=== PATIENT | female | born 1935 | race Caucasian/White ===

== ENCOUNTER 2016-06-29 09:10 | Emergency (ER) | payer OTHER, BC ==
--- NOTE | 2016-06-29 09:19 | PDOC ---
History of Present Illness - General Chief Complaint: Urinary Problem Stated Complaint: URINARY SX, DOESNT FEEL WELL, COUGH Time Seen by Provider: 06/29/16 09:14 History Source: Patient Exam Limitations: No Limitations - History of Present Illness Initial Comments: 06/29/16 09:24 This is an 80 yo F with a history of paroxysmal Afib on Elliquis and cardizem who presents to the ER with a complaint of dysuria and feeling ill. Briefly, pt symptoms began three weeks ago She called EMS due to palpitations, was brought to [facility] ER Kept overnight and rate controlled She was found to have a UTI Started on an anitbiotic but she can not remember the name She was brought to the ER again 5 days later due to palpitations, again rapid Afib Kept in the ER for 6 hours and discharged to home Pt was then seen by her Charter Boat Captain who is scheduling her for a pacemaker in 10 days. She reported UTI symptoms and was treated again with Cipro which she has taken. She was also seen at an urgent care x 2. 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 HEAD, EYES, EARS, NOSE AND THROAT: No: change in vision, ear pain, discharge, sore throat, throat swelling. CARDIOVASCULAR: No: chest pain, lightheadedness, palpitations, syncope RESPIRATORY: Yes: productive cough No: shortness of breath, wheezing, hemoptysis , stridor. GASTROINTESTINAL: No: nausea, vomiting, diarrhea, abdominal pain. GENITOURINARY: No: dysuria, hematuria, frequency, urgency, flank pain. MUSCULOSKELETAL: No: back pain, neck pain, joint pain, muscle swelling or pain SKIN AND BREASTS: No: lesions, pallor, rash or easy bruising. NEUROLOGIC: No: headache, vertigo, paresthesias, weakness ENDOCRINE: No: unexplained weight gain or loss HEMATOLOGIC/LYMPHATIC: No: anemia, easy bleeding, swelling nodes. GENERAL: The patient is in no acute distress. HEAD: Normal with no signs of trauma. EYES: PERRLA, EOMI, sclera anicteric, conjunctiva clear. ENT: Ears normal, nares patent, oropharynx clear without exudates. Moist mucous membranes. NECK: Normal range of motion, supple without lymphadenopathy, JVD, or masses. LUNGS: Breath sounds equal, clear to auscultation bilaterally. (+) rhonchi RUL HEART:Regular rate and rhythm, normal S1 and S2 without murmur, rub or gallop. ABDOMEN: Soft, nontender, normoactive bowel sounds. No guarding, no rebound. No masses palpable. EXTREMITIES: Normal range of motion, no edema. No clubbing or cyanosis. No erythema, or tenderness. NEUROLOGICAL: Cranial nerves II through XII grossly intact. Normal speech. No focal neurological deficits. MUSCULOSKELETAL: Back non-tender to palpation, no CVA tenderness SKIN: Warm, Dry, normal turgor, no rashes or lesions noted. 06/29/16 10:17 Past History - Past Medical History Allergies/Adverse Reactions: Allergies Allergy/AdvReac Type Severity Reaction Status Date / Time No Known Allergies Allergy Verified 06/29/16 09:14 Home Medications: Ambulatory Orders Apixaban [Eliquis -] 2.5 mg PO BID 06/29/16 Atorvastatin Ca [Lipitor] 10 mg PO HS 06/29/16 Cefpodoxime Proxetil [Vantin -] 100 mg PO BID #14 tablet 06/29/16 Diltiazem Cd [Cardizem Cd -] 240 mg PO DAILY 06/29/16 Fluoxetine HCl 10 mg PO AM 06/29/16 Prednisone [Deltasone -] 20 mg PO DAILY 06/29/16 Cardiac Disorders: Yes (AFIB) GI Disorders: Yes (INDIGESTION, HIATAL HERNIA) - Surgical History Cardiac Surgery: Yes (AV NODE ABLATION) - Immunization History Td Vaccination: Yes Immunization Up to Date: (UNKNOWN) - Psycho/Social/Smoking Cessation Hx Anxiety: No Suicidal Ideation: No Smoking Status: No Smoking History: Former smoker Have you smoked in the past 12 months: No Number of Cigarettes Smoked Daily: 0 If you are a former smoker, when did you quit?: 30 YEARS AGO Hx Alcohol Use: No Drug/Substance Use Hx: No Substance Use Type: None Hx Substance Use Treatment: No Heart Score/ECG Review #1 ECG reviewed & interpreted by me at: 10:18 06/29/16 10:18 Twelve-lead EKG was performed and reviewed by me. There is normal sinus rhythm with a slightly bradycardiac rate of 56 bpm. The axis is normal. The intervals are normal - pr:122ms, QRS:80ms, QTc:416ms. There are no ST or T wave abnormalities. ED Treatment Course - LABORATORY CBC & Chemistry Diagram: 06/29/16 09:51 06/29/16 09:51 Medical Decision Making - Medical Decision Making 06/29/16 10:17 Will do basic labs Will do X ray Will give IVF Will do EKG will re asess 06/29/16 10:22 Laboratory Tests 06/29/16 09:15 Urine Blood Negative Urine Nitrite Negative Ur Leukocyte Esterase Trace H 06/29/16 11:01 06/29/16 11:02 Laboratory Tests 06/29/16 06/29/16 06/29/16 09:51 09:51 09:51 WBC 15.6 H D Hgb 11.2 Hct 34.2 Plt Count 328 D Neutrophils % 76.6 D Lymphocytes % 11.4 D BUN 28 H D Creatinine 0.8 Random Glucose 88 D Creatine Kinase 36 Troponin I < 0.03 L 06/29/16 11:02 CXR: negative Pt states she spoke with her and he was upset that she left the home and he didn't know about it Pt states she does not want to stay in the hospital, which I recommended Pt elevated WBC is likely the result of prednisone use (she stopped taking 20mg BID yesterday, she took it for a total for 3 days) vs. URI No fevers Other labs nml Will discharge ot home (+) UTI Will give Cefpodoxime Follow up in 2 days with PMD (already scheduled) Clinical Impression: UTI, leukocytosis *DC/Admit/Observation/Transfer Diagnosis at time of Disposition: Urinary tract infection Qualifiers: Urinary tract infection type: acute cystitis Hematuria presence: without hematuria Qualified Code(s): N30.00 - Acute cystitis without hematuria - Discharge Dispostion Disposition: HOME Condition at time of disposition: Stable Admit: No - Patient Instructions Printed Discharge Instructions: DI for Urinary Tract Infection (UTI) Additional Instructions: Maci Thank you for coming in to the ER today Please take medications as prescribed You can stop the Prednisone Please monitor yourself for fevers and chills Keep your follow up appointment with your PMD Return to the ER for any other concerns or complaints
[2016-06-29 09:23] VITALS: TEMP 97.7; BMI 23.6
[2016-06-29 09:35] LABS: URINE APPEARANCE Clear; URINE BILIRUBIN Negative (NEGATIVE); URINE BLOOD Negative (NEGATIVE); URINE GLUCOSE (UA) Negative (NEGATIVE); URINE KETONE Negative (NEGATIVE); URINE NITRITE Negative (NEGATIVE); URINE PROTEIN Negative (NEGATIVE); URINE UROBILINOGEN 0.2 E.U/dl (0.2-1.0)
[2016-06-29] MEDS ORDERED: SODIUM CHLORIDE 500 ML IV STA (09:39)
[2016-06-29 09:45] LABS: URINE COLOR YELLOW; URINE LEUK ESTERASE TRACE (NEGATIVE)
[2016-06-29 10:18] LABS: MCH 30.3 pg (25.7-33.7); MCHC 32.6 g/dl (32.0-36.0); MEAN CELL VOLUME 92.9 fl (80-96); NEUTROPHILS 76.6 % (42.8-82.8); PLATELET COUNT 328 K/MM3 (134-434); RDW 12.7 % (11.6-15.6); WHITE BLOOD COUNT 15.6 K/mm3 (4.0-10.0)
[2016-06-29 10:22] LABS: URINE AMORPHOUS SEDIMENT 1+; URINE RBC 0-3 /hpf (0-3)
[2016-06-29 10:37] LABS: ALBUMIN 3.6 g/dl (3.5-5.0); ALK PHOS 75 U/L (32-92); ANION GAP 10 (8-16); CALCIUM 9.1 mg/dl (8.4-10.2); CO2 26 mmol/L (22-28); CREATININE 0.8 mg/dl (0.6-1.3); GLUCOSE,RANDOM 88 mg/dl (74-106); SGOT/AST 20 U/L (10-42); SGPT/ALT 12 U/L (10-40); TOT PROT 6.6 g/dl (6.4-8.3)
[2016-06-29 10:38] LABS: CPK(DFH) 36 IU/L (26-140)
[2016-06-29 10:48] LABS: TROPONIN I (DFP) < 0.03 ng/ml (0.03-0.50)
[2016-06-29 11:23] VITALS: BP 128/68; PULSE 75
[2016-06-29 11:24] LABS: BILIRUBIN,TOTAL < 0.3 mg/dl (0.2-1.0)
--- NOTE | 2016-06-30 21:34 | EKG ---
Test Reason : Blood Pressure : / mmHG Vent. Rate : 056 BPM Atrial Rate : 056 BPM P-R Int : 122 ms QRS Dur : 080 ms QT Int : 432 ms P-R-T Axes : 058 024 040 degrees QTc Int : 416 ms SINUS BRADYCARDIA OTHERWISE NORMAL ECG WHEN COMPARED WITH ECG OF 03-JUN-2015 15:17, NO SIGNIFICANT CHANGE WAS FOUND Confirmed by JESSICA LOPEZ MD ([id number]) on 06/30/2016 9:33:30 PM Referred By: TROY CARCAMO Confirmed By:JESSICA LOPEZ MD
== END 2016-06-29 11:25 | disposition home or self-care (01) ==
LOC: FER 09:10
DX: N30.00 Acute cystitis without hematuria (principal); I48.91 Unspecified atrial fibrillation; Z79.01 Long term (current) use of anticoagulants; Z87.891 Personal history of nicotine dependence
CPT/HCPCS: 36415; 71010-TC; 80053; 81003; 81015; 82550; 84484; 85025; 87086; 93005; 99285-25

== ENCOUNTER 2016-09-06 14:48 | Emergency (ER) | payer OTHER, BC ==
[2016-09-06 14:55] VITALS: TEMP 98.3; BMI 23.6
--- NOTE | 2016-09-06 14:55 | PDOC ---
History of Present Illness - General History Source: Patient Exam Limitations: No Limitations <Arya Gama - Last Filed: 09/06/16 15:06> - History of Present Illness Beta Steve taken at Home (Core Measure): Yes (atenelol) <Jose De La Garza - Last Filed: 09/06/16 17:21> - General Chief Complaint: Palpitations Stated Complaint: PALPITATIONS Time Seen by Provider: 09/06/16 14:55 - History of Present Illness Initial Comments: 09/06/16 15:06 The patient is a 80 year old female with a significant past medical history of paroxysmal Afib on Elliquis and cardizem who presents to the ER with a rapid heart beat since today. Patient states she was driving her to the ER when she started feeling her heart beat faster. She denies chest pain, back pain, SOB, fever, chills, nausea, vomiting. She had a Pacemaker placed jul 07 2016. Flat Machine C[facility] (Arya Gama) Past History <Arya Gama - Last Filed: 09/06/16 15:06> - Past Medical History Cardiac Disorders: Yes (AFIB) GI Disorders: Yes (INDIGESTION, HIATAL HERNIA) - Surgical History Cardiac Surgery: Yes (AV NODE ABLATION) - Immunization History Td Vaccination: Yes Immunization Up to Date: (UNKNOWN) - Psycho/Social/Smoking Cessation Hx Anxiety: No Suicidal Ideation: No Smoking Status: No Smoking History: Former smoker Have you smoked in the past 12 months: No Number of Cigarettes Smoked Daily: 0 If you are a former smoker, when did you quit?: 30 YEARS AGO Hx Alcohol Use: No Drug/Substance Use Hx: No Substance Use Type: None Hx Substance Use Treatment: No <Jose De La Garza - Last Filed: 09/06/16 17:21> - Past Medical History Allergies/Adverse Reactions: Allergies Allergy/AdvReac Type Severity Reaction Status Date / Time No Known Allergies Allergy Verified 09/06/16 14:49 Home Medications: Ambulatory Orders Apixaban [Eliquis -] 2.5 mg PO BID 06/29/16 Atorvastatin Ca [Lipitor] 10 mg PO HS 06/29/16 Review of Systems - Review of Systems Able to Perform ROS?: Yes <Arya Gama - Last Filed: 09/06/16 15:06> <Jose De La Garza - Last Filed: 09/06/16 17:21> - Review of Systems Comments:: 09/06/16 15:06 GENERAL/CONSTITUTIONAL: No fever or chills. No weakness. HEAD, EYES, EARS, NOSE AND THROAT: No change in vision. No ear pain or discharge. No sore throat. CARDIOVASCULAR: + rapid heart beat. No chest pain or shortness of breath. RESPIRATORY: No cough, wheezing, or hemoptysis. GASTROINTESTINAL: No nausea, vomiting, diarrhea or constipation. GENITOURINARY: No dysuria, frequency, or change in urination. MUSCULOSKELETAL: No joint or muscle swelling or pain. No neck or back pain. SKIN: No rash NEUROLOGIC: No headache, vertigo, loss of consciousness, or change in strength/ sensation. ENDOCRINE: No increased thirst. No abnormal weight change. HEMATOLOGIC/LYMPHATIC: No anemia, easy bleeding, or history of blood clots. ALLERGIC/IMMUNOLOGIC: No hives or skin allergy. (Arya Gama) *Physical Exam <Arya Gama - Last Filed: 09/06/16 15:06> <Jose De La Garza - Last Filed: 09/06/16 17:21> - Vital Signs Last Vital Signs Temp Pulse Resp BP Pulse Ox 98.3 F 93 H 18 111/68 97 09/06/16 14:49 09/06/16 15:00 09/06/16 15:00 09/06/16 14:49 09/06/16 15:00 - Physical Exam Comments: 09/06/16 15:07 GENERAL: Awake, alert, and fully oriented, in no acute distress HEAD: No signs of trauma EYES: PERRLA, EOMI, sclera anicteric, conjunctiva clear ENT: Auricles normal inspection, hearing grossly normal, nares patent, oropharynx clear without exudates. Moist mucosa NECK: Normal ROM, supple, no lymphadenopathy, JVD, or masses LUNGS: Breath sounds equal, clear to auscultation bilaterally. No wheezes, and no crackles HEART: Regular rate and rhythm, normal S1 and S2, no murmurs, rubs or gallops ABDOMEN: Soft, nontender, normoactive bowel sounds. No guarding, no rebound. No masses EXTREMITIES: Normal range of motion, no edema. No clubbing or cyanosis. No cords, erythema, or tenderness NEUROLOGICAL: Cranial nerves II through XII grossly intact. Normal speech, normal gait SKIN: Warm, Dry, normal turgor, no rashes or lesions noted. (Arya Gama) Heart Score/ECG Review <Arya Gama - Last Filed: 09/06/16 15:06> - ECG Intrepretation Rhythm: Regular Rhythm - [place]: Normal - ST and T Non Specific ST-T Wave changes: No <Jose De La Garza - Last Filed: 09/06/16 17:21> - ECG Intrepretation Comment:: 09/06/16 15:[address] changes. (Arya Gama) - ECG Impressions Comment:: 09/06/16 17:20 NSR at 88 (Jose De La Garza) ED Treatment Course <Arya Gama - Last Filed: 09/06/16 15:06> - LABORATORY CBC & Chemistry Diagram: 09/06/16 15:15 09/06/16 15:15 <Jose De La Garza - Last Filed: 09/06/16 17:21> - ADDITIONAL ORDERS Additional order review: Laboratory Results 09/06/16 09/06/16 15:15 15:15 Sodium 141 Potassium 4.1 Chloride 107 Carbon Dioxide 24 Anion Gap 10 BUN 22 H D Creatinine 0.9 Creat Clearance w eGFR > 60 Random Glucose 128 H D Calcium 8.9 Total Bilirubin 0.5 D AST 22 ALT 14 Alkaline Phosphatase 84 Creatine Kinase 101 Troponin I < 0.03 L Total Protein 6.2 L Albumin 3.5 09/06/16 15:15 RBC 3.26 L MCV 86.8 MCHC 31.8 L RDW 14.9 D MPV 8.7 Neutrophils % 68.1 Lymphocytes % 18.4 D Monocytes % 11.4 H Eosinophils % 1.6 D Basophils % 0.5 09/06/16 17:17 Pt is feeling much better. Denies any chest pain. Only felt heart racing after bringing to ER. Continue current medications If worsen return to ER Pt in agreement with plan (Jose De La Garza) - RADIOLOGY Radiology Studies Ordered: Category Date Time Status CHEST X-RAY PORTABLE* [RAD] Stat Radiology 09/06/16 14:58 Taken *DC/Admit/Observation/Transfer <Arya Gama - Last Filed: 09/06/16 15:06> - Discharge Dispostion Admit: No <Jose De La Garza - Last Filed: 09/06/16 17:21> Diagnosis at time of Disposition: Palpitation - Discharge Dispostion Disposition: HOME Condition at time of disposition: Good - Patient Instructions Printed Discharge Instructions: DI for Palpitations Additional Instructions: Continue current medications If worsen return to ER Follow up with Flat Machine Cutter - Attestations Scribe Attestion: 09/06/16 15:08 Documentation prepared by Arya Gama, acting as medical customer service representative for Jose De La Garza MD. (Arya Gama)
[2016-09-06 15:52] LABS: BASOPHIL 0.5 % (0-2.0); EOSINOPHIL 1.6 % (0-4.5); MCH 27.6 pg (25.7-33.7); MCHC 31.8 g/dl (32.0-36.0); MEAN CELL VOLUME 86.8 fl (80-96); MEAN PLT VOLUME 8.7 fl (7.5-11.1); NEUTROPHILS 68.1 % (42.8-82.8); PLATELET COUNT 283 K/MM3 (134-434); RDW 14.9 % (11.6-15.6); WHITE BLOOD COUNT 8.4 K/mm3 (4.0-10.8)
[2016-09-06 16:07] LABS: CPK(DFH) 101 IU/L (26-140)
[2016-09-06 16:08] LABS: ALBUMIN 3.5 g/dl (3.5-5.0); ALK PHOS 84 U/L (32-92); ANION GAP 10 (8-16); CALCIUM 8.9 mg/dl (8.4-10.2); CO2 24 mmol/L (22-28); CREATININE 0.9 mg/dl (0.6-1.3); GLUCOSE,RANDOM 128 mg/dl (74-106); SGOT/AST 22 U/L (10-42); SGPT/ALT 14 U/L (10-40); TOT PROT 6.2 g/dl (6.4-8.3)
[2016-09-06 16:34] LABS: BILIRUBIN,TOTAL 0.5 mg/dl (0.2-1.0)
[2016-09-06 16:36] LABS: COCKROFT - GAULT NT
[2016-09-06 17:14] LABS: TROPONIN I (DFP) < 0.03 ng/ml (0.03-0.50)
[2016-09-06 17:18] VITALS: PULSE 93
[2016-09-06 17:33] VITALS: BP 131/70
--- NOTE | 2016-09-07 10:21 | EKG ---
Test Reason : Blood Pressure : / mmHG Vent. Rate : 093 BPM Atrial Rate : 093 BPM P-R Int : 132 ms QRS Dur : 076 ms QT Int : 364 ms P-R-T Axes : 063 002 052 degrees QTc Int : 452 ms NORMAL SINUS RHYTHM NORMAL ECG WHEN COMPARED WITH ECG OF 29-JUN-2016 09:47, VENT. RATE HAS INCREASED BY 37 BPM Confirmed by CLYDE MARIA MD ([id number]) on 09/07/2016 10:21:37 AM Referred By: CLARKE KELLEY Confirmed By:CLYDE MARIA MD
== END 2016-09-06 17:34 | disposition home or self-care (01) ==
LOC: FER 14:48
DX: R00.2 Palpitations (principal); I48.91 Unspecified atrial fibrillation; Z87.891 Personal history of nicotine dependence; Z79.01 Long term (current) use of anticoagulants; Z95.0 Presence of cardiac pacemaker
CPT/HCPCS: 36415; 71010-TC; 80053; 82550; 84484; 85025; 93005; 99282-25

== ENCOUNTER 2016-09-30 14:27 | Observation (INO) | payer OTHER, BC ==
[2016-09-30 14:42] VITALS: BMI 23.6
--- NOTE | 2016-09-30 14:55 | PDOC ---
History of Present Illness - General History Source: Patient Exam Limitations: No Limitations <Arya Gama - Last Filed: 09/30/16 17:00> - History of Present Illness Initial Comments: 09/30/16 15:04 - General History Source: Patient Exam Limitations: No Limitations - History of Present Illness Initial Comments: 09/30/16 15:00 The patient is a 81 year old female with a significant past medical history of paroxysmal Afib (on Elliquis and cardizem), prior AV Node ablation, and HLD, who presents to the ER with a worsening rapid heartbeat, weakness, and lightheadedness today. Patient states she has been on and off having these symptoms for the past few days, but not as severe as today. She states she was getting out of the car this morning to go back inside her house, when she had to stop and catch her breath because of the symptoms. She states that she felt very lightheaded, and almost passed out. As soon as she got home she fell asleep for a few minutes on her chair, but symptoms still persisted. Patient had a pacemaker placed in June of this year She denies chest pain, back pain, fever, chills, nausea, vomiting. She had a Pacemaker placed jul 07 2016. She denies any recent intercurrent illnesses Database [facility]st[facility] (Dr. Yariel Morfin) Allergies to Medications: none Remainder of the review of systems is negative <Arya Gama - Last Filed: 09/30/16 14:59> <Shara Navarro - Last Filed: 10/01/16 08:18> - General Chief Complaint: Palpitations Stated Complaint: dizzy, rapid heart beat Time Seen by Provider: 09/30/16 14:32 Past History <Arya Gama - Last Filed: 09/30/16 17:00> - Past Medical History Cardiac Disorders: Yes (AFIB) GI Disorders: Yes (INDIGESTION, HIATAL HERNIA) - Surgical History Cardiac Surgery: Yes (AV NODE ABLATION) - Immunization History Td Vaccination: Yes Immunization Up to Date: (UNKNOWN) - Psycho/Social/Smoking Cessation Hx Anxiety: No Suicidal Ideation: No Smoking Status: No Smoking History: Former smoker Have you smoked in the past 12 months: No Number of Cigarettes Smoked Daily: 0 If you are a former smoker, when did you quit?: 30 YEARS AGO Information on smoking cessation initiated: No Hx Alcohol Use: No Drug/Substance Use Hx: No Substance Use Type: None Hx Substance Use Treatment: No <Shara Navarro - Last Filed: 10/01/16 08:18> - Past Medical History Allergies/Adverse Reactions: Allergies Allergy/AdvReac Type Severity Reaction Status Date / Time No Known Allergies Allergy Verified 09/30/16 14:29 Home Medications: Ambulatory Orders Apixaban [Eliquis -] 2.5 mg PO BID 06/29/16 Atorvastatin Ca [Lipitor] 10 mg PO HS 06/29/16 Diltiazem Cd [Cardizem Cd -] 240 mg PO DAILY 09/30/16 Review of Systems - Review of Systems Able to Perform ROS?: Yes Comments:: 09/30/16 15:05 12 point review of systems is as per history of present illness and otherwise negative <Shara Navarro - Last Filed: 10/01/16 08:18> *Physical Exam - Vital Signs Last Vital Signs Temp Pulse Resp BP Pulse Ox 98.6 F 118 H 20 143/66 97 09/30/16 14:28 09/30/16 14:28 09/30/16 14:28 09/30/16 14:28 09/30/16 14:28 <Arya Gama - Last Filed: 09/30/16 17:00> - Vital Signs Last Vital Signs Temp Pulse Resp BP Pulse Ox 98.6 F 118 H 20 143/66 97 09/30/16 14:28 09/30/16 14:28 09/30/16 14:28 09/30/16 14:28 09/30/16 14:28 - Physical Exam Comments: 09/30/16 15:04 PE Last Vital Signs Temp Pulse Resp BP Pulse Ox 98.6 F 152 H 18 124/81 97 09/30/16 14:28 09/30/16 14:59 09/30/16 14:59 09/30/16 14:59 09/30/16 14:59 GENERAL: The patient is awake, alert, and answering questions, in no respiratory distress HEAD: Normal with no signs of trauma. EYES: Normal MARISOL ENT: Normal ENT Inspection NECK: Normal range of motion, supple without lymphadenopathy LUNGS: Lungs Clear, Normal Breath Sounds HEART: Irregularly irregular w/ hr of about 120, normal S1 and S2 without murmur , rub or gallop. ABDOMEN: Soft, nontender, normoactive bowel sounds. No guarding, no rebound. No masses appreciated. EXTREMITIES: Normal range of motion. Trace of pedal edema bilaterally. No clubbing or cyanosis. No cords, erythema, or tenderness. NEUROLOGICAL: Cranial nerves II through XII grossly intact. Normal speech, Grossly nonfocal neurologic exam PSYCH: Normal mood, normal affect. SKIN: Warm, Dry, normal turgor, no rashes or lesions noted. <Arya Gama - Last Filed: 09/30/16 14:59> <Shara Navarro - Last Filed: 10/01/16 08:18> ED Treatment Course - LABORATORY CBC & Chemistry Diagram: 09/30/16 14:50 09/30/16 14:50 <Arya Gama - Last Filed: 09/30/16 17:00> - LABORATORY CBC & Chemistry Diagram: 09/30/16 14:50 09/30/16 14:50 - RADIOLOGY Radiology Studies Ordered: Category Date Time Status CHEST X-RAY PORTABLE* [RAD] Stat Radiology 09/30/16 14:38 Ordered <Shara Navarro - Last Filed: 10/01/16 08:18> Medical Decision Making - Medical Decision Making 09/30/16 17:[address] Reis <Arya Gama - Last Filed: 09/30/16 17:00> - Medical Decision Making 09/30/16 15:08 EKG Atrial flutter, with variable AV block, with a rate of 110 Normal axis Normal QRS duration QTC 469 When compared to the EKG of 09/06/16 Sinus rhythm was present on the prior EKG 81-year-old female with paroxysmal atrial fibrillation, has been in her usual state of health, but for the past few days has been having some palpitations Today she developed a more severe palpitations with presyncope dizziness and lightheadedness, but no chest pain or shortness of breath She arrives in atrial flutter with variable block, with a rapid heart rate, up to 150 Will start with Cardizem IV-patient states that she did take her usual Cardizem this morning Patient is anticoagulated on eliqus and has not missed any doses Patient has been given 5 mg of IV diltiazem, and put on a 2.5 mg drip for rate control She remains on the monitor between atrial flutter and atrial fibrillation, now with a heart rate in the 110s, after going up to the 150s prior to the institution of diltiazem 09/30/16 15:[address] 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 [employer] He's been considering amiodarone, and I will discuss this with our store keeper Agrees with management so far 09/30/16 15:32 Chest x-ray-NAD, and no change from prior 09/30/16 16:34 Patient converted to normal sinus rhythm on the Cardizem drip Given 30 mg of Cardizem po Dr Gonzalez - cardiology at bedside 09/30/16 16:44 Laboratory Results - last 24 hr 09/30/16 09/30/16 09/30/16 14:50 14:50 14:50 WBC 9.6 RBC 3.23 L Hgb 8.3 L Hct 26.2 L MCV 81.1 MCHC 31.8 L RDW 16.0 H Plt Count 324 MPV 9.0 Sodium 140 Potassium 4.5 Chloride 105 Carbon Dioxide 25 Anion Gap 10 BUN 20 H Creatinine 0.9 Creat Clearance w eGFR > 60 Random Glucose 103 Calcium 9.0 Magnesium 2.1 Total Bilirubin 0.3 D AST 22 ALT 11 D Alkaline Phosphatase 79 Creatine Kinase 94 Troponin I < 0.03 L B-Natriuretic Peptide 603.22 H Total Protein 6.5 Albumin 3.7 Urine Color Urine Appearance Urine pH Ur Specific [place] Urine Protein Urine Glucose (UA) Urine Ketones Urine Blood Urine Nitrite Urine Bilirubin Urine Urobilinogen Ur Leukocyte Esterase 09/30/16 14:57 WBC RBC Hgb Hct MCV MCHC RDW Plt Count MPV Sodium Potassium Chloride Carbon Dioxide Anion Gap BUN Creatinine Creat Clearance w eGFR Random Glucose Calcium Magnesium Total Bilirubin AST ALT Alkaline Phosphatase Creatine Kinase Troponin I B-Natriuretic Peptide Total Protein Albumin Urine Color Yellow Urine Appearance Clear Urine pH 7.0 Ur Specific [place] 1.015 Urine Protein Negative Urine Glucose (UA) Negative Urine Ketones Trace Urine Blood Negative Urine Nitrite Negative Urine Bilirubin Negative Urine Urobilinogen 0.2 e.u/dl Ur Leukocyte Esterase Trace 09/30/16 16:45 Prior hemoglobin was 9.0 1 month ago, Hb -8.3 today! Will institute anemia w/u and labs, and check stool for occult blood EKG #2-with patient in sinus rhythm Normal sinus rhythm 80, normal axis Normal AV and IV conduction time Normal QTC There is 1 isolated inverted T-wave in lead 3 that was not present on the EKG There are other nonspecific ST-T waves that were not present on the August EKG will taper off Cardizem drip, and admit patient here 09/30/16 17:28 Patient remains in normal sinus rhythm off the Cardizem drip Case and all results discussed with Dr. Jj Mcdermott-Will admit Will also need to workup the progressive anemia Patient denies any black or tarry stool <Shara Navarro - Last Filed: 10/01/16 08:18> *DC/Admit/Observation/Transfer - Attestations Scribe Attestion: 09/30/16 15:01 Documentation prepared by Arya Gama, acting as medical imaging director for Shara Navarro MD. <Arya Gama - Last Filed: 09/30/16 17:00> - Discharge Dispostion Admit: Yes <Shara Navarro - Last Filed: 10/01/16 08:18> Diagnosis at time of Disposition: Atrial fibrillation with rapid ventricular response, Anemia
[2016-09-30] MEDS ORDERED: DILTIAZEM INJECTION 125 MG in DEXTROSE 5%-WATER - 100 ML IVPB SCH (15:00)
[2016-09-30] MEDS ORDERED: dilTIAZem HCL 50 MG/10 ML - 10 ML VIAL IVPUSH ONE (15:03)
[2016-09-30] MEDS ORDERED: dilTIAZem HCL 50 MG/10 ML - 10 ML VIAL ONE (15:05)
[2016-09-30 15:25] LABS: ALBUMIN 3.7 g/dl (3.5-5.0); ALK PHOS 79 U/L (32-92); ANION GAP 10 (8-16); BILIRUBIN,TOTAL 0.3 mg/dl (0.2-1.0); CO2 25 mmol/L (22-28); CREATININE 0.9 mg/dl (0.6-1.3); GLUCOSE,RANDOM 103 mg/dl (74-106); MAGNESIUM 2.1 mg/dL (1.8-2.4); SGOT/AST 22 U/L (10-42); SGPT/ALT 11 U/L (10-40); TOT PROT 6.5 g/dl (6.4-8.3)
[2016-09-30] MEDS: SODIUM CHLORIDE 200 ML IV SCH (15:25)
[2016-09-30 15:26] LABS: CPK(DFH) 94 IU/L (26-140)
[2016-09-30 15:49] LABS: MCH 25.8 pg (25.7-33.7); MCHC 31.8 g/dl (32.0-36.0); MEAN CELL VOLUME 81.1 fl (80-96); PLATELET COUNT 324 K/MM3 (134-434); WHITE BLOOD COUNT 9.6 K/mm3 (4.0-10.8)
[2016-09-30 16:13] LABS: TROPONIN I (DFP) < 0.03 ng/ml (0.03-0.50)
[2016-09-30] MEDS ORDERED: dilTIAZem HCL 30 MG TABLET (FP) PO ONE (16:24)
--- NOTE | 2016-09-30 16:25 | CON.CARD ---
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 Patient states has recently been having intermittent palps for the past few weeks. Today sudden onset of severe palps associated with profound weakness and mild sob. Weakness/dizziness worsened and after sitting down she fell asleep/had syncope?. Patient had ablation for afib many years ago and remained in SR off AC until the beginning of this year --> was started on eliquis. Since then she has had progressive symptoms of fatigue, ? unknown indication. No h/o bleeding, No recent change in medications. No preceding illness, fever, chills, sweats, nausea, vomiting, diarrhea. No orthopnea, pnd, le edema, cp, transient neurologic symptoms. In ER started on diltiazem drip --> spontaneous conversion Of note, patient had ER visit last month for similar sx's. At that time hemoglobin slightly lower than baseline at 9.0. [facility] (Dr. Yariel Morfin) PMHx/PSHx: per hpi, additionally INDIGESTION, HIATAL HERNIA fam hx: no family hx of atrial fibrillation social hx: Former smoker ROS: per hpi, additionally, no h/a, visual disturbances, rashes, cough, congestion. Ambulatory Orders Apixaban [Eliquis -] 2.5 mg PO BID 06/29/16 Atorvastatin Ca [Lipitor] 10 mg PO HS 06/29/16 Diltiazem Cd [Cardizem Cd -] 240 mg PO DAILY 09/30/16 Current Medications Diltiazem HCl 125 mg/ Dextrose 125 mls @ 5 mls/hr IVPB TITR PETTY; 5 MG/HR PRN Reason: Protocol Last Admin: 09/30/16 15:14 Dose: 5 mls/hr Sodium Chloride (Normal Saline -) 200 mls @ 200 mls/hr IV ASDIR [facility]TY Last Admin: 09/30/16 15:25 Dose: 200 mls/hr Vital Signs - 24 hr 09/30/16 09/30/16 09/30/16 14:28 14:59 15:13 Temperature 98.6 F Pulse Rate 118 H Pulse Rate [ 152 H 133 H Apical] Respiratory 20 18 18 Rate Blood Pressure 143/66 Blood Pressure 124/81 112/94 [Left Arm] O2 Sat by Pulse 97 97 97 Oximetry (%) 09/30/16 09/30/16 09/30/16 15:14 15:35 15:55 Temperature Pulse Rate 133 H Pulse Rate [ 103 H 88 Apical] Respiratory 18 18 Rate Blood Pressure 112/94 Blood Pressure 93/61 108/70 [Left Arm] O2 Sat by Pulse 97 Oximetry (%) NAD, calm JVD flat, neck supple PPm site non tender, non-erythematous CTAB, nl effort RRR nl s1, s2 2/6 murmur at apex + bs soft nt nd ext without e/c/c + dp/pt aaox3 no carotid bruits no diaphoresis, jaundice. Intake & Output 09/28/16 09/29/16 09/30/16 10/01/16 07:59 07:59 07:59 07:59 Weight 142 lb CBC, BMP 09/30/16 14:50 09/30/16 14:50 Laboratory Tests 06/29/16 09/06/16 09/30/16 09:51 15:15 14:50 Hgb 11.2 9.0 L D Total Bilirubin 0.3 D AST 22 ALT 11 D Alkaline Phosphatase 79 Troponin I B-Natriuretic Peptide 603.22 H Albumin 3.7 09/30/16 14:50 Hgb Total Bilirubin AST ALT Alkaline Phosphatase Troponin I < 0.03 L B-Natriuretic Peptide Albumin EKG 09/30: aflutter with variable block, 108 bpm. EKG 09/30: SR tele: aflutter/fib initially with HR's 130's-140's, subsequent conversion to SR. CXR: clear lung tee Echo 05/2015: Nl lv/rv. 1+ ar. 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 afib with RVR - diagnosed many years ago and s/p ablation many years ago. Per prior notes appears to have been maintained in SR and off AC. Recently went back into afib around May of this year and was started on eliquis. - spontaneous conversion after initiation of diltiazem drip. - will transition from diltiazem drip to short acting po dilt, monitor for hypotension. If remains hypotensive in SR, would hold diltiazem. - patient with new onset anemia. Likely driving RVR. Further work up per pmd. - can hold AC temporarily until anemia stabilizes. If hemoglobin does not decrease further tomorrow, can consider heparin drip in am while work up is being done. PPM - recently placed at [place] in June. Not ppm dependent. Routine outpatient checks. MVP with Mod-sev MR - patient unaware of diagnosis. - patient euvolemic, no signs of valvular decompensation at this time. ? driving recurrence of atrial fibrillation HTN - currently running low. monitor with diltiazem. HL - con't outpatient statin regimen Note: patient states she spoke with her dermatology physician assistant and he is considering transfer to [place]
[2016-09-30] MEDS ORDERED: dilTIAZem HCL 30 MG TABLET (FP) ONE (16:28)
[2016-09-30 16:42] LABS: URINE APPEARANCE Clear; URINE BILIRUBIN Negative (NEGATIVE); URINE BLOOD Negative (NEGATIVE); URINE GLUCOSE (UA) Negative (NEGATIVE); URINE KETONE Trace (NEGATIVE); URINE LEUK ESTERASE Trace (NEGATIVE); URINE NITRITE Negative (NEGATIVE); URINE PROTEIN Negative (NEGATIVE); URINE UROBILINOGEN 0.2 E.U/dl (0.2-1.0)
[2016-09-30 16:43] LABS: URINE COLOR YELLOW
--- NOTE | 2016-09-30 22:10 | HP ---
Admitting History and Physical - Admission Chief Complaint: Pt w prior Hx PAFIB w acute onsetof lightheadedness and palpitation After Getting upfrom sitting position on the day of admission History of Present Illness: 81 F w Hx PAFIB on Eliquis & Cardizem, MVR w MOD-SEVERE MR, AV Alycia Ablation was in [facility] until stod up from sitting position in her car w a sudden onset of Lightheadednes w palpitations and SOB. Pt came to ED for Eval and Txm. Pts Rug Layer and PCP are in [facility]. History Source: Patient Limitations to Obtaining History: No Limitations - Past Medical History Cardiovascular: Yes: AFIB, HTN, Hyperlipdemia, Mitral Insufficiency (MVR w Mod- Severe MR), Other (AV Node Ablation) Heme/Onc: Yes: Anemia - Past Surgical History Additional Past Surgical History: AV Alycia Ablation - Smoking History Smoking history: Former smoker Have you smoked in the past 12 months: No Aproximately how many cigarettes per day: 0 If you are a former smoker, when did you quit?: 30 YEARS AGO - Alcohol/Substance Use Hx Alcohol Use: No Home Medications - Allergies Allergies/Adverse Reactions: Allergies Allergy/AdvReac Type Severity Reaction Status Date / Time No Known Allergies Allergy Verified 09/30/16 14:29 - Home Medications Home Medications: Ambulatory Orders Apixaban [Eliquis -] 2.5 mg PO BID 06/29/16 Atorvastatin Ca [Lipitor] 10 mg PO HS 06/29/16 Diltiazem Cd [Cardizem Cd -] 240 mg PO DAILY 09/30/16 Review of Systems - Review of Systems Constitutional: reports: No Symptoms Neck: reports: No Symptoms Cardiovascular: reports: Palpitations, Shortness of Breath (at ed upon arrival ; resolved now) Respiratory: reports: No Symptoms Physical Examination Vital Signs: Vital Signs Temperature 98.4 F 09/30/16 17:54 Pulse Rate 76 09/30/16 17:54 Respiratory Rate 18 09/30/16 20:25 Blood Pressure 128/57 09/30/16 17:54 O2 Sat by Pulse Oximetry (%) 97 09/30/16 16:57 Constitutional: Yes: No Distress, Calm Neck: Yes: WNL, Supple Cardiovascular: Yes: Regular Rate and Rhythm, Bruit (none), JVD (none), Gallop ( none) Respiratory: Yes: CTA Bilaterally Gastrointestinal: Yes: Normal Bowel Sounds ...Rectal Exam: Yes: Deferred Extremities: Yes: WNL Edema: No Peripheral Pulses WNL: Yes Integumentary: Yes: WNL Neurological: Yes: Alert, Oriented (x3), Other (NL Gait Ambulating w/o assistance) Psychiatric: Yes: WNL, Alert, Oriented Labs: Laboratory Last Values WBC 9.6 K/mm3 (4.0-10.8) 09/30/16 14:50 RBC 3.23 M/mm3 (3.60-5.2) L 09/30/16 14:50 Hgb 8.3 GM/dl (10.7-15.3) L 09/30/16 14:50 Hct 26.2 % (32.4-45.2) L 09/30/16 14:50 MCV 81.1 fl (80-96) 09/30/16 14:50 MCHC 31.8 g/dl (32.0-36.0) L 09/30/16 14:50 RDW 16.0 % (11.6-15.6) H 09/30/16 14:50 Plt Count 324 K/MM3 (134-434) 09/30/16 14:50 MPV 9.0 fl (7.5-11.1) 09/30/16 14:50 Retic Count 1.79 % (0.5-1.5) H 09/30/16 18:00 Sodium 140 mmol/L (136-145) 09/30/16 14:50 Potassium 4.5 mmol/L (3.5-5.1) 09/30/16 14:50 Chloride 105 mmol/L (98-107) 09/30/16 14:50 Carbon Dioxide 25 mmol/L (22-28) 09/30/16 14:50 Anion Gap 10 (8-16) 09/30/16 14:50 BUN 20 mg/dl (7-18) H 09/30/16 14:50 Creatinine 0.9 mg/dl (0.6-1.3) 09/30/16 14:50 Creat Clearance w eGFR > 60 (>60) 09/30/16 14:50 Random Glucose 103 mg/dl (74-106) 09/30/16 14:50 Calcium 9.0 mg/dl (8.4-10.2) 09/30/16 14:50 Magnesium 2.1 mg/dL (1.8-2.4) 09/30/16 14:50 Ferritin 4.811 ng/ml (6.9-282.5) L 09/30/16 18:00 Total Bilirubin 0.3 mg/dl (0.2-1.0) D 09/30/16 14:50 AST 22 U/L (10-42) 09/30/16 14:50 ALT 11 U/L (10-40) D 09/30/16 14:50 Alkaline Phosphatase 79 U/L (32-92) 09/30/16 14:50 Creatine Kinase 94 IU/L (26-140) 09/30/16 14:50 Troponin I < 0.03 ng/ml (0.03-0.50) L 09/30/16 14:50 B-Natriuretic Peptide 603.22 pg/ml (5-450) H 09/30/16 14:50 Total Protein 6.5 g/dl (6.4-8.3) 09/30/16 14:50 Albumin 3.7 g/dl (3.5-5.0) 09/30/16 14:50 Urine Color Yellow 09/30/16 14:57 Urine Appearance Clear 09/30/16 14:57 Urine pH 7.0 (4.5-8) 09/30/16 14:57 Ur Specific [place] 1.015 (1.005-1.025) 09/30/16 14:57 Urine Protein Negative (NEGATIVE) 09/30/16 14:57 Urine Glucose (UA) Negative (NEGATIVE) 09/30/16 14:57 Urine Ketones Trace (NEGATIVE) 09/30/16 14:57 Urine Blood Negative (NEGATIVE) 09/30/16 14:57 Urine Nitrite Negative (NEGATIVE) 09/30/16 14:57 Urine Bilirubin Negative (NEGATIVE) 09/30/16 14:57 Urine Urobilinogen 0.2 e.u/dl (0.2-1.0) 09/30/16 14:57 Ur Leukocyte Esterase Trace (NEGATIVE) 09/30/16 14:57 Stool Occult Blood Positive (NEGATIVE) 09/30/16 21:00 Imaging - Results Chest X-ray: Report Reviewed (NEG) Problem List - Problems (1) Atrial fibrillation with rapid ventricular response Assessment/Plan: Admission DX recorded while in ED ; Rx w Cardizem and Seroconverted; Pt HAS Spoken to her Primary Rug Layer; She Might be transfered to Hospital in [facility] If pt requires Terciary Care and is NOT stable to DC Home tomorrow as anticipated Code(s): I48.91 - UNSPECIFIED ATRIAL FIBRILLATION (2) Atrial flutter Assessment/Plan: Admission DxSEE Above +intermittent w AFB w RVR; Resolved medically IN ED; Cardio consulted while in ED Code(s): I48.92 - UNSPECIFIED ATRIAL FLUTTER Qualifiers: Atrial flutter type: unspecified Qualified Code(s): I48.92 - Unspecified atrial flutter (3) Palpitation Assessment/Plan: ASudden Onset Pw/o assoc chest pain or exertion ; Afib w RVR and Aflutter Reported in ED; Resolved Post Medical Cardioverson in ED Code(s): R00.2 - PALPITATIONS (4) Mitral valve regurgitation Assessment/Plan: Prio Hx Cardiology Consulted. No Evidence of CHF or Coronary Event. Code(s): I34.0 - NONRHEUMATIC MITRAL (VALVE) INSUFFICIENCY (5) HTN (hypertension) Assessment/Plan: stable w meds Code(s): I10 - ESSENTIAL (PRIMARY) HYPERTENSION (6) Anemia due to GI blood loss Assessment/Plan: Evident By ED CBC ; Retic ct ordered by ED was elevated as well as a POSITIVE Hemmocult x1. Will request GI consult. will rechek CBC in am. Code(s): D50.0 - IRON DEFICIENCY ANEMIA SECONDARY TO BLOOD LOSS (CHRONIC) (7) LGI bleed Assessment/Plan: From ED Eval foranemia ; Elev Retic Ct which supposes a possibility of Local Vs Distant LGI Bleed. GI Consult will be requested. will recheck order repeat CBC in Am as well as hemmocult Code(s): K92.2 - GASTROINTESTINAL HEMORRHAGE, UNSPECIFIED
[2016-10-01 08:42] LABS: MCH 25.7 pg (25.7-33.7); MEAN CELL VOLUME 80.3 fl (80-96); MEAN PLT VOLUME 8.8 fl (7.5-11.1); PLATELET COUNT 276 K/MM3 (134-434); RDW 15.8 % (11.6-15.6); WHITE BLOOD COUNT 6.8 K/mm3 (4.0-10.8)
--- NOTE | 2016-10-01 08:42 | EKG ---
Test Reason : Blood Pressure : / mmHG Vent. Rate : 108 BPM Atrial Rate : 344 BPM P-R Int : 000 ms QRS Dur : 076 ms QT Int : 350 ms P-R-T Axes : 000 013 052 degrees QTc Int : 469 ms ATRIAL FLUTTER WITH VARIABLE A-V BLOCK ABNORMAL ECG WHEN COMPARED WITH ECG OF 06-SEP-2016 15:00, ATRIAL FLUTTER HAS REPLACED SINUS RHYTHM Confirmed by BIANCA NDIAYE, MAKENNA ([id number]) on 10/01/2016 8:42:23 AM Referred By: FRANCINE LISA Confirmed By:MAKENNA VALENZUELA MD
[2016-10-01] MEDS: dilTIAZem HCL 30 MG TABLET (FP) PO SCH ×4 (10:22→21:13)
[2016-10-01] MEDS ORDERED: PANTOPRAZOLE 40 MG TABLET (FP) PO SCH (12:00)
--- NOTE | 2016-10-01 13:26 | PN ---
Progress Note (short form) - Note Progress Note: Patient seen and consult dictated. Patient with hx of chronic A fib on Eliquis admitted with weakness and signifcant anemia along with dark stool x 1 day. Likely with GI bleed ?upper vs lower source. No prior hx of bleeding and reports ?normal colonoscopy 5+ years ago in [facility]. No recent use of ASA or NSAIDS. Agree with PRBC transfusions and empiric Rx with PPI. Will arrange for both EGD and colonoscopy tomorrow (early afternoon); for Nulytely prep today.
--- NOTE | 2016-10-01 14:34 | CONS ---
DATE OF CONSULTATION: DATE OF DICTATION: 10/01/2016 Asked to evaluate this 81-year-old female with severe anemia and recent dark stool, heme positive. The patient has a history of chronic atrial fibrillation, on Eliquis and Cardizem, and prior AV node ablation, as well as hypercholesterolemia. The states that she had dark stool for 1 day and has had progressive weakness over the past 24 hour, for which she went to the emergency room at [facility]. She was admitted via the emergency room with an initial blood count showing a hemoglobin of 8.3 and hematocrit of 26.2. A repeat test this morning included hemoglobin of 6.6, hematocrit of 20.6. She had MCV of 80.3 with a normal platelet count and white count. Her BUN and creatinine were 20 and 0.9. The patient does not have a prior history of GI bleeding, ulcer disease, or colitis. She states she had a normal colonoscopy approximately 5 years ago near [facility]. She currently denies any abdominal pain, nausea, vomiting, diarrhea, or cramps. Her pre-hospital medications included Cardizem and atorvastatin. She is status post permanent pacemaker placement and is also on Eliquis, as noted. PHYSICAL EXAMINATION: General: She is a well-developed, slightly pale-appearing female, alert and oriented, in no apparent distress. Eyes: She has pale conjunctivae. Vital Signs: Notable for temperature of 97.9, heart rate of 72, blood pressure 104/38. Heart: She has an irregular heartbeat. Lungs: Clear. Gastrointestinal: Soft abdomen. Normoactive bowel sounds. No tenderness. The stool is guaiac positive. An 81-year-old female with what appears to be an acute drop in her hemoglobin and hematocrit, with dark stool, on Eliquis. Appears to have a GI bleed, ?upper versus lower source. Normal BUN and creatinine. Will treat patient empirically with proton pump inhibitor therapy for possibility of peptic disease, and also transfuse with packed red blood cells. Would hold Eliquis for the time being and will make arrangements for both upper and lower GI endoscopy tomorrow after prep. Will follow closely. ANIL ANGLIN M.D. BRITTANY/[id number]
--- NOTE | 2016-10-01 14:47 | EKG ---
Test Reason : Blood Pressure : / mmHG Vent. Rate : 080 BPM Atrial Rate : 080 BPM P-R Int : 130 ms QRS Dur : 076 ms QT Int : 392 ms P-R-T Axes : 065 010 020 degrees QTc Int : 452 ms SINUS RHYTHM NONSPECIFIC T WAVE ABNORMALITY WHEN COMPARED WITH ECG OF 30-SEP-2016 14:34, SINUS RHYTHM HAS REPLACED ATRIAL FLUTTER Confirmed by MAKENNA VALENZUELA MD ([id number]) on 10/01/2016 2:47:04 PM Referred By: MD CASAS Confirmed By:MAKENNA VALENZUELA MD
[2016-10-01] MEDS ORDERED: PEG 3350/NA SULF BICARB CL/KCL 4000 ML SOLN.RECON PO ONE (16:00)
--- NOTE | 2016-10-01 17:47 | PN ---
Progress Note (short form) - Note Progress Note: CC: afib S: s/p transfusion today. no cp, palps, sob, dizziness. still with weakness. 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 Yariel Morfin) Current Medications Atorvastatin Calcium (Lipitor -) 10 mg PO HS [facility] Diltiazem HCl (Cardizem -) 30 mg PO QID [facility] Last Admin: 10/01/16 14:34 Dose: 30 mg Sodium Chloride (Normal Saline -) 200 mls @ 200 mls/hr IV ASDIR [facility] Last Admin: 09/30/16 15:25 Dose: 200 mls/hr Pantoprazole Sodium (Protonix -) 40 mg PO DAILY [facility] Last Admin: 10/01/16 14:34 Dose: 40 mg Vital Signs - 24 hr 09/30/16 09/30/16 09/30/16 17:54 20:25 22:00 Temperature 98.4 F Pulse Rate 76 Respiratory 18 18 18 Rate Blood Pressure 128/57 O2 Sat by Pulse Oximetry (%) 09/30/16 10/01/16 10/01/16 22:49 02:00 05:44 Temperature 97.4 F L 98.1 F Pulse Rate 79 82 Respiratory 18 19 19 Rate Blood Pressure 114/47 127/49 O2 Sat by Pulse 94 L 96 96 Oximetry (%) 10/01/16 10/01/16 10/01/16 06:00 09:00 10:16 Temperature 97.9 F Pulse Rate 72 83 Respiratory 18 18 Rate Blood Pressure 104/38 155/59 O2 Sat by Pulse 94 L 94 L Oximetry (%) 10/01/16 10/01/16 10:20 14:33 Temperature 98.3 F Pulse Rate 76 Respiratory 18 Rate Blood Pressure 121/51 O2 Sat by Pulse 98 100 Oximetry (%) Intake & Output 09/29/16 09/30/16 10/01/16 10/02/16 07:59 07:59 07:59 07:59 Intake Total 500 Balance 500 Weight 142 lb NAD, calm JVD flat, neck supple PPm site non tender, non-erythematous CTAB, nl effort RRR nl s1, s2 2/6 murmur at apex + bs soft nt nd ext without e/c/c + dp/pt aaox3 no carotid bruits no diaphoresis, jaundice. CBC, BMP 10/01/16 07:27 09/30/16 14:50 EKG 09/30: aflutter with variable block, 108 bpm. EKG 09/30: SR tele: SR with intermittent afib. CXR: clear lung tee Echo 05/2015: Nl lv/rv. 1+ ar. 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 afib with RVR - diagnosed many years ago and s/p ablation many years ago. Per prior notes appears to have been maintained in SR and off AC. Recently went back into afib around May of this year and was started on eliquis. - spontaneous conversion after initiation of diltiazem drip. Transitioned to short acting po dilt --> still with breakthrough afib today 10/01, will uptitrate dose. - patient with new onset anemia. Likely driving RVR. Further work up per pmd. s/p transfusion today 10/01. Will hold AC. PPM - recently placed at [place] in June. Not ppm dependent. Routine outpatient checks. MVP with Mod-sev MR - patient unaware of diagnosis. - patient euvolemic, no signs of valvular decompensation at this time. ? driving recurrence of atrial fibrillation HTN - monitor with diltiazem. HL - con't outpatient statin regimen
[2016-10-01] MEDS: SODIUM CHLORIDE 200 ML IV SCH (18:22)
[2016-10-01 19:06] LABS: MCH 26.1 pg (25.7-33.7); MCHC 31.7 g/dl (32.0-36.0); MEAN CELL VOLUME 82.5 fl (80-96); MEAN PLT VOLUME 7.9 fl (7.5-11.1); PLATELET COUNT 294 K/MM3 (134-434); RDW 15.4 % (11.6-15.6); WHITE BLOOD COUNT 7.6 K/mm3 (4.0-10.8)
--- NOTE | 2016-10-01 21:08 | PN ---
Progress Note, Physician Chief Complaint: anxious for transfer to [facility] to have GI Procedure; concerened re anemia. Denies Chest Pain or sob or NICOLE or palpitations or NICOLE or palpitations or lightheadedness. Denies abdom pain. - Current Medication List Current Medications: Active Medications Atorvastatin Calcium (Lipitor -) 10 mg PO HS [facility] Diltiazem HCl (Cardizem -) 30 mg PO QID [facility] Last Admin: 10/01/16 18:22 Dose: 30 mg Sodium Chloride (Normal Saline -) 200 mls @ 200 mls/hr IV ASDIR [facility] Last Admin: 10/01/16 18:22 Dose: Not Given Pantoprazole Sodium (Protonix -) 40 mg PO DAILY [facility] Last Admin: 10/01/16 14:34 Dose: 40 mg - Objective Vital Signs: Vital Signs Temperature 98.3 F 10/01/16 14:33 Pulse Rate 76 10/01/16 14:33 Respiratory Rate 18 10/01/16 20:09 Blood Pressure 121/51 10/01/16 14:33 O2 Sat by Pulse Oximetry (%) 100 10/01/16 20:09 Constitutional: Yes: No Distress, Other (preoccupied) Neck: Yes: Supple Cardiovascular: Yes: Regular Rate and Rhythm, Bruit (no) Respiratory: Yes: CTA Bilaterally Gastrointestinal: Yes: Normal Bowel Sounds, Soft, Distention (none), Melena (= hemmocult IN ED), Tenderness (none) ...Rectal Exam: Yes: Deferred Extremities: Yes: Calf Tenderness (none) Edema: No Peripheral Pulses WNL: Yes Integumentary: Yes: WNL Neurological: Yes: Alert, Oriented, Other (non focal) Psychiatric: Yes: Alert, Oriented (x3) Labs: CBC, BMP 10/01/16 18:54 Hgb 09/30 8.2 -> 5 AM 6.2 => s/p PRBC x 1 ut -> 8.3 Problem List - Problems (1) Atrial fibrillation with rapid ventricular response Assessment/Plan: Admission DX recorded while in ED ; Rx w Cardizem and Cardioverted ; Pt, who had spoken to her Primary Document Analyst requested Transfer to [facility] for Further Eval of LGIB w Anemia ( see notes below). No Evidence of Cardiac or Hemodinamic instability at this time. Pt IS In NSR since medical Cardioversion in ED on 09/30/16. Code(s): I48.91 - UNSPECIFIED ATRIAL FIBRILLATION (2) Atrial flutter Assessment/Plan: Admission DxSEE Above +intermittent w AFB w RVR; Resolved medically IN ED and in NSR w SVR at this time; Cardio consulted while in ED and seen in Nurse Unit - > see Cardiac note. Code(s): I48.92 - UNSPECIFIED ATRIAL FLUTTER Qualifiers: Atrial flutter type: unspecified Qualified Code(s): I48.92 - Unspecified atrial flutter (3) Palpitation Assessment/Plan: Asymptomatic since in the ED. see above notes Code(s): R00.2 - PALPITATIONS (4) Mitral valve regurgitation Assessment/Plan: Prio Hx ; Cardiology Consulted - see notes. No Evidence of CHF or Coronary Event. Code(s): I34.0 - NONRHEUMATIC MITRAL (VALVE) INSUFFICIENCY (5) HTN (hypertension) Assessment/Plan: stable w meds Code(s): I10 - ESSENTIAL (PRIMARY) HYPERTENSION (6) Anemia due to GI blood loss Assessment/Plan: Evident By ED CBC ; Retic ct ordered by ED was elevated as well as a POSITIVE Hemmocult x1. She is s/p 1 Ut PRBC TODAY which was well tolerated. Hgb Incr from 6.2 to 8.3. Pt was accepted at [facility] in [facility] by her Primary Cardiology/ coverage for cotinued evaluation of LGIB and Anemia. THIS Transfer Was the pts wish and Her Primary Document Analyst accepted the transfer. It is scheduled for 10/02/16. Code(s): D50.0 - IRON DEFICIENCY ANEMIA SECONDARY TO BLOOD LOSS (CHRONIC) (7) LGI bleed Assessment/Plan: Evident from Positive hemmocult ED Eval for anemia ; Elev Retic Ct aall of which supposes a possibility of Local Vs Distant LGI OR UGI Bleed. GI Company Pilot saw pt who agreed pt should receive PRBC plus HOLD Eliquis and Prep for EGD/Colonoscopy. Pt requested that after the transfusion she were Transfered to her Primary Hospital (see above notes); The pt is to be transfered 10/02/16 for continued eval and treatment. I Suggest Cont GI eval and treatment=> Defer to the accepting Physician service. Code(s): K92.2 - GASTROINTESTINAL HEMORRHAGE, UNSPECIFIED
[2016-10-01] MEDS ORDERED: ATORVASTATIN CA 10 MG TABLET (FP) PO SCH (22:00)
[2016-10-01] MEDS ORDERED: dilTIAZem HCL 60 MG TABLET (FP) PO SCH (22:00)
[2016-10-02 03:49] VITALS: TEMP 98.2
[2016-10-02 05:52] VITALS: BP 120/48; PULSE 71
[2016-10-02 08:09] LABS: SERUM IRON 14 ug/dL (27-139); TOTAL IRON BINDING CAPACITY 343 ug/dL (250-450); UIBC 329 ug/dL (118-369)
[2016-10-02] MEDS ORDERED: PROPOFOL 20 ML ONE ×3 (13:11)
== END 2016-10-02 12:25 | disposition short-term general hospital (02) ==
LOC: FER 14:27 → FM/S 17:54
PROC: 30233N1 Transfusion of Nonautologous Red Blood Cells into Peripheral Vein, Percutaneous Approach (ICD-10-PCS; principal; 2016-09-30)
PROC: 3E033GC Introduction of Other Therapeutic Substance into Peripheral Vein, Percutaneous Approach (ICD-10-PCS; 2016-09-30)
DX: I48.0 Paroxysmal atrial fibrillation (principal); I48.92 Unspecified atrial flutter; I10 Essential (primary) hypertension; I34.1 Nonrheumatic mitral (valve) prolapse; I34.0 Nonrheumatic mitral (valve) insufficiency; Z95.0 Presence of cardiac pacemaker; E78.5 Hyperlipidemia, unspecified; Z79.01 Long term (current) use of anticoagulants; Z87.891 Personal history of nicotine dependence; R00.2 Palpitations; D50.0 Iron deficiency anemia secondary to blood loss (chronic); K92.2 Gastrointestinal hemorrhage, unspecified
CPT/HCPCS: 36415; 36430; 71010-TC; 80053; 81003; 82272; 82550; 82607; 82728; 82746; 83540; 83550; 83735; 83880; 84484; 85027; 85044; 86850; 86900; 86901; 86922; 93005; 93010; 99285-25; G0378; P9038; P9058

== ENCOUNTER 2018-06-12 21:20 | Emergency (ER) | payer OTHER, BC ==
[2018-06-12 21:31] VITALS: TEMP 97.9; BMI 22.6
--- NOTE | 2018-06-12 22:11 | PDOC ---
Attending Attestation - HPI HPI: 06/12/18 22:16 The patient is a 82 year old female with a significant past medical history of anemia, AFib (stopped Eliquis due to GI bleed), pacemaker (placed 06/2016), HTN , HLD, GERD, severe cognitive dysfunction, severe mitral valve prolapse, who presents to the ED with generalized weakness since earlier today. Patient reports a sudden onset of generalized weakness while watching TV. Patient states shes never felt like this before. Patient also reports urinary frequency and dysuria. Denies chest pain or shortness of breath. Denies cough or nasal congestion. Denies fever or chills. Denies abdominal pain, nausea, vomiting, or diarrhea. Denies any other symptoms. HPI is limited secondary to patient being a poor historia. - Physicial Exam PE: 06/12/18 22:16 GENERAL: Well developed, well nourished. Awake and alert. No acute distress. HEENT: Normocephalic, atraumatic. PERRLA, EOMI. No conjunctival pallor. Sclera are non- icteric. Moist mucous membranes. Oropharynx is clear. NECK: Supple. Full ROM. No JVD. Carotid pulses 2+ and symmetric, without bruits. No thyromegaly. No lymphadenopathy. CARDIOVASCULAR:+ holosystolic murmur. Regular rate and rhythm. No rubs, or gallops. Distal pulses are 2+ and symmetric. PULMONARY: No evidence of respiratory distress. Lungs clear to auscultation bilaterally. No wheezing, rales or rhonchi. ABDOMINAL: + Protuberant abdomen. Soft. Non-tender. Non-distended. No rebound or guarding. No organomegaly. Normoactive bowel sounds. MUSCULOSKELETAL Normal range of motion at all joints. No bony deformities or tenderness. No CVA tenderness. EXTREMITIES: No cyanosis. No clubbing. No edema. No calf tenderness. SKIN: Warm and dry. Normal capillary refill. No rashes. No jaundice. NEUROLOGICAL: Alert, awake, appropriate. Cranial nerves 2-12 intact. No deficits to light touch and temperature in face, upper extremities and lower extremities. No motor deficits in the in face, upper extremities and lower extremities. Normoreflexic in the upper and lower extremities. Normal speech. Toes are down- going bilaterally. Gait is normal without ataxia. PSYCHIATRIC: Cooperative. Good eye contact. Appropriate mood and affect. <Joseph Peters - Last Filed: 06/12/18 22:16> - Resident Resident Name: Austin Jiménez - ED Attending Attestation I have performed the following: I have examined & evaluated the patient, The case was reviewed & discussed with the resident, I agree w/resident's findings & plan, Exceptions are as noted - Medical Decision Making 06/13/18 01:21 pt's primary doctor is Dr Mykel Donnelly ekg is a paced rhythm @ 60 bpm negative troponin she has a history of anemia and has hbg=8. negative urinalysis 06/13/18 01:24 chemistries reviewed ,normal creatinine,glucose,electrolytes <Tayler Soria - Last Filed: 06/13/18 01:25> Attestations - Attestations 06/12/18 22:16 Documentation prepared by Joseph Peters, acting as veterinary medical officer for Tayler Soria MD <Joseph Peters - Last Filed: 06/12/18 22:16>
--- NOTE | 2018-06-12 22:19 | PDOC ---
History of Present Illness - General Chief Complaint: Urinary Problem Stated Complaint: WEAKNESS Time Seen by Provider: 06/12/18 21:45 History Source: Patient Exam Limitations: Dementia - History of Present Illness Initial Comments: Patient is an 82 y/o F w/ complex PMHx including HTN, HLD, anemia, GERD, unspecified neurocognitive disorder (affirms taking Aricept), MVP, MR, Afib s/p PPM off AC d/t GIB, remote SVT ablation complicated by cardiac tamponade, p/w the worst generalized weakness of her lifetime x 1-2 hours w/o focal or lateralizing signs/symptoms as well as increased urinary frequency but denies pain or burning on urination. Denies CP, SOB, palpitations, ÁLVAREZ, f/c, n/v/c/d, LOC, dizziness, near-syncope, fall, trauma. No other complaints. 06/12/18 22:12 Past History - Travel Traveled outside of the country in the last 30 days: No Close contact w/someone who was outside of country & ill: No - Past Medical History Allergies/Adverse Reactions: Allergies Allergy/AdvReac Type Severity Reaction Status Date / Time No Known Allergies Allergy Verified 12/08/17 14:08 Home Medications: Ambulatory Orders Diltiazem HCl [Cartia Xt] 120 mg PO DAILY 06/12/18 Esomeprazole Magnesium 40 mg PO DAILY 06/12/18 Fluoxetine HCl 10 mg PO DAILY 06/12/18 Fluoxetine HCl [Prozac] 20 mg PO DAILY 06/12/18 Sucralfate [Carafate -] 1 gm PO DAILY 06/12/18 Anemia: Yes Cardiac Disorders: Yes (A-fib) COPD: No Dementia: Yes GI Disorders: Yes (INDIGESTION, HIATAL HERNIA) HTN: Yes Hypercholesterolemia: Yes - Surgical History Cardiac Surgery: Yes (AV NODE ABLATION pacemaker) - Immunization History Td Vaccination: Yes Immunization Up to Date: (UNKNOWN) - Suicide/Smoking/Psychosocial Hx Smoking Status: No Smoking History: Former smoker Have you smoked in the past 12 months: No Number of Cigarettes Smoked Daily: 0 If you are a former smoker, when did you quit?: 30 yrs ago Information on smoking cessation initiated: No Hx Alcohol Use: No Drug/Substance Use Hx: No Substance Use Type: None Hx Substance Use Treatment: No Review of Systems - Review of Systems Comments:: As per HPI 06/12/18 22:16 *Physical Exam - Vital Signs Last Vital Signs Temp Pulse Resp BP Pulse Ox 97.9 F 60 18 122/43 L 96 06/12/18 21:28 06/12/18 21:28 06/12/18 21:28 06/12/18 21:28 06/12/18 21:28 - Physical Exam Comments: Gen: A&Ox3, NAD, somewhat confused HEENT: NC/AT, miotic but equally responsive pupils, EOMI, MMM, no exudates, palatal prosthesis s/p cleft repair appreciated Neck: supple, NT, no LAD, no JVD CV: RRR, holosystolic murmur Resp: CTA b/l Abd: +bs, soft, NT, ND Ext: 2+ pulses, wwp, no edema, no calf tenderness Neuro: bait man, motor, sensory systems w/o focal deficit Psych: somewhat confused and tangential Skin: warm, dry, normal turgor 06/12/18 22:16 Moderate Sedation - Procedure Monitoring Vital Signs: Procedure Monitoring Vital Signs Temperature 97.9 F 06/12/18 21:28 Pulse Rate 60 06/12/18 21:28 Respiratory Rate 18 06/12/18 21:28 Blood Pressure 122/43 L 06/12/18 21:28 O2 Sat by Pulse Oximetry (%) 96 06/12/18 21:28 ED Treatment Course - LABORATORY CBC & Chemistry Diagram: 06/12/18 22:50 06/12/18 22:50 Medical Decision Making - Medical Decision Making H&P provides little clarification of diagnosis. Ordered the following: CBC, CMP , Mg, Phos, UA, troponin, EKG, influenza swab. 06/12/18 22:19 Flu swab negative, no leukocytosis, Hb 8.8, was 10.9 in December but documented h/ o chronic anemia prior to that. Low MCV likely indicated iron deficiency and will require outpt f/u. Will perform MADELEINE. 06/12/18 23:11 Isolated BUN elevation otherwise chemistries wnl. Troponin negative. 06/12/18 23:28 Home med list obtained by family friend: Diltiazem 120 daily, fluoxetine 20 daily, esomeprazole 40 daily, donepezil 10 daily. Patient unable to provide urine sample. Will obtain urine by straight catheter. 06/12/18 23:[address] Smooth Camejo, forensic social worker is Dr. Cam, both are [facility] physicians. 06/12/18 23:45 Obtained urine. Will additionally send culture. 06/12/18 23:56 On MADELEINE no gross blood, no hemorrhoids, no masses, no stool in vault, no stool on finger. FOBT sent. 06/13/18 00:00 EKG showing paced rhythm, reassuring. 06/13/18 00:07 Patient states she is feeling significantly better. 06/13/18 00:13 UA negative. 06/13/18 01:08 *DC/Admit/Observation/Transfer Diagnosis at time of Disposition: Anemia Qualifiers: Anemia type: unspecified type Qualified Code(s): D64.9 - Anemia, unspecified - Discharge Dispostion Disposition: HOME Condition at time of disposition: Stable - Referrals Referrals: Smooth Camejo [Non Staff, Medical] - - Patient Instructions Printed Discharge Instructions: DI for Iron Deficiency Anemia-Adult Additional Instructions: You presented to the Emergency Department because of weakness. Lab tests showed that you are anemic, likely due to iron deficiency. This will require outpatient followup evaluation. Otherwise physical exam and all studies were normal. Please follow up with your primary medical doctor, Dr. Camejo, at your earliest opportunity. If you experience any new chest pain, shortness of breath, loss of consciousness, falling down, feeling as if you will faint or fall, fever, chills, nausea and vomiting, or any new or concerning symptom, please return to the Emergency Department. - Post Discharge Activity
[2018-06-12 23:04] LABS: BASO % 1.6 % (0-2.0); EOS % 1.1 % (0-4.5); HEMATOCRIT 27.2 % (32.4-45.2); HEMOGLOBIN 8.8 GM/dL (10.7-15.3); LYMPH % 11.6 % (8-40); MCH 24.7 pg (25.7-33.7); MCHC 32.3 g/dl (32.0-36.0); MEAN CELL VOLUME 76.5 fl (80-96); MEAN PLT VOLUME 8.7 fl (7.5-11.1); MONO % 12.1 % (3.8-10.2); NEUT % 73.6 % (42.8-82.8); PLATELET COUNT 264 K/MM3 (134-434); RBC 3.55 M/mm3 (3.60-5.2); RDW 18.5 % (11.6-15.6); WHITE BLOOD COUNT 9.9 K/mm3 (4.0-10.0)
[2018-06-12 23:28] LABS: ALK PHOS 108 U/L (45-117); ANION GAP 5 MMOL/L (8-16); BILIRUBIN,TOTAL 0.2 mg/dL (0.2-1); BLOOD UREA NITROGEN 27 mg/dL (7-18); CALCIUM 7.8 mg/dL (8.5-10.1); CHLORIDE 107 mmol/L (98-107); CO2 28 mmol/L (21-32); GLUCOSE,RANDOM 97 mg/dL (74-106); MAGNESIUM 2.2 mg/dL (1.8-2.4); PHOSPHOROUS 3.7 mg/dL (2.5-4.9); POTASSIUM 4.6 mmol/L (3.5-5.1); SGOT/AST 17 U/L (15-37); SGPT/ALT 21 U/L (13-61); SODIUM 140 mmol/L (136-145); TOT PROT 6.3 g/dl (6.4-8.2)
[2018-06-13 00:11] LABS: URINE APPEARANCE CLEAR; URINE BILIRUBIN NEGATIVE (<2.0 mg/dL); URINE COLOR YELLOW; URINE GLUCOSE (UA) NEGATIVE (NEGATIVE); URINE KETONE NEGATIVE (NEGATIVE); URINE LEUK ESTERASE TRACE (NEGATIVE); URINE NITRITE NEGATIVE (NEGATIVE); URINE PROTEIN 1+ (NEGATIVE)
[2018-06-13 01:00] LABS: EPI CELLS RARE /HPF (FEW); URINE HYALINE CAST 1 /lpf; URINE MUCUS MODERATE
[2018-06-13 02:10] VITALS: BP 115/66; PULSE 69
--- NOTE | 2018-06-13 09:50 | EKG ---
Test Reason : Blood Pressure : / mmHG Vent. Rate : 060 BPM Atrial Rate : 060 BPM P-R Int : 192 ms QRS Dur : 080 ms QT Int : 466 ms P-R-T Axes : 059 034 030 degrees QTc Int : 466 ms Atrial-paced rhythm ABNORMAL ECG WHEN COMPARED WITH ECG OF 08-DEC-2017 14:22, ELECTRONIC ATRIAL PACEMAKER HAS REPLACED ATRIAL FIBRILLATION VENT. RATE HAS DECREASED BY 47 BPM Confirmed by JESSICA NDIAYE, JESSICA ([id number]) on 06/13/2018 9:50:41 AM Referred By: Confirmed By:JESSICA LOPEZ MD
== END 2018-06-13 02:10 | disposition home or self-care (01) ==
LOC: JER 21:20
DX: D64.9 Anemia, unspecified (principal); I48.91 Unspecified atrial fibrillation; I10 Essential (primary) hypertension; I34.1 Nonrheumatic mitral (valve) prolapse; I34.0 Nonrheumatic mitral (valve) insufficiency; Z95.0 Presence of cardiac pacemaker; E78.5 Hyperlipidemia, unspecified; F03.90 Unspecified dementia, unspecified severity, without behavioral disturbance, psychotic disturbance, mood disturbance, and anxiety; K21.9 Gastro-esophageal reflux disease without esophagitis
CPT/HCPCS: 36415; 80053; 81003; 81015; 82272; 83735; 84100; 84484; 85025; 87086; 87804; 93005; 93010; 99283-25

== ENCOUNTER 2018-06-17 14:23 | Emergency (ER) | payer OTHER, BC ==
[2018-06-17] MEDS ORDERED: SODIUM CHLORIDE 0.9% 500 ML INFUS.BAG IV ONE (14:30)
[2018-06-17 14:31] VITALS: BMI 22.6
--- NOTE | 2018-06-17 14:33 | PDOC ---
Rapid Medical Evaluation Chief Complaint: Urinary Problem Time Seen by Provider: 06/17/18 14:27 Medical Evaluation: Allergies Allergy/AdvReac Type Severity Reaction Status Date / Time No Known Allergies Allergy Verified 12/08/17 14:08 06/17/18 14:28 I have performed a brief in-person evaluation of this patient. The patient presents with a chief complaint of: call back f/u + UTI Pertinent physical exam findings: NAD I have ordered the following:UA and CX CBC, CMP PIV, ABX Pt symptomatically hypotensive fluid ordered. Afebrile will hold on ABX The patient will proceed to the ED for further evaluation. 06/17/18 14:31
[2018-06-17 14:49] LABS: EOS % 1.8 % (0-4.5); HEMATOCRIT 30.9 % (32.4-45.2); HEMOGLOBIN 9.9 GM/dL (10.7-15.3); LYMPH % 14.5 % (8-40); MCH 24.8 pg (25.7-33.7); MCHC 32.1 g/dl (32.0-36.0); MEAN CELL VOLUME 77.3 fl (80-96); MEAN PLT VOLUME 8.4 fl (7.5-11.1); MONO % 10.7 % (3.8-10.2); PLATELET COUNT 287 K/MM3 (134-434); WHITE BLOOD COUNT 8.7 K/mm3 (4.0-10.0)
[2018-06-17 15:17] LABS: ALBUMIN 3.1 g/dl (3.4-5.0); ALK PHOS 110 U/L (45-117); ANION GAP 7 MMOL/L (8-16); BILIRUBIN,TOTAL 0.3 mg/dL (0.2-1); BLOOD UREA NITROGEN 15 mg/dL (7-18); CALCIUM 8.4 mg/dL (8.5-10.1); CHLORIDE 106 mmol/L (98-107); CO2 27 mmol/L (21-32); GLUCOSE,RANDOM 113 mg/dL (74-106); POTASSIUM 4.3 mmol/L (3.5-5.1); SGOT/AST 19 U/L (15-37); SGPT/ALT 14 U/L (13-61); SODIUM 140 mmol/L (136-145); TOT PROT 6.6 g/dl (6.4-8.2)
--- NOTE | 2018-06-17 15:58 | PDOC ---
History of Present Illness - General Chief Complaint: Urinary Problem Stated Complaint: UTI Time Seen by Provider: 06/17/18 14:27 History Source: Patient, Old Records Exam Limitations: Dementia - History of Present Illness Initial Comments: 06/17/18 15:34 82-year-old female presents to the emergency room for evaluation of contaminated urine and complaint of dizziness and weakness on the phone when the ED provider called during callbacks today. Patient on previous admission with positive guaiac in stool, borderline low H&H and trace leukocytes and 4 white cells in urine. Patient denies urinary complaints presently fever, chills , headache, nausea chest pain or shortness of breath. Timing/Duration: unsure Severity: moderate Associated Symptoms: reports: weakness Past History - Travel Traveled outside of the country in the last 30 days: No Close contact w/someone who was outside of country & ill: No - Past Medical History Allergies/Adverse Reactions: Allergies Allergy/AdvReac Type Severity Reaction Status Date / Time No Known Allergies Allergy Verified 12/08/17 14:08 Home Medications: Ambulatory Orders Diltiazem HCl [Cartia Xt] 120 mg PO DAILY 06/12/18 Esomeprazole Magnesium 40 mg PO DAILY 06/12/18 Fluoxetine HCl 10 mg PO DAILY 06/12/18 Fluoxetine HCl [Prozac] 20 mg PO DAILY 06/12/18 Sucralfate [Carafate -] 1 gm PO DAILY 06/12/18 Anemia: Yes Cardiac Disorders: Yes (A-fib) COPD: No Dementia: Yes GI Disorders: Yes (INDIGESTION, HIATAL HERNIA) HTN: Yes Hypercholesterolemia: Yes - Surgical History Cardiac Surgery: Yes (AV NODE ABLATION pacemaker) - Immunization History Td Vaccination: Yes Immunization Up to Date: (UNKNOWN) - Suicide/Smoking/Psychosocial Hx Smoking Status: No Smoking History: Never smoked Have you smoked in the past 12 months: No Number of Cigarettes Smoked Daily: 0 If you are a former smoker, when did you quit?: 30 yrs ago Information on smoking cessation initiated: No Hx Alcohol Use: No Drug/Substance Use Hx: No Substance Use Type: None Hx Substance Use Treatment: No Patient Lives Alone: No Lives with/in: spouse/SO Review of Systems - Review of Systems Able to Perform ROS?: Yes Constitutional: Yes: Loss of Appetite, Weakness HEENTM: No: Symptoms Reported Respiratory: No: Symptoms reported Cardiac (ROS): No: Symptoms Reported ABD/GI: Yes: Poor Appetite. No: Blood Streaked Bowels, Rectal Bleeding : No: Symptoms Reported Integumentary: No: Symptoms Reported Neurological: Yes: Weakness, Dizziness Endocrine: No: Symptoms Reported *Physical Exam - Vital Signs Last Vital Signs Temp Pulse Resp BP Pulse Ox 98.2 F 60 16 112/42 L 100 06/17/18 14:27 06/17/18 14:27 06/17/18 14:27 06/17/18 14:27 06/17/18 14:27 - Physical Exam General Appearance: Yes: Nourished, Appropriately Dressed. No: Apparent Distress HEENT: positive: EOMI, MARISOL, TMs Normal, Pharynx Normal (dry). negative: Pale Conjunctivae Neck: positive: Supple Respiratory/Chest: positive: Lungs Clear, Normal Breath Sounds. negative: Respiratory Distress, Accessory Muscle Use Cardiovascular: positive: Regular Rhythm, Regular Rate. negative: Murmur Gastrointestinal/Abdominal: positive: Normal Bowel Sounds, Soft. negative: Distended, Guarding, Tenderness Rectal Exam: positive: heme negative stool (Black stool noted). negative: hemorrhoids Extremity: negative: Pedal Edema Integumentary: positive: Normal Color, Dry, Warm Neurologic: positive: Normal Mood/Affect, Motor Strength 5/5 Moderate Sedation - Procedure Monitoring Vital Signs: Procedure Monitoring Vital Signs Temperature 98.2 F 06/17/18 14:27 Pulse Rate 60 06/17/18 14:27 Respiratory Rate 16 06/17/18 14:27 Blood Pressure 112/42 L 06/17/18 14:27 O2 Sat by Pulse Oximetry (%) 100 06/17/18 14:27 ED Treatment Course - LABORATORY CBC & Chemistry Diagram: 06/17/18 14:40 06/17/18 14:40 - ADDITIONAL ORDERS Additional order review: Laboratory Results 06/17/18 06/17/18 14:55 14:40 Sodium 140 Potassium 4.3 Chloride 106 Carbon Dioxide 27 Anion Gap 7 L BUN 15 Creatinine 1.0 Creat Clearance w eGFR 53.08 Random Glucose 113 H Calcium 8.4 L Total Bilirubin 0.3 AST 19 ALT 14 Alkaline Phosphatase 110 Total Protein 6.6 Albumin 3.1 L Stool Occult Blood Negative 06/17/18 14:40 RBC 4.00 MCV 77.3 L MCHC 32.1 RDW 19.0 H MPV 8.4 Neutrophils % 72.0 Lymphocytes % 14.5 D Monocytes % 10.7 H Eosinophils % 1.8 Basophils % 1.0 - Medications Given in the ED: ED Medications Discontinued Medications Generic Name Dose Route Start Last Admin Trade Name Jose PRN Reason Stop Dose Admin Sodium Chloride 500 ml 06/17/18 14:30 06/17/18 14:58 Normal Saline - IV 06/17/18 14:31 500 ml ONCE ONE Administration Medical Decision Making - Medical Decision Making 06/17/18 15:36 Chief complaint weakness and dizziness. Patient also with questionable UTI from previous visit 4 days prior Patient generally weak, Black stool noted in sanitary pull-up. Stool negative for occult blood. Patient denies taking iron or Pepto-Bismol. Patient does have history of dementia. Home health aid present and states patient has been more weak than usual and more forgetful Plan: Labs, urine, cardiac exercise physiologist, EKG, 06/17/18 16:38 Laboratory Tests 06/17/18 06/17/18 06/17/18 14:40 14:40 14:55 WBC 8.7 Hgb 9.9 L Hct 30.9 L MCV 77.3 L MCH 24.8 L RDW 19.0 H Neutrophils % 72.0 Monocytes % 10.7 H Sodium 140 Potassium 4.3 Chloride 106 Carbon Dioxide 27 Anion Gap 7 L BUN 15 Creatinine 1.0 Creat Clearance w eGFR 53.08 Random Glucose 113 H Calcium 8.4 L AST 19 ALT 14 Albumin 3.1 L Stool Occult Blood Negative
[2018-06-17] MEDS ORDERED: CEFTRIAXONE 1 GM in DEXTROSE 5%-WATER - 50 ML IVPB ONE (17:59)
[2018-06-17] MEDS ORDERED: CEFTRIAXONE 1 GM/50 ML BAG ONE (18:34)
--- NOTE | 2018-06-17 19:21 | PDOC ---
*Physical Exam - Vital Signs Last Vital Signs Temp Pulse Resp BP Pulse Ox 98.2 F 60 16 112/42 L 100 06/17/18 14:27 06/17/18 14:27 06/17/18 14:27 06/17/18 14:27 06/17/18 14:27 ED Treatment Course - LABORATORY CBC & Chemistry Diagram: 06/17/18 14:40 06/17/18 14:40 - ADDITIONAL ORDERS Additional order review: Laboratory Results 06/17/18 06/17/18 14:55 14:40 Sodium 140 Potassium 4.3 Chloride 106 Carbon Dioxide 27 Anion Gap 7 L BUN 15 Creatinine 1.0 Creat Clearance w eGFR 53.08 Random Glucose 113 H Calcium 8.4 L Total Bilirubin 0.3 AST 19 ALT 14 Alkaline Phosphatase 110 Total Protein 6.6 Albumin 3.1 L Stool Occult Blood Negative 06/17/18 14:40 RBC 4.00 MCV 77.3 L MCHC 32.1 RDW 19.0 H MPV 8.4 Neutrophils % 72.0 Lymphocytes % 14.5 D Monocytes % 10.7 H Eosinophils % 1.8 Basophils % 1.0 - Medications Given in the ED: ED Medications Discontinued Medications Generic Name Dose Route Start Last Admin Trade Name Freq PRN Reason Stop Dose Admin Ceftriaxone Sodium 1 gm/ 50 mls @ 100 mls/hr 06/17/18 17:59 06/17/18 18:55 Dextrose IVPB 06/17/18 18:28 100 mls/hr ONCE ONE Administration Sodium Chloride 500 ml 06/17/18 14:30 06/17/18 14:58 Normal Saline - IV 06/17/18 14:31 500 ml ONCE ONE Administration Medical Decision Making - Medical Decision Making Patient signed out to me by JENNY Moya Patient currently resting in NAD, denies any complaints Pending results of UA 06/17/18 19:20 UA negative Repeat BP was 126/86 Patient appears well and denies any complaints She is A&Ox3 Results discussed with patient's healthcare consulting manager and Patient stable for dc 06/17/18 21:15
[2018-06-17 19:33] LABS: URINE APPEARANCE CLEAR; URINE BILIRUBIN NEGATIVE (<2.0 mg/dL); URINE COLOR YELLOW; URINE GLUCOSE (UA) NEGATIVE (NEGATIVE); URINE KETONE NEGATIVE (NEGATIVE); URINE LEUK ESTERASE NEGATIVE (NEGATIVE); URINE NITRITE NEGATIVE (NEGATIVE); URINE PROTEIN NEGATIVE (NEGATIVE); URINE UROBILINOGEN NEGATIVE mg/dL (0.2-1.0)
[2018-06-17 21:31] VITALS: BP 126/72; PULSE 82; TEMP 97.8
== END 2018-06-17 21:59 | disposition home or self-care (01) ==
LOC: JER 14:23
DX: R53.81 Other malaise (principal); Z87.440 Personal history of urinary (tract) infections; I10 Essential (primary) hypertension; I48.91 Unspecified atrial fibrillation; Z79.01 Long term (current) use of anticoagulants; E78.00 Pure hypercholesterolemia, unspecified; D64.9 Anemia, unspecified; F03.90 Unspecified dementia, unspecified severity, without behavioral disturbance, psychotic disturbance, mood disturbance, and anxiety
CPT/HCPCS: 36415; 80053; 81003; 82272; 85025; 87086; 96365; 99282-25

== ENCOUNTER 2018-06-26 02:04 | Emergency (ER) | payer OTHER, BC ==
--- NOTE | 2018-06-26 02:08 | PDOC ---
History of Present Illness - General Stated Complaint: NOT FEELING WELL Time Seen by Provider: 06/26/18 02:07 History Source: Patient, Family, Old Records Exam Limitations: No Limitations - History of Present Illness Initial Comments: 06/26/18 02:22 82 yr old woman with Afib s/p PPM placement, HTN, HLD, GERD, anemia, hx of GI bleed, hx of AV raya ablation, sever MVR BIBEMS from home due to generalized weakness. She woke up 30mins prior to being brought to the ED feeling weak and "not feeling well." generalized weakness began last yr around halloween a/w decreased ability to walk and lethargy. has had poor appetite, sleeping more, and physically feels slower than her usual. It has become more pronounced 4wks ago. notes she used to be able to climb the staircase upto their bedroom but now she can no longer do that and has to take the stairlift, he feels that her gait appears unsteady. notes 4lb unintentional weight loss in last 4wks was evaluated by Dr. 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 Ramsey Zarco at [facility], pt is looking for a new PCP locally. She saw him 2wks ago and recommendation was to incr WORD PROCESSOR OPERATOR hours. denies fevers, chest pain, palpitations, abdominal pain, cough, diarrhea/ constipation. Pmhx: HTN, HLD, GERD, anemia, hxof GI bleed, Afib(off eliquis due to GI bleed in 2017 as per previous notes) Surghx: hx of AV raya ablation for SVT many years ago complicated by cardiac tamponade, PPM 06/2016([employer]- model # L331 Atrial lead # 7441 ventricular lead # 7442) Forensic Computer Examiner: Dr. Yariel Bagley-Sikeston [phone] PMD: Dr. Lyons EP: [facility] Sochx: former smoker quit 30yr ago, denies ETOH, illicit drug use. lives with her , they one healthy adult child together. 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 Past History - Travel Traveled outside of the country in the last 30 days: No Close contact w/someone who was outside of country & ill: No - Past Medical History Allergies/Adverse Reactions: Allergies Allergy/AdvReac Type Severity Reaction Status Date / Time No Known Allergies Allergy Verified 06/26/18 02:19 Home Medications: Ambulatory Orders Diltiazem HCl [Cartia Xt] 120 mg PO DAILY 06/12/18 Esomeprazole Magnesium 40 mg PO DAILY 06/12/18 Fluoxetine HCl 10 mg PO DAILY 06/12/18 Fluoxetine HCl [Prozac] 20 mg PO DAILY 06/12/18 Sucralfate [Carafate -] 1 gm PO DAILY 06/12/18 Cephalexin [Keflex] 500 mg PO BID #14 capsule 06/26/18 Anemia: Yes Cardiac Disorders: Yes (A-fib) COPD: No Dementia: Yes GI Disorders: Yes (INDIGESTION, HIATAL HERNIA) HTN: Yes Hypercholesterolemia: Yes - Surgical History Cardiac Surgery: Yes (AV NODE ABLATION,pacemaker: [employer]- model # L331 Atrial lead # 7) - Immunization History Td Vaccination: Yes Immunization Up to Date: (UNKNOWN) - Suicide/Smoking/Psychosocial Hx Smoking Status: No Smoking History: Former smoker (quit 30 yrs ago) Have you smoked in the past 12 months: No Number of Cigarettes Smoked Daily: 0 If you are a former smoker, when did you quit?: 30 yrs ago Hx Alcohol Use: No Drug/Substance Use Hx: No Substance Use Type: None Hx Substance Use Treatment: No Patient Lives Alone: No Lives with/in: spouse/SO Review of Systems - Review of Systems Constitutional: Yes: Loss of Appetite, Weakness, Unintentional Wgt. Loss. No: Chills, Diaphoresis, Fever, Malaise HEENTM: No: Blurred Vision, Recent change in vision, Double Vision, Ear Pain, Tinnitus, Hearing Loss, Difficulty Swallowing, Mouth Swelling Respiratory: No: Cough, Shortness of Breath, SOB with Exertion, SOB at Rest, Wheezing Cardiac (ROS): No: Chest Pain, Edema, Irregular Heart Rate, Lightheadedness, Palpitations, Syncope ABD/GI: Yes: Poor Appetite, Poor Fluid Intake. No: Abdominal Distended, Blood Streaked Bowels, Constipated, Diarrhea, Difficulty Swallowing, Nausea, Rectal Bleeding, Vomiting, Abdominal cramping, Tarry Stools : No: Burning, Dysuria, Flank Pain, Hematuria, Incontinence, Urgency Musculoskeletal: No: Back Pain, Joint Pain, Joint Swelling, Muscle Pain, Muscle Weakness, Neck Pain, Joint Stiffness Integumentary: No: Rash, Sweating Neurological: Yes: Unsteady Gait. No: Headache, Numbness, Tingling, Tremors, Ataxia, Dizziness Psychiatric: Yes: Sleep Pattern Change. No: Anxiety, Mood Swings, Change in Appetite Endocrine: No: Intolerance to Cold, Intolerance to Heat, Increased Hunger, Increased Thirst Hematologic/Lymphatic: No: Anemia, Easy Bleeding, Easy Bruising *Physical Exam - Physical Exam General Appearance: Yes: Appropriately Dressed, Thin HEENT: positive: EOMI, MARISOL, Normal Voice, Pharynx Normal, Hearing Grossly Normal, Other (prosthetic teeth). negative: Pale Conjunctivae, Photophobia, Pharyngeal Erythema, Tonsillar Exudate, Sinus Tenderness Neck: positive: Trachea midline, Normal Thyroid, Supple. negative: Lymphadenopathy (R), Lymphadenopathy (L), Thyromegaly Respiratory/Chest: positive: Lungs Clear, Normal Breath Sounds. negative: Crackles, Rales, Wheezing Cardiovascular: positive: Regular Rate, S1, S2, Systolic Murmur, Other (paced rhythm) Vascular Pulses: Dorsalis-Pedis (R): 2+, Doralis-Pedis (L): 2+ Gastrointestinal/Abdominal: positive: Normal Bowel Sounds. negative: Tender, Hernia, Mass Musculoskeletal: negative: CVA Tenderness Extremity: positive: Normal Capillary Refill. negative: Tender, Pedal Edema, Swelling, Calf Tenderness, Erythema Integumentary: positive: Normal Color, Dry. negative: Petechiae, Rash, Ecchymosis Neurologic: positive: mirror inspector II-XII NML intact, Fully Oriented (to person, place, date, president. immediate recall 3/3, 5min recall 0/3), Normal Mood/Affect, Motor Strength 5/5 (shoulder/bicep/tricep/wrist extension/flexion. hand mill tender washing. hip/knee/ankle extension and flexion. ) Deep Tendon Reflexes: Bicep (L): 2+, Bicep (R): 2+ ED Treatment Course - LABORATORY CBC & Chemistry Diagram: 06/26/18 03:24 06/26/18 03:24 Medical Decision Making - Medical Decision Making 06/26/18 02:31 This patient's 3rd visit to the ED since the beginning of the month without any acute findings. will repeat CBC, chem, chest xray and u/a to check for any leucocytosis, anemia , electrolyte abnormalities, infiltrate or UTI that may explain her symptoms. EKG showed normal paced rhythm, without acute ischemic changes on my read, pt has normal BP, hr, breathing ra comfortable with normal pulse ox, and is afebrile. unlikely to be cardiac in nature. TSH was normal on recent ED visit, no indication to repeat 06/26/18 04:35 labs without leucocytosis or anemia. U/A with trace leuk esterase +, 1 dose rocephin IV in ED. 06/26/18 04:56 chem with corrected Ca 8.9, normal. cxray with no acute infiltrate on my read. pt can complete antibiotic course at home and f/u with PCP. will provide referral to resident clinic at [facility]. *DC/Admit/Observation/Transfer Diagnosis at time of Disposition: Weakness - Discharge Dispostion Disposition: HOME Decision to Admit order: No - Prescriptions Prescriptions: Cephalexin [Keflex] 500 mg PO BID #14 capsule - Referrals Referrals: [facility] [place] [facility] [place] [Provider Group] - Patient Instructions Printed Discharge Instructions: DI for Urinary Tract Infection (UTI), DI for Poor Appetite Additional Instructions: You were evaluated in the ED for weakness. Your chest xray and blood work were normal. Your urine did show a possible urinary tract infection. You received one dose of IV antibiotics in the ED and can take Keflex 500mg twice day for 7 days to complete treatment for the infection. Please follow-up with your primary care doctor for post-hospital evaluation within one week, if you do not have one, a referral to the [facility] Medical clinic has been provided for you. Please call to make an appointment. If you develop chest pain, trouble breathing, fevers or any new symptoms please return to the hospital. - Post Discharge Activity
[2018-06-26 02:19] VITALS: BP 128/75; PULSE 60; TEMP 97.5; BMI 22.6
--- NOTE | 2018-06-26 02:28 | PDOC ---
Attending Attestation - Resident Resident Name: Fran Mckeon - ED Attending Attestation I have performed the following: I have examined & evaluated the patient, The case was reviewed & discussed with the resident, I agree w/resident's findings & plan - HPI HPI: 06/26/18 04:11 Pt comes with generalized weakness. - Physicial Exam PE: 06/26/18 04:11 Agree with resident exam. - Medical Decision Making 06/26/18 04:11 WBC is normal. 06/26/18 04:36 UA has trace leukocytes and CHEM is still pending 06/26/18 06:30 Chem normal; home with keflex. [facility] will take pt and her home. Heart Score/ECG Review - ECG Intrepretation Rhythm: Regular Rhythm - [place]: Normal - P and IA Delta Wave(s) Present: No WPW: No - QRS Poor R Wave Progression: No Q Wave Present: No - ST and T Early Repolarization: No Non Specific ST-T Wave changes: No Flattened T Waves: No Prolonged Q-T Interval: Yes - ECG Impressions Comment:: 06/26/18 02:45 ATRIAL PACEMAKER
[2018-06-26 04:02] LABS: BASO % 0.7 % (0-2.0); EOS % 1.9 % (0-4.5); HEMATOCRIT 32.8 % (32.4-45.2); HEMOGLOBIN 10.7 GM/dL (10.7-15.3); LYMPH % 21.6 % (8-40); MCH 26.4 pg (25.7-33.7); MCHC 32.5 g/dl (32.0-36.0); MEAN CELL VOLUME 81.1 fl (80-96); MEAN PLT VOLUME 9.3 fl (7.5-11.1); NEUT % 64.8 % (42.8-82.8); PLATELET COUNT 224 K/MM3 (134-434); RBC 4.04 M/mm3 (3.60-5.2); RDW 24.8 % (11.6-15.6); WHITE BLOOD COUNT 8.8 K/mm3 (4.0-10.0)
[2018-06-26 04:07] LABS: URINE APPEARANCE CLEAR; URINE BILIRUBIN NEGATIVE (<2.0 mg/dL); URINE COLOR LTYELLOW; URINE GLUCOSE (UA) NEGATIVE (NEGATIVE); URINE KETONE NEGATIVE (NEGATIVE); URINE LEUK ESTERASE TRACE (NEGATIVE); URINE NITRITE NEGATIVE (NEGATIVE); URINE PROTEIN NEGATIVE (NEGATIVE); URINE UROBILINOGEN NEGATIVE mg/dL (0.2-1.0)
[2018-06-26 04:15] LABS: EPI CELLS RARE /HPF (FEW); URINE MUCUS RARE
[2018-06-26] MEDS ORDERED: CEFTRIAXONE 1 MG in DEXTROSE 5%-WATER - 50 ML IVPB ONE (04:24)
[2018-06-26 04:40] LABS: ALBUMIN 3.2 g/dl (3.4-5.0); ALK PHOS 95 U/L (45-117); ANION GAP 6 MMOL/L (8-16); BILIRUBIN,TOTAL 0.2 mg/dL (0.2-1); BLOOD UREA NITROGEN 11 mg/dL (7-18); CALCIUM 8.3 mg/dL (8.5-10.1); CHLORIDE 106 mmol/L (98-107); CO2 29 mmol/L (21-32); GLUCOSE,RANDOM 93 mg/dL (74-106); POTASSIUM 4.4 mmol/L (3.5-5.1); SGOT/AST 15 U/L (15-37); SGPT/ALT 18 U/L (13-61); SODIUM 141 mmol/L (136-145); TOT PROT 6.5 g/dl (6.4-8.2)
[2018-06-26] MEDS ORDERED: CEFTRIAXONE 1 GM/50 ML BAG ONE (05:04)
[2018-06-26] MEDS ORDERED: CEPHALEXIN MONOHYDRATE 500 MG CAPSULE (UD) PO ONE (05:21)
[2018-06-26] MEDS ORDERED: CEPHALEXIN MONOHYDRATE 500 MG CAPSULE (UD) ONE ×2 (05:33→05:44)
--- NOTE | 2018-06-30 11:58 | EKG ---
Test Reason : Blood Pressure : / mmHG Vent. Rate : 060 BPM Atrial Rate : 060 BPM P-R Int : 210 ms QRS Dur : 082 ms QT Int : 498 ms P-R-T Axes : 048 011 025 degrees QTc Int : 498 ms Atrial-paced rhythm with prolonged AV conduction PROLONGED QT ABNORMAL ECG WHEN COMPARED WITH ECG OF 13-JUN-2018 00:04, NO SIGNIFICANT CHANGE WAS FOUND Confirmed by MARIANO NDIAYE, LACIE ([id number]) on 06/30/2018 11:57:42 AM Referred By: Confirmed By:LACIE QUINTANA MD
== END 2018-06-26 05:49 | disposition home or self-care (01) ==
LOC: JER 02:04
DX: N39.0 Urinary tract infection, site not specified (principal); R53.1 Weakness; I10 Essential (primary) hypertension; E78.5 Hyperlipidemia, unspecified; K21.9 Gastro-esophageal reflux disease without esophagitis; D64.9 Anemia, unspecified; I48.91 Unspecified atrial fibrillation; Z95.0 Presence of cardiac pacemaker; Z87.19 Personal history of other diseases of the digestive system; Z86.79 Personal history of other diseases of the circulatory system
CPT/HCPCS: 36415; 71045-TC-FY; 80053; 81003; 81015; 85025; 87086; 93005; 93010; 99283-25

== ENCOUNTER 2018-10-30 10:06 | Emergency (ER) | payer OTHER, BC ==
[2018-10-30] MEDS ORDERED: SODIUM CHLORIDE 0.9% 500 ML INFUS.BAG IV ONE (10:33)
[2018-10-30 10:38] VITALS: BP 124/58; PULSE 60; TEMP 97.9; BMI 22.4
--- NOTE | 2018-10-30 10:59 | PDOC ---
Documentation entered by Austin Cortez SCRIBE, acting as scribe for Delano Headley MD. Delano Headley MD: This documentation has been prepared by the Diego chowdhury Daniel, SCRIBE, under my direction and personally reviewed by me in its entirety. I confirm that the documentation accurately reflects all work, treatment, procedures, and medical decision making performed by me. Attending Attestation - Resident Resident Name: James - ED Attending Attestation I have performed the following: I have examined & evaluated the patient, The case was reviewed & discussed with the resident, I agree w/resident's findings & plan, Exceptions are as noted - HPI HPI: 10/30/18 10:34 The patient is an 83 year old female with a past medical history of afib s/p pacemaker placement, HTN, HLD, GERD, anemia, GI bleed, AV raya ablation, mitral valve regurgitation brought in by EMS today for evaluation of dizziness and weakness. The patient is unable to say definitively what she is feeling describing it as a generalized weakness and lightheadedness. Pt denies room- spinning dizziness. Denies focal weakness in any extremity. She reports feeling restless last night and was unable to get a good night's sleep. The patients aide states that the patient was weaker this morning and needed more assistance than normal getting dressed, prompting her to call EMS. Patient denies fever, chills. Denies chest pain, shortness of breath. Denies nausea, vomiting, diarrhea, abdominal pain. Allergies: NKA - Physicial Exam PE: 10/30/18 10:34 GENERAL: Awake, alert, and fully oriented, in no acute distress. HEAD: No signs of trauma EYES: PERRLA, EOMI, sclera anicteric, conjunctiva clear ENT: Auricles normal inspection, hearing grossly normal, nares patent, oropharynx clear without exudates. Moist mucosa NECK: Nontender, no stepoffs, Normal ROM, supple, no lymphadenopathy, JVD, or masses LUNGS: Breath sounds equal, clear to auscultation bilaterally. No wheezes, and no crackles HEART: Regular rate and rhythm, normal S1 and S2, no murmurs, rubs or gallops ABDOMEN: Soft, nontender, normoactive bowel sounds. No guarding, no rebound. No masses EXTREMITIES: Normal range of motion, no edema. No clubbing or cyanosis. No cords, erythema, or tenderness NEUROLOGICAL: Cranial nerves II through XII intact. 5/5 strength and sensation in all extremities, Normal speech, normal gait, normal cerebellar function SKIN: Warm, Dry, normal turgor, no rashes or lesions noted. - Medical Decision Making 10/30/18 10:58 83 F with lightheadedness and generalized weakness. Vitals stable, with normal neuro exam. - Labs, trop, UA - Gentle IVF bolus 10/30/18 13:24 Labs and UA wnl Pt received 500cc NS Now reports that she feels much better Pt ambulated around ED without any lightheadedness/dizziness. States weakness has resolved Pt is well appearing, with normal vitals. Clinically stable for DC at this time. I discussed the physical exam findings, ancillary test results and final diagnoses with the patient. I answered all of the patient's questions. The patient was satisfied with the care received and felt comfortable with the discharge plan and treatment plan. The patient agrees to follow up with the primary care physician within 24-72 hours.
--- NOTE | 2018-10-30 11:02 | PDOC ---
History of Present Illness - General Chief Complaint: Lightheaded Stated Complaint: WEAKNESS/DIZZINESS Time Seen by Provider: 10/30/18 10:15 History Source: Patient, Care Provider (Home Health Aid at bedside.), Spouse ( present at bedside.), Old Records Exam Limitations: No Limitations - History of Present Illness Initial Comments: HPI: 83 y/o female BIBEMS to [facility] ED complaining of dizziness in head. When asked to clarify, pt stated the room was not spinning but she had a pressure in her head. Again when asked to clarify, the pt stated she did not have pain but felt generally weak this morning after waking. at bedside reports his was restless during the night. Home health aid at bedside reports the pt was unsteady on her feet this morning. In her usual state of health until this morning. Reassuring outpatient PCP f/u last week. Denies any recent change in medications or increased life stressors. Was evaluated three times for similar symptoms in June 2018. Eventually diagnosed with a UTI (culture reportedly contaminated). Sensation resolved after short antibiotic course. Social Hx: - Lives at home with . - Walks independently without a walker or wheelchair Medical Hx: - HTN - HLD - Anemia - GERD - Unspecified neurocognitive disorder (on Donepezil) - MVP - MR - Afib s/p PPM on Eliquis - h/o GIB - Remote SVT ablation complicated by cardiac tamponade Review of Systems: In addition to that documented in the HPI above, the additional ROS was obtained : Constitutional: Denies fevers, chills, syncope, or falls Head: Denies vision or hearing changes ENMT: Denies sore throat CV: Denies chest pain Resp: Denies SOB GI: Denies vomiting or diarrhea, decreased appetite : Denies painful urination, increased urinary frequency, hematuria MSK: Denies recent trauma Skin: Denies new rashes Neuro: Denies new numbness or tingling or weakness Endocrine: Denies polyuria Heme: Denies bleeding or bruising Physical Examination: Constitutional: Nontoxic elderly female in no acute distress or obvious discomfort. Found semi-fowlers on hospital bed. Alert and oriented x4. Answered all questions appropriately and completely. Speech was non-labored, non- pressured. Head: Normocephalic. No obvious external signs of trauma. Ears: Hearing grossly intact. Nose: No nasal discharge. Neck: Supple, trachea is midline. Cardiovascular / Chest: Irregularly irregular rate and rhythm. ? crescendo systolic murmur. No rubs, clicks, or gallops. Peripheral pulses: radial pulses full. No anterior chest wall tenderness. Respiratory: Breathing unlabored. Equal chest rise and fall. Clear to auscultation bilaterally. No stridor, no wheezing, no rhonchi. Gastrointestinal: abdomen is soft, non-tender, non-distended. Neuro: Alert and oriented. Moving all four extremities spontaneously. No focal deficits. Upper and lower extremities: proximal and distal strength 5/5. Community Services Coordinator strength 5/5 - equal and symmetric. Plantar flexion and dorsiflexion 5/5. No nuchal rigidity. Skin: Warm, dry, and intact. : No R or L CVA tenderness. Psych: Affect: appropriate. Mood: normal. MDM: *Reviewed vital signs, nursing notes, and prior visit documentation (if available). 83 y/o female presenting for extremely vague dizziness in head versus head pressure (but not pain) or general weakness in setting of poor sleep overnight ( as reported by ). ROS ford negative. Afebrile. Vitals unremarkable for hypotension or tachycardia. Physical exam as described above. Pt very well appearing. Suspect symptoms are secondary to poor sleep overnight. CBC unremarkable for anemia or leukocytosis. CMP unremarkable for significant electrolyte derangement. Troponin not elevated. EKG unremarkable for ischemic changes. CXR unremarkable for cardiopulmonary findings. UA unremarkable for pyuria, nitrites, and leukocyte esterase. Pt reassessed and reports feeling much improved. Ate lunch. Requested to go home. Observed walking without difficulty. Denies dizziness. Suspect stable to discharge home. James Garsia M.D., PGY1 Emergency Medicine Resident Past History - Past Medical History Allergies/Adverse Reactions: Allergies Allergy/AdvReac Type Severity Reaction Status Date / Time No Known Allergies Allergy Verified 10/30/18 10:12 Home Medications: Ambulatory Orders Diltiazem HCl [Cartia Xt] 120 mg PO DAILY 06/12/18 Esomeprazole Magnesium 40 mg PO DAILY 06/12/18 Fluoxetine HCl [Prozac] 20 mg PO DAILY 06/12/18 Sucralfate [Carafate -] 1 gm PO TID 06/12/18 Apixaban [Eliquis] 2.5 mg PO BID 10/30/18 Atorvastatin Ca [Lipitor] 10 mg PO HS 10/30/18 Donepezil HCl 10 mg PO DAILY 10/30/18 Memantine HCl 10 mg PO BID 10/30/18 Anemia: Yes Cardiac Disorders: Yes (A-fib, PACEMAKER) COPD: No Dementia: Yes GI Disorders: Yes (INDIGESTION, HIATAL HERNIA) HTN: Yes Hypercholesterolemia: Yes - Surgical History Cardiac Surgery: Yes (AV NODE ABLATION,pacemaker: [employer]- model # L331 Atrial lead # 7) - Immunization History Td Vaccination: Yes Immunization Up to Date: (UNKNOWN) - Suicide/Smoking/Psychosocial Hx Smoking Status: No Smoking History: Former smoker Have you smoked in the past 12 months: No Number of Cigarettes Smoked Daily: 0 If you are a former smoker, when did you quit?: 30 YEARS AGO Information on smoking cessation initiated: No Hx Alcohol Use: No Drug/Substance Use Hx: No Substance Use Type: None Hx Substance Use Treatment: No *Physical Exam - Vital Signs Vital Signs Period Temp Pulse Resp BP Sys/Rice Pulse Ox Last 24 Hr 97.9 F-97.9 F 60 18-20 124/58 95-100 ED Treatment Course - LABORATORY CBC & Chemistry Diagram: 10/30/18 10:40 10/30/18 10:35 *DC/Admit/Observation/Transfer Diagnosis at time of Disposition: Pacemaker ECG pattern, Weakness generalized - Discharge Dispostion Disposition: HOME Condition at time of disposition: Improved Decision to Admit order: No - Referrals Referrals: [facility] [Primary Care Provider] - - Patient Instructions Printed Discharge Instructions: DI for Muscle Weakness Additional Instructions: You were seen today for dizziness in your head or head pressure or general weakness. Your EKG, chest xray, blood work, and urine tests were all normal. Your symptoms are likely because you did not sleep well last night. Follow up with your primary care doctor within the next 3-4 days. You will need to call to make an appointment. The number is included in this packet. A copy of todays results are attached to this packet. Take it to the appointment so your doctor can review them. Go to the nearest emergency department if your condition worsens or you feel like you need additional emergency evaluation. Print Language: UKRAINIAN - Post Discharge Activity
[2018-10-30 11:07] LABS: BASO % 0.7 % (0-2.0); EOS % 2.3 % (0-4.5); HEMATOCRIT 37.1 % (32.4-45.2); HEMOGLOBIN 12.1 GM/dL (10.7-15.3); LYMPH % 15.8 % (8-40); MCH 30.5 pg (25.7-33.7); MCHC 32.5 g/dl (32.0-36.0); MEAN CELL VOLUME 93.6 fl (80-96); MEAN PLT VOLUME 8.9 fl (7.5-11.1); MONO % 12.9 % (3.8-10.2); NEUT % 68.3 % (42.8-82.8); PLATELET COUNT 189 K/MM3 (134-434); RBC 3.97 M/mm3 (3.60-5.2); RDW 14.7 % (11.6-15.6); WHITE BLOOD COUNT 7.2 K/mm3 (4.0-10.0)
[2018-10-30 11:13] LABS: PH,URINE 6.5 (5.0-8.0); URINE APPEARANCE CLEAR; URINE BILIRUBIN NEGATIVE (NEGATIVE); URINE COLOR YELLOW; URINE GLUCOSE (UA) NEGATIVE (NEGATIVE); URINE KETONE NEGATIVE (NEGATIVE); URINE LEUK ESTERASE NEGATIVE (NEGATIVE); URINE NITRITE NEGATIVE (NEGATIVE); URINE PROTEIN NEGATIVE (NEGATIVE)
[2018-10-30 11:22] LABS: ALBUMIN 3.1 g/dl (3.4-5.0); ALK PHOS 98 U/L (45-117); ANION GAP 6 MMOL/L (8-16); BILIRUBIN,TOTAL 0.3 mg/dL (0.2-1); BLOOD UREA NITROGEN 13.4 mg/dL (7-18); CALCIUM 8.3 mg/dL (8.5-10.1); CHLORIDE 106 mmol/L (98-107); CO2 31 mmol/L (21-32); CREATININE 0.9 mg/dL (0.55-1.3); GLUCOSE,RANDOM 82 mg/dL (74-106); SGOT/AST 13 U/L (15-37); SGPT/ALT 15 U/L (13-61); SODIUM 143 mmol/L (136-145); TOT PROT 6.1 g/dl (6.4-8.2)
--- NOTE | 2018-10-31 10:39 | EKG ---
Test Reason : Blood Pressure : / mmHG Vent. Rate : 063 BPM Atrial Rate : 125 BPM P-R Int : 180 ms QRS Dur : 086 ms QT Int : 478 ms P-R-T Axes : 000 -17 -11 degrees QTc Int : 489 ms Atrial-paced rhythm LATERAL INFARCT , AGE UNDETERMINED ABNORMAL ECG WHEN COMPARED WITH ECG OF 26-JUN-2018 02:26, LATERAL INFARCT IS NOW PRESENT T WAVE VARIATION Confirmed by JESSICA NDIAYE, JESSICA ([id number]) on 10/31/2018 10:38:50 AM Referred By: Confirmed By:JESSICA LOPEZ MD
== END 2018-10-30 13:36 | disposition home or self-care (01) ==
LOC: JER 10:06
PROC: 3E0337Z Introduction of Electrolytic and Water Balance Substance into Peripheral Vein, Percutaneous Approach (ICD-10-PCS; principal; 2018-10-30)
DX: R53.1 Weakness (principal); R42 Dizziness and giddiness; I10 Essential (primary) hypertension; E78.5 Hyperlipidemia, unspecified; I48.91 Unspecified atrial fibrillation; Z79.01 Long term (current) use of anticoagulants; I34.1 Nonrheumatic mitral (valve) prolapse; I34.0 Nonrheumatic mitral (valve) insufficiency; D64.9 Anemia, unspecified; K21.9 Gastro-esophageal reflux disease without esophagitis; R41.9 Unspecified symptoms and signs involving cognitive functions and awareness; Z95.0 Presence of cardiac pacemaker
CPT/HCPCS: 36415; 71046-TC-FY; 80053; 81003; 84484; 85025; 87086; 93005; 93010; 99284-25

== ENCOUNTER 2019-01-26 16:33 | Inpatient (IN) | payer OTHER, BC ==
--- NOTE | 2019-01-26 17:06 | PDOC ---
History of Present Illness - General Stated Complaint: WEAKNESS Time Seen by Provider: 01/26/19 16:53 - History of Present Illness Initial Comments: 01/26/19 17:43 83y/o F hx of Afib with pacemaker and on eloquis, mitral valve regurgitation, anemia, HTN, HLD, memory disorder, AV node ablation and HIatal hernia, presenting today with 2 days of fatigue and weakness. She had a bleeding episode 2 weeks ago when she went to the bathroom. she is unable to remember if it was vaginal or anal bleeding She has been evaluated by GI and gynecology. GI did not find any hemorrhoids and results are pending from CT scans that were carried out. Her supervisor meter shop did not find any vaginal bleeding either. She denies any nausea, vomiting, fever, chills, headache, more bleeding episodes, dysuria, hematuria, shortness of breath or cough. Prompted to come to the ED today because she complained to her caregiver of chest pain. She denies any other symptoms of pain and can't remember what the pain felt like. 01/26/19 18:07 01/26/19 18:51 Past History - Past Medical History Allergies/Adverse Reactions: Allergies Allergy/AdvReac Type Severity Reaction Status Date / Time No Known Allergies Allergy Verified 10/30/18 10:12 Home Medications: Ambulatory Orders Diltiazem HCl [Cartia Xt] 240 mg PO DAILY 06/12/18 Esomeprazole Magnesium 40 mg PO DAILY 06/12/18 Fluoxetine HCl [Prozac] 20 mg PO DAILY 06/12/18 Sucralfate [Carafate -] 1 gm PO TID 06/12/18 Apixaban [Eliquis] 2.5 mg PO BID 10/30/18 Atorvastatin Ca [Lipitor] 10 mg PO HS 10/30/18 Donepezil HCl 10 mg PO DAILY 10/30/18 Memantine HCl 10 mg PO BID 10/30/18 Cyanocobalamin (Vitamin B-12) [Vitamin B12] 5,000 mcg PO DAILY 01/27/19 Iron 325 mg PO BID 01/27/19 Metoprolol Succinate 25 mg PO BID 01/27/19 Lisinopril [Prinivil] 2.5 mg PO DAILY #30 tablet 01/31/19 Furosemide [Lasix] 20 mg PO DAILY #15 tablet 02/01/19 Anemia: Yes Cardiac Disorders: Yes (A-fib, PACEMAKER) COPD: No Dementia: Yes GI Disorders: Yes (INDIGESTION, HIATAL HERNIA) HTN: Yes Hypercholesterolemia: Yes - Surgical History Cardiac Surgery: Yes (AV NODE ABLATION,pacemaker: [employer]- model # L331 Atrial lead # 7) - Immunization History Td Vaccination: Yes Immunization Up to Date: (UNKNOWN) - Psycho Social/Smoking Cessation Hx Smoking Status: No Smoking History: Former smoker Have you smoked in the past 12 months: No Number of Cigarettes Smoked Daily: 0 If you are a former smoker, when did you quit?: 30 YEARS AGO Hx Alcohol Use: No Drug/Substance Use Hx: No Substance Use Type: None Hx Substance Use Treatment: No Review of Systems - Review of Systems Constitutional: No: Chills, Fever HEENTM: No: Eye Pain, Blurred Vision Respiratory: No: Cough, Shortness of Breath Cardiac (ROS): Yes: Chest Pain ABD/GI: No: Diarrhea : No: Burning, Dysuria Integumentary: No: Bruising, Change in Color Neurological: No: Headache *Physical Exam - Physical Exam General Appearance: Yes: Nourished, Appropriately Dressed HEENT: positive: EOMI, Normal Voice Neck: positive: Supple. negative: Tender Respiratory/Chest: positive: Lungs Clear, Normal Breath Sounds. negative: Chest Tender, Respiratory Distress, Accessory Muscle Use Cardiovascular: positive: Regular Rhythm, Regular Rate, Murmur (systolic ). negative: Gallop/S4 Vascular Pulses: Dorsalis-Pedis (R): 2+, Doralis-Pedis (L): 2+ Gastrointestinal/Abdominal: positive: Normal Bowel Sounds, Tender, Soft, Tenderness Rectal Exam: positive: normal exam, normal rectal tone. negative: melena, hemorrhoids Musculoskeletal: positive: Normal Inspection. negative: CVA Tenderness Extremity: positive: Normal Capillary Refill, Normal Inspection, Normal Range of Motion. negative: Coldness, Delayed Capillary Refill Integumentary: positive: Normal Color, Dry, Warm Neurologic: positive: reptile keeper II-XII NML intact, Fully Oriented, Alert, Normal Mood/ Affect, Motor Strength 5/5, Responsive ED Treatment Course - LABORATORY CBC & Chemistry Diagram: 01/31/19 06:45 02/01/19 06:25 Medical Decision Making - Medical Decision Making 01/26/19 18:07 83y/o F hx of Afib with pacemaker and on eloquis, anemia, HTN, HLD, memory disorder, AV node ablation and Hiatal hernia, presenting today with 2 days of fatigue and weakness. ACS vs GI bleed ekg,cbc,cmp,type and screen pt/inr, troponin, stool for occult blood, CXR EKG:normal sinus rhythm, prolonged qt, T wave inversions. No ST elevations 01/26/19 18:30 Spoke with daughter Ms. Isa House, who confirms that pt is not the most reliable historian and at this point her official diagnosis is cognitive impairment. Contact information [phone] Stool occult blood negative Hgb/Hct- unremarkable signed out to night team Discharge - Discharge Information Clinical Impression/Diagnosis: Weakness, Elevated troponin - Admission Yes
[2019-01-26 18:35] LABS: BASO % 0.5 % (0-2.0); EOS % 0.2 % (0-4.5); HEMATOCRIT 37.1 % (32.4-45.2); HEMOGLOBIN 11.8 GM/dL (10.7-15.3); LYMPH % 13.9 % (8-40); MCH 30.1 pg (25.7-33.7); MCHC 31.8 g/dl (32.0-36.0); MEAN CELL VOLUME 94.7 fl (80-96); MEAN PLT VOLUME 10.3 fl (7.5-11.1); MONO % 11.3 % (3.8-10.2); NEUT % 74.1 % (42.8-82.8); PLATELET COUNT 228 K/MM3 (134-434); RBC 3.91 M/mm3 (3.60-5.2); RDW 14.3 % (11.6-15.6); WHITE BLOOD COUNT 11.4 K/mm3 (4.0-10.0)
[2019-01-26 18:56] LABS: INR 1.72 (0.83-1.09); PROTHROMBIN TIME (PATIENT) 20.4 SEC (9.7-13.0)
[2019-01-26 19:09] LABS: ALBUMIN 3.4 g/dl (3.4-5.0); BILIRUBIN,TOTAL 0.6 mg/dL (0.2-1); BLOOD UREA NITROGEN 24.9 mg/dL (7-18); CALCIUM 8.8 mg/dL (8.5-10.1); CREATININE 1.2 mg/dL (0.55-1.3); POTASSIUM 3.6 mmol/L (3.5-5.1); TOT PROT 6.7 g/dl (6.4-8.2)
--- NOTE | 2019-01-26 19:17 | PDOC ---
*Physical Exam - Vital Signs Last Vital Signs Temp Pulse Resp BP Pulse Ox 97.4 F L 74 16 134/76 98 01/26/19 16:59 01/26/19 16:59 01/26/19 16:59 01/26/19 16:59 01/26/19 17:02 ED Treatment Course - LABORATORY CBC & Chemistry Diagram: 01/27/19 07:10 01/27/19 07:10 - ADDITIONAL ORDERS Additional order review: Laboratory Results 01/26/19 01/26/19 01/26/19 18:06 18:06 18:00 PT with INR 20.40 H INR 1.72 H Sodium 138 Potassium 3.6 Chloride 102 Carbon Dioxide 27 Anion Gap 9 BUN 24.9 H Creatinine 1.2 Est GFR (CKD-EPI)AfAm 48.40 Est GFR (CKD-EPI)NonAf 41.76 Random Glucose 93 Calcium 8.8 Total Bilirubin 0.6 AST 104 H ALT 146 H Alkaline Phosphatase 141 H Troponin I 0.15 H Total Protein 6.7 Albumin 3.4 Stool Occult Blood Negative 01/26/19 18:06 RBC 3.91 MCV 94.7 MCHC 31.8 L RDW 14.3 MPV 10.3 D Neutrophils % 74.1 Lymphocytes % 13.9 Monocytes % 11.3 H Eosinophils % 0.2 D Basophils % 0.5 Medical Decision Making - Medical Decision Making Patient signed out by Dr. Heath 83y/o F hx of Afib with pacemaker and on eloquis, mitral valve regurgitation, anemia, HTN, HLD, memory disorder, AV node ablation and Hiatal hernia, presenting today with 2 days of fatigue and weakness. Pending CMP, CXR, and Tpn Plan for admission Dr. Nayely Albert is the PCP Dr. Yariel Bagley is the malt roaster 01/26/19 19:16 CMP Sodium 138 mmol/L (136-145) 01/26/19 18:06 Potassium 3.6 mmol/L (3.5-5.1) 01/26/19 18:06 Chloride 102 mmol/L (98-107) 01/26/19 18:06 Carbon Dioxide 27 mmol/L (21-32) 01/26/19 18:06 Anion Gap 9 MMOL/L (8-16) 01/26/19 18:06 BUN 24.9 mg/dL (7-18) H 01/26/19 18:06 Creatinine 1.2 mg/dL (0.55-1.3) 01/26/19 18:06 Est GFR (CKD-EPI)AfAm 48.40 01/26/19 18:06 Est GFR (CKD-EPI)NonAf 41.76 01/26/19 18:06 Random Glucose 93 mg/dL (74-106) 01/26/19 18:06 Calcium 8.8 mg/dL (8.5-10.1) 01/26/19 18:06 Total Bilirubin 0.6 mg/dL (0.2-1) 01/26/19 18:06 AST 104 U/L (15-37) H 01/26/19 18:06 ALT 146 U/L (13-61) H 01/26/19 18:06 Alkaline Phosphatase 141 U/L (45-117) H 01/26/19 18:06 Troponin I 0.15 ng/ml (0.00-0.05) H 01/26/19 18:06 Total Protein 6.7 g/dl (6.4-8.2) 01/26/19 18:06 Albumin 3.4 g/dl (3.4-5.0) 01/26/19 18:06 Electrolytes unremarkable Elevated Tpn, 0.15 Elevated liver enzymes CXR without acute pathology, my impression EKG: rate 69, QTc 501, NSR, flattened/twi in II, III, avF, V3 01/26/19 19:21 Updated patient's daughter, Isa Phan, over the phone. She can be reached at [phone] 01/26/19 19:[address] Vegas who accepted patient for admission under Dr. Pérez 01/26/19 19:55 Miss Phan's daughter called saying the GI workup that patient had recently showed elevated liver enzymes. The patient also had a negative ultrasound four days ago. 01/26/19 21:08 *DC/Admit/Observation/Transfer Diagnosis at time of Disposition: Weakness, Elevated troponin - Discharge Dispostion Condition at time of disposition: Guarded Decision to Admit order: Yes - Referrals - Patient Instructions - Post Discharge Activity
--- NOTE | 2019-01-26 19:19 | PDOC ---
Attending Attestation - Resident Resident Name: Hood Heath - HPI HPI: 01/26/19 19:14 pt presents to the ED after brought in by aides for generalized weakness and chest pain. Patient has cognitive impairment and is unable to give complete history. - Physicial Exam PE: 01/26/19 19:14 Agree with resident exam. Patient is alert and well appearing and in no acute distress. + systolic murmur. Abdomen soft, non tender, non distended. Lungs are clear. - Medical Decision Making 01/26/19 19:17 Pt presents to the ED complaining of chest pain. Will check labs and EKG and admit to medicine for r/o ACS.
--- NOTE | 2019-01-26 21:47 | HP ---
CHIEF COMPLAINT: Chest pain for the past 1 day and generalized weakness for the past 2 days PCP: Nayely Vernon HISTORY OF PRESENT ILLNESS: This is an 83 year old female with PMH significant for AFib, MVR, dementia, HTN , Anemia, and HLD. She presented to the ER with complaints of chest pain for the past 1 day and generalized weakness for the past 2 days. The chest pain was substernal, sudden in onset, began in the afternoon, rated 3/10 in intensity, and non-radiating. She does not remember the quality of the pain, or whether it was exertional vs non-exertional, or episodic vs continuous (patient has dementia). At the time of examination she was pain free, and she does not remember much about the chest pain or when it subsided. She is not sure whether she has had this kind of pain before, but claims that she hasn't had any cardiac procedures in the past. She endorses some bleeding that was both anal and vaginal in origin a few days ago, but does not remember the quality or quantity of the blood. She also does not remember if it was after a bowel movement, during wiping, or whether ot not she had any workup done afterwards. She has no associated complaints of SOB, palpitations, dizziness, vomiting, diarrhea, constipation, dysuria, hematuria, or increased urinary frequency. She does not remember when she last had a bowel movement. She states that she saw her Geriatric Nursing Assistant yesterday because for generalized weakness, and had a blood test done. She lives with her and a digital technician aide, and she ambulates without assistance. She states that she has not had any recent illnesses, and does not know if she has had any changes in her medication. ER course was notable for: (1) Trop 0.15 (2) EKG TWI III, aVF, V3 (3) FOBT neg Recent Travel: None PAST MEDICAL HISTORY: AFib, MVR, dementia, ... 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 Social History: Smoking: Quit 30 years ago, smoked 2 ppd for 30 years before that Alcohol: few drinks/year Drugs: denies Allergies No Known Allergies Allergy (Verified 10/30/18 10:12) HOME MEDICATIONS: Home Medications Medication Instructions Recorded Diltiazem HCl [Cartia Xt] 120 mg PO DAILY 06/12/18 Esomeprazole Magnesium 40 mg PO DAILY 06/12/18 Fluoxetine HCl [Prozac] 20 mg PO DAILY 06/12/18 Sucralfate [Carafate -] 1 gm PO TID 06/12/18 Apixaban [Eliquis] 2.5 mg PO BID 10/30/18 Atorvastatin Ca [Lipitor] 10 mg PO HS 10/30/18 Donepezil HCl 10 mg PO DAILY 10/30/18 Memantine HCl 10 mg PO BID 10/30/18 REVIEW OF SYSTEMS CONSTITUTIONAL: generalized weakness Absent: fever, chills, diaphoresis, generalized weakness, malaise, loss of appetite, weight change HEENT: Absent: rhinorrhea, nasal congestion, throat pain, throat swelling, difficulty swallowing, mouth swelling, ear pain, eye pain, visual changes CARDIOVASCULAR: chest pain Absent: chest pain, syncope, palpitations, irregular heart rate, lightheadedness , peripheral edema RESPIRATORY: Absent: cough, shortness of breath, dyspnea with exertion, orthopnea, wheezing, stridor, hemoptysis GASTROINTESTINAL: Absent: abdominal pain, abdominal distension, nausea, vomiting, diarrhea, constipation, melena, hematochezia GENITOURINARY: Absent: dysuria, frequency, urgency, hesitancy, hematuria, flank pain, genital pain MUSCULOSKELETAL: Absent: myalgia, arthralgia, joint swelling, back pain, neck pain SKIN: Absent: rash, itching, pallor HEMATOLOGIC/IMMUNOLOGIC: Absent: easy bleeding, easy bruising, lymphadenopathy, frequent infections ENDOCRINE: Absent: unexplained weight gain, unexplained weight loss, heat intolerance, cold intolerance NEUROLOGIC: Absent: headache, focal weakness or paresthesias, dizziness, unsteady gait, seizure, mental status changes, bladder or bowel incontinence PSYCHIATRIC: Absent: anxiety, depression, suicidal or homicidal ideation, hallucinations. PHYSICAL EXAMINATION Vital Signs - 24 hr 01/26/19 01/26/19 16:59 17:02 Temperature 97.4 F L Pulse Rate 74 Respiratory 16 Rate Blood Pressure 134/76 O2 Sat by Pulse 98 98 Oximetry (%) GENERAL: AOx2, pleasant and cooperative HEAD: Normal with no signs of trauma. EYES: Pupils equal, round and reactive to light, extraocular movements intact, sclera anicteric, conjunctiva clear. No lid lag. EARS, NOSE, THROAT: Ears normal, nares patent, oropharynx clear without exudates. Moist mucous membranes. NECK: Normal range of motion, supple without lymphadenopathy, JVD, or masses. LUNGS: Breath sounds equal, clear to auscultation bilaterally. No wheezes, and no crackles. No accessory muscle use. HEART: systolic murmur 3/6, RRR ABDOMEN: Soft, nontender, not distended, normoactive bowel sounds, no guarding, no rebound, no masses. No hepatomegaly or splenomegaly. MUSCULOSKELETAL: Normal range of motion at all joints. No bony deformities or tenderness. No CVA tenderness. UPPER EXTREMITIES: 2+ pulses, warm, well-perfused. No cyanosis. No clubbing. No peripheral edema. LOWER EXTREMITIES: 2+ pulses, warm, well-perfused. No calf tenderness. No peripheral edema. NEUROLOGICAL: Cranial nerves II-XII intact. Normal speech PSYCHIATRIC: Cooperative. Good eye contact. Appropriate mood and affect. SKIN: Warm, dry, normal turgor, no rashes or lesions noted, normal capillary refill. Laboratory Results - last 24 hr 01/26/19 01/26/19 01/26/19 18:00 18:06 18:06 WBC 11.4 H RBC 3.91 Hgb 11.8 Hct 37.1 MCV 94.7 MCH 30.1 MCHC 31.8 L RDW 14.3 Plt Count 228 D MPV 10.3 D Absolute Neuts (auto) 8.5 H Neutrophils % 74.1 Lymphocytes % 13.9 Monocytes % 11.3 H Eosinophils % 0.2 D Basophils % 0.5 Nucleated RBC % 0 PT with INR INR Sodium 138 Potassium 3.6 Chloride 102 Carbon Dioxide 27 Anion Gap 9 BUN 24.9 H Creatinine 1.2 Est GFR (CKD-EPI)AfAm 48.40 Est GFR (CKD-EPI)NonAf 41.76 Random Glucose 93 Calcium 8.8 Total Bilirubin 0.6 AST 104 H ALT 146 H Alkaline Phosphatase 141 H Troponin I 0.15 H Total Protein 6.7 Albumin 3.4 Stool Occult Blood Negative Blood Type Antibody Screen 01/26/19 01/26/19 18:06 18:12 WBC RBC Hgb Hct MCV MCH MCHC RDW Plt Count MPV Absolute Neuts (auto) Neutrophils % Lymphocytes % Monocytes % Eosinophils % Basophils % Nucleated RBC % PT with INR 20.40 H INR 1.72 H Sodium Potassium Chloride Carbon Dioxide Anion Gap BUN Creatinine Est GFR (CKD-EPI)AfAm Est GFR (CKD-EPI)NonAf Random Glucose Calcium Total Bilirubin AST ALT Alkaline Phosphatase Troponin I Total Protein Albumin Stool Occult Blood Blood Type O POSITIVE Antibody Screen Negative ASSESSMENT/PLAN: This is an 83 year old female with PMH significant for AFib, MVR, dementia, HTN , Anemia, and HLD. She presented to the ER with complaints of chest pain for the past 1 day and generalized weakness for the past 2 days. #Chest pain - r/o ACS - Trop 0.15 x3, consider dual antiplatelet therapy and heparin drip if Trops rise - EKG TWI III, aVF, V3 - ASA 162mg administered - Lipitor 40mg administered - NTG PRN for pain administered - Echo ordered - Cardiac consult palced (Dr. Mcadams) #Hx of bleeding - Has had outpatient GI and OB F/U as per chart review (patient does not remember) - Protonix 40mg ordered - FOBT negative - H&H 11.8/37.1 #Hx of AFib - Continue Eliquis 2.5mg #Transaminitis - AST 104, ALT 146, ALP 141 - RUQ US ordered - Tylenol, alcohol levels ordered - Avoid hepatotoxins #FEN - N/S @ 75 - Mg. Phos ordered - Na restricted diet #DVT PE - On Eliquis (home med) #Code Status - Full Code Visit type - Emergency Visit Emergency Visit: Yes ED Registration Date: 01/26/19 Care time: The patient presented to the Emergency Department on the above date and was hospitalized for further evaluation of their emergent condition. - New Patient This patient is new to me today: Yes Date on this admission: 01/27/19 - Critical Care Critical Care patient: No ATTENDING PHYSICIAN STATEMENT I saw and evaluated the patient. I reviewed the resident's note and discussed the case with the resident. I agree with the resident's findings and plan as documented. SUBJECTIVE: OBJECTIVE: ASSESSMENT AND PLAN:
[2019-01-26 22:10] LABS: EPI CELLS 2.6 /HPF (0-5/HPF); HYALINE CASTS 46 /lpf (0-8); URINE APPEARANCE CLOUDY; URINE BACTERIA 69.8 /hpf (NEGATIVE); URINE BILIRUBIN NEGATIVE (NEGATIVE); URINE COLOR DK YELLOW; URINE GLUCOSE (UA) NEGATIVE (NEGATIVE); URINE KETONE TRACE (NEGATIVE); URINE LEUK ESTERASE 2+ (NEGATIVE); URINE NITRITE NEGATIVE (NEGATIVE); URINE PROTEIN 1+ (NEGATIVE); URINE RBC 7 /hpf (0-4); URINE WBC 49 /hpf (0-5)
[2019-01-26] MEDS ORDERED: ASPIRIN 81 MG CHEWABLE TABLETS PO ONE (22:19)
[2019-01-26] MEDS ORDERED: ASPIRIN 81 MG CHEWABLE TABLETS ONE (22:42)
--- NOTE | 2019-01-27 01:03 | PN ---
Teaching Attending Note Name of Resident: Will Finley ATTENDING PHYSICIAN STATEMENT I saw and evaluated the patient. I reviewed the resident's note and discussed the case with the resident. I agree with the resident's findings and plan as documented. SUBJECTIVE: 83yo woman with anemia, GERD, dementia, MVP, afib w/ PPM on eliquis, h/o GI bleed, remote SVT ablation, presents complaining of prior chest pain. She is unable to provide any details regarding her chest pain. Does not remember when it started or how long it lasted. Denied shortness of breath. Denied any pain when I saw her. OBJECTIVE: Last Vital Signs Temp Pulse Resp BP Pulse Ox 97.4 F L 74 16 134/76 98 01/26/19 16:59 01/26/19 16:59 01/26/19 16:59 01/26/19 16:59 01/26/19 17:02 gen- elderly frail lady heent- no trauma, moist mucous membranes neck supple cv-s1+[id number]+rrr, systolic murmur chest clear abd-soft, bs+ nt Abnormal Lab Results 01/26/19 01/26/19 01/26/19 18:06 18:06 18:06 WBC 11.4 H MCHC 31.8 L Absolute Neuts (auto) 8.5 H Monocytes % 11.3 H PT with INR 20.40 H INR 1.72 H BUN 24.9 H AST 104 H ALT 146 H Alkaline Phosphatase 141 H Troponin I 0.15 H Ur Specific [place] Urine Protein Urine Ketones Ur Leukocyte Esterase 01/26/19 21:45 WBC MCHC Absolute Neuts (auto) Monocytes % PT with INR INR BUN AST ALT Alkaline Phosphatase Troponin I Ur Specific [place] 1.040 H Urine Protein 1+ H Urine Ketones Trace H Ur Leukocyte Esterase 2+ H ekg - no significant change from prior cxr reviewed ASSESSMENT AND PLAN: #Chest pain - elevated trop, now asymptomatic. Possible NSTEMI. If subsequent trop is rising will upgrade to telemetry and treat for NSTEMI. Differential diagnosis includes GERD as well. -tele obs -trend trops -NGL sublingual PRN -if rising trop, treat for NSTEMI- dual antiplatelet therapy, heparin drip -echo -cardiac consult -monitor vital signs closely -statin -protonix #Leukocytosis -monitor for now, no infections identified #Transaminitis - cholestatic pattern, r/o cholestatisis, cholelithiasis -liver u/s -tylenol, etoh levels -trend hepatic panel -avoid hepatotoxins #Paroxysmal afib - c/w eliquis #advanced directives -pt is full code
[2019-01-27] MEDS ORDERED: NITROGLYCERIN SUBLINGUAL 1/150 0.4 MG TAB SL PRN (05:59)
[2019-01-27] MEDS ORDERED: MAGNESIUM OXIDE 400 MG TABLET (FP) ONE (06:41)
[2019-01-27] MEDS ORDERED: ACETAMINOPHEN 325 MG TABLET (FP) ONE (06:41)
[2019-01-27] MEDS ORDERED: SODIUM CHLORIDE 1,000 ML IV SCH (07:45)
[2019-01-27 07:50] LABS: HEMATOCRIT 35.8 % (32.4-45.2); HEMOGLOBIN 11.4 GM/dL (10.7-15.3); MCH 30.9 pg (25.7-33.7); MCHC 31.9 g/dl (32.0-36.0); MEAN CELL VOLUME 96.8 fl (80-96); MEAN PLT VOLUME 11.5 fl (7.5-11.1); PLATELET COUNT 194 K/MM3 (134-434); RDW 14.5 % (11.6-15.6); WHITE BLOOD COUNT 9.5 K/mm3 (4.0-10.0)
[2019-01-27 08:06] LABS: ALBUMIN 3.1 g/dl (3.4-5.0); BILIRUBIN,TOTAL 0.7 mg/dL (0.2-1); BLOOD UREA NITROGEN 28.8 mg/dL (7-18); CALCIUM 8.5 mg/dL (8.5-10.1); CREATININE 1.2 mg/dL (0.55-1.3); MAGNESIUM 2.1 mg/dL (1.8-2.4); PHOSPHOROUS 4.1 mg/dL (2.5-4.9); POTASSIUM 3.7 mmol/L (3.5-5.1); TOT PROT 6.3 g/dl (6.4-8.2)
--- NOTE | 2019-01-27 09:02 | CON.CARD ---
Consult Consult Specialty:: Cardiology Referred by:: Dr. Velez Reason for Consultation:: Equivoval TnI - History of Present Illness Chief Complaint: Weakness History of Present Illness: 83F admitted for weakness. Hx obtained from daughter Isa Phan. Pt has cognitive dysfx and cannot provide cohesive history. PMH: 1. 3 year hx cognitive dysfx, sees Neuro; per daughter worsening cognitive decline over last few months 2. Recurrent UTIs; recent spotting of blood in urine/underpants 3. Mitral regurg, worsening 4. AF s/p PPM Pt. states she has felt tired and SOB and has had "intestinal pain" for a week. Denies CP. Denies palps. No syncope. Saw Urologist who was not sure she has true hematuria and wanted her to see a GI MD because he found that she was soiled in dry diarrhea. GI found her to be fine, LFTs were elevated. Had CT Abdomen WED, results pending. Yesterday, she pressed her LIFE ALERT button and told ER she had chest pain. This has happened several times previously per daughter. Per daughter, these previous episodes were no AF or cardiac in origin. 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), Other (AV Node Ablation) Pulmonary: No: Asthma, Bronchitis, Cancer, COPD, O2 Dependent, Pneumonia, Previously Intubated, Pulmonary Embolus, Pulmonary Fibrosis, Sleep Apnea, Other Renal/: Yes: UTI Reproductive: No: Ectopic , Endometriosis, Fibroids, PID, Polycystic Ovary Syndrome, Postmenopausal, Other Heme/Onc: No: Anemia, B12 Deficiency, Bleeding Disorder, Cancer, Current Chemotherapy, Current Radiation Therapy, Hemochromatosis, Hypercoaguable State, Myeloproliferative Synd, Sickle Cell Disease, Sickle Cell Trait, Thrombocytopenia, Other Infectious Disease: Yes: Other (UTIS) Psych: No: Addictions, Anxiety, Bipolar, Depression, Panic, Psychosis, Schizophrenia, Other Musculoskeletal: No: Bursitis, Chronic low back pain, Hemiparesis, Hemiplegia, Osteoarthritis, Paraplegia, Other Rheumatology: No: Fibromyalgia, Gout, Lupus, Rheumatoid Arthritis, Sarcoidosis, Vasculitis, Other ENT: No: Allergic Rhinitis, Sinusitis, Other Endocrine: No: Serafin's Disease, Stanley's Disease, Diabetes Insipidus, Diabetes Mellitus, Hyperparathyroidism, Hyperthyroidism, Hypothyroidism, Osteopenia, SIADH, Other - Past Surgical History Past Surgical History: Yes: Permanent Pacemaker - Alcohol/Substance Use Hx Alcohol Use: No - Smoking History Smoking history: Former smoker Have you smoked in the past 12 months: No Aproximately how many cigarettes per day: 0 If you are a former smoker, when did you quit?: 30 YEARS AGO - Social History Usual Living Arrangement: Alone ADL: Independent History of Recent Travel: No Home Medications - Allergies Allergies/Adverse Reactions: Allergies Allergy/AdvReac Type Severity Reaction Status Date / Time No Known Allergies Allergy Verified 10/30/18 10:12 - Home Medications Home Medications: Ambulatory Orders Diltiazem HCl [Cartia Xt] 120 mg PO DAILY 06/12/18 Esomeprazole Magnesium 40 mg PO DAILY 06/12/18 Fluoxetine HCl [Prozac] 20 mg PO DAILY 06/12/18 Sucralfate [Carafate -] 1 gm PO TID 06/12/18 Apixaban [Eliquis] 2.5 mg PO BID 10/30/18 Atorvastatin Ca [Lipitor] 10 mg PO HS 10/30/18 Donepezil HCl 10 mg PO DAILY 10/30/18 Memantine HCl 10 mg PO BID 10/30/18 Family Medical History Family History: Unremarkable Review of Systems - Review of Systems Constitutional: reports: No Symptoms Eyes: reports: No Symptoms HENT: reports: No Symptoms Cardiovascular: reports: Shortness of Breath Respiratory: reports: Exercise Intolerance Gastrointestinal: reports: Abdominal Pain Genitourinary: reports: Dysuria, Urgency Musculoskeletal: reports: No Symptoms Integumentary: reports: No Symptoms Neurological: reports: Confusion, Unsteady Gait, Weakness Endocrine: denies: No Symptoms, Excessive Sweating, Flushing, Increased Hunger, Increased Thirst, Intolerance to Cold, Intolerance to Heat, Unexplained Weight Gain, Unexplained Weight Loss, Other Hematology/Lymphatic: denies: No Symptoms, Easily Bruised, Excessive Bleeding, Swollen Glands, Other Psychiatric: denies: No Symptoms, Altered Sleep Pattern, Anxiety, Depression, Hallucinations, Panic, Paranoia, Suicidal, Other - Risk Factors Known Risk Factors: Yes: Hypercholesterolemia, Physical Inactivity, Smoking Vital Signs: Vital Signs Temperature 97.8 F 01/27/19 06:57 Pulse Rate 66 01/27/19 06:57 Respiratory Rate 18 01/27/19 06:57 Blood Pressure 118/75 01/27/19 06:57 O2 Sat by Pulse Oximetry (%) 95 01/27/19 06:57 Constitutional: Yes: Anxious Eyes: Yes: Conjunctiva Clear HENT: Yes: Atraumatic, Normocephalic Neck: Yes: Trachea Midline Respiratory: Yes: Other (slight decreased breath sounds at bases) Gastrointestinal: Yes: Other (NO rebound or guarding but + tenderness RLQ on deept palpation) Renal/: Yes: WNL Cardiovascular: Yes: Regular Rate and Rhythm JVD: No Carotid Bruit: No Murmur: Yes: Systolic Murmur, Grade 3 (apex) Edema: No Peripheral Pulses WNL: Yes Neurological: Yes: Alert, Oriented - Other Data Labs, Other Data: CBC, BMP 01/27/19 07:10 01/27/19 07:10 INR, PTT INR 1.72 (0.83-1.09) H 01/26/19 18:06 Troponin, BNP 01/26/19 01/27/19 01/27/19 18:06 01:00 01:00 Troponin I 0.15 H 0.15 H 0.15 H 01/27/19 07:10 Troponin I 0.12 H Troponin, BNP 01/26/19 01/27/19 01/27/19 18:06 01:00 01:00 Troponin I 0.15 H 0.15 H 0.15 H 01/27/19 07:10 Troponin I 0.12 H Laboratory Tests 01/26/19 01/26/19 01/26/19 18:00 18:06 18:06 WBC 11.4 H Hgb 11.8 Plt Count 228 D INR Sodium Potassium BUN Creatinine Random Glucose Calcium Phosphorus Magnesium Total Bilirubin AST 104 H ALT 146 H Alkaline Phosphatase 141 H Creatine Kinase Troponin I 0.15 H Albumin Ur Specific [place] Urine Protein Urine Ketones Ur Leukocyte Esterase Urine WBC (Auto) Stool Occult Blood Negative Acetaminophen Alcohol, Quantitative Hep A IgM Ab Confirm Hep Bs Antigen Hepatitis C Ab (EIA) 01/26/19 01/26/19 01/27/19 18:06 21:45 01:00 WBC Hgb Plt Count INR 1.72 H Sodium Potassium BUN Creatinine Random Glucose Calcium Phosphorus Magnesium Total Bilirubin AST ALT Alkaline Phosphatase Creatine Kinase Troponin I 0.15 H Albumin Ur Specific [place] 1.040 H Urine Protein 1+ H Urine Ketones Trace H Ur Leukocyte Esterase 2+ H Urine WBC (Auto) 49 Stool Occult Blood Acetaminophen Alcohol, Quantitative Hep A IgM Ab Confirm Hep Bs Antigen Hepatitis C Ab (EIA) 01/27/19 01/27/19 01/27/19 01:00 01:00 01:00 WBC Hgb Plt Count INR Sodium Potassium BUN Creatinine Random Glucose Calcium Phosphorus Magnesium Total Bilirubin AST ALT Alkaline Phosphatase Creatine Kinase 77 Troponin I 0.15 H Albumin Ur Specific [place] Urine Protein Urine Ketones Ur Leukocyte Esterase Urine WBC (Auto) Stool Occult Blood Acetaminophen <10. Alcohol, Quantitative < 3.0 Hep A IgM Ab Confirm Hep Bs Antigen Hepatitis C Ab (EIA) 01/27/19 01/27/19 01/27/19 07:10 07:10 07:10 WBC 9.5 Hgb 11.4 Plt Count 194 INR Sodium 140 Potassium 3.7 BUN 28.8 H Creatinine 1.2 Random Glucose 108 H Calcium 8.5 Phosphorus 4.1 Magnesium 2.1 Total Bilirubin 0.7 AST 83 H ALT 132 H Alkaline Phosphatase Creatine Kinase 75 Troponin I 0.12 H Albumin 3.1 L Ur Specific [place] Urine Protein Urine Ketones Ur Leukocyte Esterase Urine WBC (Auto) Stool Occult Blood Acetaminophen Alcohol, Quantitative Hep A IgM Ab Confirm Pending Hep Bs Antigen Pending Hepatitis C Ab (EIA) Pending NSR TWI III, mildly prolonged QT Echo: Pending Imaging - Results Cat Scan: Pending EKG: Image Reviewed Assessment/Plan IMP: 1. Chronic cognitive dysfx/progressive dementia followed by Neuro 2. Recent frequent UTIs 3. PAF s/p PPM 4. Chronic mitral regurgitation, worsening as per daughter 5. Transaminitis 6. Generalized weakness, possible recurrent UTI triggering worsening of chronic cognitive dysfx 7. Equivocal TnIs REC: 1. Obtaining old records including recent Abd CT/US and labs from daughter and call out to her [facility] Manager Dr. Cam 2. Echo 3. Would obtain cultures blood/urine and consider empiric Rx UTI 4. Resume Eliquis adjusted for weight/age 5. Check CK MB 6. Long d/w daughter. Even if this evolves clinically into more clearly NSTEMI, would treat conservatively. She has chronic dementia, poor fxal status and family does not want invasive measures at this time.
[2019-01-27] MEDS ORDERED: PANTOPRAZOLE 40 MG TABLET (FP) ONE (10:06)
[2019-01-27] MEDS: ASPIRIN 81 MG CHEWABLE TABLETS PO SCH (10:48)
[2019-01-27] MEDS: PANTOPRAZOLE 20 MG TABLET (FP) PO SCH (10:48)
[2019-01-27] MEDS ORDERED: CEFTRIAXONE 2 GM in DEXTROSE 5%-WATER - 50 ML IVPB ONE (11:15)
[2019-01-27] MEDS ORDERED: APIXABAN 5 MG TABLET PO ONE (12:30)
[2019-01-27] MEDS ORDERED: CEFTRIAXONE 2 GM/100 ML BAG IVPB ONE (12:31)
--- NOTE | 2019-01-27 12:37 | PN ---
Teaching Attending Note Name of Resident: Jose Alex ATTENDING PHYSICIAN STATEMENT I saw and evaluated the patient. I reviewed the resident's note and discussed the case with the resident. I agree with the resident's findings and plan as documented. Seen and examined; no new complaints. Resident team spoke with her private Gi physician. She has worsening cognative function over the past several months with recurring UTIs (saw outside urology) and chronic transaminitis. She has known MR. Troponemia flat. Has AF s/p PPM. Pending outside diagnostics. 10 sys ROS done and negative aside from HPI PMH, PSH, FH, SH reviewed VS, labs, imaging reviewed NAD, AAO, resting in bed NC AT EOMI PERRLA RRR s1/2 no mgr Lungs CTAB, w/ sym exp Mild tenderness with mild distention; no localizations. EKG reviwed Prior diagnostics reviewed ASSESSMENT AND PLAN: Patient presents with multiple issues; she has troponemia and CV following to r/ o true NSTEMI. Per their note, they would elect to treat electively due to the surrounding comorbid conditions and her overall clinical picture. Continue to trend. We will emprically treat UTI and followup culture results and tailor abx accordingly. She hasn't seen ID for recurring UTIs so will consult their service for further recs. Obtaining old diagnostics. Spoke with her GI as an outpatient and apparently this is chronic with the transaminitis. Will continue to trend, US results reviewed and acutely unremarkable. Problems include: -Troponemia r/o NSTEMI (on ASA and statin, continue tele. Followup echo, CKMB ordered by CV. Appreciate CV guidance in the management of this complex patient ) -Hx MR (Followup on echo, obtain OP records from cardiology) -AF s/p PPM (Continue to monitor on telemetry) -Dementia (Goals of care discussion) -Transaminitis (known; obtain OP records and compare. She will need close followup with her OP GI) -Acute cystitis with hx chronic UTIs (IV ceftriaxone, obtain OP cultures and consult ID given the recurring nature of her issues). Full Code
[2019-01-27] MEDS: APIXABAN 2.5 MG TABLET PO SCH ×2 (12:46→21:38)
--- NOTE | 2019-01-27 14:20 | EKG ---
Test Reason : Blood Pressure : / mmHG Vent. Rate : 065 BPM Atrial Rate : 065 BPM P-R Int : 134 ms QRS Dur : 084 ms QT Int : 478 ms P-R-T Axes : 045 050 -22 degrees QTc Int : 497 ms Atrial-paced rhythm VOLTAGE CRITERIA FOR LEFT VENTRICULAR HYPERTROPHY NONSPECIFIC ST AND T WAVE ABNORMALITY PROLONGED QT ABNORMAL ECG WHEN COMPARED WITH ECG OF 26-JAN-2019 18:27, NO SIGNIFICANT CHANGE WAS FOUND Confirmed by YOLY RAMSEY MD ([id number]) on 01/27/2019 2:20:29 PM Referred By: Confirmed By:YOLY RAMSEY MD
--- NOTE | 2019-01-27 14:33 | EKG ---
Test Reason : Blood Pressure : / mmHG Vent. Rate : 069 BPM Atrial Rate : 069 BPM P-R Int : 130 ms QRS Dur : 088 ms QT Int : 468 ms P-R-T Axes : 044 036 -09 degrees QTc Int : 501 ms NORMAL SINUS RHYTHM PROLONGED QT ABNORMAL ECG WHEN COMPARED WITH ECG OF 10/30/18, T wave variation slightly more prominent in V3 Confirmed by YOLY RAMSEY MD ([id number]) on 01/27/2019 2:33:30 PM Referred By: Confirmed By:YOLY RAMSEY MD
--- NOTE | 2019-01-27 15:00 | PN ---
Physical Exam: SUBJECTIVE: Patient seen and examined at bedside. Complains of diffuse abdominal pain OBJECTIVE: Vital Signs Period Temp Pulse Resp BP Sys/Rice Pulse Ox Last 24 Hr 97.4 F-97.8 F 65-74 16-20 101-134/59-79 95-100 GEN: aaoX2, NAD HEENT: NCAT, EOMI Neck: supple, no jvd Cardio: rrr, normal s1s2, no mrg Pulm: cta b/l Abd: LUQ ttp, normal bs, nondistended Laboratory Results - last 24 hr 01/26/19 01/26/19 01/26/19 18:00 18:06 18:06 WBC 11.4 H RBC 3.91 Hgb 11.8 Hct 37.1 MCV 94.7 MCH 30.1 MCHC 31.8 L RDW 14.3 Plt Count 228 D MPV 10.3 D Absolute Neuts (auto) 8.5 H Neutrophils % 74.1 Lymphocytes % 13.9 Monocytes % 11.3 H Eosinophils % 0.2 D Basophils % 0.5 Nucleated RBC % 0 PT with INR INR Sodium 138 Potassium 3.6 Chloride 102 Carbon Dioxide 27 Anion Gap 9 BUN 24.9 H Creatinine 1.2 Est GFR (CKD-EPI)AfAm 48.40 Est GFR (CKD-EPI)NonAf 41.76 Random Glucose 93 Calcium 8.8 Phosphorus Magnesium Total Bilirubin 0.6 AST 104 H ALT 146 H Alkaline Phosphatase 141 H Creatine Kinase Troponin I 0.15 H Total Protein 6.7 Albumin 3.4 Urine Color Urine Appearance Urine pH Ur Specific [place] Urine Protein Urine Glucose (UA) Urine Ketones Urine Blood Urine Nitrite Urine Bilirubin Urine Urobilinogen Ur Leukocyte Esterase Urine WBC (Auto) Urine RBC (Auto) Urine Casts (Auto) U Pathogenic Cast Auto U Epithel Cells (Auto) Urine Bacteria (Auto) Stool Occult Blood Negative Acetaminophen Alcohol, Quantitative Blood Type Antibody Screen 01/26/19 01/26/19 01/26/19 18:06 18:12 21:45 WBC RBC Hgb Hct MCV MCH MCHC RDW Plt Count MPV Absolute Neuts (auto) Neutrophils % Lymphocytes % Monocytes % Eosinophils % Basophils % Nucleated RBC % PT with INR 20.40 H INR 1.72 H Sodium Potassium Chloride Carbon Dioxide Anion Gap BUN Creatinine Est GFR (CKD-EPI)AfAm Est GFR (CKD-EPI)NonAf Random Glucose Calcium Phosphorus Magnesium Total Bilirubin AST ALT Alkaline Phosphatase Creatine Kinase Troponin I Total Protein Albumin Urine Color Dk yellow Urine Appearance Cloudy Urine pH 6.0 Ur Specific [place] 1.040 H Urine Protein 1+ H Urine Glucose (UA) Negative Urine Ketones Trace H Urine Blood Negative Urine Nitrite Negative Urine Bilirubin Negative Urine Urobilinogen 1.0 Ur Leukocyte Esterase 2+ H Urine WBC (Auto) 49 Urine RBC (Auto) 7 Urine Casts (Auto) 46 U Pathogenic Cast Auto None seen U Epithel Cells (Auto) 2.6 Urine Bacteria (Auto) 69.8 Stool Occult Blood Acetaminophen Alcohol, Quantitative Blood Type O POSITIVE Antibody Screen Negative 01/27/19 01/27/19 01/27/19 01:00 01:00 01:00 WBC RBC Hgb Hct MCV MCH MCHC RDW Plt Count MPV Absolute Neuts (auto) Neutrophils % Lymphocytes % Monocytes % Eosinophils % Basophils % Nucleated RBC % PT with INR INR Sodium Potassium Chloride Carbon Dioxide Anion Gap BUN Creatinine Est GFR (CKD-EPI)AfAm Est GFR (CKD-EPI)NonAf Random Glucose Calcium Phosphorus Magnesium Total Bilirubin AST ALT Alkaline Phosphatase Creatine Kinase Troponin I 0.15 H Total Protein Albumin Urine Color Urine Appearance Urine pH Ur Specific [place] Urine Protein Urine Glucose (UA) Urine Ketones Urine Blood Urine Nitrite Urine Bilirubin Urine Urobilinogen Ur Leukocyte Esterase Urine WBC (Auto) Urine RBC (Auto) Urine Casts (Auto) U Pathogenic Cast Auto U Epithel Cells (Auto) Urine Bacteria (Auto) Stool Occult Blood Acetaminophen <10. Alcohol, Quantitative < 3.0 Blood Type Antibody Screen 01/27/19 01/27/19 01/27/19 01:00 07:10 07:10 WBC 9.5 RBC 3.70 Hgb 11.4 Hct 35.8 MCV 96.8 H MCH 30.9 MCHC 31.9 L RDW 14.5 Plt Count 194 MPV 11.5 H D Absolute Neuts (auto) Neutrophils % Lymphocytes % Monocytes % Eosinophils % Basophils % Nucleated RBC % PT with INR INR Sodium 140 Potassium 3.7 Chloride 104 Carbon Dioxide 25 Anion Gap 11 BUN 28.8 H Creatinine 1.2 Est GFR (CKD-EPI)AfAm 48.40 Est GFR (CKD-EPI)NonAf 41.76 Random Glucose 108 H Calcium 8.5 Phosphorus 4.1 Magnesium 2.1 Total Bilirubin 0.7 AST 83 H ALT 132 H Alkaline Phosphatase 132 H Creatine Kinase 77 75 Troponin I 0.15 H 0.12 H Total Protein 6.3 L Albumin 3.1 L Urine Color Urine Appearance Urine pH Ur Specific [place] Urine Protein Urine Glucose (UA) Urine Ketones Urine Blood Urine Nitrite Urine Bilirubin Urine Urobilinogen Ur Leukocyte Esterase Urine WBC (Auto) Urine RBC (Auto) Urine Casts (Auto) U Pathogenic Cast Auto U Epithel Cells (Auto) Urine Bacteria (Auto) Stool Occult Blood Acetaminophen Alcohol, Quantitative Blood Type Antibody Screen Active Medications Generic Name Dose Route Start Last Admin Trade Name Freq PRN Reason Stop Dose Admin Apixaban 2.5 mg 01/27/19 12:30 01/27/19 12:46 Eliquis - PO 2.5 mg BID PETTY Administration Aspirin 81 mg 01/27/19 10:00 01/27/19 10:48 Asa - PO 81 mg DAILY PETTY Administration Atorvastatin Calcium 10 mg 01/27/19 22:00 Lipitor - PO HS PETTY Sodium Chloride 1,000 mls @ 75 mls/hr 01/27/19 07:45 01/27/19 10:47 Normal Saline - IV 75 mls/hr ASDIR PETTY Administration Ceftriaxone Sodium 1 gm/ 50 mls @ 100 mls/hr 01/28/19 10:00 Dextrose IVPB DAILY PETTY Protocol Nitroglycerin 0.4 mg 01/27/19 05:59 Nitrostat - SL Q5M PRN FOR CHEST PAIN Pantoprazole Sodium 20 mg 01/27/19 10:00 01/27/19 10:48 Protonix - PO 20 mg DAILY PETTY Administration ASSESSMENT/PLAN: This is an 83 year old female with PMH significant for AFib, MVR, dementia, HTN , Anemia, and HLD. She presented to the ER with complaints of chest pain for the past 1 day and generalized weakness for the past 2 days. #Chest pain - ACS unlikely - ASA - Lipitor - NTG PRN for pain administered - Echo pending - Cardiac consult palced (Dr. Mcadams) #Hx of bleeding - Has had outpatient GI and OB F/U as per chart review (patient does not remember) - Protoni - FOBT negative #Hx of AFib - Continue Eliquis 2.5mg #Transaminitis - RUQ US pending - Tylenol, alcohol levels ordered - Avoid hepatotoxins Of note, I had a long conversation with the patient's out pt GI doctor, Dr. Phillips who stated that he saw the patient a few days ago for a complaint of weakness. He said she had a mild transaminitis at that time, but her exam was otherwise unconcerning. He mentioned that the patient had recent ultrasound and CT scan of the abdomen. He stated he had not yet discerned the etiology of her weakness, but had not felt she had any acute catastrophic problems. I also had a lengthy conversation with the patient's daughter who said the patient had recently been seen by the GI and also by a urologist. Evidently the patient felt she had vaginal bleeding, but after examining her, the urologist felt it was most likely old diarrhea considering the fact that the patient reportedly does not alw ay sallow the aide to promptly clean her. She stated that the patient's primary doctor will be faxing over a full report of all the recent testing she has had. Visit type - Emergency Visit Emergency Visit: Yes ED Registration Date: 01/26/19 Care time: The patient presented to the Emergency Department on the above date and was hospitalized for further evaluation of their emergent condition. - New Patient This patient is new to me today: Yes Date on this admission: 01/27/19 - Critical Care Critical Care patient: No ATTENDING PHYSICIAN STATEMENT I saw and evaluated the patient. I reviewed the resident's note and discussed the case with the resident. I agree with the resident's findings and plan as documented. SUBJECTIVE: OBJECTIVE: ASSESSMENT AND PLAN:
--- NOTE | 2019-01-27 15:59 | ECHO ---
Name: BOBBI ALBERT Exam:Adult Echocardiogram Study Date: 01/27/2019 02:43 PM Age: 83 yrs Reason For Study: POSSIBLE ACS Height: 65 in Weight: 160 lb BSA: 1.8 m2 MMode/2D Measurements & Calculations IVSd: 1.3 cm Ao root diam: 2.5 cm LVIDd: 4.4 cm LA dimension: 4.3 cm LVIDs: 2.9 cm LVPWd: 1.3 cm LVPWs: 1.5 cm EDV(Teich): 88.4 ml ESV(Teich): 31.1 ml LVOT diam: 1.9 cm RV S Ahmet: 13.3 cm/sec Doppler Measurements & Calculations MV E max ahmet: 202.0 cm/sec Ao V2 max: 114.5 cm/sec MV A max ahmet: 77.9 cm/sec Ao max P.2 mmHg MV E/A: 2.6 Ao V2 mean: 75.0 cm/sec MV dec time: 0.17 sec Ao mean P.8 mmHg Ao V2 VTI: 18.6 cm HARINDER(I,D): 1.7 cm2 HARINDER(V,D): 2.0 cm2 LV V1 max P.8 mmHg MR max ahmet: 406.7 cm/sec LV V1 mean P.4 mmHg MR max P.4 mmHg LV V1 max: 83.2 cm/sec LV V1 mean: 51.0 cm/sec LV V1 VTI: 11.9 cm SV(LVOT): 32.2 ml TR max ahmet: 347.7 cm/sec TR max P.7 mmHg RVSP(TR): 59.7 mmHg PA V2 max: 183.2 cm/sec Med Peak E' Ahmet: 7.6 cm/sec PA max P.4 mmHg Med E/e': 26.5 Lat Peak E' Ahmet: 7.7 cm/sec Lat E/e': 26.2 RAP systole: 10.0 mmHg Left Ventricle There is mild concentric left ventricular hypertrophy. Ejection Fraction = 55-60%. Left ventricular s ystolic function is normal. The transmitral spectral Doppler flow pattern is suggestive of pseudonormalizatio n. No discrete wall motion abnormalities. Right Ventricle There is a pacemaker lead in the right ventricle. The right ventricle is mildly dilated. The right ve ntricular systolic function is mildly reduced. Atria The left atrium is moderately dilated. The right atrium is mildly dilated. Mitral Valve There is moderate mitral annular calcification. Prolapse of the posterior mitral leaflet(s). There is no mitral valve stenosis. There is severe mitral regurgitation. Tricuspid Valve The tricuspid valve is normal in structure and function. There is moderate to severe tricuspid regurg itation. Right ventricular systolic pressure is elevated at >60mmHg. Aortic Valve There is mild aortic sclerosis.;. No hemodynamically significant valvular aortic stenosis. Pulmonic Valve The pulmonic valve is not well seen, but is grossly normal. Great Vessels The aortic root is normal size. Pericardium/Pleura There is no pericardial effusion. Interpretation Summary Compared to outside echocardiogram report from 12/07/18 ([facility]), current findings seem stable. There is mild concentric left ventricular hypertrophy. Ejection Fraction = 55-60%. Left ventricular systolic function is normal. There is a pacemaker lead in the right ventricle. The left atrium is moderately dilated. The right atrium is mildly dilated. Prolapse of the posterior mitral leaflet(s). There is severe mitral regurgitation. There is moderate to severe tricuspid regurgitation. Right ventricular systolic pressure is elevated at >60mmHg. No hemodynamically significant valvular aortic stenosis. There is no pericardial effusion. MD Norman Mcintyre 01/27/2019 03:59 PM
[2019-01-27 16:23] VITALS: BMI 23.3
[2019-01-27] MEDS: metoPROLOL SUCCINATE 25 MG TAB.SR.24H (FP) PO SCH (21:38)
[2019-01-27] MEDS: ATORVASTATIN CA 10 MG TABLET (FP) PO SCH (21:38)
[2019-01-27] MEDS ORDERED: ATORVASTATIN CA 40 MG TABLET (FP) PO SCH (22:00)
[2019-01-28 06:41] LABS: HEMATOCRIT 35.6 % (32.4-45.2); HEMOGLOBIN 11.7 GM/dL (10.7-15.3); MCH 31.3 pg (25.7-33.7); MCHC 32.7 g/dl (32.0-36.0); MEAN CELL VOLUME 95.4 fl (80-96); MEAN PLT VOLUME 10.2 fl (7.5-11.1); PLATELET COUNT 243 K/MM3 (134-434); RBC 3.73 M/mm3 (3.60-5.2); RDW 14.1 % (11.6-15.6); WHITE BLOOD COUNT 10.4 K/mm3 (4.0-10.0)
[2019-01-28 07:00] LABS: BLOOD UREA NITROGEN 24.6 mg/dL (7-18); CALCIUM 8.5 mg/dL (8.5-10.1); CREATININE 1.2 mg/dL (0.55-1.3); POTASSIUM 3.5 mmol/L (3.5-5.1)
[2019-01-28] MEDS ORDERED: cefTRIAXone SODIUM 1 GM VIAL ONE (09:33)
[2019-01-28] MEDS ORDERED: DEXTROSE 5%-WATER - 50 ML IVPB ONE (09:33)
[2019-01-28 09:39] LABS: ALBUMIN 3.2 g/dl (3.4-5.0); BILIRUBIN,DIRECT 0.2 mg/dL (0.0-0.2); BILIRUBIN,TOTAL 0.5 mg/dL (0.2-1); TOT PROT 6.5 g/dl (6.4-8.2)
[2019-01-28] MEDS: CEFTRIAXONE 1 GM in DEXTROSE 5%-WATER - 50 ML IVPB SCH (10:24)
[2019-01-28] MEDS: ASPIRIN 81 MG CHEWABLE TABLETS PO SCH (10:24)
[2019-01-28] MEDS: APIXABAN 2.5 MG TABLET PO SCH ×2 (10:24→21:37)
[2019-01-28] MEDS: PANTOPRAZOLE 20 MG TABLET (FP) PO SCH (10:24)
[2019-01-28] MEDS: metoPROLOL SUCCINATE 25 MG TAB.SR.24H (FP) PO SCH ×2 (10:24→21:37)
--- NOTE | 2019-01-28 11:52 | CON.ID ---
Consult Consult Specialty:: infectious diseases Referred by:: Jose Reason for Consultation:: uti - History of Present Illness Chief Complaint: weakness History of Present Illness: 83 year old female with PMH significant for AFib, MVR, dementia, HTN, Anemia, and HLD. She presented to the ER with complaints of chest pain for the past 1 day and generalized weakness for the past 2 days. The chest pain was substernal , sudden in onset, began in the afternoon, She endorses some bleeding that was both anal and vaginal in origin a few days ago, but does not remember the quality or quantity of the blood. She also does not remember if it was after a bowel movement, during wiping, or whether ot not she had any workup done afterwards. says after that one episode she was ok She lives with her and a time study technician aide, and she ambulates without assistance. She states that she has not had any recent illnesses, and does not know if she has had any changes in her medication. 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), Other (AV Node Ablation) Pulmonary: No: Asthma, Bronchitis, Cancer, COPD, O2 Dependent, Pneumonia, Previously Intubated, Pulmonary Embolus, Pulmonary Fibrosis, Sleep Apnea, Other Renal/: Yes: UTI ...: No Infectious Disease: Yes: Other (UTIS) Psych: No: Addictions, Anxiety, Bipolar, Depression, Panic, Psychosis, Schizophrenia, Other Musculoskeletal: No: Bursitis, Chronic low back pain, Hemiparesis, Hemiplegia, Osteoarthritis, Paraplegia, Other Rheumatology: No: Fibromyalgia, Gout, Lupus, Rheumatoid Arthritis, Sarcoidosis, Vasculitis, Other ENT: No: Allergic Rhinitis, Sinusitis, Other Endocrine: No: [place]'s Disease, [place]'s Disease, Diabetes Insipidus, Diabetes Mellitus, Hyperparathyroidism, Hyperthyroidism, Hypothyroidism, Osteopenia, SIADH, Other - Past Surgical History Past Surgical History: Yes: Permanent Pacemaker - Alcohol/Substance Use Hx Alcohol Use: No - Smoking History Smoking history: Former smoker Have you smoked in the past 12 months: No Aproximately how many cigarettes per day: 0 If you are a former smoker, when did you quit?: 30 YEARS AGO - Social History Usual Living Arrangement: Alone ADL: Independent History of Recent Travel: No Home Medications - Allergies Allergies/Adverse Reactions: Allergies Allergy/AdvReac Type Severity Reaction Status Date / Time No Known Allergies Allergy Verified 10/30/18 10:12 - Home Medications Home Medications: Ambulatory Orders Diltiazem HCl [Cartia Xt] 240 mg PO DAILY 06/12/18 Esomeprazole Magnesium 40 mg PO DAILY 06/12/18 Fluoxetine HCl [Prozac] 20 mg PO DAILY 06/12/18 Sucralfate [Carafate -] 1 gm PO TID 06/12/18 Apixaban [Eliquis] 2.5 mg PO BID 10/30/18 Atorvastatin Ca [Lipitor] 10 mg PO HS 10/30/18 Donepezil HCl 10 mg PO DAILY 10/30/18 Memantine HCl 10 mg PO BID 10/30/18 Cyanocobalamin (Vitamin B-12) [Vitamin B12] 5,000 mcg PO DAILY 01/27/19 Iron 325 mg PO BID 01/27/19 Metoprolol Succinate 25 mg PO BID 01/27/19 Review of Systems - Review of Systems Constitutional: reports: Weakness Eyes: reports: No Symptoms HENT: reports: No Symptoms Neck: reports: No Symptoms Cardiovascular: reports: No Symptoms Respiratory: reports: No Symptoms Gastrointestinal: reports: No Symptoms Genitourinary: reports: No Symptoms Musculoskeletal: reports: No Symptoms Integumentary: reports: No Symptoms Neurological: reports: No Symptoms Endocrine: reports: No Symptoms Hematology/Lymphatic: reports: No Symptoms Psychiatric: reports: No Symptoms Physical Exam Vital Signs: Vital Signs Temperature 97.8 F 01/28/19 06:00 Pulse Rate 72 01/28/19 09:16 Respiratory Rate 18 01/28/19 09:16 Blood Pressure 129/81 01/28/19 09:16 O2 Sat by Pulse Oximetry (%) 93 L 01/28/19 08:00 Constitutional: Yes: Well Nourished, No Distress, Calm Neck: Yes: Supple, Trachea Midline Cardiovascular: Yes: Regular Rate and Rhythm Respiratory: Yes: Regular, CTA Bilaterally Gastrointestinal: Yes: Normal Bowel Sounds, Soft Musculoskeletal: Yes: WNL Extremities: Yes: WNL Neurological: Yes: Alert, Oriented Psychiatric: Yes: Alert, Oriented Labs: CBC, BMP 01/28/19 06:00 01/28/19 06:00 Imaging - Results Chest X-ray: Report Reviewed, Image Reviewed Assessment/Plan 83 year old female with PMH significant for AFib, MVR, dementia, HTN, Anemia, and HLD. She presented to the ER with complaints of chest pain for the past 1 day and generalized weakness for the past 2 days. Chest pain Hx of bleeding Hx of AFib Transaminitis weakness patient has been started on ceftriaxone plan will continue current mgmt wait for all results nutrition physio rest as per the team
--- NOTE | 2019-01-28 11:58 | PN ---
Progress Note, Physician - Current Medication List Current Medications: Active Medications Apixaban (Eliquis -) 2.5 mg PO BID [facility] Last Admin: 01/28/19 10:24 Dose: 2.5 mg Aspirin (Asa -) 81 mg PO DAILY [facility] Last Admin: 01/28/19 10:24 Dose: 81 mg Atorvastatin Calcium (Lipitor -) 10 mg PO HS [facility] Last Admin: 01/27/19 21:38 Dose: 10 mg Diltiazem HCl (Cardizem Cd -) 240 mg PO DAILY [facility] Last Admin: 01/28/19 10:24 Dose: 240 mg Ceftriaxone Sodium 1 gm/ (Dextrose) 50 mls @ 100 mls/hr IVPB DAILY [facility]; Protocol Last Admin: 01/28/19 10:24 Dose: 100 mls/hr Metoprolol Succinate (Toprol Xl -) 25 mg PO BID [facility] Last Admin: 01/28/19 10:24 Dose: 25 mg Nitroglycerin (Nitrostat -) 0.4 mg SL Q5M PRN PRN Reason: FOR CHEST PAIN Pantoprazole Sodium (Protonix -) 20 mg PO DAILY [facility] Last Admin: 01/28/19 10:24 Dose: 20 mg - Objective Vital Signs: Vital Signs Temperature 97.8 F 01/28/19 06:00 Pulse Rate 72 01/28/19 09:16 Respiratory Rate 18 01/28/19 09:16 Blood Pressure 129/81 01/28/19 09:16 O2 Sat by Pulse Oximetry (%) 93 L 01/28/19 08:00 Labs: CBC, BMP 01/28/19 06:00 01/28/19 06:00 INR, PTT INR 1.72 (0.83-1.09) H 01/26/19 18:06
--- NOTE | 2019-01-28 12:25 | PN ---
Progress Note (short form) - Note Progress Note: s: no chest pain, palps, dizziness, dyspnea Current Medications Apixaban (Eliquis -) 2.5 mg PO BID [facility] Last Admin: 01/28/19 10:24 Dose: 2.5 mg Aspirin (Asa -) 81 mg PO DAILY [facility] Last Admin: 01/28/19 10:24 Dose: 81 mg Atorvastatin Calcium (Lipitor -) 10 mg PO HS [facility] Last Admin: 01/27/19 21:38 Dose: 10 mg Diltiazem HCl (Cardizem Cd -) 240 mg PO DAILY [facility] Last Admin: 01/28/19 10:24 Dose: 240 mg Ceftriaxone Sodium 1 gm/ (Dextrose) 50 mls @ 100 mls/hr IVPB DAILY [facility]; Protocol Last Admin: 01/28/19 10:24 Dose: 100 mls/hr Metoprolol Succinate (Toprol Xl -) 25 mg PO BID [facility] Last Admin: 01/28/19 10:24 Dose: 25 mg Nitroglycerin (Nitrostat -) 0.4 mg SL Q5M PRN PRN Reason: FOR CHEST PAIN Pantoprazole Sodium (Protonix -) 20 mg PO DAILY [facility] Last Admin: 01/28/19 10:24 Dose: 20 mg Vital Signs Period Temp Pulse Resp BP Sys/Rice Pulse Ox Last 24 Hr 97.4 F-97.8 F 70-78 18-20 101-131/59-81 93-100 Constitutional: Yes: Anxious Eyes: Yes: Conjunctiva Clear HENT: Yes: Atraumatic, Normocephalic Neck: Yes: Trachea Midline Respiratory: Yes: Other (slight decreased breath sounds at bases) Gastrointestinal: Yes: soft, nt, nd Renal/: Yes: WNL Cardiovascular: Yes: Regular Rate and Rhythm JVD: No Carotid Bruit: No Murmur: Yes: Systolic Murmur, Grade 3 (apex) Edema: No Peripheral Pulses WNL: Yes Neurological: Yes: Alert, Oriented NSR TWI III, mildly prolonged QT Echo report from 12/07/18 reviewed: Normal LVEF, LAE, Severe MR w/ posterior leaflet prolapse. Severe PHTN Imaging - Results Cat Scan: Pending EKG: Image Reviewed Assessment/Plan IMP: 1. Chronic cognitive dysfx/progressive dementia followed by Neuro 2. Recent frequent UTIs 3. PAF s/p PPM 4. Chronic mitral regurgitation, worsening as per daughter 5. Transaminitis 6. Generalized weakness, possible recurrent UTI triggering worsening of chronic cognitive dysfx 7. Equivocal TnIs REC: - per Dr. Lamas d/w her improvement director Dr. Cam - unclear if fatigue 2/ 2 MR/PHTN vs recurrent UTI - trop here indeterminate range, flat trend - less likely ACS - monitoring on tele - Echo findings here similar to prior 11/2018 - nl LV function, severe MR, severe PHTN - manage UTI per primary - cont eliquis - BP stable - will add low dose NILA for afterload reduction which may help with MR, monitor BP
--- NOTE | 2019-01-28 13:44 | PN ---
Physical Exam: SUBJECTIVE: Patient seen and examined; no new complaints. Still some fatigue. Denies CP, SOB. No owning reported. Continuing on ceftriaxone for UTI. Did have some brief runs of PAT on tele overnight but patient tells me that she is not currently symptomatic and that she didn't notice when this happened. Per cardiology, unsure if fatigue 2/2 severe underlying MR or the current UTI. NILA inhibitor added Echo reviewed with no significant changes since the 2017 study. Troponin is flat making this much less likely ACS. Continue to monitor on floor on medicine service with ID and cardiology consultation; appreciate expert recommendations from subspecialty services. 10 sys ROS done and negative aside from HPI. OBJECTIVE: Vital Signs Period Temp Pulse Resp BP Sys/Rice Pulse Ox Last 24 Hr 97.4 F-97.8 F 70-78 18-20 101-131/59-81 93-100 VS, labs, imaging reviewed NAD, AAO, resting in bed NC AT EOMI PERRLA Trachea midline without marked JVD, no LN noted RRR s1/2 no mgr Lungs CTAB, w/ sym exp Unchanged from yesterday; she persists with mild tenderness with mild distention ; no localizations. Skin without new rashes or breakdown Normal muscle tone and moves all 4 ext with no apparent myalgia or impacted ROM. Normal mood, appropriate behavior. Laboratory Results - last 24 hr 01/27/19 01/27/19 01/28/19 07:10 17:00 05:33 WBC RBC Hgb Hct MCV MCH MCHC RDW Plt Count MPV Sodium Potassium Chloride Carbon Dioxide Anion Gap BUN Creatinine Est GFR (CKD-EPI)AfAm Est GFR (CKD-EPI)NonAf POC Glucometer 132 Random Glucose Calcium Total Bilirubin Direct Bilirubin AST ALT Alkaline Phosphatase CK-MB (CK-2) 2.6 Total Protein Albumin Hep A IgM Ab Confirm Negative Hep Bs Antigen Negative Hep B Core IgM Ab Negative Hepatitis C Ab (EIA) <0.1 01/28/19 01/28/19 06:00 06:00 WBC 10.4 H RBC 3.73 Hgb 11.7 Hct 35.6 MCV 95.4 MCH 31.3 MCHC 32.7 RDW 14.1 Plt Count 243 D MPV 10.2 D Sodium 139 Potassium 3.5 Chloride 104 Carbon Dioxide 27 Anion Gap 8 BUN 24.6 H Creatinine 1.2 Est GFR (CKD-EPI)AfAm 48.40 Est GFR (CKD-EPI)NonAf 41.76 POC Glucometer Random Glucose 127 H Calcium 8.5 Total Bilirubin 0.5 Direct Bilirubin 0.2 AST 49 H ALT 114 H Alkaline Phosphatase 139 H CK-MB (CK-2) Total Protein 6.5 Albumin 3.2 L Hep A IgM Ab Confirm Hep Bs Antigen Hep B Core IgM Ab Hepatitis C Ab (EIA) Active Medications Generic Name Dose Route Start Last Admin Trade Name Freq PRN Reason Stop Dose Admin Apixaban 2.5 mg 01/27/19 12:30 01/28/19 10:24 Eliquis - PO 2.5 mg BID [facility] Administration Aspirin 81 mg 01/27/19 10:00 01/28/19 10:24 Asa - PO 81 mg DAILY [facility] Administration Atorvastatin Calcium 10 mg 01/27/19 22:00 01/27/19 21:38 Lipitor - PO 10 mg HS [facility] Administration Diltiazem HCl 240 mg 01/28/19 10:00 01/28/19 10:24 Cardizem Cd - PO 240 mg DAILY [facility] Administration Ceftriaxone Sodium 1 gm/ 50 mls @ 100 mls/hr 01/28/19 10:00 01/28/19 10:24 Dextrose IVPB 100 mls/hr DAILY [facility] Administration Protocol Lisinopril 2.5 mg 01/29/19 10:00 Prinivil PO DAILY [facility] Metoprolol Succinate 25 mg 01/27/19 22:00 01/28/19 10:24 Toprol Xl - PO 25 mg BID [facility] Administration Nitroglycerin 0.4 mg 01/27/19 05:59 Nitrostat - SL Q5M PRN FOR CHEST PAIN Pantoprazole Sodium 20 mg 01/27/19 10:00 01/28/19 10:24 Protonix - PO 20 mg DAILY [facility] Administration ASSESSMENT/PLAN: Patient has a complex medical history and sees outpatient specialists for her ongoing GI issues and ongoing cardiovascular issues. We spoke with her outpatietn GI yesterday regarding her fatigue symptoms and issue with ongoing transaminitis; cardiology per documentation spoke with her OP medical service technician. As stated above it is difficult to postulate whether the fatigue is resulting from the patient's underlying severe MR or resulting from the acute cystitis. ID continues to follow and she is maintained on ceftriaxone. There are no indicated additional hepatobiliary imaging studies recommended by her OP GI and she may followup with them as scheduled. Cardiology started NILA inhibitor today and we will continue to monitor BP closely when inpatinet. Echo was reviewed by cardiology team and stated to not have any major differences from her previous study. She remains afebrile, hemodynamically stable. Will add pulmonary consult to see if there is anything they can offer from their perspective for the known underlying pulmonary HTN. Problems include: -Ongoing Fatigue -Troponemia likely 2/2 subendocardial ischemia as opposed to plaque related issue -Severe underlying MR -Severe Pulmonary HTN -Continuing eliquis -Acute cystitis on ceftriaxone with ID following. Code status unchanged Visit type - Emergency Visit Emergency Visit: No - New Patient This patient is new to me today: No - Critical Care Critical Care patient: No
[2019-01-28] MEDS: ATORVASTATIN CA 10 MG TABLET (FP) PO SCH (21:37)
--- NOTE | 2019-01-28 23:49 | EKG ---
Test Reason : Blood Pressure : / mmHG Vent. Rate : 075 BPM Atrial Rate : 075 BPM P-R Int : 126 ms QRS Dur : 100 ms QT Int : 440 ms P-R-T Axes : 069 033 -11 degrees QTc Int : 491 ms NORMAL SINUS RHYTHM POSSIBLE LEFT ATRIAL ENLARGEMENT PROLONGED QT ABNORMAL ECG WHEN COMPARED WITH ECG OF 27-JAN-2019 02:48, NO SIGNIFICANT CHANGE WAS FOUND Confirmed by MICH RUBALCAVA MD ([id number]) on 01/28/2019 11:49:28 PM Referred By: Confirmed By:MICH RUBALCAVA MD
[2019-01-29 06:45] LABS: BASO % 0.7 % (0-2.0); EOS % 1.2 % (0-4.5); HEMATOCRIT 35.2 % (32.4-45.2); HEMOGLOBIN 11.3 GM/dL (10.7-15.3); LYMPH % 8.6 % (8-40); MCH 30.8 pg (25.7-33.7); MCHC 32.2 g/dl (32.0-36.0); MEAN CELL VOLUME 95.6 fl (80-96); MEAN PLT VOLUME 10.4 fl (7.5-11.1); NEUT % 77.5 % (42.8-82.8); PLATELET COUNT 213 K/MM3 (134-434); RBC 3.69 M/mm3 (3.60-5.2); RDW 14.2 % (11.6-15.6)
[2019-01-29 07:17] LABS: BILIRUBIN,TOTAL 0.5 mg/dL (0.2-1); BLOOD UREA NITROGEN 20.6 mg/dL (7-18); CALCIUM 8.4 mg/dL (8.5-10.1); CREATININE 1.1 mg/dL (0.55-1.3); MAGNESIUM 2.2 mg/dL (1.8-2.4); POTASSIUM 3.6 mmol/L (3.5-5.1); TOT PROT 6.2 g/dl (6.4-8.2)
--- NOTE | 2019-01-29 08:51 | PN ---
Physical Exam: SUBJECTIVE: Patient seen and examined; Ucx ordered earlier by our ream not collectede; reordered yesterday and collected and negative. Pt. had already been on abx and gets chronic UTIs with OP abx making this result less acurate. Awaiting ID input. Still complains of weakness Fluid status and cardiovascular exam unchanged. Spoke with her and her family regarding overall treatment. BP acceptable on NILA; checking BMP in AM. OBJECTIVE: Vital Signs Period Temp Pulse Resp BP Sys/Rice Pulse Ox Last 24 Hr 97.4 F-98.2 F 65-91 18-20 107-129/60-81 97-97 VS, labs, imaging reviewed NAD, AAO, resting in bed NC AT EOMI PERRLA Trachea midline without marked JVD, no LN noted RRR s1/2 no mgr Lungs CTAB, w/ sym exp Unchanged from yesterday; she persists with mild tenderness with mild distention ; no localizations. Skin without new rashes or breakdown Normal muscle tone and moves all 4 ext with no apparent myalgia or impacted ROM. Normal mood, appropriate behavior. Laboratory Results - last 24 hr 01/28/19 01/29/19 01/29/19 06:00 06:15 06:15 WBC 10.0 RBC 3.69 Hgb 11.3 Hct 35.2 MCV 95.6 MCH 30.8 MCHC 32.2 RDW 14.2 Plt Count 213 MPV 10.4 Absolute Neuts (auto) 7.8 Neutrophils % 77.5 Lymphocytes % 8.6 D Monocytes % 12.0 H Eosinophils % 1.2 D Basophils % 0.7 Nucleated RBC % 0 Sodium 139 139 Potassium 3.5 3.6 Chloride 104 104 Carbon Dioxide 27 26 Anion Gap 8 9 BUN 24.6 H 20.6 H Creatinine 1.2 1.1 Est GFR (CKD-EPI)AfAm 48.40 53.77 Est GFR (CKD-EPI)NonAf 41.76 46.39 Random Glucose 127 H 117 H Calcium 8.5 8.4 L Magnesium 2.2 Total Bilirubin 0.5 0.5 Direct Bilirubin 0.2 AST 49 H 31 ALT 114 H 83 H Alkaline Phosphatase 139 H 125 H Total Protein 6.5 6.2 L Albumin 3.2 L 3.0 L Active Medications Generic Name Dose Route Start Last Admin Trade Name Freq PRN Reason Stop Dose Admin Apixaban 2.5 mg 01/27/19 12:30 01/28/19 21:37 Eliquis - PO 2.5 mg BID [facility] Administration Aspirin 81 mg 01/27/19 10:00 01/28/19 10:24 Asa - PO 81 mg DAILY [facility] Administration Atorvastatin Calcium 10 mg 01/27/19 22:00 01/28/19 21:37 Lipitor - PO 10 mg HS [facility] Administration Diltiazem HCl 240 mg 01/28/19 10:00 01/28/19 10:24 Cardizem Cd - PO 240 mg DAILY [facility] Administration Ceftriaxone Sodium 1 gm/ 50 mls @ 100 mls/hr 01/28/19 10:00 01/28/19 10:24 Dextrose IVPB 100 mls/hr DAILY [facility] Administration Protocol Lisinopril 2.5 mg 01/29/19 10:00 Prinivil PO DAILY [facility] Metoprolol Succinate 25 mg 01/27/19 22:00 01/28/19 21:37 Toprol Xl - PO 25 mg BID [facility] Administration Nitroglycerin 0.4 mg 01/27/19 05:59 Nitrostat - SL Q5M PRN FOR CHEST PAIN Pantoprazole Sodium 20 mg 01/27/19 10:00 01/28/19 10:24 Protonix - PO 20 mg DAILY [facility] Administration ASSESSMENT/PLAN: Patient has a complex medical history and sees outpatient specialists for her ongoing GI issues and ongoing cardiovascular issues. GI issues are chronic; cardiology per documentation spoke with her OP wood heel attacher. As stated above it is difficult to postulate whether the fatigue is resulting from the patient' s underlying severe MR or resulting from the acute cystitis. ID continues to follow and she is maintained on ceftriaxone. Culture results discussed. There are no indicated additional hepatobiliary imaging studies recommended by her OP GI and she may followup with them as scheduled. Family is investigating cholecystectomy records and can discuss the additional findings with OP GI on wednesday. She has no progressive symptoms and we will continue to trend her CMP. Cardiology Continuing NILA; BP acceptable. Echo was reviewed by cardiology team and stated to not have any major differences from her previous study. She remains afebrile, hemodynamically stable. Awaiting pulmonary HTN consult; appreciated. Problems include: -Ongoing Fatigue -Troponemia likely 2/2 subendocardial ischemia as opposed to plaque related issue -Severe underlying MR -Severe Pulmonary HTN -Continuing eliquis -Acute cystitis on ceftriaxone with ID following. Code status unchanged Visit type - Emergency Visit Emergency Visit: No - New Patient This patient is new to me today: No - Critical Care Critical Care patient: No
[2019-01-29] MEDS ORDERED: cefTRIAXone SODIUM 1 GM VIAL ONE (09:24)
[2019-01-29] MEDS ORDERED: DEXTROSE 5%-WATER - 50 ML IVPB ONE (09:24)
[2019-01-29] MEDS: PANTOPRAZOLE 20 MG TABLET (FP) PO SCH (09:27)
[2019-01-29] MEDS: metoPROLOL SUCCINATE 25 MG TAB.SR.24H (FP) PO SCH ×2 (09:27→22:17)
[2019-01-29] MEDS: ASPIRIN 81 MG CHEWABLE TABLETS PO SCH (09:27)
[2019-01-29] MEDS: APIXABAN 2.5 MG TABLET PO SCH ×2 (09:27→22:17)
[2019-01-29] MEDS: LISINOPRIL 5 MG TABLET (FP) PO SCH (09:28)
[2019-01-29] MEDS: CEFTRIAXONE 1 GM in DEXTROSE 5%-WATER - 50 ML IVPB SCH (09:28)
--- NOTE | 2019-01-29 09:31 | PN ---
Progress Note (short form) - Note Progress Note: PULMONARY CONSULTATION DICTATED 01/29/19 IMP DYSPNEA/WEAKNESS SEVERE PULMONARY HTN ? VALVULAR HD CP ASHD AFIB S/P AV TEJA ABLATION ,S/P PPM HTN DEMENTIA + TROPONIN PLAN CONTINUE AC AMBULATORY O2 SAT TO DETERMINE IF PT IS A CANDIDATE FOR HOME O2 SUPPLEMENTAL O2 ABX PER ID CHEST CT TREND TROPONINS RATE CONTROL PER CARDIOLOGY DR CHRISTENSEN Problem List - Problems (1) Pulmonary HTN Code(s): I27.20 - PULMONARY HYPERTENSION, UNSPECIFIED (2) Elevated troponin Code(s): R74.8 - ABNORMAL LEVELS OF OTHER SERUM ENZYMES (3) Weakness Code(s): R53.1 - WEAKNESS (4) Malaise Code(s): R53.81 - OTHER MALAISE (5) Atrial fibrillation Code(s): I48.91 - UNSPECIFIED ATRIAL FIBRILLATION Qualifiers: Atrial fibrillation type: paroxysmal Qualified Code(s): I48.0 - Paroxysmal atrial fibrillation (6) HTN (hypertension) Code(s): I10 - ESSENTIAL (PRIMARY) HYPERTENSION (7) Mitral valve regurgitation Code(s): I34.0 - NONRHEUMATIC MITRAL (VALVE) INSUFFICIENCY
--- NOTE | 2019-01-29 12:27 | PN ---
Progress Note, Physician History of Present Illness: stable no new issues - Current Medication List Current Medications: Active Medications Apixaban (Eliquis -) 2.5 mg PO BID [facility] Last Admin: 01/29/19 09:27 Dose: 2.5 mg Aspirin (Asa -) 81 mg PO DAILY [facility] Last Admin: 01/29/19 09:27 Dose: 81 mg Atorvastatin Calcium (Lipitor -) 10 mg PO HS [facility] Last Admin: 01/28/19 21:37 Dose: 10 mg Diltiazem HCl (Cardizem Cd -) 240 mg PO DAILY [facility] Last Admin: 01/29/19 09:28 Dose: 240 mg Ceftriaxone Sodium 1 gm/ (Dextrose) 50 mls @ 100 mls/hr IVPB DAILY [facility]; Protocol Last Admin: 01/29/19 09:28 Dose: 100 mls/hr Lisinopril (Prinivil) 2.5 mg PO DAILY [facility] Last Admin: 01/29/19 09:28 Dose: 2.5 mg Metoprolol Succinate (Toprol Xl -) 25 mg PO BID [facility] Last Admin: 01/29/19 09:27 Dose: 25 mg Nitroglycerin (Nitrostat -) 0.4 mg SL Q5M PRN PRN Reason: FOR CHEST PAIN Pantoprazole Sodium (Protonix -) 20 mg PO DAILY [facility] Last Admin: 01/29/19 09:27 Dose: 20 mg - Objective Vital Signs: Vital Signs Temperature 97.4 F L 01/29/19 05:00 Pulse Rate 68 01/29/19 05:00 Respiratory Rate 20 01/29/19 08:00 Blood Pressure 118/64 01/29/19 05:00 O2 Sat by Pulse Oximetry (%) 97 01/29/19 08:00 Constitutional: Yes: No Distress, Calm Cardiovascular: Yes: S1, S2 Respiratory: Yes: Regular, CTA Bilaterally Gastrointestinal: Yes: Normal Bowel Sounds, Soft Musculoskeletal: Yes: WNL Extremities: Yes: WNL Neurological: Yes: Alert, Oriented Psychiatric: Yes: Alert, Oriented Labs: CBC, BMP 01/29/19 06:15 01/29/19 06:15 INR, PTT INR 1.72 (0.83-1.09) H 01/26/19 18:06 Assessment/Plan 83 year old female with PMH significant for AFib, MVR, dementia, HTN, Anemia, and HLD. She presented to the ER with complaints of chest pain for the past 1 day and generalized weakness for the past 2 days. Chest pain Hx of bleeding Hx of AFib Transaminitis weakness patient has been started on ceftriaxone plan will stop abx and monitor wait for all results nutrition physio rest as per the team
--- NOTE | 2019-01-29 12:57 | PN ---
Progress Note (short form) - Note Progress Note: s: no chest pain, palps, dizziness, dyspnea. still feels tired Current Medications Apixaban (Eliquis -) 2.5 mg PO BID [facility] Last Admin: 01/29/19 09:27 Dose: 2.5 mg Aspirin (Asa -) 81 mg PO DAILY [facility] Last Admin: 01/29/19 09:27 Dose: 81 mg Atorvastatin Calcium (Lipitor -) 10 mg PO HS [facility] Last Admin: 01/28/19 21:37 Dose: 10 mg Diltiazem HCl (Cardizem Cd -) 240 mg PO DAILY [facility] Last Admin: 01/29/19 09:28 Dose: 240 mg Lisinopril (Prinivil) 2.5 mg PO DAILY [facility] Last Admin: 01/29/19 09:28 Dose: 2.5 mg Metoprolol Succinate (Toprol Xl -) 25 mg PO BID [facility] Last Admin: 01/29/19 09:27 Dose: 25 mg Nitroglycerin (Nitrostat -) 0.4 mg SL Q5M PRN PRN Reason: FOR CHEST PAIN Pantoprazole Sodium (Protonix -) 20 mg PO DAILY [facility] Last Admin: 01/29/19 09:27 Dose: 20 mg Vital Signs Period Temp Pulse Resp BP Sys/Rice Pulse Ox Last 24 Hr 97.4 F-98.2 F 65-91 18-20 107-125/60-79 97-97 Constitutional: Yes: Anxious Eyes: Yes: Conjunctiva Clear HENT: Yes: Atraumatic, Normocephalic Neck: Yes: Trachea Midline Respiratory: Yes: Other (slight decreased breath sounds at bases) Gastrointestinal: Yes: soft, nt, nd Renal/: Yes: WNL Cardiovascular: Yes: Regular Rate and Rhythm JVD: No Carotid Bruit: No Murmur: Yes: Systolic Murmur, Grade 3 (apex) Edema: No Peripheral Pulses WNL: Yes Neurological: Yes: Alert, Oriented NSR TWI III, mildly prolonged QT Echo report from 12/07/18 reviewed: Normal LVEF, LAE, Severe MR w/ posterior leaflet prolapse. Severe PHTN Imaging - Results Cat Scan: Pending EKG: Image Reviewed Assessment/Plan IMP: 1. Chronic cognitive dysfx/progressive dementia followed by Neuro 2. Recent frequent UTIs 3. PAF s/p PPM 4. Chronic mitral regurgitation, worsening as per daughter 5. Transaminitis 6. Generalized weakness, possible recurrent UTI triggering worsening of chronic cognitive dysfx 7. Equivocal TnIs REC: - per Dr. Lamas d/w her director [place] sales Dr. Cam - unclear if fatigue 2/ 2 MR/PHTN vs recurrent UTI - trop here indeterminate range, flat trend - less likely ACS - monitoring on tele - Echo findings here similar to prior 11/2018 - nl LV function, severe MR, severe PHTN - manage UTI per primary - cont eliquis - low dose NILA added for afterload reduction which may help with MR, BP stable
--- NOTE | 2019-01-29 15:49 | CONS ---
DATE OF CONSULTATION: 01/29/2019 REFERRING PHYSICIAN: Dr. Velez The patient is an 83-year-old white female with a past medical history of pulmonary hypertension, severe mitral regurgitation, tricuspid regurgitation, atrial fibrillation, status post ablation, status post permanent pacemaker, dementia, hypertension, anemia, hyperlipidemia, history of tobacco use, approximately 2 packs per day for 30 years, quit 30 years ago, admitted to [facility] on January 26 with complaint of chest pain and generalized weakness for the past 2 days prior to admission. Patient's chest pain was substernal, sudden in onset, began in the afternoon, rated 3/10 in intensity, nonradiating. The pain, patient was unsure whether or not it exertional versus non-exertional. She also complained of increasing shortness of breath. Also the patient has a history of recurrent UTIs requiring antibiotic therapy. On admission, she was felt to have a possible UTI. She was placed on antibiotic therapy as per Infectious Disease. Patient denies any fevers or chills. Denies any hemoptysis. Of note, she underwent an echocardiogram, which revealed severe pulmonary hypertension with a right ventricular systolic pressure greater than 60 mmHg. She was also noted to have severe mitral regurgitation as well as moderate to severe tricuspid regurgitation. Left ventricular systolic function was normal limits. Patient has been noted to have shortness of breath with minimal exertion and appears dyspneic at rest. She denies any history of DVT or PE in the past. There is no history of occupational exposure to chemicals or fumes. She is unsure when her symptoms of shortness of breath began. Past medical history, again, includes atrial fibrillation, status post AV raya ablation, status post permanent pacemaker, pulmonary hypertension, hyperlipidemia, dementia, recurrent UTIs, anemia, hyperlipidemia. REVIEW OF SYSTEMS: Positive dyspnea, positive chest pain. No cough. No hemoptysis. No abdominal pain. No lower extremity edema. SOCIAL HISTORY: History of tobacco use, 2 packs per day for 30 years, quit 30 years ago. 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 PHYSICAL EXAMINATION: General: The patient is a, well-developed, well-nourished female, awake, alert, mildly confused and dyspneic at rest. Vital Signs: She is currently afebrile. Blood pressure is 118/64. Respiratory rate 20. O2 saturation is 97% on room air. HEENT: Normocephalic, atraumatic. Neck: Supple. Heart: Irregularly irregular. S1, S2. Chest: Clear. Abdomen: Soft. Bowel sounds are positive. Extremities: No cyanosis, edema. LABORATORY DATA: WBC is 10, hemoglobin 11.3, hematocrit 35.2, with a platelet count of 213,000, INR is 1.72, BUN 20, creatinine 1.1. LFTs are mildly elevated. Alkaline phosphatase 125 but it has improved since admission from 132, ALT is 83, was previously 132 on admission. Troponin 0.12. Chest x-ray again reveals poor inspiratory effort, cardiomegaly, prominent hilum, pacemaker. Echo was noted. Urine C&S: No growth. IMPRESSION: 1. Dyspnea, weakness, most likely secondary to severe pulmonary hypertension, most likely secondary to severe mitral regurgitation. Other possibility etiologies such as underlying obstructive airway disease,Interstitial lung disease, sleep apnea , chronic emboli, although patient is on anticoagulation. 2. Chest pain. 3. Arteriosclerotic heart disease. 4. Atrial fibrillation, status post AV raya ablation, status post permanent pacemaker. 5. Hypertension. 6. Dementia. 7. Troponins. PLAN: Continue anticoagulation. Ambulatory O2 saturation to determine if patient is a candidate for home O2. Supplemental O2 as needed. Antibiotics as per Infectious Disease. Chest CT. Trend troponins. Rate control as per Cardiology. LISA CHRISTENSEN M.D. [id number] MTDD
[2019-01-29] MEDS: ATORVASTATIN CA 10 MG TABLET (FP) PO SCH (22:17)
[2019-01-30 06:35] LABS: BASO % 0.5 % (0-2.0); EOS % 1.9 % (0-4.5); HEMATOCRIT 32.2 % (32.4-45.2); HEMOGLOBIN 10.7 GM/dL (10.7-15.3); LYMPH % 12.3 % (8-40); MCH 31.2 pg (25.7-33.7); MCHC 33.1 g/dl (32.0-36.0); MEAN CELL VOLUME 94.4 fl (80-96); MEAN PLT VOLUME 10.2 fl (7.5-11.1); MONO % 13.6 % (3.8-10.2); NEUT % 71.7 % (42.8-82.8); PLATELET COUNT 195 K/MM3 (134-434); RBC 3.42 M/mm3 (3.60-5.2); RDW 14.2 % (11.6-15.6); WHITE BLOOD COUNT 8.6 K/mm3 (4.0-10.0)
[2019-01-30 06:53] LABS: BLOOD UREA NITROGEN 22.9 mg/dL (7-18); CALCIUM 8.3 mg/dL (8.5-10.1); CREATININE 1.1 mg/dL (0.55-1.3); MAGNESIUM 2.2 mg/dL (1.8-2.4); POTASSIUM 4.2 mmol/L (3.5-5.1)
--- NOTE | 2019-01-30 10:04 | PN ---
Progress Note, Physician Chief Complaint: cp, sob, tired History of Present Illness: "very tired". denies any sob or cp. feels she has enough energy to go home. no palpit, leg swelling - Current Medication List Current Medications: Active Medications Apixaban (Eliquis -) 2.5 mg PO BID [facility] Last Admin: 01/29/19 22:17 Dose: 2.5 mg Aspirin (Asa -) 81 mg PO DAILY [facility] Last Admin: 01/29/19 09:27 Dose: 81 mg Atorvastatin Calcium (Lipitor -) 10 mg PO HS [facility] Last Admin: 01/29/19 22:17 Dose: 10 mg Diltiazem HCl (Cardizem Cd -) 240 mg PO DAILY [facility] Last Admin: 01/29/19 09:28 Dose: 240 mg Lisinopril (Prinivil) 2.5 mg PO DAILY [facility] Last Admin: 01/29/19 09:28 Dose: 2.5 mg Metoprolol Succinate (Toprol Xl -) 25 mg PO BID [facility] Last Admin: 01/29/19 22:17 Dose: 25 mg Nitroglycerin (Nitrostat -) 0.4 mg SL Q5M PRN PRN Reason: FOR CHEST PAIN Pantoprazole Sodium (Protonix -) 20 mg PO DAILY [facility] Last Admin: 01/29/19 09:27 Dose: 20 mg - Objective Vital Signs: Vital Signs Temperature 97.6 F 01/30/19 05:00 Pulse Rate 60 01/30/19 05:00 Respiratory Rate 20 01/30/19 05:00 Blood Pressure 119/63 01/30/19 05:00 O2 Sat by Pulse Oximetry (%) 98 01/30/19 00:00 Constitutional: Yes: Well Nourished, No Distress, Calm Cardiovascular: Yes: Regular Rate and Rhythm, Murmur (loud HSM apex to L axilla) , S1, S2. No: JVD, Gallop Respiratory: Yes: Regular, CTA Bilaterally. No: Accessory Muscle Use, Rales, Wheezes Extremities: No: Cold Edema: No Neurological: Yes: Alert. No: Seizure Psychiatric: No: Agitated Labs: CBC, BMP 01/30/19 05:45 01/30/19 05:45 INR, PTT INR 1.72 (0.83-1.09) H 01/26/19 18:06 Assessment/Plan Echo report from 7/31/19 reviewed: Normal LVEF, LAE, Severe MR w/ posterior leaflet prolapse. Severe PHTN Echo here 01/26: similar findings tele: NSR, PVCs Assessment/Plan IMP: -Generalized weakness, possible recurrent UTI triggering worsening of chronic cognitive dysfx --Chronic cognitive dysfx/progressive dementia followed by Neuro --Recent frequent UTIs --PAF s/p PPM --Chronic mitral regurgitation, worsening as per daughter --Transaminitis--? sec to statin --known h/o non-cardiac CP, again with atypical CP here. ECG with new nonspecific ST-T changes. indeterminate TnIs, flat trend = not c/w ACS. REC: - per Dr. Lamas d/w her string studies director Dr. Cam - unclear if fatigue 2/ 2 MR/PHTN vs recurrent UTI - no ischemia q/u planned in d/w dtr (see prior notes). no more cp. observe - severe MR with no signs of HF here, including lungs clear. MV intervention being deferred by Dr. Cam given pt's progressive decline--outpt f/u with him rec'd - d/c tele - Echo findings here similar to prior 11/2018 - nl LV function, severe MR, severe PHTN - manage UTI per primary - cont eliquis - low dose NILA added for afterload reduction which may help with MR, BP stable - transaminitis resolved with holding statin here (note: was not diuresed)-- cont holding
[2019-01-30] MEDS: LISINOPRIL 5 MG TABLET (FP) PO SCH (10:16)
[2019-01-30] MEDS: APIXABAN 2.5 MG TABLET PO SCH ×2 (10:16→21:01)
[2019-01-30] MEDS: ASPIRIN 81 MG CHEWABLE TABLETS PO SCH (10:16)
[2019-01-30] MEDS: PANTOPRAZOLE 20 MG TABLET (FP) PO SCH (10:16)
[2019-01-30] MEDS: metoPROLOL SUCCINATE 25 MG TAB.SR.24H (FP) PO SCH ×2 (10:17→21:01)
--- NOTE | 2019-01-30 10:41 | PN ---
Progress Note, Physician History of Present Illness: pulmonary alert,comfortable,less dyspneic - Current Medication List Current Medications: Active Medications Apixaban (Eliquis -) 2.5 mg PO BID [facility] Last Admin: 01/30/19 10:16 Dose: 2.5 mg Aspirin (Asa -) 81 mg PO DAILY [facility] Last Admin: 01/30/19 10:16 Dose: 81 mg Atorvastatin Calcium (Lipitor -) 10 mg PO HS [facility] Last Admin: 01/29/19 22:17 Dose: 10 mg Diltiazem HCl (Cardizem Cd -) 240 mg PO DAILY [facility] Last Admin: 01/30/19 10:16 Dose: 240 mg Lisinopril (Prinivil) 2.5 mg PO DAILY [facility] Last Admin: 01/30/19 10:16 Dose: 2.5 mg Metoprolol Succinate (Toprol Xl -) 25 mg PO BID [facility] Last Admin: 01/30/19 10:17 Dose: 25 mg Nitroglycerin (Nitrostat -) 0.4 mg SL Q5M PRN PRN Reason: FOR CHEST PAIN Pantoprazole Sodium (Protonix -) 20 mg PO DAILY [facility] Last Admin: 01/30/19 10:16 Dose: 20 mg - Objective Vital Signs: Vital Signs Temperature 97.6 F 01/30/19 05:00 Pulse Rate 60 01/30/19 05:00 Respiratory Rate 20 01/30/19 05:00 Blood Pressure 119/63 01/30/19 05:00 O2 Sat by Pulse Oximetry (%) 98 01/30/19 00:00 Constitutional: Yes: Well Nourished, Calm Eyes: Yes: WNL HENT: Yes: WNL Neck: Yes: WNL Cardiovascular: Yes: Pulse Irregular, S1, S2 Respiratory: Yes: Diminished, Rales (few bibasilar crackles) Gastrointestinal: Yes: Normal Bowel Sounds, Soft Extremities: Yes: WNL Edema: No Labs: CBC, BMP 01/30/19 05:45 01/30/19 05:45 INR, PTT INR 1.72 (0.83-1.09) H 01/26/19 18:06 - ....Imaging Cat Scan: Report Reviewed, Image Reviewed (bilateral pleural) Problem List - Problems (1) Pulmonary HTN Code(s): I27.20 - PULMONARY HYPERTENSION, UNSPECIFIED (2) Elevated troponin Code(s): R74.8 - ABNORMAL LEVELS OF OTHER SERUM ENZYMES (3) Weakness Code(s): R53.1 - WEAKNESS (4) Malaise Code(s): R53.81 - OTHER MALAISE (5) Atrial fibrillation Code(s): I48.91 - UNSPECIFIED ATRIAL FIBRILLATION Qualifiers: Atrial fibrillation type: paroxysmal Qualified Code(s): I48.0 - Paroxysmal atrial fibrillation (6) HTN (hypertension) Code(s): I10 - ESSENTIAL (PRIMARY) HYPERTENSION (7) Mitral valve regurgitation Code(s): I34.0 - NONRHEUMATIC MITRAL (VALVE) INSUFFICIENCY Assessment/Plan IMP DYSPNEA/WEAKNESS SEVERE PULMONARY HTN ? VALVULAR HD CP ASHD AFIB S/P AV TEJA ABLATION ,S/P PPM HTN DEMENTIA + TROPONIN PLAN CONTINUE AC AMBULATORY O2 SAT TO DETERMINE IF PT IS A CANDIDATE FOR HOME O2 SUPPLEMENTAL O2 ABX PER ID RATE CONTROL PER CARDIOLOGY ? PONCE CHRISTENSEN Problem List - Problems (1) Pulmonary HTN Code(s): I27.20 - PULMONARY HYPERTENSION, UNSPECIFIED (2) Elevated troponin Code(s): R74.8 - ABNORMAL LEVELS OF OTHER SERUM ENZYMES (3) Weakness Code(s): R53.1 - WEAKNESS (4) Malaise Code(s): R53.81 - OTHER MALAISE (5) Atrial fibrillation Code(s): I48.91 - UNSPECIFIED ATRIAL FIBRILLATION Qualifiers: Atrial fibrillation type: paroxysmal Qualified Code(s): I48.0 - Paroxysmal atrial fibrillation (6) HTN (hypertension) Code(s): I10 - ESSENTIAL (PRIMARY) HYPERTENSION (7) Mitral valve regurgitation Code(s): I34.0 - NONRHEUMATIC MITRAL (VALVE) INSUFFICIENCY
--- NOTE | 2019-01-30 11:00 | PN ---
Physical Exam: SUBJECTIVE: Patient seen and examined. Sob stable, no dizziness, no chest pain. Still requiring NC oxygen. OBJECTIVE: Vital Signs Period Temp Pulse Resp BP Sys/Rice Pulse Ox Last 24 Hr 97.6 F-98.2 F 60-75 20-22 100-119/54-72 97-98 Vital Signs Temp 97.6 F 01/30/19 05:00 Pulse 60 01/30/19 05:00 Resp 20 01/30/19 05:00 BP 119/63 01/30/19 05:00 Pulse Ox 98 01/30/19 00:00 Intake & Output 01/29/19 01/29/19 01/30/19 11:59 23:59 11:59 Intake Total 120 400 Balance 120 400 Intake: Oral 120 400 Other: Voiding Method Bedside Commode Toilet Toilet # Unmeasured Voids Void 2 4 4 Bowel Movement Yes # Bowel Movements 1 GENERAL: The patient is awake, alert, and fully oriented, in no acute distress. ENT:moist mucous membranes, NC-3L. LUNGS: reduced breath sounds bilaterally, no wheezes, no crackles HEART: Regular rate and rhythm, S1, S2, systolic murmur 2/6, LSB, RSB non radiating to carotids or axilla ABDOMEN: Soft, nontender, nondistended, normoactive bowel sounds, no guarding, no rebound EXTREMITIES: 2+ pulses, warm, well-perfused, no edema. NEUROLOGICAL: Cranial nerves II through XII grossly intact. Normal speech, gait not observed. PSYCH: Normal mood, normal affect. SKIN: Warm, dry, normal turgor, no rashes or lesions noted Laboratory Results - last 24 hr 01/30/19 01/30/19 05:45 05:45 WBC 8.6 RBC 3.42 L Hgb 10.7 Hct 32.2 L MCV 94.4 MCH 31.2 MCHC 33.1 RDW 14.2 Plt Count 195 MPV 10.2 Absolute Neuts (auto) 6.2 Neutrophils % 71.7 Lymphocytes % 12.3 D Monocytes % 13.6 H Eosinophils % 1.9 Basophils % 0.5 Nucleated RBC % 0 Sodium 140 Potassium 4.2 Chloride 105 Carbon Dioxide 29 Anion Gap 7 L BUN 22.9 H Creatinine 1.1 Est GFR (CKD-EPI)AfAm 53.77 Est GFR (CKD-EPI)NonAf 46.39 Random Glucose 117 H Calcium 8.3 L Magnesium 2.2 Active Medications Generic Name Dose Route Start Last Admin Trade Name Freq PRN Reason Stop Dose Admin Apixaban 2.5 mg 01/27/19 12:30 01/30/19 10:16 Eliquis - PO 2.5 mg BID [facility] Administration Aspirin 81 mg 01/27/19 10:00 01/30/19 10:16 Asa - PO 81 mg DAILY [facility] Administration Atorvastatin Calcium 10 mg 01/27/19 22:00 01/29/19 22:17 Lipitor - PO 10 mg HS [facility] Administration Diltiazem HCl 240 mg 01/28/19 10:00 01/30/19 10:16 Cardizem Cd - PO 240 mg DAILY [facility] Administration Furosemide 40 mg 01/30/19 10:45 Lasix Injection - IVPUSH DAILY [facility] Lisinopril 2.5 mg 01/29/19 10:00 01/30/19 10:16 Prinivil PO 2.5 mg DAILY [facility] Administration Metoprolol Succinate 25 mg 01/27/19 22:00 01/30/19 10:17 Toprol Xl - PO 25 mg BID [facility] Administration Nitroglycerin 0.4 mg 01/27/19 05:59 Nitrostat - SL Q5M PRN FOR CHEST PAIN Pantoprazole Sodium 20 mg 01/27/19 10:00 01/30/19 10:16 Protonix - PO 20 mg DAILY [facility] Administration ASSESSMENT/PLAN: Pt is an 83 yo F with PMHx of HTN, HLD, paroxysmal afib s/p complicated ablation , Afib on eliquis,hx of GI bleed, GERD, s/p PM, former smoker presented from home for SOB for 3 days found to have PH. SOB Possibly in setting of a combination of factors Pt with PH- RVSP 60 CT chest-Pt with mod b/l effusions- will benefit from lasix- cardio on board ( pending official read) Pt will benefit from Sleep study- unable to assess risks as pt says she cannot remember B/l effusions possibly due to HFpEF, give Lasix 40mg iv daily HFpEF EF- 50-60% B/l mod pleural effusions Lasix 40mg iv daily PH Possibly WHO class II- Underlying cardiac pathologies-Prolapse of posterior mitral leaflet/severe MR/LVH Pt denies prior thrombo-embolic dx Hx of Chronic smoking, now quit, no lung dx diagnosis in past Hx of chest pain Cont Nitrostat Paroxysmal Afib hx ASA 81mg daily Eliquis 2.5 bid Toprol xl 25 bid Cont diltiazem HLD Lipitor 10HS HTN Toprol xl 25 bid GERD Cont protonix Visit type - Emergency Visit Emergency Visit: Yes ED Registration Date: 01/30/19 Care time: The patient presented to the Emergency Department on the above date and was hospitalized for further evaluation of their emergent condition. - New Patient This patient is new to me today: Yes Date on this admission: 01/30/19 - Critical Care Critical Care patient: No - Discharge Referral Referred to [facility] Med [facility].C[facility] No ATTENDING PHYSICIAN STATEMENT I saw and evaluated the patient. I reviewed the resident's note and discussed the case with the resident. I agree with the resident's findings and plan as documented. SUBJECTIVE: OBJECTIVE: ASSESSMENT AND PLAN:
[2019-01-30] MEDS: FUROSEMIDE 40 MG/4 ML INJECTABLE VIAL IVPUSH SCH (11:58)
--- NOTE | 2019-01-30 14:51 | PN ---
Physical Exam: SUBJECTIVE: Patient seen and examined; no new complaints. They are stable and afebrile. No SOB, she states that she has severe persisting fatigue. Discussed with ID and cardiology. Will update daughter. The patient has no inidcation for inpatient transfer as she has requested. Now she is saying she does NOT want transfer. Would not be indicated. She will be started on IV diuretics and is doing well; montioring on floor with CV consult. 10 sys ROS done and negative aside from HPI OBJECTIVE: Vital Signs Period Temp Pulse Resp BP Sys/Rice Pulse Ox Last 24 Hr 97.6 F-98.2 F 60-75 20-22 105-119/57-72 97-98 VS, labs, imaging reviewed NAD, AAO, resting in bed NC AT EOMI PERRLA Trachea midline without marked JVD, no LN noted RRR s1/2 no mgr Lungs CTAB, w/ sym exp Unchanged from yesterday; she persists with mild tenderness with mild distention ; no localizations. Skin without new rashes or breakdown Normal muscle tone and moves all 4 ext with no apparent myalgia or impacted ROM. Normal mood, appropriate behavior. Laboratory Results - last 24 hr 01/30/19 01/30/19 05:45 05:45 WBC 8.6 RBC 3.42 L Hgb 10.7 Hct 32.2 L MCV 94.4 MCH 31.2 MCHC 33.1 RDW 14.2 Plt Count 195 MPV 10.2 Absolute Neuts (auto) 6.2 Neutrophils % 71.7 Lymphocytes % 12.3 D Monocytes % 13.6 H Eosinophils % 1.9 Basophils % 0.5 Nucleated RBC % 0 Sodium 140 Potassium 4.2 Chloride 105 Carbon Dioxide 29 Anion Gap 7 L BUN 22.9 H Creatinine 1.1 Est GFR (CKD-EPI)AfAm 53.77 Est GFR (CKD-EPI)NonAf 46.39 Random Glucose 117 H Calcium 8.3 L Magnesium 2.2 Active Medications Generic Name Dose Route Start Last Admin Trade Name Freq PRN Reason Stop Dose Admin Apixaban 2.5 mg 01/27/19 12:30 01/30/19 10:16 Eliquis - PO 2.5 mg BID [facility] Administration Aspirin 81 mg 01/27/19 10:00 01/30/19 10:16 Asa - PO 81 mg DAILY [facility] Administration Atorvastatin Calcium 10 mg 01/27/19 22:00 01/29/19 22:17 Lipitor - PO 10 mg HS [facility] Administration Diltiazem HCl 240 mg 01/28/19 10:00 01/30/19 10:16 Cardizem Cd - PO 240 mg DAILY [facility] Administration Furosemide 40 mg 01/30/19 10:45 01/30/19 11:58 Lasix Injection - IVPUSH 40 mg DAILY [facility] Administration Lisinopril 2.5 mg 01/29/19 10:00 01/30/19 10:16 Prinivil PO 2.5 mg DAILY [facility] Administration Metoprolol Succinate 25 mg 01/27/19 22:00 01/30/19 10:17 Toprol Xl - PO 25 mg BID [facility] Administration Nitroglycerin 0.4 mg 01/27/19 05:59 Nitrostat - SL Q5M PRN FOR CHEST PAIN Pantoprazole Sodium 20 mg 01/27/19 10:00 01/30/19 10:16 Protonix - PO 20 mg DAILY [facility] Administration ASSESSMENT/PLAN: Patient has a complex medical history and sees outpatient specialists for her ongoing GI issues and ongoing cardiovascular issues. 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 As stated above it is difficult to postulate whether the fatigue is resulting from the patient' s underlying severe MR or resulting from the acute cystitis. ID continues to follow and she is maintained on ceftriaxone. Culture results discussed. She has no progressive symptoms and we will continue to trend her CMP. Cardiology Continuing NILA; BP acceptable. Echo was reviewed by cardiology team and stated to not have any major differences from her previous study. She remains afebrile , hemodynamically stable. Awaiting pulmonary HTN consult; appreciated. Problems include: -Ongoing Fatigue -Troponemia likely 2/2 subendocardial ischemia as opposed to plaque related issue -Severe underlying MR -Severe Pulmonary HTN -Continuing eliquis -Acute cystitis on ceftriaxone with ID following. -10mm CBD; MRCP pending. If abnormality noted will copnsult GI. Code status unchanged Visit type - Emergency Visit Emergency Visit: No - New Patient This patient is new to me today: No - Critical Care Critical Care patient: No
[2019-01-30] MEDS: ATORVASTATIN CA 10 MG TABLET (FP) PO SCH (21:01)
[2019-01-31 07:46] LABS: BASO % 0.7 % (0-2.0); EOS % 2.1 % (0-4.5); HEMATOCRIT 33.5 % (32.4-45.2); HEMOGLOBIN 10.9 GM/dL (10.7-15.3); LYMPH % 13.4 % (8-40); MCH 30.7 pg (25.7-33.7); MCHC 32.6 g/dl (32.0-36.0); MEAN CELL VOLUME 94.2 fl (80-96); MEAN PLT VOLUME 10.3 fl (7.5-11.1); MONO % 13.3 % (3.8-10.2); NEUT % 70.5 % (42.8-82.8); PLATELET COUNT 224 K/MM3 (134-434); RBC 3.55 M/mm3 (3.60-5.2); WHITE BLOOD COUNT 8.8 K/mm3 (4.0-10.0)
[2019-01-31 07:52] LABS: ALBUMIN 2.9 g/dl (3.4-5.0); BILIRUBIN,TOTAL 0.4 mg/dL (0.2-1); BLOOD UREA NITROGEN 22.3 mg/dL (7-18); CALCIUM 8.6 mg/dL (8.5-10.1); CREATININE 1.2 mg/dL (0.55-1.3); POTASSIUM 3.8 mmol/L (3.5-5.1); TOT PROT 5.9 g/dl (6.4-8.2)
[2019-01-31] MEDS: APIXABAN 2.5 MG TABLET PO SCH ×2 (09:34→21:59)
[2019-01-31] MEDS: LISINOPRIL 5 MG TABLET (FP) PO SCH (09:40)
[2019-01-31] MEDS: PANTOPRAZOLE 20 MG TABLET (FP) PO SCH (09:41)
[2019-01-31] MEDS: metoPROLOL SUCCINATE 25 MG TAB.SR.24H (FP) PO SCH ×2 (09:41→21:59)
--- NOTE | 2019-01-31 10:35 | PN ---
Teaching Attending Note Name of Resident: Mercedes Abdullahi ATTENDING PHYSICIAN STATEMENT I saw and evaluated the patient. I reviewed the resident's note and discussed the case with the resident. I agree with the resident's findings and plan as documented. SUBJECTIVE: OBJECTIVE: ASSESSMENT AND PLAN: Problem List - Problems (1) Pulmonary HTN Code(s): I27.20 - PULMONARY HYPERTENSION, UNSPECIFIED (2) Elevated troponin Code(s): R74.8 - ABNORMAL LEVELS OF OTHER SERUM ENZYMES (3) Weakness Code(s): R53.1 - WEAKNESS (4) Malaise Code(s): R53.81 - OTHER MALAISE (5) Atrial fibrillation Code(s): I48.91 - UNSPECIFIED ATRIAL FIBRILLATION Qualifiers: Atrial fibrillation type: paroxysmal Qualified Code(s): I48.0 - Paroxysmal atrial fibrillation (6) HTN (hypertension) Code(s): I10 - ESSENTIAL (PRIMARY) HYPERTENSION (7) Mitral valve regurgitation Code(s): I34.0 - NONRHEUMATIC MITRAL (VALVE) INSUFFICIENCY
--- NOTE | 2019-01-31 10:41 | PN ---
Progress Note, Physician History of Present Illness: pulmonary alert,less dyspneic,-cp - Current Medication List Current Medications: Active Medications Apixaban (Eliquis -) 2.5 mg PO BID [facility] Last Admin: 01/31/19 09:34 Dose: Not Given Aspirin (Asa -) 81 mg PO DAILY [facility] Last Admin: 01/30/19 10:16 Dose: 81 mg Atorvastatin Calcium (Lipitor -) 10 mg PO HS [facility] Last Admin: 01/30/19 21:01 Dose: 10 mg Diltiazem HCl (Cardizem Cd -) 240 mg PO DAILY [facility] Last Admin: 01/31/19 09:40 Dose: 240 mg Furosemide (Lasix Injection -) 40 mg IVPUSH DAILY [facility] Last Admin: 01/30/19 11:58 Dose: 40 mg Lisinopril (Prinivil) 2.5 mg PO DAILY [facility] Last Admin: 01/31/19 09:40 Dose: 2.5 mg Metoprolol Succinate (Toprol Xl -) 25 mg PO BID [facility] Last Admin: 01/31/19 09:41 Dose: 25 mg Nitroglycerin (Nitrostat -) 0.4 mg SL Q5M PRN PRN Reason: FOR CHEST PAIN Pantoprazole Sodium (Protonix -) 20 mg PO DAILY [facility] Last Admin: 01/31/19 09:41 Dose: 20 mg - Objective Vital Signs: Vital Signs Temperature 97.6 F 01/31/19 06:00 Pulse Rate 68 01/31/19 10:00 Respiratory Rate 18 01/31/19 10:00 Blood Pressure 113/68 01/31/19 10:00 O2 Sat by Pulse Oximetry (%) 96 01/30/19 22:00 Constitutional: Yes: Well Nourished, Calm Eyes: Yes: WNL HENT: Yes: WNL Neck: Yes: WNL Cardiovascular: Yes: Regular Rate and Rhythm, S1, S2 Respiratory: Yes: Diminished Gastrointestinal: Yes: Normal Bowel Sounds, Soft Extremities: Yes: WNL Edema: No Labs: CBC, BMP 01/31/19 06:45 01/31/19 06:45 INR, PTT INR 1.72 (0.83-1.09) H 01/26/19 18:06 Problem List - Problems (1) Pulmonary HTN Code(s): I27.20 - PULMONARY HYPERTENSION, UNSPECIFIED (2) Elevated troponin Code(s): R74.8 - ABNORMAL LEVELS OF OTHER SERUM ENZYMES (3) Weakness Code(s): R53.1 - WEAKNESS (4) Malaise Code(s): R53.81 - OTHER MALAISE (5) Atrial fibrillation Code(s): I48.91 - UNSPECIFIED ATRIAL FIBRILLATION Qualifiers: Atrial fibrillation type: paroxysmal Qualified Code(s): I48.0 - Paroxysmal atrial fibrillation (6) HTN (hypertension) Code(s): I10 - ESSENTIAL (PRIMARY) HYPERTENSION (7) Mitral valve regurgitation Code(s): I34.0 - NONRHEUMATIC MITRAL (VALVE) INSUFFICIENCY Assessment/Plan IMP DYSPNEA/WEAKNESS IMPROVING SEVERE PULMONARY HTN ? VALVULAR HD CP ASHD AFIB S/P AV TEJA ABLATION ,S/P PPM HTN DEMENTIA + TROPONIN PLAN CONTINUE AC AMBULATORY O2 SAT TO DETERMINE IF PT IS A CANDIDATE FOR HOME O2 SUPPLEMENTAL O2 RATE CONTROL PER CARDIOLOGY PONCE CHRISTENSEN Problem List - Problems (1) Pulmonary HTN Code(s): I27.20 - PULMONARY HYPERTENSION, UNSPECIFIED (2) Elevated troponin Code(s): R74.8 - ABNORMAL LEVELS OF OTHER SERUM ENZYMES (3) Weakness Code(s): R53.1 - WEAKNESS (4) Malaise Code(s): R53.81 - OTHER MALAISE (5) Atrial fibrillation Code(s): I48.91 - UNSPECIFIED ATRIAL FIBRILLATION Qualifiers: Atrial fibrillation type: paroxysmal Qualified Code(s): I48.0 - Paroxysmal atrial fibrillation (6) HTN (hypertension) Code(s): I10 - ESSENTIAL (PRIMARY) HYPERTENSION (7) Mitral valve regurgitation Code(s): I34.0 - NONRHEUMATIC MITRAL (VALVE) INSUFFICIENCY
--- NOTE | 2019-01-31 10:47 | PN ---
Progress Note (short form) - Note Progress Note: s: stable fatigue. no chest pain, palps, dizziness Current Medications Apixaban (Eliquis -) 2.5 mg PO BID [facility] Last Admin: 01/31/19 09:34 Dose: Not Given Aspirin (Asa -) 81 mg PO DAILY [facility] Last Admin: 01/30/19 10:16 Dose: 81 mg Atorvastatin Calcium (Lipitor -) 10 mg PO HS [facility] Last Admin: 01/30/19 21:01 Dose: 10 mg Diltiazem HCl (Cardizem Cd -) 240 mg PO DAILY [facility] Last Admin: 01/31/19 09:40 Dose: 240 mg Furosemide (Lasix Injection -) 40 mg IVPUSH DAILY [facility] Last Admin: 01/30/19 11:58 Dose: 40 mg Lisinopril (Prinivil) 2.5 mg PO DAILY [facility] Last Admin: 01/31/19 09:40 Dose: 2.5 mg Metoprolol Succinate (Toprol Xl -) 25 mg PO BID [facility] Last Admin: 01/31/19 09:41 Dose: 25 mg Nitroglycerin (Nitrostat -) 0.4 mg SL Q5M PRN PRN Reason: FOR CHEST PAIN Pantoprazole Sodium (Protonix -) 20 mg PO DAILY [facility] Last Admin: 01/31/19 09:41 Dose: 20 mg Vital Signs Period Temp Pulse Resp BP Sys/Rice Pulse Ox Last 24 Hr 97.6 F-98.1 F 68-75 18-20 103-124/60-70 96 Constitutional: Yes: Well Nourished, No Distress, Calm Cardiovascular: Yes: Regular Rate and Rhythm, Murmur (loud HSM apex to L axilla) , S1, S2. No: JVD, Gallop Respiratory: Yes: Regular, CTA Bilaterally. No: Accessory Muscle Use, Rales, Wheezes Extremities: No: Cold Edema: No Neurological: Yes: Alert. No: Seizure Psychiatric: No: Agitated Assessment/Plan Echo report from 12/07/18 reviewed: Normal LVEF, LAE, Severe MR w/ posterior leaflet prolapse. Severe PHTN Echo here 01/26: similar findings tele: NSR, PVCs Assessment/Plan IMP: -Generalized weakness, possible recurrent UTI triggering worsening of chronic cognitive dysfx --Chronic cognitive dysfx/progressive dementia followed by Neuro --Recent frequent UTIs --PAF s/p PPM --Chronic mitral regurgitation, worsening as per daughter --Transaminitis--? sec to statin --known h/o non-cardiac CP, again with atypical CP here. ECG with new nonspecific ST-T changes. indeterminate TnIs, flat trend = not c/w ACS. REC: - per Dr. Lamas d/w her mechanical sound technician Dr. Cam - unclear if fatigue 2/ 2 MR/PHTN vs recurrent UTI - no ischemia q/u planned in d/w dtr (see prior notes). no more cp. observe - severe MR with no signs of HF here, including lungs clear. MV intervention being deferred by Dr. Cam given pt's progressive decline--outpt f/u with him rec'd - Echo findings here similar to prior 11/2018 - nl LV function, severe MR, severe PHTN - manage UTI per primary - cont eliquis - low dose NILA added for afterload reduction which may help with MR, BP stable - transaminitis resolved with holding statin here (note: was not diuresed)-- cont holding - CT chest bilat small-moderate effusions - on lasix 40 mg IV daily, monitor Cr , lytes, daily weights, BP - MRCP today, dilated CBD d/c tele
[2019-01-31] MEDS: FUROSEMIDE 40 MG/4 ML INJECTABLE VIAL IVPUSH SCH (12:08)
--- NOTE | 2019-01-31 13:03 | PN ---
Progress Note, Physician History of Present Illness: stable no new issues - Current Medication List Current Medications: Active Medications Apixaban (Eliquis -) 2.5 mg PO BID [facility] Last Admin: 01/31/19 09:34 Dose: Not Given Aspirin (Asa -) 81 mg PO DAILY [facility] Last Admin: 01/30/19 10:16 Dose: 81 mg Atorvastatin Calcium (Lipitor -) 10 mg PO HS [facility] Last Admin: 01/30/19 21:01 Dose: 10 mg Diltiazem HCl (Cardizem Cd -) 240 mg PO DAILY [facility] Last Admin: 01/31/19 09:40 Dose: 240 mg Furosemide (Lasix Injection -) 40 mg IVPUSH DAILY [facility] Last Admin: 01/31/19 12:08 Dose: 40 mg Lisinopril (Prinivil) 2.5 mg PO DAILY [facility] Last Admin: 01/31/19 09:40 Dose: 2.5 mg Metoprolol Succinate (Toprol Xl -) 25 mg PO BID [facility] Last Admin: 01/31/19 09:41 Dose: 25 mg Nitroglycerin (Nitrostat -) 0.4 mg SL Q5M PRN PRN Reason: FOR CHEST PAIN Pantoprazole Sodium (Protonix -) 20 mg PO DAILY [facility] Last Admin: 01/31/19 09:41 Dose: 20 mg - Objective Vital Signs: Vital Signs Temperature 97.6 F 01/31/19 06:00 Pulse Rate 68 01/31/19 10:00 Respiratory Rate 18 01/31/19 10:00 Blood Pressure 113/68 01/31/19 10:00 O2 Sat by Pulse Oximetry (%) 96 01/30/19 22:00 Constitutional: Yes: No Distress, Calm Cardiovascular: Yes: S1, S2 Respiratory: Yes: Regular, CTA Bilaterally Gastrointestinal: Yes: Normal Bowel Sounds, Soft Musculoskeletal: Yes: WNL Extremities: Yes: WNL Neurological: Yes: Alert, Oriented Psychiatric: Yes: Alert, Oriented Labs: CBC, BMP 01/31/19 06:45 01/31/19 06:45 INR, PTT INR 1.72 (0.83-1.09) H 01/26/19 18:06 Assessment/Plan 83 year old female with PMH significant for AFib, MVR, dementia, HTN, Anemia, and HLD. She presented to the ER with complaints of chest pain for the past 1 day and generalized weakness for the past 2 days. Chest pain Hx of bleeding Hx of AFib Transaminitis weakness patient has been started on ceftriaxone plan monitor wait for all results nutrition physio rest as per the team
--- NOTE | 2019-01-31 13:08 | PN ---
Progress Note, Physician History of Present Illness: stable no new issues - Current Medication List Current Medications: Active Medications Apixaban (Eliquis -) 2.5 mg PO BID [facility] Last Admin: 01/31/19 09:34 Dose: Not Given Aspirin (Asa -) 81 mg PO DAILY [facility] Last Admin: 01/30/19 10:16 Dose: 81 mg Atorvastatin Calcium (Lipitor -) 10 mg PO HS [facility] Last Admin: 01/30/19 21:01 Dose: 10 mg Diltiazem HCl (Cardizem Cd -) 240 mg PO DAILY [facility] Last Admin: 01/31/19 09:40 Dose: 240 mg Furosemide (Lasix Injection -) 40 mg IVPUSH DAILY [facility] Last Admin: 01/31/19 12:08 Dose: 40 mg Lisinopril (Prinivil) 2.5 mg PO DAILY [facility] Last Admin: 01/31/19 09:40 Dose: 2.5 mg Metoprolol Succinate (Toprol Xl -) 25 mg PO BID [facility] Last Admin: 01/31/19 09:41 Dose: 25 mg Nitroglycerin (Nitrostat -) 0.4 mg SL Q5M PRN PRN Reason: FOR CHEST PAIN Pantoprazole Sodium (Protonix -) 20 mg PO DAILY [facility] Last Admin: 01/31/19 09:41 Dose: 20 mg - Objective Vital Signs: Vital Signs Temperature 97.6 F 01/31/19 06:00 Pulse Rate 68 01/31/19 10:00 Respiratory Rate 18 01/31/19 10:00 Blood Pressure 113/68 01/31/19 10:00 O2 Sat by Pulse Oximetry (%) 96 01/30/19 22:00 Constitutional: Yes: No Distress, Calm Cardiovascular: Yes: S1, S2 Respiratory: Yes: Regular, CTA Bilaterally Gastrointestinal: Yes: Normal Bowel Sounds, Soft Musculoskeletal: Yes: WNL Extremities: Yes: WNL Neurological: Yes: Alert, Oriented Psychiatric: Yes: Alert, Oriented Labs: CBC, BMP 01/31/19 06:45 01/31/19 06:45 INR, PTT INR 1.72 (0.83-1.09) H 01/26/19 18:06 Assessment/Plan 83 year old female with PMH significant for AFib, MVR, dementia, HTN, Anemia, and HLD. She presented to the ER with complaints of chest pain for the past 1 day and generalized weakness for the past 2 days. Chest pain Hx of bleeding Hx of AFib Transaminitis weakness patient has been started on ceftriaxone plan monitor nutrition physio rest as per the team
[2019-01-31] MEDS: ASPIRIN 81 MG CHEWABLE TABLETS PO SCH (14:41)
[2019-01-31] MEDS: ATORVASTATIN CA 10 MG TABLET (FP) PO SCH (21:59)
--- NOTE | 2019-01-31 22:34 | PN ---
Progress Note (short form) - Note Progress Note: HPI: Pt today complains that she is thirsty, however otherwise does not complain of anything else. Patient remains alert, awake, and oriented x2 and has moments of lucidity with orientation x3. PE: GEN: NAD, awake, alert, oriented x2 HEENT: NC/AT, sclera anicteric, dry mucosa LUNGS: Diminished breath sounds at bases b/l. CARD: Irregularly irregular rhythm with controlled rate. 4/6 systolic murmur appreciated. ABD: Soft, NT/ND, normoactive BS EXT: No edema appreciated A/P Fatigue Severe pulmonary HTN Type 2 Severe Mitral regurgitation Transaminitis 2/2 to statin use (resolved) Demand ischemia Enlarged CBD HTN HLD Paroxysmal Atrial fibrillation --Likely fatigue is 2/2 to severe pulmonary HTN --All data consultant recommendations --Dr. Cam (pt's outpatient control chemist) has deferred valvular intervention 2/2 to progressive decline --Continue Toprol XL 25mg BID and Cardizem 240mg qdaily given adequate rate control --Continue Eliquis 2.5mg BID --Will continue Lasix today and assess respiratory status tomorrow with possible change to PO vs. discontinue --MRCP cancelled due to patient having metal pacemaker of unknown type --Spoke to Dr. Chand who was unconcerned with CBD amount in setting of normal LFTs; continue to monitor and he will f/u in outpatient setting --Can hold off on ABX as patient received treatment and remains afebrile without white count Spoke to daughter today about long-term plans for patient. Recommended SNF placement for rehab which daughter seemed amenable to, however was more preferable to extending home PT throughout the week with continued home health aide. Pt's daughter concerned that the longer the pt and her (also with dementia) are apart and disoriented that they are under distress and will worsen mentally. Pt's daughter also concerned about adequate nutrition in her mother for which I recommended manager managed backup services can recommend adequate nutrition plan Code status: Unchanged Dispo: Awaiting placement/dispo pending Case discussed with Dr. Agustin Abrams, DO - IM PGY-3
[2019-02-01 07:23] LABS: BLOOD UREA NITROGEN 23.6 mg/dL (7-18); CALCIUM 8.2 mg/dL (8.5-10.1); CREATININE 1.2 mg/dL (0.55-1.3); POTASSIUM 3.8 mmol/L (3.5-5.1)
[2019-02-01 07:29] VITALS: TEMP 97.5
--- NOTE | 2019-02-01 08:51 | PN ---
Progress Note (short form) - Note Progress Note: HPI: Pt eating breakfast with only complaint of fatigue. Pt would like to go home and would be agreeable to physical therapy at home. Otherwise denies shortness of breath, chest pain, palpitations, lightheadedness/dizziness, headaches, abdominal pain, dysuria, and diarrhea. Vital Signs Period Temp Pulse Resp BP Sys/Rice Pulse Ox Last 24 Hr 97.5 F-98.1 F 58-71 17-20 93-130/57-70 93-95 Active Medications Apixaban (Eliquis -) 2.5 mg PO BID [facility] Last Admin: 01/31/19 21:59 Dose: 2.5 mg Aspirin (Asa -) 81 mg PO DAILY [facility] Last Admin: 01/31/19 14:41 Dose: 81 mg Atorvastatin Calcium (Lipitor -) 10 mg PO HS [facility] Last Admin: 01/31/19 21:59 Dose: 10 mg Diltiazem HCl (Cardizem Cd -) 240 mg PO DAILY [facility] Last Admin: 01/31/19 09:40 Dose: 240 mg Furosemide (Lasix -) 40 mg PO DAILY [facility] Lisinopril (Prinivil) 2.5 mg PO DAILY [facility] Last Admin: 01/31/19 09:40 Dose: 2.5 mg Metoprolol Succinate (Toprol Xl -) 25 mg PO BID [facility] Last Admin: 01/31/19 21:59 Dose: 25 mg Nitroglycerin (Nitrostat -) 0.4 mg SL Q5M PRN PRN Reason: FOR CHEST PAIN Pantoprazole Sodium (Protonix -) 20 mg PO DAILY [facility] Last Admin: 01/31/19 09:41 Dose: 20 mg PE: GEN: NAD, awake, alert, oriented x3, sitting up eating breakfast HEENT: NC/AT, DIMAS, sclera anicteric, MMM LUNGS: Increased aeration down to bases compared to previous exam. No wheezing noted. No accessory muscle use, On RA CARD: Irregularly irregular rhythm with rate 62bpm. 4/6 crescendo-decrescendo murmur noted most notably at apex ABD: Soft, NT/Nd, normoactive BS, no hepatomegaly Neuro: Lower extremity strength 5/5 b/l in knee flexion/extension and dorsal/ plantar flexion. Sensation intact in b/l lower extremities EXT: No edema appreciated, 2+ DP pulses b/l Skin: No rashes or lesions A/P Fatigue Severe pulmonary HTN Type 2 Severe Mitral regurgitation Transaminitis 2/2 to statin use (resolved) Demand ischemia Enlarged CBD HTN HLD Paroxysmal Atrial fibrillation --Likely fatigue is 2/2 to severe pulmonary HTN --All organizational effectiveness consultant recommendations --Dr. Cam (pt's outpatient grinding machine operator) has deferred valvular intervention 2/2 to progressive decline --Continue Toprol XL 25mg BID and Cardizem 240mg qdaily given adequate rate control; currently controlled --Continue Eliquis 2.5mg BID --Changed to Lasix 40mg PO qdaily from IV today as pt's bicarb increasing and with more aeration down to bases today on PE --Unable to obtain MRCP 2/2 to PPM unknown type; will f/u with Dr. Chand on OP basis --Spoke to Dr. Chand who was unconcerned with CBD amount in setting of normal LFTs; continue to monitor and he will f/u in outpatient setting Will discuss with CM/Social work about outpatient physical therapy services at home considering pt would like to go home. FEN: Fluids: PO only Electrolyte abnormalities: None Nutrition: Sodium-controlled PPX: DVT - Already on Eliquis 2.5mg BID PO GI - On PPI already Dispo: Awaiting placement/dispo pending Jose Abrams DO - IM PGY-3
--- NOTE | 2019-02-01 08:54 | PN ---
Teaching Attending Note Name of Resident: Jose Abrams ATTENDING PHYSICIAN STATEMENT I saw and evaluated the patient. I reviewed the resident's note and discussed the case with the resident. I agree with the resident's findings and plan as documented with exceptions below. SUBJECTIVE: Patient seen and examined. no complaints, eager to go home. OBJECTIVE: Vital Signs Period Temp Pulse Resp BP Sys/Rice Pulse Ox Last 24 Hr 97.5 F-98.1 F 58-71 17-20 93-130/57-70 93-95 Intake & Output 01/29/19 01/30/19 01/31/19 02/01/19 23:59 23:59 23:59 23:59 Intake Total 520 700 580 130 Balance 520 700 580 130 Home Medications Medication Instructions Recorded Diltiazem HCl [Cartia Xt] 240 mg PO DAILY 06/12/18 Esomeprazole Magnesium 40 mg PO DAILY 06/12/18 Fluoxetine HCl [Prozac] 20 mg PO DAILY 06/12/18 Sucralfate [Carafate -] 1 gm PO TID 06/12/18 Apixaban [Eliquis] 2.5 mg PO BID 10/30/18 Atorvastatin Ca [Lipitor] 10 mg PO HS 10/30/18 Donepezil HCl 10 mg PO DAILY 10/30/18 Memantine HCl 10 mg PO BID 10/30/18 Cyanocobalamin (Vitamin B-12) 5,000 mcg PO DAILY 01/27/19 [Vitamin B12] Iron 325 mg PO BID 01/27/19 Metoprolol Succinate 25 mg PO BID 01/27/19 Lisinopril [Prinivil] 2.5 mg PO DAILY #30 tablet 01/31/19 Active Medications Apixaban (Eliquis -) 2.5 mg PO BID [facility] Last Admin: 01/31/19 21:59 Dose: 2.5 mg Aspirin (Asa -) 81 mg PO DAILY [facility] Last Admin: 01/31/19 14:41 Dose: 81 mg Atorvastatin Calcium (Lipitor -) 10 mg PO HS [facility] Last Admin: 01/31/19 21:59 Dose: 10 mg Diltiazem HCl (Cardizem Cd -) 240 mg PO DAILY [facility] Last Admin: 01/31/19 09:40 Dose: 240 mg Furosemide (Lasix -) 40 mg PO DAILY [facility] Lisinopril (Prinivil) 2.5 mg PO DAILY [facility] Last Admin: 01/31/19 09:40 Dose: 2.5 mg Metoprolol Succinate (Toprol Xl -) 25 mg PO BID [facility] Last Admin: 01/31/19 21:59 Dose: 25 mg Nitroglycerin (Nitrostat -) 0.4 mg SL Q5M PRN PRN Reason: FOR CHEST PAIN Pantoprazole Sodium (Protonix -) 20 mg PO DAILY [facility] Last Admin: 01/31/19 09:41 Dose: 20 mg Laboratory Results - last 24 hr 02/01/19 06:25 Sodium 140 Potassium 3.8 Chloride 103 Carbon Dioxide 30 Anion Gap 7 L BUN 23.6 H Creatinine 1.2 Est GFR (CKD-EPI)AfAm 48.40 Est GFR (CKD-EPI)NonAf 41.76 Random Glucose 96 Calcium 8.2 L Microbiology 01/27/19 17:45 Blood - Peripheral Venous Blood Culture - Preliminary NO GROWTH OBTAINED AFTER 96 HOURS, INCUBATION TO CONTINUE FOR 1 DAYS. 01/27/19 17:30 Blood - Peripheral Venous Blood Culture - Preliminary NO GROWTH OBTAINED AFTER 96 HOURS, INCUBATION TO CONTINUE FOR 1 DAYS. 01/28/19 10:09 Urine - Urine Clean Catch Urine Culture - Final NO GROWTH OBTAINED 2D echo resutls reviewed CT chest results reviewed ASSESSMENT AND PLAN: 83 yof with PMHx of progressive dementia, recent frequent UTIs, PAF s/p PPM, Chronic mitral regurgitation, Transaminitis admitted with chest pain and elevated troponin. -Chest pain, resolved -Elevated troponin, flat trend, less likely ACS -Bilateral pleural effusions -Severe Mitral regurgitation -Moderate to severe tricuspid regurgitation -Severe pulmonary HTN -Lower uncomplicated UTI/cystitis -Transaminitis -Progressive dementia Plan: Cardiology/pulmonary/ID input noted. Lasix changed to PO. trop flat trend, unlikely ACS 2D echo/CT chest results reviewed LFts improved. Abdominal US resulted noted. Continue Apixaban, ASA/statin/Diltiazem/metoprolol. Started on low dose ACEi, will need to hold if ongoing soft BP, monitor for now. Off ceftriaxone, urine cx neg. PT eval noted patient has a 24 hour aide, and aide at bedside. Patient wants to go home. in agreement. discussed with Dr. monroe, plan for dc on lasix 20 mg po and lisinopril 2.5 mg po daily. D/c home with services today. discussed with patient and and aide at bedside, nursing and case management.
[2019-02-01] MEDS: metoPROLOL SUCCINATE 25 MG TAB.SR.24H (FP) PO SCH (09:55)
[2019-02-01] MEDS: APIXABAN 2.5 MG TABLET PO SCH (09:55)
[2019-02-01] MEDS: PANTOPRAZOLE 20 MG TABLET (FP) PO SCH (09:55)
[2019-02-01] MEDS: LISINOPRIL 5 MG TABLET (FP) PO SCH (09:55)
[2019-02-01] MEDS: ASPIRIN 81 MG CHEWABLE TABLETS PO SCH (09:55)
[2019-02-01] MEDS ORDERED: FUROSEMIDE 40 MG TABLET (FP) PO SCH (10:00)
[2019-02-01 10:16] VITALS: BP 126/72; PULSE 62
--- NOTE | 2019-02-01 10:48 | PN ---
Progress Note, Physician History of Present Illness: PULMONARY ALERT,COMFORTABLE AT REST ,+ NICOLE - Current Medication List Current Medications: Active Medications Apixaban (Eliquis -) 2.5 mg PO BID [facility] Last Admin: 02/01/19 09:55 Dose: 2.5 mg Aspirin (Asa -) 81 mg PO DAILY [facility] Last Admin: 02/01/19 09:55 Dose: 81 mg Atorvastatin Calcium (Lipitor -) 10 mg PO HS [facility] Last Admin: 01/31/19 21:59 Dose: 10 mg Diltiazem HCl (Cardizem Cd -) 240 mg PO DAILY [facility] Last Admin: 02/01/19 09:55 Dose: 240 mg Furosemide (Lasix -) 40 mg PO DAILY [facility] Last Admin: 02/01/19 09:55 Dose: 40 mg Lisinopril (Prinivil) 2.5 mg PO DAILY [facility] Last Admin: 02/01/19 09:55 Dose: 2.5 mg Metoprolol Succinate (Toprol Xl -) 25 mg PO BID [facility] Last Admin: 02/01/19 09:55 Dose: 25 mg Nitroglycerin (Nitrostat -) 0.4 mg SL Q5M PRN PRN Reason: FOR CHEST PAIN Pantoprazole Sodium (Protonix -) 20 mg PO DAILY [facility] Last Admin: 02/01/19 09:55 Dose: 20 mg - Objective Vital Signs: Vital Signs Temperature 97.5 F L 02/01/19 06:00 Pulse Rate 62 02/01/19 10:00 Respiratory Rate 18 02/01/19 10:00 Blood Pressure 126/72 02/01/19 10:00 O2 Sat by Pulse Oximetry (%) 95 02/01/19 09:00 Constitutional: Yes: Well Nourished, Calm Eyes: Yes: WNL HENT: Yes: WNL Neck: Yes: WNL Cardiovascular: Yes: Pulse Irregular, S1, S2 Respiratory: Yes: Diminished Gastrointestinal: Yes: Normal Bowel Sounds, Soft Extremities: Yes: WNL Edema: No Labs: CBC, BMP 01/31/19 06:45 02/01/19 06:25 INR, PTT INR 1.72 (0.83-1.09) H 01/26/19 18:06 - ....Imaging Cat Scan: Report Reviewed, Image Reviewed Problem List - Problems (1) Pulmonary HTN Code(s): I27.20 - PULMONARY HYPERTENSION, UNSPECIFIED (2) Elevated troponin Code(s): R74.8 - ABNORMAL LEVELS OF OTHER SERUM ENZYMES (3) Weakness Code(s): R53.1 - WEAKNESS (4) Malaise Code(s): R53.81 - OTHER MALAISE (5) Atrial fibrillation Code(s): I48.91 - UNSPECIFIED ATRIAL FIBRILLATION Qualifiers: Atrial fibrillation type: paroxysmal Qualified Code(s): I48.0 - Paroxysmal atrial fibrillation (6) HTN (hypertension) Code(s): I10 - ESSENTIAL (PRIMARY) HYPERTENSION (7) Mitral valve regurgitation Code(s): I34.0 - NONRHEUMATIC MITRAL (VALVE) INSUFFICIENCY Assessment/Plan IMP DYSPNEA/WEAKNESS IMPROVING SEVERE PULMONARY HTN ? VALVULAR HD CP ASHD AFIB S/P AV TEJA ABLATION ,S/P PPM HTN DEMENTIA + TROPONIN GGO R HILUM ? INFLAMMATORY,INFECTIOUS,?NEOPLASTIC PLAN CONTINUE AC AMBULATORY O2 SAT TO DETERMINE IF PT IS A CANDIDATE FOR HOME O2 SUPPLEMENTAL O2 RATE CONTROL PER CARDIOLOGY LASIX F/U CHEST CT 6-[address] CHRISTENSEN Problem List - Problems (1) Pulmonary HTN Code(s): I27.20 - PULMONARY HYPERTENSION, UNSPECIFIED (2) Elevated troponin Code(s): R74.8 - ABNORMAL LEVELS OF OTHER SERUM ENZYMES (3) Weakness Code(s): R53.1 - WEAKNESS (4) Malaise Code(s): R53.81 - OTHER MALAISE (5) Atrial fibrillation Code(s): I48.91 - UNSPECIFIED ATRIAL FIBRILLATION Qualifiers: Atrial fibrillation type: paroxysmal Qualified Code(s): I48.0 - Paroxysmal atrial fibrillation (6) HTN (hypertension) Code(s): I10 - ESSENTIAL (PRIMARY) HYPERTENSION (7) Mitral valve regurgitation Code(s): I34.0 - NONRHEUMATIC MITRAL (VALVE) INSUFFICIENCY
--- NOTE | 2019-02-01 10:59 | PN ---
Progress Note (short form) - Note Progress Note: s: no chest pain, palps, dizziness, dyspnea. Current Medications Apixaban (Eliquis -) 2.5 mg PO BID [facility] Last Admin: 02/01/19 09:55 Dose: 2.5 mg Aspirin (Asa -) 81 mg PO DAILY [facility] Last Admin: 02/01/19 09:55 Dose: 81 mg Atorvastatin Calcium (Lipitor -) 10 mg PO HS [facility] Last Admin: 01/31/19 21:59 Dose: 10 mg Diltiazem HCl (Cardizem Cd -) 240 mg PO DAILY [facility] Last Admin: 02/01/19 09:55 Dose: 240 mg Furosemide (Lasix -) 40 mg PO DAILY [facility] Last Admin: 02/01/19 09:55 Dose: 40 mg Lisinopril (Prinivil) 2.5 mg PO DAILY [facility] Last Admin: 02/01/19 09:55 Dose: 2.5 mg Metoprolol Succinate (Toprol Xl -) 25 mg PO BID [facility] Last Admin: 02/01/19 09:55 Dose: 25 mg Nitroglycerin (Nitrostat -) 0.4 mg SL Q5M PRN PRN Reason: FOR CHEST PAIN Pantoprazole Sodium (Protonix -) 20 mg PO DAILY [facility] Last Admin: 02/01/19 09:55 Dose: 20 mg Vital Signs Period Temp Pulse Resp BP Sys/Rice Pulse Ox Last 24 Hr 97.5 F-98.1 F 58-71 17-18 93-130/57-72 93-95 Constitutional: Yes: Well Nourished, No Distress, Calm Cardiovascular: Yes: Regular Rate and Rhythm, Murmur (loud HSM apex to L axilla) , S1, S2. No: JVD, Gallop Respiratory: Yes: Regular, CTA Bilaterally. No: Accessory Muscle Use, Rales, Wheezes Extremities: No: Cold Edema: No Neurological: Yes: Alert. No: Seizure Psychiatric: No: Agitated Assessment/Plan Echo report from 12/07/18 reviewed: Normal LVEF, LAE, Severe MR w/ posterior leaflet prolapse. Severe PHTN Echo here 01/26: similar findings tele: NSR, PVCs Assessment/Plan IMP: -Generalized weakness, possible recurrent UTI triggering worsening of chronic cognitive dysfx --Chronic cognitive dysfx/progressive dementia followed by Neuro --Recent frequent UTIs --PAF s/p PPM --Chronic mitral regurgitation, worsening as per daughter --Transaminitis--? sec to statin --known h/o non-cardiac CP, again with atypical CP here. ECG with new nonspecific ST-T changes. indeterminate TnIs, flat trend = not c/w ACS. REC: - per Dr. Lamas d/w her jewelry jobber Dr. Cam - unclear if fatigue 2/ 2 MR/PHTN vs recurrent UTI - no ischemia w/u planned in d/w dtr (see prior notes). no more cp. observe - severe MR with no signs of HF here, including lungs clear. MV intervention being deferred by Dr. Cam given pt's progressive decline--outpt f/u with him rec'd - Echo findings here similar to prior 11/2018 - nl LV function, severe MR, severe PHTN - manage UTI per primary - cont eliquis - low dose NILA added for afterload reduction which may help with MR, BP stable - transaminitis resolved with holding statin here - cont holding - CT chest bilat small-moderate effusions - was on lasix 40 mg IV daily, now transitioned to PO lasix 40 mg daily, continue - stable for dc from cardiac perspective
--- NOTE | 2019-02-01 12:44 | PN ---
Progress Note, Physician History of Present Illness: stable no new issues - Current Medication List Current Medications: Active Medications Apixaban (Eliquis -) 2.5 mg PO BID [facility] Last Admin: 02/01/19 09:55 Dose: 2.5 mg Aspirin (Asa -) 81 mg PO DAILY [facility] Last Admin: 02/01/19 09:55 Dose: 81 mg Atorvastatin Calcium (Lipitor -) 10 mg PO HS [facility] Last Admin: 01/31/19 21:59 Dose: 10 mg Diltiazem HCl (Cardizem Cd -) 240 mg PO DAILY [facility] Last Admin: 02/01/19 09:55 Dose: 240 mg Furosemide (Lasix -) 40 mg PO DAILY [facility] Last Admin: 02/01/19 09:55 Dose: 40 mg Lisinopril (Prinivil) 2.5 mg PO DAILY [facility] Last Admin: 02/01/19 09:55 Dose: 2.5 mg Metoprolol Succinate (Toprol Xl -) 25 mg PO BID [facility] Last Admin: 02/01/19 09:55 Dose: 25 mg Nitroglycerin (Nitrostat -) 0.4 mg SL Q5M PRN PRN Reason: FOR CHEST PAIN Pantoprazole Sodium (Protonix -) 20 mg PO DAILY [facility] Last Admin: 02/01/19 09:55 Dose: 20 mg - Objective Vital Signs: Vital Signs Temperature 97.5 F L 02/01/19 06:00 Pulse Rate 62 02/01/19 10:00 Respiratory Rate 18 02/01/19 10:00 Blood Pressure 126/72 02/01/19 10:00 O2 Sat by Pulse Oximetry (%) 95 02/01/19 09:00 Constitutional: Yes: No Distress, Calm Cardiovascular: Yes: S1, S2 Respiratory: Yes: Regular, CTA Bilaterally Gastrointestinal: Yes: Normal Bowel Sounds, Soft Musculoskeletal: Yes: WNL Extremities: Yes: WNL Neurological: Yes: Alert, Oriented Psychiatric: Yes: Alert, Oriented Labs: CBC, BMP 01/31/19 06:45 02/01/19 06:25 INR, PTT INR 1.72 (0.83-1.09) H 01/26/19 18:06 Assessment/Plan 83 year old female with PMH significant for AFib, MVR, dementia, HTN, Anemia, and HLD. She presented to the ER with complaints of chest pain for the past 1 day and generalized weakness for the past 2 days. Chest pain Hx of bleeding Hx of AFib Transaminitis weakness patient has been started on ceftriaxone plan monitor nutrition physio rest as per the team
== END 2019-02-01 14:28 | disposition home health service (06) | DRG 315 ==
LOC: JER 16:33 → INTOOBSV 19:34 → JERBED 19:34 → J4W 01-27 15:54 → OBSVTOIN 01-30 09:18
PROVIDERS: ADMIT Internal Medicine; ATTEND Hospitalist
DX: I27.20 Pulmonary hypertension, unspecified (principal); N39.0 Urinary tract infection, site not specified; J90 Pleural effusion, not elsewhere classified; I24.8 Other forms of acute ischemic heart disease; I34.0 Nonrheumatic mitral (valve) insufficiency; I10 Essential (primary) hypertension; E78.5 Hyperlipidemia, unspecified; K44.9 Diaphragmatic hernia without obstruction or gangrene; Z95.0 Presence of cardiac pacemaker; F03.90 Unspecified dementia, unspecified severity, without behavioral disturbance, psychotic disturbance, mood disturbance, and anxiety; R41.3 Other amnesia; D72.829 Elevated white blood cell count, unspecified; K21.9 Gastro-esophageal reflux disease without esophagitis; I25.10 Atherosclerotic heart disease of native coronary artery without angina pectoris; I45.81 Long QT syndrome; R53.81 Other malaise; I48.0 Paroxysmal atrial fibrillation; R74.0 Nonspecific elevation of levels of transaminase and lactic acid dehydrogenase [LDH]
CPT/HCPCS: 36415; 71045-TC-FY; 71250-TC; 76705-TC; 80048; 80053; 80074; 80076; 80307; 81003; 82272; 82550; 82553; 82962; 83735; 84100; 84484; 85025; 85027; 85610; 86850; 86900; 86901; 87040; 87086; 93005; 93010; 93306-TC; 94761; 97116-GP; 97161-GP; 99284-25; G0378; J7030

== ENCOUNTER 2019-02-05 08:39 | Inpatient (IN) | payer OTHER, BC ==
--- NOTE | 2019-02-05 08:55 | PDOC ---
History of Present Illness - General Chief Complaint: Respiratory Stated Complaint: DIFFICULTY BREATHING Time Seen by Provider: 02/05/19 08:48 - History of Present Illness Initial Comments: 02/05/19 09:17 83 y/o F hx of dementia,anemia, HTN, HLD, hiatal hernia, Afib with pacemaker, AV node ablation,mitral regurgitation presents to the ER brought in by EMS from home for difficulty breathing. Pt. not able to give a history and is not quite sure why she is here. She presented to this ED 10 days ago with a complaitn of fatigue and weakness and was admitted for ACS rule out and treated for UTI. 02/05/19 09:29 02/05/19 09:42 Past History - Past Medical History Allergies/Adverse Reactions: Allergies Allergy/AdvReac Type Severity Reaction Status Date / Time No Known Allergies Allergy Verified 02/05/19 09:46 Home Medications: Ambulatory Orders Diltiazem HCl [Cartia Xt] 240 mg PO DAILY 06/12/18 Esomeprazole Magnesium 40 mg PO DAILY 06/12/18 Fluoxetine HCl [Prozac] 20 mg PO DAILY 06/12/18 Sucralfate [Carafate -] 1 gm PO TID 06/12/18 Apixaban [Eliquis] 2.5 mg PO BID 10/30/18 Atorvastatin Ca [Lipitor] 10 mg PO HS 10/30/18 Donepezil HCl 10 mg PO DAILY 10/30/18 Memantine HCl 10 mg PO BID 10/30/18 Cyanocobalamin (Vitamin B-12) [Vitamin B12] 5,000 mcg PO DAILY 01/27/19 Iron 325 mg PO BID 01/27/19 Metoprolol Succinate 25 mg PO BID 01/27/19 Lisinopril [Prinivil] 2.5 mg PO DAILY #30 tablet 01/31/19 Furosemide [Lasix] 20 mg PO DAILY #15 tablet 02/01/19 Anemia: Yes Cardiac Disorders: Yes (A-fib, PACEMAKER) COPD: No Dementia: Yes GI Disorders: Yes (INDIGESTION, HIATAL HERNIA) HTN: Yes Hypercholesterolemia: Yes - Surgical History Cardiac Surgery: Yes (AV NODE ABLATION,pacemaker: [employer]- model # L331 Atrial lead # 7) - Immunization History Td Vaccination: Yes Immunization Up to Date: (UNKNOWN) - Psycho Social/Smoking Cessation Hx Smoking Status: No Smoking History: Former smoker Have you smoked in the past 12 months: No Number of Cigarettes Smoked Daily: 0 If you are a former smoker, when did you quit?: 30 YEARS AGO Hx Alcohol Use: No Drug/Substance Use Hx: No Substance Use Type: None Hx Substance Use Treatment: No Review of Systems - Review of Systems Able to Perform ROS?: No Comments:: 02/05/19 09:34 poor historian due to dementia *Physical Exam - Physical Exam Comments: 02/05/19 09:31 GENERAL: Awake, alert, and fully oriented, in no acute distress HEAD: No signs of trauma, normocephalic, atraumatic EYES: PERRLA, EOMI, sclera anicteric, conjunctiva clear ENT: Auricles normal inspection, hearing grossly normal, nares patent, oropharynx clear without exudates. Moist mucosa NECK: Normal ROM, supple, no lymphadenopathy, JVD, or masses LUNGS: Breathing is labored. however not gasping for air. currently on 5L nasal cannula O2 saturation 100% HEART: Regular rate and rhythm, normal S1 and S2, systolic murmur present. peripheral pulses normal and equal bilaterally. ABDOMEN: Soft, nontender, normoactive bowel sounds. No guarding, no rebound. No masses EXTREMITIES : Normal inspection, Normal range of motion, no edema. No clubbing or cyanosis NEUROLOGICAL: Alert. 5/5 strength upper and lower extremities. able to follow commands. SKIN: Warm, Dry, normal turgor, no rashes or lesions noted ED Treatment Course - LABORATORY CBC & Chemistry Diagram: 02/11/19 06:30 02/11/19 06:30 Medical Decision Making - Medical Decision Making 02/05/19 09:35 83 y/o F hx of dementia,anemia, HTN, HLD, hiatal hernia, Afib with pacemaker, AV node ablation, presents to the ER brought in by EMS from home for difficulty breathing. EKG, cbc, cmp, troponin, bnp, ua urine culture 02/05/19 13:20 BNP results: 08924.3 EKG:Normal sinus rhythm , nonspecific T wave abnormality, prolonged Qt, unchanged from prior EKG Pt. admitted to Dr. Calderón's service. 02/05/19 13:21 Discharge - Discharge Information Problems reviewed: Yes Clinical Impression/Diagnosis: Shortness of breath Condition: Stable - Follow up/Referral - Patient Discharge Instructions - Post Discharge Activity
--- NOTE | 2019-02-05 09:42 | PDOC ---
Attending Attestation - Resident Resident Name: Chloé Franklin - HPI HPI: 02/05/19 09:49 Pt presents to the ED complaining of a two day history of shortness of breath, generalized malaise and weakness. Extensive history of cardiac disease as described in resident note. - Physicial Exam PE: 02/05/19 09:59 Agree with resident note. Patient is alert and in NAD but with some conversational dyspnea, speaking in 2-3 word sentences. Lungs: + crackles in bases. CV: loud systolic murmur. Abdomen: soft, non tender, non distended. Ext : + trace edema. - Medical Decision Making 02/05/19 10:12 PT presents to the ED complaining of shortness of breath and generalized weakness. differential includes CHF, ACS, less likely PNA. will check labs and cxr, reassess.
[2019-02-05 11:06] LABS: BASO % 0.6 % (0-2.0); EOS % 1.3 % (0-4.5); HEMATOCRIT 36.6 % (32.4-45.2); HEMOGLOBIN 11.8 GM/dL (10.7-15.3); LYMPH % 14.4 % (8-40); MCH 30.4 pg (25.7-33.7); MCHC 32.3 g/dl (32.0-36.0); MEAN CELL VOLUME 94.1 fl (80-96); MEAN PLT VOLUME 10.1 fl (7.5-11.1); MONO % 10.2 % (3.8-10.2); NEUT % 73.5 % (42.8-82.8); PLATELET COUNT 249 K/MM3 (134-434); RBC 3.89 M/mm3 (3.60-5.2); RDW 14.7 % (11.6-15.6); WHITE BLOOD COUNT 10.5 K/mm3 (4.0-10.0)
[2019-02-05 11:09] LABS: EPI CELLS 15.3 /HPF (0-5/HPF); HYALINE CASTS 25 /lpf (0-8); URINE APPEARANCE CLOUDY; URINE BACTERIA 7.6 /hpf (NEGATIVE); URINE BILIRUBIN 1+ (NEGATIVE); URINE COLOR DK YELLOW; URINE GLUCOSE (UA) NEGATIVE (NEGATIVE); URINE KETONE TRACE (NEGATIVE); URINE LEUK ESTERASE 1+ (NEGATIVE); URINE NITRITE NEGATIVE (NEGATIVE); URINE PROTEIN 1+ (NEGATIVE); URINE RBC 2 /hpf (0-4); URINE WBC 12 /hpf (0-5)
[2019-02-05 11:32] LABS: ALBUMIN 3.1 g/dl (3.4-5.0); BILIRUBIN,TOTAL 0.5 mg/dL (0.2-1); BLOOD UREA NITROGEN 26.6 mg/dL (7-18); CALCIUM 8.3 mg/dL (8.5-10.1); CREATININE 1.1 mg/dL (0.55-1.3); POTASSIUM 4.3 mmol/L (3.5-5.1); TOT PROT 6.3 g/dl (6.4-8.2)
[2019-02-05 11:34] LABS: N-TERMINAL BNP 13054.3 pg/ml (5-450)
[2019-02-05] MEDS ORDERED: FUROSEMIDE 40 MG/4 ML INJECTABLE VIAL IVPUSH ONE ×2 (13:05→13:09)
--- NOTE | 2019-02-05 13:30 | HP ---
CHIEF COMPLAINT: shortness of breath PCP: Dr. Bety Adler Accounting Representative: Dr. Cam HISTORY OF PRESENT ILLNESS: 83 yof with PMHx of Progressive Dementia, severe Mitral regurgitation, Moderate to Sev TR, Severe Pul HTN, Paroxysmal Afib s/p PPM, transaminitis, frequent UTI' s, recently admitted t[facility] from 01/26-02/01 with UTI/AMS/CHF/Elevated troponin, was doing well till last night when had sudden onset of worsening shortness of breath, inability to lie flat, prompting to come to ED. reports having albanian food for dinner. Denies any chest pain, palpitations, dizziness, arm or jaw pain, abdominal or urinary symptoms Has been feeling weak and fatigued since her recent dc but no concerns otherwise. 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 Family History: reviewed and found to be non contributory Allergies No Known Allergies Allergy (Verified 02/05/19 09:46) HOME MEDICATIONS: Home Medications Medication Instructions Recorded Diltiazem HCl [Cartia Xt] 240 mg PO DAILY 06/12/18 Esomeprazole Magnesium 40 mg PO DAILY 06/12/18 Fluoxetine HCl [Prozac] 20 mg PO DAILY 06/12/18 Sucralfate [Carafate -] 1 gm PO TID 06/12/18 Apixaban [Eliquis] 2.5 mg PO BID 10/30/18 Atorvastatin Ca [Lipitor] 10 mg PO HS 10/30/18 Donepezil HCl 10 mg PO DAILY 10/30/18 Memantine HCl 10 mg PO BID 10/30/18 Cyanocobalamin (Vitamin B-12) 5,000 mcg PO DAILY 01/27/19 [Vitamin B12] Iron 325 mg PO BID 01/27/19 Metoprolol Succinate 25 mg PO BID 01/27/19 Lisinopril [Prinivil] 2.5 mg PO DAILY #30 tablet 01/31/19 Furosemide [Lasix] 20 mg PO DAILY #15 tablet 02/01/19 REVIEW OF SYSTEMS 12 point ROS done, per HPI PHYSICAL EXAMINATION Vital Signs - 24 hr 02/05/19 02/05/19 02/05/19 09:00 11:53 11:57 Temperature 97.3 F L 97.2 F L Pulse Rate 64 Pulse Rate [ 64 67 Apical] Respiratory 20 21 H Rate Blood Pressure 119/71 Blood Pressure 122/62 [Left Arm] Blood Pressure 119/71 [Right Arm] O2 Sat by Pulse 100 99 99 Oximetry (%) GENERAL: Awake, alert, weak looking, short sentences, but no use of accessory muscles of respiration HEAD: Normal with no signs of trauma. EYES: Pupils equal, round and reactive to light, extraocular movements intact, sclera anicteric, conjunctiva clear. No lid lag. EARS, NOSE, THROAT: Ears normal, nares patent, oropharynx clear without exudates. Moist mucous membranes. NECK: Normal range of motion, supple, neck vein distension LUNGS: decreased breath sounds at bases, Right mid lung fine rales, positive air entry, no wheezing HEART: Regular rate and rhythm, normal S1 and S2 , systolic decrescendo murmur in mitral/tricuspid regions, systolic crescendo/decrescendo murmur in aortic/ pulmonary region ABDOMEN: Soft, nontender, some distension, normoactive bowel sounds, no guarding , no rebound, no masses. No hepatomegaly or splenomegaly appreciated. MUSCULOSKELETAL: Normal range of motion at all joints. No bony deformities or tenderness. No CVA tenderness. UPPER EXTREMITIES: 2+ pulses, warm, well-perfused. No cyanosis. No clubbing. No peripheral edema, ecchymotic areas. LOWER EXTREMITIES:1+ pedal pitting edema, varicosities, ecchymotic areas NEUROLOGICAL: AAox3, Cranial nerves II-XII intact. Normal speech. facial symmetry, tongue midline, gait not observed PSYCHIATRIC: Cooperative. Good eye contact. Appropriate mood and affect. SKIN: Warm, dry, normal turgor, no rashes or lesions noted, normal capillary refill. Laboratory Results - last 24 hr 02/05/19 02/05/19 02/05/19 10:10 10:10 10:10 WBC 10.5 H RBC 3.89 Hgb 11.8 Hct 36.6 MCV 94.1 MCH 30.4 MCHC 32.3 RDW 14.7 Plt Count 249 MPV 10.1 Absolute Neuts (auto) 7.8 Neutrophils % 73.5 Lymphocytes % 14.4 Monocytes % 10.2 Eosinophils % 1.3 Basophils % 0.6 Nucleated RBC % 0 Sodium 141 Potassium 4.3 Chloride 104 Carbon Dioxide 28 Anion Gap 9 BUN 26.6 H Creatinine 1.1 Est GFR (CKD-EPI)AfAm 53.77 Est GFR (CKD-EPI)NonAf 46.39 Random Glucose 101 Calcium 8.3 L Total Bilirubin 0.5 AST 17 ALT 30 Alkaline Phosphatase 113 Troponin I < 0.02 B-Natriuretic Peptide 79077.3 H Total Protein 6.3 L Albumin 3.1 L Urine Color Urine Appearance Urine pH Ur Specific [place] Urine Protein Urine Glucose (UA) Urine Ketones Urine Blood Urine Nitrite Urine Bilirubin Urine Urobilinogen Ur Leukocyte Esterase Urine WBC (Auto) Urine RBC (Auto) Urine Casts (Auto) U Pathogenic Cast Auto U Epithel Cells (Auto) Urine Bacteria (Auto) 02/05/19 10:10 WBC RBC Hgb Hct MCV MCH MCHC RDW Plt Count MPV Absolute Neuts (auto) Neutrophils % Lymphocytes % Monocytes % Eosinophils % Basophils % Nucleated RBC % Sodium Potassium Chloride Carbon Dioxide Anion Gap BUN Creatinine Est GFR (CKD-EPI)AfAm Est GFR (CKD-EPI)NonAf Random Glucose Calcium Total Bilirubin AST ALT Alkaline Phosphatase Troponin I B-Natriuretic Peptide Total Protein Albumin Urine Color Dk yellow Urine Appearance Cloudy Urine pH 5.0 Ur Specific [place] 1.033 Urine Protein 1+ H Urine Glucose (UA) Negative Urine Ketones Trace H Urine Blood Negative Urine Nitrite Negative Urine Bilirubin 1+ H Urine Urobilinogen 1.0 Ur Leukocyte Esterase 1+ H Urine WBC (Auto) 12 Urine RBC (Auto) 2 Urine Casts (Auto) 25 U Pathogenic Cast Auto None seen U Epithel Cells (Auto) 15.3 Urine Bacteria (Auto) 7.6 CXr images and results reviewed EKG: NSR, T inversion V1-V3, III (Old), QTC 481 ASSESSMENT/PLAN: 83 yof with PMHx of Progressive Dementia, severe Mitral regurgitation, Moderate to Sev TR, Severe Pul HTN, Paroxysmal Afib s/p PPM, transaminitis, frequent UTI' s, recently admitted tO [facility] from 01/26-02/01 with UTI/AMS/CHF/Elevated troponin, d/lorelei on lasix 20 mg/Lisinopril 2.5 mg, admitted with acute CHF exacerbation. -Acute diastolic heart failure exacerbation, suspect from dietary non compliance (Romansh food) in the setting of severe MR/TR/pul HTN -Bilateral pleural effusions -Severe Mitral regurgitation -Moderate to severe tricuspid regurgitation -Severe pulmonary HTN -Paroxysmal Afib s/p PPM -Recurrent UTIs -Transaminitis -Progressive dementia Plan: Lasix 40 mg IV daily, strict I/os, daily weights. Recent 2D echo. Dietary counseling, nutrition consult Cardiology input. Continue metoprolol/cardizem/lisinopril as tolerated. Apixaban DVTPPX as above Code status: Wants to be full code. Daughter Isa Phan HCP. Dispo patient has 24 hour home health occupational therapist. Family wants to take patient home when improved PT eval and OOB when improved. Admit to inpatient telemetry Discussed with patient, at bedside and aide, all questions answered Care co-ordinated with ED. Total admit time 65 min. Visit type - Emergency Visit Emergency Visit: Yes Care time: The patient presented to the Emergency Department on the above date and was hospitalized for further evaluation of their emergent condition. - New Patient This patient is new to me today: Yes Date on this admission: 02/05/19 - Critical Care Critical Care patient: No
[2019-02-05] MEDS ORDERED: FUROSEMIDE 40 MG/4 ML INJECTABLE VIAL ONE (14:00)
[2019-02-05 14:47] LABS: MAGNESIUM 2.4 mg/dL (1.8-2.4); PHOSPHOROUS 3.9 mg/dL (2.5-4.9)
--- NOTE | 2019-02-05 16:46 | EKG ---
Test Reason : Blood Pressure : / mmHG Vent. Rate : 061 BPM Atrial Rate : 061 BPM P-R Int : 134 ms QRS Dur : 088 ms QT Int : 478 ms P-R-T Axes : 061 051 -08 degrees QTc Int : 481 ms NORMAL SINUS RHYTHM WITH DEMAND ATRIAL PACING NONSPECIFIC T WAVE ABNORMALITY PROLONGED QT ABNORMAL ECG WHEN COMPARED WITH ECG OF 27-JAN-2019 20:13, DEMAND PACING IS SEEN Confirmed by JESSICA NDIAYE, JESSICA ([id number]) on 02/05/2019 4:46:39 PM Referred By: Confirmed By:JESSICA LOPEZ MD
[2019-02-05] MEDS: APIXABAN 2.5 MG TABLET PO SCH (21:21)
[2019-02-05] MEDS: ATORVASTATIN CA 10 MG TABLET (FP) PO SCH (21:21)
[2019-02-05] MEDS: FERROUS SO4 325 MG TABLET (FP) PO SCH (21:21)
[2019-02-05] MEDS: metoPROLOL SUCCINATE 25 MG TAB.SR.24H (FP) PO SCH (21:21)
[2019-02-05] MEDS: MEMANTINE HCL 10 MG TABLET (FP) PO SCH (21:21)
[2019-02-06 08:16] LABS: BASO % 0.6 % (0-2.0); EOS % 1.7 % (0-4.5); HEMATOCRIT 35.1 % (32.4-45.2); HEMOGLOBIN 11.5 GM/dL (10.7-15.3); LYMPH % 13.1 % (8-40); MCH 30.9 pg (25.7-33.7); MCHC 32.9 g/dl (32.0-36.0); MEAN CELL VOLUME 93.9 fl (80-96); MEAN PLT VOLUME 9.9 fl (7.5-11.1); MONO % 11.1 % (3.8-10.2); NEUT % 73.5 % (42.8-82.8); PLATELET COUNT 248 K/MM3 (134-434); RBC 3.74 M/mm3 (3.60-5.2); RDW 14.6 % (11.6-15.6); WHITE BLOOD COUNT 8.6 K/mm3 (4.0-10.0)
[2019-02-06 08:40] LABS: ALBUMIN 3.2 g/dl (3.4-5.0); BILIRUBIN,TOTAL 0.7 mg/dL (0.2-1); BLOOD UREA NITROGEN 24.1 mg/dL (7-18); CALCIUM 8.6 mg/dL (8.5-10.1); CREATININE 1.1 mg/dL (0.55-1.3); MAGNESIUM 2.2 mg/dL (1.8-2.4); PHOSPHOROUS 3.9 mg/dL (2.5-4.9); POTASSIUM 3.8 mmol/L (3.5-5.1); TOT PROT 6.3 g/dl (6.4-8.2)
--- NOTE | 2019-02-06 08:58 | PN ---
Progress Note (short form) - Note Progress Note: HPI: Pt reports her breathing is better today. Pt had questions regarding types of foods to eat. Otherwise pt has no lightheadedness, dizziness, chest pain, palpitations, abdominal pain. Vital Signs Temperature 97.8 F 02/06/19 05:53 Pulse Rate 65 02/06/19 05:53 Respiratory Rate 18 02/06/19 05:53 Blood Pressure 124/72 02/06/19 05:53 O2 Sat by Pulse Oximetry (%) 97 02/05/19 20:31 Gen: NAD, awake, alert, sitting OOB to chair HEENT: NC/AT, EOMI, DIMAS, sclera anicteric, MMM Neck: No JVD LUNGS: Minimal rales appreciated at bases L>R. 2LNC, no accessory muscle use CARD: Irregularly irregular with normal rate S1 and S2 normal. 3/6 systolic murmur at apex and TR area of auscultation ABD: Soft, NT/ND normoactive BS, no hepatojugular reflux appreciated, no guarding EXT: No edema noted CBC, BMP 02/06/19 07:27 02/06/19 07:27 Active Medications Apixaban (Eliquis -) 2.5 mg PO BID [facility] Last Admin: 02/05/19 21:21 Dose: 2.5 mg Atorvastatin Calcium (Lipitor -) 10 mg PO HS [facility] Last Admin: 02/05/19 21:21 Dose: 10 mg Cyanocobalamin (Vitamin B12 -) 5,000 mcg PO DAILY [facility] Diltiazem HCl (Cardizem Cd -) 240 mg PO DAILY [facility] Last Admin: 02/05/19 14:56 Dose: 240 mg Donepezil HCl (Aricept -) 10 mg PO DAILY [facility] Ferrous Sulfate (Feosol -) 325 mg PO BID [facility] Last Admin: 02/05/19 21:21 Dose: 325 mg Furosemide (Lasix Injection -) 40 mg IVPUSH DAILY@0800 [facility] Lisinopril (Prinivil) 2.5 mg PO DAILY [facility] Memantine (Namenda -) 10 mg PO BID [facility] Last Admin: 02/05/19 21:21 Dose: 10 mg Metoprolol Succinate (Toprol Xl -) 25 mg PO BID [facility] Last Admin: 02/05/19 21:21 Dose: 25 mg Pantoprazole Sodium (Protonix -) 40 mg PO DAILY [facility] A/P Volume overload 2/2 to HFpEF Pulmonary HTN PAF s/p PPM Mild memory deficits Prolonged QTc HTN HLD --Pt improved from previous day --Continue Lasix 40mg IVP qdaily and can transition to PO possible tomorrow pending interval improvement --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 Stephane Abrams, DO - IM PGY-3
[2019-02-06] MEDS: FUROSEMIDE 40 MG/4 ML INJECTABLE VIAL IVPUSH SCH (09:10)
[2019-02-06] MEDS: DONEPEZIL HCL 10 MG TABLET (FP) PO SCH (09:30)
[2019-02-06] MEDS: metoPROLOL SUCCINATE 25 MG TAB.SR.24H (FP) PO SCH ×2 (09:30→21:16)
[2019-02-06] MEDS: APIXABAN 2.5 MG TABLET PO SCH ×2 (09:30→21:16)
[2019-02-06] MEDS: CYANOCOBALAMIN 1,000 MCG TABLET (FP) PO SCH (09:31)
[2019-02-06] MEDS: MEMANTINE HCL 10 MG TABLET (FP) PO SCH ×2 (09:31→21:16)
[2019-02-06] MEDS: LISINOPRIL 5 MG TABLET (FP) PO SCH (09:31)
[2019-02-06] MEDS: FERROUS SO4 325 MG TABLET (FP) PO SCH ×2 (09:31→21:16)
[2019-02-06] MEDS: PANTOPRAZOLE 40 MG TABLET (FP) PO SCH (09:31)
--- NOTE | 2019-02-06 10:30 | CON.CARD ---
Cardiology Consult (text) - Consultation Consultation Note: Chief Complaint: sob History of Present Illness: 83 year old woman pmh Pafib, prior AV node ablation and PPM 06/2016, HTN, HLD, MR followed by outpatient [facility] here with sob, orthopnea. No cp palps dizzy loc pnd le edema. She admits to eating some salty food at home. - History Source History Provided By: Patient, Medical Record Limitations to Obtaining History: No Limitations - Past Medical History Cardio/Vascular: Yes: AFIB, HTN, Hyperlipdemia, Mitral Insufficiency (MVR w Mod- Severe MR), Other (AV Node Ablation) - Past Surgical History Past Surgical History: Yes: Permanent Pacemaker - Alcohol/Substance Use Hx Alcohol Use: No - Smoking History Smoking history: Former smoker Have you smoked in the past 12 months: No Aproximately how many cigarettes per day: 0 If you are a former smoker, when did you quit?: 30 YEARS AGO - Social History Usual Living Arrangement: Alone ADL: Independent History of Recent Travel: No Home Medications - Allergies Allergies/Adverse Reactions: Allergies Allergy/AdvReac Type Severity Reaction Status Date / Time No Known Allergies Allergy Verified 02/05/19 09:46 Home Medications Medication Instructions Recorded Diltiazem HCl [Cartia Xt] 240 mg PO DAILY 06/12/18 Esomeprazole Magnesium 40 mg PO DAILY 06/12/18 Fluoxetine HCl [Prozac] 20 mg PO DAILY 06/12/18 Sucralfate [Carafate -] 1 gm PO TID 06/12/18 Apixaban [Eliquis] 2.5 mg PO BID 10/30/18 Atorvastatin Ca [Lipitor] 10 mg PO HS 10/30/18 Donepezil HCl 10 mg PO DAILY 10/30/18 Memantine HCl 10 mg PO BID 10/30/18 Cyanocobalamin (Vitamin B-12) 5,000 mcg PO DAILY 01/27/19 [Vitamin B12] Iron 325 mg PO BID 01/27/19 Metoprolol Succinate 25 mg PO BID 01/27/19 Lisinopril [Prinivil] 2.5 mg PO DAILY #30 tablet 01/31/19 Furosemide [Lasix] 20 mg PO DAILY #15 tablet 02/01/19 Family Disease History - Family Disease History Family History: Denies Review of Systems - Review of Systems Constitutional: denies: No Symptoms, Chills, Diaphoresis, Fever, Lethargy, Loss of Appetite, Malaise, Night Sweats, Unintentional Wgt. Loss, Weakness, Other Eyes: denies: No Symptoms, Blind Spots, Blurred Vision, Double Vision, Eye Pain , Floaters, Photophobia, Recent Change in Vision, Other HENT: denies: No Symptoms, Difficult Swallowing, Ear Discharge, Ear Pain, Epistaxis, Gingival Bleeding, Hearing Loss, Mouth Swelling, Nasal Congestion, Ocular Prosthesis, Throat Pain, Toothache, Ringing in Ears, Other Neck: denies: No Symptoms, Decreased ROM, Lumps, Pain on Movement, Stiffness, Swollen Glands, Tenderness, Other Cardiovascular: reports: Palpitations. denies: No Symptoms, Chest Pain, Edema, Other Gastrointestinal: denies: No Symptoms, Abdominal Pain, Bloating, Constipation, Diarrhea, Dysphagia, Indigestion, Melena, Nausea, Rectal Bleeding, Vomiting, Vomiting Blood, Other Genitourinary: denies: No Symptoms, Burning, Discharge, Dysuria, Flank Pain, Frequency, Hematuria, Incontinence, Lesions, Menses, Pain, Testicular Mass, Testicular Pain, Testicular Swelling, Urgency, Vaginal Bleeding, Other Breasts: denies: No Symptoms Reported, See HPI, Breast Implants, Discharge from Nipple, Lumps, Pain, Skin Changes, Other Musculoskeletal: denies: No Symptoms, Back Pain, Crepitus, Decreased ROM, Extremity Pain, Joint Pain, Joint Swelling, Muscle Pain, Muscle Cramps, Muscle Weakness, Other Integumentary: denies: No Symptoms, Blister, Bruising, Change in Color, Eczema, Erythema, Incision, Lesions, Lump, Pallor, Pruritis, Rash, Wound, Other Neurological: reports: Dizziness. denies: No Symptoms, Change in LOC, Change in Speech, Confusion, Headache, Incoordination, Numbness, Parasthesia, Pre- Existing Deficit, Seizure, Syncope, Tremors, Unsteady Gait, Weakness, Other Endocrine: denies: No Symptoms, Excessive Sweating, Flushing, Increased Hunger, Increased Thirst, Intolerance to Cold, Intolerance to Heat, Unexplained Weight Gain, Unexplained Weight Loss, Other Hematology/Lymphatic: denies: No Symptoms, Easily Bruised, Excessive Bleeding, Swollen Glands, Other Psychiatric: denies: No Symptoms, Altered Sleep Pattern, Anxiety, Depression, Hallucinations, Panic, Paranoia, Suicidal, Other - Risk Factors Known Risk Factors: Yes: Age Vital Signs: Vital Signs Period Temp Pulse Resp BP Sys/Rice Pulse Ox Last 24 Hr 97.2 F-97.8 F 60-72 18-22 102-124/42-72 96-99 Constitutional: Yes: Well Nourished, No Distress, Calm Eyes: Yes: WNL, Conjunctiva Clear HENT: Yes: WNL, Atraumatic, Normocephalic Neck: Yes: WNL, Supple, Trachea Midline Respiratory: Yes: WNL, Regular, CTA Bilaterally. No: Rales, Rhonchi, Wheezes Gastrointestinal: Yes: WNL, Normal Bowel Sounds, Soft. No: Distention, Tenderness Cardiovascular: Yes: Pulse Irregular. No: Regular Rate and Rhythm, Bradycardia , Tachycardia, Gallop, Rub, Varicosities JVD: No Carotid Bruit: No PMI: Non-Displaced Heart Sounds: Yes: S1, S2. No: Split S2, S3, S4, Clicks, Gallop, Rub, Bruit Murmur: Yes: Systolic Murmur. No: Diastolic Murmur Musculoskeletal: Yes: WNL Extremities: Yes: WNL Edema: No Peripheral Pulses WNL: Yes Peripheral Pulses: 2+ Left Doralis Pedis, 2+ Right Dorsalis Pedis Integumentary: Yes: WNL Neurological: Yes: WNL, Alert, Oriented ...Motor Strength: WNL Psychiatric: Yes: WNL, Alert, Oriented - Other Data Labs, Other Data: Laboratory Last Values WBC 8.6 K/mm3 (4.0-10.0) 02/06/19 07:27 RBC 3.74 M/mm3 (3.60-5.2) 02/06/19 07:27 Hgb 11.5 GM/dL (10.7-15.3) 02/06/19 07:27 Hct 35.1 % (32.4-45.2) 02/06/19 07:27 MCV 93.9 fl (80-96) 02/06/19 07:27 MCH 30.9 pg (25.7-33.7) 02/06/19 07:27 MCHC 32.9 g/dl (32.0-36.0) 02/06/19 07:27 RDW 14.6 % (11.6-15.6) 02/06/19 07:27 Plt Count 248 K/MM3 (134-434) 02/06/19 07:27 MPV 9.9 fl (7.5-11.1) 02/06/19 07:27 Absolute Neuts (auto) 6.3 K/mm3 (1.5-8.0) 02/06/19 07:27 Neutrophils % 73.5 % (42.8-82.8) 02/06/19 07:27 Lymphocytes % 13.1 % (8-40) 02/06/19 07:27 Monocytes % 11.1 % (3.8-10.2) H 02/06/19 07:27 Eosinophils % 1.7 % (0-4.5) 02/06/19 07:27 Basophils % 0.6 % (0-2.0) 02/06/19 07:27 Nucleated RBC % 0 % (0-0) 02/06/19 07:27 Sodium 137 mmol/L (136-145) 02/06/19 07:27 Potassium 3.8 mmol/L (3.5-5.1) 02/06/19 07:27 Chloride 99 mmol/L (98-107) 02/06/19 07:27 Carbon Dioxide 32 mmol/L (21-32) 02/06/19 07:27 Anion Gap 6 MMOL/L (8-16) L 02/06/19 07:27 BUN 24.1 mg/dL (7-18) H 02/06/19 07:27 Creatinine 1.1 mg/dL (0.55-1.3) 02/06/19 07:27 Est GFR (CKD-EPI)AfAm 53.77 02/06/19 07:27 Est GFR (CKD-EPI)NonAf 46.39 02/06/19 07:27 Random Glucose 116 mg/dL (74-106) H 02/06/19 07:27 Calcium 8.6 mg/dL (8.5-10.1) 02/06/19 07:27 Phosphorus 3.9 mg/dL (2.5-4.9) 02/06/19 07:27 Magnesium 2.2 mg/dL (1.8-2.4) 02/06/19 07:27 Total Bilirubin 0.7 mg/dL (0.2-1) 02/06/19 07:27 AST 15 U/L (15-37) 02/06/19 07:27 ALT 28 U/L (13-61) 02/06/19 07:27 Alkaline Phosphatase 113 U/L (45-117) 02/06/19 07:27 Troponin I 0.02 ng/ml (0.00-0.05) 02/05/19 18:00 B-Natriuretic Peptide 59789.3 pg/ml (5-450) H 02/05/19 10:10 Total Protein 6.3 g/dl (6.4-8.2) L 02/06/19 07:27 Albumin 3.2 g/dl (3.4-5.0) L 02/06/19 07:27 Urine Color Dk yellow 02/05/19 10:10 Urine Appearance Cloudy 02/05/19 10:10 Urine pH 5.0 (5.0-8.0) 02/05/19 10:10 Ur Specific [place] 1.033 (1.010-1.035) 02/05/19 10:10 Urine Protein 1+ (NEGATIVE) H 02/05/19 10:10 Urine Glucose (UA) Negative (NEGATIVE) 02/05/19 10:10 Urine Ketones Trace (NEGATIVE) H 02/05/19 10:10 Urine Blood Negative (NEGATIVE) 02/05/19 10:10 Urine Nitrite Negative (NEGATIVE) 02/05/19 10:10 Urine Bilirubin 1+ (NEGATIVE) H 02/05/19 10:10 Urine Urobilinogen 1.0 mg/dL (0.2-1.0) 02/05/19 10:10 Ur Leukocyte Esterase 1+ (NEGATIVE) H 02/05/19 10:10 Urine WBC (Auto) 12 /hpf (0-5) 02/05/19 10:10 Urine RBC (Auto) 2 /hpf (0-4) 02/05/19 10:10 Urine Casts (Auto) 25 /lpf (0-8) 02/05/19 10:10 U Pathogenic Cast Auto None seen /lpf (NEGATIVE) 02/05/19 10:10 U Epithel Cells (Auto) 15.3 /HPF (0-5/HPF) 02/05/19 10:10 Urine Bacteria (Auto) 7.6 /hpf (NEGATIVE) 02/05/19 10:10 tele: sr, occ a pacing ecg: sr, nl intervals no ischemic changes cxr: no chf Echo report from 12/07/18 reviewed: Normal LVEF, LAE, Severe MR w/ posterior leaflet prolapse. Severe PHTN Echo here 01/26: similar findings a/p: 83 year old woman pmh Pafib, prior AV node ablation and PPM 06/2016, HTN, HLD, MR followed by outpatient [facility] Locator: [facility] (Dr. Yariel Morfin ), here with sob, orthopnea. acute diastolic chf, MR: -pt with known hx sev MR. MV intervention being deferred by Dr. Cam given pt's progressive decline--outpt f/u with him rec'd. -mild vol overload, agree with iv lasix. daily chem7, wt. -no signs acs PAF, prior AV node ablation and PPM 06/2016: -in sr now, cont bb/dilt -cont eliquis htn: -cont home meds hld: -cont statin
[2019-02-06] MEDS ORDERED: ALBUTEROL SO4 0.083% IH SOL 2.5 MG/3 ML VIAL.NEB. NEB ONE (10:54)
--- NOTE | 2019-02-06 11:26 | PN ---
Teaching Attending Note Name of Resident: Joes Abrams ATTENDING PHYSICIAN STATEMENT I saw and evaluated the patient. I reviewed the resident's note and discussed the case with the resident. I agree with the resident's findings and plan as documented with exceptions below. SUBJECTIVE: Patient seen and examined. Breathing improved, still weak, no new complaints OBJECTIVE: Vital Signs Period Temp Pulse Resp BP Sys/Rice Pulse Ox Last 24 Hr 97.2 F-97.8 F 60-72 18-22 102-124/42-72 96-99 Intake & Output 02/03/19 02/04/19 02/05/19 02/06/19 23:59 23:59 23:59 23:59 Intake Total 550 Output Total 200 Balance 550 -200 Weight 142 lb 141 lb General: sitting in chair in no acute distress neck: soft, supple, improved Neck vein distension JVD upto 7 cm CVS:S1S2 regular, systolic decrescendo murmur in mitral/tricuspid regions, systolic crescendo/decrescendo murmur in aortic/pulmonary region Chest: decreased breath sounds as bases, markedly improved fine rales and air entry, no wheezing Extremities: 1+ pedal pitting edema with varicosities and ecchymotic areas Home Medications Medication Instructions Recorded Diltiazem HCl [Cartia Xt] 240 mg PO DAILY 06/12/18 Esomeprazole Magnesium 40 mg PO DAILY 06/12/18 Fluoxetine HCl [Prozac] 20 mg PO DAILY 06/12/18 Sucralfate [Carafate -] 1 gm PO TID 06/12/18 Apixaban [Eliquis] 2.5 mg PO BID 10/30/18 Atorvastatin Ca [Lipitor] 10 mg PO HS 10/30/18 Donepezil HCl 10 mg PO DAILY 10/30/18 Memantine HCl 10 mg PO BID 10/30/18 Cyanocobalamin (Vitamin B-12) 5,000 mcg PO DAILY 01/27/19 [Vitamin B12] Iron 325 mg PO BID 01/27/19 Metoprolol Succinate 25 mg PO BID 01/27/19 Lisinopril [Prinivil] 2.5 mg PO DAILY #30 tablet 01/31/19 Furosemide [Lasix] 20 mg PO DAILY #15 tablet 02/01/19 Active Medications Apixaban (Eliquis -) 2.5 mg PO BID [facility] Last Admin: 09/30/19 09:30 Dose: 2.5 mg Atorvastatin Calcium (Lipitor -) 10 mg PO HS [facility] Last Admin: 02/05/19 21:21 Dose: 10 mg Cyanocobalamin (Vitamin B12 -) 5,000 mcg PO DAILY [facility] Last Admin: 02/06/19 09:31 Dose: 5,000 mcg Diltiazem HCl (Cardizem Cd -) 240 mg PO DAILY [facility] Last Admin: 02/06/19 09:31 Dose: 240 mg Donepezil HCl (Aricept -) 10 mg PO DAILY [facility] Last Admin: 02/06/19 09:30 Dose: 10 mg Ferrous Sulfate (Feosol -) 325 mg PO BID [facility] Last Admin: 02/06/19 09:31 Dose: 325 mg Furosemide (Lasix Injection -) 40 mg IVPUSH DAILY@0800 [facility] Last Admin: 02/06/19 09:10 Dose: 40 mg Lisinopril (Prinivil) 2.5 mg PO DAILY [facility] Last Admin: 02/06/19 09:31 Dose: 2.5 mg Memantine (Namenda -) 10 mg PO BID [facility] Last Admin: 02/06/19 09:31 Dose: 10 mg Metoprolol Succinate (Toprol Xl -) 25 mg PO BID [facility] Last Admin: 02/06/19 09:30 Dose: 25 mg Pantoprazole Sodium (Protonix -) 40 mg PO DAILY [facility] Last Admin: 02/06/19 09:31 Dose: 40 mg Laboratory Results - last 24 hr 02/05/19 02/05/19 02/05/19 10:10 10:10 10:10 WBC RBC Hgb Hct MCV MCH MCHC RDW Plt Count MPV Absolute Neuts (auto) Neutrophils % Lymphocytes % Monocytes % Eosinophils % Basophils % Nucleated RBC % Sodium 141 Potassium 4.3 Chloride 104 Carbon Dioxide 28 Anion Gap 9 BUN 26.6 H Creatinine 1.1 Est GFR (CKD-EPI)AfAm 53.77 Est GFR (CKD-EPI)NonAf 46.39 Random Glucose 101 Calcium 8.3 L Phosphorus 3.9 Magnesium 2.4 Total Bilirubin 0.5 AST 17 ALT 30 Alkaline Phosphatase 113 Troponin I < 0.02 B-Natriuretic Peptide 43216.3 H Total Protein 6.3 L Albumin 3.1 L U Pathogenic Cast Auto None seen 02/05/19 02/06/19 02/06/19 18:00 07:27 07:27 WBC 8.6 RBC 3.74 Hgb 11.5 Hct 35.1 MCV 93.9 MCH 30.9 MCHC 32.9 RDW 14.6 Plt Count 248 MPV 9.9 Absolute Neuts (auto) 6.3 Neutrophils % 73.5 Lymphocytes % 13.1 Monocytes % 11.1 H Eosinophils % 1.7 Basophils % 0.6 Nucleated RBC % 0 Sodium 137 Potassium 3.8 Chloride 99 Carbon Dioxide 32 Anion Gap 6 L BUN 24.1 H Creatinine 1.1 Est GFR (CKD-EPI)AfAm 53.77 Est GFR (CKD-EPI)NonAf 46.39 Random Glucose 116 H Calcium 8.6 Phosphorus 3.9 Magnesium 2.2 Total Bilirubin 0.7 AST 15 ALT 28 Alkaline Phosphatase 113 Troponin I 0.02 B-Natriuretic Peptide Total Protein 6.3 L Albumin 3.2 L U Pathogenic Cast Auto CXR images reviewed ASSESSMENT AND PLAN: 83 yof with PMHx of Progressive Dementia, severe Mitral regurgitation, Moderate to Sev TR, Severe Pul HTN, Paroxysmal Afib s/p PPM, transaminitis, frequent UTI' s, recently admitted tO [facility] from 01/26-02/01 with UTI/AMS/CHF/Elevated troponin, d/lorelei on lasix 20 mg/Lisinopril 2.5 mg, admitted with acute CHF exacerbation. -Acute diastolic heart failure exacerbation, suspect from dietary non compliance ([place] food) in the setting of severe MR/TR/pul HTN -Bilateral pleural effusions -Severe Mitral regurgitation -Moderate to severe tricuspid regurgitation -Severe pulmonary HTN -Paroxysmal Afib s/p PPM -Recurrent UTIs -Transaminitis -Progressive dementia Plan: Volume status/breathing improved. Lasix 40 mg IV daily, strict I/os, daily weights. Recent 2D echo. Dietary counseling, nutrition consult Cardiology input noted. Continue metoprolol/cardizem/lisinopril as tolerated. Apixaban DVTPPX as above Code status: Wants to be full code. Daughter Isa Phan HCP. OOB, PT eval, will need home oxygen eval prior to dc. Dispo patient has 24 hour home health physical therapist. Family wants to take patient home when improved dc planning in 24-48 hours if continues to improve. Discussed with patient and nursing, all questions answered.
--- NOTE | 2019-02-06 13:12 | EKG ---
Test Reason : Blood Pressure : / mmHG Vent. Rate : 060 BPM Atrial Rate : 060 BPM P-R Int : 178 ms QRS Dur : 098 ms QT Int : 482 ms P-R-T Axes : 064 052 004 degrees QTc Int : 482 ms Atrial-paced rhythm T WAVE ABNORMALITY, CONSIDER ANTERIOR ISCHEMIA PROLONGED QT ABNORMAL ECG WHEN COMPARED WITH ECG OF 05-FEB-2019 08:50, COMPARED TO EKG NO SIGNIFICANT CHANGE IS FOUND Confirmed by CLYDE MARIA MD ([id number]) on 02/06/2019 1:12:05 PM Referred By: CHAYA SAM Confirmed By:CLYDE MARIA MD
[2019-02-06] MEDS: ATORVASTATIN CA 10 MG TABLET (FP) PO SCH (21:16)
--- NOTE | 2019-02-07 01:56 | PN ---
Progress Note (short form) - Note Progress Note: Received a call form nurse patient stating that patient was complaining of having trouble breathing. Patient seen at bedside. Patient was nervous, stating that she was scared and felt that she was not breathing well. Reassured patient that her lung sounds were good, her oxygen saturation was 99% , and that she has staff looking after her. Patient calmed down after reassurance and was then asking for medication to help her sleep. Vitals: 104/59, 60HR, 99%o2 Physical exam: General: nervous, mild distress HEENT: NC/AT, PERRL, no cervical lymphadenopathy, supple neck Cardio: 3/6 systolic murmur, regular rate Resp: CTA B/L, no wheezes, rales, or rhonchi Abd: soft, nondistended
[2019-02-07] MEDS ORDERED: MELATONIN 1 MG TABLET PO ONE (01:58)
[2019-02-07 07:37] LABS: CALCIUM 8.1 mg/dL (8.5-10.1); CREATININE 1.1 mg/dL (0.55-1.3); MAGNESIUM 1.9 mg/dL (1.8-2.4); PHOSPHOROUS 3.9 mg/dL (2.5-4.9); POTASSIUM 3.4 mmol/L (3.5-5.1)
[2019-02-07] MEDS ORDERED: POTASSIUM CHLORIDE TABS 20 MEQ TABLET.ER (FP) PO ONE ×2 (08:30→09:45)
--- NOTE | 2019-02-07 08:40 | PN ---
Teaching Attending Note Name of Resident: Jose Abrams ATTENDING PHYSICIAN STATEMENT I saw and evaluated the patient. I reviewed the resident's note and discussed the case with the resident. I agree with the resident's findings and plan as documented. SUBJECTIVE: patient seen and examined, still with intermittent episodes of dyspnea. OBJECTIVE: Vital Signs Period Temp Pulse Resp BP Sys/Rice Pulse Ox Last 24 Hr 97.4 F-98.3 F 60-62 18-22 94-117/5-68 96-98 Intake & Output 02/04/19 02/05/19 02/06/19 02/07/19 23:59 23:59 23:59 23:59 Intake Total 550 605 140 Output Total 1900 300 Balance 550 -1295 -160 Weight 142 lb 141 lb 140 lb 4 oz General: sitting in chair in no acute distress neck: soft, supple, improved Neck vein distension JVD upto 7 cm CVS:S1S2 regular, systolic decrescendo murmur in mitral/tricuspid regions, systolic crescendo/decrescendo murmur in aortic/pulmonary region Chest: decreased breath sounds as bases, markedly improved fine rales and air entry, no wheezing Extremities: 1+ pedal pitting edema with varicosities and ecchymotic areas Active Medications Apixaban (Eliquis -) 2.5 mg PO BID [facility] Last Admin: 02/06/19 21:16 Dose: 2.5 mg Atorvastatin Calcium (Lipitor -) 10 mg PO HS [facility] Last Admin: 02/06/19 21:16 Dose: 10 mg Cyanocobalamin (Vitamin B12 -) 5,000 mcg PO DAILY [facility] Last Admin: 02/06/19 09:31 Dose: 5,000 mcg Diltiazem HCl (Cardizem Cd -) 240 mg PO DAILY [facility] Last Admin: 02/06/19 09:31 Dose: 240 mg Donepezil HCl (Aricept -) 10 mg PO DAILY [facility] Last Admin: 02/06/19 09:30 Dose: 10 mg Ferrous Sulfate (Feosol -) 325 mg PO BID [facility] Last Admin: 02/06/19 21:16 Dose: 325 mg Furosemide (Lasix Injection -) 20 mg IVPUSH Q24H [facility] Furosemide (Lasix Injection -) 40 mg IVPUSH Q24H [facility] Ipratropium [place] (Atrovent 0.02% Nebulizer -) 1 amp NEB Q6H PRN PRN Reason: DYSPEPSIA Stop: 02/14/19 08:31 Lisinopril (Prinivil) 2.5 mg PO DAILY [facility] Last Admin: 02/06/19 09:31 Dose: 2.5 mg Memantine (Namenda -) 10 mg PO BID [facility] Last Admin: 02/06/19 21:16 Dose: 10 mg Metoprolol Succinate (Toprol Xl -) 25 mg PO BID [facility] Last Admin: 02/06/19 21:16 Dose: 25 mg Pantoprazole Sodium (Protonix -) 40 mg PO DAILY [facility] Last Admin: 02/06/19 09:31 Dose: 40 mg Laboratory Results - last 24 hr 02/06/19 02/07/19 07:27 06:40 Sodium 137 141 Potassium 3.8 3.4 L Chloride 99 102 Carbon Dioxide 32 31 Anion Gap 6 L 8 BUN 24.1 H 20.0 H Creatinine 1.1 1.1 Est GFR (CKD-EPI)AfAm 53.77 53.77 Est GFR (CKD-EPI)NonAf 46.39 46.39 Random Glucose 116 H 101 Calcium 8.6 8.1 L Phosphorus 3.9 3.9 Magnesium 2.2 1.9 Total Bilirubin 0.7 AST 15 ALT 28 Alkaline Phosphatase 113 Total Protein 6.3 L Albumin 3.2 L Telemetry: no events CXR from today, results and images reviewed. ASSESSMENT AND PLAN: 83 yof with PMHx of Progressive Dementia, severe Mitral regurgitation, Moderate to Sev TR, Severe Pul HTN, Paroxysmal Afib s/p PPM, transaminitis, frequent UTI' s, recently admitted t[facility] from 01/26-02/01 with UTI/AMS/CHF/Elevated troponin, d/lorelei on lasix 20 mg/Lisinopril 2.5 mg, admitted with acute CHF exacerbation. -Acute exacerbation of HFpEF, suspect from dietary non compliance ([place] food ) in the setting of severe MR/TR/pul HTN -Bilateral pleural effusions -Severe Mitral regurgitation -Moderate to severe tricuspid regurgitation -Severe pulmonary HTN -Paroxysmal Afib s/p PPM -Recurrent UTIs -Transaminitis -Progressive dementia Plan: Volume status/breathing with some improvement. ongoing episodes of dyspnea, CXR with congestive changes/Effusion Increase lasix to 40 mg IV qam and 20 mg QPM as hemodynamics tolerate. Strict I/os, daily weights. Recent 2D echo. Dietary counseling, nutrition consult Cardiology input noted. Continue metoprolol/cardizem/lisinopril as tolerated. Apixaban DVTPPX as above Code status: Wants to be full code. Daughter Isa Phan HCP. OOB, PT eval, will need home oxygen eval prior to dc. Dispo patient has 24 hour home care companion. Family wants to take patient home when improved dc planning when volume status improved. Discussed with patient and nursing, all questions answered.
[2019-02-07] MEDS ORDERED: PT OWN MED DRAWER 7, Y5N ONE ×2 (09:17→09:26)
[2019-02-07] MEDS: MEMANTINE HCL 10 MG TABLET (FP) PO SCH ×2 (09:20→21:10)
[2019-02-07] MEDS: APIXABAN 2.5 MG TABLET PO SCH ×2 (09:21→21:10)
[2019-02-07] MEDS: CYANOCOBALAMIN 1,000 MCG TABLET (FP) PO SCH (09:21)
[2019-02-07] MEDS: DONEPEZIL HCL 10 MG TABLET (FP) PO SCH (09:21)
[2019-02-07] MEDS: PANTOPRAZOLE 40 MG TABLET (FP) PO SCH (09:21)
[2019-02-07] MEDS: FERROUS SO4 325 MG TABLET (FP) PO SCH ×2 (09:21→21:10)
[2019-02-07] MEDS: FUROSEMIDE 40 MG/4 ML INJECTABLE VIAL IVPUSH SCH (09:22)
[2019-02-07] MEDS: LISINOPRIL 5 MG TABLET (FP) PO SCH (09:23)
[2019-02-07] MEDS: metoPROLOL SUCCINATE 25 MG TAB.SR.24H (FP) PO SCH ×2 (09:23→22:24)
--- NOTE | 2019-02-07 11:37 | PN ---
Progress Note (short form) - Note Progress Note: s: still sob, improving. no chest pain, palps, dizziness Current Medications Apixaban (Eliquis -) 2.5 mg PO BID [facility] Last Admin: 02/07/19 09:21 Dose: 2.5 mg Atorvastatin Calcium (Lipitor -) 10 mg PO HS [facility] Last Admin: 02/06/19 21:16 Dose: 10 mg Cyanocobalamin (Vitamin B12 -) 5,000 mcg PO DAILY [facility] Last Admin: 02/07/19 09:21 Dose: 5,000 mcg Diltiazem HCl (Cardizem Cd -) 240 mg PO DAILY [facility] Last Admin: 02/07/19 09:23 Dose: 240 mg Donepezil HCl (Aricept -) 10 mg PO DAILY [facility] Last Admin: 02/07/19 09:21 Dose: 10 mg Ferrous Sulfate (Feosol -) 325 mg PO BID [facility] Last Admin: 02/07/19 09:21 Dose: 325 mg Furosemide (Lasix Injection -) 20 mg IVPUSH DAILY@1400 [facility] Furosemide (Lasix Injection -) 40 mg IVPUSH DAILY@0600 [facility] Ipratropium [place] (Atrovent 0.02% Nebulizer -) 1 amp NEB Q6H PRN PRN Reason: DYSPEPSIA Stop: 02/14/19 08:31 Lisinopril (Prinivil) 2.5 mg PO DAILY [facility] Last Admin: 02/07/19 09:23 Dose: 2.5 mg Memantine (Namenda -) 10 mg PO BID [facility] Last Admin: 02/07/19 09:20 Dose: 10 mg Metoprolol Succinate (Toprol Xl -) 25 mg PO BID [facility] Last Admin: 02/07/19 09:23 Dose: 25 mg Pantoprazole Sodium (Protonix -) 40 mg PO DAILY [facility] Last Admin: 02/07/19 09:21 Dose: 40 mg Vital Signs Period Temp Pulse Resp BP Sys/Rice Pulse Ox Last 24 Hr 97.4 F-98.3 F 60-62 18-22 94-115/5-66 98-98 Constitutional: Yes: Well Nourished, No Distress, Calm Eyes: Yes: WNL, Conjunctiva Clear HENT: Yes: WNL, Atraumatic, Normocephalic Neck: Yes: WNL, Supple, Trachea Midline Respiratory: Yes: CTA with dec breath sounds at bases bilaterally, poor effort Gastrointestinal: Yes: WNL, Normal Bowel Sounds, Soft. No: Distention, Tenderness Cardiovascular: Yes: Pulse Irregular. No: Regular Rate and Rhythm, Bradycardia , Tachycardia, Gallop, Rub, Varicosities JVD: No Carotid Bruit: No PMI: Non-Displaced Heart Sounds: Yes: S1, S2. No: Split S2, S3, S4, Clicks, Gallop, Rub, Bruit Murmur: Yes: Systolic Murmur. No: Diastolic Murmur Musculoskeletal: Yes: WNL Extremities: Yes: WNL Edema: No Peripheral Pulses WNL: Yes Peripheral Pulses: 2+ Left Doralis Pedis, 2+ Right Dorsalis Pedis Integumentary: Yes: WNL Neurological: Yes: WNL, Alert, Oriented ...Motor Strength: WNL Psychiatric: Yes: WNL, Alert, Oriented tele: sr, occ a pacing ecg: sr, nl intervals no ischemic changes cxr: no chf Echo report from 12/07/18 reviewed: Normal LVEF, LAE, Severe MR w/ posterior leaflet prolapse. 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 Yariel Morfin ), here with sob, orthopnea. acute diastolic chf, MR: -pt with known hx sev MR. MV intervention being deferred by Dr. Cam given pt's progressive decline--outpt f/u with him rec'd. -mild vol overload, cont with iv lasix - inc to 40 mg IV AM and 20 mg IV PM. daily chem7, wt, lytes -no signs acs PAF, prior AV node ablation and PPM 06/2016: -in sr now, cont bb/dilt -cont eliquis htn: -cont home meds hld: -cont statin
--- NOTE | 2019-02-07 12:39 | PN ---
Progress Note (short form) - Note Progress Note: HPI: No acute events overnight, however pt reports not sleeping well in general. Otherwise pt has no lightheadedness, dizziness, shortness of breath, chest pain, palpitations, abdominal pain. Vital Signs Temperature 97.8 F 02/07/19 08:03 Pulse Rate 60 02/07/19 08:03 Respiratory Rate 20 02/07/19 08:03 Blood Pressure 105/56 L 02/07/19 09:35 O2 Sat by Pulse Oximetry (%) 98 02/07/19 09:00 Gen: NAD, awake, alert, sitting OOB to chair HEENT: NC/AT, EOMI, DIMAS, sclera anicteric, MMM Neck: No JVD LUNGS: rales appreciated at bases b/l. 2LNC, no accessory muscle use CARD: RRR (now in sinus) S1 and S2 normal. 3/6 systolic murmur at apex and tricuspid area of auscultation ABD: Soft, NT/ND normoactive BS, no hepatojugular reflux appreciated, no guarding EXT: No edema noted CBC, BMP 02/06/19 07:27 02/07/19 06:40 Active Mediction Apixaban (Eliquis -) 2.5 mg PO BID [facility] Last Admin: 02/07/19 09:21 Dose: 2.5 mg Atorvastatin Calcium (Lipitor -) 10 mg PO HS [facility] Last Admin: 02/06/19 21:16 Dose: 10 mg Cyanocobalamin (Vitamin B12 -) 5,000 mcg PO DAILY [facility] Last Admin: 02/07/19 09:21 Dose: 5,000 mcg Diltiazem HCl (Cardizem Cd -) 240 mg PO DAILY [facility] Last Admin: 02/07/19 09:23 Dose: 240 mg Donepezil HCl (Aricept -) 10 mg PO DAILY [facility] Last Admin: 02/07/19 09:21 Dose: 10 mg Ferrous Sulfate (Feosol -) 325 mg PO BID [facility] Last Admin: 02/07/19 09:21 Dose: 325 mg Furosemide (Lasix Injection -) 20 mg IVPUSH DAILY@1400 [facility] Furosemide (Lasix Injection -) 40 mg IVPUSH DAILY@0600 [facility] Ipratropium [place] (Atrovent 0.02% Nebulizer -) 1 amp NEB Q6H PRN PRN Reason: DYSPEPSIA Stop: 10/08/19 08:31 Lisinopril (Prinivil) 2.5 mg PO DAILY [facility] Last Admin: 02/07/19 09:23 Dose: 2.5 mg Memantine (Namenda -) 10 mg PO BID [facility] Last Admin: 02/07/19 09:20 Dose: 10 mg Metoprolol Succinate (Toprol Xl -) 25 mg PO BID [facility] Last Admin: 02/07/19 09:23 Dose: 25 mg Pantoprazole Sodium (Protonix -) 40 mg PO DAILY [facility] Last Admin: 02/07/19 09:21 Dose: 40 mg A/P Volume overload 2/2 to HFpEF Pulmonary HTN PAF s/p PPM Mild memory deficits Prolonged QTc HTN HLD --To have another dose of Lasix IVP 20mg at 2pm today. --Change to Lasix 40mg IVP qdaily --Titrate O2 per SpO2 >90% --Putty Glazer consult for counselling on CHF diet --Monitor daily weights and accurate I&O's --Continue Cardizem 240mg BID PO for control --Continue Toprol 25mg BID --Continue Eliquis 2.5mg BID --Continue home antihypertensives --Lisinopril 2.5mg qdaily --Continue Lipitor 10mg HS --Continue home Aricept and Namenda --Iron sulfate BID supplementatoin FEN: Fluids: Avoid; active diuresis Electrolyte abnormalities: None today Nutrition: Cardiac diet PPX: DVT - Eliquis on board GI - Already on Protonix qdaily Dispo: Continue to diuresis and titrate O2 to SpO2 >90% Case discussed with Dr. Stephane Abrams, DO - IM PGY-3
[2019-02-07] MEDS ORDERED: FUROSEMIDE 40 MG/4 ML INJECTABLE VIAL IVPUSH SCH (14:00)
[2019-02-07] MEDS ORDERED: MELATONIN 5 MG TABLETS PO ONE (21:01)
[2019-02-07] MEDS: ATORVASTATIN CA 10 MG TABLET (FP) PO SCH (21:10)
[2019-02-08] MEDS ORDERED: FUROSEMIDE 40 MG/4 ML INJECTABLE VIAL IVPUSH SCH (06:00)
[2019-02-08] MEDS ORDERED: DULoxetine HCL 30 MG CAPSULE.DR PO ONE (06:45)
[2019-02-08] MEDS: IPRATROPIUM BR 0.02% 0.5 MG/2.5 ML VIAL.NEB. NEB PRN ×2 (07:05→11:20)
[2019-02-08 07:33] LABS: HEMATOCRIT 35.8 % (32.4-45.2); HEMOGLOBIN 11.4 GM/dL (10.7-15.3); MCH 30.4 pg (25.7-33.7); MCHC 31.9 g/dl (32.0-36.0); MEAN CELL VOLUME 95.2 fl (80-96); MEAN PLT VOLUME 10.2 fl (7.5-11.1); PLATELET COUNT 234 K/MM3 (134-434); RBC 3.76 M/mm3 (3.60-5.2); RDW 14.2 % (11.6-15.6); WHITE BLOOD COUNT 8.5 K/mm3 (4.0-10.0)
[2019-02-08 08:10] LABS: BLOOD UREA NITROGEN 18.6 mg/dL (7-18); CALCIUM 8.4 mg/dL (8.5-10.1); CREATININE 1.1 mg/dL (0.55-1.3)
[2019-02-08] MEDS: PANTOPRAZOLE 40 MG TABLET (FP) PO SCH (09:56)
[2019-02-08] MEDS: LISINOPRIL 5 MG TABLET (FP) PO SCH (09:56)
[2019-02-08] MEDS: APIXABAN 2.5 MG TABLET PO SCH ×2 (09:57→22:14)
[2019-02-08] MEDS: MEMANTINE HCL 10 MG TABLET (FP) PO SCH ×2 (09:57→22:14)
[2019-02-08] MEDS: DONEPEZIL HCL 10 MG TABLET (FP) PO SCH (09:57)
[2019-02-08] MEDS: FERROUS SO4 325 MG TABLET (FP) PO SCH ×2 (09:57→22:14)
[2019-02-08] MEDS: metoPROLOL SUCCINATE 25 MG TAB.SR.24H (FP) PO SCH ×2 (09:58→22:14)
--- NOTE | 2019-02-08 10:36 | PN ---
Progress Note (short form) - Note Progress Note: s: stable sob. no chest pain, palps, dizziness Current Medications Apixaban (Eliquis -) 2.5 mg PO BID [facility] Last Admin: 02/08/19 09:57 Dose: 2.5 mg Atorvastatin Calcium (Lipitor -) 10 mg PO HS [facility] Last Admin: 02/07/19 21:10 Dose: 10 mg Cyanocobalamin (Vitamin B12 -) 2,000 mcg PO DAILY [facility] Diltiazem HCl (Cardizem Cd -) 240 mg PO DAILY [facility] Last Admin: 02/08/19 09:57 Dose: Not Given Donepezil HCl (Aricept -) 10 mg PO DAILY [facility] Last Admin: 02/08/19 09:57 Dose: 10 mg Ferrous Sulfate (Feosol -) 325 mg PO BID [facility] Last Admin: 02/08/19 09:57 Dose: 325 mg Furosemide (Lasix Injection -) 40 mg IVPUSH BID@0600,1400 [facility] Ipratropium [place] (Atrovent 0.02% Nebulizer -) 1 amp NEB Q6H PRN PRN Reason: DYSPEPSIA Stop: 02/14/19 08:31 Last Admin: 02/08/19 07:05 Dose: 1 amp Lisinopril (Prinivil) 2.5 mg PO DAILY [facility] Last Admin: 02/08/19 09:56 Dose: 2.5 mg Memantine (Namenda -) 10 mg PO BID [facility] Last Admin: 02/08/19 09:57 Dose: 10 mg Metoprolol Succinate (Toprol Xl -) 25 mg PO BID [facility] Last Admin: 02/08/19 09:58 Dose: 25 mg Pantoprazole Sodium (Protonix -) 40 mg PO DAILY [facility] Last Admin: 02/08/19 09:56 Dose: 40 mg Vital Signs Period Temp Pulse Resp BP Sys/Rice Pulse Ox Last 24 Hr 97.9 F-99.0 F 60-65 18-18 76-124/46-64 97 Constitutional: Yes: Well Nourished, No Distress, Calm Eyes: Yes: WNL, Conjunctiva Clear HENT: Yes: WNL, Atraumatic, Normocephalic Neck: Yes: WNL, Supple, Trachea Midline Respiratory: Yes: CTA bibasilar rales Gastrointestinal: Yes: WNL, Normal Bowel Sounds, Soft. No: Distention, Tenderness Cardiovascular: Yes: Pulse Irregular. No: Regular Rate and Rhythm, Bradycardia , Tachycardia, Gallop, Rub, Varicosities JVD: No Carotid Bruit: No PMI: Non-Displaced Heart Sounds: Yes: S1, S2. No: Split S2, S3, S4, Clicks, Gallop, Rub, Bruit Murmur: Yes: Systolic Murmur. No: Diastolic Murmur Edema: No Peripheral Pulses WNL: Yes Peripheral Pulses: 2+ Left Doralis Pedis, 2+ Right Dorsalis Pedis Integumentary: Yes: no jaundice Neurological: Yes: Alert, Oriented Psychiatric: not agitated tele: sr, occ a pacing ecg: sr, nl intervals no ischemic changes cxr: no chf Echo report from 12/07/18 reviewed: Normal LVEF, LAE, Severe MR w/ posterior leaflet prolapse. Severe PHTN Echo here 01/26: similar findings a/p: 83 year old woman pmh Pafib, prior AV node ablation and PPM 06/2016, HTN, HLD, MR followed by outpatient [employer] As[employer]er: [facility] (Dr. Yariel Morfin ), here with sob, orthopnea. acute diastolic chf, MR: -pt with known hx sev MR. MV intervention being deferred by Dr. Cam given pt's progressive decline--outpt f/u with him rec'd. -weight stable, Cr stable, still SOB - inc lasix to 40 mg IV BID daily chem7, wt , lytes PAF, prior AV node ablation and PPM 06/2016: -in sr now, cont bb/dilt -cont eliquis htn: -cont home meds hld: -cont statin
[2019-02-08] MEDS: CYANOCOBALAMIN 1,000 MCG TABLET (FP) PO SCH (10:52)
--- NOTE | 2019-02-08 13:41 | PN ---
Progress Note (short form) - Note Progress Note: HPI: No acute events overnight. In morning patient very anxious and reports slight shortness of breath. Pt VSS during episode and patient able to speak in clear sentences. Pt denied any dizziness, hest pain, palpitations, abdominal pain, back pain, diaphoresis. Upon f/u pt was calm and had no shortness of breath. Vital Signs Temperature 97.5 F L 02/08/19 10:00 Pulse Rate 60 02/08/19 10:00 Respiratory Rate 18 02/08/19 10:00 Blood Pressure 103/65 02/08/19 10:00 O2 Sat by Pulse Oximetry (%) 95 02/08/19 09:00 Gen: NAD, awake, alert, sitting up in bed HEENT: NC/AT,DIMAS, sclera anicteric, MMM Neck: No JVD LUNGS: rales appreciated at bases b/l. 2LNC, no accessory muscle use CARD: RRR (now in sinus) S1 and S2 normal. 3/6 systolic murmur at apex and tricuspid area of auscultation ABD: Soft, NT/ND normoactive BS, no hepatojugular reflux appreciated, no guarding EXT: No edema noted CBC, BMP 02/08/19 06:50 02/08/19 06:50 Active Mediction Apixaban (Eliquis -) 2.5 mg PO BID [facility] Last Admin: 02/07/19 09:21 Dose: 2.5 mg Atorvastatin Calcium (Lipitor -) 10 mg PO HS [facility] Last Admin: 02/06/19 21:16 Dose: 10 mg Cyanocobalamin (Vitamin B12 -) 5,000 mcg PO DAILY [facility] Last Admin: 02/07/19 09:21 Dose: 5,000 mcg Diltiazem HCl (Cardizem Cd -) 240 mg PO DAILY [facility] Last Admin: 02/07/19 09:23 Dose: 240 mg Donepezil HCl (Aricept -) 10 mg PO DAILY [facility] Last Admin: 02/07/19 09:21 Dose: 10 mg Ferrous Sulfate (Feosol -) 325 mg PO BID [facility] Last Admin: 02/07/19 09:21 Dose: 325 mg Furosemide (Lasix Injection -) 20 mg IVPUSH DAILY@1400 [facility] Furosemide (Lasix Injection -) 40 mg IVPUSH DAILY@0600 [facility] Ipratropium [place] (Atrovent 0.02% Nebulizer -) 1 amp NEB Q6H PRN PRN Reason: DYSPEPSIA Stop: 02/14/19 08:31 Lisinopril (Prinivil) 2.5 mg PO DAILY [facility] Last Admin: 02/07/19 09:23 Dose: 2.5 mg Memantine (Namenda -) 10 mg PO BID [facility] Last Admin: 02/07/19 09:20 Dose: 10 mg Metoprolol Succinate (Toprol Xl -) 25 mg PO BID [facility] Last Admin: 02/07/19 09:23 Dose: 25 mg Pantoprazole Sodium (Protonix -) 40 mg PO DAILY [facility] Last Admin: 02/07/19 09:21 Dose: 40 mg A/P Volume overload 2/2 to HFpEF Pulmonary HTN PAF s/p PPM Mild memory deficits Prolonged QTc HTN HLD Anxiety --Lasix 40mg IVP BID --Titrate O2 per SpO2 >90% --Patient Financial Coordinator consult for counselling on CHF diet --Monitor daily weights and accurate I&O's --Continue Cardizem 240mg BID PO for control --Continue Toprol 25mg BID --Continue Eliquis 2.5mg BID --Continue home antihypertensives --Lisinopril 2.5mg qdaily --Monitor hemodynamic response to Lasix 40mg BID and hold Lisinopril if <90 SBP --Continue Lipitor 10mg HS --Continue home Aricept and Namenda --Iron sulfate BID supplementation --Added Duloxetin 30mg qdaily for anxiety FEN: Fluids: Avoid; active diuresis Electrolyte abnormalities: None today Nutrition: Cardiac diet PPX: DVT - Eliquis on board GI - Already on Protonix qdaily Dispo: Continue to diuresis and titrate O2 to SpO2 >90% Case discussed with Dr. Agustin Abrams, DO - IM PGY-3 <Jose Abrams - Last Filed: 02/08/19 14:05> - Note Progress Note: Remains on O2 with some crackles on exam, but no large desats. Pending palliative care consultation. Poor insight to overall fucntion. Known to me from prior admission-fatigue she noted continues and is likely secondary to her heart. Underlying dementia noted. No issues with HR. May require placement. Continue lasix per cardiology for volume overload; likely multifactoral with underlying cardiac structural abnormalities Continue duloxetine, toprol, lpril, eliquis,. VS labs and imaging reviewed NAD, AAO x2, on NC, pleasant mood Minor crackles, w/ sym exp S1/2, slight sys mrm NT ND +BS Trace LE edema vs. dependent No new neurologic deficits noted. Please refer to problem list and note from resident for further discussion. I personally verified all friend historical details as well as all friend exam findings I personally reviewed all diagnostic studies. <Ariel Velez - Last Filed: 02/08/19 19:30>
[2019-02-08] MEDS: FUROSEMIDE 40 MG/4 ML INJECTABLE VIAL IVPUSH SCH (15:16)
[2019-02-08] MEDS: ATORVASTATIN CA 10 MG TABLET (FP) PO SCH (22:14)
[2019-02-08] MEDS ORDERED: MELATONIN 1 MG TABLET PO ONE (22:45)
[2019-02-09] MEDS: FUROSEMIDE 40 MG/4 ML INJECTABLE VIAL IVPUSH SCH (05:32)
[2019-02-09 06:09] LABS: HEMATOCRIT 34.8 % (32.4-45.2); HEMOGLOBIN 11.6 GM/dL (10.7-15.3); MCH 31.2 pg (25.7-33.7); MCHC 33.3 g/dl (32.0-36.0); MEAN CELL VOLUME 93.7 fl (80-96); MEAN PLT VOLUME 10.1 fl (7.5-11.1); PLATELET COUNT 231 K/MM3 (134-434); RBC 3.71 M/mm3 (3.60-5.2); RDW 14.9 % (11.6-15.6); WHITE BLOOD COUNT 9.2 K/mm3 (4.0-10.0)
[2019-02-09] MEDS: IPRATROPIUM BR 0.02% 0.5 MG/2.5 ML VIAL.NEB. NEB PRN (06:18)
[2019-02-09 06:41] LABS: BLOOD UREA NITROGEN 17.7 mg/dL (7-18); CALCIUM 8.6 mg/dL (8.5-10.1); CREATININE 1.1 mg/dL (0.55-1.3); MAGNESIUM 1.8 mg/dL (1.8-2.4); PHOSPHOROUS 3.8 mg/dL (2.5-4.9); POTASSIUM 4.3 mmol/L (3.5-5.1)
--- NOTE | 2019-02-09 07:55 | PN ---
Progress Note (short form) - Note Progress Note: HPI: Pt reported trouble sleeping last night, however not anxious this morning. Pt has improvement of breathing. Denies chest pain. No other complaints Vital Signs Temperature 98.2 F 02/09/19 09:16 Pulse Rate 76 02/09/19 09:16 Respiratory Rate 18 02/09/19 09:16 Blood Pressure 116/59 L 02/09/19 09:16 O2 Sat by Pulse Oximetry (%) 97 02/09/19 09:18 Gen: NAD, awake, alert, sitting up in bed HEENT: NC/AT,DIMAS, sclera anicteric, MMM Neck: No JVD LUNGS: Improved aeration of bases b/l. 2LNC, no accessory muscle use CARD: RRR S1 and S2 normal. 3/6 systolic murmur at apex and tricuspid area of auscultation ABD: Soft, NT/ND normoactive BS, no hepatojugular reflux appreciated, no guarding EXT: No edema noted CBC, BMP 02/09/19 05:40 02/09/19 05:40 Active Medications Apixaban (Eliquis -) 2.5 mg PO BID [facility] Last Admin: 02/09/19 09:12 Dose: 2.5 mg Atorvastatin Calcium (Lipitor -) 10 mg PO HS [facility] Last Admin: 02/08/19 22:14 Dose: 10 mg Cyanocobalamin (Vitamin B12 -) 2,000 mcg PO DAILY [facility] Last Admin: 02/09/19 09:11 Dose: 2,000 mcg Diltiazem HCl (Cardizem Cd -) 240 mg PO DAILY [facility] Last Admin: 02/09/19 09:12 Dose: 240 mg Donepezil HCl (Aricept -) 10 mg PO DAILY [facility] Last Admin: 02/09/19 09:13 Dose: 10 mg Duloxetine HCl (Cymbalta -) 30 mg PO DAILY [facility] Last Admin: 02/09/19 09:13 Dose: 30 mg Ferrous Sulfate (Feosol -) 325 mg PO BID [facility] Last Admin: 02/09/19 09:13 Dose: 325 mg Furosemide (Lasix Injection -) 40 mg IVPUSH DAILY [facility] Last Admin: 02/09/19 09:07 Dose: Not Given Ipratropium [place] (Atrovent 0.02% Nebulizer -) 1 amp NEB Q6H PRN PRN Reason: DYSPEPSIA Stop: 02/14/19 08:31 Last Admin: 02/09/19 06:18 Dose: 1 amp Memantine (Namenda -) 10 mg PO BID [facility] Last Admin: 02/09/19 09:13 Dose: 10 mg Metoprolol Succinate (Toprol Xl -) 25 mg PO BID [facility] Last Admin: 02/09/19 09:12 Dose: 25 mg Pantoprazole Sodium (Protonix -) 40 mg PO DAILY [facility] Last Admin: 02/09/19 09:12 Dose: 40 mg A/P Volume overload 2/2 to HFpEF Pulmonary HTN PAF s/p PPM Mild memory deficits Prolonged QTc HTN HLD Anxiety --Decreased to Lasix daily due to alkalotic contraction noted on labs --Today's CXR reviewed with improvement of effusion most notably RLL --Titrate O2 per SpO2 >90% --Monitor daily weights --Weight noted to be decreased past previous discharge: 63kg --Continue Cardizem 240mg BID PO for control --Continue Toprol 25mg BID --Continue Eliquis 2.5mg BID --Held Lisinopril 2.5mg qdaily daily due to low BP; can restart when hemodynamics improve --Continue Lipitor 10mg HS --Continue home Aricept and Namenda --Iron sulfate BID supplementation --Improved anxiety with Duloxetine 30mg qdaily so far and reorientation FEN: Fluids: Avoid; active diuresis Electrolyte abnormalities: None today Nutrition: Cardiac diet PPX: DVT - Eliquis on board GI - Already on Protonix qdaily Dispo: Diuresis and oxygen requirement titrations Case discussed with Dr. Agustin Abrams, DO - IM PGY-3 <Jose Abrams - Last Filed: 02/09/19 09:28> - Note Progress Note: Overall her mentation is the same when I saw her, but she tends to be worse in the morning and I did not have the opportunity to stop by in the PM hours. Mrs. Phan overall is pleasant and remains in good spirits. On O2 and attempting to wean off. Given the repeated holding of PM diuresis and increase in bicarb despite (low normal BPs expected), she is overall stable. VS, labs, imaging reviewed Overall agree with the resident exam NAD, AAOx2-3, on O2 at 2L RRR s1/2 no mgr NC AT EOMI PERRLA NT ND +BS CN2-12 wnl, no fnd Normal mood, appropriate behavior, no acute worsening of mentation A/P: Agree with thorough problem list. Would comment that if BID diuresis is resumed we need to pursue PM dose unless CV is consulted and specifically directs NOT to administer. Contractility and it's relation to volume should be noted by treating resident team. -Consulting pulmonary medicine for further recommendations regarding optimization -Monitor on medicine service; continues to meet requirements for inpatient care and monitoring. DVT px: eliquis GI px: Not technically indicated* but is on protonix FENA accurate; Is and Os and QD weights noted. <Ariel Velez - Last Filed: 02/09/19 23:02>
--- NOTE | 2019-02-09 09:08 | PN ---
Progress Note, Physician Chief Complaint: sob History of Present Illness: remains sob with minimal activity--not improved vs DOA no cp, palpit, syncope remote ex cigs - Current Medication List Current Medications: Active Medications Apixaban (Eliquis -) 2.5 mg PO BID [facility] Last Admin: 02/08/19 22:14 Dose: 2.5 mg Atorvastatin Calcium (Lipitor -) 10 mg PO HS [facility] Last Admin: 02/08/19 22:14 Dose: 10 mg Cyanocobalamin (Vitamin B12 -) 2,000 mcg PO DAILY [facility] Diltiazem HCl (Cardizem Cd -) 240 mg PO DAILY [facility] Last Admin: 02/08/19 09:57 Dose: Not Given Donepezil HCl (Aricept -) 10 mg PO DAILY [facility] Last Admin: 02/08/19 09:57 Dose: 10 mg Duloxetine HCl (Cymbalta -) 30 mg PO DAILY [facility] Ferrous Sulfate (Feosol -) 325 mg PO BID [facility] Last Admin: 02/08/19 22:14 Dose: 325 mg Furosemide (Lasix Injection -) 40 mg IVPUSH DAILY [facility] Last Admin: 02/09/19 09:07 Dose: Not Given Ipratropium [place] (Atrovent 0.02% Nebulizer -) 1 amp NEB Q6H PRN PRN Reason: DYSPEPSIA Stop: 02/14/19 08:31 Last Admin: 02/09/19 06:18 Dose: 1 amp Memantine (Namenda -) 10 mg PO BID [facility] Last Admin: 02/08/19 22:14 Dose: 10 mg Metoprolol Succinate (Toprol Xl -) 25 mg PO BID [facility] Last Admin: 02/08/19 22:14 Dose: 25 mg Pantoprazole Sodium (Protonix -) 40 mg PO DAILY [facility] Last Admin: 02/08/19 09:56 Dose: 40 mg - Objective Vital Signs: Vital Signs Temperature 98.0 F 02/09/19 05:26 Pulse Rate 74 02/09/19 05:26 Respiratory Rate 18 02/09/19 05:26 Blood Pressure 107/66 02/09/19 05:26 O2 Sat by Pulse Oximetry (%) 98 02/08/19 21:00 Constitutional: Yes: No Distress, Calm Eyes: No: Sclera Icterus HENT: No: Nasal Congestion Cardiovascular: Yes: Regular Rate and Rhythm, JVD, Murmur (loud MR murmur at apex), S1, S2, Other (PMI non diplaced). No: Gallop Respiratory: Yes: CTA Bilaterally. No: Accessory Muscle Use, Rales, Wheezes Gastrointestinal: Yes: Normal Bowel Sounds, Soft. No: Tenderness Musculoskeletal: Yes: Other (No kyphosis) Extremities: No: Cool, Cyanosis Edema: No Integumentary: No: Jaundice Neurological: Yes: Alert, Oriented (x3) Psychiatric: No: Agitated Labs: CBC, BMP 02/09/19 05:40 02/09/19 05:40 Assessment/Plan cxr: no chf Echo report from 12/07/18 reviewed: Normal LVEF, LAE, Severe MR w/ posterior leaflet prolapse. Severe PHTN Echo here 01/26: similar findings tele: NSR. NSVT x 8b a/p: 83 year old woman pmh Pafib, prior AV node ablation and PPM 06/2016, HTN, HLD, MR followed by outpatient [facility] Cl[facility]: [facility] (Dr. Yariel Morfin ), here with sob, orthopnea. acute diastolic chf, severe MR: -recently here with fatigue > sob. no chf noted on CXR but moderate effusions on CT then--diuresed. -now back with sob/orthopnea, decompensated HFpEF sec to severe MR. -pt has been disc'd with the primary cardio (dr bland)--MV intervention being deferred due to recent progressive clinical decline--outpt f/u with him rec'd. -BNP 13K--rpt ordered -no wts recorded last admit. currently 141-->139 with diuresis. -remains overloaded with sob, JVD. -reports signif subjective diuresis to lasix 40 IV qd with bp's mostly 80s-110. note: was not increased to bid dosing yest due to soft BPs. -hold diltiazem CD 240, decr metoprolol 25 bid to 12.5 bid to allow bp room for diuresis--increase lasix to 40 iv BID -cont daily weights -if cannot adequately diurese and/or hypotension supervenes, there will need to be a discussion with pt and family regarding goals of care (hospice vs reconsider invasive MV treatment) PAF, prior AV node ablation and PPM 06/2016: -in sr here -d/c diltiazem (hypotension), decr metopr to 12.5 bid -cont eliquis VTach: -NSVT on tele -K/Mag per usual aggressive targets (08/09) -low dose BB as soft bp's allow htn: -cont home meds hld: -cont statin
[2019-02-09] MEDS: CYANOCOBALAMIN 1,000 MCG TABLET (FP) PO SCH (09:11)
[2019-02-09] MEDS: PANTOPRAZOLE 40 MG TABLET (FP) PO SCH (09:12)
[2019-02-09] MEDS: APIXABAN 2.5 MG TABLET PO SCH ×2 (09:12→21:30)
[2019-02-09] MEDS: metoPROLOL SUCCINATE 25 MG TAB.SR.24H (FP) PO SCH ×2 (09:12→21:32)
[2019-02-09] MEDS: FERROUS SO4 325 MG TABLET (FP) PO SCH ×2 (09:13→21:31)
[2019-02-09] MEDS: DULoxetine HCL 30 MG CAPSULE.DR PO SCH (09:13)
[2019-02-09] MEDS: DONEPEZIL HCL 10 MG TABLET (FP) PO SCH (09:13)
[2019-02-09] MEDS: MEMANTINE HCL 10 MG TABLET (FP) PO SCH ×2 (09:13→21:32)
[2019-02-09] MEDS ORDERED: FUROSEMIDE 40 MG/4 ML INJECTABLE VIAL IVPUSH SCH (10:00)
[2019-02-09] MEDS ORDERED: MAGNESIUM SULF 50% (8.12 MEQ/2 ML-1 GM VIAL) IVPB ONE (11:00)
[2019-02-09] MEDS ORDERED: FUROSEMIDE 40 MG/4 ML INJECTABLE VIAL IVPUSH ONE (16:00)
[2019-02-09] MEDS: ATORVASTATIN CA 10 MG TABLET (FP) PO SCH (21:32)
[2019-02-10] MEDS: IPRATROPIUM BR 0.02% 0.5 MG/2.5 ML VIAL.NEB. NEB PRN (04:28)
[2019-02-10 07:35] LABS: BLOOD UREA NITROGEN 20.7 mg/dL (7-18); CALCIUM 9.2 mg/dL (8.5-10.1); CREATININE 1.1 mg/dL (0.55-1.3); MAGNESIUM 2.1 mg/dL (1.8-2.4); POTASSIUM 4.6 mmol/L (3.5-5.1)
[2019-02-10] MEDS ORDERED: FUROSEMIDE 40 MG/4 ML INJECTABLE VIAL ONE (07:43)
[2019-02-10] MEDS: FUROSEMIDE 40 MG/4 ML INJECTABLE VIAL IVPUSH SCH ×3 (07:47→14:40)
[2019-02-10] MEDS: APIXABAN 2.5 MG TABLET PO SCH ×2 (09:25→21:02)
[2019-02-10] MEDS: DULoxetine HCL 30 MG CAPSULE.DR PO SCH (09:25)
[2019-02-10] MEDS: metoPROLOL SUCCINATE 25 MG TAB.SR.24H (FP) PO SCH ×2 (09:25→21:02)
[2019-02-10] MEDS: MEMANTINE HCL 10 MG TABLET (FP) PO SCH ×2 (09:25→21:02)
[2019-02-10] MEDS: FERROUS SO4 325 MG TABLET (FP) PO SCH ×2 (09:25→21:02)
[2019-02-10] MEDS: DONEPEZIL HCL 10 MG TABLET (FP) PO SCH (09:26)
[2019-02-10] MEDS: CYANOCOBALAMIN 1,000 MCG TABLET (FP) PO SCH (09:26)
[2019-02-10] MEDS: PANTOPRAZOLE 40 MG TABLET (FP) PO SCH (09:26)
--- NOTE | 2019-02-10 10:00 | PN ---
Progress Note, Physician Chief Complaint: weight down a pound She is feeling more SOB TELE: NSR, VPS, occ couplets - Current Medication List Current Medications: Active Medications Apixaban (Eliquis -) 2.5 mg PO BID [facility] Last Admin: 02/10/19 09:25 Dose: 2.5 mg Atorvastatin Calcium (Lipitor -) 10 mg PO HS [facility] Last Admin: 02/09/19 21:32 Dose: 10 mg Cyanocobalamin (Vitamin B12 -) 2,000 mcg PO DAILY [facility] Last Admin: 02/10/19 09:26 Dose: 2,000 mcg Donepezil HCl (Aricept -) 10 mg PO DAILY [facility] Last Admin: 02/10/19 09:26 Dose: 10 mg Duloxetine HCl (Cymbalta -) 30 mg PO DAILY [facility] Last Admin: 02/10/19 09:25 Dose: 30 mg Ferrous Sulfate (Feosol -) 325 mg PO BID [facility] Last Admin: 02/10/19 09:25 Dose: 325 mg Furosemide (Lasix Injection -) 40 mg IVPUSH BIDLASIX [facility] Last Admin: 02/10/19 09:05 Dose: Not Given Ipratropium [place] (Atrovent 0.02% Nebulizer -) 1 amp NEB Q6H PRN PRN Reason: DYSPEPSIA Stop: 02/14/19 08:31 Last Admin: 02/10/19 04:28 Dose: 1 amp Memantine (Namenda -) 10 mg PO BID [facility] Last Admin: 02/10/19 09:25 Dose: 10 mg Metoprolol Succinate (Toprol Xl -) 12.5 mg PO BID [facility] Last Admin: 02/10/19 09:25 Dose: 12.5 mg Pantoprazole Sodium (Protonix -) 40 mg PO DAILY [facility] Last Admin: 02/10/19 09:26 Dose: 40 mg - Objective Vital Signs: Vital Signs Temperature 97.7 F 02/10/19 07:59 Pulse Rate 73 02/10/19 07:59 Respiratory Rate 24 H 02/10/19 07:59 Blood Pressure 129/77 02/10/19 07:59 O2 Sat by Pulse Oximetry (%) 94 L 02/10/19 07:59 Constitutional: Yes: Calm Eyes: Yes: Conjunctiva Clear Cardiovascular: Yes: Regular Rate and Rhythm Respiratory: Yes: Other (decreased at bases) Gastrointestinal: Yes: Soft Edema: No Neurological: Yes: Alert, Oriented Labs: CBC, BMP 02/09/19 05:40 02/10/19 05:53 Laboratory Tests 01/26/19 02/09/19 02/10/19 18:06 05:40 05:53 WBC 9.2 Hct 34.8 Plt Count 231 Lymphocytes % 13.9 Sodium 137 Potassium 4.6 BUN 20.7 H Creatinine 1.1 Magnesium 2.1 - ....Imaging EKG: Image Reviewed Assessment/Plan a/p: 83 year old woman pmh Pafib, prior AV node ablation and PPM 06/2016, HTN, HLD, MR followed by outpatient Records Management [facility] ), here with sob, orthopnea. acute diastolic chf, severe MR: -recently here with fatigue > sob. no chf noted on CXR but moderate effusions on CT then--diuresed. -now back with sob/orthopnea, decompensated HFpEF sec to severe MR. -pt has been disc'd with the primary cardio (dr bland)--MV intervention being deferred due to recent progressive clinical decline--outpt f/u with him rec'd. -BNP 13K--rpt ordered -Weight down some but still SOB -remains overloaded with sob, JVD. -Cont Lasix 40mg IV BID -cont daily weights -if cannot adequately diurese and/or hypotension supervenes, there will need to be a discussion with pt and family regarding goals of care (hospice vs reconsider invasive MV treatment) PAF, prior AV node ablation and PPM 06/2016: -in sr here -d/c diltiazem (hypotension), decr metopr to 12.5 bid -cont eliquis VTach: -NSVT on tele -K/Mag per usual aggressive targets (08/09) -low dose BB as soft bp's allow htn: -cont home meds hld: -cont statin
--- NOTE | 2019-02-10 10:15 | PN ---
Teaching Attending Note Name of Resident: Jose Abrams ATTENDING PHYSICIAN STATEMENT I saw and evaluated the patient. I reviewed the resident's note and discussed the case with the resident. I agree with the resident's findings and plan as documented. SUBJECTIVE: Patient reports she doesn't feel well this morning. She is coughing. She says she feels short of breath. She denies chest pain, palpitations. OBJECTIVE: Vital Signs Period Temp Pulse Resp BP Sys/Rice Pulse Ox Last 24 Hr 97.6 F-98.2 F 65-76 16-24 103-129/52-77 94-96 HEART: S1S2, RRR LUNGS: Bibasilar rales ABDOMEN: Soft, non-tender, non-distended, normal BS EXTREMITIES: Trace edema Laboratory Results - last 24 hr 02/10/19 05:53 Sodium 137 Potassium 4.6 Chloride 96 L Carbon Dioxide 30 Anion Gap 11 BUN 20.7 H Creatinine 1.1 Est GFR (CKD-EPI)AfAm 53.77 Est GFR (CKD-EPI)NonAf 46.39 Random Glucose 168 H Calcium 9.2 Magnesium 2.1 Current Medications Generic Name Dose Route Start Last Admin Trade Name Freq PRN Reason Stop Dose Admin Apixaban 2.5 mg 02/05/19 22:00 02/10/19 09:25 Eliquis - PO 2.5 mg BID PETTY Administration Atorvastatin Calcium 10 mg 02/05/19 22:00 02/09/19 21:32 Lipitor - PO 10 mg HS PETTY Administration Cyanocobalamin 2,000 mcg 02/08/19 10:04 02/10/19 09:26 Vitamin B12 - PO 2,000 mcg DAILY PETTY Administration Donepezil HCl 10 mg 02/06/19 10:00 02/10/19 09:26 Aricept - PO 10 mg DAILY PETTY Administration Duloxetine HCl 30 mg 02/09/19 10:00 02/10/19 09:25 Cymbalta - PO 30 mg DAILY PETTY Administration Ferrous Sulfate 325 mg 02/05/19 22:00 02/10/19 09:25 Feosol - PO 325 mg BID PETTY Administration Furosemide 40 mg 02/10/19 10:00 02/10/19 09:05 Lasix Injection - IVPUSH Not Given BIDLASIX PETTY Ipratropium [place] 1 amp 02/07/19 08:31 02/10/19 04:28 Atrovent 0.02% Nebulizer - NEB 02/14/19 08:31 1 amp Q6H PRN Administration DYSPEPSIA Memantine 10 mg 02/05/19 22:00 02/10/19 09:25 Namenda - PO 10 mg BID PETTY Administration Metoprolol Succinate 12.5 mg 02/09/19 10:33 02/10/19 09:25 Toprol Xl - PO 12.5 mg BID PETTY Administration Pantoprazole Sodium 40 mg 02/06/19 10:00 02/10/19 09:26 Protonix - PO 40 mg DAILY PETTY Administration ASSESSMENT AND PLAN: This is an 83 year old woman with a history of PAF, AV node ablation, pacemaker , HTN, hyperlipidemia, mitral regurgitation, anxiety, dementia who presented to the ED with SOB. 1. Acute on chronic diastolic heart failure - Continue Lasix 40 mg IV bid - Check CXR - Continue to monitor weight, I&O 2. Non-sustained ventricular tachycardia - Continue Toprol XL - Keep Mg>2, K>4 3. Severe mitral regurgitation 4. Severe pulmonary HTN 5. Paroxysmal atrial fibrillation - History of AV node ablation, pacemaker placement - Continue Toprol XL, Eliquis - Cardizem discontinued secondary to hypotension 6. HTN - Continue Toprol XL - Cardizem discontinue secondary to hypotension 7. Hyperlipidemia - Continue Lipitor 8. Anxiety - Continue Cymbalta 9. Dementia - Continue Aricept, Namenda 10. DVT prophylaxis - On Eliquis
--- NOTE | 2019-02-10 10:49 | PN ---
Progress Note (short form) - Note Progress Note: HPI: Increased shortness of breath today, however down by 1lb in weight. Pt is oriented x3, however has memory defects which limits HPI. Vital Signs Temperature 97.7 F 02/10/19 07:59 Pulse Rate 73 02/10/19 07:59 Respiratory Rate 24 H 02/10/19 07:59 Blood Pressure 129/77 02/10/19 07:59 O2 Sat by Pulse Oximetry (%) 94 L 02/10/19 07:59 Gen: NAD, awake, alert, sitting up in bed HEENT: NC/AT,DIMAS, sclera anicteric, MMM Neck: No JVD LUNGS: Rales b/l at the bases. 3LNC, no accessory muscle use CARD: RRR S1 and S2 normal. 3/6 systolic murmur at apex and tricuspid area of auscultation ABD: Soft, NT/ND normoactive BS, no hepatojugular reflux appreciated, no guarding EXT: No edema noted CBC, BMP 02/09/19 05:40 02/10/19 05:53 Active Medications Apixaban (Eliquis -) 2.5 mg PO BID [facility] Last Admin: 02/10/19 09:25 Dose: 2.5 mg Atorvastatin Calcium (Lipitor -) 10 mg PO HS [facility] Last Admin: 02/09/19 21:32 Dose: 10 mg Cyanocobalamin (Vitamin B12 -) 2,000 mcg PO DAILY [facility] Last Admin: 02/10/19 09:26 Dose: 2,000 mcg Donepezil HCl (Aricept -) 10 mg PO DAILY [facility] Last Admin: 02/10/19 09:26 Dose: 10 mg Duloxetine HCl (Cymbalta -) 30 mg PO DAILY [facility] Last Admin: 02/10/19 09:25 Dose: 30 mg Ferrous Sulfate (Feosol -) 325 mg PO BID [facility] Last Admin: 02/10/19 09:25 Dose: 325 mg Furosemide (Lasix Injection -) 40 mg IVPUSH BIDLASIX [facility] Last Admin: 02/10/19 09:05 Dose: Not Given Ipratropium [place] (Atrovent 0.02% Nebulizer -) 1 amp NEB Q6H PRN PRN Reason: DYSPEPSIA Stop: 02/14/19 08:31 Last Admin: 02/10/19 04:28 Dose: 1 amp Memantine (Namenda -) 10 mg PO BID [facility] Last Admin: 02/10/19 09:25 Dose: 10 mg Metoprolol Succinate (Toprol Xl -) 12.5 mg PO BID [facility] Last Admin: 02/10/19 09:25 Dose: 12.5 mg Pantoprazole Sodium (Protonix -) 40 mg PO DAILY [facility] Last Admin: 02/10/19 09:26 Dose: 40 mg A/P Volume overload 2/2 to HFpEF Pulmonary HTN PAF s/p PPM Mild memory deficits Prolonged QTc HTN HLD Anxiety --Heart failure 2/2 to severe MR, however it was discussed prior about deferring valve intervention due to clinical decline --Lasix 40mg IVP BID --Awaiting CXR to be performed; will f/u --Titrate O2 per SpO2 >90% --Monitor daily weights --Continue holding Cardizem for hemodynamics --Decreased Toprol 12.5mg BID to continue --Continue Eliquis 2.5mg BID --Continue Lipitor 10mg HS --Continue home Aricept and Namenda --Iron sulfate BID supplementation --Continue Duloxetine 30mg qdaily FEN: Fluids: Avoid; active diuresis Electrolyte abnormalities: None today Nutrition: Cardiac diet PPX: DVT - Eliquis on board GI - Already on Protonix qdaily Dispo: Diuresis if unable to diure Case discussed with Dr. Linda Abrams, DO - IM PGY-3
--- NOTE | 2019-02-10 11:13 | CON.PULM ---
Consult Consult Specialty:: PULMONARY Referred by:: CARDIO Reason for Consultation:: R/O LUNG DISEASE/PUL HTN/?PE - History of Present Illness Chief Complaint: SOB/CP History of Present Illness: 83 year old woman pmh Pafib, prior AV node ablation and PPM 06/2016, HTN, HLD, severe MR [facility] here with sob, orthopnea. Difficult to obtain detailed hpi due to mild dementia. 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) Cardio/Vascular: Yes: AFIB, HTN, Hyperlipdemia, Mitral Insufficiency (MVR w Mod- Severe MR), Other (AV Node Ablation) Renal/: Yes: UTI Infectious Disease: Yes: Other (UTIS) - Past Surgical History Past Surgical History: Yes: Permanent Pacemaker - Alcohol/Substance Use Hx Alcohol Use: No - Smoking History Smoking history: Former smoker Have you smoked in the past 12 months: No Aproximately how many cigarettes per day: 0 If you are a former smoker, when did you quit?: 30 YEARS AGO - Social History Usual Living Arrangement: Alone ADL: Independent History of Recent Travel: No Home Medications - Allergies Allergies/Adverse Reactions: Allergies Allergy/AdvReac Type Severity Reaction Status Date / Time No Known Allergies Allergy Verified 02/05/19 09:46 - Home Medications Home Medications: Ambulatory Orders Diltiazem HCl [Cartia Xt] 240 mg PO DAILY 06/12/18 Esomeprazole Magnesium 40 mg PO DAILY 06/12/18 Fluoxetine HCl [Prozac] 20 mg PO DAILY 06/12/18 Sucralfate [Carafate -] 1 gm PO TID 06/12/18 Apixaban [Eliquis] 2.5 mg PO BID 10/30/18 Atorvastatin Ca [Lipitor] 10 mg PO HS 10/30/18 Donepezil HCl 10 mg PO DAILY 10/30/18 Memantine HCl 10 mg PO BID 10/30/18 Cyanocobalamin (Vitamin B-12) [Vitamin B12] 5,000 mcg PO DAILY 01/27/19 Iron 325 mg PO BID 01/27/19 Metoprolol Succinate 25 mg PO BID 01/27/19 Lisinopril [Prinivil] 2.5 mg PO DAILY #30 tablet 01/31/19 Furosemide [Lasix] 20 mg PO DAILY #15 tablet 02/01/19 Physical Exam Vital Sings: Vital Signs Temperature 97.7 F 02/10/19 07:59 Pulse Rate 73 02/10/19 07:59 Respiratory Rate 24 H 02/10/19 07:59 Blood Pressure 129/77 02/10/19 07:59 O2 Sat by Pulse Oximetry (%) 94 L 02/10/19 07:59 Constitutional: Yes: Anxious Eyes: Yes: EOM Intact HENT: Yes: Normocephalic Neck: Yes: Trachea Midline Cardiovascular: Yes: S1, S2, Other (paced) Respiratory: Yes: Diminished Gastrointestinal: Yes: Normal Bowel Sounds Edema: LLE: 1+, RLE: 1+ Neurological: Yes: Alert Psychiatric: Yes: Alert Labs: CBC, BMP 02/09/19 05:40 02/10/19 05:53 rest reviewed Imaging - Results Chest X-ray: Report Reviewed, Image Reviewed Cat Scan: Pending Problem List - Problems (1) Pulmonary HTN Code(s): I27.20 - PULMONARY HYPERTENSION, UNSPECIFIED (2) Weakness Code(s): R53.1 - WEAKNESS (3) Atrial fibrillation Code(s): I48.91 - UNSPECIFIED ATRIAL FIBRILLATION Qualifiers: Atrial fibrillation type: paroxysmal Qualified Code(s): I48.0 - Paroxysmal atrial fibrillation (4) HTN (hypertension) Code(s): I10 - ESSENTIAL (PRIMARY) HYPERTENSION (5) Mitral valve regurgitation Code(s): I34.0 - NONRHEUMATIC MITRAL (VALVE) INSUFFICIENCY (6) Pacemaker ECG pattern Code(s): Z95.0 - PRESENCE OF CARDIAC PACEMAKER
--- NOTE | 2019-02-10 11:19 | CON.PULM ---
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) Cardio/Vascular: Yes: AFIB, HTN, Hyperlipdemia, Mitral Insufficiency (MVR w Mod- Severe MR), Other (AV Node Ablation) Renal/: Yes: UTI Infectious Disease: Yes: Other (UTIS) - Past Surgical History Past Surgical History: Yes: Permanent Pacemaker - Alcohol/Substance Use Hx Alcohol Use: No - Smoking History Smoking history: Former smoker Have you smoked in the past 12 months: No Aproximately how many cigarettes per day: 0 If you are a former smoker, when did you quit?: 30 YEARS AGO - Social History Usual Living Arrangement: Alone ADL: Independent History of Recent Travel: No Home Medications - Allergies Allergies/Adverse Reactions: Allergies Allergy/AdvReac Type Severity Reaction Status Date / Time No Known Allergies Allergy Verified 02/05/19 09:46 - Home Medications Home Medications: Ambulatory Orders Diltiazem HCl [Cartia Xt] 240 mg PO DAILY 06/12/18 Esomeprazole Magnesium 40 mg PO DAILY 06/12/18 Fluoxetine HCl [Prozac] 20 mg PO DAILY 06/12/18 Sucralfate [Carafate -] 1 gm PO TID 06/12/18 Apixaban [Eliquis] 2.5 mg PO BID 10/30/18 Atorvastatin Ca [Lipitor] 10 mg PO HS 10/30/18 Donepezil HCl 10 mg PO DAILY 10/30/18 Memantine HCl 10 mg PO BID 10/30/18 Cyanocobalamin (Vitamin B-12) [Vitamin B12] 5,000 mcg PO DAILY 01/27/19 Iron 325 mg PO BID 01/27/19 Metoprolol Succinate 25 mg PO BID 01/27/19 Lisinopril [Prinivil] 2.5 mg PO DAILY #30 tablet 01/31/19 Furosemide [Lasix] 20 mg PO DAILY #15 tablet 02/01/19 Physical Exam Vital Sings: Vital Signs Temperature 97.7 F 02/10/19 07:59 Pulse Rate 73 02/10/19 07:59 Respiratory Rate 24 H 02/10/19 07:59 Blood Pressure 129/77 02/10/19 07:59 O2 Sat by Pulse Oximetry (%) 94 L 02/10/19 07:59 Labs: CBC, BMP 02/09/19 05:40 10/04/19 05:53 Problem List - Problems (1) Pulmonary HTN Code(s): I27.20 - PULMONARY HYPERTENSION, UNSPECIFIED (2) Weakness Code(s): R53.1 - WEAKNESS (3) Atrial fibrillation Code(s): I48.91 - UNSPECIFIED ATRIAL FIBRILLATION Qualifiers: Atrial fibrillation type: paroxysmal Qualified Code(s): I48.0 - Paroxysmal atrial fibrillation (4) HTN (hypertension) Code(s): I10 - ESSENTIAL (PRIMARY) HYPERTENSION (5) Mitral valve regurgitation Code(s): I34.0 - NONRHEUMATIC MITRAL (VALVE) INSUFFICIENCY (6) Pacemaker ECG pattern Code(s): Z95.0 - PRESENCE OF CARDIAC PACEMAKER Assessment/Plan IMP SEVERE PULMONARY HTN LIKELY DUE TO VALVULAR HD(SEVERE MR) CPS/BILATRERAL PL EFFUSIONS ON PREVIOUS CT NO CONTRAST ASHD AFIB S/P AV TEJA ABLATION ,S/P PPM HTN DEMENTIA PREVIOUS + TROPONINS PLAN CONTINUE AC SUPPLEMENTAL O2 RATE CONTROL PER CARDIOLOGY LASIX CHEST CTA MR REPAIR WOULD BE OF BENEFIT IF SHE IS A CANDIDATE Unruly ALVAREZ MD
--- NOTE | 2019-02-10 11:58 | EKG ---
Test Reason : Blood Pressure : / mmHG Vent. Rate : 070 BPM Atrial Rate : 070 BPM P-R Int : 134 ms QRS Dur : 092 ms QT Int : 440 ms P-R-T Axes : 048 063 004 degrees QTc Int : 475 ms NORMAL SINUS RHYTHM POSSIBLE LEFT ATRIAL ENLARGEMENT NONSPECIFIC T WAVE ABNORMALITY ABNORMAL ECG WHEN COMPARED WITH ECG OF 06-FEB-2019 09:16, SINUS RHYTHM HAS REPLACED ELECTRONIC ATRIAL PACEMAKER Confirmed by BRAULIO NDIAYE, YOLY ([id number]) on 02/10/2019 11:58:29 AM Referred By: JESUS HENDERSON DR Confirmed By:YOLY RAMSEY MD
[2019-02-10 13:31] VITALS: BMI 22.9
[2019-02-10] MEDS: ATORVASTATIN CA 10 MG TABLET (FP) PO SCH (21:02)
[2019-02-11] MEDS ORDERED: METOPROLOL TARTRATE 5 MG/5 ML VIAL IVPUSH ONE (00:52)
[2019-02-11] MEDS: FUROSEMIDE 40 MG/4 ML INJECTABLE VIAL IVPUSH SCH ×2 (06:36→14:22)
--- NOTE | 2019-02-11 06:50 | PN ---
Progress Note, Physician Chief Complaint: weight down to 138lbs More comfortable this morning. Yesterday, her initial agitation subsided when arrived. She appeared comfortable and denied any SOB while present. Suspect component of anxiety when she is alone and she also admitted that she is concerned "about my heart" TELE: NSR, rare single PVCs. Occasional V couplets. - Current Medication List Current Medications: Active Medications Apixaban (Eliquis -) 2.5 mg PO BID [facility] Last Admin: 02/10/19 21:02 Dose: 2.5 mg Atorvastatin Calcium (Lipitor -) 10 mg PO HS [facility] Last Admin: 02/10/19 21:02 Dose: 10 mg Cyanocobalamin (Vitamin B12 -) 2,000 mcg PO DAILY [facility] Last Admin: 02/10/19 09:26 Dose: 2,000 mcg Donepezil HCl (Aricept -) 10 mg PO DAILY [facility] Last Admin: 02/10/19 09:26 Dose: 10 mg Duloxetine HCl (Cymbalta -) 30 mg PO DAILY [facility] Last Admin: 02/10/19 09:25 Dose: 30 mg Ferrous Sulfate (Feosol -) 325 mg PO BID [facility] Last Admin: 02/10/19 21:02 Dose: 325 mg Furosemide (Lasix Injection -) 40 mg IVPUSH BIDLASIX [facility] Last Admin: 02/11/19 06:36 Dose: 40 mg Ipratropium [place] (Atrovent 0.02% Nebulizer -) 1 amp NEB Q6H PRN PRN Reason: DYSPEPSIA Stop: 02/14/19 08:31 Last Admin: 02/10/19 04:28 Dose: 1 amp Memantine (Namenda -) 10 mg PO BID [facility] Last Admin: 02/10/19 21:02 Dose: 10 mg Metoprolol Succinate (Toprol Xl -) 12.5 mg PO BID [facility] Last Admin: 02/10/19 21:02 Dose: 12.5 mg Pantoprazole Sodium (Protonix -) 40 mg PO DAILY [facility] Last Admin: 02/10/19 09:26 Dose: 40 mg - Objective Vital Signs: Vital Signs Temperature 98.4 F 02/11/19 06:00 Pulse Rate 92 H 02/11/19 06:00 Respiratory Rate 18 02/11/19 06:00 Blood Pressure 134/73 02/11/19 06:00 O2 Sat by Pulse Oximetry (%) 98 02/10/19 21:00 Constitutional: Yes: No Distress Cardiovascular: Yes: Regular Rate and Rhythm, JVD Respiratory: Yes: Other (lungs actually sound clear, no wheezing. No rales. Perhaps mildly decreased basilar breath sounds.) Gastrointestinal: Yes: Soft Edema: No Neurological: Yes: Alert ...Motor Strength: WNL Labs: CBC, BMP 02/09/19 05:40 02/10/19 05:53 Selected Entries 02/10/19 06:00 Weight 138 lb 12.8 oz Laboratory Tests 02/11/19 02/11/19 06:30 06:30 WBC 12.0 H Hgb 11.8 Plt Count 234 Sodium Pending Potassium Pending BUN Pending Creatinine Pending Magnesium Pending - ....Imaging EKG: Image Reviewed Assessment/Plan a/p: 83 year old woman pmh PAF, prior AV node ablation and PPM 06/2016, HTN, HLD, MR followed by outpatient Lemon Picker: [facility] (Dr. Yariel Morfin), here with sob, orthopnea. acute diastolic chf, severe MR: -Weight down and mild clinical improvement -Creat stable with IV Lasix -Continue current dose; will touch base with Dr. Cam tomorrow and discuss Mitral Clip eval -Try to introduce low dose NILA/ARB over next 24 hours for afterload reduction if BP allows. -if cannot adequately diurese and/or hypotension supervenes, there will need to be a discussion with pt and family regarding goals of care (hospice vs reconsider invasive MV treatment). PAF, prior AV node ablation and PPM 06/2016: -in sr here -d/c diltiazem (hypotension), decr metopr to 12.5 bid, remains in NSR -cont eliquis adjusted for age, weight and renal fx VTach: -NSVT on tele -K/Mag per usual aggressive targets (08/09) -low dose BB as soft bp's allow htn: -cont home meds hld: -cont statin Progressive Cognitive decline: -Followed by Neuro as outpt -This plays into decision re mitral valve intervention: to be addressed again early this week w/ family and her outpt cardio
[2019-02-11 07:50] LABS: HEMATOCRIT 36.3 % (32.4-45.2); HEMOGLOBIN 11.8 GM/dL (10.7-15.3); MCH 30.6 pg (25.7-33.7); MCHC 32.6 g/dl (32.0-36.0); MEAN CELL VOLUME 93.8 fl (80-96); MEAN PLT VOLUME 10.6 fl (7.5-11.1); PLATELET COUNT 234 K/MM3 (134-434); RBC 3.87 M/mm3 (3.60-5.2); RDW 14.5 % (11.6-15.6)
[2019-02-11 08:02] LABS: BLOOD UREA NITROGEN 20.1 mg/dL (7-18); CALCIUM 8.8 mg/dL (8.5-10.1); CREATININE 1.1 mg/dL (0.55-1.3); MAGNESIUM 1.8 mg/dL (1.8-2.4); POTASSIUM 3.5 mmol/L (3.5-5.1)
[2019-02-11] MEDS ORDERED: PT OWN MED DRAWER 7, Y5N ONE (09:05)
[2019-02-11] MEDS: metoPROLOL SUCCINATE 25 MG TAB.SR.24H (FP) PO SCH ×2 (09:10→21:26)
[2019-02-11] MEDS: MEMANTINE HCL 10 MG TABLET (FP) PO SCH ×2 (09:12→21:27)
[2019-02-11] MEDS: DONEPEZIL HCL 10 MG TABLET (FP) PO SCH (09:12)
[2019-02-11] MEDS: APIXABAN 2.5 MG TABLET PO SCH ×2 (09:12→21:27)
[2019-02-11] MEDS: FERROUS SO4 325 MG TABLET (FP) PO SCH ×2 (09:13→21:27)
[2019-02-11] MEDS: PANTOPRAZOLE 40 MG TABLET (FP) PO SCH (09:13)
[2019-02-11] MEDS: CYANOCOBALAMIN 1,000 MCG TABLET (FP) PO SCH (09:14)
[2019-02-11] MEDS: DULoxetine HCL 30 MG CAPSULE.DR PO SCH (09:14)
--- NOTE | 2019-02-11 09:49 | PN ---
Physical Exam: SUBJECTIVE: Patient seen and examined. She says she still feels SOB at rest. OBJECTIVE: Vital Signs Period Temp Pulse Resp BP Sys/Rice Pulse Ox Last 24 Hr 98.1 F-98.4 F 73-131 18-20 104-142/53-79 98 GENERAL: The patient is awake, alert, and fully oriented, in mild respiratory distress. LUNGS: Breath sounds decreased at both bases, clear to auscultation bilaterally , no wheezes, no crackles, no accessory muscle use. HEART: Regular rate and rhythm, S1, S2 without murmur, rub or gallop. ABDOMEN: Soft, nontender, nondistended, normoactive bowel sounds, no guarding, no rebound, no hepatosplenomegaly, no masses. EXTREMITIES: 2+ pulses, warm, well-perfused, no edema. Laboratory Results - last 24 hr 02/11/19 02/11/19 06:30 06:30 WBC 12.0 H RBC 3.87 Hgb 11.8 Hct 36.3 MCV 93.8 MCH 30.6 MCHC 32.6 RDW 14.5 Plt Count 234 MPV 10.6 Sodium 135 L Potassium 3.5 Chloride 92 L Carbon Dioxide 33 H Anion Gap 10 BUN 20.1 H Creatinine 1.1 Est GFR (CKD-EPI)AfAm 53.77 Est GFR (CKD-EPI)NonAf 46.39 Random Glucose 180 H Calcium 8.8 Magnesium 1.8 Active Medications Generic Name Dose Route Start Last Admin Trade Name Freq PRN Reason Stop Dose Admin Apixaban 2.5 mg 02/05/19 22:00 02/11/19 09:12 Eliquis - PO 2.5 mg BID PETTY Administration Atorvastatin Calcium 10 mg 02/05/19 22:00 02/10/19 21:02 Lipitor - PO 10 mg HS PETTY Administration Cyanocobalamin 2,000 mcg 02/08/19 10:04 02/11/19 09:14 Vitamin B12 - PO 2,000 mcg DAILY PETTY Administration Donepezil HCl 10 mg 02/06/19 10:00 02/11/19 09:12 Aricept - PO 10 mg DAILY PETTY Administration Duloxetine HCl 30 mg 02/09/19 10:00 02/11/19 09:14 Cymbalta - PO 30 mg DAILY PETTY Administration Ferrous Sulfate 325 mg 02/05/19 22:00 02/11/19 09:13 Feosol - PO 325 mg BID EPTTY Administration Furosemide 40 mg 02/10/19 10:00 02/11/19 06:36 Lasix Injection - IVPUSH 40 mg BIDLASIX PETTY Administration Ipratropium [place] 1 amp 02/07/19 08:31 02/10/19 04:28 Atrovent 0.02% Nebulizer - NEB 02/14/19 08:31 1 amp Q6H PRN Administration DYSPEPSIA Memantine 10 mg 02/05/19 22:00 02/11/19 09:12 Namenda - PO 10 mg BID PETTY Administration Metoprolol Succinate 12.5 mg 02/09/19 10:33 02/11/19 09:10 Toprol Xl - PO 12.5 mg BID PETTY Administration Pantoprazole Sodium 40 mg 02/06/19 10:00 02/11/19 09:13 Protonix - PO 40 mg DAILY PETTY Administration ASSESSMENT/PLAN: This is an 83 year old woman with a history of PAF, AV node ablation, pacemaker , HTN, hyperlipidemia, mitral regurgitation, anxiety, dementia who presented to the ED with SOB. 1. Acute on chronic diastolic heart failure - Continue Lasix 40 IV - Weight down 1.6 kg since 02/08 - CXR 02/10 showed left basilar atelectasis vs pneumonia with left effusion - Chest CTA showed no PE, small to moderate bilateral pleural effusions increased from 01/29, bibasilar atelectasis, no infiltrate, cardiomegaly, moderate hiatal hernia 2. Non-sustained ventricular tachycardia - Continue Toprol XL - Keep Mg>2, K>4 3. Severe mitral regurgitation 4. Severe pulmonary HTN 5. Paroxysmal atrial fibrillation - History of AV node ablation, pacemaker placement - Continue Toprol XL, Eliquis - Cardizem discontinued secondary to hypotension 6. HTN - Continue Toprol XL - Cardizem discontinue secondary to hypotension 7. Hyperlipidemia - Continue Lipitor 8. Anxiety - Continue Cymbalta 9. Dementia - Continue Aricept, Namenda 10. DVT prophylaxis - On Eliquis Visit type - Emergency Visit Emergency Visit: Yes ED Registration Date: 02/05/19 Care time: The patient presented to the Emergency Department on the above date and was hospitalized for further evaluation of their emergent condition. - New Patient This patient is new to me today: No - Critical Care Critical Care patient: No - Discharge Referral [facility]erred to [facility] No
--- NOTE | 2019-02-11 10:51 | PN ---
Progress Note (short form) - Note Progress Note: PULMONARY RETURNED FROM [facility] FEELS LIGHTHEADED CTA NEGATIVE FOR PE VSS/AFEBRILE PALE/ANICTERIC DISTANT BS B/L S1S2 REGULAR BS+ NO EDEMA LABS/MEDS/NOTES/IMAGES REVIEWED SEVERE PULMONARY HTN LIKELY DUE TO VALVULAR HD(SEVERE MR) CPS/BILATRERAL PL EFFUSIONS ON PREVIOUS CT NO CONTRAST ASHD AFIB S/P AV TEJA ABLATION ,S/P PPM HTN DEMENTIA PREVIOUS + TROPONINS PLAN CONTINUE AC SUPPLEMENTAL O2 RATE CONTROL PER CARDIOLOGY PONCE MR REPAIR WOULD BE OF BENEFIT IF SHE IS A CANDIDATE PLAN PER CARDIO Unruly ALVAREZ MD Problem List - Problems (1) Pulmonary HTN Code(s): I27.20 - PULMONARY HYPERTENSION, UNSPECIFIED (2) Weakness Code(s): R53.1 - WEAKNESS (3) Atrial fibrillation Code(s): I48.91 - UNSPECIFIED ATRIAL FIBRILLATION Qualifiers: Atrial fibrillation type: paroxysmal Qualified Code(s): I48.0 - Paroxysmal atrial fibrillation (4) HTN (hypertension) Code(s): I10 - ESSENTIAL (PRIMARY) HYPERTENSION (5) Mitral valve regurgitation Code(s): I34.0 - NONRHEUMATIC MITRAL (VALVE) INSUFFICIENCY (6) Pacemaker ECG pattern Code(s): Z95.0 - PRESENCE OF CARDIAC PACEMAKER
[2019-02-11] MEDS ORDERED: MAGNESIUM OXIDE 400 MG TABLET (FP) PO ONE (12:30)
[2019-02-11] MEDS ORDERED: POTASSIUM CHLORIDE TABS 20 MEQ TABLET.ER (FP) PO ONE (12:30)
[2019-02-11] MEDS: ATORVASTATIN CA 10 MG TABLET (FP) PO SCH (21:27)
[2019-02-12] MEDS: FUROSEMIDE 40 MG/4 ML INJECTABLE VIAL IVPUSH SCH (06:35)
[2019-02-12 06:40] LABS: BASO % 0.5 % (0-2.0); EOS % 0.7 % (0-4.5); HEMATOCRIT 33.9 % (32.4-45.2); HEMOGLOBIN 11.3 GM/dL (10.7-15.3); LYMPH % 10.6 % (8-40); MCH 31.3 pg (25.7-33.7); MCHC 33.3 g/dl (32.0-36.0); MEAN CELL VOLUME 94.2 fl (80-96); MEAN PLT VOLUME 10.4 fl (7.5-11.1); MONO % 9.8 % (3.8-10.2); NEUT % 78.4 % (42.8-82.8); PLATELET COUNT 201 K/MM3 (134-434); RDW 14.5 % (11.6-15.6); WHITE BLOOD COUNT 10.5 K/mm3 (4.0-10.0)
[2019-02-12 06:50] LABS: BLOOD UREA NITROGEN 22.8 mg/dL (7-18); CALCIUM 8.6 mg/dL (8.5-10.1); CREATININE 0.9 mg/dL (0.55-1.3); MAGNESIUM 1.9 mg/dL (1.8-2.4); POTASSIUM 4.2 mmol/L (3.5-5.1)
[2019-02-12] MEDS ORDERED: METOPROLOL TARTRATE 5 MG/5 ML VIAL IVPUSH ONE (08:01)
--- NOTE | 2019-02-12 08:35 | PN ---
Progress Note, Physician Chief Complaint: This AM at around 7am, around time she got out of bed to bathroom, rapid AF to 130s She denied CP, SOB beyond baseline, denied palps. "I am ready for some fun today." BP stable, ordered Lopressor 5mg IV x 1 which brought rate down to 110-120bpm We had tried stopping her Cardizem several days ago to allow more room for diuresis. WEIGHT DOWN to 134lbs History of Present Illness: Heart rate has now settled around 120bpm - Current Medication List Current Medications: Active Medications Apixaban (Eliquis -) 2.5 mg PO BID [facility] Last Admin: 02/11/19 21:27 Dose: 2.5 mg Atorvastatin Calcium (Lipitor -) 10 mg PO HS [facility] Last Admin: 02/11/19 21:27 Dose: 10 mg Cyanocobalamin (Vitamin B12 -) 2,000 mcg PO DAILY [facility] Last Admin: 02/11/19 09:14 Dose: 2,000 mcg Diltiazem HCl (Cardizem Cd -) 120 mg PO DAILY [facility] Donepezil HCl (Aricept -) 10 mg PO DAILY [facility] Last Admin: 02/11/19 09:12 Dose: 10 mg Duloxetine HCl (Cymbalta -) 30 mg PO DAILY [facility] Last Admin: 02/11/19 09:14 Dose: 30 mg Ferrous Sulfate (Feosol -) 325 mg PO BID [facility] Last Admin: 02/11/19 21:27 Dose: 325 mg Furosemide (Lasix Injection -) 40 mg IVPUSH BIDLASIX [facility] Last Admin: 02/12/19 06:35 Dose: 40 mg Ipratropium [place] (Atrovent 0.02% Nebulizer -) 1 amp NEB Q6H PRN PRN Reason: DYSPEPSIA Stop: 02/14/19 08:31 Last Admin: 02/10/19 04:28 Dose: 1 amp Memantine (Namenda -) 10 mg PO BID [facility] Last Admin: 02/11/19 21:27 Dose: 10 mg Metoprolol Succinate (Toprol Xl -) 12.5 mg PO BID [facility] Last Admin: 02/11/19 21:26 Dose: 12.5 mg Pantoprazole Sodium (Protonix -) 40 mg PO DAILY [facility] Last Admin: 02/11/19 09:13 Dose: 40 mg - Objective Vital Signs: Vital Signs Temperature 98 F 10/06/19 06:00 Pulse Rate 135 H 02/12/19 08:11 Respiratory Rate 18 02/12/19 06:00 Blood Pressure 119/70 02/12/19 08:11 O2 Sat by Pulse Oximetry (%) 100 02/11/19 21:00 Constitutional: Yes: No Distress Cardiovascular: Yes: Tachycardia, Pulse Irregular, JVD Respiratory: Yes: Other (slight decreased breath sounds bases, no wheezing. No rales) Gastrointestinal: Yes: Soft Edema: No Peripheral Pulses WNL: Yes Neurological: Yes: Alert, Oriented Labs: CBC, BMP 02/12/19 05:24 02/12/19 05:24 Laboratory Tests 02/12/19 02/12/19 05:24 05:24 WBC 10.5 H Hgb 11.3 Plt Count 201 Sodium 139 Potassium 4.2 BUN 22.8 H Creatinine 0.9 Magnesium 1.9 - ....Imaging EKG: Image Reviewed Assessment/Plan a/p: 83 year old woman pmh PAF, prior AV node ablation and PPM 06/2016, HTN, HLD, MR followed by outpatient [place]: [place] (Dr. Yariel Morfin), here with sob, orthopnea. Acute diastolic chf, severe MR: -Weight down and mild clinical improvement but now we have MIGUEL. -Creat stable with IV Lasix -Continue current dose; will touch base with Dr. Cam tomorrow and discuss Mitral Clip eval -Wanted to try introducing low dose NILA today, but will need to resume Cardizem CD to help control her MIGUEL/ may need to increase Metoprolol as well. -if cannot adequately diurese and/or hypotension supervenes, there will need to be a discussion with pt and family regarding goals of care (hospice vs reconsider invasive MV treatment). PAF, prior AV node ablation and PPM 06/2016: -Back in MIGUEL as above required IV Metoprolol -Resume Cardizem CD and may need to increase Metop as well; cont tele. -cont eliquis adjusted for age, weight and renal fx VTach: -NSVT on tele -K/Mag per usual aggressive targets (08/09) -low dose BB as soft bp's allow htn: -cont home meds hld: -cont statin Progressive Cognitive decline: -Followed by Neuro as outpt -This plays into decision re mitral valve intervention: to be addressed again early this week w/ family and her outpt cardio
[2019-02-12] MEDS ORDERED: METOPROLOL TARTRATE 5 MG/5 ML VIAL IVPUSH PRN (09:33)
--- NOTE | 2019-02-12 10:49 | PN ---
Progress Note (short form) - Note Progress Note: PULMONARY RAPID AF THIS AM/CARDIO ATTENDED CTA NEGATIVE FOR PE B/L EFFUSIONS/CARDIOMEGALY VSS/AFEBRILE PALE/ANICTERIC DISTANT BS B/L S1S2 REGULAR BS+ NO EDEMA LABS/MEDS/NOTES/IMAGES REVIEWED SEVERE PULMONARY HTN LIKELY DUE TO VALVULAR HD(SEVERE MR) CPS/BILATRERAL PL EFFUSIONS ON PREVIOUS CT NO CONTRAST ASHD AFIB S/P AV TEJA ABLATION ,S/P PPM HTN DEMENTIA PREVIOUS + TROPONINS PLAN CONTINUE AC SUPPLEMENTAL O2 RATE CONTROL PER CARDIOLOGY LASIX MR REPAIR WOULD BE OF BENEFIT IF SHE IS A CANDIDATE PLAN PER CARDIO Unruly ALVAREZ MD Problem List - Problems (1) Pulmonary HTN Code(s): I27.20 - PULMONARY HYPERTENSION, UNSPECIFIED (2) Weakness Code(s): R53.1 - WEAKNESS (3) Atrial fibrillation Code(s): I48.91 - UNSPECIFIED ATRIAL FIBRILLATION Qualifiers: Atrial fibrillation type: paroxysmal Qualified Code(s): I48.0 - Paroxysmal atrial fibrillation (4) HTN (hypertension) Code(s): I10 - ESSENTIAL (PRIMARY) HYPERTENSION (5) Mitral valve regurgitation Code(s): I34.0 - NONRHEUMATIC MITRAL (VALVE) INSUFFICIENCY (6) Pacemaker ECG pattern Code(s): Z95.0 - PRESENCE OF CARDIAC PACEMAKER
[2019-02-12] MEDS: metoPROLOL SUCCINATE 25 MG TAB.SR.24H (FP) PO SCH ×2 (10:52→21:31)
[2019-02-12] MEDS: CYANOCOBALAMIN 1,000 MCG TABLET (FP) PO SCH (10:53)
[2019-02-12] MEDS: PANTOPRAZOLE 40 MG TABLET (FP) PO SCH (10:54)
[2019-02-12] MEDS: APIXABAN 2.5 MG TABLET PO SCH ×2 (10:54→21:31)
[2019-02-12] MEDS: FERROUS SO4 325 MG TABLET (FP) PO SCH ×2 (10:54→21:31)
[2019-02-12] MEDS: DONEPEZIL HCL 10 MG TABLET (FP) PO SCH (10:54)
[2019-02-12] MEDS: DULoxetine HCL 30 MG CAPSULE.DR PO SCH (10:54)
[2019-02-12] MEDS: MEMANTINE HCL 10 MG TABLET (FP) PO SCH ×2 (10:54→21:31)
[2019-02-12] MEDS ORDERED: FUROSEMIDE 40 MG/4 ML INJECTABLE VIAL IVPUSH ONE (11:11)
--- NOTE | 2019-02-12 13:32 | PN ---
Physical Exam: SUBJECTIVE: Patient seen and examined. Patient had an episode of rapid a fib this morning when getting out of bed to use the bathroom. She was treated with Lopressor 5 mg IV x 2. She says she isn't having a good day and feels SOB. OBJECTIVE: Vital Signs Period Temp Pulse Resp BP Sys/Rice Pulse Ox Last 24 Hr 97.5 F-98.1 F 83-135 18-18 112-126/66-84 100-100 GENERAL: The patient is awake, alert, and fully oriented, in mild respiratory distress. LUNGS: Breath sounds decreased at both bases, clear to auscultation bilaterally , no wheezes, no crackles, no accessory muscle use. HEART: Regular rate and rhythm, S1, S2 without murmur, rub or gallop. ABDOMEN: Soft, nontender, nondistended, normoactive bowel sounds, no guarding, no rebound, no hepatosplenomegaly, no masses. EXTREMITIES: 2+ pulses, warm, well-perfused, no edema. Laboratory Results - last 24 hr 02/12/19 02/12/19 05:24 05:24 WBC 10.5 H RBC 3.60 Hgb 11.3 Hct 33.9 MCV 94.2 MCH 31.3 MCHC 33.3 RDW 14.5 Plt Count 201 MPV 10.4 Absolute Neuts (auto) 8.2 H Neutrophils % 78.4 Lymphocytes % 10.6 Monocytes % 9.8 Eosinophils % 0.7 Basophils % 0.5 Nucleated RBC % 0 Sodium 139 Potassium 4.2 Chloride 95 L Carbon Dioxide 36 H Anion Gap 8 BUN 22.8 H Creatinine 0.9 Est GFR (CKD-EPI)AfAm 68.53 Est GFR (CKD-EPI)NonAf 59.13 Random Glucose 111 H Calcium 8.6 Magnesium 1.9 Active Medications Generic Name Dose Route Start Last Admin Trade Name Freq PRN Reason Stop Dose Admin Apixaban 2.5 mg 02/05/19 22:00 02/12/19 10:54 Eliquis - PO 2.5 mg BID [facility] Administration Atorvastatin Calcium 10 mg 02/05/19 22:00 02/11/19 21:27 Lipitor - PO 10 mg HS [facility] Administration Cyanocobalamin 2,000 mcg 02/08/19 10:04 02/12/19 10:53 Vitamin B12 - PO 2,000 mcg DAILY [facility] Administration Diltiazem HCl 120 mg 02/12/19 10:00 02/12/19 09:57 Cardizem Cd - PO Not Given DAILY [facility] Donepezil HCl 10 mg 02/06/19 10:00 02/12/19 10:54 Aricept - PO 10 mg DAILY [facility] Administration Duloxetine HCl 30 mg 02/09/19 10:00 02/12/19 10:54 Cymbalta - PO 30 mg DAILY [facility] Administration Ferrous Sulfate 325 mg 02/05/19 22:00 02/12/19 10:54 Feosol - PO 325 mg BID [facility] Administration Furosemide 60 mg 02/12/19 16:00 Lasix Injection - IVPB BID@0600,1400 [facility] Ipratropium [place] 1 amp 02/07/19 08:31 02/10/19 04:28 Atrovent 0.02% Nebulizer - NEB 02/14/19 08:31 1 amp Q6H PRN Administration DYSPEPSIA Memantine 10 mg 02/05/19 22:00 02/12/19 10:54 Namenda - PO 10 mg BID [facility] Administration Metoprolol Succinate 25 mg 02/12/19 10:00 02/12/19 10:52 Toprol Xl - PO 25 mg BID [facility] Administration Metoprolol Tartrate 5 mg 02/12/19 09:33 02/12/19 09:47 Lopressor Injection - IVPUSH 5 mg Q4H PRN Administration HYPERTENSION Pantoprazole Sodium 40 mg 02/06/19 10:00 02/12/19 10:54 Protonix - PO 40 mg DAILY [facility] Administration ASSESSMENT/PLAN: This is an 83 year old woman with a history of PAF, AV node ablation, pacemaker , HTN, hyperlipidemia, mitral regurgitation, anxiety, dementia who presented to the ED with SOB. 1. Acute on chronic diastolic heart failure - Continue Lasix 40 IV - Weight down 2.8 kg since 02/08 - CXR 02/10 showed left basilar atelectasis vs pneumonia with left effusion - Chest CTA showed no PE, small to moderate bilateral pleural effusions increased from 01/29, bibasilar atelectasis, no infiltrate, cardiomegaly, moderate hiatal hernia 2. Non-sustained ventricular tachycardia - Continue Toprol XL - Keep Mg>2.0, K>4.0 3. Severe mitral regurgitation 4. Severe pulmonary HTN 5. Paroxysmal atrial fibrillation - History of AV node ablation, pacemaker placement - Had rapid AF this morning - Cardizem restarted and Toprol XL increased - Continue Eliquis 6. HTN - Continue Cardizem CD, Toprol XL - Cardizem discontinue secondary to hypotension 7. Hyperlipidemia - Continue Lipitor 8. Anxiety - Continue Cymbalta 9. Dementia - Continue Aricept, Namenda 10. DVT prophylaxis - On Eliquis Visit type - Emergency Visit Emergency Visit: Yes ED Registration Date: 02/05/19 Care time: The patient presented to the Emergency Department on the above date and was hospitalized for further evaluation of their emergent condition. - New Patient This patient is new to me today: No - Critical Care Critical Care patient: No - Discharge Referral Referred to [facility] Med P.C.: No
[2019-02-12 16:15] LABS: BLOOD UREA NITROGEN 24.2 mg/dL (7-18); CALCIUM 8.6 mg/dL (8.5-10.1); CREATININE 1.1 mg/dL (0.55-1.3); MAGNESIUM 1.9 mg/dL (1.8-2.4); POTASSIUM 4.5 mmol/L (3.5-5.1)
[2019-02-12] MEDS ORDERED: MAGNESIUM OXIDE 400 MG TABLET (FP) PO ONE (16:31)
[2019-02-12] MEDS: FUROSEMIDE 100 MG/10 ML INJECTABLE VIAL IVPB SCH (17:00)
[2019-02-12] MEDS: ATORVASTATIN CA 10 MG TABLET (FP) PO SCH (21:31)
[2019-02-13] MEDS: FUROSEMIDE 100 MG/10 ML INJECTABLE VIAL IVPB SCH ×3 (05:44→13:24)
[2019-02-13 07:25] LABS: CALCIUM 8.8 mg/dL (8.5-10.1); CREATININE 1.3 mg/dL (0.55-1.3); MAGNESIUM 2.2 mg/dL (1.8-2.4); POTASSIUM 4.1 mmol/L (3.5-5.1)
--- NOTE | 2019-02-13 09:06 | PN ---
Progress Note, Physician Chief Complaint: sob History of Present Illness: remains sob. very weak no cp, palpit no cigs - Current Medication List Current Medications: Active Medications Apixaban (Eliquis -) 2.5 mg PO BID [facility] Last Admin: 02/12/19 21:31 Dose: 2.5 mg Atorvastatin Calcium (Lipitor -) 10 mg PO HS [facility] Last Admin: 02/12/19 21:31 Dose: 10 mg Cyanocobalamin (Vitamin B12 -) 2,000 mcg PO DAILY [facility] Last Admin: 02/12/19 10:53 Dose: 2,000 mcg Diltiazem HCl (Cardizem Cd -) 120 mg PO DAILY [facility] Last Admin: 02/12/19 09:57 Dose: Not Given Donepezil HCl (Aricept -) 10 mg PO DAILY [facility] Last Admin: 02/12/19 10:54 Dose: 10 mg Duloxetine HCl (Cymbalta -) 30 mg PO DAILY [facility] Last Admin: 02/12/19 10:54 Dose: 30 mg Ferrous Sulfate (Feosol -) 325 mg PO BID [facility] Last Admin: 02/12/19 21:31 Dose: 325 mg Furosemide (Lasix Injection -) 60 mg IVPB BID@0600,1400 [facility] Last Admin: 02/13/19 05:44 Dose: 60 mg Ipratropium [place] (Atrovent 0.02% Nebulizer -) 1 amp NEB Q6H PRN PRN Reason: DYSPEPSIA Stop: 02/14/19 08:31 Last Admin: 02/10/19 04:28 Dose: 1 amp Memantine (Namenda -) 10 mg PO BID [facility] Last Admin: 02/12/19 21:31 Dose: 10 mg Metoprolol Succinate (Toprol Xl -) 25 mg PO BID [facility] Last Admin: 02/12/19 21:31 Dose: 25 mg Metoprolol Tartrate (Lopressor Injection -) 5 mg IVPUSH Q4H PRN PRN Reason: HYPERTENSION Last Admin: 02/12/19 09:47 Dose: 5 mg Pantoprazole Sodium (Protonix -) 40 mg PO DAILY [facility] Last Admin: 02/12/19 10:54 Dose: 40 mg - Objective Vital Signs: Vital Signs Temperature 98.3 F 02/13/19 08:20 Pulse Rate 90 02/13/19 08:20 Respiratory Rate 18 02/13/19 08:20 Blood Pressure 120/73 02/13/19 08:20 O2 Sat by Pulse Oximetry (%) 96 02/12/19 21:00 Constitutional: Yes: No Distress, Calm Eyes: No: Sclera Icterus HENT: No: Nasal Congestion Cardiovascular: Yes: Regular Rate and Rhythm, JVD, Murmur (loud MR murmur), S1, S2, Other (PMI non diplaced). No: Gallop Respiratory: Yes: CTA Bilaterally. No: Accessory Muscle Use, Rales, Wheezes Gastrointestinal: Yes: Normal Bowel Sounds, Soft. No: Tenderness Musculoskeletal: Yes: Other (No kyphosis) Extremities: No: Cold, Cyanosis Edema: No Integumentary: No: Jaundice Neurological: Yes: Alert, Oriented (x3) Psychiatric: No: Agitated Labs: CBC, BMP 02/12/19 05:24 02/13/19 06:00 Assessment/Plan tele: AF in 110s bpm-->NSR 70s-80s 83 year old woman pmh PAF, prior AV node ablation and PPM 06/2016, HTN, HLD, MR followed by outpatient Manager Care: [facility] (Dr. Yariel Morfin), here with sob, orthopnea. Acute diastolic chf, severe MR: -Weight down and mild clinical improvement initially with lasix 40 iv bid. -CT here 02/10 with [id number] effusions increased in size vs 01/26 -incr pulm congestion s/p CTA contrast load--lasix increased to 60 iv bid on 02/12 -02/13: wt unchanged today vs yest (134 lbs), remains with JVD, tachypnea/ dyspnea. sodium down, bun/creat starting to climb--will incr lasix to 80 iv bid. -doubt bp will tolerate increase in diuresis with Cardizem CD on board ( hypotensive to 70s-80s previously this admit--cardizem held at that time) -dr arteaga d/w'd dr bland again today: plan is to try incr diuresis with use of amio for HR control without hypotensive effect; if she is not diuresing or signs of renal hypoperfusion evident on labs (i.e. sodium declining , bun/creat rising), will give trial of milrinone to augment forward flow -if she fails that approach, dr bland will d/w family transfer to [facility] for HF eval and alvarado-clip eval at fairly hi risk, vs hospice PAF, prior AV node ablation and PPM 06/2016: -developed rapid AF 02/12, required IV Metoprolol -Resume Cardizem CD, continued reduced-dose metopr. very hypotensive previously requiring cardizem discontinuation-- -cont eliquis adjusted for age, weight and renal fx VTach: -NSVT on tele -K/Mag per usual aggressive targets (08/09) -low dose BB as soft bp's allow htn: -cont home meds hld: -cont statin Progressive Cognitive decline: -Followed by Neuro as outpt -This plays into decision re mitral valve intervention: to be addressed again early this week w/ family and her outpt cardio
[2019-02-13] MEDS: MEMANTINE HCL 10 MG TABLET (FP) PO SCH ×2 (09:07→21:35)
[2019-02-13] MEDS: DONEPEZIL HCL 10 MG TABLET (FP) PO SCH (09:07)
[2019-02-13] MEDS: PANTOPRAZOLE 40 MG TABLET (FP) PO SCH (09:07)
[2019-02-13] MEDS: CYANOCOBALAMIN 1,000 MCG TABLET (FP) PO SCH (09:07)
[2019-02-13] MEDS: FERROUS SO4 325 MG TABLET (FP) PO SCH ×2 (09:07→21:35)
[2019-02-13] MEDS: APIXABAN 2.5 MG TABLET PO SCH ×2 (09:07→21:35)
[2019-02-13] MEDS: DULoxetine HCL 30 MG CAPSULE.DR PO SCH (09:08)
[2019-02-13] MEDS: metoPROLOL SUCCINATE 25 MG TAB.SR.24H (FP) PO SCH ×2 (09:08→21:35)
--- NOTE | 2019-02-13 12:45 | PN ---
Teaching Attending Note Name of Resident: Jose Abrams ATTENDING PHYSICIAN STATEMENT I saw and evaluated the patient. I reviewed the resident's note and discussed the case with the resident. I agree with the resident's findings and plan as documented. SUBJECTIVE: Patient continues to feel SOB. OBJECTIVE: Vital Signs Period Temp Pulse Resp BP Sys/Rice Pulse Ox Last 24 Hr 97.7 F-98.3 F 83-115 18-20 101-149/60-98 96-96 GENERAL: The patient is awake, alert, and fully oriented, in mild respiratory distress. LUNGS: Breath sounds decreased at both bases, clear to auscultation bilaterally , no wheezes, no crackles, no accessory muscle use. HEART: Regular rate and rhythm, S1, S2, (+) 3/6 systolic murmur. ABDOMEN: Soft, nontender, nondistended, normoactive bowel sounds, no guarding, no rebound, no hepatosplenomegaly, no masses. EXTREMITIES: 2+ pulses, warm, well-perfused, no edema. Laboratory Results - last 24 hr 02/12/19 02/13/19 15:12 06:00 Sodium 138 135 L Potassium 4.5 4.1 Chloride 94 L 92 L Carbon Dioxide 32 36 H Anion Gap 11 8 BUN 24.2 H 31.0 H Creatinine 1.1 1.3 Est GFR (CKD-EPI)AfAm 53.77 43.93 Est GFR (CKD-EPI)NonAf 46.39 37.91 Random Glucose 148 H 130 H Calcium 8.6 8.8 Magnesium 1.9 2.2 Current Medications Generic Name Dose Route Start Last Admin Trade Name Freq PRN Reason Stop Dose Admin Amiodarone HCl 200 mg 02/13/19 11:00 Cordarone - PO BID [facility] Apixaban 2.5 mg 02/05/19 22:00 02/13/19 09:07 Eliquis - PO 2.5 mg BID [facility] Administration Atorvastatin Calcium 10 mg 02/05/19 22:00 02/12/19 21:31 Lipitor - PO 10 mg HS [facility] Administration Cyanocobalamin 2,000 mcg 02/08/19 10:04 02/13/19 09:07 Vitamin B12 - PO 2,000 mcg DAILY [facility] Administration Donepezil HCl 10 mg 02/06/19 10:00 02/13/19 09:07 Aricept - PO 10 mg DAILY [facility] Administration Duloxetine HCl 30 mg 02/09/19 10:00 02/13/19 09:08 Cymbalta - PO 30 mg DAILY [facility] Administration Ferrous Sulfate 325 mg 02/05/19 22:00 02/13/19 09:07 Feosol - PO 325 mg BID [facility] Administration Furosemide 80 mg 02/13/19 11:00 02/13/19 11:41 Lasix Injection - IVPB Not Given BID@0600,1400 [facility] Ipratropium [place] 1 amp 02/07/19 08:31 02/10/19 04:28 Atrovent 0.02% Nebulizer - NEB 02/14/19 08:31 1 amp Q6H PRN Administration DYSPEPSIA Memantine 10 mg 02/05/19 22:00 02/13/19 09:07 Namenda - PO 10 mg BID [facility] Administration Metoprolol Succinate 25 mg 02/12/19 10:00 02/13/19 09:08 Toprol Xl - PO 25 mg BID [facility] Administration Metoprolol Tartrate 5 mg 02/12/19 09:33 02/12/19 09:47 Lopressor Injection - IVPUSH 5 mg Q4H PRN Administration HYPERTENSION Pantoprazole Sodium 40 mg 02/06/19 10:00 02/13/19 09:07 Protonix - PO 40 mg DAILY [facility] Administration ASSESSMENT AND PLAN: This is an 83 year old woman with a history of PAF, AV node ablation, pacemaker , HTN, hyperlipidemia, mitral regurgitation, anxiety, dementia who presented to the ED with SOB. 1. Acute on chronic diastolic heart failure - Weight unchanged from yesterday - Lasix increased to 80 mg IV bid - Weight down 2.8 kg since 02/08 - CXR 02/10 showed left basilar atelectasis vs pneumonia with left effusion - Chest CTA showed no PE, small to moderate bilateral pleural effusions increased from 01/29, bibasilar atelectasis, no infiltrate, cardiomegaly, moderate hiatal hernia 2. Non-sustained ventricular tachycardia - Continue Toprol XL - Keep Mg>2.0, K>4.0 3. Severe mitral regurgitation 4. Severe pulmonary HTN 5. Paroxysmal atrial fibrillation - History of AV node ablation, pacemaker placement - Had rapid AF yesterday - Cardizem discontinued and Amiodarone started - Continue Toprol XL, Eliquis 6. HTN - Continue Toprol XL 7. Hyperlipidemia - Continue Lipitor 8. Anxiety - Continue Cymbalta 9. Dementia - Continue Aricept, Namenda 10. DVT prophylaxis - On Eliquis
[2019-02-13] MEDS: AMIODARONE HCL 200 MG TABLET (FP) PO SCH ×2 (13:24→21:35)
--- NOTE | 2019-02-13 14:10 | PN ---
Progress Note (short form) - Note Progress Note: HPI: Sleeping comfortably at bedside this AM. Pt noted to have Afib with RVR yesterday and had Toprol XL uptitrated with good effect. No telemetry events from last night noted. Pt still remains slightly anxious and short of breath currently. Vital Signs Temperature 98.3 F 02/13/19 08:20 Pulse Rate 90 02/13/19 08:20 Respiratory Rate 18 02/13/19 08:20 Blood Pressure 120/73 02/13/19 08:20 O2 Sat by Pulse Oximetry (%) 96 02/13/19 09:40 Gen: NAD, awake, alert, sitting up in bed HEENT: NC/AT,DIMAS, sclera anicteric, MMM Neck: No JVD LUNGS: Rales b/l at the bases still remain. 3LNC, no accessory muscle use CARD: RRR S1 and S2 normal. 3/6 systolic murmur at apex and tricuspid area of auscultation ABD: Soft, NT/ND normoactive BS, no hepatojugular reflux appreciated, no guarding EXT: No edema noted CBC, BMP 02/12/19 05:24 02/13/19 06:00 Active Medications Amiodarone HCl (Cordarone -) 200 mg PO BID [facility] Last Admin: 02/13/19 13:24 Dose: 200 mg Apixaban (Eliquis -) 2.5 mg PO BID [facility] Last Admin: 02/13/19 09:07 Dose: 2.5 mg Atorvastatin Calcium (Lipitor -) 10 mg PO HS [facility] Last Admin: 02/12/19 21:31 Dose: 10 mg Cyanocobalamin (Vitamin B12 -) 2,000 mcg PO DAILY [facility] Last Admin: 02/13/19 09:07 Dose: 2,000 mcg Donepezil HCl (Aricept -) 10 mg PO DAILY [facility] Last Admin: 02/13/19 09:07 Dose: 10 mg Duloxetine HCl (Cymbalta -) 30 mg PO DAILY [facility] Last Admin: 02/13/19 09:08 Dose: 30 mg Ferrous Sulfate (Feosol -) 325 mg PO BID [facility] Last Admin: 02/13/19 09:07 Dose: 325 mg Furosemide (Lasix Injection -) 80 mg IVPB BID@0600,1400 [facility] Last Admin: 02/13/19 13:24 Dose: 80 mg Ipratropium [place] (Atrovent 0.02% Nebulizer -) 1 amp NEB Q6H PRN PRN Reason: DYSPEPSIA Stop: 02/14/19 08:31 Last Admin: 02/10/19 04:28 Dose: 1 amp Memantine (Namenda -) 10 mg PO BID [facility] Last Admin: 02/13/19 09:07 Dose: 10 mg Metoprolol Succinate (Toprol Xl -) 25 mg PO BID [facility] Last Admin: 02/13/19 09:08 Dose: 25 mg Metoprolol Tartrate (Lopressor Injection -) 5 mg IVPUSH Q4H PRN PRN Reason: HYPERTENSION Last Admin: 02/12/19 09:47 Dose: 5 mg Pantoprazole Sodium (Protonix -) 40 mg PO DAILY [facility] Last Admin: 02/13/19 09:07 Dose: 40 mg A/P Volume overload 2/2 to HFpEF Pulmonary HTN PAF s/p PPM Mild memory deficits Prolonged QTc HTN HLD Anxiety --Heart failure 2/2 to severe MR, however it was discussed prior about deferring valve intervention due to clinical decline --Lasix increased to 80mg IVP BID --Changed to Amiodarone for HR control --Holding Cardizem 2/2 to hypotensive effects --Continue Toprol 25mg BID PO --Titrate O2 per SpO2 >90% --Monitor daily weights --Continue Eliquis 2.5mg BID --Continue Lipitor 10mg HS --Continue home Aricept and Namenda --Iron sulfate BID supplementation --Continue Duloxetine 30mg qdaily FEN: Fluids: Avoid; active diuresis Electrolyte abnormalities: Nutrition: Cardiac diet PPX: DVT - Eliquis on board GI - Already on Protonix qdaily Dispo: Diuresis continues; family discussions on transfer for mitral clipping vs. hospice care Case discussed with Dr. Linda Abrams, DO - IM PGY-3
--- NOTE | 2019-02-13 14:23 | PN ---
Progress Note (short form) - Note Progress Note: Still with SOB & NICOLE. No CP. Lightheaded with ambulation as well. Intake & Output 02/10/19 02/11/19 02/12/19 02/13/19 23:59 23:59 23:59 23:59 Intake Total 950 600 690 Output Total 200 200 Balance 750 600 690 -200 Weight 138 lb 12.8 oz 137 lb 6 oz 134 lb 12.8 oz 134 lb 12.8 oz Last Vital Signs Temp Pulse Resp BP Pulse Ox 98.3 F 90 18 120/73 96 02/13/19 08:20 02/13/19 08:20 02/13/19 08:20 02/13/19 08:20 02/13/19 09:40 Active Medications Amiodarone HCl (Cordarone -) 200 mg PO BID [facility] Last Admin: 02/13/19 13:24 Dose: 200 mg Apixaban (Eliquis -) 2.5 mg PO BID [facility] Last Admin: 02/13/19 09:07 Dose: 2.5 mg Atorvastatin Calcium (Lipitor -) 10 mg PO HS [facility] Last Admin: 02/12/19 21:31 Dose: 10 mg Cyanocobalamin (Vitamin B12 -) 2,000 mcg PO DAILY [facility] Last Admin: 02/13/19 09:07 Dose: 2,000 mcg Donepezil HCl (Aricept -) 10 mg PO DAILY [facility] Last Admin: 02/13/19 09:07 Dose: 10 mg Duloxetine HCl (Cymbalta -) 30 mg PO DAILY [facility] Last Admin: 02/13/19 09:08 Dose: 30 mg Ferrous Sulfate (Feosol -) 325 mg PO BID [facility] Last Admin: 02/13/19 09:07 Dose: 325 mg Furosemide (Lasix Injection -) 80 mg IVPB BID@0600,1400 [facility] Last Admin: 02/13/19 13:24 Dose: 80 mg Ipratropium Waucoma (Atrovent 0.02% Nebulizer -) 1 amp NEB Q6H PRN PRN Reason: DYSPEPSIA Stop: 02/14/19 08:31 Last Admin: 02/10/19 04:28 Dose: 1 amp Memantine (Namenda -) 10 mg PO BID [facility] Last Admin: 02/13/19 09:07 Dose: 10 mg Metoprolol Succinate (Toprol Xl -) 25 mg PO BID [facility] Last Admin: 02/13/19 09:08 Dose: 25 mg Metoprolol Tartrate (Lopressor Injection -) 5 mg IVPUSH Q4H PRN PRN Reason: HYPERTENSION Last Admin: 02/12/19 09:47 Dose: 5 mg Pantoprazole Sodium (Protonix -) 40 mg PO DAILY [facility] Last Admin: 02/13/19 09:07 Dose: 40 mg Gen: awake, alert, NAD at rest HEENT: NC/AT,DIMAS, sclera anicteric, MMM Neck: No JVD LUNGS: Bibasilar rales, no wheeze CARD: RRR S1 and S2 normal. 3/6 systolic murmur ABD: Soft, NT/ND normoactive BS, no guarding EXT: No edema noted Laboratory Results - last 24 hr 02/12/19 02/13/19 15:12 06:00 Sodium 138 135 L Potassium 4.5 4.1 Chloride 94 L 92 L Carbon Dioxide 32 36 H Anion Gap 11 8 BUN 24.2 H 31.0 H Creatinine 1.1 1.3 Est GFR (CKD-EPI)AfAm 53.77 43.93 Est GFR (CKD-EPI)NonAf 46.39 37.91 Random Glucose 148 H 130 H Calcium 8.6 8.8 Magnesium 1.9 2.2 Problem List - Problems (1) Pulmonary HTN Code(s): I27.20 - PULMONARY HYPERTENSION, UNSPECIFIED (2) Weakness Code(s): R53.1 - WEAKNESS (3) Atrial fibrillation Code(s): I48.91 - UNSPECIFIED ATRIAL FIBRILLATION Qualifiers: Atrial fibrillation type: paroxysmal Qualified Code(s): I48.0 - Paroxysmal atrial fibrillation (4) HTN (hypertension) Code(s): I10 - ESSENTIAL (PRIMARY) HYPERTENSION (5) Mitral valve regurgitation Code(s): I34.0 - NONRHEUMATIC MITRAL (VALVE) INSUFFICIENCY (6) Pacemaker ECG pattern Code(s): Z95.0 - PRESENCE OF CARDIAC PACEMAKER IMP: SEVERE PULMONARY HTN LIKELY DUE TO VALVULAR HD(SEVERE MR) CPS/BILATRERAL PL EFFUSIONS ON PREVIOUS CT NO CONTRAST ASHD AFIB S/P AV TEJA ABLATION ,S/P PPM HTN DEMENTIA PREVIOUS + TROPONINS PLAN CONTINUE AC SUPPLEMENTAL O2 RATE CONTROL PER CARDIOLOGY LASIX MR REPAIR WOULD BE OF BENEFIT IF SHE IS A CANDIDATE PLAN PER CARDIO Dr Sutbbs
[2019-02-13] MEDS: IPRATROPIUM BR 0.02% 0.5 MG/2.5 ML VIAL.NEB. NEB PRN (20:45)
[2019-02-13] MEDS: ATORVASTATIN CA 10 MG TABLET (FP) PO SCH (21:35)
[2019-02-14] MEDS: IPRATROPIUM BR 0.02% 0.5 MG/2.5 ML VIAL.NEB. NEB PRN (06:18)
[2019-02-14] MEDS: FUROSEMIDE 100 MG/10 ML INJECTABLE VIAL IVPB SCH ×2 (06:54→15:49)
[2019-02-14 07:04] LABS: BLOOD UREA NITROGEN 31.9 mg/dL (7-18); CALCIUM 8.6 mg/dL (8.5-10.1); CREATININE 1.2 mg/dL (0.55-1.3); POTASSIUM 3.4 mmol/L (3.5-5.1)
[2019-02-14] MEDS: DULoxetine HCL 30 MG CAPSULE.DR PO SCH (09:56)
[2019-02-14] MEDS: FERROUS SO4 325 MG TABLET (FP) PO SCH ×2 (09:56→21:49)
[2019-02-14] MEDS: metoPROLOL SUCCINATE 25 MG TAB.SR.24H (FP) PO SCH ×2 (09:56→21:49)
[2019-02-14] MEDS: MEMANTINE HCL 10 MG TABLET (FP) PO SCH ×2 (09:56→21:49)
[2019-02-14] MEDS: AMIODARONE HCL 200 MG TABLET (FP) PO SCH ×2 (09:56→21:49)
[2019-02-14] MEDS: DONEPEZIL HCL 10 MG TABLET (FP) PO SCH (09:57)
[2019-02-14] MEDS: APIXABAN 2.5 MG TABLET PO SCH ×2 (09:57→21:49)
[2019-02-14] MEDS: CYANOCOBALAMIN 1,000 MCG TABLET (FP) PO SCH (09:57)
[2019-02-14] MEDS: PANTOPRAZOLE 40 MG TABLET (FP) PO SCH (09:57)
[2019-02-14] MEDS ORDERED: POTASSIUM CHLORIDE TABS 20 MEQ TABLET.ER (FP) PO SCH (10:00)
--- NOTE | 2019-02-14 10:39 | PN ---
Progress Note (short form) - Note Progress Note: HPI: Awake sitting up in bed today. Reports shortness of breath. No anxiety at this time. Vital Signs Temperature 96.4 F L 02/14/19 08:58 Pulse Rate 76 02/14/19 08:58 Respiratory Rate 22 H 02/14/19 08:58 Blood Pressure 125/74 02/14/19 08:58 O2 Sat by Pulse Oximetry (%) 96 02/13/19 21:00 Gen: NAD, awake, alert, sitting up in bed HEENT: NC/AT,DIMAS, sclera anicteric, MMM Neck: No JVD LUNGS: Rales b/l at the bases. 3LNC, no accessory muscle use CARD: RRR S1 and S2 normal. 3/6 systolic murmur at apex and tricuspid area of auscultation ABD: Soft, NT/ND normoactive BS, no hepatojugular reflux appreciated, no guarding EXT: No edema noted CBC, BMP 02/12/19 05:24 02/14/19 05:54 Active Medications Amiodarone HCl (Cordarone -) 200 mg PO BID [facility] Last Admin: 02/14/19 09:56 Dose: 200 mg Apixaban (Eliquis -) 2.5 mg PO BID [facility] Last Admin: 02/14/19 09:57 Dose: 2.5 mg Atorvastatin Calcium (Lipitor -) 10 mg PO HS [facility] Last Admin: 02/13/19 21:35 Dose: 10 mg Cyanocobalamin (Vitamin B12 -) 2,000 mcg PO DAILY [facility] Last Admin: 02/14/19 09:57 Dose: 2,000 mcg Donepezil HCl (Aricept -) 10 mg PO DAILY [facility] Last Admin: 02/14/19 09:57 Dose: 10 mg Duloxetine HCl (Cymbalta -) 30 mg PO DAILY [facility] Last Admin: 02/14/19 09:56 Dose: 30 mg Ferrous Sulfate (Feosol -) 325 mg PO BID [facility] Last Admin: 02/14/19 09:56 Dose: 325 mg Furosemide (Lasix Injection -) 80 mg IVPB BID@0600,1400 [facility] Last Admin: 02/14/19 06:54 Dose: 80 mg Memantine (Namenda -) 10 mg PO BID [facility] Last Admin: 02/14/19 09:56 Dose: 10 mg Metoprolol Succinate (Toprol Xl -) 25 mg PO BID [facility] Last Admin: 02/14/19 09:56 Dose: 25 mg Metoprolol Tartrate (Lopressor Injection -) 5 mg IVPUSH Q4H PRN PRN Reason: HYPERTENSION Last Admin: 02/12/19 09:47 Dose: 5 mg Pantoprazole Sodium (Protonix -) 40 mg PO DAILY [facility] Last Admin: 02/14/19 09:57 Dose: 40 mg Potassium Chloride (K-Dur -) 40 meq PO BID [facility] Stop: 02/14/19 22:01 Last Admin: 02/14/19 09:56 Dose: 40 meq A/P Volume overload 2/2 to HFpEF Pulmonary HTN PAF s/p PPM Mild memory deficits Prolonged QTc HTN HLD Anxiety --Heart failure 2/2 to severe MR, however it was discussed prior about deferring valve intervention due to clinical decline --Continue Lasix increased 80mg IVP BID --Continue Amiodarone 200mg BID PO for HR control --Holding Cardizem 2/2 to hypotensive effects --Continue Toprol 25mg BID PO --Titrate O2 per SpO2 >90% --Monitor daily weights --Continue Eliquis 2.5mg BID --Continue Lipitor 10mg HS --Continue home Aricept and Namenda --Iron sulfate BID supplementation --Continue Duloxetine 30mg qdaily FEN: Fluids: Avoid; active diuresis Electrolyte abnormalities: Hypokalemia; replete with oral potassium 40mEq BID x2 doses Nutrition: Cardiac diet PPX: DVT - Eliquis on board GI - Already on Protonix qdaily Dispo: Diuresis continues; family discussions on transfer for mitral clipping vs. hospice care Case discussed with Dr. Linda Abrams, DO - IM PGY-3
--- NOTE | 2019-02-14 12:40 | PN ---
Progress Note, Physician History of Present Illness: PULMONARY AWAKE,C/O SOB AT REST,WEAK,-CP - Current Medication List Current Medications: Active Medications Amiodarone HCl (Cordarone -) 200 mg PO BID [facility] Last Admin: 02/14/19 09:56 Dose: 200 mg Apixaban (Eliquis -) 2.5 mg PO BID [facility] Last Admin: 02/14/19 09:57 Dose: 2.5 mg Atorvastatin Calcium (Lipitor -) 10 mg PO HS [facility] Last Admin: 02/13/19 21:35 Dose: 10 mg Cyanocobalamin (Vitamin B12 -) 2,000 mcg PO DAILY [facility] Last Admin: 02/14/19 09:57 Dose: 2,000 mcg Donepezil HCl (Aricept -) 10 mg PO DAILY [facility] Last Admin: 02/14/19 09:57 Dose: 10 mg Duloxetine HCl (Cymbalta -) 30 mg PO DAILY [facility] Last Admin: 02/14/19 09:56 Dose: 30 mg Ferrous Sulfate (Feosol -) 325 mg PO BID [facility] Last Admin: 02/14/19 09:56 Dose: 325 mg Furosemide (Lasix Injection -) 80 mg IVPB BID@0600,1400 [facility] Last Admin: 02/14/19 06:54 Dose: 80 mg Memantine (Namenda -) 10 mg PO BID [facility] Last Admin: 02/14/19 09:56 Dose: 10 mg Metoprolol Succinate (Toprol Xl -) 25 mg PO BID [facility] Last Admin: 02/14/19 09:56 Dose: 25 mg Metoprolol Tartrate (Lopressor Injection -) 5 mg IVPUSH Q4H PRN PRN Reason: HYPERTENSION Last Admin: 02/12/19 09:47 Dose: 5 mg Pantoprazole Sodium (Protonix -) 40 mg PO DAILY [facility] Last Admin: 02/14/19 09:57 Dose: 40 mg Potassium Chloride (Potassium Chloride Oral Liquid) 40 meq PO BID [facility] Stop: 02/14/19 22:01 - Objective Vital Signs: Vital Signs Temperature 96.4 F L 02/14/19 08:58 Pulse Rate 76 02/14/19 08:58 Respiratory Rate 22 H 02/14/19 08:58 Blood Pressure 125/74 02/14/19 08:58 O2 Sat by Pulse Oximetry (%) 96 02/13/19 21:00 Constitutional: Yes: Well Nourished, Anxious Eyes: Yes: WNL HENT: Yes: WNL Neck: Yes: WNL Cardiovascular: Yes: Pulse Irregular, S1, S2 Respiratory: Yes: Rales (BIBASLAR CRACKLES) Gastrointestinal: Yes: Normal Bowel Sounds, Soft Extremities: Yes: WNL Edema: No Labs: CBC, BMP 02/12/19 05:24 02/14/19 05:54 Assessment/Plan Problem List - Problems (1) Pulmonary HTN Code(s): I27.20 - PULMONARY HYPERTENSION, UNSPECIFIED (2) Weakness Code(s): R53.1 - WEAKNESS (3) Atrial fibrillation Code(s): I48.91 - UNSPECIFIED ATRIAL FIBRILLATION Qualifiers: Atrial fibrillation type: paroxysmal Qualified Code(s): I48.0 - Paroxysmal atrial fibrillation (4) HTN (hypertension) Code(s): I10 - ESSENTIAL (PRIMARY) HYPERTENSION (5) Mitral valve regurgitation Code(s): I34.0 - NONRHEUMATIC MITRAL (VALVE) INSUFFICIENCY (6) Pacemaker ECG pattern Code(s): Z95.0 - PRESENCE OF CARDIAC PACEMAKER IMP: SEVERE PULMONARY HTN LIKELY DUE TO VALVULAR HD(SEVERE MR) CPS/BILATRERAL PL EFFUSIONS ON PREVIOUS CT NO CONTRAST ASHD AFIB S/P AV TEJA ABLATION ,S/P PPM HTN DEMENTIA PREVIOUS + TROPONINS PLAN CONTINUE AC SUPPLEMENTAL O2 RATE CONTROL PER CARDIOLOGY LASIX ? MITRAL CLIP PLAN PER CARDIO DR CHRISTENSEN
--- NOTE | 2019-02-14 12:50 | PN ---
Progress Note (short form) - Note Progress Note: s: feels the same, weak, tired, shortness of breath. no chest pain, palps, dizziness. Vital Signs Period Temp Pulse Resp BP Sys/Rice Pulse Ox Last 24 Hr 96.4 F-98.8 F 69-78 18-22 102-126/57-74 96 Constitutional: Yes: No Distress, Calm Eyes: No: Sclera Icterus HENT: No: Nasal Congestion Cardiovascular: Yes: Regular Rate and Rhythm, JVD, Murmur (loud MR murmur), S1, S2, Other (PMI non diplaced). No: Gallop Respiratory: Yes: CTA Bilaterally. No: Accessory Muscle Use, Rales, Wheezes Gastrointestinal: Yes: Normal Bowel Sounds, Soft. 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 Yariel Morfin), here with sob, orthopnea. Acute diastolic chf, severe MR: -Weight down and mild clinical improvement initially with lasix 40 iv bid. -CT here 02/10 with [id number] effusions increased in size vs 01/26 -incr pulm congestion s/p CTA contrast load--lasix increased to 60 iv bid on 02/12 and then 80 mg IV BID on 02/13, also cardizem changed to amiodarone with improved BPs (had episodes of hypotension with diuresis) - today weight down, Cr decreasing - will continue lasix 80 mg IV BID - if she is not diuresing or signs of renal hypoperfusion evident on labs (i.e. sodium declining, bun/creat rising), will give trial of milrinone to augment forward flow - for now continue IV lasix as above -if she fails that approach, dr bland will d/w family transfer to [facility] [place] for HF eval and alvarado-clip eval at fairly hi risk, vs hospice PAF, prior AV node ablation and PPM 06/2016: -developed rapid AF 02/12, required IV Metoprolol -now in sinus, on amiodarone, cardizem dc'ed - cont metoprolol -cont eliquis adjusted for age, weight and renal fx VTach: -NSVT on tele -K/Mag per usual aggressive targets (08/09) -low dose BB as soft bp's allow htn: -cont home meds hld: -cont statin Progressive Cognitive decline: -Followed by Neuro as outpt -This plays into decision re mitral valve intervention: to be addressed again early this week w/ family and her outpt cardio
[2019-02-14] MEDS: POTASSIUM CHLORIDE ORAL LIQUID 20 MEQ/15 ML PO SCH ×2 (15:49→21:51)
--- NOTE | 2019-02-14 17:11 | PN ---
Teaching Attending Note Name of Resident: Jose Abrams ATTENDING PHYSICIAN STATEMENT I saw and evaluated the patient. I reviewed the resident's note and discussed the case with the resident. I agree with the resident's findings and plan as documented. SUBJECTIVE: Patient complains she feels short of breath. OBJECTIVE: Vital Signs Period Temp Pulse Resp BP Sys/Rice Pulse Ox Last 24 Hr 96.4 F-98.8 F 69-76 18-22 102-125/57-74 96 GENERAL: The patient is awake, alert, and fully oriented, in mild respiratory distress. LUNGS: Breath sounds decreased at both bases, clear to auscultation bilaterally , no wheezes, no crackles, no accessory muscle use. HEART: Regular rate and rhythm, S1, S2, (+) 3/6 systolic murmur. ABDOMEN: Soft, nontender, nondistended, normoactive bowel sounds, no guarding, no rebound, no hepatosplenomegaly, no masses. EXTREMITIES: 2+ pulses, warm, well-perfused, no edema. Laboratory Results - last 24 hr 02/14/19 05:54 Sodium 136 Potassium 3.4 L Chloride 93 L Carbon Dioxide 33 H Anion Gap 10 BUN 31.9 H Creatinine 1.2 Est GFR (CKD-EPI)AfAm 48.40 Est GFR (CKD-EPI)NonAf 41.76 Random Glucose 113 H Calcium 8.6 Current Medications Generic Name Dose Route Start Last Admin Trade Name Freq PRN Reason Stop Dose Admin Albuterol Sulfate 1 amp 02/14/19 16:41 Ventolin 0.083% Nebulizer Soln - NEB Q6H PRN SHORT OF BREATH/WHEEZING Amiodarone HCl 200 mg 02/13/19 11:00 02/14/19 09:56 Cordarone - PO 200 mg BID [facility] Administration Apixaban 2.5 mg 02/05/19 22:00 02/14/19 09:57 Eliquis - PO 2.5 mg BID [facility] Administration Atorvastatin Calcium 10 mg 02/05/19 22:00 02/13/19 21:35 Lipitor - PO 10 mg HS [facility] Administration Cyanocobalamin 2,000 mcg 02/08/19 10:04 02/14/19 09:57 Vitamin B12 - PO 2,000 mcg DAILY [facility] Administration Donepezil HCl 10 mg 02/06/19 10:00 02/14/19 09:57 Aricept - PO 10 mg DAILY [facility] Administration Duloxetine HCl 30 mg 02/09/19 10:00 02/14/19 09:56 Cymbalta - PO 30 mg DAILY [facility] Administration Ferrous Sulfate 325 mg 02/05/19 22:00 02/14/19 09:56 Feosol - PO 325 mg BID [facility] Administration Furosemide 80 mg 02/13/19 11:00 02/14/19 15:49 Lasix Injection - IVPB 80 mg BID@0600,1400 [facility] Administration Memantine 10 mg 02/05/19 22:00 02/14/19 09:56 Namenda - PO 10 mg BID [facility] Administration Metoprolol Succinate 25 mg 02/12/19 10:00 02/14/19 09:56 Toprol Xl - PO 25 mg BID [facility] Administration Metoprolol Tartrate 5 mg 02/12/19 09:33 02/12/19 09:47 Lopressor Injection - IVPUSH 5 mg Q4H PRN Administration HYPERTENSION Pantoprazole Sodium 40 mg 02/06/19 10:00 02/14/19 09:57 Protonix - PO 40 mg DAILY [facility] Administration Potassium Chloride 40 meq 02/14/19 11:00 02/14/19 15:49 Potassium Chloride Oral Liquid PO 02/14/19 22:01 40 meq BID [facility] Administration ASSESSMENT AND PLAN: This is an 83 year old woman with a history of PAF, AV node ablation, pacemaker , HTN, hyperlipidemia, mitral regurgitation, anxiety, dementia who presented to the ED with SOB. 1. Acute on chronic diastolic heart failure - Continue Lasix 80 mg IV bid - Weight down 3.6 kg since 02/08 - CXR 02/10 showed left basilar atelectasis vs pneumonia with left effusion - Chest CTA showed no PE, small to moderate bilateral pleural effusions increased from 01/29, bibasilar atelectasis, no infiltrate, cardiomegaly, moderate hiatal hernia 2. Hypokalemia - Replete potassium 3. Non-sustained ventricular tachycardia - Continue Toprol XL - Keep Mg>2.0, K>4.0 4. Severe mitral regurgitation 5. Severe pulmonary HTN 6. Paroxysmal atrial fibrillation - History of AV node ablation, pacemaker placement - Continue Amiodarone, Toprol XL, Eliquis 7. HTN - Continue Toprol XL 8. Hyperlipidemia - Continue Lipitor 9. Anxiety - Continue Cymbalta 10. Dementia - Continue Aricept, Namenda 11. DVT prophylaxis - On Eliquis
[2019-02-14] MEDS: ALBUTEROL SO4 0.083% IH SOL 2.5 MG/3 ML VIAL.NEB. NEB PRN ×2 (17:16→19:55)
[2019-02-14] MEDS: ATORVASTATIN CA 10 MG TABLET (FP) PO SCH (21:49)
[2019-02-15] MEDS: FUROSEMIDE 100 MG/10 ML INJECTABLE VIAL IVPB SCH ×2 (06:59→14:27)
[2019-02-15 07:28] LABS: BLOOD UREA NITROGEN 33.5 mg/dL (7-18); CALCIUM 8.3 mg/dL (8.5-10.1); CREATININE 1.4 mg/dL (0.55-1.3); MAGNESIUM 1.9 mg/dL (1.8-2.4); POTASSIUM 4.1 mmol/L (3.5-5.1)
--- NOTE | 2019-02-15 07:48 | PN ---
Progress Note (short form) - Note Progress Note: OOB to commode. Reports breathing feels better. Still with some NICOLE. No CP. Intake & Output 02/12/19 02/13/19 02/14/19 02/15/19 23:59 23:59 23:59 23:59 Intake Total 690 1000 320 310 Output Total 200 Balance 690 800 320 310 Weight 134 lb 12.8 oz 134 lb 12.8 oz 133 lb 2 oz 132 lb 8 oz Last Vital Signs Temp Pulse Resp BP Pulse Ox 97.9 F 85 18 108/73 97 02/15/19 06:00 02/15/19 06:00 02/15/19 06:00 02/15/19 06:00 02/14/19 21:00 Active Medications Albuterol Sulfate (Ventolin 0.083% Nebulizer Soln -) 1 amp NEB Q6H PRN PRN Reason: SHORT OF BREATH/WHEEZING Last Admin: 02/14/19 19:55 Dose: 1 amp Amiodarone HCl (Cordarone -) 200 mg PO BID [facility] Last Admin: 02/14/19 21:49 Dose: 200 mg Apixaban (Eliquis -) 2.5 mg PO BID [facility] Last Admin: 02/14/19 21:49 Dose: 2.5 mg Atorvastatin Calcium (Lipitor -) 10 mg PO HS [facility] Last Admin: 02/14/19 21:49 Dose: 10 mg Cyanocobalamin (Vitamin B12 -) 2,000 mcg PO DAILY [facility] Last Admin: 02/14/19 09:57 Dose: 2,000 mcg Donepezil HCl (Aricept -) 10 mg PO DAILY [facility] Last Admin: 02/14/19 09:57 Dose: 10 mg Duloxetine HCl (Cymbalta -) 30 mg PO DAILY [facility] Last Admin: 02/14/19 09:56 Dose: 30 mg Ferrous Sulfate (Feosol -) 325 mg PO BID [facility] Last Admin: 02/14/19 21:49 Dose: 325 mg Furosemide (Lasix Injection -) 80 mg IVPB BID@0600,1400 [facility] Last Admin: 02/15/19 06:59 Dose: 80 mg Memantine (Namenda -) 10 mg PO BID [facility] Last Admin: 02/14/19 21:49 Dose: 10 mg Metoprolol Succinate (Toprol Xl -) 25 mg PO BID [facility] Last Admin: 02/14/19 21:49 Dose: 25 mg Metoprolol Tartrate (Lopressor Injection -) 5 mg IVPUSH Q4H PRN PRN Reason: HYPERTENSION Last Admin: 02/12/19 09:47 Dose: 5 mg Pantoprazole Sodium (Protonix -) 40 mg PO DAILY [facility] Last Admin: 02/14/19 09:57 Dose: 40 mg Gen: awake, alert, NAD at rest HEENT: NC/AT,DIMAS, sclera anicteric, MMM Neck: No JVD LUNGS: Improving bibasilar rales, no wheeze CARD: RRR S1 and S2 normal. 3/6 systolic murmur ABD: Soft, NT/ND normoactive BS, no guarding EXT: No edema noted Laboratory Results - last 24 hr 02/15/19 05:48 Sodium 135 L Potassium 4.1 Chloride 94 L Carbon Dioxide 33 H Anion Gap 8 BUN 33.5 H Creatinine 1.4 H Est GFR (CKD-EPI)AfAm 40.17 Est GFR (CKD-EPI)NonAf 34.66 Random Glucose 128 H Calcium 8.3 L Magnesium 1.9 Problem List - Problems (1) Pulmonary HTN Code(s): I27.20 - PULMONARY HYPERTENSION, UNSPECIFIED (2) Weakness Code(s): R53.1 - WEAKNESS (3) Atrial fibrillation Code(s): I48.91 - UNSPECIFIED ATRIAL FIBRILLATION Qualifiers: Atrial fibrillation type: paroxysmal Qualified Code(s): I48.0 - Paroxysmal atrial fibrillation (4) HTN (hypertension) Code(s): I10 - ESSENTIAL (PRIMARY) HYPERTENSION (5) Mitral valve regurgitation Code(s): I34.0 - NONRHEUMATIC MITRAL (VALVE) INSUFFICIENCY (6) Pacemaker ECG pattern Code(s): Z95.0 - PRESENCE OF CARDIAC PACEMAKER IMP: SEVERE PULMONARY HTN LIKELY DUE TO VALVULAR HD(SEVERE MR) CPS/BILATRERAL PL EFFUSIONS ON PREVIOUS CT NO CONTRAST ASHD AFIB S/P AV TEJA ABLATION ,S/P PPM HTN DEMENTIA PREVIOUS + TROPONINS PLAN CONTINUE AC SUPPLEMENTAL O2 RATE CONTROL PER CARDIOLOGY LASIX NO PULMONARY CONTRAINDICATION FOR DC PLANNING Dr Stubbs
[2019-02-15] MEDS: metoPROLOL SUCCINATE 25 MG TAB.SR.24H (FP) PO SCH ×2 (09:31→21:15)
[2019-02-15] MEDS: DULoxetine HCL 30 MG CAPSULE.DR PO SCH (09:31)
[2019-02-15] MEDS: AMIODARONE HCL 200 MG TABLET (FP) PO SCH ×2 (09:31→21:15)
[2019-02-15] MEDS: MEMANTINE HCL 10 MG TABLET (FP) PO SCH ×2 (09:31→21:15)
[2019-02-15] MEDS: DONEPEZIL HCL 10 MG TABLET (FP) PO SCH (09:32)
[2019-02-15] MEDS: FERROUS SO4 325 MG TABLET (FP) PO SCH ×2 (09:32→21:15)
[2019-02-15] MEDS: PANTOPRAZOLE 40 MG TABLET (FP) PO SCH (09:32)
[2019-02-15] MEDS: APIXABAN 2.5 MG TABLET PO SCH ×2 (09:32→21:15)
[2019-02-15] MEDS: CYANOCOBALAMIN 1,000 MCG TABLET (FP) PO SCH (09:32)
--- NOTE | 2019-02-15 10:11 | PN ---
Progress Note (short form) - Note Progress Note: Attending Addendum I have seen and examined the indicated patient independently/along with the resident team. I have personally verified all friend exam findings and historical components. I have personally interpreted all diagnostics indicated per todays orders and reviewed interpretation of indicated subspecialty services. This patient meets a high level of medical complexity and warrants inpatient admission to avoid decompensation and worsening of the indicated illness. 60 minutes have been spent in the completion of this admission. S: Agree with historical findings as outlined in resident documentation regarding history of present illness. 10 system ROS completed and is negative aside from indicated issues in the resident/attending history of present illness and full documentation. Past Medical History and Past Surgical Histories reviewed in depth; per resident note Social history is reviewed; per resident note; Complete family history is reviewed with patient and is non-pertinent aside from the indicated issues outlined above. No sudden history of cardiac . O: All vital signs reviewed per ER records and are as per EMR NAD, AAOx2, Resting in bed; mentating at baseline per prior encounters NC AT EOMI PERRLA Neck supple, trachea midline, no marita LN RRR s1/2 Lungs CTAB, w/ sym expansion NT ND +BS No skin breakdown or rashes noted CN2-12 wnl, no new focal deficits noted Muscle tone normal, no deficits in motor function or strength noted Normal mood, appropriate behavior, average insight EKG: Reviewed prior diagnostics CXR: Reviewed study; new ordered. Pending. A/P: Patient seen, examined, and discussed in depth with resident team. Problem list reviewed per resident note and agree with their discussion aside from as supplemented by myself below. Problems include: -Acute diastolic CHF (Continues to diurese with now PO lasix; followup per CV recs. No worsening SOB. Will go ahead and monitor on the floor and continue to optimize lytes.) -Chronic severe Mitral Valve Disease (Patietn of Dr. Tyler; discussing with CV and primary regarding if indication to XF for carmen eval [very high risk] vs. hospice. Palliative has seen before. Continue to monitor. -PAF s/p ablation, PPM (continue with amio, metoprolol. Of dilt. Age/renal- adjusted eliquis) -Hx VT (Continue to monitor K/Mg and continue amio; s/p PPM) -Hx HTN -Hx HLD -Hx Dementia Continue to monitor on the floor; agree with plan as documented per resident note.
--- NOTE | 2019-02-15 11:07 | PN ---
Progress Note (short form) - Note Progress Note: s: feels tired, short of breath. no chest pain, palps, dizziness. Vital Signs Period Temp Pulse Resp BP Sys/Rice Pulse Ox Last 24 Hr 97.6 F-98.0 F 73-87 18-20 96-132/64-81 96-97 Constitutional: Yes: No Distress, Calm Eyes: No: Sclera Icterus HENT: No: Nasal Congestion Cardiovascular: Yes: Regular Rate and Rhythm, JVD, Murmur (loud MR murmur), S1, S2, Other (PMI non diplaced). No: Gallop Respiratory: Yes: CTA Bilaterally. No: Accessory Muscle Use, Rales, Wheezes Gastrointestinal: Yes: Normal Bowel Sounds, Soft. 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 [place] (Dr. Yariel Morfin), here with sob, orthopnea. Acute diastolic chf, severe MR: -Weight down and mild clinical improvement initially with lasix 40 iv bid. -CT here 02/10 with [id number] effusions increased in size vs 01/26 -incr pulm congestion s/p CTA contrast load--lasix increased to 60 iv bid on 02/12 and then 80 mg IV BID on 02/13, also cardizem changed to amiodarone with improved BPs (had episodes of hypotension with diuresis) - today weight down, BUN/Cr stable, CXR appears improved - will continue lasix 80 mg IV BID -if she fails above approach, dr bland will d/w family transfer [place] [facility] [place] and alvarado-clip eval at fairly hi risk, vs hospice PAF, prior AV node ablation and PPM 06/2016: -developed rapid AF 02/12, required IV Metoprolol -now in sinus, on amiodarone, cardizem dc'ed - cont metoprolol -cont eliquis adjusted for age, weight and renal fx VTach: -NSVT on tele -K/Mag per usual aggressive targets (08/09) -low dose BB as soft bp's allow htn: -cont home meds hld: -cont statin Progressive Cognitive decline: -Followed by Neuro as outpt -This plays into decision re mitral valve intervention: to be addressed again early this week w/ family and her outpt cardio
--- NOTE | 2019-02-15 13:37 | CONSULT ---
Consult Consult Specialty:: Nephrology Reason for Consultation:: elevated creatinine - History of Present Illness Chief Complaint: shortness of breath History of Present Illness: Pt is an 83 year old female with pmhx of chf, dementia, htn, hld, ckd, a-fib, and mitral regurg who presents to the ER for shortness of breath. SHe was admitted and has been treated for CHF. She has been diuresed with lasix. 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 She feels that breathing is a little better however she feels weak and has decreased appetite. Her daughter is at bedside who helped with history. 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 (Cognitive decline) Cardio/Vascular: Yes: AFIB, HTN, Hyperlipdemia, Mitral Insufficiency (MVR w Mod- Severe MR), Other (AV Node Ablation) Renal/: Yes: Renal Inusuff, UTI Infectious Disease: Yes: Other (UTIS) - Past Surgical History Past Surgical History: Yes: Permanent Pacemaker - Alcohol/Substance Use Hx Alcohol Use: No - Smoking History Smoking history: Former smoker Have you smoked in the past 12 months: No Aproximately how many cigarettes per day: 0 If you are a former smoker, when did you quit?: 30 YEARS AGO - Social History Usual Living Arrangement: Alone ADL: Independent History of Recent Travel: No Home Medications - Allergies Allergies/Adverse Reactions: Allergies Allergy/AdvReac Type Severity Reaction Status Date / Time No Known Allergies Allergy Verified 02/05/19 09:46 - Home Medications Home Medications: Ambulatory Orders Diltiazem HCl [Cartia Xt] 240 mg PO DAILY 06/12/18 Esomeprazole Magnesium 40 mg PO DAILY 06/12/18 Fluoxetine HCl [Prozac] 20 mg PO DAILY 06/12/18 Sucralfate [Carafate -] 1 gm PO TID 06/12/18 Apixaban [Eliquis] 2.5 mg PO BID 10/30/18 Atorvastatin Ca [Lipitor] 10 mg PO HS 10/30/18 Donepezil HCl 10 mg PO DAILY 10/30/18 Memantine HCl 10 mg PO BID 10/30/18 Cyanocobalamin (Vitamin B-12) [Vitamin B12] 5,000 mcg PO DAILY 01/27/19 Iron 325 mg PO BID 01/27/19 Metoprolol Succinate 25 mg PO BID 01/27/19 Lisinopril [Prinivil] 2.5 mg PO DAILY #30 tablet 01/31/19 Furosemide [Lasix] 20 mg PO DAILY #15 tablet 02/01/19 Family Medical History Family History: Denies Review of Systems - Review of Systems Constitutional: reports: Malaise Eyes: reports: No Symptoms HENT: reports: No Symptoms Neck: reports: No Symptoms Cardiovascular: reports: Edema, Shortness of Breath Respiratory: reports: SOB on Exertion Gastrointestinal: reports: No Symptoms Genitourinary: reports: No Symptoms Musculoskeletal: reports: Muscle Weakness Integumentary: reports: No Symptoms Neurological: reports: Pre-Existing Deficit Endocrine: reports: No Symptoms Hematology/Lymphatic: reports: No Symptoms Psychiatric: reports: No Symptoms Physical Exam Vital Signs: Vital Signs Temperature 97.9 F 02/15/19 06:00 Pulse Rate 87 02/15/19 08:20 Respiratory Rate 18 02/15/19 08:20 Blood Pressure 129/64 02/15/19 08:20 O2 Sat by Pulse Oximetry (%) 96 02/15/19 09:00 Constitutional: Yes: Calm Eyes: Yes: Conjunctiva Clear HENT: Yes: Atraumatic Cardiovascular: Yes: S1, S2 Respiratory: Yes: Rhonchi Gastrointestinal: Yes: Soft Musculoskeletal: Yes: WNL Edema: Yes Edema: LLE: 1+, RLE: 1+ Neurological: Yes: Oriented Psychiatric: Yes: Oriented Labs: CBC, BMP 02/12/19 05:24 02/15/19 05:48 Laboratory Tests 02/05/19 02/06/19 02/08/19 10:10 07:27 06:50 Creatinine 1.1 1.1 1.1 02/13/19 02/14/19 02/15/19 06:00 05:54 05:48 Creatinine 1.3 1.2 1.4 H Imaging - Results Chest X-ray: Report Reviewed Cat Scan: Report Reviewed Problem List - Problems (1) Azotemia Code(s): R79.89 - OTHER SPECIFIED ABNORMAL FINDINGS OF BLOOD CHEMISTRY (2) Shortness of breath Code(s): R06.02 - SHORTNESS OF BREATH (3) Malaise Code(s): R53.81 - OTHER MALAISE (4) Weakness Code(s): R53.1 - WEAKNESS Assessment/Plan Current Medications Generic Name Dose Route Start Last Admin Trade Name Freq PRN Reason Stop Dose Admin Albuterol Sulfate 1 amp 02/14/19 16:41 02/14/19 19:55 Ventolin 0.083% Nebulizer Soln - NEB 1 amp Q6H PRN Administration SHORT OF BREATH/WHEEZING Amiodarone HCl 200 mg 02/13/19 11:00 02/15/19 09:31 Cordarone - PO 200 mg BID PETTY Administration Apixaban 2.5 mg 02/05/19 22:00 02/15/19 09:32 Eliquis - PO 2.5 mg BID PETTY Administration Atorvastatin Calcium 10 mg 02/05/19 22:00 02/14/19 21:49 Lipitor - PO 10 mg HS PETTY Administration Cyanocobalamin 2,000 mcg 02/08/19 10:04 02/15/19 09:32 Vitamin B12 - PO 2,000 mcg DAILY PETTY Administration Donepezil HCl 10 mg 02/06/19 10:00 02/15/19 09:32 Aricept - PO 10 mg DAILY PETTY Administration Duloxetine HCl 30 mg 02/09/19 10:00 02/15/19 09:31 Cymbalta - PO 30 mg DAILY PETTY Administration Ferrous Sulfate 325 mg 02/05/19 22:00 02/15/19 09:32 Feosol - PO 325 mg BID PETTY Administration Furosemide 80 mg 02/13/19 11:00 02/15/19 06:59 Lasix Injection - IVPB 80 mg BID@0600,1400 PETTY Administration Memantine 10 mg 02/05/19 22:00 02/15/19 09:31 Namenda - PO 10 mg BID PETTY Administration Metoprolol Succinate 25 mg 02/12/19 10:00 02/15/19 09:31 Toprol Xl - PO 25 mg BID PETTY Administration Metoprolol Tartrate 5 mg 02/12/19 09:33 02/12/19 09:47 Lopressor Injection - IVPUSH 5 mg Q4H PRN Administration HYPERTENSION Pantoprazole Sodium 40 mg 02/06/19 10:00 02/15/19 09:32 Protonix - PO 40 mg DAILY PETTY Administration Laboratory Tests 02/11/19 02/12/19 02/12/19 06:30 05:24 15:12 Creatinine 1.1 0.9 1.1 02/13/19 02/14/19 02/15/19 06:00 05:54 05:48 Creatinine 1.3 1.2 1.4 H Impression 1. CKD with acute component 2. chf 3. mitral regurg 4. dementia 5. a-fib 6. hld Plan - consider decreasing dose of diuretics - monitor renal function - will order renal ultrasound - check ua - avoid nephrotoxins and nsaids - case discussed at length with family
[2019-02-15] MEDS: MIRTAZAPINE 15 MG TABLET (FP) PO SCH (21:15)
[2019-02-15] MEDS: ATORVASTATIN CA 10 MG TABLET (FP) PO SCH (21:15)
[2019-02-16 00:13] LABS: EPI CELLS 1.7 /HPF (0-5/HPF); HYALINE CASTS 7 /lpf (0-8); URINE APPEARANCE CLEAR; URINE BACTERIA 0.3 /hpf (NEGATIVE); URINE BILIRUBIN NEGATIVE (NEGATIVE); URINE COLOR YELLOW; URINE GLUCOSE (UA) NEGATIVE (NEGATIVE); URINE KETONE NEGATIVE (NEGATIVE); URINE LEUK ESTERASE TRACE (NEGATIVE); URINE NITRITE NEGATIVE (NEGATIVE); URINE PROTEIN NEGATIVE (NEGATIVE); URINE RBC 2 /hpf (0-4); URINE UROBILINOGEN 0.2 mg/dL (0.2-1.0); URINE WBC 2 /hpf (0-5)
[2019-02-16] MEDS: FUROSEMIDE 100 MG/10 ML INJECTABLE VIAL IVPB SCH ×2 (06:14→14:59)
[2019-02-16 06:19] LABS: HEMATOCRIT 33.4 % (32.4-45.2); MCH 30.9 pg (25.7-33.7); MCHC 33.1 g/dl (32.0-36.0); MEAN CELL VOLUME 93.3 fl (80-96); MEAN PLT VOLUME 10.5 fl (7.5-11.1); PLATELET COUNT 222 K/MM3 (134-434); RBC 3.57 M/mm3 (3.60-5.2); RDW 14.3 % (11.6-15.6); WHITE BLOOD COUNT 11.5 K/mm3 (4.0-10.0)
[2019-02-16 07:04] LABS: ALBUMIN 2.9 g/dl (3.4-5.0); BILIRUBIN,TOTAL 1.3 mg/dL (0.2-1); BLOOD UREA NITROGEN 34.7 mg/dL (7-18); CALCIUM 8.3 mg/dL (8.5-10.1); CREATININE 1.3 mg/dL (0.55-1.3); MAGNESIUM 1.7 mg/dL (1.8-2.4); TOT PROT 6.3 g/dl (6.4-8.2)
[2019-02-16 07:11] LABS: POTASSIUM 2.9 mmol/L (3.5-5.1)
[2019-02-16] MEDS ORDERED: MAGNESIUM SULF 50% (8.12 MEQ/2 ML-1 GM VIAL) IVPB ONE (07:17)
[2019-02-16] MEDS: POTASSIUM CHLORIDE ORAL LIQUID 20 MEQ/15 ML PO SCH ×2 (10:53→21:25)
[2019-02-16] MEDS: PANTOPRAZOLE 40 MG TABLET (FP) PO SCH (10:54)
[2019-02-16] MEDS: MEMANTINE HCL 10 MG TABLET (FP) PO SCH ×2 (10:54→21:26)
[2019-02-16] MEDS: AMIODARONE HCL 200 MG TABLET (FP) PO SCH ×2 (10:54→21:25)
[2019-02-16] MEDS: APIXABAN 2.5 MG TABLET PO SCH ×2 (10:54→21:25)
[2019-02-16] MEDS: CYANOCOBALAMIN 1,000 MCG TABLET (FP) PO SCH (10:54)
[2019-02-16] MEDS: metoPROLOL SUCCINATE 25 MG TAB.SR.24H (FP) PO SCH ×2 (10:54→21:25)
[2019-02-16] MEDS: DONEPEZIL HCL 10 MG TABLET (FP) PO SCH (10:54)
[2019-02-16] MEDS: FERROUS SO4 325 MG TABLET (FP) PO SCH ×2 (10:55→21:25)
--- NOTE | 2019-02-16 11:09 | PN ---
Progress Note (short form) - Note Progress Note: s: feels tired. no sob, chest pain, palps, dizziness. Vital Signs Period Temp Pulse Resp BP Sys/Rice Pulse Ox Last 24 Hr 97.7 F-98.7 F 76-82 16-20 103-129/57-75 93-96 Constitutional: Yes: No Distress, Calm Eyes: No: Sclera Icterus HENT: No: Nasal Congestion Cardiovascular: Yes: Regular Rate and Rhythm, JVD, Murmur (loud MR murmur), S1, S2, Other (PMI non diplaced). No: Gallop Respiratory: Yes: CTA Bilaterally. No: Accessory Muscle Use, Rales, Wheezes Gastrointestinal: Yes: Normal Bowel Sounds, Soft. No: Tenderness Extremities: No: Cold, Cyanosis Edema: No Integumentary: No: Jaundice Neurological: Yes: Alert, Oriented (x3) Psychiatric: No: Agitated Current Medications Generic Name Dose Route Start Last Admin Trade Name Freq PRN Reason Stop Dose Admin Albuterol Sulfate 1 amp 02/14/19 16:41 02/14/19 19:55 Ventolin 0.083% Nebulizer Soln - NEB 1 amp Q6H PRN Administration SHORT OF BREATH/WHEEZING Amiodarone HCl 200 mg 02/13/19 11:00 02/16/19 10:54 Cordarone - PO 200 mg BID PETTY Administration Apixaban 2.5 mg 02/05/19 22:00 02/16/19 10:54 Eliquis - PO 2.5 mg BID PETTY Administration Atorvastatin Calcium 10 mg 02/05/19 22:00 02/15/19 21:15 Lipitor - PO 10 mg HS PETTY Administration Cyanocobalamin 2,000 mcg 02/08/19 10:04 02/16/19 10:54 Vitamin B12 - PO 2,000 mcg DAILY PETTY Administration Donepezil HCl 10 mg 02/06/19 10:00 02/16/19 10:54 Aricept - PO 10 mg DAILY PETTY Administration Ferrous Sulfate 325 mg 02/05/19 22:00 02/16/19 10:55 Feosol - PO 325 mg BID PETTY Administration Furosemide 80 mg 02/13/19 11:00 02/16/19 06:14 Lasix Injection - IVPB 80 mg BID@0600,1400 PETTY Administration Memantine 10 mg 02/05/19 22:00 02/16/19 10:54 Namenda - PO 10 mg BID PETTY Administration Metoprolol Succinate 25 mg 02/12/19 10:00 02/16/19 10:54 Toprol Xl - PO 25 mg BID PETTY Administration Metoprolol Tartrate 5 mg 02/12/19 09:33 02/12/19 09:47 Lopressor Injection - IVPUSH 5 mg Q4H PRN Administration HYPERTENSION Mirtazapine 15 mg 02/15/19 22:00 02/15/19 21:15 Remeron - PO 15 mg HS PETTY Administration Pantoprazole Sodium 40 mg 02/06/19 10:00 02/16/19 10:54 Protonix - PO 40 mg DAILY PETTY Administration Potassium Chloride 40 meq 02/16/19 10:00 02/16/19 10:53 Potassium Chloride Oral Liquid PO 02/16/19 22:01 40 meq BID PETTY Administration CBC, BMP 02/16/19 05:30 02/16/19 05:30 Assessment/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 here with sob, orthopnea. Acute diastolic chf, severe MR: -Weight down and mild clinical improvement initially with lasix 40 iv bid. -CT here 02/10 with [id number] effusions increased in size vs 01/26 -incr pulm congestion s/p CTA contrast load--lasix increased to 60 iv bid on 02/12 and then 80 mg IV BID on 02/13, also cardizem changed to amiodarone with improved BPs (had episodes of hypotension with diuresis) 02/16: weight down, BUN/Cr stable, CXR appears improved - will continue lasix 80 mg IV BID -if she fails above approach, dr bland will d/w [place] [facility] [place] and alvarado-clip eval at fairly hi risk, vs hospice PAF, prior AV node ablation and PPM 06/2016: -developed rapid AF 02/12, required IV Metoprolol -now in sinus, on amiodarone, cardizem dc'ed - cont metoprolol -cont eliquis adjusted for age, weight and renal fx VTach: -NSVT on tele -K/Mag per usual aggressive targets (08/09) -low dose BB as soft bp's allow htn: -cont home meds hld: -cont statin Progressive Cognitive decline: -Followed by Neuro as outpt -This plays into decision re mitral valve intervention: to be addressed again early this week w/ family and her outpt cardio
--- NOTE | 2019-02-16 11:26 | PN ---
Progress Note (short form) - Note Progress Note: HPI: Awake sitting up in bed. Reports NICOLE without any chest pain or palpitations. Vital Signs Temperature 97.7 F 02/16/19 05:00 Pulse Rate 77 02/16/19 08:41 Respiratory Rate 16 02/16/19 08:41 Blood Pressure 124/67 02/16/19 08:41 O2 Sat by Pulse Oximetry (%) 93 L 02/16/19 10:00 Gen: NAD, awake, alert, sitting up in bed HEENT: NC/AT,DIMAS, sclera anicteric, MMM Neck: No JVD LUNGS: Rales b/l at the bases. 2LNC, no accessory muscle use CARD: RRR S1 and S2 normal. 3/6 systolic murmur at apex and tricuspid area of auscultation ABD: Soft, NT/ND normoactive BS, no hepatojugular reflux appreciated, no guarding EXT: No edema noted CBC, BMP 02/16/19 05:30 02/16/19 05:30 Active Medications Albuterol Sulfate (Ventolin 0.083% Nebulizer Soln -) 1 amp NEB Q6H PRN PRN Reason: SHORT OF BREATH/WHEEZING Last Admin: 02/14/19 19:55 Dose: 1 amp Amiodarone HCl (Cordarone -) 200 mg PO BID [facility] Last Admin: 02/16/19 10:54 Dose: 200 mg Apixaban (Eliquis -) 2.5 mg PO BID [facility] Last Admin: 02/16/19 10:54 Dose: 2.5 mg Atorvastatin Calcium (Lipitor -) 10 mg PO HS [facility] Last Admin: 02/15/19 21:15 Dose: 10 mg Cyanocobalamin (Vitamin B12 -) 2,000 mcg PO DAILY [facility] Last Admin: 02/16/19 10:54 Dose: 2,000 mcg Donepezil HCl (Aricept -) 10 mg PO DAILY [facility] Last Admin: 02/16/19 10:54 Dose: 10 mg Ferrous Sulfate (Feosol -) 325 mg PO BID [facility] Last Admin: 02/16/19 10:55 Dose: 325 mg Furosemide (Lasix Injection -) 80 mg IVPB BID@0600,1400 [facility] Last Admin: 02/16/19 06:14 Dose: 80 mg Memantine (Namenda -) 10 mg PO BID [facility] Last Admin: 02/16/19 10:54 Dose: 10 mg Metoprolol Succinate (Toprol Xl -) 25 mg PO BID [facility] Last Admin: 02/16/19 10:54 Dose: 25 mg Metoprolol Tartrate (Lopressor Injection -) 5 mg IVPUSH Q4H PRN PRN Reason: HYPERTENSION Last Admin: 02/12/19 09:47 Dose: 5 mg Mirtazapine (Remeron -) 15 mg PO HS [facility] Last Admin: 02/15/19 21:15 Dose: 15 mg Nystatin (Nystop Powder -) 1 applic TP BID [facility] Pantoprazole Sodium (Protonix -) 40 mg PO DAILY [facility] Last Admin: 02/16/19 10:54 Dose: 40 mg Potassium Chloride (Potassium Chloride Oral Liquid) 40 meq PO BID [facility] Stop: 02/16/19 22:01 Last Admin: 02/16/19 10:53 Dose: 40 meq A/P Volume overload 2/2 to HFpEF Pulmonary HTN PAF s/p PPM Mild memory deficits Prolonged QTc HTN HLD Anxiety --Family meeting at 2:30pm to discuss long-term goals/expectations --Heart failure 2/2 to severe MR, however it was discussed prior about deferring valve intervention due to clinical decline --Continue Lasix increased 80mg IVP BID --Cr 1.3 today; continue to monitor --Continue Amiodarone 200mg BID PO for HR control --Holding Cardizem 2/2 to hypotensive effects --Continue Toprol 25mg BID PO --Titrate O2 per SpO2 >90% --Monitor daily weights --Weight decreased by 5kg since admission --Continue Eliquis 2.5mg BID --Continue Lipitor 10mg HS --Continue home Aricept and Namenda --Iron sulfate BID supplementation --Remeron 15mg PO HS switched due to concern of anorexia caused by Duloxetine --Anxiety seemingly well managed compared to earlier in admission --Added nystatin powder due to soft tissue skin rash FEN: Fluids: Avoid; active diuresis Electrolyte abnormalities: Hypokalemia; replete with oral potassium 40mEq BID x2 doses Nutrition: Cardiac diet PPX: DVT - Eliquis on board GI - Already on Protonix qdaily Dispo: Diuresis continues; family discussions on transfer for mitral clipping vs. hospice care Case discussed with Dr. Agustin Abrams, DO - IM PGY-3 <Jose Abrams - Last Filed: 02/16/19 11:26> - Note Progress Note: I have seen and examined the indicated patient independently/along with the resident team. I have personally verified all friend exam findings and historical components. I have personally interpreted all diagnostics indicated per todays orders and reviewed interpretation of indicated subspecialty services. This patient meets a high level of medical complexity and warrants inpatient stay to avoid decompensation and worsening of the indicated illness. S: Agree with historical findings as outlined in resident documentation regarding history of present illness. No worsening dyspnea noted but no marked improvement either. Continues on diuresis per cardiology. Nephrology also following-appreciate subspecialist input. 10 system ROS completed and is negative aside from indicated issues in the resident/attending history of present illness and full documentation. Limited as she is a somewhat poor historian. O: All vital signs reviewed per ER records and are as per EMR NAD, AAO, Resting in bed NC AT EOMI PERRLA Neck supple, trachea midline, no marita LN RRR s1/2 Lungs with crackles b/l, w/ sym expansion NT ND +BS No skin breakdown or rashes noted CN2-12 wnl, no new focal deficits noted Muscle tone normal, no deficits in motor function or strength noted Normal mood, appropriate behavior, average insight No new diagnostics noted today. A/P: Patient seen, examined, and discussed in depth with resident team. Problem list reviewed per resident note and agree with their discussion aside from as supplemented by myself below Acute respiratory failure secondary to CHF exacerbation HFpEF secondary to severe valvulopathy and pulmonary HTN Pulmonary HTN (likely secondary, pulmonary medicine recs appreciated) PAF s/p PPM, on eliquis 2/2 elevated CHADSVASC2. Continue amio, BB. Hold dilt and would avoid negative contractility inducing agents in emergency situations. Mild memory deficits (Likely would need neuropsych eval to consent on her own with procedures, daughter is HCP, with memory issues that are worse than hers per daughter) Prolonged QTc (Continue to avoid agents, monitor Mg, K) HTN HLD, continue on lipitor Anxiety (Changed to remeron due to issues with sleep; will monitor) Had long family meeting with daughter regarding her parents; her father is ill and she needs to discuss with her primary branch general manager if she wishes to pursue valvuloplasty eval given risks vs. a palliation approach. Phone call likely tomorrow and expect to have more concerete plans going forward. Patient has chronic fatigue and activity intolerance secondary to underlying severe valvular disease causing NYHA III-IV symptoms requiring persisting IV diuresis and inpatient monitoring. <Ariel Velez - Last Filed: 02/17/19 09:18>
--- NOTE | 2019-02-16 12:00 | PN ---
Progress Note (short form) - Note Progress Note: PULMONARY Denies shortness of breath, cough or wheezing currently. Vital Signs Period Temp Pulse Resp BP Sys/Rice Pulse Ox Last 24 Hr 97.7 F-98.7 F 76-82 16-20 103-129/57-75 93-96 Gen: NAD at rest Heart: RRR, +systolic murmur Lung: decreased breath sounds at the bases Abd: soft, nontender Ext: no edema CBC, BMP 02/16/19 05:30 02/16/19 05:30 Active Medications Albuterol Sulfate (Ventolin 0.083% Nebulizer Soln -) 1 amp NEB Q6H PRN PRN Reason: SHORT OF BREATH/WHEEZING Last Admin: 02/14/19 19:55 Dose: 1 amp Amiodarone HCl (Cordarone -) 200 mg PO BID [facility] Last Admin: 02/16/19 10:54 Dose: 200 mg Apixaban (Eliquis -) 2.5 mg PO BID [facility] Last Admin: 02/16/19 10:54 Dose: 2.5 mg Atorvastatin Calcium (Lipitor -) 10 mg PO HS [facility] Last Admin: 02/15/19 21:15 Dose: 10 mg Cyanocobalamin (Vitamin B12 -) 2,000 mcg PO DAILY [facility] Last Admin: 02/16/19 10:54 Dose: 2,000 mcg Donepezil HCl (Aricept -) 10 mg PO DAILY [facility] Last Admin: 02/16/19 10:54 Dose: 10 mg Ferrous Sulfate (Feosol -) 325 mg PO BID [facility] Last Admin: 02/16/19 10:55 Dose: 325 mg Furosemide (Lasix Injection -) 80 mg IVPB BID@0600,1400 [facility] Last Admin: 02/16/19 06:14 Dose: 80 mg Memantine (Namenda -) 10 mg PO BID [facility] Last Admin: 02/16/19 10:54 Dose: 10 mg Metoprolol Succinate (Toprol Xl -) 25 mg PO BID [facility] Last Admin: 02/16/19 10:54 Dose: 25 mg Metoprolol Tartrate (Lopressor Injection -) 5 mg IVPUSH Q4H PRN PRN Reason: HYPERTENSION Last Admin: 02/12/19 09:47 Dose: 5 mg Mirtazapine (Remeron -) 15 mg PO HS [facility] Last Admin: 02/15/19 21:15 Dose: 15 mg Nystatin (Nystop Powder -) 1 applic TP BID [facility] Pantoprazole Sodium (Protonix -) 40 mg PO DAILY [facility] Last Admin: 02/16/19 10:54 Dose: 40 mg Potassium Chloride (Potassium Chloride Oral Liquid) 40 meq PO BID [facility] Stop: 02/16/19 22:01 Last Admin: 02/16/19 10:53 Dose: 40 meq A/P Acute on Chronic Diastolic Heart Failure Severe Mitral Regurgitation Paroxysmal Atrial Fibrillation s/p PPM HTN Hyperlipidemia - continue lasix - monitor urine output, creatinine - daily weights - O2 to keep SpO2 >90% - rate control - continue anticoagulation - for family meeting today to discuss goals of care
[2019-02-16] MEDS ORDERED: PT OWN MED DRAWER 7, Y5N ONE (14:56)
[2019-02-16] MEDS: NYSTATIN POWDER 100,000 UNITS/GM - 15 GM TOPICAL POWDER TP SCH ×2 (15:00→21:24)
--- NOTE | 2019-02-16 15:13 | PN ---
Progress Note, Physician History of Present Illness: Pt seen and examined at bedside. She is awake and appears comfortable. She feels a little stronger today. - Current Medication List Current Medications: Active Medications Albuterol Sulfate (Ventolin 0.083% Nebulizer Soln -) 1 amp NEB Q6H PRN PRN Reason: SHORT OF BREATH/WHEEZING Last Admin: 02/14/19 19:55 Dose: 1 amp Amiodarone HCl (Cordarone -) 200 mg PO BID [facility] Last Admin: 02/16/19 10:54 Dose: 200 mg Apixaban (Eliquis -) 2.5 mg PO BID [facility] Last Admin: 02/16/19 10:54 Dose: 2.5 mg Atorvastatin Calcium (Lipitor -) 10 mg PO HS [facility] Last Admin: 02/15/19 21:15 Dose: 10 mg Cyanocobalamin (Vitamin B12 -) 2,000 mcg PO DAILY [facility] Last Admin: 02/16/19 10:54 Dose: 2,000 mcg Donepezil HCl (Aricept -) 10 mg PO DAILY [facility] Last Admin: 02/16/19 10:54 Dose: 10 mg Ferrous Sulfate (Feosol -) 325 mg PO BID [facility] Last Admin: 02/16/19 10:55 Dose: 325 mg Furosemide (Lasix Injection -) 80 mg IVPB BID@0600,1400 [facility] Last Admin: 02/16/19 14:59 Dose: 80 mg Memantine (Namenda -) 10 mg PO BID [facility] Last Admin: 02/16/19 10:54 Dose: 10 mg Metoprolol Succinate (Toprol Xl -) 25 mg PO BID [facility] Last Admin: 02/16/19 10:54 Dose: 25 mg Metoprolol Tartrate (Lopressor Injection -) 5 mg IVPUSH Q4H PRN PRN Reason: HYPERTENSION Last Admin: 02/12/19 09:47 Dose: 5 mg Mirtazapine (Remeron -) 15 mg PO HS [facility] Last Admin: 02/15/19 21:15 Dose: 15 mg Nystatin (Nystop Powder -) 1 applic TP BID [facility] Last Admin: 02/16/19 15:00 Dose: 1 applic Pantoprazole Sodium (Protonix -) 40 mg PO DAILY [facility] Last Admin: 02/16/19 10:54 Dose: 40 mg Potassium Chloride (Potassium Chloride Oral Liquid) 40 meq PO BID [facility] Stop: 02/16/19 22:01 Last Admin: 02/16/19 10:53 Dose: 40 meq - Objective Vital Signs: Vital Signs Temperature 97.8 F 02/16/19 14:30 Pulse Rate 70 02/16/19 14:30 Respiratory Rate 16 02/16/19 14:30 Blood Pressure 95/58 L 02/16/19 14:30 O2 Sat by Pulse Oximetry (%) 93 L 02/16/19 10:00 Constitutional: Yes: Calm Eyes: Yes: Conjunctiva Clear HENT: Yes: Atraumatic Neck: Yes: Supple Cardiovascular: Yes: S1, S2 Respiratory: Yes: CTA Bilaterally Gastrointestinal: Yes: Normal Bowel Sounds, Soft Genitourinary: Yes: WNL Musculoskeletal: Yes: Muscle Weakness Edema: Yes Edema: LLE: Trace, RLE: Trace Integumentary: Yes: WNL Neurological: Yes: Confusion Labs: CBC, BMP 02/16/19 05:30 02/16/19 05:30 Problem List - Problems (1) Azotemia Code(s): R79.89 - OTHER SPECIFIED ABNORMAL FINDINGS OF BLOOD CHEMISTRY (2) Shortness of breath Code(s): R06.02 - SHORTNESS OF BREATH (3) Malaise Code(s): R53.81 - OTHER MALAISE (4) Weakness Code(s): R53.1 - WEAKNESS Assessment/Plan Current Medications Generic Name Dose Route Start Last Admin Trade Name Freq PRN Reason Stop Dose Admin Albuterol Sulfate 1 amp 02/14/19 16:41 02/14/19 19:55 Ventolin 0.083% Nebulizer Soln - NEB 1 amp Q6H PRN Administration SHORT OF BREATH/WHEEZING Amiodarone HCl 200 mg 02/13/19 11:00 02/16/19 10:54 Cordarone - PO 200 mg BID [facility] Administration Apixaban 2.5 mg 02/05/19 22:00 02/16/19 10:54 Eliquis - PO 2.5 mg BID [facility] Administration Atorvastatin Calcium 10 mg 02/05/19 22:00 02/15/19 21:15 Lipitor - PO 10 mg HS [facility] Administration Cyanocobalamin 2,000 mcg 02/08/19 10:04 02/16/19 10:54 Vitamin B12 - PO 2,000 mcg DAILY [facility] Administration Donepezil HCl 10 mg 02/06/19 10:00 02/16/19 10:54 Aricept - PO 10 mg DAILY [facility] Administration Ferrous Sulfate 325 mg 02/05/19 22:00 02/16/19 10:55 Feosol - PO 325 mg BID [facility] Administration Furosemide 80 mg 02/13/19 11:00 02/16/19 14:59 Lasix Injection - IVPB 80 mg BID@0600,1400 [facility] Administration Memantine 10 mg 02/05/19 22:00 02/16/19 10:54 Namenda - PO 10 mg BID [facility] Administration Metoprolol Succinate 25 mg 02/12/19 10:00 02/16/19 10:54 Toprol Xl - PO 25 mg BID [facility] Administration Metoprolol Tartrate 5 mg 02/12/19 09:33 02/12/19 09:47 Lopressor Injection - IVPUSH 5 mg Q4H PRN Administration HYPERTENSION Mirtazapine 15 mg 02/15/19 22:00 02/15/19 21:15 Remeron - PO 15 mg HS [facility] Administration Nystatin 1 applic 02/16/19 11:30 02/16/19 15:00 Nystop Powder - TP 1 applic BID [facility] Administration Pantoprazole Sodium 40 mg 02/06/19 10:00 02/16/19 10:54 Protonix - PO 40 mg DAILY [facility] Administration Potassium Chloride 40 meq 02/16/19 10:00 02/16/19 10:53 Potassium Chloride Oral Liquid PO 02/16/19 22:01 40 meq BID [facility] Administration Laboratory Tests 02/15/19 23:00 Urine Protein Negative Urine Ketones Negative Urine Blood Negative Impression 1. CKD with acute component 2. chf 3. mitral regurg 4. dementia 5. a-fib 6. hld 7. hypokalemia 8. solitary right kidney Plan - replace potassium and magnesium - pt has one kidney - monitor lytes and volume status closely on lasix - ua negative for blood or protein - avoid nephrotoxins and nsaids - case discussed at length with family
[2019-02-16] MEDS: ALBUTEROL SO4 0.083% IH SOL 2.5 MG/3 ML VIAL.NEB. NEB PRN (19:55)
[2019-02-16] MEDS: MIRTAZAPINE 15 MG TABLET (FP) PO SCH (21:25)
[2019-02-16] MEDS: ATORVASTATIN CA 10 MG TABLET (FP) PO SCH (21:25)
[2019-02-17] MEDS: FUROSEMIDE 100 MG/10 ML INJECTABLE VIAL IVPB SCH ×2 (06:17→14:45)
--- NOTE | 2019-02-17 07:10 | PN ---
Progress Note, Physician Chief Complaint: severe MR, PPM, chronic CHF Seems slightly more comfortable Weight down History of Present Illness: TELE: NSR, PVCs - Current Medication List Current Medications: Active Medications Albuterol Sulfate (Ventolin 0.083% Nebulizer Soln -) 1 amp NEB Q6H PRN PRN Reason: SHORT OF BREATH/WHEEZING Last Admin: 02/16/19 19:55 Dose: 1 amp Amiodarone HCl (Cordarone -) 200 mg PO BID [facility] Last Admin: 02/16/19 21:25 Dose: 200 mg Apixaban (Eliquis -) 2.5 mg PO BID [facility] Last Admin: 02/16/19 21:25 Dose: 2.5 mg Atorvastatin Calcium (Lipitor -) 10 mg PO HS [facility] Last Admin: 02/16/19 21:25 Dose: 10 mg Cyanocobalamin (Vitamin B12 -) 2,000 mcg PO DAILY [facility] Last Admin: 02/16/19 10:54 Dose: 2,000 mcg Donepezil HCl (Aricept -) 10 mg PO DAILY [facility] Last Admin: 02/16/19 10:54 Dose: 10 mg Ferrous Sulfate (Feosol -) 325 mg PO BID [facility] Last Admin: 02/16/19 21:25 Dose: 325 mg Furosemide (Lasix Injection -) 80 mg IVPB BID@0600,1400 [facility] Last Admin: 02/17/19 06:17 Dose: 80 mg Memantine (Namenda -) 10 mg PO BID [facility] Last Admin: 02/16/19 21:26 Dose: 10 mg Metoprolol Succinate (Toprol Xl -) 25 mg PO BID [facility] Last Admin: 02/16/19 21:25 Dose: 25 mg Metoprolol Tartrate (Lopressor Injection -) 5 mg IVPUSH Q4H PRN PRN Reason: HYPERTENSION Last Admin: 02/12/19 09:47 Dose: 5 mg Mirtazapine (Remeron -) 15 mg PO HS [facility] Last Admin: 02/16/19 21:25 Dose: 15 mg Nystatin (Nystop Powder -) 1 applic TP BID [facility] Last Admin: 02/16/19 21:24 Dose: 1 applic Pantoprazole Sodium (Protonix -) 40 mg PO DAILY [facility] Last Admin: 02/16/19 10:54 Dose: 40 mg - Objective Vital Signs: Vital Signs Temperature 98.1 F 02/17/19 06:00 Pulse Rate 77 02/17/19 06:00 Respiratory Rate 18 02/17/19 06:00 Blood Pressure 106/61 02/17/19 06:00 O2 Sat by Pulse Oximetry (%) 95 02/16/19 21:00 Constitutional: Yes: No Distress, Calm Eyes: Yes: Conjunctiva Clear Cardiovascular: Yes: Regular Rate and Rhythm Respiratory: Yes: Other (decreased at bases b/l) Gastrointestinal: Yes: Soft (NT) Edema: No Neurological: Yes: Alert, Oriented Labs: Laboratory Tests 02/17/19 02/17/19 06:15 06:15 WBC 11.0 H Hgb 12.2 Plt Count 263 Sodium 141 Potassium 3.5 Creatinine 1.3 Magnesium 2.3 Laboratory Tests 02/17/19 02/17/19 06:15 06:15 WBC 11.0 H Hgb 12.2 Plt Count 263 Sodium 141 Potassium 3.5 BUN 29.6 H Creatinine 1.3 Magnesium 2.3 - ....Imaging EKG: Image Reviewed Assessment/Plan Assessment/Plan 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 Y[facility]fin[facility] here with sob, orthopnea. Acute diastolic chf, severe MR: -Weight down and mild clinical improvement with IV Lasix 80mg IV BID and switch to Amio -CT here 02/10 with [id number] effusions increased in size vs 01/26 -incr pulm congestion s/p CTA contrast load--lasix increased to 60 iv bid on 02/12 and then 80 mg IV BID on 02/13, also cardizem changed to amiodarone with improved BPs (had episodes of hypotension with diuresis) 02/17: weight down, BUN/Cr stable, CXR appears improved - will continue lasix 80 mg IV BID -if she fails above approach, dr bland will d/w family transfer to [facility] [place] [facility] [place] and alvarado-clip eval at fairly hi risk, vs hospice PAF, prior AV node ablation and PPM 06/2016: -developed rapid AF 02/12, required IV Metoprolol -now in sinus, on amiodarone, cardizem dc'ed - cont metoprolol -cont eliquis adjusted for age, weight and renal fx VTach: -NSVT on tele -K/Mag per usual aggressive targets (08/09) -low dose BB as soft bp's allow htn: -cont home meds hld: -cont statin Progressive Cognitive decline: -Followed by Neuro as outpt -This plays into decision re mitral valve intervention: to be addressed again early this week w/ family and her outpt cardio; emailed Dr. Bland updated her condition on 02/16, plan to speak with him again today.
[2019-02-17 07:16] LABS: HEMATOCRIT 37.8 % (32.4-45.2); HEMOGLOBIN 12.2 GM/dL (10.7-15.3); MCH 30.6 pg (25.7-33.7); MCHC 32.3 g/dl (32.0-36.0); MEAN CELL VOLUME 94.5 fl (80-96); MEAN PLT VOLUME 10.2 fl (7.5-11.1); PLATELET COUNT 263 K/MM3 (134-434); RDW 14.4 % (11.6-15.6)
[2019-02-17 07:38] LABS: BLOOD UREA NITROGEN 29.6 mg/dL (7-18); CALCIUM 8.7 mg/dL (8.5-10.1); CREATININE 1.3 mg/dL (0.55-1.3); MAGNESIUM 2.3 mg/dL (1.8-2.4); POTASSIUM 3.5 mmol/L (3.5-5.1)
[2019-02-17] MEDS: metoPROLOL SUCCINATE 25 MG TAB.SR.24H (FP) PO SCH ×2 (09:49→22:19)
[2019-02-17] MEDS: DONEPEZIL HCL 10 MG TABLET (FP) PO SCH (09:49)
[2019-02-17] MEDS: FERROUS SO4 325 MG TABLET (FP) PO SCH ×2 (09:49→22:19)
[2019-02-17] MEDS: APIXABAN 2.5 MG TABLET PO SCH ×2 (09:49→22:20)
[2019-02-17] MEDS: CYANOCOBALAMIN 1,000 MCG TABLET (FP) PO SCH (09:49)
[2019-02-17] MEDS: PANTOPRAZOLE 40 MG TABLET (FP) PO SCH (09:49)
[2019-02-17] MEDS: AMIODARONE HCL 200 MG TABLET (FP) PO SCH ×2 (09:49→22:19)
[2019-02-17] MEDS: MEMANTINE HCL 10 MG TABLET (FP) PO SCH ×2 (09:49→22:19)
[2019-02-17] MEDS: NYSTATIN POWDER 100,000 UNITS/GM - 15 GM TOPICAL POWDER TP SCH ×2 (09:51→22:20)
--- NOTE | 2019-02-17 11:56 | PN ---
Progress Note, Physician History of Present Illness: pulmonary alert,comfortable,less dyspneic - Current Medication List Current Medications: Active Medications Albuterol Sulfate (Ventolin 0.083% Nebulizer Soln -) 1 amp NEB Q6H PRN PRN Reason: SHORT OF BREATH/WHEEZING Last Admin: 02/16/19 19:55 Dose: 1 amp Amiodarone HCl (Cordarone -) 200 mg PO BID [facility] Last Admin: 02/17/19 09:49 Dose: 200 mg Apixaban (Eliquis -) 2.5 mg PO BID [facility] Last Admin: 02/17/19 09:49 Dose: 2.5 mg Atorvastatin Calcium (Lipitor -) 10 mg PO HS [facility] Last Admin: 02/16/19 21:25 Dose: 10 mg Cyanocobalamin (Vitamin B12 -) 2,000 mcg PO DAILY [facility] Last Admin: 02/17/19 09:49 Dose: 2,000 mcg Donepezil HCl (Aricept -) 10 mg PO DAILY [facility] Last Admin: 02/17/19 09:49 Dose: 10 mg Ferrous Sulfate (Feosol -) 325 mg PO BID [facility] Last Admin: 02/17/19 09:49 Dose: 325 mg Furosemide (Lasix Injection -) 80 mg IVPB BID@0600,1400 [facility] Last Admin: 02/17/19 06:17 Dose: 80 mg Memantine (Namenda -) 10 mg PO BID [facility] Last Admin: 02/17/19 09:49 Dose: 10 mg Metoprolol Succinate (Toprol Xl -) 25 mg PO BID [facility] Last Admin: 02/17/19 09:49 Dose: 25 mg Metoprolol Tartrate (Lopressor Injection -) 5 mg IVPUSH Q4H PRN PRN Reason: HYPERTENSION Last Admin: 02/12/19 09:47 Dose: 5 mg Mirtazapine (Remeron -) 15 mg PO HS [facility] Last Admin: 02/16/19 21:25 Dose: 15 mg Nystatin (Nystop Powder -) 1 applic TP BID [facility] Last Admin: 02/17/19 09:51 Dose: 1 applic Pantoprazole Sodium (Protonix -) 40 mg PO DAILY [facility] Last Admin: 02/17/19 09:49 Dose: 40 mg - Objective Vital Signs: Vital Signs Temperature 97.7 F 02/17/19 09:55 Pulse Rate 76 02/17/19 09:55 Respiratory Rate 18 02/17/19 09:55 Blood Pressure 112/60 02/17/19 09:55 O2 Sat by Pulse Oximetry (%) 95 02/16/19 21:00 Constitutional: Yes: Well Nourished, Calm Eyes: Yes: WNL HENT: Yes: WNL Neck: Yes: WNL Cardiovascular: Yes: Regular Rate and Rhythm, S1, S2 Respiratory: Yes: CTA Bilaterally Gastrointestinal: Yes: Normal Bowel Sounds, Soft Extremities: Yes: WNL Edema: No Labs: CBC, BMP 02/17/19 06:15 02/17/19 06:15 Assessment/Plan Problem List - Problems (1) Pulmonary HTN Code(s): I27.20 - PULMONARY HYPERTENSION, UNSPECIFIED (2) Weakness Code(s): R53.1 - WEAKNESS (3) Atrial fibrillation Code(s): I48.91 - UNSPECIFIED ATRIAL FIBRILLATION Qualifiers: Atrial fibrillation type: paroxysmal Qualified Code(s): I48.0 - Paroxysmal atrial fibrillation (4) HTN (hypertension) Code(s): I10 - ESSENTIAL (PRIMARY) HYPERTENSION (5) Mitral valve regurgitation Code(s): I34.0 - NONRHEUMATIC MITRAL (VALVE) INSUFFICIENCY (6) Pacemaker ECG pattern Code(s): Z95.0 - PRESENCE OF CARDIAC PACEMAKER IMP: SEVERE PULMONARY HTN LIKELY DUE TO VALVULAR HD(SEVERE MR) CPS/BILATERAL PL EFFUSIONS ASHD AFIB S/P AV TEJA ABLATION ,S/P PPM HTN DEMENTIA PREVIOUS + TROPONINS PLAN CONTINUE AC SUPPLEMENTAL O2 RATE CONTROL PER CARDIOLOGY LASIX ? MITRAL CLIP PLAN PER CARDIO DR CHRISTENSEN
--- NOTE | 2019-02-17 14:29 | PN ---
Progress Note, Physician History of Present Illness: Pt seen and examined at bedside. She is awake and appears comfortable. She denies shortness of breath at rest. - Current Medication List Current Medications: Active Medications Albuterol Sulfate (Ventolin 0.083% Nebulizer Soln -) 1 amp NEB Q6H PRN PRN Reason: SHORT OF BREATH/WHEEZING Last Admin: 02/16/19 19:55 Dose: 1 amp Amiodarone HCl (Cordarone -) 200 mg PO BID [facility] Last Admin: 02/17/19 09:49 Dose: 200 mg Apixaban (Eliquis -) 2.5 mg PO BID [facility] Last Admin: 02/17/19 09:49 Dose: 2.5 mg Atorvastatin Calcium (Lipitor -) 10 mg PO HS [facility] Last Admin: 02/16/19 21:25 Dose: 10 mg Cyanocobalamin (Vitamin B12 -) 2,000 mcg PO DAILY [facility] Last Admin: 02/17/19 09:49 Dose: 2,000 mcg Donepezil HCl (Aricept -) 10 mg PO DAILY [facility] Last Admin: 02/17/19 09:49 Dose: 10 mg Ferrous Sulfate (Feosol -) 325 mg PO BID [facility] Last Admin: 02/17/19 09:49 Dose: 325 mg Furosemide (Lasix Injection -) 80 mg IVPB BID@0600,1400 [facility] Last Admin: 02/17/19 06:17 Dose: 80 mg Memantine (Namenda -) 10 mg PO BID [facility] Last Admin: 02/17/19 09:49 Dose: 10 mg Metoprolol Succinate (Toprol Xl -) 25 mg PO BID [facility] Last Admin: 02/17/19 09:49 Dose: 25 mg Metoprolol Tartrate (Lopressor Injection -) 5 mg IVPUSH Q4H PRN PRN Reason: HYPERTENSION Last Admin: 02/12/19 09:47 Dose: 5 mg Mirtazapine (Remeron -) 15 mg PO HS [facility] Last Admin: 02/16/19 21:25 Dose: 15 mg Nystatin (Nystop Powder -) 1 applic TP BID [facility] Last Admin: 02/17/19 09:51 Dose: 1 applic Pantoprazole Sodium (Protonix -) 40 mg PO DAILY [facility] Last Admin: 02/17/19 09:49 Dose: 40 mg - Objective Vital Signs: Vital Signs Temperature 97.7 F 02/17/19 09:55 Pulse Rate 76 02/17/19 09:55 Respiratory Rate 18 02/17/19 09:55 Blood Pressure 112/60 02/17/19 09:55 O2 Sat by Pulse Oximetry (%) 95 02/17/19 09:00 Constitutional: Yes: Calm Eyes: Yes: Conjunctiva Clear HENT: Yes: Atraumatic Neck: Yes: Supple Cardiovascular: Yes: S1, S2 Respiratory: Yes: On Nasal O2 Gastrointestinal: Yes: Normal Bowel Sounds, Soft Genitourinary: Yes: WNL Musculoskeletal: Yes: WNL Edema: No Neurological: Yes: Oriented Labs: CBC, BMP 02/17/19 06:15 02/17/19 06:15 Problem List - Problems (1) Azotemia Code(s): R79.89 - OTHER SPECIFIED ABNORMAL FINDINGS OF BLOOD CHEMISTRY (2) Shortness of breath Code(s): R06.02 - SHORTNESS OF BREATH (3) Malaise Code(s): R53.81 - OTHER MALAISE (4) Weakness Code(s): R53.1 - WEAKNESS Assessment/Plan Current Medications Generic Name Dose Route Start Last Admin Trade Name Freq PRN Reason Stop Dose Admin Albuterol Sulfate 1 amp 02/14/19 16:41 02/16/19 19:55 Ventolin 0.083% Nebulizer Soln - NEB 1 amp Q6H PRN Administration SHORT OF BREATH/WHEEZING Amiodarone HCl 200 mg 02/13/19 11:00 02/17/19 09:49 Cordarone - PO 200 mg BID [facility] Administration Apixaban 2.5 mg 02/05/19 22:00 02/17/19 09:49 Eliquis - PO 2.5 mg BID [facility] Administration Atorvastatin Calcium 10 mg 02/05/19 22:00 02/16/19 21:25 Lipitor - PO 10 mg HS [facility] Administration Cyanocobalamin 2,000 mcg 02/08/19 10:04 02/17/19 09:49 Vitamin B12 - PO 2,000 mcg DAILY [facility] Administration Donepezil HCl 10 mg 02/06/19 10:00 02/17/19 09:49 Aricept - PO 10 mg DAILY [facility] Administration Ferrous Sulfate 325 mg 02/05/19 22:00 02/17/19 09:49 Feosol - PO 325 mg BID [facility] Administration Furosemide 80 mg 02/13/19 11:00 02/17/19 06:17 Lasix Injection - IVPB 80 mg BID@0600,1400 [facility] Administration Memantine 10 mg 02/05/19 22:00 02/17/19 09:49 Namenda - PO 10 mg BID [facility] Administration Metoprolol Succinate 25 mg 02/12/19 10:00 02/17/19 09:49 Toprol Xl - PO 25 mg BID [facility] Administration Metoprolol Tartrate 5 mg 02/12/19 09:33 02/12/19 09:47 Lopressor Injection - IVPUSH 5 mg Q4H PRN Administration HYPERTENSION Mirtazapine 15 mg 02/15/19 22:00 02/16/19 21:25 Remeron - PO 15 mg HS [facility] Administration Nystatin 1 applic 02/16/19 11:30 02/17/19 09:51 Nystop Powder - TP 1 applic BID [facility] Administration Pantoprazole Sodium 40 mg 02/06/19 10:00 02/17/19 09:49 Protonix - PO 40 mg DAILY [facility] Administration Impression 1. CKD with acute component 2. chf 3. mitral regurg 4. dementia 5. a-fib 6. hld 7. hypokalemia 8. solitary right kidney Plan - potassium improved - monitor renal function - cont with lasix per cardio - pt with solitary kidney - ua negative for blood or protein - avoid nephrotoxins and nsaids - case discussed with family
--- NOTE | 2019-02-17 16:00 | PN ---
Progress Note (short form) - Note Progress Note: HPI: No shortness of breath today. No events noted. No telemetry events Vital Signs Temperature 98.0 F 02/17/19 14:10 Pulse Rate 71 02/17/19 14:10 Respiratory Rate 16 02/17/19 14:10 Blood Pressure 111/58 L 02/17/19 14:10 O2 Sat by Pulse Oximetry (%) 95 02/17/19 09:00 Gen: NAD, awake, alert, sitting up in bed HEENT: NC/AT,DIMAS, sclera anicteric, MMM Neck: No JVD LUNGS: Increased aeration b/l at the bases. 2LNC CARD: RRR S1 and S2 normal. 3/6 systolic murmur at apex and tricuspid area of auscultation ABD: Soft, NT/ND normoactive BS, no hepatojugular reflux appreciated, no guarding EXT: No edema noted CBC, BMP 02/17/19 06:15 02/17/19 06:15 Active Medications Albuterol Sulfate (Ventolin 0.083% Nebulizer Soln -) 1 amp NEB Q6H PRN PRN Reason: SHORT OF BREATH/WHEEZING Last Admin: 02/16/19 19:55 Dose: 1 amp Amiodarone HCl (Cordarone -) 200 mg PO BID [facility] Last Admin: 02/17/19 09:49 Dose: 200 mg Apixaban (Eliquis -) 2.5 mg PO BID [facility] Last Admin: 02/17/19 09:49 Dose: 2.5 mg Atorvastatin Calcium (Lipitor -) 10 mg PO HS [facility] Last Admin: 02/16/19 21:25 Dose: 10 mg Cyanocobalamin (Vitamin B12 -) 2,000 mcg PO DAILY [facility] Last Admin: 02/17/19 09:49 Dose: 2,000 mcg Donepezil HCl (Aricept -) 10 mg PO DAILY [facility] Last Admin: 02/17/19 09:49 Dose: 10 mg Ferrous Sulfate (Feosol -) 325 mg PO BID [facility] Last Admin: 02/17/19 09:49 Dose: 325 mg Furosemide (Lasix Injection -) 80 mg IVPB BID@0600,1400 [facility] Last Admin: 02/17/19 14:45 Dose: 80 mg Memantine (Namenda -) 10 mg PO BID [facility] Last Admin: 02/17/19 09:49 Dose: 10 mg Metoprolol Succinate (Toprol Xl -) 25 mg PO BID [facility] Last Admin: 02/17/19 09:49 Dose: 25 mg Metoprolol Tartrate (Lopressor Injection -) 5 mg IVPUSH Q4H PRN PRN Reason: HYPERTENSION Last Admin: 02/12/19 09:47 Dose: 5 mg Mirtazapine (Remeron -) 15 mg PO HS [facility] Last Admin: 02/16/19 21:25 Dose: 15 mg Nystatin (Nystop Powder -) 1 applic TP BID [facility] Last Admin: 02/17/19 09:51 Dose: 1 applic Pantoprazole Sodium (Protonix -) 40 mg PO DAILY [facility] Last Admin: 02/17/19 09:49 Dose: 40 mg A/P Volume overload 2/2 to HFpEF Pulmonary HTN PAF s/p PPM Mild memory deficits Prolonged QTc HTN HLD Anxiety --Discussed with family regarding long-term care. Pt's daughter would like to discuss with her father and mother about long-term decisions and will get back to us tomorrow. --Heart failure 2/2 to severe MR, however it was discussed prior about deferring valve intervention due to clinical decline --Continue Lasix increased 80mg IVP BID --Continue Amiodarone 200mg BID PO for HR control --Holding Cardizem 2/2 to hypotensive effects --Continue Toprol 25mg BID PO --Titrate O2 per SpO2 >90% --Monitor daily weights --Weight decreased by 5kg since admission --Continue Eliquis 2.5mg BID --Continue Lipitor 10mg HS --Continue home Aricept and Namenda --Iron sulfate BID supplementation --Remeron 15mg PO HS continued --Added nystatin powder due to soft tissue skin rash FEN: Fluids: Avoid; active diuresis Electrolyte abnormalities: Target to K+ 4.0 Nutrition: Cardiac diet PPX: DVT - Eliquis on board GI - Already on Protonix qdaily Dispo: Diuresis continues; family discussions Case discussed with Dr. Agustin Abrams, DO - IM PGY-3 <Jose Abrams - Last Filed: 02/17/19 16:02> - Note Progress Note: I have seen and examined the indicated patient independently/along with the resident team. I have personally verified all friend exam findings and historical components. I have personally interpreted all diagnostics indicated per todays orders and reviewed interpretation of indicated subspecialty services. This patient meets a high level of medical complexity and warrants inpatient stay to avoid decompensation and worsening of the indicated illness. S: Met with daughter yesterday over the phone; she spoke with CV (Dr. Mar) who states that she should benefit from OP Acute Rehab. Daughter is concerned her mom doesn't wish for this and would be resistent to further rehab. Willconsult CM, SW. Did not indicate need or desire for stat transfer. We will diurese and convert to PO as needed and have her continue to work with PT. If transfer is not indicated she will likely require placement in Acute vs. Subacute Rehabilitation vs. Home Physical Therapy. Will discuss regarding palliative care but she wishes to have this conversation not over weekend. 10 system ROS completed and is negative aside from indicated issues in the resident/attending history of present illness and full documentation. Limited as she is a somewhat poor historian. O: All vital signs reviewed per ER records and are as per EMR NAD, AAO, Resting in bed NC AT EOMI PERRLA Neck supple, trachea midline, no marita LN RRR s1/2 Lungs with crackles b/l, w/ sym expansion NT ND +BS No skin breakdown or rashes noted CN2-12 wnl, no new focal deficits noted Muscle tone normal, no deficits in motor function or strength noted Normal mood, appropriate behavior, average insight No new diagnostics noted today. A/P: Patient seen, examined, and discussed in depth with resident team. Problem list reviewed per resident note and agree with their discussion aside from as supplemented by myself below Acute respiratory failure secondary to CHF exacerbation HFpEF secondary to severe valvulopathy and pulmonary HTN Pulmonary HTN (likely secondary, pulmonary medicine recs appreciated) PAF s/p PPM, on eliquis 2/2 elevated CHADSVASC2. Continue amio, BB. Hold dilt and would avoid negative contractility inducing agents in emergency situations. Mild memory deficits (Likely would need neuropsych eval to consent on her own with procedures, daughter is HCP, with memory issues that are worse than hers per daughter) Prolonged QTc (Continue to avoid agents, monitor Mg, K) HTN HLD, continue on lipitor Anxiety (Changed to remeron due to issues with sleep; will monitor) Continue diuresis; CM and SW consults to help elucidate placement. Family meeting regarding palliative approach before end of weekend. Dispo will be rehab vs. home with services as acute transfer doesn't seem indicated at this juncture. Will continue IV diuretics per our CV team and monitor on the floor, following electrolytes and monitoring for O2 requirements. Continue monitoring strict Is and Os. Repeat CXR wednesday. <Ariel Velez - Last Filed: 02/18/19 12:56>
[2019-02-17] MEDS: MIRTAZAPINE 15 MG TABLET (FP) PO SCH (22:19)
[2019-02-17] MEDS: ATORVASTATIN CA 10 MG TABLET (FP) PO SCH (22:19)
[2019-02-17] MEDS: POTASSIUM CHLORIDE ORAL LIQUID 20 MEQ/15 ML PO SCH (22:20)
[2019-02-18] MEDS: FUROSEMIDE 100 MG/10 ML INJECTABLE VIAL IVPB SCH ×2 (06:38→15:13)
[2019-02-18 06:59] LABS: BLOOD UREA NITROGEN 26.5 mg/dL (7-18); CALCIUM 8.3 mg/dL (8.5-10.1); CREATININE 1.2 mg/dL (0.55-1.3); MAGNESIUM 1.8 mg/dL (1.8-2.4); POTASSIUM 3.3 mmol/L (3.5-5.1)
[2019-02-18] MEDS ORDERED: LIDOCAINE 5% TOPICAL PATCH TP ONE (07:07)
--- NOTE | 2019-02-18 09:57 | PN ---
Progress Note (short form) - Note Progress Note: HPI: No shortness of breath today. No events noted. No telemetry events Vital Signs Temperature 97.6 F 02/18/19 09:07 Pulse Rate 69 02/18/19 09:07 Respiratory Rate 16 02/18/19 09:07 Blood Pressure 120/66 02/18/19 09:07 O2 Sat by Pulse Oximetry (%) 98 02/17/19 21:00 Gen: NAD, awake, alert, sitting up in bed HEENT: NC/AT,DIMAS, sclera anicteric, MMM Neck: No JVD LUNGS: Increased aeration b/l at the bases. 2LNC CARD: RRR S1 and S2 normal. 3/6 systolic murmur at apex and tricuspid area of auscultation ABD: Soft, NT/ND normoactive BS, no hepatojugular reflux appreciated, no guarding EXT: No edema noted CBC, BMP 02/17/19 06:15 02/18/19 05:45 Active Medications Albuterol Sulfate (Ventolin 0.083% Nebulizer Soln -) 1 amp NEB Q6H PRN PRN Reason: SHORT OF BREATH/WHEEZING Last Admin: 02/16/19 19:55 Dose: 1 amp Amiodarone HCl (Cordarone -) 200 mg PO BID [facility] Last Admin: 02/17/19 22:19 Dose: 200 mg Apixaban (Eliquis -) 2.5 mg PO BID [facility] Last Admin: 02/17/19 22:20 Dose: 2.5 mg Atorvastatin Calcium (Lipitor -) 10 mg PO HS [facility] Last Admin: 02/17/19 22:19 Dose: 10 mg Cyanocobalamin (Vitamin B12 -) 2,000 mcg PO DAILY [facility] Last Admin: 02/17/19 09:49 Dose: 2,000 mcg Donepezil HCl (Aricept -) 10 mg PO DAILY [facility] Last Admin: 02/17/19 09:49 Dose: 10 mg Ferrous Sulfate (Feosol -) 325 mg PO BID [facility] Last Admin: 02/17/19 22:19 Dose: 325 mg Furosemide (Lasix Injection -) 80 mg IVPB BID@0600,1400 [facility] Last Admin: 02/18/19 06:38 Dose: 80 mg Potassium Chloride (Potassium Chloride 10 Meq Premix Ivpb -) 10 meq in 100 mls @ 100 mls/hr IVPB Q60M [facility] Stop: 02/18/19 10:14 Memantine (Namenda -) 10 mg PO BID [facility] Last Admin: 02/17/19 22:19 Dose: 10 mg Metoprolol Succinate (Toprol Xl -) 25 mg PO BID [facility] Last Admin: 02/17/19 22:19 Dose: 25 mg Metoprolol Tartrate (Lopressor Injection -) 5 mg IVPUSH Q4H PRN PRN Reason: HYPERTENSION Last Admin: 02/12/19 09:47 Dose: 5 mg Mirtazapine (Remeron -) 15 mg PO HS [facility] Last Admin: 02/17/19 22:19 Dose: 15 mg Miscellaneous (Lidoderm Patch Removal) 1 each MC ONCE ONE Stop: 02/18/19 20:01 Nystatin (Nystop Powder -) 1 applic TP BID [facility] Last Admin: 02/17/19 22:20 Dose: 1 applic Pantoprazole Sodium (Protonix -) 40 mg PO DAILY [facility] Last Admin: 02/17/19 09:49 Dose: 40 mg Potassium Chloride (Potassium Chloride Oral Liquid) 40 meq PO BID [facility] Stop: 02/18/19 10:01 Last Admin: 02/17/19 22:20 Dose: 40 meq A/P Volume overload 2/2 to HFpEF Pulmonary HTN PAF s/p PPM Mild memory deficits Prolonged QTc HTN HLD Anxiety --Heart failure 2/2 to severe MR, however it was discussed prior about deferring valve intervention due to clinical decline --Continue Lasix 80mg IVP BID --Discuss with cardiology if Torsemide PO of equivalent strength would be of benefit --Trial of oxygen titration to SpO2 >90% --Continue Amiodarone 200mg BID PO for HR control --Holding Cardizem 2/2 to hypotensive effects --Continue Toprol 25mg BID PO --Monitor daily weights --Weight decreased by 5kg since admission --Continue Eliquis 2.5mg BID --Continue Lipitor 10mg HS --Continue home Aricept and Namenda --Iron sulfate BID supplementation --Remeron 15mg PO HS continued --Added nystatin powder due to soft tissue skin rash FEN: Fluids: Avoid; active diuresis Electrolyte abnormalities: Target to K+ 4.0 Nutrition: Cardiac diet PPX: DVT - Eliquis on board GI - Already on Protonix qdaily Dispo: Possibility of [facility] Case discussed with Dr. Agustin Abrams, DO - IM PGY-3 <Jose Abrams - Last Filed: 02/18/19 09:57> - Note Progress Note: I have seen and examined the indicated patient independently/along with the resident team. I have personally verified all friend exam findings and historical components. I have personally interpreted all diagnostics indicated per todays orders and reviewed interpretation of indicated subspecialty services. This patient meets a high level of medical complexity and warrants inpatient stay to avoid decompensation and worsening of the indicated illness. S: No new issues; SOB endorsed by patient as improved and daughter states that she is eating better. No new complaints. Hemodynamics stable and afebrile. Continue monitoring on the floor on medicine service. Pending rehab evaluation. Discussing case in depth with weekend SW but limitations with staffing noted on weekend hours. 10 system ROS completed and is negative aside from indicated issues in the resident/attending history of present illness and full documentation. Limited as she is a somewhat poor historian. O: All vital signs reviewed per ER records and are as per EMR NAD, AAO, Resting in bed NC AT EOMI PERRLA Neck supple, trachea midline, no marita LN RRR s1/2 Lungs with crackles b/l, w/ sym expansion NT ND +BS No skin breakdown or rashes noted CN2-12 wnl, no new focal deficits noted Muscle tone normal, no deficits in motor function or strength noted Normal mood, appropriate behavior No new diagnostics noted today. A/P: Patient seen, examined, and discussed in depth with resident team. Problem list reviewed per resident note and agree with their discussion aside from as supplemented by myself below Acute respiratory failure secondary to CHF exacerbation, improved subjectively today. HFpEF secondary to severe valvulopathy and pulmonary HTN Pulmonary HTN (likely secondary, pulmonary medicine recs appreciated) PAF s/p PPM, on eliquis 2/2 elevated CHADSVASC2. Continue amio, BB. Hold dilt and would avoid negative contractility inducing agents in emergency situations. Mild memory deficits (Likely would need neuropsych eval to consent on her own with procedures, daughter is HCP, with memory issues that are worse than hers per daughter) Prolonged QTc (Continue to avoid agents, monitor Mg, K) HTN HLD, continue on lipitor Anxiety (Changed to remeron due to issues with sleep; will monitor) Continue diuresis; CM and SW consults to help elucidate placement pending and discussing with their services today. Family meeting regarding palliative approach before end of weekend. Dispo will be rehab vs. home with services as acute transfer doesn't seem indicated at this juncture. Will continue IV diuretics per our CV team and monitor on the floor, following electrolytes and monitoring for O2 requirements. Continue monitoring strict Is and Os. Repeat CXR wednesday. <Ariel Velez - Last Filed: 02/18/19 12:59>
[2019-02-18] MEDS: KCL 10 MEQ IVPB 10 MEQ/100 ML INFUS.BAG IVPB SCH ×3 (11:01→13:54)
[2019-02-18] MEDS: POTASSIUM CHLORIDE ORAL LIQUID 20 MEQ/15 ML PO SCH (11:02)
[2019-02-18] MEDS: CYANOCOBALAMIN 1,000 MCG TABLET (FP) PO SCH (11:03)
[2019-02-18] MEDS: PANTOPRAZOLE 40 MG TABLET (FP) PO SCH (11:04)
[2019-02-18] MEDS: DONEPEZIL HCL 10 MG TABLET (FP) PO SCH (11:04)
[2019-02-18] MEDS: AMIODARONE HCL 200 MG TABLET (FP) PO SCH ×2 (11:04→22:36)
[2019-02-18] MEDS: metoPROLOL SUCCINATE 25 MG TAB.SR.24H (FP) PO SCH ×2 (11:04→22:36)
[2019-02-18] MEDS: APIXABAN 2.5 MG TABLET PO SCH ×2 (11:05→22:35)
[2019-02-18] MEDS: FERROUS SO4 325 MG TABLET (FP) PO SCH ×2 (11:05→22:36)
[2019-02-18] MEDS: MEMANTINE HCL 10 MG TABLET (FP) PO SCH ×2 (11:05→22:36)
[2019-02-18] MEDS: NYSTATIN POWDER 100,000 UNITS/GM - 15 GM TOPICAL POWDER TP SCH ×2 (11:06→22:37)
--- NOTE | 2019-02-18 13:12 | PN ---
Progress Note (short form) - Note Progress Note: s: no chest pain, palps, dyspnea, dizziness. per daughter is more awake and eating more Current Medications Amiodarone HCl (Cordarone -) 200 mg PO BID [facility] Last Admin: 02/18/19 11:04 Dose: 200 mg Apixaban (Eliquis -) 2.5 mg PO BID [facility] Last Admin: 02/18/19 11:05 Dose: 2.5 mg Atorvastatin Calcium (Lipitor -) 10 mg PO HS [facility] Last Admin: 02/17/19 22:19 Dose: 10 mg Cyanocobalamin (Vitamin B12 -) 2,000 mcg PO DAILY [facility] Last Admin: 02/18/19 11:03 Dose: 2,000 mcg Donepezil HCl (Aricept -) 10 mg PO DAILY [facility] Last Admin: 02/18/19 11:04 Dose: 10 mg Ferrous Sulfate (Feosol -) 325 mg PO BID [facility] Last Admin: 02/18/19 11:05 Dose: 325 mg Furosemide (Lasix Injection -) 80 mg IVPB BID@0600,1400 [facility] Last Admin: 02/18/19 06:38 Dose: 80 mg Memantine (Namenda -) 10 mg PO BID [facility] Last Admin: 02/18/19 11:05 Dose: 10 mg Metoprolol Succinate (Toprol Xl -) 25 mg PO BID [facility] Last Admin: 02/18/19 11:04 Dose: 25 mg Metoprolol Tartrate (Lopressor Injection -) 5 mg IVPUSH Q4H PRN PRN Reason: HYPERTENSION Last Admin: 02/12/19 09:47 Dose: 5 mg Mirtazapine (Remeron -) 15 mg PO HS [facility] Last Admin: 02/17/19 22:19 Dose: 15 mg Miscellaneous (Lidoderm Patch Removal) 1 each MC ONCE ONE Stop: 02/18/19 20:01 Nystatin (Nystop Powder -) 1 applic TP BID [facility] Last Admin: 02/18/19 11:06 Dose: 1 applic Pantoprazole Sodium (Protonix -) 40 mg PO DAILY [facility] Last Admin: 02/18/19 11:04 Dose: 40 mg Vital Signs Period Temp Pulse Resp BP Sys/Rice Pulse Ox Last 24 Hr 97.6 F-98.2 F 66-78 16-18 107-127/57-70 98 Constitutional: Yes: No Distress, Calm Eyes: Yes: Conjunctiva Clear Cardiovascular: Yes: Regular Rate and Rhythm Respiratory: Yes: Other (decreased at bases b/l) Gastrointestinal: Yes: Soft (NT) Edema: No Neurological: Yes: Alert, Oriented no jaundice, diaphoresis not agitated Assessment/Plan tele: 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 Yariel Morfin), here with sob, orthopnea. 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
[2019-02-18] MEDS ORDERED: ALBUTEROL SO4 0.083% IH SOL 2.5 MG/3 ML VIAL.NEB. NEB PRN (13:23)
--- NOTE | 2019-02-18 13:40 | PN ---
Progress Note (short form) - Note Progress Note: Reports breathing feels overall better. Still with some NICOLE. No CP. Intake & Output 02/15/19 02/16/19 02/17/19 02/18/19 23:59 23:59 23:59 23:59 Intake Total 1630 300 800 Balance 1630 300 800 Weight 132 lb 8 oz 131 lb 9.6 oz 126 lb 15.992 oz 127 lb 3.2 oz Last Vital Signs Temp Pulse Resp BP Pulse Ox 97.6 F 69 16 120/66 98 02/18/19 09:07 02/18/19 09:07 02/18/19 09:07 02/18/19 09:07 02/17/19 21:00 Active Medications Albuterol Sulfate (Ventolin 0.083% Nebulizer Soln -) 1 amp NEB Q4H PRN PRN Reason: SHORT OF BREATH/WHEEZING Amiodarone HCl (Cordarone -) 200 mg PO BID [facility] Last Admin: 02/18/19 11:04 Dose: 200 mg Apixaban (Eliquis -) 2.5 mg PO BID [facility] Last Admin: 02/18/19 11:05 Dose: 2.5 mg Atorvastatin Calcium (Lipitor -) 10 mg PO HS [facility] Last Admin: 02/17/19 22:19 Dose: 10 mg Cyanocobalamin (Vitamin B12 -) 2,000 mcg PO DAILY [facility] Last Admin: 02/18/19 11:03 Dose: 2,000 mcg Donepezil HCl (Aricept -) 10 mg PO DAILY [facility] Last Admin: 02/18/19 11:04 Dose: 10 mg Ferrous Sulfate (Feosol -) 325 mg PO BID [facility] Last Admin: 02/18/19 11:05 Dose: 325 mg Furosemide (Lasix Injection -) 80 mg IVPB BID@0600,1400 [facility] Last Admin: 02/18/19 06:38 Dose: 80 mg Memantine (Namenda -) 10 mg PO BID [facility] Last Admin: 02/18/19 11:05 Dose: 10 mg Metoprolol Succinate (Toprol Xl -) 25 mg PO BID [facility] Last Admin: 02/18/19 11:04 Dose: 25 mg Metoprolol Tartrate (Lopressor Injection -) 5 mg IVPUSH Q4H PRN PRN Reason: HYPERTENSION Last Admin: 02/12/19 09:47 Dose: 5 mg Mirtazapine (Remeron -) 15 mg PO HS [facility] Last Admin: 02/17/19 22:19 Dose: 15 mg Miscellaneous (Lidoderm Patch Removal) 1 each MC ONCE ONE Stop: 02/18/19 20:01 Nystatin (Nystop Powder -) 1 applic TP BID [facility] Last Admin: 02/18/19 11:06 Dose: 1 applic Pantoprazole Sodium (Protonix -) 40 mg PO DAILY [facility] Last Admin: 02/18/19 11:04 Dose: 40 mg Gen: awake, alert, NAD at rest HEENT: NC/AT,DIMAS, sclera anicteric, MMM Neck: No JVD LUNGS: Improving bibasilar rales, no wheeze CARD: RRR S1 and S2 normal. 3/6 systolic murmur ABD: Soft, NT/ND normoactive BS, no guarding EXT: No edema noted Laboratory Results - last 24 hr 02/05/19 02/05/19 02/05/19 10:10 10:10 10:10 WBC 10.5 H RBC 3.89 Hgb 11.8 Hct 36.6 MCV 94.1 MCH 30.4 MCHC 32.3 RDW 14.7 Plt Count 249 MPV 10.1 Absolute Neuts (auto) 7.8 Neutrophils % 73.5 Lymphocytes % 14.4 Monocytes % 10.2 Eosinophils % 1.3 Basophils % 0.6 Nucleated RBC % 0 Sodium 141 Potassium 4.3 Chloride 104 Carbon Dioxide 28 Anion Gap 9 BUN 26.6 H Creatinine 1.1 Est GFR (CKD-EPI)AfAm 53.77 Est GFR (CKD-EPI)NonAf 46.39 Random Glucose 101 Calcium 8.3 L Phosphorus 3.9 Magnesium 2.4 Total Bilirubin 0.5 AST 17 ALT 30 Alkaline Phosphatase 113 Troponin I < 0.02 B-Natriuretic Peptide 36157.3 H Total Protein 6.3 L Albumin 3.1 L Urine Color Urine Appearance Urine pH Ur Specific [place] Urine Protein Urine Glucose (UA) Urine Ketones Urine Blood Urine Nitrite Urine Bilirubin Urine Urobilinogen Ur Leukocyte Esterase Urine WBC (Auto) Urine RBC (Auto) Urine Casts (Auto) U Pathogenic Cast Auto U Epithel Cells (Auto) Urine Bacteria (Auto) 02/05/19 02/05/19 02/06/19 10:10 18:00 07:27 WBC 8.6 RBC 3.74 Hgb 11.5 Hct 35.1 MCV 93.9 MCH 30.9 MCHC 32.9 RDW 14.6 Plt Count 248 MPV 9.9 Absolute Neuts (auto) 6.3 Neutrophils % 73.5 Lymphocytes % 13.1 Monocytes % 11.1 H Eosinophils % 1.7 Basophils % 0.6 Nucleated RBC % 0 Sodium Potassium Chloride Carbon Dioxide Anion Gap BUN Creatinine Est GFR (CKD-EPI)AfAm Est GFR (CKD-EPI)NonAf Random Glucose Calcium Phosphorus Magnesium Total Bilirubin AST ALT Alkaline Phosphatase Troponin I 0.02 B-Natriuretic Peptide Total Protein Albumin Urine Color Dk yellow Urine Appearance Cloudy Urine pH 5.0 Ur Specific [place] 1.033 Urine Protein 1+ H Urine Glucose (UA) Negative Urine Ketones Trace H Urine Blood Negative Urine Nitrite Negative Urine Bilirubin 1+ H Urine Urobilinogen 1.0 Ur Leukocyte Esterase 1+ H Urine WBC (Auto) 12 Urine RBC (Auto) 2 Urine Casts (Auto) 25 U Pathogenic Cast Auto None seen U Epithel Cells (Auto) 15.3 Urine Bacteria (Auto) 7.6 02/06/19 02/07/19 02/08/19 07:27 06:40 06:50 WBC 8.5 RBC 3.76 Hgb 11.4 Hct 35.8 MCV 95.2 MCH 30.4 MCHC 31.9 L RDW 14.2 Plt Count 234 MPV 10.2 Absolute Neuts (auto) Neutrophils % Lymphocytes % Monocytes % Eosinophils % Basophils % Nucleated RBC % Sodium 137 141 Potassium 3.8 3.4 L Chloride 99 102 Carbon Dioxide 32 31 Anion Gap 6 L 8 BUN 24.1 H 20.0 H Creatinine 1.1 1.1 Est GFR (CKD-EPI)AfAm 53.77 53.77 Est GFR (CKD-EPI)NonAf 46.39 46.39 Random Glucose 116 H 101 Calcium 8.6 8.1 L Phosphorus 3.9 3.9 Magnesium 2.2 1.9 Total Bilirubin 0.7 AST 15 ALT 28 Alkaline Phosphatase 113 Troponin I B-Natriuretic Peptide Total Protein 6.3 L Albumin 3.2 L Urine Color Urine Appearance Urine pH Ur Specific [place] Urine Protein Urine Glucose (UA) Urine Ketones Urine Blood Urine Nitrite Urine Bilirubin Urine Urobilinogen Ur Leukocyte Esterase Urine WBC (Auto) Urine RBC (Auto) Urine Casts (Auto) U Pathogenic Cast Auto U Epithel Cells (Auto) Urine Bacteria (Auto) 02/08/19 02/09/19 02/09/19 06:50 05:40 05:40 WBC 9.2 RBC 3.71 Hgb 11.6 Hct 34.8 MCV 93.7 MCH 31.2 MCHC 33.3 RDW 14.9 Plt Count 231 MPV 10.1 Absolute Neuts (auto) Neutrophils % Lymphocytes % Monocytes % Eosinophils % Basophils % Nucleated RBC % Sodium 141 139 Potassium 4.0 4.3 Chloride 102 100 Carbon Dioxide 31 34 H Anion Gap 7 L 6 L BUN 18.6 H 17.7 Creatinine 1.1 1.1 Est GFR (CKD-EPI)AfAm 53.77 53.77 Est GFR (CKD-EPI)NonAf 46.39 46.39 Random Glucose 92 108 H Calcium 8.4 L 8.6 Phosphorus 3.8 Magnesium 2.0 1.8 Total Bilirubin AST ALT Alkaline Phosphatase Troponin I B-Natriuretic Peptide 87295.0 H Total Protein Albumin Urine Color Urine Appearance Urine pH Ur Specific [place] Urine Protein Urine Glucose (UA) Urine Ketones Urine Blood Urine Nitrite Urine Bilirubin Urine Urobilinogen Ur Leukocyte Esterase Urine WBC (Auto) Urine RBC (Auto) Urine Casts (Auto) U Pathogenic Cast Auto U Epithel Cells (Auto) Urine Bacteria (Auto) 02/10/19 02/11/19 02/11/19 05:53 06:30 06:30 WBC 12.0 H RBC 3.87 Hgb 11.8 Hct 36.3 MCV 93.8 MCH 30.6 MCHC 32.6 RDW 14.5 Plt Count 234 MPV 10.6 Absolute Neuts (auto) Neutrophils % Lymphocytes % Monocytes % Eosinophils % Basophils % Nucleated RBC % Sodium 137 135 L Potassium 4.6 3.5 Chloride 96 L 92 L Carbon Dioxide 30 33 H Anion Gap 11 10 BUN 20.7 H 20.1 H Creatinine 1.1 1.1 Est GFR (CKD-EPI)AfAm 53.77 53.77 Est GFR (CKD-EPI)NonAf 46.39 46.39 Random Glucose 168 H 180 H Calcium 9.2 8.8 Phosphorus Magnesium 2.1 1.8 Total Bilirubin AST ALT Alkaline Phosphatase Troponin I B-Natriuretic Peptide Total Protein Albumin Urine Color Urine Appearance Urine pH Ur Specific [place] Urine Protein Urine Glucose (UA) Urine Ketones Urine Blood Urine Nitrite Urine Bilirubin Urine Urobilinogen Ur Leukocyte Esterase Urine WBC (Auto) Urine RBC (Auto) Urine Casts (Auto) U Pathogenic Cast Auto U Epithel Cells (Auto) Urine Bacteria (Auto) 02/12/19 02/12/19 02/12/19 05:24 05:24 15:12 WBC 10.5 H RBC 3.60 Hgb 11.3 Hct 33.9 MCV 94.2 MCH 31.3 MCHC 33.3 RDW 14.5 Plt Count 201 MPV 10.4 Absolute Neuts (auto) 8.2 H Neutrophils % 78.4 Lymphocytes % 10.6 Monocytes % 9.8 Eosinophils % 0.7 Basophils % 0.5 Nucleated RBC % 0 Sodium 139 138 Potassium 4.2 4.5 Chloride 95 L 94 L Carbon Dioxide 36 H 32 Anion Gap 8 11 BUN 22.8 H 24.2 H Creatinine 0.9 1.1 Est GFR (CKD-EPI)AfAm 68.53 53.77 Est GFR (CKD-EPI)NonAf 59.13 46.39 Random Glucose 111 H 148 H Calcium 8.6 8.6 Phosphorus Magnesium 1.9 1.9 Total Bilirubin AST ALT Alkaline Phosphatase Troponin I B-Natriuretic Peptide Total Protein Albumin Urine Color Urine Appearance Urine pH Ur Specific [place] Urine Protein Urine Glucose (UA) Urine Ketones Urine Blood Urine Nitrite Urine Bilirubin Urine Urobilinogen Ur Leukocyte Esterase Urine WBC (Auto) Urine RBC (Auto) Urine Casts (Auto) U Pathogenic Cast Auto U Epithel Cells (Auto) Urine Bacteria (Auto) 02/18/19 05:45 WBC RBC Hgb Hct MCV MCH MCHC RDW Plt Count MPV Absolute Neuts (auto) Neutrophils % Lymphocytes % Monocytes % Eosinophils % Basophils % Nucleated RBC % Sodium 140 Potassium 3.3 L Chloride 99 Carbon Dioxide 35 H Anion Gap 7 L BUN 26.5 H Creatinine 1.2 Est GFR (CKD-EPI)AfAm 48.40 Est GFR (CKD-EPI)NonAf 41.76 Random Glucose 102 Calcium 8.3 L Phosphorus Magnesium 1.8 Total Bilirubin AST ALT Alkaline Phosphatase Troponin I B-Natriuretic Peptide Total Protein Albumin Urine Color Urine Appearance Urine pH Ur Specific [place] Urine Protein Urine Glucose (UA) Urine Ketones Urine Blood Urine Nitrite Urine Bilirubin Urine Urobilinogen Ur Leukocyte Esterase Urine WBC (Auto) Urine RBC (Auto) Urine Casts (Auto) U Pathogenic Cast Auto U Epithel Cells (Auto) Urine Bacteria (Auto) Problem List - Problems (1) Pulmonary HTN Code(s): I27.20 - PULMONARY HYPERTENSION, UNSPECIFIED (2) Weakness Code(s): R53.1 - WEAKNESS (3) Atrial fibrillation Code(s): I48.91 - UNSPECIFIED ATRIAL FIBRILLATION Qualifiers: Atrial fibrillation type: paroxysmal Qualified Code(s): I48.0 - Paroxysmal atrial fibrillation (4) HTN (hypertension) Code(s): I10 - ESSENTIAL (PRIMARY) HYPERTENSION (5) Mitral valve regurgitation Code(s): I34.0 - NONRHEUMATIC MITRAL (VALVE) INSUFFICIENCY (6) Pacemaker ECG pattern Code(s): Z95.0 - PRESENCE OF CARDIAC PACEMAKER IMP: SEVERE PULMONARY HTN LIKELY DUE TO VALVULAR HD(SEVERE MR) CPS/BILATRERAL PL EFFUSIONS ON PREVIOUS CT NO CONTRAST ASHD AFIB S/P AV TEJA ABLATION ,S/P PPM HTN DEMENTIA PREVIOUS + TROPONINS PLAN CONTINUE AC SUPPLEMENTAL O2 RATE CONTROL PER CARDIOLOGY LASIX NO PULMONARY CONTRAINDICATION FOR DC PLANNING Dr Stubbs
--- NOTE | 2019-02-18 14:54 | EKG ---
Test Reason : Blood Pressure : / mmHG Vent. Rate : 071 BPM Atrial Rate : 071 BPM P-R Int : 140 ms QRS Dur : 100 ms QT Int : 442 ms P-R-T Axes : 064 027 020 degrees QTc Int : 480 ms SINUS RHYTHM WITH FREQUENT PREMATURE VENTRICULAR COMPLEXES POSSIBLE LEFT ATRIAL ENLARGEMENT NONSPECIFIC ST AND T WAVE ABNORMALITY PROLONGED QT ABNORMAL ECG WHEN COMPARED WITH ECG OF 10-FEB-2019 10:56, PREMATURE VENTRICULAR COMPLEXES ARE NOW PRESENT Confirmed by Kristin Ledezma ([id number]) on 02/18/2019 2:54:20 PM Referred By: Keegan DARLING Confirmed By:Kristin Ledezma
--- NOTE | 2019-02-18 18:11 | PN ---
Progress Note (short form) - Note Progress Note: 1. CKD with acute component 2. chf 3. mitral regurg 4. dementia 5. a-fib 6. hld 7. hypokalemia 8. solitary right kidney clinically improving Current Medications Albuterol Sulfate (Ventolin 0.083% Nebulizer Soln -) 1 amp NEB Q4H PRN PRN Reason: SHORT OF BREATH/WHEEZING Amiodarone HCl (Cordarone -) 200 mg PO BID [facility] Last Admin: 02/18/19 11:04 Dose: 200 mg Apixaban (Eliquis -) 2.5 mg PO BID [facility] Last Admin: 02/18/19 11:05 Dose: 2.5 mg Atorvastatin Calcium (Lipitor -) 10 mg PO HS [facility] Last Admin: 02/17/19 22:19 Dose: 10 mg Cyanocobalamin (Vitamin B12 -) 2,000 mcg PO DAILY [facility] Last Admin: 02/18/19 11:03 Dose: 2,000 mcg Donepezil HCl (Aricept -) 10 mg PO DAILY [facility] Last Admin: 02/18/19 11:04 Dose: 10 mg Ferrous Sulfate (Feosol -) 325 mg PO BID [facility] Last Admin: 02/18/19 11:05 Dose: 325 mg Furosemide (Lasix Injection -) 80 mg IVPB BID@0600,1400 [facility] Last Admin: 02/18/19 15:13 Dose: 80 mg Memantine (Namenda -) 10 mg PO BID [facility] Last Admin: 02/18/19 11:05 Dose: 10 mg Metoprolol Succinate (Toprol Xl -) 25 mg PO BID [facility] Last Admin: 02/18/19 11:04 Dose: 25 mg Metoprolol Tartrate (Lopressor Injection -) 5 mg IVPUSH Q4H PRN PRN Reason: HYPERTENSION Last Admin: 02/12/19 09:47 Dose: 5 mg Mirtazapine (Remeron -) 15 mg PO HS [facility] Last Admin: 02/17/19 22:19 Dose: 15 mg Miscellaneous (Lidoderm Patch Removal) 1 each MC ONCE ONE Stop: 02/18/19 20:01 Nystatin (Nystop Powder -) 1 applic TP BID [facility] Last Admin: 02/18/19 11:06 Dose: 1 applic Pantoprazole Sodium (Protonix -) 40 mg PO DAILY [facility] Last Admin: 02/18/19 11:04 Dose: 40 mg Last Vital Signs Temp Pulse Resp BP Pulse Ox 98.0 F 66 18 115/68 100 02/18/19 17:26 02/18/19 17:26 02/18/19 17:26 02/18/19 17:26 02/18/19 09:00 alert in nad Lungs clear Heart reg Abd soft nontender Ext no edema CBC, BMP 02/17/19 06:15 02/18/19 05:45 Plan continue k replacements
[2019-02-18] MEDS ORDERED: LIDOCAINE PATCH REMOVAL MC ONE (20:00)
[2019-02-18] MEDS: ATORVASTATIN CA 10 MG TABLET (FP) PO SCH (22:36)
[2019-02-18] MEDS: MIRTAZAPINE 15 MG TABLET (FP) PO SCH (22:36)
[2019-02-19] MEDS: FUROSEMIDE 100 MG/10 ML INJECTABLE VIAL IVPB SCH ×2 (06:27→14:04)
[2019-02-19 07:25] LABS: BLOOD UREA NITROGEN 13.5 mg/dL (7-18); CREATININE 0.6 mg/dL (0.55-1.3)
[2019-02-19 08:09] LABS: POTASSIUM 2.9 mmol/L (3.5-5.1)
[2019-02-19] MEDS ORDERED: POTASSIUM CHLORIDE TABS 20 MEQ TABLET.ER (FP) PO ONE (08:57)
--- NOTE | 2019-02-19 08:58 | PN ---
Physical Exam: SUBJECTIVE: Patient seen and examined; no new complaints. Did ambulate with PT yesterday (appreciate ancillary services help in ongoing management) and daughter appreciates CM and SW input. She notes that her mom has increased PO intake without any new issues and slightly improved respiratory status. She did have worsening of her SOB yesterday but did not have any decompensation with ambulation. Noted subspecialty input-appreciated. CV replaced K today and I gave additional 20mEq-aggressive goals for 4/2 continued. 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 OBJECTIVE: Vital Signs Period Temp Pulse Resp BP Sys/Rice Pulse Ox Last 24 Hr 97.6 F-98.2 F 64-74 16-20 97-121/51-69 100-100 All vital signs reviewed per records and are as per EMR NAD, AAOx2, Resting in bed on NC NC AT EOMI PERRLA Neck supple, trachea midline, no marita LN RRR s1/2 Lungs with crackles b/l, w/ sym expansion NT ND +BS No skin breakdown or rashes noted CN2-12 wnl, no new focal deficits noted Muscle tone normal, no deficits in motor function or strength noted Normal mood, appropriate behavior No new diagnostics noted today. Laboratory Results - last 24 hr 02/19/19 05:30 Sodium 143 Potassium 2.9 L* Chloride 104 Carbon Dioxide 30 Anion Gap 9 BUN 13.5 Creatinine 0.6 Est GFR (CKD-EPI)AfAm 97.69 Est GFR (CKD-EPI)NonAf 84.29 Random Glucose 104 Calcium 9.0 Magnesium 2.0 Active Medications Generic Name Dose Route Start Last Admin Trade Name Freq PRN Reason Stop Dose Admin Albuterol Sulfate 1 amp 02/18/19 13:23 Ventolin 0.083% Nebulizer Soln - NEB Q4H PRN SHORT OF BREATH/WHEEZING Amiodarone HCl 200 mg 02/13/19 11:00 02/18/19 22:36 Cordarone - PO 200 mg BID PETTY Administration Apixaban 2.5 mg 02/05/19 22:00 02/18/19 22:35 Eliquis - PO 2.5 mg BID PETTY Administration Atorvastatin Calcium 10 mg 02/05/19 22:00 02/18/19 22:36 Lipitor - PO 10 mg HS PETTY Administration Cyanocobalamin 2,000 mcg 02/08/19 10:04 02/18/19 11:03 Vitamin B12 - PO 2,000 mcg DAILY [facility] Administration Donepezil HCl 10 mg 02/06/19 10:00 02/18/19 11:04 Aricept - PO 10 mg DAILY [facility] Administration Ferrous Sulfate 325 mg 02/05/19 22:00 02/18/19 22:36 Feosol - PO 325 mg BID PETTY Administration Furosemide 80 mg 02/13/19 11:00 02/19/19 06:27 Lasix Injection - IVPB 80 mg BID@0600,1400 [facility] Administration Potassium Chloride 10 meq in 100 mls @ 100 mls/hr 02/19/19 09:00 Potassium Chloride 10 Meq Premix Ivpb - IVPB 02/19/19 10:59 Q60M PETTY Memantine 10 mg 02/05/19 22:00 02/18/19 22:36 Namenda - PO 10 mg BID [facility] Administration Metoprolol Succinate 25 mg 02/12/19 10:00 02/18/19 22:36 Toprol Xl - PO 25 mg BID [facility] Administration Metoprolol Tartrate 5 mg 02/12/19 09:33 02/12/19 09:47 Lopressor Injection - IVPUSH 5 mg Q4H PRN Administration HYPERTENSION Mirtazapine 15 mg 02/15/19 22:00 02/18/19 22:36 Remeron - PO 15 mg HS [facility] Administration Nystatin 1 applic 02/16/19 11:30 02/18/19 22:37 Nystop Powder - TP 1 applic BID [facility]TY Administration Pantoprazole Sodium 40 mg 02/06/19 10:00 02/18/19 11:04 Protonix - PO 40 mg DAILY [facility] Administration Potassium Chloride 40 meq 02/20/19 10:00 K-Dur - PO DAILY [facility] A/P: Patient seen, examined, and discussed with family. Her problems include: Acute respiratory failure secondary to CHF exacerbation (Continues to improve; was able to ambulate. 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 Isabela huang's Acute rehab then can FU for valvuloplasty eval) Pulmonary HTN (likely secondary, pulmonary medicine recs appreciated) PAF s/p PPM, on eliquis 2/2 elevated CHADSVASC2. Continue amio, BB. Hold dilt and would avoid negative contractility inducing agents in emergency situations. Mild memory deficits (Likely would need neuropsych eval to consent on her own with procedures, daughter is HCP, with memory issues that are worse than hers per daughter) Prolonged QTc (Continue to avoid agents, monitor Mg, K) HTN (stable; continue to monitor) HLD, continue on lipitor CKD (nephrology input noted; no new changes. Avoid nephrotoxins if possible, monitor for hypotension) Anxiety (Changed to remeron due to issues with sleep; will monitor but endorses continued improvement with sleep and appetite with no new mood disorders. Daughter indicates she is taking duloxetine at home and they will DC this drug to continue the mirtazapine.) GERD (Continue protonix) Hypokalemia (Repleted and rechecking; started on QD K-will reeval dose when diuretic changes occur) Full Code Continue to monitor on medicine service Continues to need tele due to marked electrolyte disturbance. Can consider DC in 24 hours with interval K improvement. DC planning with SW and CM. Daughter wishes to discuss acute rehab and is interested in [facility] Visit type - Emergency Visit Emergency Visit: Yes ED Registration Date: 02/05/19 Care time: The patient presented to the Emergency Department on the above date and was hospitalized for further evaluation of their emergent condition. - New Patient This patient is new to me today: No - Critical Care Critical Care patient: No
[2019-02-19] MEDS ORDERED: PT OWN MED DRAWER 7, Y5N ONE ×2 (09:28→14:04)
[2019-02-19] MEDS: AMIODARONE HCL 200 MG TABLET (FP) PO SCH ×2 (09:31→21:02)
[2019-02-19] MEDS: MEMANTINE HCL 10 MG TABLET (FP) PO SCH ×2 (09:31→21:02)
[2019-02-19] MEDS: PANTOPRAZOLE 40 MG TABLET (FP) PO SCH (09:31)
[2019-02-19] MEDS: metoPROLOL SUCCINATE 25 MG TAB.SR.24H (FP) PO SCH ×2 (09:31→21:02)
[2019-02-19] MEDS: FERROUS SO4 325 MG TABLET (FP) PO SCH ×2 (09:31→21:02)
[2019-02-19] MEDS: APIXABAN 2.5 MG TABLET PO SCH ×2 (09:31→21:02)
[2019-02-19] MEDS: DONEPEZIL HCL 10 MG TABLET (FP) PO SCH (09:32)
[2019-02-19] MEDS: CYANOCOBALAMIN 1,000 MCG TABLET (FP) PO SCH (09:32)
[2019-02-19] MEDS: NYSTATIN POWDER 100,000 UNITS/GM - 15 GM TOPICAL POWDER TP SCH ×2 (09:32→21:02)
[2019-02-19] MEDS: KCL 10 MEQ IVPB 10 MEQ/100 ML INFUS.BAG IVPB SCH ×2 (09:32→12:32)
[2019-02-19] MEDS ORDERED: LIDOCAINE 5% TOPICAL PATCH TP ONE (12:00)
--- NOTE | 2019-02-19 12:45 | PN ---
Progress Note (short form) - Note Progress Note: Reports breathing feels overall better. Still with some NICOLE. No CP. Intake & Output 02/16/19 02/17/19 02/18/19 02/19/19 23:59 23:59 23:59 23:59 Intake Total 222 688 0971 600 Balance 785 001 1237 600 Weight 131 lb 9.6 oz 126 lb 15.992 oz 127 lb 3.2 oz 126 lb 1.28 oz Last Vital Signs Temp Pulse Resp BP Pulse Ox 98 F 72 18 118/69 100 02/19/19 06:00 02/19/19 06:00 02/19/19 06:00 02/19/19 06:00 02/18/19 21:00 Active Medications Albuterol Sulfate (Ventolin 0.083% Nebulizer Soln -) 1 amp NEB Q4H PRN PRN Reason: SHORT OF BREATH/WHEEZING Amiodarone HCl (Cordarone -) 200 mg PO BID [facility] Last Admin: 02/19/19 09:31 Dose: 200 mg Apixaban (Eliquis -) 2.5 mg PO BID [facility] Last Admin: 02/19/19 09:31 Dose: 2.5 mg Atorvastatin Calcium (Lipitor -) 10 mg PO HS [facility] Last Admin: 02/18/19 22:36 Dose: 10 mg Cyanocobalamin (Vitamin B12 -) 2,000 mcg PO DAILY [facility] Last Admin: 02/19/19 09:32 Dose: 2,000 mcg Donepezil HCl (Aricept -) 10 mg PO DAILY [facility] Last Admin: 02/19/19 09:32 Dose: 10 mg Ferrous Sulfate (Feosol -) 325 mg PO BID [facility] Last Admin: 02/19/19 09:31 Dose: 325 mg Furosemide (Lasix Injection -) 80 mg IVPB BID@0600,1400 [facility] Last Admin: 02/19/19 06:27 Dose: 80 mg Memantine (Namenda -) 10 mg PO BID [facility] Last Admin: 02/19/19 09:31 Dose: 10 mg Metoprolol Succinate (Toprol Xl -) 25 mg PO BID [facility] Last Admin: 02/19/19 09:31 Dose: 25 mg Metoprolol Tartrate (Lopressor Injection -) 5 mg IVPUSH Q4H PRN PRN Reason: HYPERTENSION Last Admin: 02/12/19 09:47 Dose: 5 mg Mirtazapine (Remeron -) 15 mg PO HS [facility] Last Admin: 02/18/19 22:36 Dose: 15 mg Miscellaneous (Lidoderm Patch Removal) 1 each MC DAILY@2200 [facility] Stop: 02/19/19 22:01 Nystatin (Nystop Powder -) 1 applic TP BID [facility] Last Admin: 02/19/19 09:32 Dose: 1 applic Pantoprazole Sodium (Protonix -) 40 mg PO DAILY [facility] Last Admin: 02/19/19 09:31 Dose: 40 mg Potassium Chloride (K-Dur -) 40 meq PO DAILY [facility] Gen: awake, alert, NAD at rest HEENT: NC/AT,DIMAS, sclera anicteric, MMM Neck: No JVD LUNGS: Improving bibasilar rales, no wheeze CARD: RRR S1 and S2 normal. 3/6 systolic murmur ABD: Soft, NT/ND normoactive BS, no guarding EXT: No edema noted Laboratory Results - last 24 hr 02/19/19 05:30 Sodium 143 Potassium 2.9 L* Chloride 104 Carbon Dioxide 30 Anion Gap 9 BUN 13.5 Creatinine 0.6 Est GFR (CKD-EPI)AfAm 97.69 Est GFR (CKD-EPI)NonAf 84.29 Random Glucose 104 Calcium 9.0 Magnesium 2.0 Problem List - Problems (1) Pulmonary HTN Code(s): I27.20 - PULMONARY HYPERTENSION, UNSPECIFIED (2) Weakness Code(s): R53.1 - WEAKNESS (3) Atrial fibrillation Code(s): I48.91 - UNSPECIFIED ATRIAL FIBRILLATION Qualifiers: Atrial fibrillation type: paroxysmal Qualified Code(s): I48.0 - Paroxysmal atrial fibrillation (4) HTN (hypertension) Code(s): I10 - ESSENTIAL (PRIMARY) HYPERTENSION (5) Mitral valve regurgitation Code(s): I34.0 - NONRHEUMATIC MITRAL (VALVE) INSUFFICIENCY (6) Pacemaker ECG pattern Code(s): Z95.0 - PRESENCE OF CARDIAC PACEMAKER IMP: SEVERE PULMONARY HTN LIKELY DUE TO VALVULAR HD(SEVERE MR) CPS/BILATRERAL PL EFFUSIONS ON PREVIOUS CT NO CONTRAST ASHD AFIB S/P AV TEJA ABLATION ,S/P PPM HTN DEMENTIA PREVIOUS + TROPONINS PLAN CONTINUE AC SUPPLEMENTAL O2 RATE CONTROL PER CARDIOLOGY LASIX NO PULMONARY CONTRAINDICATION FOR DC PLANNING Dr Stubbs
--- NOTE | 2019-02-19 13:16 | PN ---
Progress Note (short form) - Note Progress Note: s: no chest pain, palps, dyspnea, dizziness. Current Medications Albuterol Sulfate (Ventolin 0.083% Nebulizer Soln -) 1 amp NEB Q4H PRN PRN Reason: SHORT OF BREATH/WHEEZING Amiodarone HCl (Cordarone -) 200 mg PO BID [facility] Last Admin: 02/19/19 09:31 Dose: 200 mg Apixaban (Eliquis -) 2.5 mg PO BID [facility] Last Admin: 02/19/19 09:31 Dose: 2.5 mg Atorvastatin Calcium (Lipitor -) 10 mg PO HS [facility] Last Admin: 02/18/19 22:36 Dose: 10 mg Cyanocobalamin (Vitamin B12 -) 2,000 mcg PO DAILY [facility] Last Admin: 02/19/19 09:32 Dose: 2,000 mcg Donepezil HCl (Aricept -) 10 mg PO DAILY [facility] Last Admin: 02/19/19 09:32 Dose: 10 mg Ferrous Sulfate (Feosol -) 325 mg PO BID [facility] Last Admin: 02/19/19 09:31 Dose: 325 mg Furosemide (Lasix Injection -) 80 mg IVPB BID@0600,1400 [facility] Last Admin: 02/19/19 06:27 Dose: 80 mg Memantine (Namenda -) 10 mg PO BID [facility] Last Admin: 02/19/19 09:31 Dose: 10 mg Metoprolol Succinate (Toprol Xl -) 25 mg PO BID [facility] Last Admin: 02/19/19 09:31 Dose: 25 mg Metoprolol Tartrate (Lopressor Injection -) 5 mg IVPUSH Q4H PRN PRN Reason: HYPERTENSION Last Admin: 02/12/19 09:47 Dose: 5 mg Mirtazapine (Remeron -) 15 mg PO HS [facility] Last Admin: 02/18/19 22:36 Dose: 15 mg Miscellaneous (Lidoderm Patch Removal) 1 each MC DAILY@2200 [facility] Stop: 02/19/19 22:01 Nystatin (Nystop Powder -) 1 applic TP BID [facility] Last Admin: 02/19/19 09:32 Dose: 1 applic Pantoprazole Sodium (Protonix -) 40 mg PO DAILY [facility] Last Admin: 02/19/19 09:31 Dose: 40 mg Potassium Chloride (K-Dur -) 40 meq PO DAILY [facility] Vital Signs Period Temp Pulse Resp BP Sys/Rice Pulse Ox Last 24 Hr 97.6 F-98.2 F 62-74 18-20 97-121/51-69 100-100 Constitutional: Yes: No Distress, Calm Eyes: Yes: Conjunctiva Clear Cardiovascular: Yes: Regular Rate and Rhythm Respiratory: Yes: Other (decreased at bases b/l) Gastrointestinal: Yes: Soft (NT) Edema: No Neurological: Yes: Alert, Oriented no jaundice, diaphoresis not agitated Assessment/Plan tele: sinus, occ vp delivery 83 year old woman pmh PAF, prior AV node ablation and 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 Yariel Morfin), here with sob, orthopnea. Acute diastolic chf, severe MR: -Weight down and mild clinical improvement with IV Lasix 80mg IV BID and switch to Amio -CT here 02/10 with [id number] effusions increased in size vs 01/26 -incr pulm congestion s/p CTA contrast load--lasix increased to 60 iv bid on 02/12 and then 80 mg IV BID on 02/13, also cardizem changed to amiodarone with improved BPs (had episodes of hypotension with diuresis) - stable CXR 02/19 - wt down, BUN/Cr improving, dyspnea improving. 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
--- NOTE | 2019-02-19 14:58 | PN ---
Progress Note (short form) - Note Progress Note: 1. CKD with acute component 2. chf 3. mitral regurg 4. dementia 5. a-fib 6. hld 7. hypokalemia 8. solitary right kidney clinically improving Current Medications Albuterol Sulfate (Ventolin 0.083% Nebulizer Soln -) 1 amp NEB Q4H PRN PRN Reason: SHORT OF BREATH/WHEEZING Amiodarone HCl (Cordarone -) 200 mg PO BID [facility] Last Admin: 02/19/19 09:31 Dose: 200 mg Apixaban (Eliquis -) 2.5 mg PO BID [facility] Last Admin: 02/19/19 09:31 Dose: 2.5 mg Atorvastatin Calcium (Lipitor -) 10 mg PO HS [facility] Last Admin: 02/18/19 22:36 Dose: 10 mg Cyanocobalamin (Vitamin B12 -) 2,000 mcg PO DAILY [facility] Last Admin: 02/19/19 09:32 Dose: 2,000 mcg Donepezil HCl (Aricept -) 10 mg PO DAILY [facility] Last Admin: 02/19/19 09:32 Dose: 10 mg Ferrous Sulfate (Feosol -) 325 mg PO BID [facility] Last Admin: 02/19/19 09:31 Dose: 325 mg Furosemide (Lasix Injection -) 80 mg IVPB BID@0600,1400 [facility] Last Admin: 02/19/19 14:04 Dose: 80 mg Memantine (Namenda -) 10 mg PO BID [facility] Last Admin: 02/19/19 09:31 Dose: 10 mg Metoprolol Succinate (Toprol Xl -) 25 mg PO BID [facility] Last Admin: 02/19/19 09:31 Dose: 25 mg Metoprolol Tartrate (Lopressor Injection -) 5 mg IVPUSH Q4H PRN PRN Reason: HYPERTENSION Last Admin: 02/12/19 09:47 Dose: 5 mg Mirtazapine (Remeron -) 15 mg PO HS [facility] Last Admin: 02/18/19 22:36 Dose: 15 mg Miscellaneous (Lidoderm Patch Removal) 1 each MC DAILY@2200 [facility] Stop: 02/19/19 22:01 Nystatin (Nystop Powder -) 1 applic TP BID [facility] Last Admin: 02/19/19 09:32 Dose: 1 applic Pantoprazole Sodium (Protonix -) 40 mg PO DAILY [facility] Last Admin: 02/19/19 09:31 Dose: 40 mg Potassium Chloride (K-Dur -) 40 meq PO DAILY [facility] Last Vital Signs Temp Pulse Resp BP Pulse Ox 97.6 F 62 18 114/68 100 02/19/19 10:00 02/19/19 10:00 02/19/19 10:00 02/19/19 10:00 02/19/19 09:00 CBC, BMP 02/17/19 06:15 02/19/19 05:30 CBC, BMP 02/17/19 06:15 02/18/19 05:45 IMP- Hypokalemia getting replacments Plan- continue k replacement consider changing lasix to prn for resp symptoms
[2019-02-19 17:37] LABS: CALCIUM 8.3 mg/dL (8.5-10.1); CREATININE 1.2 mg/dL (0.55-1.3); POTASSIUM 4.2 mmol/L (3.5-5.1)
[2019-02-19] MEDS: ATORVASTATIN CA 10 MG TABLET (FP) PO SCH (21:02)
[2019-02-19] MEDS: MIRTAZAPINE 15 MG TABLET (FP) PO SCH (21:02)
[2019-02-19] MEDS ORDERED: LIDOCAINE PATCH REMOVAL MC SCH (22:00)
[2019-02-20] MEDS: FUROSEMIDE 100 MG/10 ML INJECTABLE VIAL IVPB SCH (06:05)
[2019-02-20 06:31] LABS: BASO % 0.5 % (0-2.0); EOS % 2.7 % (0-4.5); HEMATOCRIT 34.3 % (32.4-45.2); HEMOGLOBIN 11.1 GM/dL (10.7-15.3); LYMPH % 15.4 % (8-40); MCH 30.4 pg (25.7-33.7); MCHC 32.2 g/dl (32.0-36.0); MEAN CELL VOLUME 94.2 fl (80-96); MEAN PLT VOLUME 9.6 fl (7.5-11.1); MONO % 11.6 % (3.8-10.2); NEUT % 69.8 % (42.8-82.8); PLATELET COUNT 220 K/MM3 (134-434); RBC 3.64 M/mm3 (3.60-5.2); WHITE BLOOD COUNT 9.5 K/mm3 (4.0-10.0)
[2019-02-20 06:53] LABS: BLOOD UREA NITROGEN 27.8 mg/dL (7-18); CALCIUM 8.2 mg/dL (8.5-10.1); CREATININE 1.1 mg/dL (0.55-1.3); MAGNESIUM 1.6 mg/dL (1.8-2.4); POTASSIUM 3.3 mmol/L (3.5-5.1)
[2019-02-20] MEDS ORDERED: PT OWN MED DRAWER 7, Y5N ONE ×3 (09:06→10:24)
[2019-02-20] MEDS ORDERED: POTASSIUM CHLORIDE TABS 20 MEQ TABLET.ER (FP) PO ONE (09:08)
[2019-02-20] MEDS ORDERED: MAGNESIUM 4GM/H20 - 4 GM/100 ML IVPB IVPB ONE (09:08)
[2019-02-20] MEDS: AMIODARONE HCL 200 MG TABLET (FP) PO SCH (09:18)
[2019-02-20] MEDS: CYANOCOBALAMIN 1,000 MCG TABLET (FP) PO SCH (09:18)
[2019-02-20] MEDS: PANTOPRAZOLE 40 MG TABLET (FP) PO SCH (09:19)
[2019-02-20] MEDS: MEMANTINE HCL 10 MG TABLET (FP) PO SCH (09:19)
[2019-02-20] MEDS: APIXABAN 2.5 MG TABLET PO SCH (09:19)
[2019-02-20] MEDS: DONEPEZIL HCL 10 MG TABLET (FP) PO SCH (09:20)
[2019-02-20] MEDS: FERROUS SO4 325 MG TABLET (FP) PO SCH (09:20)
[2019-02-20] MEDS: metoPROLOL SUCCINATE 25 MG TAB.SR.24H (FP) PO SCH (09:20)
[2019-02-20] MEDS ORDERED: POTASSIUM CHLORIDE TABS 20 MEQ TABLET.ER (FP) PO SCH (10:00)
[2019-02-20] MEDS ORDERED: MAGNESIUM OXIDE 400 MG TABLET (FP) PO SCH (10:00)
[2019-02-20] MEDS: NYSTATIN POWDER 100,000 UNITS/GM - 15 GM TOPICAL POWDER TP SCH (11:19)
--- NOTE | 2019-02-20 11:20 | PN ---
Progress Note (short form) - Note Progress Note: s: no sob, chest pain, palps, dizziness. Vital Signs Period Temp Pulse Resp BP Sys/Rice Pulse Ox Last 24 Hr 97.8 F-98.9 F 64-76 18-18 97-118/49-67 98 Constitutional: Yes: No Distress, Calm Eyes: No: Sclera Icterus HENT: No: Nasal Congestion Cardiovascular: Yes: Regular Rate and Rhythm, JVD, Murmur (loud MR murmur), S1, S2, Other (PMI non diplaced). No: Gallop Respiratory: Yes: CTA Bilaterally. No: Accessory Muscle Use, Rales, Wheezes Gastrointestinal: Yes: Normal Bowel Sounds, Soft. No: Tenderness Extremities: No: Cold, Cyanosis Edema: No Integumentary: No: Jaundice Neurological: Yes: Alert, Oriented (x3) Psychiatric: No: Agitated Current Medications Generic Name Dose Route Start Last Admin Trade Name Freq PRN Reason Stop Dose Admin Albuterol Sulfate 1 amp 02/18/19 13:23 Ventolin 0.083% Nebulizer Soln - NEB Q4H PRN SHORT OF BREATH/WHEEZING Amiodarone HCl 200 mg 02/13/19 11:00 02/20/19 09:18 Cordarone - PO 200 mg BID [facility] Administration Apixaban 2.5 mg 02/05/19 22:00 02/20/19 09:19 Eliquis - PO 2.5 mg BID [facility] Administration Atorvastatin Calcium 10 mg 02/05/19 22:00 02/19/19 21:02 Lipitor - PO 10 mg HS [facility] Administration Cyanocobalamin 2,000 mcg 02/08/19 10:04 02/20/19 09:18 Vitamin B12 - PO 2,000 mcg DAILY [facility] Administration Donepezil HCl 10 mg 02/06/19 10:00 02/20/19 09:20 Aricept - PO 10 mg DAILY [facility] Administration Ferrous Sulfate 325 mg 02/05/19 22:00 02/20/19 09:20 Feosol - PO 325 mg BID [facility] Administration Furosemide 80 mg 02/20/19 14:00 Lasix - PO BID@0600,1400 [facility] Magnesium Oxide 400 mg 02/20/19 10:00 02/20/19 10:46 Mag-Ox - PO 400 mg BID [facility] Administration Memantine 10 mg 02/05/19 22:00 10/14/19 09:19 Namenda - PO 10 mg BID [facility] Administration Metoprolol Succinate 25 mg 02/12/19 10:00 02/20/19 09:20 Toprol Xl - PO 25 mg BID [facility] Administration Metoprolol Tartrate 5 mg 02/12/19 09:33 02/12/19 09:47 Lopressor Injection - IVPUSH 5 mg Q4H PRN Administration HYPERTENSION Mirtazapine 15 mg 02/15/19 22:00 02/19/19 21:02 Remeron - PO 15 mg HS [facility] Administration Nystatin 1 applic 02/16/19 11:30 02/19/19 21:02 Nystop Powder - TP 1 applic BID [facility] Administration Pantoprazole Sodium 40 mg 02/06/19 10:00 02/20/19 09:19 Protonix - PO 40 mg DAILY [facility] Administration Potassium Chloride 40 meq 02/20/19 10:00 02/20/19 09:19 K-Dur - PO 40 meq DAILY [facility] Administration CBC, BMP 02/20/19 05:31 02/20/19 05:31 tele: sinus, 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 Yariel Morfin), here with sob, orthopnea. Acute diastolic chf, severe MR: -Weight down and mild clinical improvement with IV Lasix 80mg IV BID and switch to Amio -CT here 02/10 with [id number] effusions increased in size vs 01/26 -incr pulm congestion s/p CTA contrast load--lasix increased to 60 iv bid on 02/12 and then 80 mg IV BID on 02/13, also cardizem changed to amiodarone with improved BPs (had episodes of hypotension with diuresis) - 02/20: cxr clear now and vol status seems at baseline. will change to po lasix and monitor. 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
--- NOTE | 2019-02-20 11:22 | PN ---
Progress Note, Physician History of Present Illness: pulmonary alert,slowly improving,less dyspneic - Current Medication List Current Medications: Active Medications Albuterol Sulfate (Ventolin 0.083% Nebulizer Soln -) 1 amp NEB Q4H PRN PRN Reason: SHORT OF BREATH/WHEEZING Amiodarone HCl (Cordarone -) 200 mg PO BID [facility] Last Admin: 02/20/19 09:18 Dose: 200 mg Apixaban (Eliquis -) 2.5 mg PO BID [facility] Last Admin: 02/20/19 09:19 Dose: 2.5 mg Atorvastatin Calcium (Lipitor -) 10 mg PO HS [facility] Last Admin: 02/19/19 21:02 Dose: 10 mg Cyanocobalamin (Vitamin B12 -) 2,000 mcg PO DAILY [facility] Last Admin: 02/20/19 09:18 Dose: 2,000 mcg Donepezil HCl (Aricept -) 10 mg PO DAILY [facility] Last Admin: 02/20/19 09:20 Dose: 10 mg Ferrous Sulfate (Feosol -) 325 mg PO BID [facility] Last Admin: 02/20/19 09:20 Dose: 325 mg Furosemide (Lasix -) 80 mg PO BID@0600,1400 [facility] Magnesium Oxide (Mag-Ox -) 400 mg PO BID [facility] Last Admin: 02/20/19 10:46 Dose: 400 mg Memantine (Namenda -) 10 mg PO BID [facility] Last Admin: 02/20/19 09:19 Dose: 10 mg Metoprolol Succinate (Toprol Xl -) 25 mg PO BID [facility] Last Admin: 02/20/19 09:20 Dose: 25 mg Metoprolol Tartrate (Lopressor Injection -) 5 mg IVPUSH Q4H PRN PRN Reason: HYPERTENSION Last Admin: 02/12/19 09:47 Dose: 5 mg Mirtazapine (Remeron -) 15 mg PO HS [facility] Last Admin: 02/19/19 21:02 Dose: 15 mg Nystatin (Nystop Powder -) 1 applic TP BID [facility] Last Admin: 02/20/19 11:19 Dose: 1 applic Pantoprazole Sodium (Protonix -) 40 mg PO DAILY [facility] Last Admin: 02/20/19 09:19 Dose: 40 mg Potassium Chloride (K-Dur -) 40 meq PO DAILY [facility] Last Admin: 02/20/19 09:19 Dose: 40 meq - Objective Vital Signs: Vital Signs Temperature 98.1 F 02/20/19 06:00 Pulse Rate 73 02/20/19 06:00 Respiratory Rate 18 02/20/19 06:00 Blood Pressure 106/67 02/20/19 06:00 O2 Sat by Pulse Oximetry (%) 98 02/19/19 21:00 Constitutional: Yes: Well Nourished, Calm Eyes: Yes: WNL HENT: Yes: WNL Neck: Yes: WNL Cardiovascular: Yes: Regular Rate and Rhythm, S1, S2 Respiratory: Yes: Diminished Gastrointestinal: Yes: Normal Bowel Sounds, Soft Extremities: Yes: WNL Edema: No Labs: CBC, BMP 02/20/19 05:31 02/20/19 05:31 - ....Imaging Chest X-ray: Report Reviewed, Image Reviewed Assessment/Plan Problem List - Problems (1) Pulmonary HTN Code(s): I27.20 - PULMONARY HYPERTENSION, UNSPECIFIED (2) Weakness Code(s): R53.1 - WEAKNESS (3) Atrial fibrillation Code(s): I48.91 - UNSPECIFIED ATRIAL FIBRILLATION Qualifiers: Atrial fibrillation type: paroxysmal Qualified Code(s): I48.0 - Paroxysmal atrial fibrillation (4) HTN (hypertension) Code(s): I10 - ESSENTIAL (PRIMARY) HYPERTENSION (5) Mitral valve regurgitation Code(s): I34.0 - NONRHEUMATIC MITRAL (VALVE) INSUFFICIENCY (6) Pacemaker ECG pattern Code(s): Z95.0 - PRESENCE OF CARDIAC PACEMAKER IMP: SEVERE PULMONARY HTN LIKELY DUE TO VALVULAR HD(SEVERE MR) CPS/BILATERAL PL EFFUSIONS ASHD AFIB S/P AV TEJA ABLATION ,S/P PPM CURRENTLY IN NSR HTN DEMENTIA PREVIOUS + TROPONINS PLAN CONTINUE AC SUPPLEMENTAL O2 RATE CONTROL PER CARDIOLOGY LASIX PLAN PER CARDIO DR CHRISTENSEN
--- NOTE | 2019-02-20 12:03 | PN ---
Progress Note, Physician History of Present Illness: Pt seen and examined at bedside. She is able to ambulate up and down the hallway with a walker and assistance while using oxygen. She denies shortness of breath. - Current Medication List Current Medications: Active Medications Albuterol Sulfate (Ventolin 0.083% Nebulizer Soln -) 1 amp NEB Q4H PRN PRN Reason: SHORT OF BREATH/WHEEZING Amiodarone HCl (Cordarone -) 200 mg PO BID [facility] Last Admin: 02/20/19 09:18 Dose: 200 mg Apixaban (Eliquis -) 2.5 mg PO BID [facility] Last Admin: 02/20/19 09:19 Dose: 2.5 mg Atorvastatin Calcium (Lipitor -) 10 mg PO HS [facility] Last Admin: 02/19/19 21:02 Dose: 10 mg Cyanocobalamin (Vitamin B12 -) 2,000 mcg PO DAILY [facility] Last Admin: 02/20/19 09:18 Dose: 2,000 mcg Donepezil HCl (Aricept -) 10 mg PO DAILY [facility] Last Admin: 02/20/19 09:20 Dose: 10 mg Ferrous Sulfate (Feosol -) 325 mg PO BID [facility] Last Admin: 02/20/19 09:20 Dose: 325 mg Furosemide (Lasix -) 80 mg PO BID@0600,1400 [facility] Magnesium Oxide (Mag-Ox -) 400 mg PO BID [facility] Last Admin: 02/20/19 10:46 Dose: 400 mg Memantine (Namenda -) 10 mg PO BID [facility] Last Admin: 02/20/19 09:19 Dose: 10 mg Metoprolol Succinate (Toprol Xl -) 25 mg PO BID [facility] Last Admin: 02/20/19 09:20 Dose: 25 mg Metoprolol Tartrate (Lopressor Injection -) 5 mg IVPUSH Q4H PRN PRN Reason: HYPERTENSION Last Admin: 02/12/19 09:47 Dose: 5 mg Mirtazapine (Remeron -) 15 mg PO [facility] Last Admin: 02/19/19 21:02 Dose: 15 mg Nystatin (Nystop Powder -) 1 applic TP BID [facility] Last Admin: 02/20/19 11:19 Dose: 1 applic Pantoprazole Sodium (Protonix -) 40 mg PO DAILY [facility] Last Admin: 02/20/19 09:19 Dose: 40 mg Potassium Chloride (K-Dur -) 40 meq PO DAILY [facility] Last Admin: 02/20/19 09:19 Dose: 40 meq - Objective Vital Signs: Vital Signs Temperature 98.1 F 02/20/19 06:00 Pulse Rate 73 02/20/19 06:00 Respiratory Rate 18 02/20/19 06:00 Blood Pressure 106/67 02/20/19 06:00 O2 Sat by Pulse Oximetry (%) 98 02/19/19 21:00 Constitutional: Yes: Calm Eyes: Yes: Conjunctiva Clear HENT: Yes: Atraumatic Neck: Yes: Supple Cardiovascular: Yes: S1, S2 Respiratory: Yes: CTA Bilaterally, On Nasal O2 Gastrointestinal: Yes: Normal Bowel Sounds, Soft Genitourinary: Yes: WNL Musculoskeletal: Yes: WNL Edema: No Neurological: Yes: Oriented Labs: CBC, BMP 02/20/19 05:31 02/20/19 05:31 Problem List - Problems (1) Azotemia Code(s): R79.89 - OTHER SPECIFIED ABNORMAL FINDINGS OF BLOOD CHEMISTRY (2) Shortness of breath Code(s): R06.02 - SHORTNESS OF BREATH (3) Malaise Code(s): R53.81 - OTHER MALAISE (4) Weakness Code(s): R53.1 - WEAKNESS Assessment/Plan Current Medications Generic Name Dose Route Start Last Admin Trade Name Freq PRN Reason Stop Dose Admin Albuterol Sulfate 1 amp 02/18/19 13:23 Ventolin 0.083% Nebulizer Soln - NEB Q4H PRN SHORT OF BREATH/WHEEZING Amiodarone HCl 200 mg 02/13/19 11:00 02/20/19 09:18 Cordarone - PO 200 mg BID [facility] Administration Apixaban 2.5 mg 02/05/19 22:00 02/20/19 09:19 Eliquis - PO 2.5 mg BID [facility] Administration Atorvastatin Calcium 10 mg 02/05/19 22:00 02/19/19 21:02 Lipitor - PO 10 mg HS [facility] Administration Cyanocobalamin 2,000 mcg 02/08/19 10:04 02/20/19 09:18 Vitamin B12 - PO 2,000 mcg DAILY [facility] Administration Donepezil HCl 10 mg 02/06/19 10:00 02/20/19 09:20 Aricept - PO 10 mg DAILY [facility] Administration Ferrous Sulfate 325 mg 02/05/19 22:00 02/20/19 09:20 Feosol - PO 325 mg BID [facility] Administration Furosemide 80 mg 02/20/19 14:00 Lasix - PO BID@0600,1400 [facility] Magnesium Oxide 400 mg 02/20/19 10:00 02/20/19 10:46 Mag-Ox - PO 400 mg BID [facility] Administration Memantine 10 mg 02/05/19 22:00 02/20/19 09:19 Namenda - PO 10 mg BID [facility] Administration Metoprolol Succinate 25 mg 02/12/19 10:00 02/20/19 09:20 Toprol Xl - PO 25 mg BID [facility] Administration Metoprolol Tartrate 5 mg 02/12/19 09:33 02/12/19 09:47 Lopressor Injection - IVPUSH 5 mg Q4H PRN Administration HYPERTENSION Mirtazapine 15 mg 02/15/19 22:00 02/19/19 21:02 Remeron - PO 15 mg HS [facility] Administration Nystatin 1 applic 02/16/19 11:30 02/20/19 11:19 Nystop Powder - TP 1 applic BID [facility] Administration Pantoprazole Sodium 40 mg 02/06/19 10:00 02/20/19 09:19 Protonix - PO 40 mg DAILY [facility] Administration Potassium Chloride 40 meq 02/20/19 10:00 02/20/19 09:19 K-Dur - PO 40 meq DAILY [facility] Administration Impression 1. CKD with acute component 2. chf 3. mitral regurg 4. dementia 5. a-fib 6. hld 7. hypokalemia 8. solitary right kidney Plan - replace potassium - replace mag - renal function is stable - cont diuretics - cardio follow up - ua negative for blood or protein - avoid nephrotoxins and nsaids - case discussed with family
[2019-02-20] MEDS ORDERED: FUROSEMIDE 40 MG TABLET (FP) PO SCH (14:00)
--- NOTE | 2019-02-20 16:50 | DS ---
Physical Exam: SUBJECTIVE: Patient seen and examined OBJECTIVE: Vital Signs Period Temp Pulse Resp BP Sys/Rice Pulse Ox Last 24 Hr 97.5 F-98.9 F 64-76 16-18 97-118/49-69 98-98 PHYSICAL EXAM GENERAL: The patient is awake, alert, and fully oriented, in no acute distress. HEAD: Normal with no signs of trauma. EYES: PERRL, extraocular movements intact, sclera anicteric, conjunctiva clear. ENT: Ears normal, nares patent, oropharynx clear without exudates, moist mucous membranes. NECK: Trachea midline, full range of motion, supple. LUNGS: Breath sounds equal, clear to auscultation bilaterally, no wheezes, no crackles, no accessory muscle use. HEART: Regular rate and rhythm, S1, S2 without murmur, rub or gallop. ABDOMEN: Soft, nontender, nondistended, normoactive bowel sounds, no guarding, no rebound, no hepatosplenomegaly, no masses. EXTREMITIES: 2+ pulses, warm, well-perfused, no edema. NEUROLOGICAL: Cranial nerves II through XII grossly intact. Normal speech, gait not observed. PSYCH: Normal mood, normal affect. SKIN: Warm, dry, normal turgor, no rashes or lesions noted. LABS Laboratory Results - last 24 hr 02/19/19 02/20/19 02/20/19 16:07 05:31 05:31 WBC 9.5 RBC 3.64 Hgb 11.1 Hct 34.3 MCV 94.2 MCH 30.4 MCHC 32.2 RDW 15.0 Plt Count 220 MPV 9.6 Absolute Neuts (auto) 6.7 Neutrophils % 69.8 Lymphocytes % 15.4 D Monocytes % 11.6 H Eosinophils % 2.7 D Basophils % 0.5 Nucleated RBC % 0 Sodium 138 139 Potassium 4.2 3.3 L Chloride 98 99 Carbon Dioxide 33 H 34 H Anion Gap 7 L 6 L BUN 30.0 H 27.8 H Creatinine 1.2 1.1 Est GFR (CKD-EPI)AfAm 48.40 53.77 Est GFR (CKD-EPI)NonAf 41.76 46.39 Random Glucose 85 82 Calcium 8.3 L 8.2 L Magnesium 1.6 L HOSPITAL COURSE: Date of Admission:02/05/19 Date of Discharge: 10/14/19 Discharge Summary Problems reviewed: Yes Reason For Visit: ACUTE ON CHRONIC CONGESTIVE HEART FAILURE Current Active Problems Azotemia (Acute) Shortness of breath (Acute) Condition: Stable - Instructions Diet, Activity, Other Instructions: You were hospitalized for acute CHF secondary to a valve problem and you are being discharged to [facility]. Instructions for Rehab Monitoring: -BMP + Mg Q3D -Ensure adequate PO intake -Daily weights -Input and output monitoring -Any attempts to wean from O2 and subsequent results Followup instructions: -Primary Crusher And Blender Operator (Dr. Cam): Within 2-3 days of rehab DC -PCP: Within 2-3 days of rehab DC Medication list: Albuterol Sulfate (Ventolin 0.083% Nebulizer Soln -) 1 amp NEB Q4H PRN PRN Reason: SHORT OF BREATH/WHEEZING Amiodarone HCl (Cordarone -) 200 mg PO BID [facility] Last Admin: 02/20/19 09:18 Dose: 200 mg Apixaban (Eliquis -) 2.5 mg PO BID [facility] Last Admin: 02/20/19 09:19 Dose: 2.5 mg Atorvastatin Calcium (Lipitor -) 10 mg PO HS [facility] Last Admin: 02/19/19 21:02 Dose: 10 mg Cyanocobalamin (Vitamin B12 -) 2,000 mcg PO DAILY [facility] Last Admin: 02/20/19 09:18 Dose: 2,000 mcg Donepezil HCl (Aricept -) 10 mg PO DAILY [facility] Last Admin: 02/20/19 09:20 Dose: 10 mg Ferrous Sulfate (Feosol -) 325 mg PO BID [facility] Last Admin: 02/20/19 09:20 Dose: 325 mg Furosemide (Lasix -) 80 mg PO BID@0600,1400 [facility] Magnesium Oxide (Mag-Ox -) 400 mg PO BID [facility] Last Admin: 02/20/19 10:46 Dose: 400 mg Memantine (Namenda -) 10 mg PO BID [facility] Last Admin: 02/20/19 09:19 Dose: 10 mg Metoprolol Succinate (Toprol Xl -) 25 mg PO BID [facility] Last Admin: 02/20/19 09:20 Dose: 25 mg Metoprolol Tartrate (Lopressor Injection -) 5 mg IVPUSH Q4H PRN PRN Reason: HYPERTENSION Last Admin: 02/12/19 09:47 Dose: 5 mg Mirtazapine (Remeron -) 15 mg PO HS [facility] Last Admin: 02/19/19 21:02 Dose: 15 mg Nystatin (Nystop Powder -) 1 applic TP BID [facility] Last Admin: 02/20/19 11:19 Dose: 1 applic Pantoprazole Sodium (Protonix -) 40 mg PO DAILY [facility] Last Admin: 02/20/19 09:19 Dose: 40 mg Potassium Chloride (K-Dur -) 40 meq PO DAILY [facility] Last Admin: 02/20/19 09:19 Dose: 40 meq STOP TAKING: -Any home antidepressants (celexa, etc.) -Diltiazem Diet: Low salt, fluid restricted 2L daily Activity: As prescribed by experts at inpatient rehabilitation facility Referrals: Private Cardiology Provider, Dr. Mar [Other] (2-3 days of rehab DC) Shmuel Blunt MD [Staff Physician] - Edward Jurado MD [Staff Physician] - (2-3 days rehab DC) Disposition: [facility] - Home Medications Comprehensive Discharge Medication List: Ambulatory Orders Sucralfate [Carafate -] 1 gm PO TID 06/12/18 Apixaban [Eliquis] 2.5 mg PO BID 10/30/18 Atorvastatin Ca [Lipitor] 10 mg PO HS 10/30/18 Donepezil HCl 10 mg PO DAILY 10/30/18 Memantine HCl 10 mg PO BID 10/30/18 Cyanocobalamin (Vitamin B-12) [Vitamin B12] 5,000 mcg PO DAILY 01/27/19 Albuterol 0.083% Nebulizer Nevin [Ventolin 0.083% Nebulizer Soln -] 1 amp NEB Q4H PRN amp 02/20/19 Amiodarone HCl [Cordarone -] 200 mg PO BID tablet 02/20/19 Ferrous Sulfate [Feosol] 325 mg PO BID ud 02/20/19 Furosemide [Lasix -] 80 mg PO BID@0600,1400 tablet 02/20/19 Magnesium Oxide [Mag-Ox -] 400 mg PO BID tablet 02/20/19 Metoprolol Succinate [Toprol XL -] 25 mg PO BID tab.sr.24h 02/20/19 Mirtazapine [Remeron -] 15 mg PO HS tablet 02/20/19 Pantoprazole Sodium [Protonix -] 40 mg PO DAILY tablet.ec 02/20/19 Potassium Chloride [K-Dur -] 40 meq PO DAILY tablet.er 02/20/19 - Discharge Referral Referred to [facility] No ATTENDING PHYSICIAN STATEMENT I saw and evaluated the patient. I reviewed the resident's note and discussed the case with the resident. I agree with the resident's findings and plan as documented. SUBJECTIVE: OBJECTIVE: ASSESSMENT AND PLAN:
[2019-02-20 18:10] VITALS: BP 105/50; PULSE 53; TEMP 97.6
== END 2019-02-20 18:50 | DRG 306 ==
LOC: JER 08:39 → JERBED 13:09 → J4S 14:37
PROVIDERS: ADMIT Hospitalist; ATTEND Internal Medicine
DX: I34.0 Nonrheumatic mitral (valve) insufficiency (principal); I50.33 Acute on chronic diastolic (congestive) heart failure; J96.00 Acute respiratory failure, unspecified whether with hypoxia or hypercapnia; N39.0 Urinary tract infection, site not specified; I47.1 Supraventricular tachycardia; I13.0 Hypertensive heart and chronic kidney disease with heart failure and stage 1 through stage 4 chronic kidney disease, or unspecified chronic kidney disease; I27.20 Pulmonary hypertension, unspecified; I48.0 Paroxysmal atrial fibrillation; F03.90 Unspecified dementia, unspecified severity, without behavioral disturbance, psychotic disturbance, mood disturbance, and anxiety; I25.10 Atherosclerotic heart disease of native coronary artery without angina pectoris; E78.5 Hyperlipidemia, unspecified; N18.9 Chronic kidney disease, unspecified; E87.6 Hypokalemia; Z95.0 Presence of cardiac pacemaker; E87.70 Fluid overload, unspecified; F41.9 Anxiety disorder, unspecified; R74.0 Nonspecific elevation of levels of transaminase and lactic acid dehydrogenase [LDH]; I36.1 Nonrheumatic tricuspid (valve) insufficiency
CPT/HCPCS: 36415; 71045-TC-FY; 71275-TC; 76775-TC; 80048; 80053; 81003; 83735; 83880; 84100; 84132; 84443; 84484; 85025; 85027; 87086; 93005; 93010; 94640; 97116-GP; 97162-GP; 99284-25; Q9967

== ENCOUNTER 2019-03-07 13:36 | Emergency (ER) | payer OTHER, BC ==
[2019-03-07 13:47] VITALS: TEMP 97.7; BMI 20.9
--- NOTE | 2019-03-07 14:38 | PDOC ---
History of Present Illness - General Chief Complaint: Shortness of Breath Stated Complaint: COUGH,WEAKNESS Time Seen by Provider: 03/07/19 14:15 History Source: Patient Exam Limitations: No Limitations - History of Present Illness Initial Comments: 03/07/19 14:38 83 year old female with pmhx of chf, dementia, htn, hld, ckd, a-fib, and mitral regurg who presents to the ER for shortness of breath. Past History - Past Medical History Allergies/Adverse Reactions: Allergies Allergy/AdvReac Type Severity Reaction Status Date / Time No Known Allergies Allergy Verified 02/05/19 09:46 Home Medications: Ambulatory Orders Amiodarone HCl [Cordarone -] 200 mg PO BID 03/07/19 Apixaban [Eliquis] 2.5 mg PO BID 03/07/19 Atorvastatin Ca [Lipitor] 10 mg PO HS 03/07/19 Cephalexin Monohydrate [Keflex -] 500 mg PO BID #14 capsule 03/07/19 Cyanocobalamin (Vitamin B-12) [Vitamin B-12] 2,000 mcg PO DAILY 03/07/19 Docusate Sodium [Colace] 100 mg PO TID 03/07/19 Donepezil HCl [Aricept] 10 mg PO DAILY 03/07/19 Furosemide [Lasix] 80 mg PO BID 03/07/19 Lorazepam [Ativan] 0.5 mg PO PRN PRN 03/07/19 Mag Hydrox/Al Hydrox/Simeth [Mylanta Oral Suspension -] 30 ml PO PRN PRN Magnesium Oxide 400 400 mg PO BID 03/07/19 Memantine HCl [Namenda -] 10 mg PO BID 03/07/19 Metoprolol Succinate [Toprol Xl] 25 mg PO DAILY 03/07/19 Mirtazapine [Remeron -] 15 mg PO HS 03/07/19 Pantoprazole Sodium [Protonix] 40 mg PO DAILY 03/07/19 Potassium Chloride [Klor-Con] 40 meq PO DAILY 03/07/19 RX: Ferrous Sulfate 325 mg PO DAILY 03/07/19 Sucralfate [Carafate -] 1 gm PO TID 03/07/19 Anemia: Yes Asthma: No Cardiac Disorders: Yes (A-fib, PACEMAKER) COPD: No CHF: Yes Dementia: Yes GI Disorders: Yes (INDIGESTION, HIATAL HERNIA) HTN: Yes Hypercholesterolemia: Yes - Surgical History Cardiac Surgery: Yes (AV NODE ABLATION,pacemaker: [employer]- model # L331 Atrial lead # 7) - Immunization History Td Vaccination: Yes Immunization Up to Date: (UNKNOWN) - Psycho Social/Smoking Cessation Hx Smoking Status: No Smoking History: Smoker current status UNK Have you smoked in the past 12 months: No Number of Cigarettes Smoked Daily: 0 If you are a former smoker, when did you quit?: 30 YEARS AGO Information on smoking cessation initiated: No Hx Alcohol Use: No Drug/Substance Use Hx: No Substance Use Type: None Hx Substance Use Treatment: No *Physical Exam - Vital Signs Last Vital Signs Temp Pulse Resp BP Pulse Ox 97.7 F 75 18 104/56 L 94 L 03/07/19 13:43 03/07/19 13:43 03/07/19 13:43 03/07/19 13:43 03/07/19 13:43 ED Treatment Course - LABORATORY CBC & Chemistry Diagram: 03/07/19 14:59 03/07/19 14:59 - RADIOLOGY Radiology Studies Ordered: Category Date Time Status CHEST PA & LAT [RAD] Stat Radiology 03/07/19 14:35 Ordered Discharge - Discharge Information Problems reviewed: Yes Clinical Impression/Diagnosis: Mitral valve regurgitation, Shortness of breath Disposition: HOME - Admission No - Additional Discharge Information Prescriptions: Cephalexin Monohydrate [Keflex -] 500 mg PO BID #14 capsule - Follow up/Referral Referrals: Guerrero Albert [Primary Care Provider] - - Patient Discharge Instructions Patient Printed Discharge Instructions: DI for Heart Failure Additional Instructions: You were seen in the emergency department for your shortness of breath. It is imperative for you to follow up with cardiology and your primary medical doctor within 1 week after discharge. Please return to the emergency department if you have worsening symptoms or new concerning symptoms. - Post Discharge Activity
[2019-03-07 15:02] LABS: EPI CELLS 1.8 /HPF (0-5/HPF); HYALINE CASTS 4 /lpf (0-8); PH,URINE 5.5 (5.0-8.0); URINE APPEARANCE CLEAR; URINE BACTERIA 180.1 /hpf (NEGATIVE); URINE BILIRUBIN NEGATIVE (NEGATIVE); URINE COLOR YELLOW; URINE GLUCOSE (UA) NEGATIVE (NEGATIVE); URINE KETONE NEGATIVE (NEGATIVE); URINE LEUK ESTERASE 3+ (NEGATIVE); URINE NITRITE NEGATIVE (NEGATIVE); URINE PROTEIN NEGATIVE (NEGATIVE); URINE RBC 9 /hpf (0-4); URINE UROBILINOGEN 0.2 mg/dL (0.2-1.0); URINE WBC 23 /hpf (0-5)
--- NOTE | 2019-03-07 15:11 | EKG ---
Test Reason : Blood Pressure : / mmHG Vent. Rate : 068 BPM Atrial Rate : 068 BPM P-R Int : 160 ms QRS Dur : 100 ms QT Int : 484 ms P-R-T Axes : 061 023 005 degrees QTc Int : 514 ms NORMAL SINUS RHYTHM POSSIBLE LEFT ATRIAL ENLARGEMENT PROLONGED QT ABNORMAL ECG WHEN COMPARED WITH ECG OF 18-FEB-2019 10:18, PREMATURE VENTRICULAR COMPLEXES ARE NO LONGER PRESENT T WAVE INVERSION LESS EVIDENT IN ANTERIOR LEADS Confirmed by MD Alfredo, Austin ([id number]) on 03/07/2019 3:11:43 PM Referred By: Confirmed By:Austin Fuentes MD
[2019-03-07 15:16] LABS: BASO % 0.6 % (0-2.0); EOS % 0.1 % (0-4.5); HEMATOCRIT 34.8 % (32.4-45.2); HEMOGLOBIN 10.9 GM/dL (10.7-15.3); LYMPH % 7.3 % (8-40); MCH 29.7 pg (25.7-33.7); MCHC 31.2 g/dl (32.0-36.0); MEAN PLT VOLUME 9.2 fl (7.5-11.1); MONO % 7.6 % (3.8-10.2); NEUT % 84.4 % (42.8-82.8); PLATELET COUNT 240 K/MM3 (134-434); RBC 3.66 M/mm3 (3.60-5.2); RDW 15.9 % (11.6-15.6); WHITE BLOOD COUNT 9.4 K/mm3 (4.0-10.0)
[2019-03-07 15:29] LABS: INR 1.45 (0.83-1.09); PROTHROMBIN TIME (PATIENT) 17.2 SEC (9.7-13.0)
[2019-03-07 15:31] LABS: ACTIVATED PTT 33.2 SECONDS (25.2-36.5)
[2019-03-07 15:47] LABS: BILIRUBIN,TOTAL 0.4 mg/dL (0.2-1); BLOOD UREA NITROGEN 29.8 mg/dL (7-18); CALCIUM 8.9 mg/dL (8.5-10.1); CREATININE 1.3 mg/dL (0.55-1.3); N-TERMINAL BNP 6184.5 pg/ml (5-450); POTASSIUM 3.5 mmol/L (3.5-5.1); TOT PROT 6.6 g/dl (6.4-8.2)
--- NOTE | 2019-03-07 16:17 | PDOC ---
Attending Attestation - Resident Resident Name: DeondreAriel - ED Attending Attestation I have performed the following: I have examined & evaluated the patient, The case was reviewed & discussed with the resident, I agree w/resident's findings & plan - HPI HPI: 03/07/19 16:12 83-year-old female with history of CHF, discharged about 2 weeks ago for CHF exacerbation, got home from [facility] 3 days ago presents now with episode of shortness of breath around 12 PM. Patient was in her usual state of health, was in the bathroom when she suddenly felt afraid followed by dyspnea, resolved after EMS arrived and found normal vital signs. Patient has had panic attacks in the past with similar presentation, though the shortness of breath reminds her of her CHF. No chest pain or palpitations, no lightheadedness or syncope, no fevers or chills or cough. No longer symptomatic, feels well now. - Physicial Exam PE: 03/07/19 16:14 Vitals as noted and within normal limits, O2 sat 99% on room air during my examination and while speaking Pleasant elderly woman in no acute distress, smiling and conversant Trachea midline, no stridor Heart is regular, slight right basilar crackles, otherwise clear without wheezing Abdomen benign - Medical Decision Making 03/07/19 16:14 83-year-old female with history of CHF maintained on increased doses of Lasix at home, 80 mg twice daily, closely monitored by her PCP and cpr ambulance driver from near [facility], here with a transient episode of shortness of breath, question cardiac versus panic attack. Cardiac etiology could be explained by some arrhythmia, patient without palpitations. Here with normal O2 sat and well -appearing. Labs including troponin EKG, chest x-ray Reassess, if above is within normal limits and patient remains asymptomatic with normal vital signs, discuss potential discharge and outpatient follow-up with PCP and cpr ambulance driver 03/07/19 16:17 UA with evidence of UTI, will treat empirically. labs otherwise wnl. no leukocytosis, trop negative, BNP below baseline. Heart Score/ECG Review #1 ECG reviewed & interpreted by me at: 13:48 General ECG Interpretation: Sinus Rhythm, Normal Rate (68), Normal Intervals ( qtc 514), No acute ischemic changes Compared to previous ECG there are: No significant change (prolonged QT unchanged from prior)
[2019-03-07] MEDS ORDERED: CEPHALEXIN MONOHYDRATE 500 MG CAPSULE (UD) PO ONE (16:32)
[2019-03-07] MEDS ORDERED: CEPHALEXIN MONOHYDRATE 500 MG CAPSULE (UD) ONE (16:38)
[2019-03-07 16:58] VITALS: BP 110/60; PULSE 67
== END 2019-03-07 17:02 | disposition home or self-care (01) ==
LOC: JER 13:36
DX: I34.0 Nonrheumatic mitral (valve) insufficiency (principal); N39.0 Urinary tract infection, site not specified; R06.02 Shortness of breath; I25.10 Atherosclerotic heart disease of native coronary artery without angina pectoris; I13.0 Hypertensive heart and chronic kidney disease with heart failure and stage 1 through stage 4 chronic kidney disease, or unspecified chronic kidney disease; N18.9 Chronic kidney disease, unspecified; I50.89 Other heart failure; I48.91 Unspecified atrial fibrillation; Z79.01 Long term (current) use of anticoagulants; Z95.0 Presence of cardiac pacemaker; E78.00 Pure hypercholesterolemia, unspecified; D64.9 Anemia, unspecified; K44.9 Diaphragmatic hernia without obstruction or gangrene; F03.90 Unspecified dementia, unspecified severity, without behavioral disturbance, psychotic disturbance, mood disturbance, and anxiety
CPT/HCPCS: 36415; 71045-TC-FY; 80053; 81003; 82550; 83880; 84484; 85025; 85610; 85730; 87086; 87186; 93005; 93010; 99284-25

== ENCOUNTER 2019-03-12 13:42 | Inpatient (IN) | payer OTHER, BC ==
--- NOTE | 2019-03-12 14:12 | PDOC ---
History of Present Illness - General Chief Complaint: Shortness of Breath Stated Complaint: ANXIETY Time Seen by Provider: 03/12/19 13:51 - History of Present Illness Initial Comments: 03/12/19 14:18 Pt is an 83 y/o F with a significant past medical history of a-fib (on Eliquis ), PPM, Progressive Dementia, severe Mitral regurgitation, Moderate to Sev TR, Severe Pul HTN, transaminitis, frequent UTI's presents to our Emergency Department due to shortness of breath and intermittent chest pain. Pt endorses that she has been rather weak however cannot elaborate when prompted for detail. Pt was recently seen in our ER 4 days ago in which she underwent routine labs and a chest xray which was clear. Past History - Past Medical History Allergies/Adverse Reactions: Allergies Allergy/AdvReac Type Severity Reaction Status Date / Time No Known Allergies Allergy Verified 03/12/19 13:59 Home Medications: Ambulatory Orders Amiodarone HCl [Cordarone -] 200 mg PO BID 03/07/19 Apixaban [Eliquis] 2.5 mg PO BID 03/07/19 Atorvastatin Ca [Lipitor] 10 mg PO HS 03/07/19 Cyanocobalamin (Vitamin B-12) [Vitamin B-12] 2,000 mcg PO DAILY 03/07/19 Docusate Sodium [Colace] 100 mg PO TID 03/07/19 Donepezil HCl [Aricept] 10 mg PO DAILY 03/07/19 Ferrous Sulfate 325 mg PO DAILY 03/07/19 Furosemide [Lasix] 40 mg PO BID 03/07/19 Lorazepam [Ativan] 0.5 mg PO PRN PRN 03/07/19 Mag Hydrox/Al Hydrox/Simeth [Mylanta Oral Suspension -] 30 ml PO PRN PRN Magnesium Oxide 400 40 mg PO BID 03/07/19 Memantine HCl [Namenda -] 5 mg PO BID 03/07/19 Metoprolol Succinate [Toprol Xl] 25 mg PO DAILY 03/07/19 Mirtazapine [Remeron -] 15 mg PO HS 03/07/19 Pantoprazole Sodium [Protonix] 40 mg PO DAILY 03/07/19 Potassium Chloride [Klor-Con] 40 meq PO DAILY 03/07/19 Sucralfate [Carafate -] 1 gm PO TID 03/07/19 Anemia: Yes Asthma: No Cardiac Disorders: Yes (A-fib, PACEMAKER) COPD: No CHF: Yes Dementia: Yes GI Disorders: Yes (INDIGESTION, HIATAL HERNIA) HTN: Yes Hypercholesterolemia: Yes Psychiatric Problems: Yes (Anxiety) - Surgical History Cardiac Surgery: Yes (AV NODE ABLATION,pacemaker: [employer]- model # L331 Atrial lead # 7) - Immunization History Td Vaccination: Yes Immunization Up to Date: (UNKNOWN) - Psycho Social/Smoking Cessation Hx Smoking Status: No Smoking History: Never smoked Have you smoked in the past 12 months: No Number of Cigarettes Smoked Daily: 0 If you are a former smoker, when did you quit?: 30 YEARS AGO Hx Alcohol Use: No Drug/Substance Use Hx: No Substance Use Type: None Hx Substance Use Treatment: No Review of Systems - Review of Systems Constitutional: Yes: Malaise, Weakness. No: Chills, Fever Respiratory: Yes: Shortness of Breath Cardiac (ROS): Yes: Chest Pain ABD/GI: No: Constipated, Diarrhea : No: Burning, Dysuria Neurological: No: Headache *Physical Exam - Vital Signs Last Vital Signs Temp Pulse Resp BP Pulse Ox 98.0 F 74 18 110/74 96 03/12/19 14:01 03/12/19 14:01 03/12/19 14:01 03/12/19 14:01 03/12/19 14:01 - Physical Exam Comments: 03/12/19 17:12 AAOx3 Mild distress EOMI Sclera Clear, Dry mucous membranes Systolic Ejection Murmur, S1S2 Crackles left lower lung base NDNT No CCE Heart Score/ECG Review - ECG Impressions Comment:: 03/12/19 16:03 Sinus rhythm w/ occasional premature ventricular complexes nonspecific t wave abnorm. Prolonged Qt 499. HR 69 bpm. 03/12/19 17:21 ED Treatment Course - LABORATORY CBC & Chemistry Diagram: 03/12/19 14:35 03/12/19 14:35 Medical Decision Making - Medical Decision Making 03/12/19 15:45 Late entry Labs drawn CBC w/ diff, CMP, cardiac profile, BNP, CXR Trop neg BNP nearly double compared to 03/07/19--> 11,999 Will give 40 Iv Lasix one time, I.V hydration stopped. Spoke to Lorin Vigil, will admit patient to Hospitalist Service. Will admit for CHF exacerbation. Discharge - Discharge Information Problems reviewed: Yes Clinical Impression/Diagnosis: Weakness, Mitral valve regurgitation, CHF (congestive heart failure) Condition: Guarded - Admission Yes - Follow up/Referral - Patient Discharge Instructions - Post Discharge Activity
[2019-03-12] MEDS ORDERED: SODIUM CHLORIDE 1,000 ML IV ONE (14:17)
--- NOTE | 2019-03-12 14:33 | PDOC ---
Attending Attestation - Resident Resident Name: Jose Mustafa - ED Attending Attestation I have performed the following: I have examined & evaluated the patient, The case was reviewed & discussed with the resident, I agree w/resident's findings & plan, Exceptions are as noted - HPI HPI: 03/12/19 14:43 83yo female with cp and sob at home. Pt denies cp and states sob at this time. Unsure what she was doing at home when she developed the cp and sob. Pt was seen 4 days ago in the ER and sent home with clear cxr and only mildly elevated. Pt also with a hx of panic attacks, but denies feeling anxious or panicky today. Pt currently appears dehydrated, asking to drink apple juice with a dry cracked tongue in no resp distress. - Physicial Exam PE: 03/12/19 14:44 gen: awake, alert, oriented to person and place, not time, nad heent: dry cracked tongue and tacky mm heart: +s1s2 reg, + 3/6 systolic ejection murmur lungs: crackles at the L base abd: soft, nt/nd +bs ext: trace edema at the ankles - Medical Decision Making 03/12/19 14:45 a/p: 83yo female with hx of chf with cp and sob at home earlier today -no cp at this time -no sob at this time -will send labs, ekg, cxr, trop -will give po intake at this time -chris monitor and reassess 03/12/19 15:28 bnp [id number], up from 6000 pt with sob will stop ivf hydration, will give lasix trop neg will admit for chf exacerbation microblog sent to [facility] for admission 03/12/19 16:13 resident discussed the case with [facility] who accepts pt to service Heart Score/ECG Review - ECG Intrepretation Comment:: 03/12/19 15:06 sinus at 69, nl axis, pvc, no acute st/t wave findings 03/12/19 15:07 qtc 499 03/12/19 16:13 repeat: sinus at 67, prolonged qtc at 513, t wave inversions inferior leads and septally, will continue to monitor
[2019-03-12 14:45] LABS: BASO % 0.7 % (0-2.0); EOS % 1.9 % (0-4.5); HEMATOCRIT 32.9 % (32.4-45.2); HEMOGLOBIN 11.2 GM/dL (10.7-15.3); LYMPH % 9.7 % (8-40); MCH 32.1 pg (25.7-33.7); MCHC 34.2 g/dl (32.0-36.0); MEAN CELL VOLUME 93.9 fl (80-96); MONO % 12.4 % (3.8-10.2); NEUT % 75.3 % (42.8-82.8); PLATELET COUNT 263 K/MM3 (134-434); RDW 16.4 % (11.6-15.6); WHITE BLOOD COUNT 9.8 K/mm3 (4.0-10.0)
[2019-03-12 15:20] LABS: ALBUMIN 2.9 g/dl (3.4-5.0); BILIRUBIN,TOTAL 0.4 mg/dL (0.2-1); BLOOD UREA NITROGEN 27.8 mg/dL (7-18); CREATININE 1.2 mg/dL (0.55-1.3); N-TERMINAL BNP 11990.8 pg/ml (5-450); POTASSIUM 3.4 mmol/L (3.5-5.1); TOT PROT 6.4 g/dl (6.4-8.2)
[2019-03-12] MEDS ORDERED: FUROSEMIDE 40 MG/4 ML INJECTABLE VIAL IVPUSH ONE (15:29)
[2019-03-12] MEDS ORDERED: POTASSIUM CHLORIDE ORAL LIQUID 20 MEQ/15 ML PO ONE (16:00)
[2019-03-12] MEDS ORDERED: POTASSIUM CHLORIDE ORAL LIQUID 20 MEQ/15 ML ONE (16:08)
[2019-03-12] MEDS ORDERED: FUROSEMIDE 40 MG/4 ML INJECTABLE VIAL ONE (16:09)
[2019-03-12 16:25] LABS: URINE APPEARANCE CLEAR; URINE BILIRUBIN NEGATIVE (NEGATIVE); URINE COLOR YELLOW; URINE GLUCOSE (UA) NEGATIVE (NEGATIVE); URINE KETONE NEGATIVE (NEGATIVE); URINE LEUK ESTERASE NEGATIVE (NEGATIVE); URINE NITRITE NEGATIVE (NEGATIVE); URINE PROTEIN NEGATIVE (NEGATIVE); URINE UROBILINOGEN 0.2 mg/dL (0.2-1.0)
[2019-03-12] MEDS ORDERED: MAG HYDROX/AL HYDROX/SIMETH 30 ML UNIT-DOSE CUP PO PRN (17:31)
[2019-03-12] MEDS ORDERED: ACETAMINOPHEN 325 MG TABLET (FP) PO PRN (17:33)
--- NOTE | 2019-03-12 17:47 | HP ---
Admitting History and Physical - Primary Care Physician PCP: Guerrero Albert - Admission Chief Complaint: Shortness of breath History of Present Illness: 83 year old F with PMHx of Progressive Dementia, severe Mitral regurgitation, Moderate to Sev TR, Severe Pul HTN, Paroxysmal Afib s/p PPM, transaminitis, frequent UTI's, recently admitted tO [facility] from 01/26-02/01 with UTI/AMS/CHF/ Elevated troponin, followed by another admission on 02/05--02/20 for CHF exacerbation and was subsequently discharged to [facility] with instructions to follow up with Dr. Yariel Cam at [facility] within 3days of d/c from rehab. Pt was released from [facility] on 03/03 and her appointment with [facility] is mid -March. On the afternoon pt reported acute onset of shortness of breath not relieved by her PRN home O2. Her sat prior to applying O2 as per [facility] [facility] was 98% and her BP was "low normal". Her home comfort advisor relates some component of anxiety prior to shortness of breath. 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: Dementia, Other (Cognitive decline) Cardiovascular: Yes: AFIB, HTN, Hyperlipdemia, Mitral Insufficiency (MVR w Mod- Severe MR), Other ( Moderate to sevre Tricuspid regurg) Gastrointestinal: Yes: GERD Renal/: Yes: Renal Inusuff, UTI Reproductive: Yes: Postmenopausal Heme/Onc: No: Anemia, B12 Deficiency, Bleeding Disorder, Cancer, Current Chemotherapy, Current Radiation Therapy, Hemochromatosis, Hypercoaguable State, Myeloproliferative Synd, Sickle Cell Disease, Sickle Cell Trait, Thrombocytopenia, Other Infectious Disease: Yes: Other (UTIS) Psych: Yes: Anxiety - Past Surgical History Past Surgical History: Yes: Permanent Pacemaker ([employer]- model # L331 Atrial lead # 7) Additional Past Surgical History: AV Node Ablation - Advance Directives Advance Directives: Yes: Health Care Proxy ( Daughter: Isa Pope [phone]) - Smoking History Smoking history: Never smoked Have you smoked in the past 12 months: No Aproximately how many cigarettes per day: 0 (h/o 2PPD age [age]) If you are a former smoker, when did you quit?: stopped at age 50 - Alcohol/Substance Use Hx Alcohol Use: No History of Substance Use: reports: None - Social History Usual Living Arrangement: Yes: With Spouse, Other ([facility]) Do you think of yourself as: Straight/Heterosexual ADL: Independent History of Recent Travel: No Home Medications - Allergies Allergies/Adverse Reactions: Allergies Allergy/AdvReac Type Severity Reaction Status Date / Time No Known Allergies Allergy Verified 03/12/19 13:59 - Home Medications Home Medications: Ambulatory Orders Amiodarone HCl [Cordarone -] 200 mg PO BID 03/07/19 Apixaban [Eliquis] 2.5 mg PO BID 03/07/19 Atorvastatin Ca [Lipitor] 10 mg PO HS 03/07/19 Cyanocobalamin (Vitamin B-12) [Vitamin B-12] 2,000 mcg PO DAILY 03/07/19 Docusate Sodium [Colace] 100 mg PO TID 03/07/19 Donepezil HCl [Aricept] 10 mg PO DAILY 03/07/19 Ferrous Sulfate 325 mg PO DAILY 03/07/19 Furosemide [Lasix] 40 mg PO BID 03/07/19 Lorazepam [Ativan] 0.5 mg PO PRN PRN 03/07/19 Mag Hydrox/Al Hydrox/Simeth [Mylanta Oral Suspension -] 30 ml PO PRN PRN Magnesium Oxide 400 40 mg PO BID 03/07/19 Memantine HCl [Namenda -] 5 mg PO BID 03/07/19 Metoprolol Succinate [Toprol Xl] 25 mg PO DAILY 03/07/19 Mirtazapine [Remeron -] 15 mg PO HS 03/07/19 Pantoprazole Sodium [Protonix] 40 mg PO DAILY 03/07/19 Potassium Chloride [Klor-Con] 40 meq PO DAILY 03/07/19 Sucralfate [Carafate -] 1 gm PO TID 03/07/19 Family Medical History Other Family History: Mother age 101 natural causes. Father age 61 ETOH abuse. sister alive age 78 HTN. Sister alive age 88 well Review of Systems - Review of Systems Constitutional: reports: No Symptoms Eyes: reports: No Symptoms HENT: reports: No Symptoms Neck: reports: No Symptoms Cardiovascular: reports: Shortness of Breath Respiratory: reports: SOB Genitourinary: reports: No Symptoms Breasts: reports: No Symptoms Reported Musculoskeletal: reports: No Symptoms Integumentary: reports: No Symptoms Neurological: reports: No Symptoms Endocrine: reports: No Symptoms Hematology/Lymphatic: reports: No Symptoms Psychiatric: reports: Anxiety Physical Examination Vital Signs: Vital Signs Temperature 98.0 F 03/12/19 14:01 Pulse Rate 65 03/12/19 15:35 Respiratory Rate 20 03/12/19 15:35 Blood Pressure 105/62 03/12/19 15:35 O2 Sat by Pulse Oximetry (%) 99 03/12/19 15:35 Constitutional: Yes: No Distress, Calm Eyes: Yes: Conjunctiva Clear, PERRL, Other (full dentures) HENT: Yes: Atraumatic, Normocephalic Neck: Yes: Supple Cardiovascular: Yes: Regular Rate and Rhythm, JVD, Murmur (HSM across precordium ), S1, S2 Respiratory: Yes: CTA Bilaterally Gastrointestinal: Yes: Normal Bowel Sounds, Soft ...Rectal Exam: Yes: Deferred Renal/: Yes: Cervantes Present, Incontinence Musculoskeletal: Yes: WNL Extremities: Yes: WNL Edema: No Peripheral Pulses WNL: Yes Peripheral Pulses: Left Radial: 2+, Right Radial: 2+, Left Doralis Pedis: 2+, Right Dorsalis Pedis: 2+ Integumentary: Yes: WNL Neurological: Yes: Alert, Oriented ...Motor Strength: WNL Psychiatric: Yes: Alert, Oriented Labs: CBC, BMP 03/12/19 14:35 03/12/19 14:35 Imaging - Results Chest X-ray: Report Reviewed (CXR 03/12/2019 A single apical lordotic view of the chest has been submitted. Since the prior study of 03/07/2019 at 1526 hours , there is a more apical lordotic projection with clear lungs, prominent mediastinum, plaque in the aortic knob and double lead pacemaker. An acute chest process is not seen. The angles are sharp and the soft tissues are intact. Impression: No acute chest pathology. Reported By: Jose Ambriz MD 03/12/19 0894) Problem List - Problems (1) Dementia Assessment/Plan: continue namenda and aricept frequent assurance and reorientation vitamin B12 daily Code(s): F03.90 - UNSPECIFIED DEMENTIA WITHOUT BEHAVIORAL DISTURBANCE (2) GERD (gastroesophageal reflux disease) Assessment/Plan: continue protonix, carafate Code(s): K21.9 - GASTRO-ESOPHAGEAL REFLUX DISEASE WITHOUT ESOPHAGITIS (3) Anxiety and depression Assessment/Plan: remeron 15mg qhs Ativan 0.5mg PRN daily Code(s): F41.9 - ANXIETY DISORDER, UNSPECIFIED; F32.9 - MAJOR DEPRESSIVE DISORDER, SINGLE EPISODE, UNSPECIFIED (4) Prophylactic measure Assessment/Plan: pt on eliquis 2.5mg BID CARLOS stockings OOB to chair as tolerated ambulate with 1 person assist fall precautions bowel regimen with senna/colace irone tabs once daily Code(s): Z29.9 - ENCOUNTER FOR PROPHYLACTIC MEASURES, UNSPECIFIED (5) CHF (congestive heart failure) Assessment/Plan: strict intake and output lasix 40mg twice daily KCL 40meq Qam last echo done 01/27, will repeat in the morning to assess progression of valvular disease cards consult placed Code(s): I50.9 - HEART FAILURE, UNSPECIFIED (6) Atrial fibrillation Assessment/Plan: toprol xl 25mh daily amio 200mg daily Eliquis 2.5mg BID monitor on tele Code(s): I48.91 - UNSPECIFIED ATRIAL FIBRILLATION Qualifiers: Atrial fibrillation type: paroxysmal Qualified Code(s): I48.0 - Paroxysmal atrial fibrillation (7) HTN (hypertension) Assessment/Plan: cont toprol XL Code(s): I10 - ESSENTIAL (PRIMARY) HYPERTENSION Assessment/Plan Full code Visit type - Emergency Visit Emergency Visit: Yes ED Registration Date: 03/12/19 Care time: The patient presented to the Emergency Department on the above date and was hospitalized for further evaluation of their emergent condition. - New Patient This patient is new to me today: Yes Date on this admission: 03/12/19 - Critical Care Critical Care patient: No
[2019-03-12 17:56] VITALS: BMI 21.2
[2019-03-12] MEDS: AMIODARONE HCL 200 MG TABLET (FP) PO SCH (21:42)
[2019-03-12] MEDS: DOCUSATE SODIUM 100 MG CAPSULE (FP) PO SCH (21:42)
[2019-03-12] MEDS: MIRTAZAPINE 15 MG TABLET (FP) PO SCH (21:43)
[2019-03-12] MEDS: APIXABAN 2.5 MG TABLET PO SCH (21:43)
[2019-03-12] MEDS: ATORVASTATIN CA 10 MG TABLET (FP) PO SCH (21:43)
[2019-03-12] MEDS: MEMANTINE HCL 10 MG TABLET (FP) PO SCH (21:44)
[2019-03-12] MEDS: LORazepam 0.5 MG TABLET PO PRN (21:44)
[2019-03-12] MEDS ORDERED: MAGNESIUM OXIDE PO SCH (22:00)
[2019-03-12] MEDS: SUCRALFATE 1 GM TABLET (FP) PO SCH (22:46)
[2019-03-13] MEDS: SUCRALFATE 1 GM TABLET (FP) PO SCH ×3 (05:54→21:54)
[2019-03-13] MEDS: DOCUSATE SODIUM 100 MG CAPSULE (FP) PO SCH ×3 (05:54→21:51)
[2019-03-13] MEDS: FUROSEMIDE 40 MG/4 ML INJECTABLE VIAL IVPUSH SCH ×2 (05:57→14:03)
[2019-03-13 06:43] LABS: BASO % 0.7 % (0-2.0); EOS % 3.5 % (0-4.5); HEMATOCRIT 30.9 % (32.4-45.2); HEMOGLOBIN 10.3 GM/dL (10.7-15.3); LYMPH % 15.1 % (8-40); MCH 31.2 pg (25.7-33.7); MCHC 33.3 g/dl (32.0-36.0); MEAN CELL VOLUME 93.8 fl (80-96); MEAN PLT VOLUME 9.4 fl (7.5-11.1); MONO % 10.5 % (3.8-10.2); NEUT % 70.2 % (42.8-82.8); PLATELET COUNT 224 K/MM3 (134-434); RBC 3.29 M/mm3 (3.60-5.2); RDW 16.4 % (11.6-15.6); WHITE BLOOD COUNT 9.2 K/mm3 (4.0-10.0)
[2019-03-13 07:09] LABS: ALBUMIN 2.5 g/dl (3.4-5.0); BILIRUBIN,TOTAL 0.6 mg/dL (0.2-1); BLOOD UREA NITROGEN 22.5 mg/dL (7-18); CREATININE 1.1 mg/dL (0.55-1.3); MAGNESIUM 2.3 mg/dL (1.8-2.4); PHOSPHOROUS 3.5 mg/dL (2.5-4.9); POTASSIUM 4.1 mmol/L (3.5-5.1); TOT PROT 5.6 g/dl (6.4-8.2)
--- NOTE | 2019-03-13 08:59 | PN ---
Teaching Attending Note Name of Resident: Jose Abrams ATTENDING PHYSICIAN STATEMENT I saw and evaluated the patient. I reviewed the resident's note and discussed the case with the resident. I agree with the resident's findings and plan as documented. SUBJECTIVE: Patient denies SOB. OBJECTIVE: Vital Signs Period Temp Pulse Resp BP Sys/Rice Pulse Ox Last 24 Hr 97.6 F-98.8 F 65-78 18-20 93-122/45-74 96-100 HEART: S1S2, RRR, (+) 2/6 SM LUNGS: Clear ABDOMEN: Soft, non-tender, non-distended, normal BS EXTREMITIES: No edema Laboratory Results - last 24 hr 03/12/19 03/12/19 03/12/19 14:35 14:35 15:45 WBC 9.8 RBC 3.50 L Hgb 11.2 Hct 32.9 MCV 93.9 MCH 32.1 MCHC 34.2 RDW 16.4 H Plt Count 263 MPV 9.0 Absolute Neuts (auto) 7.4 Neutrophils % 75.3 Lymphocytes % 9.7 D Monocytes % 12.4 H Eosinophils % 1.9 D Basophils % 0.7 Nucleated RBC % 0 Sodium 138 Potassium 3.4 L Chloride 99 Carbon Dioxide 29 Anion Gap 10 BUN 27.8 H Creatinine 1.2 Est GFR (CKD-EPI)AfAm 48.40 Est GFR (CKD-EPI)NonAf 41.76 Random Glucose 73 L Calcium 8.0 L Phosphorus Magnesium Total Bilirubin 0.4 AST 21 ALT 21 Alkaline Phosphatase 113 Creatine Kinase 34 Troponin I 0.02 B-Natriuretic Peptide 61434.8 H Total Protein 6.4 Albumin 2.9 L Urine Color Yellow Urine Appearance Clear Urine pH 6.0 Ur Specific [place] 1.012 Urine Protein Negative Urine Glucose (UA) Negative Urine Ketones Negative Urine Blood Negative Urine Nitrite Negative Urine Bilirubin Negative Urine Urobilinogen 0.2 Ur Leukocyte Esterase Negative 03/13/19 03/13/19 05:25 05:25 WBC 9.2 RBC 3.29 L Hgb 10.3 L Hct 30.9 L MCV 93.8 MCH 31.2 MCHC 33.3 RDW 16.4 H Plt Count 224 MPV 9.4 Absolute Neuts (auto) 6.5 Neutrophils % 70.2 Lymphocytes % 15.1 D Monocytes % 10.5 H Eosinophils % 3.5 D Basophils % 0.7 Nucleated RBC % 0 Sodium 136 Potassium 4.1 Chloride 99 Carbon Dioxide 31 Anion Gap 6 L BUN 22.5 H Creatinine 1.1 Est GFR (CKD-EPI)AfAm 53.77 Est GFR (CKD-EPI)NonAf 46.39 Random Glucose 82 Calcium 8.0 L Phosphorus 3.5 Magnesium 2.3 Total Bilirubin 0.6 AST 15 ALT 18 Alkaline Phosphatase 97 Creatine Kinase Troponin I B-Natriuretic Peptide Total Protein 5.6 L Albumin 2.5 L Urine Color Urine Appearance Urine pH Ur Specific [place] Urine Protein Urine Glucose (UA) Urine Ketones Urine Blood Urine Nitrite Urine Bilirubin Urine Urobilinogen Ur Leukocyte Esterase Current Medications Generic Name Dose Route Start Last Admin Trade Name Freq PRN Reason Stop Dose Admin Acetaminophen 650 mg 03/12/19 17:33 Tylenol - PO Q6H PRN PAIN LEVEL 4 - 6 Al Hydroxide/Mg Hydroxide 30 ml 03/12/19 17:31 Mylanta Oral Suspension - PO PRN PRN DYSPEPSIA Amiodarone HCl 200 mg 03/12/19 22:00 03/12/19 21:42 Cordarone - PO 200 mg BID PETTY Administration Apixaban 2.5 mg 03/12/19 22:00 03/12/19 21:43 Eliquis - PO 2.5 mg BID PETTY Administration Atorvastatin Calcium 10 mg 03/12/19 22:00 03/12/19 21:43 Lipitor - PO 10 mg HS PETTY Administration Cyanocobalamin 2,000 mcg 03/13/19 10:00 Vitamin B12 - PO DAILY PETTY Docusate Sodium 100 mg 03/12/19 22:00 03/13/19 05:54 Colace - PO 100 mg TID PETTY Administration Donepezil HCl 10 mg 03/13/19 10:00 Aricept - PO DAILY PETTY Ferrous Sulfate 325 mg 03/13/19 10:00 Feosol - PO DAILY PETTY Furosemide 40 mg 03/13/19 06:00 03/13/19 05:57 Lasix Injection - IVPUSH 40 mg BID@0600,1400 PETTY Administration Influenza Virus Vaccine Quadrival 60 mcg 03/13/19 10:00 Flulaval Quad [id number] IM 03/13/19 10:01 .ONCE ONE Lorazepam 0.5 mg 03/12/19 17:31 03/12/19 21:44 Ativan - PO 0.5 mg DAILY PRN Administration ANXIETY Memantine 5 mg 03/12/19 22:00 03/12/19 21:44 Namenda - PO 5 mg BID PETTY Administration Metoprolol Succinate 25 mg 03/13/19 10:00 Toprol Xl - PO DAILY PETTY Mirtazapine 15 mg 03/12/19 22:00 03/12/19 21:43 Remeron - PO 15 mg HS PETTY Administration Non-Formulary Medication 40 mg 03/12/19 22:00 Magnesium Oxide 400 PO BID [facility] Pantoprazole Sodium 40 mg 03/13/19 10:00 Protonix - PO DAILY [facility] Potassium Chloride 40 meq 03/13/19 10:00 K-Dur - PO DAILY [facility] Sucralfate 1 gm 03/12/19 22:00 03/13/19 05:54 Carafate - PO 1 gm TID PETTY Administration ASSESSMENT AND PLAN: This is an 83 year old woman with a history of chronic diastolic heart failure, PAF, AV node ablation, pacemaker, HTN, hyperlipidemia, severe mitral regurgitation, moderate to severe tricuspid regurgitation, severe pulmonary HTN , depression, anxiety, dementia, GERD, frequent UTIs who presented to the ED with shortness of breath. 1. Acute on chronic diastolic heart failure - Continue Lasix IV - Monitor I&O, weight 2. Dementia - Continue Namenda, Aricept, Remeron 3. GERD - Continue Protonix, Carafate 4. Depression and anxiety - Continue Remeron, Ativan as needed 5. Paroxysmal atrial fibrillation - History of AV node ablation, pacemaker placement - Continue Toprol XL, Amiodarone, Eliquis 6. Severe mitral regurgitation 7. Moderate to severe tricuspid regurgitation 8. Severe pulmonary HTN 9. HTN - Continue Toprol XL, Lasix 10. Hyperlipidemia - Continue Lipitor 11. Hypokalemia - Improved
[2019-03-13] MEDS: FERROUS SO4 325 MG TABLET (FP) PO SCH (09:50)
[2019-03-13] MEDS: POTASSIUM CHLORIDE TABS 20 MEQ TABLET.ER (FP) PO SCH (09:51)
[2019-03-13] MEDS: MEMANTINE HCL 10 MG TABLET (FP) PO SCH ×2 (09:51→21:53)
[2019-03-13] MEDS: DONEPEZIL HCL 10 MG TABLET (FP) PO SCH (09:51)
[2019-03-13] MEDS: APIXABAN 2.5 MG TABLET PO SCH ×2 (09:51→21:54)
[2019-03-13] MEDS: CYANOCOBALAMIN 1,000 MCG TABLET (FP) PO SCH (09:51)
[2019-03-13] MEDS: AMIODARONE HCL 200 MG TABLET (FP) PO SCH ×2 (09:51→11:36)
[2019-03-13] MEDS: PANTOPRAZOLE 40 MG TABLET (FP) PO SCH (09:51)
--- NOTE | 2019-03-13 09:55 | EKG ---
Test Reason : Blood Pressure : / mmHG Vent. Rate : 074 BPM Atrial Rate : 074 BPM P-R Int : 156 ms QRS Dur : 102 ms QT Int : 460 ms P-R-T Axes : 045 020 -01 degrees QTc Int : 510 ms SINUS RHYTHM WITH PREMATURE VENTRICULAR COMPLEXES WITH ABERRANT CONDUCTION NONSPECIFIC ST AND T WAVE ABNORMALITY PROLONGED QT ABNORMAL ECG WHEN COMPARED WITH ECG OF 12-MAR-2019 14:48, ABERRANT CONDUCTION IS NOW PRESENT Confirmed by JESSICA NDIAYE, JESSICA ([id number]) on 03/13/2019 9:55:42 AM Referred By: JOSSELIN BEAUCHAMP Confirmed By:JESSICA LOPEZ MD
--- NOTE | 2019-03-13 09:55 | CON.CARD ---
Consult Consult Specialty:: cardio - History of Present Illness History of Present Illness: 83 F here with known severe mitral regurgitation followed by Dr. Cam ([facility] [place]) who has, in d /w family, deferred alvarado-clip due to progressive frailty and cognitive decline. has had mult recent admits here for HF, last sent to rehab 02/20. at that time diuresed with lasix IV bid, at times limited by hypotension requiring changing diltiazem to amio for AF rate control. sent out on lasix 80 po bid, with bun/creat 27/1.1. and wt 127 lbs (from 140 peak) went home from rehab and quickly developed sob accompanied by anxiety at home. appt with dr cam pending for later this month. 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, Other (Cognitive decline) Cardio/Vascular: Yes: AFIB, HTN, Hyperlipdemia, Mitral Insufficiency (MVR w Mod- Severe MR), Other ( Moderate to sevre Tricuspid regurg) Gastrointestinal: Yes: GERD Renal/: Yes: Renal Inusuff, UTI Infectious Disease: Yes: Other (UTIS) Psych: Yes: Anxiety - Past Surgical History Past Surgical History: Yes: Permanent Pacemaker ([employer]- model # L331 Atrial lead # 7) - Alcohol/Substance Use Hx Alcohol Use: No History of Substance Use: reports: None - Smoking History Smoking history: Never smoked Have you smoked in the past 12 months: No Aproximately how many cigarettes per day: 0 (h/o 2PPD age [age]) If you are a former smoker, when did you quit?: stopped at age 50 - Social History Usual Living Arrangement: Alone ADL: Independent History of Recent Travel: No Home Medications - Allergies Allergies/Adverse Reactions: Allergies Allergy/AdvReac Type Severity Reaction Status Date / Time No Known Allergies Allergy Verified 03/12/19 13:59 - Home Medications Home Medications: Ambulatory Orders Amiodarone HCl [Cordarone -] 200 mg PO BID 03/07/19 Apixaban [Eliquis] 2.5 mg PO BID 03/07/19 Atorvastatin Ca [Lipitor] 10 mg PO HS 03/07/19 Cyanocobalamin (Vitamin B-12) [Vitamin B-12] 2,000 mcg PO DAILY 03/07/19 Docusate Sodium [Colace] 100 mg PO TID 03/07/19 Donepezil HCl [Aricept] 10 mg PO DAILY 03/07/19 Ferrous Sulfate 325 mg PO DAILY 03/07/19 Furosemide [Lasix] 40 mg PO BID 03/07/19 Lorazepam [Ativan] 0.5 mg PO PRN PRN 03/07/19 Mag Hydrox/Al Hydrox/Simeth [Mylanta Oral Suspension -] 30 ml PO PRN PRN Magnesium Oxide 400 40 mg PO BID 03/07/19 Memantine HCl [Namenda -] 5 mg PO BID 03/07/19 Metoprolol Succinate [Toprol Xl] 25 mg PO DAILY 03/07/19 Mirtazapine [Remeron -] 15 mg PO HS 03/07/19 Pantoprazole Sodium [Protonix] 40 mg PO DAILY 03/07/19 Potassium Chloride [Klor-Con] 40 meq PO DAILY 03/07/19 Sucralfate [Carafate -] 1 gm PO TID 03/07/19 Vital Signs: Vital Signs Temperature 98 F 03/13/19 09:00 Pulse Rate 80 03/13/19 09:00 Respiratory Rate 18 03/13/19 09:00 Blood Pressure 114/70 03/13/19 09:00 O2 Sat by Pulse Oximetry (%) 100 03/12/19 20:23 - Other Data Labs, Other Data: CBC, BMP 03/13/19 05:25 03/13/19 05:25 Troponin, BNP 03/12/19 14:35 Troponin I 0.02 B-Natriuretic Peptide 61119.8 H Troponin, BNP 03/12/19 14:35 Troponin I 0.02 B-Natriuretic Peptide 69088.8 H Assessment/Plan CXR: clear lungs/pleura ECG 03/12 (#1): NSR, diffuse ST-Ts with prolonged QTc (computer measurement 499)- -no signif change vs prior 03/07 (QTc 514 then) #2: no change #3 (03/13): no signif change, QTc 510 tele: Acute diastolic chf, severe MR: -sx's likely predominantly/exclusively secondary to severe MR, given wt is unchanged vs prior discharge--i.e. no signif total body volume excess suspected -BNP 11K, from 13K during prior decompensated HF admits -responded well to lasix 80 iv bid last admit -family's care plan is being guided exclusively by pt's longtime certified social workers in health care ( dr cam) however they have not yet made it back to his office to discuss goals of care, and make a definitive decision on alvarado-clip vs palliative care/ hospice--these appear to be the only two viable options at this point, given inability to keep her out of the hospital with lasix 80 po bid at home -will diurese with iv lasix here, and will encourage pt's dtr to have a definitive conversation with dr cam over the phone about her options PAF: -had AVN ablation and PPM in past, however has had rapid AF at times in hosp -developed rapid AF 02/12, required IV Metoprolol -cont amio (decr to 100 qd, as she has been fully loaded--hope QTc will shorten to <500 msec on this dose, to allow to continue safely using this med. interaction with donepezil noted, however pt requires both of these meds for important qual of life issues) -cont metoprolol 25 bid--tolerate SBP >80 -cont eliquis 2.5 bid--adjusted for age, weight) VTach: -NSVT on tele -K/Mag per usual aggressive targets (08/09) -low dose BB as soft bp's allow hld: -cont prior home statin Progressive Cognitive decline: -Followed by Neuro as outpt
[2019-03-13] MEDS ORDERED: [UNRECOGNIZED DRUG - OTHER] PO SCH (10:00)
[2019-03-13] MEDS ORDERED: PATIENT'S OWN MEDICATION (NON-FORMULARY) (Ferrous Sulfate [Ferrous Sulfate] 325 MG) PO SCH (10:00)
[2019-03-13] MEDS ORDERED: CYANOCOBALAMIN PO SCH (10:00)
[2019-03-13] MEDS ORDERED: metoPROLOL SUCCINATE 25 MG TAB.SR.24H (FP) PO SCH (10:00)
[2019-03-13] MEDS ORDERED: FLU VACCINE QUAD 60 MCG/0.5 ML (MDV 19-20) IM ONE (10:00)
[2019-03-13] MEDS ORDERED: POTASSIUM CHLORIDE 40 MEQ PO SCH (10:00)
--- NOTE | 2019-03-13 10:04 | EKG ---
Test Reason : Blood Pressure : / mmHG Vent. Rate : 067 BPM Atrial Rate : 067 BPM P-R Int : 154 ms QRS Dur : 102 ms QT Int : 486 ms P-R-T Axes : 064 024 024 degrees QTc Int : 513 ms NORMAL SINUS RHYTHM POSSIBLE LEFT ATRIAL ENLARGEMENT NONSPECIFIC ST AND T WAVE ABNORMALITY PROLONGED QT ABNORMAL ECG WHEN COMPARED WITH ECG OF 12-MAR-2019 13:53, PREMATURE VENTRICULAR COMPLEXES ARE NO LONGER PRESENT Confirmed by JESSICA NDIAYE, JESSICA ([id number]) on 03/13/2019 10:03:31 AM Referred By: Confirmed By:JESSICA LOPEZ MD
--- NOTE | 2019-03-13 10:07 | EKG ---
Test Reason : Blood Pressure : / mmHG Vent. Rate : 069 BPM Atrial Rate : 069 BPM P-R Int : 160 ms QRS Dur : 102 ms QT Int : 466 ms P-R-T Axes : 065 028 006 degrees QTc Int : 499 ms SINUS RHYTHM WITH OCCASIONAL PREMATURE VENTRICULAR COMPLEXES POSSIBLE LEFT ATRIAL ENLARGEMENT NONSPECIFIC T WAVE ABNORMALITY PROLONGED QT ABNORMAL ECG WHEN COMPARED WITH ECG OF 07-MAR-2019 13:48, PREMATURE VENTRICULAR COMPLEXES ARE NOW PRESENT Confirmed by JESSICA NDIAYE, JESSICA ([id number]) on 03/13/2019 10:06:50 AM Referred By: Confirmed By:JESSICA LOPEZ MD
[2019-03-13] MEDS ORDERED: AMIODARONE HCL 200 MG TABLET (FP) PO SCH (10:15)
[2019-03-13] MEDS: metoPROLOL SUCCINATE 25 MG TAB.SR.24H (FP) PO SCH ×2 (11:36→21:54)
--- NOTE | 2019-03-13 14:13 | ECHO ---
Name: BOBBI ALBERT Exam:Adult Echocardiogram Study Date: 03/13/2019 11:54 AM Age: 83 yrs Reason For Study: Severe MR, Severe TR Height: 65 in Weight: 128 lb BSA: 1.6 m2 MMode/2D Measurements & Calculations IVSd: 1.2 cm LA dimension: 3.8 cm LVIDd: 4.7 cm ACS: 1.6 cm LVIDs: 3.1 cm LVPWd: 1.3 cm EDV(Teich): 100.8 ml LVOT diam: 1.7 cm ESV(Teich): 39.1 ml RV S Ahmet: 12.9 cm/sec Doppler Measurements & Calculations MV E max ahmet: 141.9 cm/sec Ao V2 max: 416.0 cm/sec MV A max ahmet: 63.5 cm/sec Ao max P.2 mmHg MV E/A: 2.2 Ao V2 mean: 305.5 cm/sec Ao mean P.4 mmHg Ao V2 VTI: 118.3 cm HARINDER(I,D): 0.27 cm2 HARINDER(V,D): 0.51 cm2 LV V1 max P.2 mmHg MR max ahmet: 366.5 cm/sec LV V1 mean P.2 mmHg MR max P.9 mmHg LV V1 max: 89.0 cm/sec LV V1 mean: 48.4 cm/sec LV V1 VTI: 13.3 cm SV(LVOT): 31.9 ml TR max ahmet: 407.6 cm/sec TR max P.5 mmHg RVSP(TR): 76.5 mmHg Med Peak E' Ahmet: 3.6 cm/sec RAP systole: 10.0 mmHg Med E/e': 39.3 Lat Peak E' Ahmet: 5.4 cm/sec Lat E/e': 26.5 Procedure A complete two-dimensional transthoracic echocardiogram was performed (2D, M-mode, Doppler and color flow Doppler). Left Ventricle The left ventricle is normal in size. There is mild concentric left ventricular hypertrophy. Left silke tricular systolic function is normal. Ejection Fraction = 60-65%. No regional wall motion abnormalities noted. Right Ventricle The right ventricle is normal size. There is a pacemaker lead in the right ventricle. The right ventr icular systolic function is normal. RV systolic TDI is 13 cm/s. Atria The left atrial size is normal. Right atrial size is normal. Mitral Valve There is mild mitral annular calcification. There is mild mitral valve thickening. Anterior mitral va lve leaflet is tethered. There is severe mitral regurgitation. Tricuspid Valve The tricuspid valve is normal in structure and function. There is moderate tricuspid regurgitation. P ulmonary artery systolic pressure is at least 85 mmHg if RA pressure is assumed 3 mmHg. Aortic Valve There is mild aortic sclerosis.;. Mild aortic regurgitation. Pulmonic Valve The pulmonic valve is not well visualized. Mild pulmonic valvular regurgitation. Great Vessels The aortic root is normal size. Pericardium/Pleura There is no pericardial effusion. Interpretation Summary The left ventricle is normal in size. There is mild concentric left ventricular hypertrophy. Left ventricular systolic function is normal. No regional wall motion abnormalities noted. Ejection Fraction = 60-65%. The right ventricular systolic function is normal. The left atrial size is normal. Right atrial size is normal. There is mild mitral annular calcification. There is mild mitral valve thickening. Anterior mitral valve leaflet is tethered There is severe mitral regurgitation. There is moderate tricuspid regurgitation. Mild aortic regurgitation. Mild pulmonic valvular regurgitation. There is no pericardial effusion. There is a pacemaker lead in the right ventricle. There is mild aortic sclerosis. Pulmonary artery systolic pressure is at least 85 mmHg if RA pressure is assumed 3 mmHg Jim Hines MD 03/13/2019 02:13 PM
--- NOTE | 2019-03-13 15:51 | CON.CARD ---
Cardiology Consult (text) - Consultation Consultation Note: Consult Specialty:: cardio - History of Present Illness History of Present Illness: 83 F h/o severe MR, multiple recent admissions for CHF exac p/w dyspnea, anxiety. She was recently discharged from [facility], admitted for CHF, diuresed with IV lasix BID. Diltiazem was changed to amiodarone for AF given low BP, sent to rehab with lasix 80 mg PO BID. Went home from rehab and developed dyspnea, anxiety. Weight stable compared to prior dc (127 lbs at dc, 126 lbs today), has not yet followed up with Dr. Cam, her belting cutter, since discharge, planned for later this month. 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, Other (Cognitive decline) Cardio/Vascular: Yes: AFIB, HTN, Hyperlipdemia, Mitral Insufficiency (MVR w Mod- Severe MR), Other ( Moderate to sevre Tricuspid regurg) Gastrointestinal: Yes: GERD Renal/: Yes: Renal Inusuff, UTI Infectious Disease: Yes: Other (UTIS) Psych: Yes: Anxiety - Past Surgical History Past Surgical History: Yes: Permanent Pacemaker ([employer]- model # L331 Atrial lead # 7) - Alcohol/Substance Use Hx Alcohol Use: No History of Substance Use: reports: None - Smoking History Smoking history: Never smoked Have you smoked in the past 12 months: No Aproximately how many cigarettes per day: 0 (h/o 2PPD age 20-50) If you are a former smoker, when did you quit?: stopped at age 50 - Social History Usual Living Arrangement: Alone ADL: Independent History of Recent Travel: No Home Medications - Allergies Allergies/Adverse Reactions: Allergies Allergy/AdvReac Type Severity Reaction Status Date / Time No Known Allergies Allergy Verified 03/12/19 13:59 Home Medications Medication Instructions Recorded Amiodarone HCl [Cordarone -] 200 mg PO BID 03/07/19 Apixaban [Eliquis] 2.5 mg PO BID 03/07/19 Atorvastatin Ca [Lipitor] 10 mg PO HS 03/07/19 Cyanocobalamin (Vitamin B-12) 2,000 mcg PO DAILY 03/07/19 [Vitamin B-12] Docusate Sodium [Colace] 100 mg PO TID 03/07/19 Donepezil HCl [Aricept] 10 mg PO DAILY 03/07/19 Ferrous Sulfate 325 mg PO DAILY 03/07/19 Furosemide [Lasix] 40 mg PO BID 03/07/19 Lorazepam [Ativan] 0.5 mg PO PRN PRN 03/07/19 Mag Hydrox/Al Hydrox/Simeth 30 ml PO PRN PRN 03/07/19 [Mylanta Oral Suspension -] Magnesium Oxide 400 40 mg PO BID 03/07/19 Memantine HCl [Namenda -] 5 mg PO BID 03/07/19 Metoprolol Succinate [Toprol Xl] 25 mg PO DAILY 03/07/19 Mirtazapine [Remeron -] 15 mg PO HS 03/07/19 Pantoprazole Sodium [Protonix] 40 mg PO DAILY 03/07/19 Potassium Chloride [Klor-Con] 40 meq PO DAILY 03/07/19 Sucralfate [Carafate -] 1 gm PO TID 03/07/19 Vital Signs: Vital Signs Period Temp Pulse Resp BP Sys/Rice Pulse Ox Last 24 Hr 97.6 F-98.8 F 70-80 18-20 93-122/45-70 100-100 Laboratory Last Values WBC 9.2 K/mm3 (4.0-10.0) 03/13/19 05:25 RBC 3.29 M/mm3 (3.60-5.2) L 03/13/19 05:25 Hgb 10.3 GM/dL (10.7-15.3) L 03/13/19 05:25 Hct 30.9 % (32.4-45.2) L 03/13/19 05:25 MCV 93.8 fl (80-96) 03/13/19 05:25 MCH 31.2 pg (25.7-33.7) 03/13/19 05:25 MCHC 33.3 g/dl (32.0-36.0) 03/13/19 05:25 RDW 16.4 % (11.6-15.6) H 03/13/19 05:25 Plt Count 224 K/MM3 (134-434) 03/13/19 05:25 MPV 9.4 fl (7.5-11.1) 03/13/19 05:25 Absolute Neuts (auto) 6.5 K/mm3 (1.5-8.0) 03/13/19 05:25 Neutrophils % 70.2 % (42.8-82.8) 03/13/19 05:25 Lymphocytes % 15.1 % (8-40) D 03/13/19 05:25 Monocytes % 10.5 % (3.8-10.2) H 03/13/19 05:25 Eosinophils % 3.5 % (0-4.5) D 03/13/19 05:25 Basophils % 0.7 % (0-2.0) 03/13/19 05:25 Nucleated RBC % 0 % (0-0) 03/13/19 05:25 Sodium 136 mmol/L (136-145) 03/13/19 05:25 Potassium 4.1 mmol/L (3.5-5.1) 03/13/19 05:25 Chloride 99 mmol/L (98-107) 03/13/19 05:25 Carbon Dioxide 31 mmol/L (21-32) 03/13/19 05:25 Anion Gap 6 MMOL/L (8-16) L 03/13/19 05:25 BUN 22.5 mg/dL (7-18) H 03/13/19 05:25 Creatinine 1.1 mg/dL (0.55-1.3) 03/13/19 05:25 Est GFR (CKD-EPI)AfAm 53.77 03/13/19 05:25 Est GFR (CKD-EPI)NonAf 46.39 03/13/19 05:25 Random Glucose 82 mg/dL (74-106) 03/13/19 05:25 Calcium 8.0 mg/dL (8.5-10.1) L 03/13/19 05:25 Phosphorus 3.5 mg/dL (2.5-4.9) 03/13/19 05:25 Magnesium 2.3 mg/dL (1.8-2.4) 03/13/19 05:25 Total Bilirubin 0.6 mg/dL (0.2-1) 03/13/19 05:25 AST 15 U/L (15-37) 03/13/19 05:25 ALT 18 U/L (13-61) 03/13/19 05:25 Alkaline Phosphatase 97 U/L (45-117) 03/13/19 05:25 Creatine Kinase 34 U/L (26-192) 03/12/19 14:35 Troponin I 0.02 ng/ml (0.00-0.05) 03/12/19 14:35 B-Natriuretic Peptide 10823.8 pg/ml (5-450) H 03/12/19 14:35 Total Protein 5.6 g/dl (6.4-8.2) L 03/13/19 05:25 Albumin 2.5 g/dl (3.4-5.0) L 03/13/19 05:25 Urine Color Yellow 03/12/19 15:45 Urine Appearance Clear 03/12/19 15:45 Urine pH 6.0 (5.0-8.0) 03/12/19 15:45 Ur Specific [place] 1.012 (1.010-1.035) 03/12/19 15:45 Urine Protein Negative (NEGATIVE) 03/12/19 15:45 Urine Glucose (UA) Negative (NEGATIVE) 03/12/19 15:45 Urine Ketones Negative (NEGATIVE) 03/12/19 15:45 Urine Blood Negative (NEGATIVE) 03/12/19 15:45 Urine Nitrite Negative (NEGATIVE) 03/12/19 15:45 Urine Bilirubin Negative (NEGATIVE) 03/12/19 15:45 Urine Urobilinogen 0.2 mg/dL (0.2-1.0) 03/12/19 15:45 Ur Leukocyte Esterase Negative (NEGATIVE) 03/12/19 15:45 Assessment/Plan CXR: clear lungs/pleura ECG 03/12 (#1): NSR, diffuse ST-Ts with prolonged QTc (computer measurement 499)- -no signif change vs prior 03/07 (QTc 514 then) #2: no change #3 (03/13): no signif change, QTc 510 tele: sinus, PVCs Acute diastolic chf, severe MR: -sx's likely predominantly/exclusively secondary to severe MR, given wt is unchanged vs prior discharge--i.e. no signif total body volume excess suspected -BNP 11K, from 13K during prior decompensated HF admits -responded well to lasix 80 iv bid last admit -family's care plan is being guided exclusively by pt's longtime belting cutter ( dr cam) however they have not yet made it back to his office to discuss goals of care, and make a definitive decision on alvarado-clip vs palliative care/ hospice--these appear to be the only two viable options at this point, given inability to keep her out of the hospital with lasix 80 po bid at home -will diurese with iv lasix here, and will encourage pt's dtr to have a definitive conversation with dr cam over the phone about her options PAF: -had AVN ablation and PPM in past, however has had rapid AF at times in hosp -developed rapid AF 02/12, required IV Metoprolol -cont amio (decrease to 100 qd, as she has been fully loaded--hope QTc will shorten to <500 msec on this dose, to allow to continue safely using this med. interaction with donepezil noted, however pt requires both of these meds for quality of life) -cont metoprolol 25 bid--tolerate SBP >80 -cont eliquis 2.5 bid--adjusted for age, weight VTach: -NSVT on tele -K/Mag per usual aggressive targets (08/09) -low dose BB as soft bp's allow hld: -cont home statin Progressive Cognitive decline: -Followed by Neuro as outpt
--- NOTE | 2019-03-13 16:39 | PN ---
Progress Note (short form) - Note Progress Note: HPI: Pt previously known to my service with ongoing admissions for volume overload, dyspnea, and orthopnea due to severe mitral regurgitation. Pt was to follow with her outpatient cordwood cutter helper who has been closely following her care alongside the cordwood cutter helper team here. Pt was unable to return to his office ( Dr. Hodge) and appointment was planned for later this month. Pt today feels slight dyspnea. Her discharge weight from previous admission was 127lbs with noted 126lbs today. No chest pain, palpitaitons, abdominal pain, cough, fever/ chills noted. Telemetry showing sinus rhythm without any notable alarms. Vital Signs Temperature 98.0 F 03/13/19 18:00 Pulse Rate 73 03/13/19 18:00 Respiratory Rate 18 03/13/19 18:00 Blood Pressure 101/48 L 03/13/19 18:00 O2 Sat by Pulse Oximetry (%) 100 03/13/19 09:00 PE: GEN: NAD, awake, alert, oriented x3 HEENT: NC/AT, DIMAS, sclera anicteric Neck: No JVD LUNG: CTA b/l, no wheezes appreciated CARD: RRR no murmurs ABD: Soft, NT/ND, normoactive BS, no guarding, EXT: No peripheral edema, strong DP pulses CBC, BMP 03/13/19 05:25 03/13/19 05:25 Hepatic Panel Total Bilirubin 0.6 mg/dL (0.2-1) 03/13/19 05:25 AST 15 U/L (15-37) 03/13/19 05:25 ALT 18 U/L (13-61) 03/13/19 05:25 Alkaline Phosphatase 97 U/L (45-117) 03/13/19 05:25 Albumin 2.5 g/dl (3.4-5.0) L 03/13/19 05:25 Active Medications Acetaminophen (Tylenol -) 650 mg PO Q6H PRN PRN Reason: PAIN LEVEL 4 - 6 Al Hydroxide/Mg Hydroxide (Mylanta Oral Suspension -) 30 ml PO PRN PRN PRN Reason: DYSPEPSIA Amiodarone HCl (Cordarone -) 100 mg PO DAILY [facility] Last Admin: 03/13/19 11:36 Dose: Not Given Apixaban (Eliquis -) 2.5 mg PO BID [facility] Last Admin: 03/13/19 09:51 Dose: 2.5 mg Atorvastatin Calcium (Lipitor -) 10 mg PO HS [facility] Last Admin: 03/12/19 21:43 Dose: 10 mg Cyanocobalamin (Vitamin B12 -) 2,000 mcg PO DAILY [facility] Last Admin: 03/13/19 09:51 Dose: 2,000 mcg Docusate Sodium (Colace -) 100 mg PO TID [facility] Last Admin: 03/13/19 13:03 Dose: Not Given Donepezil HCl (Aricept -) 10 mg PO DAILY [facility] Last Admin: 03/13/19 09:51 Dose: 10 mg Ferrous Sulfate (Feosol -) 325 mg PO DAILY [facility] Last Admin: 03/13/19 09:50 Dose: 325 mg Furosemide (Lasix Injection -) 40 mg IVPUSH BID@0600,1400 [facility] Last Admin: 03/13/19 14:03 Dose: 40 mg Lorazepam (Ativan -) 0.5 mg PO DAILY PRN PRN Reason: ANXIETY Last Admin: 03/12/19 21:44 Dose: 0.5 mg Memantine (Namenda -) 5 mg PO BID [facility] Last Admin: 03/13/19 09:51 Dose: 5 mg Metoprolol Succinate (Toprol Xl -) 25 mg PO BID [facility] Last Admin: 03/13/19 11:36 Dose: Not Given Mirtazapine (Remeron -) 15 mg PO HS [facility] Last Admin: 03/12/19 21:43 Dose: 15 mg Non-Formulary Medication (Magnesium Oxide 400) 40 mg PO BID [facility] Pantoprazole Sodium (Protonix -) 40 mg PO DAILY [facility] Last Admin: 03/13/19 09:51 Dose: 40 mg Potassium Chloride (K-Dur -) 40 meq PO DAILY [facility] Last Admin: 03/13/19 09:51 Dose: 40 meq Sucralfate (Carafate -) 1 gm PO TID [facility] Last Admin: 03/13/19 14:03 Dose: 1 gm Assessment and Plan: Acute on chronic diastolic heart failure Severe Mitral Regurgitation Paroxysmal Atrial Fibrillation s/p PPM ([employer] model #L331) Prolonged QTc Pulmonary HTN due to above Dementia Hypertension history HLD history Depression/Anxiety --Symptoms related to severe MR --Weight relatively unchanged without any notable volume overload --Continue Lasix 40mg IVP BID --Monitor daily weights and I&O's --Will need to discuss with daughter and Dr. Cam about pt's viable options : Mitral valve clipping vs. palliative care --Pt remains rate controlled with Afib --Due to QTc decreased Amiodarone to 100mg qdaily --Monitor Qtc; repeat ECG tomorrow AM --Continue Toprol XL 25mg BID --Continue Eliquis 2.5mg BID --Continue Lipitor 10mg HS --Continue Aricept 10mg qdaily, Namenda 5mg BID, REmeron 15mg HS --Side-effect profile reviewed especially in setting of Amiodarone, however pt gains quality of life with regiment --Monitor QTc as above --Ativan 0.5mg daily PRN for anxiety FEN: Fluids: Avoid; PO Electrolyte abnormalities: Kdur 40mEq daily to offset BID lasix Nutrition: PPX: DVT - already on Eliquis GI - already on Protonix 40mg qdaily and Carafate 1gm TID PO Dispo: Monitor Telemetry; will need to have discussion with daughter and Dr. Cam together; palliative to help facilitate Case discussed with Dr. Linda Abrams, DO - IM PGy-3
[2019-03-13] MEDS ORDERED: PT OWN MED DRAWER 7, Y5N ONE (21:46)
[2019-03-13] MEDS: MIRTAZAPINE 15 MG TABLET (FP) PO SCH (21:54)
[2019-03-13] MEDS: LORazepam 0.5 MG TABLET PO PRN (21:54)
[2019-03-13] MEDS: ATORVASTATIN CA 10 MG TABLET (FP) PO SCH (21:54)
[2019-03-14] MEDS: DOCUSATE SODIUM 100 MG CAPSULE (FP) PO SCH ×3 (06:01→21:35)
[2019-03-14] MEDS: FUROSEMIDE 40 MG/4 ML INJECTABLE VIAL IVPUSH SCH ×2 (06:01→14:01)
[2019-03-14] MEDS: SUCRALFATE 1 GM TABLET (FP) PO SCH ×3 (06:01→21:35)
[2019-03-14 07:00] LABS: HEMATOCRIT 32.2 % (32.4-45.2); HEMOGLOBIN 10.5 GM/dL (10.7-15.3); MCH 30.7 pg (25.7-33.7); MCHC 32.7 g/dl (32.0-36.0); MEAN CELL VOLUME 93.9 fl (80-96); PLATELET COUNT 244 K/MM3 (134-434); RBC 3.43 M/mm3 (3.60-5.2); RDW 16.3 % (11.6-15.6); WHITE BLOOD COUNT 10.3 K/mm3 (4.0-10.0)
[2019-03-14 07:28] LABS: ALBUMIN 2.6 g/dl (3.4-5.0); BILIRUBIN,TOTAL 0.6 mg/dL (0.2-1); BLOOD UREA NITROGEN 20.1 mg/dL (7-18); CALCIUM 8.4 mg/dL (8.5-10.1); CREATININE 1.1 mg/dL (0.55-1.3); MAGNESIUM 2.1 mg/dL (1.8-2.4); PHOSPHOROUS 3.4 mg/dL (2.5-4.9); POTASSIUM 4.3 mmol/L (3.5-5.1); TOT PROT 5.9 g/dl (6.4-8.2)
--- NOTE | 2019-03-14 08:04 | PN ---
Progress Note (short form) - Note Progress Note: HPI: Sleeping comfortably upon examination. Pt reports some dyspena. No fever/ chills, cough, CP, palpitations, abdominal pain. Telemetry showing sinus rhythm without any notable alarms. Vital Signs Temperature 98 F 03/14/19 09:00 Pulse Rate 72 03/14/19 09:00 Respiratory Rate 18 03/14/19 09:00 Blood Pressure 103/62 03/14/19 09:00 O2 Sat by Pulse Oximetry (%) 95 03/13/19 21:00 PE: GEN: NAD, awake, alert, oriented x3 HEENT: NC/AT, DIMAS, sclera anicteric Neck: No JVD LUNG: CTA b/l, no wheezes appreciated CARD: RRR no murmurs ABD: Soft, NT/ND, normoactive BS, no guarding, EXT: No peripheral edema, strong DP pulses CBC, BMP 03/14/19 05:30 03/14/19 05:30 Hepatic Panel Total Bilirubin 0.6 mg/dL (0.2-1) 03/14/19 05:30 AST 15 U/L (15-37) 03/14/19 05:30 ALT 18 U/L (13-61) 03/14/19 05:30 Alkaline Phosphatase 101 U/L (45-117) 03/14/19 05:30 Albumin 2.6 g/dl (3.4-5.0) L 03/14/19 05:30 Active Medications Acetaminophen (Tylenol -) 650 mg PO Q6H PRN PRN Reason: PAIN LEVEL 4 - 6 Al Hydroxide/Mg Hydroxide (Mylanta Oral Suspension -) 30 ml PO PRN PRN PRN Reason: DYSPEPSIA Amiodarone HCl (Cordarone -) 100 mg PO DAILY [facility] Last Admin: 03/14/19 09:42 Dose: 100 mg Apixaban (Eliquis -) 2.5 mg PO BID [facility] Last Admin: 03/14/19 09:41 Dose: 2.5 mg Atorvastatin Calcium (Lipitor -) 10 mg PO HS [facility] Last Admin: 03/13/19 21:54 Dose: 10 mg Cyanocobalamin (Vitamin B12 -) 2,000 mcg PO DAILY [facility] Last Admin: 03/14/19 09:41 Dose: 2,000 mcg Docusate Sodium (Colace -) 100 mg PO TID [facility] Last Admin: 03/14/19 06:01 Dose: Not Given Donepezil HCl (Aricept -) 10 mg PO DAILY [facility] Last Admin: 03/14/19 09:43 Dose: 10 mg Ferrous Sulfate (Feosol -) 325 mg PO DAILY [facility] Last Admin: 03/14/19 09:42 Dose: 325 mg Furosemide (Lasix Injection -) 40 mg IVPUSH BID@0600,1400 [facility] Last Admin: 03/14/19 06:01 Dose: 40 mg Lorazepam (Ativan -) 0.5 mg PO DAILY PRN PRN Reason: ANXIETY Last Admin: 03/13/19 21:54 Dose: 0.5 mg Memantine (Namenda -) 5 mg PO BID [facility] Last Admin: 03/14/19 09:42 Dose: 5 mg Metoprolol Succinate (Toprol Xl -) 25 mg PO BID [facility] Last Admin: 03/14/19 09:42 Dose: 25 mg Mirtazapine (Remeron -) 15 mg PO HS [facility] Last Admin: 03/13/19 21:54 Dose: 15 mg Non-Formulary Medication (Magnesium Oxide 400) 40 mg PO BID [facility] Pantoprazole Sodium (Protonix -) 40 mg PO DAILY [facility] Last Admin: 03/14/19 09:41 Dose: 40 mg Potassium Chloride (K-Dur -) 40 meq PO DAILY [facility] Last Admin: 03/14/19 09:41 Dose: 40 meq Sucralfate (Carafate -) 1 gm PO TID [facility] Last Admin: 03/14/19 06:01 Dose: 1 gm Assessment and Plan: Acute on chronic diastolic heart failure Severe Mitral Regurgitation Paroxysmal Atrial Fibrillation s/p PPM ([employer] model #L331) Prolonged QTc Pulmonary HTN due to above Dementia Hypertension history HLD history Depression/Anxiety --Symptoms related to severe MR --Weight down 1kg today --Continue Lasix 40mg IVP BID --Monitor daily weights and I&O's --Will need to discuss with daughter and Dr. Cam about pt's viable options : Mitral valve clipping vs. palliative care --Pt remains rate controlled with Afib --Due to QTc decreased Amiodarone to 100mg qdaily --Monitor Qtc; repeat ECG today; will f/u regarding Qtc (11/4/19 510ms) --Continue Toprol XL 25mg BID --Continue Eliquis 2.5mg BID --Continue Lipitor 10mg HS --Continue Aricept 10mg qdaily, Namenda 5mg BID, REmeron 15mg HS --Side-effect profile reviewed especially in setting of Amiodarone, however pt gains quality of life with regiment --Monitor QTc as above --Ativan 0.5mg daily PRN for anxiety FEN: Fluids: Avoid; PO Electrolyte abnormalities: Kdur 40mEq daily to offset BID lasix Nutrition: Sodium controlled PPX: DVT - already on Eliquis GI - already on Protonix 40mg qdaily and Carafate 1gm TID PO Dispo: Monitor Telemetry; will need to have discussion with daughter and Dr. Cam together; palliative to help facilitate Case discussed with Dr. Linda Abrams, DO - IM PGy-3
--- NOTE | 2019-03-14 09:23 | EKG ---
Test Reason : Blood Pressure : / mmHG Vent. Rate : 073 BPM Atrial Rate : 073 BPM P-R Int : 160 ms QRS Dur : 098 ms QT Int : 472 ms P-R-T Axes : 048 025 -05 degrees QTc Int : 519 ms SINUS RHYTHM WITH OCCASIONAL PREMATURE VENTRICULAR COMPLEXES POSSIBLE LEFT ATRIAL ENLARGEMENT NONSPECIFIC ST AND T WAVE ABNORMALITY PROLONGED QT ABNORMAL ECG Confirmed by MD Anton Edward ([id number]) on 03/14/2019 9:22:59 AM Referred By: DOROTA TORRES DR Confirmed By:Qamar Anton MD
[2019-03-14] MEDS ORDERED: PT OWN MED DRAWER 7, Y5N ONE (09:28)
[2019-03-14] MEDS: POTASSIUM CHLORIDE TABS 20 MEQ TABLET.ER (FP) PO SCH (09:41)
[2019-03-14] MEDS: CYANOCOBALAMIN 1,000 MCG TABLET (FP) PO SCH (09:41)
[2019-03-14] MEDS: APIXABAN 2.5 MG TABLET PO SCH ×2 (09:41→21:35)
[2019-03-14] MEDS: PANTOPRAZOLE 40 MG TABLET (FP) PO SCH (09:41)
[2019-03-14] MEDS: FERROUS SO4 325 MG TABLET (FP) PO SCH (09:42)
[2019-03-14] MEDS: MEMANTINE HCL 10 MG TABLET (FP) PO SCH ×2 (09:42→21:35)
[2019-03-14] MEDS: AMIODARONE HCL 200 MG TABLET (FP) PO SCH (09:42)
[2019-03-14] MEDS: metoPROLOL SUCCINATE 25 MG TAB.SR.24H (FP) PO SCH ×2 (09:42→21:35)
[2019-03-14] MEDS: DONEPEZIL HCL 10 MG TABLET (FP) PO SCH (09:43)
--- NOTE | 2019-03-14 11:35 | PN ---
Teaching Attending Note Name of Resident: Jose Abrams ATTENDING PHYSICIAN STATEMENT I saw and evaluated the patient. I reviewed the resident's note and discussed the case with the resident. I agree with the resident's findings and plan as documented. SUBJECTIVE: Patient reports some SOB with exertion. OBJECTIVE: Vital Signs Period Temp Pulse Resp BP Sys/Rice Pulse Ox Last 24 Hr 97.8 F-98.2 F 72-76 18-20 98-112/48-62 95 HEART: S1S2, RRR, (+) 2/6 SM LUNGS: Clear ABDOMEN: Soft, non-tender, non-distended, normal BS EXTREMITIES: No edema Laboratory Results - last 24 hr 03/14/19 03/14/19 05:30 05:30 WBC 10.3 H RBC 3.43 L Hgb 10.5 L Hct 32.2 L MCV 93.9 MCH 30.7 MCHC 32.7 RDW 16.3 H Plt Count 244 MPV 10.0 Sodium 135 L Potassium 4.3 Chloride 98 Carbon Dioxide 30 Anion Gap 7 L BUN 20.1 H Creatinine 1.1 Est GFR (CKD-EPI)AfAm 53.77 Est GFR (CKD-EPI)NonAf 46.39 Random Glucose 85 Calcium 8.4 L Phosphorus 3.4 Magnesium 2.1 Total Bilirubin 0.6 AST 15 ALT 18 Alkaline Phosphatase 101 Total Protein 5.9 L Albumin 2.6 L Current Medications Generic Name Dose Route Start Last Admin Trade Name Freq PRN Reason Stop Dose Admin Acetaminophen 650 mg 03/12/19 17:33 Tylenol - PO Q6H PRN PAIN LEVEL 4 - 6 Al Hydroxide/Mg Hydroxide 30 ml 03/12/19 17:31 Mylanta Oral Suspension - PO PRN PRN DYSPEPSIA Amiodarone HCl 100 mg 03/13/19 10:15 03/14/19 09:42 Cordarone - PO 100 mg DAILY [facility] Administration Apixaban 2.5 mg 03/12/19 22:00 03/14/19 09:41 Eliquis - PO 2.5 mg BID [facility] Administration Atorvastatin Calcium 10 mg 03/12/19 22:00 03/13/19 21:54 Lipitor - PO 10 mg HS [facility] Administration Cyanocobalamin 2,000 mcg 03/13/19 10:00 03/14/19 09:41 Vitamin B12 - PO 2,000 mcg DAILY [facility] Administration Docusate Sodium 100 mg 03/12/19 22:00 03/14/19 06:01 Colace - PO Not Given TID [facility] Donepezil HCl 10 mg 03/13/19 10:00 03/14/19 09:43 Aricept - PO 10 mg DAILY [facility] Administration Ferrous Sulfate 325 mg 03/13/19 10:00 03/14/19 09:42 Feosol - PO 325 mg DAILY [facility] Administration Furosemide 40 mg 03/13/19 06:00 03/14/19 06:01 Lasix Injection - IVPUSH 40 mg BID@0600,1400 [facility] Administration Lorazepam 0.5 mg 03/12/19 17:31 03/13/19 21:54 Ativan - PO 0.5 mg DAILY PRN Administration ANXIETY Memantine 5 mg 03/12/19 22:00 03/14/19 09:42 Namenda - PO 5 mg BID [facility] Administration Metoprolol Succinate 25 mg 03/13/19 10:15 03/14/19 09:42 Toprol Xl - PO 25 mg BID [facility] Administration Mirtazapine 15 mg 03/12/19 22:00 03/13/19 21:54 Remeron - PO 15 mg HS [facility] Administration Non-Formulary Medication 40 mg 03/12/19 22:00 Magnesium Oxide 400 PO BID [facility] Pantoprazole Sodium 40 mg 03/13/19 10:00 03/14/19 09:41 Protonix - PO 40 mg DAILY [facility] Administration Potassium Chloride 40 meq 03/13/19 10:00 03/14/19 09:41 K-Dur - PO 40 meq DAILY [facility] Administration Sucralfate 1 gm 03/12/19 22:00 03/14/19 06:01 Carafate - PO 1 gm TID [facility] Administration ASSESSMENT AND PLAN: This is an 83 year old woman with a history of chronic diastolic heart failure, PAF, AV node ablation, pacemaker, HTN, hyperlipidemia, severe mitral regurgitation, moderate to severe tricuspid regurgitation, severe pulmonary HTN , depression, anxiety, dementia, GERD, frequent UTIs who presented to the ED with shortness of breath. 1. Acute on chronic diastolic heart failure - Continue Lasix IV - Monitor I&O, weight 2. Dementia - Continue Namenda, Aricept, Remeron 3. GERD - Continue Protonix, Carafate 4. Depression and anxiety - Continue Remeron, Ativan as needed 5. Paroxysmal atrial fibrillation - History of AV node ablation, pacemaker placement - Continue Toprol XL, Amiodarone, Eliquis 6. History of NSVT - Continue Toprol XL - Keep Mg>2.0, K>4.0 7. Severe mitral regurgitation 8. Moderate to severe tricuspid regurgitation 9. Severe pulmonary HTN 10. HTN - Continue Toprol XL, Lasix 11. Hyperlipidemia - Continue Lipitor 12. Hypokalemia - Improved
--- NOTE | 2019-03-14 11:43 | PN ---
Progress Note (short form) - Note Progress Note: s: stable sob, feels tired. no chest pain, palps, dizziness, dyspnea. Vital Signs Period Temp Pulse Resp BP Sys/Rice Pulse Ox Last 24 Hr 97.8 F-98.2 F 72-76 18-20 98-112/48-62 95 NAD nl s1, s2, rrr CTAB soft, nt, nd +bs no edema no jaundice, diaphoresis aox3 not agitated Assessment/Plan CXR: clear lungs/pleura ECG 03/12 (#1): NSR, diffuse ST-Ts with prolonged QTc (computer measurement 499)- -no signif change vs prior 03/07 (QTc 514 then) #2: no change #3 (03/13): no signif change, QTc 510 tele: sinus, PVCs, AP Acute diastolic chf, severe MR: -sx's likely predominantly/exclusively secondary to severe MR, given wt is unchanged vs prior discharge--i.e. no signif total body volume excess suspected -BNP 11K, from 13K during prior decompensated HF admits -responded well to lasix 80 iv bid last admit -family's care plan is being guided exclusively by pt's longtime photogrammetric tech ( dr cam) however they have not yet made it back to his office to discuss goals of care, and make a definitive decision on alvarado-clip vs palliative care/ hospice--these appear to be the only two viable options at this point, given inability to keep her out of the hospital with lasix 80 po bid at home - attempted to call patient's daughter, left message - note plan to have discussion with palliative care, daughter and Dr. Cam -continue IV lasix for now PAF: -had AVN ablation and PPM in past, however has had rapid AF at times in hosp -developed rapid AF 02/12, required IV Metoprolol -cont amio (decreased to 100 qd, as she has been fully loaded--hope QTc will shorten to <500 msec on this dose, to allow to continue safely using this med. interaction with donepezil noted, however pt requires both of these meds for quality of life) -cont metoprolol 25 bid--tolerate SBP >80 -cont eliquis 2.5 bid--adjusted for age, weight VTach: -NSVT on tele -K/Mag per usual aggressive targets (08/09) -low dose BB as soft bp's allow hld: -cont home statin Progressive Cognitive decline: -Followed by Neuro as outpt
[2019-03-14] MEDS: ATORVASTATIN CA 10 MG TABLET (FP) PO SCH (21:35)
[2019-03-14] MEDS: MIRTAZAPINE 15 MG TABLET (FP) PO SCH (21:35)
[2019-03-14] MEDS: LORazepam 0.5 MG TABLET PO PRN (21:35)
[2019-03-15] MEDS: SUCRALFATE 1 GM TABLET (FP) PO SCH ×3 (06:17→21:55)
[2019-03-15] MEDS: FUROSEMIDE 40 MG/4 ML INJECTABLE VIAL IVPUSH SCH (06:20)
[2019-03-15] MEDS: DOCUSATE SODIUM 100 MG CAPSULE (FP) PO SCH ×3 (06:20→21:56)
[2019-03-15 07:37] LABS: BLOOD UREA NITROGEN 18.4 mg/dL (7-18); CALCIUM 8.1 mg/dL (8.5-10.1); CREATININE 1.1 mg/dL (0.55-1.3); MAGNESIUM 2.1 mg/dL (1.8-2.4); POTASSIUM 3.8 mmol/L (3.5-5.1)
[2019-03-15] MEDS: FERROUS SO4 325 MG TABLET (FP) PO SCH (10:06)
[2019-03-15] MEDS: AMIODARONE HCL 200 MG TABLET (FP) PO SCH (10:06)
[2019-03-15] MEDS: POTASSIUM CHLORIDE TABS 20 MEQ TABLET.ER (FP) PO SCH (10:06)
[2019-03-15] MEDS: MAGNESIUM OXIDE 400 MG TABLET (FP) PO SCH ×2 (10:07→21:56)
[2019-03-15] MEDS: MEMANTINE HCL 10 MG TABLET (FP) PO SCH ×2 (10:07→21:56)
[2019-03-15] MEDS: PANTOPRAZOLE 40 MG TABLET (FP) PO SCH (10:07)
[2019-03-15] MEDS: CYANOCOBALAMIN 1,000 MCG TABLET (FP) PO SCH (10:07)
[2019-03-15] MEDS: APIXABAN 2.5 MG TABLET PO SCH ×2 (10:07→21:56)
[2019-03-15] MEDS: metoPROLOL SUCCINATE 25 MG TAB.SR.24H (FP) PO SCH ×2 (10:08→21:56)
[2019-03-15] MEDS: DONEPEZIL HCL 10 MG TABLET (FP) PO SCH (10:08)
--- NOTE | 2019-03-15 10:48 | PN ---
Progress Note (short form) - Note Progress Note: s: stable fatigue. no chest pain, palps, dizziness, dyspnea. Vital Signs Period Temp Pulse Resp BP Sys/Rice Pulse Ox Last 24 Hr 97.5 F-98.4 F 67-76 18-20 94-105/50-60 95 NAD nl s1, s2, rrr CTAB soft, nt, nd +bs no edema no jaundice, diaphoresis aox3 not agitated Assessment/Plan CXR: clear lungs/pleura ECG 03/12 (#1): NSR, diffuse ST-Ts with prolonged QTc (computer measurement 499)- -no signif change vs prior 03/07 (QTc 514 then) #2: no change #3 (03/13): no signif change, QTc 510 tele: sinus, PVCs Acute diastolic chf, severe MR: -sx's likely predominantly/exclusively secondary to severe MR, given wt is unchanged vs prior discharge--i.e. no signif total body volume excess suspected -BNP 11K, from 13K during prior decompensated HF admits -stable weight, appears euvolemic, BUN/Cr stable, off O2 - will dc IV lasix, restart home PO lasix 80 mg BID - d/w daughter yesterday by phone - notes strong anxiety component, even at home O2 sat normal, appeared comfortable and complained of dyspnea as she became more anxious - daughter would like to follow up with PCP, logistic manager Dr. Cam as outpatient to discuss goals of care - can dc tele PAF: -had AVN ablation and PPM in past, however has had rapid AF at times in hosp -developed rapid AF 02/12, required IV Metoprolol -cont amio (decreased to 100 qd, as she has been fully loaded--hope QTc will shorten to <500 msec on this dose, to allow to continue safely using this med. interaction with donepezil noted, however pt requires both of these meds for quality of life) -cont metoprolol 25 bid--tolerate SBP >80 -cont eliquis 2.5 bid--adjusted for age, weight VTach: -NSVT on tele -K/Mag per usual aggressive targets (08/09) -low dose BB as soft bp's allow hld: -cont home statin Progressive Cognitive decline: -Followed by Neuro as outpt
[2019-03-15] MEDS ORDERED: PT OWN MED DRAWER 7, Y5N ONE ×2 (13:32→21:38)
[2019-03-15] MEDS: FUROSEMIDE 40 MG TABLET (FP) PO SCH (13:35)
--- NOTE | 2019-03-15 14:00 | DS ---
Physical Exam: SUBJECTIVE: No complaints. Pt slightly anxious. Spoke with daughter regarding pt 's anxiety and was hoping she can have day-time coverage for anxiety. OBJECTIVE: Vital Signs Period Temp Pulse Resp BP Sys/Rice Pulse Ox Last 24 Hr 97.5 F-98.4 F 67-76 16-20 94-105/50-60 95-95 PHYSICAL EXAM GEN: NAD, awake, alert, oriented x3 HEENT: NC/AT, DIMAS, sclera anicteric Neck: No JVD LUNG: CTA b/l, no wheezes appreciated CARD: RRR no murmurs ABD: Soft, NT/ND, normoactive BS, no guarding, EXT: No peripheral edema, strong DP pulses LABS Laboratory Results - last 24 hr 03/15/19 06:10 Sodium 135 L Potassium 3.8 Chloride 97 L Carbon Dioxide 30 Anion Gap 8 BUN 18.4 H Creatinine 1.1 Est GFR (CKD-EPI)AfAm 53.77 Est GFR (CKD-EPI)NonAf 46.39 Random Glucose 106 Calcium 8.1 L Magnesium 2.1 Active Medications Acetaminophen (Tylenol -) 650 mg PO Q6H PRN PRN Reason: PAIN LEVEL 4 - 6 Al Hydroxide/Mg Hydroxide (Mylanta Oral Suspension -) 30 ml PO PRN PRN PRN Reason: DYSPEPSIA Amiodarone HCl (Cordarone -) 100 mg PO DAILY [facility] Last Admin: 03/15/19 10:06 Dose: 100 mg Apixaban (Eliquis -) 2.5 mg PO BID [facility] Last Admin: 03/15/19 21:56 Dose: 2.5 mg Atorvastatin Calcium (Lipitor -) 10 mg PO HS [facility] Last Admin: 03/15/19 21:56 Dose: 10 mg Cyanocobalamin (Vitamin B12 -) 2,000 mcg PO DAILY [facility] Last Admin: 03/15/19 10:07 Dose: 2,000 mcg Docusate Sodium (Colace -) 100 mg PO TID [facility] Last Admin: 03/15/19 21:56 Dose: Not Given Donepezil HCl (Aricept -) 10 mg PO DAILY [facility] Last Admin: 03/15/19 10:08 Dose: 10 mg Ferrous Sulfate (Feosol -) 325 mg PO DAILY [facility] Last Admin: 03/15/19 10:06 Dose: 325 mg Furosemide (Lasix -) 80 mg PO BID@0600,1400 [facility] Last Admin: 03/15/19 13:35 Dose: 80 mg Magnesium Oxide (Mag-Ox -) 400 mg PO BID [facility] Last Admin: 03/15/19 21:56 Dose: 400 mg Memantine (Namenda -) 5 mg PO BID [facility] Last Admin: 03/15/19 21:56 Dose: 5 mg Metoprolol Succinate (Toprol Xl -) 25 mg PO BID [facility] Last Admin: 03/15/19 21:56 Dose: 25 mg Mirtazapine (Remeron -) 15 mg PO HS [facility] Last Admin: 03/15/19 21:56 Dose: 15 mg Pantoprazole Sodium (Protonix -) 40 mg PO DAILY [facility] Last Admin: 03/15/19 10:07 Dose: 40 mg Potassium Chloride (K-Dur -) 40 meq PO DAILY [facility] Last Admin: 03/15/19 10:06 Dose: 40 meq Sucralfate (Carafate -) 1 gm PO TID [facility] Last Admin: 03/15/19 21:55 Dose: 1 gm IMAGING: CXR: No acute pathology Echocardiogram: Interpretation Summary The left ventricle is normal in size. There is mild concentric left ventricular hypertrophy. Left ventricular systolic function is normal. No regional wall motion abnormalities noted. Ejection Fraction = 60-65%. The right ventricular systolic function is normal. The left atrial size is normal. Right atrial size is normal. There is mild mitral annular calcification. There is mild mitral valve thickening. Anterior mitral valve leaflet is tethered There is severe mitral regurgitation. There is moderate tricuspid regurgitation. Mild aortic regurgitation. Mild pulmonic valvular regurgitation. There is no pericardial effusion. There is a pacemaker lead in the right ventricle. There is mild aortic sclerosis. Pulmonary artery systolic pressure is at least 85 mmHg if RA pressure is assumed 3 mmHg HOSPITAL COURSE: Date of Admission:03/12/19 Date of Discharge: 03/15/19 Pt was admitted on 03/12/19 due to shortness of breath noted at her living center. She has had multiple admissions 2/2 to shortness of breath due to severe MR contributing to the heart failure. Upon arrival pt was continued on IV Lasix for one day, however daily weights showed she had not much difference in discharge weight compared to previous. Cardiology assessed patient and it was determined that her shortness of breath was mostly anxiety related. In addition, QTc was noted to increase to 512ms and amiodarone was decreased down to Amiodarone 100mg qdaily. Pt is being discharged in stable condition with no edema at this point. Dry weight is ~57kg. Pt is to have appointment tomorrow with one of her outpatient doctors to coordinate care between relatively palliative vs. mitral valve clipping. Minutes to complete discharge: 33 Discharge Summary Problems reviewed: Yes Reason For Visit: SHORTNESS OF BREATH Current Active Problems Anxiety and depression (Acute) CHF (congestive heart failure) (Acute) Dementia (Acute) GERD (gastroesophageal reflux disease) (Acute) Prophylactic measure (Acute) Weakness (Acute) Mitral valve regurgitation (Chronic) Condition: Stable - Instructions Diet, Activity, Other Instructions: You were seen here for your shortness of breath. Your heart was controlled and you did not have any new fluid. You were seen by cardiology here and they spoke with Dr. Cam regarding your condition. He will follow-up with you at an appointment tomorrow MEDICATIONS: Please reduce the dose of Amiodarone now at 100mg daily Otherwise continue the rest of your home medications as you have been FOLLOW-UP: Please follow-up with Dr. Cam tomorrow for your appointment Please follow-up with your primary care physician, Dr. Albert, once you see Dr. Cam tomorrow Referrals: Guerrero Albert [Primary Care Provider] - Austin Cam [Non Staff, Medical] - 03/16/19 Disposition: HOME - Home Medications Comprehensive Discharge Medication List: Ambulatory Orders Apixaban [Eliquis] 2.5 mg PO BID 03/07/19 Atorvastatin Ca [Lipitor] 10 mg PO HS 03/07/19 Cyanocobalamin (Vitamin B-12) [Vitamin B-12] 2,000 mcg PO DAILY 03/07/19 Docusate Sodium [Colace] 100 mg PO TID 03/07/19 Donepezil HCl [Aricept] 10 mg PO DAILY 03/07/19 Ferrous Sulfate 325 mg PO DAILY 03/07/19 Furosemide [Lasix] 40 mg PO BID 03/07/19 Lorazepam [Ativan] 0.5 mg PO PRN PRN 03/07/19 Mag Hydrox/Al Hydrox/Simeth [Mylanta Oral Suspension -] 30 ml PO PRN PRN Magnesium Oxide 400 40 mg PO BID 03/07/19 Memantine HCl [Namenda -] 5 mg PO BID 03/07/19 Metoprolol Succinate [Toprol Xl] 25 mg PO DAILY 03/07/19 Mirtazapine [Remeron -] 15 mg PO HS 03/07/19 Pantoprazole Sodium [Protonix] 40 mg PO DAILY 03/07/19 Potassium Chloride [Klor-Con] 40 meq PO DAILY 03/07/19 Sucralfate [Carafate -] 1 gm PO TID 03/07/19 Amiodarone HCl [Cordarone -] 100 mg PO DAILY tablet 03/15/19 This patient is new to me today: No Emergency Visit: Yes ED Registration Date: 03/12/19 Care time: The patient presented to the Emergency Department on the above date and was hospitalized for further evaluation of their emergent condition. Critical Care patient: No - Discharge Referral Referred to [facility] Med P.C.: No ATTENDING PHYSICIAN STATEMENT I saw and evaluated the patient. I reviewed the resident's note and discussed the case with the resident. I agree with the resident's findings and plan as documented. SUBJECTIVE: OBJECTIVE: ASSESSMENT AND PLAN:
--- NOTE | 2019-03-15 15:46 | PN ---
Teaching Attending Note Name of Resident: Jose Abrams ATTENDING PHYSICIAN STATEMENT I saw and evaluated the patient. I reviewed the resident's note and discussed the case with the resident. I agree with the resident's findings and plan as documented. SUBJECTIVE: Patient denies SOB. OBJECTIVE: Vital Signs Period Temp Pulse Resp BP Sys/Rice Pulse Ox Last 24 Hr 97.5 F-98.4 F 68-76 16-20 94-105/50-60 95-95 HEART: S1S2, RRR, (+) 2/6 SM LUNGS: Clear ABDOMEN: Soft, non-tender, non-distended, normal BS EXTREMITIES: No edema Laboratory Results - last 24 hr 03/15/19 06:10 Sodium 135 L Potassium 3.8 Chloride 97 L Carbon Dioxide 30 Anion Gap 8 BUN 18.4 H Creatinine 1.1 Est GFR (CKD-EPI)AfAm 53.77 Est GFR (CKD-EPI)NonAf 46.39 Random Glucose 106 Calcium 8.1 L Magnesium 2.1 Current Medications Generic Name Dose Route Start Last Admin Trade Name Freq PRN Reason Stop Dose Admin Acetaminophen 650 mg 03/12/19 17:33 Tylenol - PO Q6H PRN PAIN LEVEL 4 - 6 Al Hydroxide/Mg Hydroxide 30 ml 03/12/19 17:31 Mylanta Oral Suspension - PO PRN PRN DYSPEPSIA Amiodarone HCl 100 mg 03/13/19 10:15 03/15/19 10:06 Cordarone - PO 100 mg DAILY [facility] Administration Apixaban 2.5 mg 03/12/19 22:00 03/15/19 10:07 Eliquis - PO 2.5 mg BID [facility]TY Administration Atorvastatin Calcium 10 mg 03/12/19 22:00 03/14/19 21:35 Lipitor - PO 10 mg HS [facility]TY Administration Cyanocobalamin 2,000 mcg 03/13/19 10:00 03/15/19 10:07 Vitamin B12 - PO 2,000 mcg DAILY [facility] Administration Docusate Sodium 100 mg 03/12/19 22:00 03/15/19 13:36 Colace - PO Not Given TID [facility]TY Donepezil HCl 10 mg 03/13/19 10:00 03/15/19 10:08 Aricept - PO 10 mg DAILY [facility] Administration Ferrous Sulfate 325 mg 03/13/19 10:00 03/15/19 10:06 Feosol - PO 325 mg DAILY [facility] Administration Furosemide 80 mg 03/15/19 14:00 03/15/19 13:35 Lasix - PO 80 mg BID@0600,1400 [facility] Administration Lorazepam 0.5 mg 03/12/19 17:31 03/14/19 21:35 Ativan - PO 0.5 mg DAILY PRN Administration ANXIETY Magnesium Oxide 400 mg 03/15/19 10:00 03/15/19 10:07 Mag-Ox - PO 400 mg BID [facility] Administration Memantine 5 mg 03/12/19 22:00 03/15/19 10:07 Namenda - PO 5 mg BID [facility] Administration Metoprolol Succinate 25 mg 03/13/19 10:15 03/15/19 10:08 Toprol Xl - PO 25 mg BID [facility] Administration Mirtazapine 15 mg 03/12/19 22:00 03/14/19 21:35 Remeron - PO 15 mg HS [facility] Administration Pantoprazole Sodium 40 mg 03/13/19 10:00 03/15/19 10:07 Protonix - PO 40 mg DAILY [facility] Administration Potassium Chloride 40 meq 03/13/19 10:00 03/15/19 10:06 K-Dur - PO 40 meq DAILY [facility] Administration Sucralfate 1 gm 03/12/19 22:00 03/15/19 13:35 Carafate - PO 1 gm TID [facility] Administration ASSESSMENT AND PLAN: This is an 83 year old woman with a history of chronic diastolic heart failure, PAF, AV node ablation, pacemaker, HTN, hyperlipidemia, severe mitral regurgitation, moderate to severe tricuspid regurgitation, severe pulmonary HTN , depression, anxiety, dementia, GERD, frequent UTIs who presented to the ED with shortness of breath. 1. Acute on chronic diastolic heart failure - Improved - Change Lasix to PO 2. Dementia - Continue Namenda, Aricept, Remeron 3. GERD - Continue Protonix, Carafate 4. Depression and anxiety - Continue Remeron, Ativan as needed 5. Paroxysmal atrial fibrillation - History of AV node ablation, pacemaker placement - Continue Toprol XL, Amiodarone, Eliquis 6. History of NSVT - Continue Toprol XL - Keep Mg>2.0, K>4.0 7. Severe mitral regurgitation 8. Moderate to severe tricuspid regurgitation 9. Severe pulmonary HTN 10. HTN - Continue Toprol XL, Lasix 11. Hyperlipidemia - Continue Lipitor 12. Hypokalemia - Improved 13. Disposition - Ok for discharge home today with follow up with PCP and cardiology
[2019-03-15] MEDS: MIRTAZAPINE 15 MG TABLET (FP) PO SCH (21:56)
[2019-03-15] MEDS: ATORVASTATIN CA 10 MG TABLET (FP) PO SCH (21:56)
[2019-03-16] MEDS: SUCRALFATE 1 GM TABLET (FP) PO SCH (06:40)
[2019-03-16] MEDS: FUROSEMIDE 40 MG TABLET (FP) PO SCH (06:40)
[2019-03-16] MEDS: DOCUSATE SODIUM 100 MG CAPSULE (FP) PO SCH (06:40)
--- NOTE | 2019-03-16 08:51 | PN ---
Teaching Attending Note Name of Resident: Jose Abrams ATTENDING PHYSICIAN STATEMENT I saw and evaluated the patient. I reviewed the resident's note and discussed the case with the resident. I agree with the resident's findings and plan as documented. SUBJECTIVE: OBJECTIVE: Vital Signs Temperature 97.7 F 03/16/19 06:00 Pulse Rate 64 03/16/19 06:00 Respiratory Rate 18 03/16/19 06:00 Blood Pressure 102/59 L 03/16/19 06:00 O2 Sat by Pulse Oximetry (%) 100 03/15/19 21:00 General: Elderly woman, comfortable, not in distress HEENT; mucous membranes moist, no anemia, no jaundice, PERRLA, no nystagmus Neck: No JVD, supple, no bruit, thyroid palpably normal, normal carotid pulsations. Chest: Nontender, clear to auscultation bilaterally CVS: S1-S2 regular/irregular no murmur/gallop/rub Abdomen: Nondistended, soft, bowel sounds present. 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 1. Acute on chronic diastolic heart failure - Improved - Change Lasix to PO 2. Dementia - Continue Namenda, Aricept, Remeron 3. GERD - Continue Protonix, Carafate 4. Depression and anxiety - Continue Remeron, Ativan as needed 5. Paroxysmal atrial fibrillation - History of AV node ablation, pacemaker placement - Continue Toprol XL, Amiodarone, Eliquis 6. History of NSVT - Continue Toprol XL - Keep Mg>2.0, K>4.0 7. Severe mitral regurgitation 8. Moderate to severe tricuspid regurgitation 9. Severe pulmonary HTN 10. HTN - Continue Toprol XL, Lasix 11. Hyperlipidemia - Continue Lipitor 12. Hypokalemia - Improved 13. Disposition - Ok for discharge home today with follow up with PCP and cardiology
[2019-03-16] MEDS: AMIODARONE HCL 200 MG TABLET (FP) PO SCH (09:03)
[2019-03-16] MEDS: MEMANTINE HCL 10 MG TABLET (FP) PO SCH (09:03)
[2019-03-16] MEDS: MAGNESIUM OXIDE 400 MG TABLET (FP) PO SCH (09:04)
[2019-03-16] MEDS: metoPROLOL SUCCINATE 25 MG TAB.SR.24H (FP) PO SCH (09:04)
[2019-03-16] MEDS: CYANOCOBALAMIN 1,000 MCG TABLET (FP) PO SCH (09:04)
[2019-03-16] MEDS: PANTOPRAZOLE 40 MG TABLET (FP) PO SCH (09:04)
[2019-03-16] MEDS: APIXABAN 2.5 MG TABLET PO SCH (09:04)
[2019-03-16] MEDS: DONEPEZIL HCL 10 MG TABLET (FP) PO SCH (09:04)
[2019-03-16] MEDS: FERROUS SO4 325 MG TABLET (FP) PO SCH (09:04)
[2019-03-16] MEDS: POTASSIUM CHLORIDE TABS 20 MEQ TABLET.ER (FP) PO SCH (09:05)
[2019-03-16 09:07] VITALS: BP 114/68; PULSE 70; TEMP 98
--- NOTE | 2019-03-16 11:05 | PN ---
Progress Note (short form) - Note Progress Note: s: stable fatigue. no chest pain, palps, dizziness, dyspnea. Vital Signs Period Temp Pulse Resp BP Sys/Rice Pulse Ox Last 24 Hr 97.4 F-98.2 F 60-73 16-20 95-114/52-68 98-100 NAD nl s1, s2, rrr CTAB soft, nt, nd +bs no edema no jaundice, diaphoresis aox3 not agitated CBC, BMP 03/14/19 05:30 03/15/19 06:10 Assessment/Plan CXR: clear lungs/pleura ECG 03/12 (#1): NSR, diffuse ST-Ts with prolonged QTc (computer measurement 499)- -no signif change vs prior 03/07 (QTc 514 then) #2: no change #3 (03/13): no signif change, QTc 510 tele: sinus Acute diastolic chf, severe MR: -sx's likely predominantly/exclusively secondary to severe MR, given wt is unchanged vs prior discharge--i.e. no signif total body volume excess suspected -BNP 11K, from 13K during prior decompensated HF admits -stable weight, appears euvolemic, BUN/Cr stable, off O2 - will dc IV lasix, restart home PO lasix 80 mg BID - d/w daughter by phone - notes strong anxiety component, even at home O2 sat normal, appeared comfortable and complained of dyspnea as she became more anxious - daughter would like to follow up with PCP, agricultural research engineer Dr. Cam as outpatient to discuss goals of care PAF: -had AVN ablation and PPM in past, however has had rapid AF at times in hosp -developed rapid AF 02/12, required IV Metoprolol -cont amio (decreased to 100 qd, as she has been fully loaded--hope QTc will shorten to <500 msec on this dose, to allow to continue safely using this med. interaction with donepezil noted, however pt requires both of these meds for quality of life) -cont metoprolol 25 bid--tolerate SBP >80 -cont eliquis 2.5 bid--adjusted for age, weight VTach: -NSVT on tele -K/Mag per usual aggressive targets (/) -low dose BB as soft bp's allow hld: -cont home statin Progressive Cognitive decline: -Followed by Neuro as outpt cardiac hansen stable for dc
== END 2019-03-16 10:12 | disposition home health service (06) | DRG 306 ==
LOC: JER 13:42 → JERBED 16:14 → J4W 17:08
PROVIDERS: ATTEND Internal Medicine
DX: I08.1 Rheumatic disorders of both mitral and tricuspid valves (principal); I50.33 Acute on chronic diastolic (congestive) heart failure; I47.2 Ventricular tachycardia; I27.20 Pulmonary hypertension, unspecified; F03.90 Unspecified dementia, unspecified severity, without behavioral disturbance, psychotic disturbance, mood disturbance, and anxiety; I48.0 Paroxysmal atrial fibrillation; K21.9 Gastro-esophageal reflux disease without esophagitis; F41.8 Other specified anxiety disorders; E87.6 Hypokalemia; E78.5 Hyperlipidemia, unspecified; R53.1 Weakness
CPT/HCPCS: 36415; 71045-TC-FY; 80048; 80053; 81003; 82550; 83735; 83880; 84100; 84484; 85025; 85027; 87086; 93005; 93010; 93306-TC; 99285-25; G0008; J7030; Q2036

== ENCOUNTER 2019-03-27 13:11 | Inpatient (IN) | payer OTHER, BC ==
--- NOTE | 2019-03-27 13:30 | PDOC ---
History of Present Illness - General Chief Complaint: Weakness Stated Complaint: Weakness Time Seen by Provider: 03/27/19 13:24 - History of Present Illness Initial Comments: Maci Phan is an 83yo woman with a PMH of CHF, severe mitral regurgitation , pulmonary HTN, dementia, HTN, HLD, CKD, a-fib, frequent UTI who presents with decline in overall health for the past 3-4 days. Her daughter is at bedside to provide history. Per the daughter, Ms Phan was recently admitted with CHF exacerbation last month, and her lasix dose was increased to 80mg twice daily. The daughter feels this is too much as her lips appear very dry and she has lost 10lb over the past week or so. Over the past 3-4 days, she has also had decreasing energy levels to the point that she has stopped walking on her own. She has additionally had a decline in her mental status and is less conversational than baseline. Ms Phan has stopped eating, though her daughter reports that she had 2 ensure yesterday, and has not been drinking her entire allowed 1500mL of fluid. The daughter is not aware of any fever, chills, or pain and states that the pt has had normal frequency of urination and bowel movements. Past History - Past Medical History Allergies/Adverse Reactions: Allergies Allergy/AdvReac Type Severity Reaction Status Date / Time No Known Allergies Allergy Verified 03/12/19 13:59 Home Medications: Ambulatory Orders Apixaban [Eliquis] 2.5 mg PO BID 03/07/19 Atorvastatin Ca [Lipitor] 10 mg PO HS 03/07/19 Cyanocobalamin (Vitamin B-12) [Vitamin B-12] 2,000 mcg PO DAILY 03/07/19 Docusate Sodium [Colace] 100 mg PO TID 03/07/19 Donepezil HCl [Aricept] 10 mg PO DAILY 03/07/19 Ferrous Sulfate 325 mg PO DAILY 03/07/19 Furosemide [Lasix] 40 mg PO BID 03/07/19 Lorazepam [Ativan] 0.5 mg PO PRN PRN 03/07/19 Mag Hydrox/Al Hydrox/Simeth [Mylanta Oral Suspension -] 30 ml PO PRN PRN Magnesium Oxide 400 40 mg PO BID 03/07/19 Memantine HCl [Namenda -] 5 mg PO BID 03/07/19 Metoprolol Succinate [Toprol Xl] 25 mg PO DAILY 03/07/19 Mirtazapine [Remeron -] 15 mg PO HS 03/07/19 Pantoprazole Sodium [Protonix] 40 mg PO DAILY 03/07/19 Potassium Chloride [Klor-Con] 40 meq PO DAILY 03/07/19 Sucralfate [Carafate -] 1 gm PO TID 03/07/19 Amiodarone HCl [Cordarone -] 100 mg PO DAILY tablet 03/15/19 Anemia: Yes Asthma: No Cardiac Disorders: Yes (A-fib, PACEMAKER) COPD: No CHF: Yes Dementia: Yes GI Disorders: Yes (INDIGESTION, HIATAL HERNIA) HTN: Yes Hypercholesterolemia: Yes Psychiatric Problems: Yes (Anxiety) - Surgical History Cardiac Surgery: Yes (AV NODE ABLATION,pacemaker: [employer]- model # L331 Atrial lead # 7) - Immunization History Td Vaccination: Yes Immunization Up to Date: (UNKNOWN) - Psycho Social/Smoking Cessation Hx Smoking Status: No Smoking History: Never smoked Have you smoked in the past 12 months: No Number of Cigarettes Smoked Daily: 0 If you are a former smoker, when did you quit?: stopped at age 50 Information on smoking cessation initiated: No Hx Alcohol Use: No Drug/Substance Use Hx: No Substance Use Type: None Hx Substance Use Treatment: No Review of Systems - Review of Systems Comments:: Could not obtain, minimally verbal *Physical Exam - Vital Signs Last Vital Signs Temp Pulse Resp BP Pulse Ox 97.3 F L 83 16 122/74 100 03/27/19 13:23 03/27/19 13:23 03/27/19 13:23 03/27/19 13:23 03/27/19 13:23 - Physical Exam Comments: General: Comfortable, no acute distress HEENT: Atraumatic, PERRL, EOMI. Very dry, cracked lips and mouth w/ dry secretions over palate Cards: RRR, no murmur appreciated Pulm: Comfortable on room air, clear to auscultation bilaterally Abd: Soft, nontender, nondistended Ext: Atraumatic. No LE edema. ROM intact. WWP Skin: Normal color, no rashes or lesions Neuro: Awake, minimally verbal, CN grossly intact, motor/sensory grossly intact and symmetric ED Treatment Course - LABORATORY CBC & Chemistry Diagram: 03/27/19 14:02 03/27/19 14:02 Medical Decision Making - Critical Care Time Total Critical Care Time (minutes): 60 Critical Care Statement: The care of this patient involved high complexity decision making to prevent further life threatening deterioration of the patient 's condition and/or to evaluate & treat vital organ system(s) failure or risk of failure. - Medical Decision Making 03/27/19 13:46 Maci Phan is an 83yo woman with a PMH of CHF, severe mitral regurgitation , pulmonary HTN, dementia, HTN, HLD, CKD, a-fib, frequent UTI who presents with decline in overall health for the past 3-4 days, lack of energy, poor PO intake , decline in metal status, and loss of ability to ambulate. Her daughter is at bedside to provide history. - Broad differential including UTI, electrolyte abnormality secondary to diuretics, dehydration. No fever suggesting sepsis, no focal deficits suggesting CVA or TIA. - CBC, CMP, UA, UCx, mag, phos, trop, EKG, CXR - CT head to eval for occult injury, unknown fall - 500mL NS 03/27/19 15:22 - CBC notable for WBC of 29 - Blood cultures ordered - Vanc/zosyn 03/27/19 15:54 - Chemistry completed. Notable for Cr 3.2 from 1.1, Sodium 159, Trop 0.22. Potassium pending - Call to Dr Jurado, spoke to Dr Oliva. Recommending 1/2 NS, monitoring I& O's - Cervantes ordered - Renal adjust meds. - Spoke to Dr Lamas. Recommends trending trop but has been elevated in the past, may be due to underlying valvular disease and CHF 03/27/19 16:21 - BUN resulted, 150 from baseline ~20 - Updated pt and family regarding results. Discussed wishes regarding resuscitation and intubation; daughter states that they would not want the pt to have compressions or intubation but want all else to be done. Have not yet completed paperwork regarding advance directives - Contacted Dr Estrella for admission, waiting for a call back 03/27/19 16:40 - Spoke to Dr Estrella. Will admit to telemetry Discussed with Dr Oliva. Lety Case PGY2 Discharge - Discharge Information Problems reviewed: Yes Clinical Impression/Diagnosis: Weakness, Malaise, Elevated troponin, Hypernatremia, LILLIE (acute kidney injury) Condition: Fair - Admission Yes - Follow up/Referral - Patient Discharge Instructions - Post Discharge Activity
[2019-03-27 14:54] LABS: BASO % 0.3 % (0-2.0); EOS % 0.1 % (0-4.5); HEMATOCRIT 44.8 % (32.4-45.2); HEMOGLOBIN 13.6 GM/dL (10.7-15.3); MCH 28.3 pg (25.7-33.7); MCHC 30.2 g/dl (32.0-36.0); MEAN CELL VOLUME 93.5 fl (80-96); MEAN PLT VOLUME 10.9 fl (7.5-11.1); MONO % 5.2 % (3.8-10.2); NEUT % 90.4 % (42.8-82.8); PLATELET COUNT 397 K/MM3 (134-434); RBC 4.79 M/mm3 (3.60-5.2); RDW 17.8 % (11.6-15.6); WHITE BLOOD COUNT 29.1 K/mm3 (4.0-10.0)
[2019-03-27] MEDS ORDERED: PIPERACILLIN/TAZOB 3.375 GM 3.375 GM in DEXTROSE 5%-WATER - 50 ML IVPB ONE (15:11)
[2019-03-27] MEDS ORDERED: VANCOMYCIN 1 GM in D5W (PRE-DOCKED) 1,000 MG/250 ML IVPB ONE (15:11)
--- NOTE | 2019-03-27 15:41 | PDOC ---
Attending Attestation - Resident Resident Name: Lety Case - ED Attending Attestation I have performed the following: I have examined & evaluated the patient, The case was reviewed & discussed with the resident, I agree w/resident's findings & plan, Exceptions are as noted - HPI HPI: 03/27/19 15:43 83yo female with hx of chf and mvp presents for eval of ftt, dehydration, decreased po intake and generalized weakness. Pt unable to provide a complete hx. Pt arrives with her daughter who states decreased po intake x 5 days -only drinking ensure. Pt arrives confused, dehydrated, dry tacky membranes. - Physicial Exam PE: 03/27/19 15:45 Gen: awake, dehydrated, confused heent: Dry tachy membranes, dry cracked tongue and lips neck: supple heart: +s1s2 reg, +4/6 murmur lungs: cta b/l abd: soft, +ttp over bladder, nondistended ext: no c/c/e neuro: confused, no focal deficits, generalized weakness in all limbs - Critical Care Time Total Critical Care Time: 90 Critical Care Statement: The care of this patient involved high complexity decision making to prevent further life threatening deterioration of the patient 's condition and/or to evaluate & treat vital organ system(s) failure or risk of failure. - Medical Decision Making 03/27/19 15:49 a/p: 83yo female with ftt -dehydration, decreased po intake, poss uti -will send labs, ua, ucx, straight cath -will start ivf hydration -pt will need admission -pt without f/c, however suprapubic ttp - suspect uti -will monitor and reassess 03/27/19 15:51 pt with 30 sodium 160 cr 3.2 03/27/19 15:[address] lee -recommends 1/2 nss 03/27/19 16:01 resident discussing the case with Dr. Lamas 03/27/19 16:[address] Estrella for admission 03/27/19 16:39 resident discussed the case with Dr. Lamas and Dr. Estrella Heart Score/ECG Review - ECG Intrepretation Comment:: 03/27/19 15:48 sinus at 77, nl axis, baseline artifact, no acute st/t wave findings
[2019-03-27 15:47] LABS: ALBUMIN 2.6 g/dl (3.4-5.0); ANISOCYTOSIS 1+; BILIRUBIN,TOTAL 0.4 mg/dL (0.2-1); CALCIUM 9.3 mg/dL (8.5-10.1); CREATININE 3.2 mg/dL (0.55-1.3); PHOSPHOROUS 8.8 mg/dL (2.5-4.9); PLATELET ESTIMATE NORMAL; TOT PROT 7.8 g/dl (6.4-8.2)
[2019-03-27] MEDS ORDERED: SODIUM CHLORIDE 0.9% 1000 ML INFUS.BAG IV ONE (15:55)
[2019-03-27] MEDS ORDERED: PIPERACILLIN/TAZOB 2.25 GM 2.25 GM in DEXTROSE 5%-WATER - 50 ML IVPB ONE (15:57)
[2019-03-27] MEDS ORDERED: SODIUM CHLORIDE 0.45% 1,000 ML IV SCH (16:00)
[2019-03-27 16:14] LABS: BLOOD UREA NITROGEN 156.4 mg/dL (7-18); POTASSIUM 4.3 mmol/L (3.5-5.1)
[2019-03-27 16:19] LABS: MAGNESIUM 3.4 mg/dL (1.8-2.4)
[2019-03-27] MEDS ORDERED: VANCOMYCIN 1 GRAM (PRE-DOCKED) 1,000 MG/250 ML BAG IVPB ONE (16:34)
[2019-03-27] MEDS ORDERED: PIPERACILLIN/TAZOB 2.25 GM 2.25 GM/50 ML BAG IVPB ONE (16:34)
--- NOTE | 2019-03-27 17:29 | CONSULT ---
Consult Consult Specialty:: Nephrology Reason for Consultation:: LILLIE - History of Present Illness Chief Complaint: weakness History of Present Illness: Pt is an 83 year old female with pmhx of chf and mvp who presents wit decreased po intake and weakness. She was found to be in LILLIE and I was called to evaluate her. She denies shortness of breath. She did not take her diuretics today. SHe feels better this evening than she did this morning. She was found to have a uti as well. Daughter at bedside assisted with history. 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: Dementia, Other (Cognitive decline) Cardio/Vascular: Yes: AFIB, HTN, Hyperlipdemia, Mitral Insufficiency (MVR w Mod- Severe MR), Other ( Moderate to sevre Tricuspid regurg) Gastrointestinal: Yes: GERD Renal/: Yes: Renal Inusuff, UTI Infectious Disease: Yes: Other (UTIS) Psych: Yes: Anxiety - Past Surgical History Past Surgical History: Yes: Permanent Pacemaker ([employer]- model # L331 Atrial lead # 7) - Alcohol/Substance Use Hx Alcohol Use: No History of Substance Use: reports: None - Smoking History Smoking history: Never smoked Have you smoked in the past 12 months: No Aproximately how many cigarettes per day: 0 If you are a former smoker, when did you quit?: stopped at age 50 - Social History Usual Living Arrangement: Alone ADL: Independent History of Recent Travel: No Home Medications - Allergies Allergies/Adverse Reactions: Allergies Allergy/AdvReac Type Severity Reaction Status Date / Time No Known Allergies Allergy Verified 03/12/19 13:59 - Home Medications Home Medications: Ambulatory Orders Apixaban [Eliquis] 2.5 mg PO BID 03/07/19 Atorvastatin Ca [Lipitor] 10 mg PO HS 03/07/19 Cyanocobalamin (Vitamin B-12) [Vitamin B-12] 2,000 mcg PO DAILY 03/07/19 Docusate Sodium [Colace] 100 mg PO TID 03/07/19 Donepezil HCl [Aricept] 10 mg PO DAILY 03/07/19 Ferrous Sulfate 325 mg PO DAILY 03/07/19 Furosemide [Lasix] 40 mg PO BID 03/07/19 Lorazepam [Ativan] 0.5 mg PO PRN PRN 03/07/19 Mag Hydrox/Al Hydrox/Simeth [Mylanta Oral Suspension -] 30 ml PO PRN PRN Magnesium Oxide 400 40 mg PO BID 03/07/19 Memantine HCl [Namenda -] 5 mg PO BID 03/07/19 Metoprolol Succinate [Toprol Xl] 25 mg PO DAILY 03/07/19 Mirtazapine [Remeron -] 15 mg PO HS 03/07/19 Pantoprazole Sodium [Protonix] 40 mg PO DAILY 03/07/19 Potassium Chloride [Klor-Con] 40 meq PO DAILY 03/07/19 Sucralfate [Carafate -] 1 gm PO TID 03/07/19 Amiodarone HCl [Cordarone -] 100 mg PO DAILY tablet 03/15/19 Family Medical History Family History: Denies Review of Systems - Review of Systems Constitutional: reports: Malaise Eyes: reports: No Symptoms HENT: reports: No Symptoms Neck: reports: No Symptoms Cardiovascular: reports: No Symptoms Respiratory: reports: No Symptoms Gastrointestinal: reports: No Symptoms Genitourinary: reports: No Symptoms Musculoskeletal: reports: Muscle Weakness Neurological: reports: No Symptoms Physical Exam Vital Signs: Vital Signs Temperature 97.3 F L 03/27/19 13:23 Pulse Rate 83 03/27/19 13:23 Respiratory Rate 16 03/27/19 13:23 Blood Pressure 122/74 03/27/19 13:23 O2 Sat by Pulse Oximetry (%) 100 03/27/19 13:23 Constitutional: Yes: Calm Eyes: Yes: Conjunctiva Clear HENT: Yes: Atraumatic Cardiovascular: Yes: S1, S2 Respiratory: Yes: CTA Bilaterally Gastrointestinal: Yes: Soft Musculoskeletal: Yes: Muscle Weakness Edema: No Neurological: Yes: Oriented Labs: CBC, BMP 03/27/19 14:02 03/27/19 14:02 Laboratory Tests 03/27/19 03/27/19 03/27/19 14:02 14:02 14:05 Sodium 159 H Potassium 4.3 BUN 156.4 H* Creatinine 3.2 H Lactic Acid 2.5 H* B-Natriuretic Peptide 2086.8 H Imaging - Results Chest X-ray: Report Reviewed Assessment/Plan Current Medications Generic Name Dose Route Start Last Admin Trade Name Freq PRN Reason Stop Dose Admin Sodium Chloride 1,000 mls @ 75 mls/hr 03/27/19 16:00 1/2 Normal Saline IV ASDIR PETTY Impression 1. LILLIE 2. chf 3. mitral regurg 4. dementia 5. a-fib 6. hld 7. solitary right kidney 8. possibel UTI Plan - hold diuretics - start fluids - check cultures - check ua - check urine lytes - check renal ultrasound - avoid nephrotoxins and nsaids - case discussed with family
[2019-03-27 17:39] LABS: EPI CELLS 1.3 /HPF (0-5/HPF); HYALINE CASTS 28 /lpf (0-8); URINE APPEARANCE TURBID; URINE BACTERIA 5506.7 /hpf (NEGATIVE); URINE BILIRUBIN NEGATIVE (NEGATIVE); URINE COLOR YELLOW; URINE GLUCOSE (UA) NEGATIVE (NEGATIVE); URINE KETONE NEGATIVE (NEGATIVE); URINE LEUK ESTERASE 2+ (NEGATIVE); URINE NITRITE NEGATIVE (NEGATIVE); URINE PROTEIN TRACE (NEGATIVE); URINE RBC 1 /hpf (0-4); URINE UROBILINOGEN 0.2 mg/dL (0.2-1.0); URINE WBC 28 /hpf (0-5)
--- NOTE | 2019-03-27 19:33 | HP ---
Admitting History and Physical - Primary Care Physician PCP: Cheeynne Estrella - Admission History of Present Illness: 83yo female with hx of chf and mvp presents for eval of ftt, dehydration, decreased po intake and generalized weakness. Pt unable to provide a complete hx. Pt arrives with her daughter who states decreased po intake x 5 days -only drinking ensure. Pt arrives confused, dehydrated, dry tacky membranes. 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), Other ( Moderate to sevre Tricuspid regurg) Gastrointestinal: Yes: GERD Renal/: Yes: Renal Inusuff, UTI Heme/Onc: No: Anemia, B12 Deficiency, Bleeding Disorder, Cancer, Current Chemotherapy, Current Radiation Therapy, Hemochromatosis, Hypercoaguable State, Myeloproliferative Synd, Sickle Cell Disease, Sickle Cell Trait, Thrombocytopenia, Other Infectious Disease: Yes: Other (UTIS) Psych: Yes: Anxiety - Past Surgical History Past Surgical History: Yes: Permanent Pacemaker ([employer]- model # L331 Atrial lead # 7) - Smoking History Smoking history: Never smoked Have you smoked in the past 12 months: No Aproximately how many cigarettes per day: 0 If you are a former smoker, when did you quit?: stopped at age 50 - Alcohol/Substance Use Hx Alcohol Use: No History of Substance Use: reports: None - Social History ADL: Independent History of Recent Travel: No Home Medications - Allergies Allergies/Adverse Reactions: Allergies Allergy/AdvReac Type Severity Reaction Status Date / Time No Known Allergies Allergy Verified 03/12/19 13:59 - Home Medications Home Medications: Ambulatory Orders Apixaban [Eliquis] 2.5 mg PO BID 03/07/19 Atorvastatin Ca [Lipitor] 10 mg PO HS 03/07/19 Cyanocobalamin (Vitamin B-12) [Vitamin B-12] 2,000 mcg PO DAILY 03/07/19 Docusate Sodium [Colace] 100 mg PO TID 03/07/19 Donepezil HCl [Aricept] 10 mg PO DAILY 03/07/19 Furosemide [Lasix] 40 mg PO BID 03/07/19 Lorazepam [Ativan] 0.5 mg PO PRN PRN 03/07/19 Memantine HCl [Namenda -] 5 mg PO BID 03/07/19 Metoprolol Succinate [Toprol Xl] 25 mg PO DAILY 03/07/19 Mirtazapine [Remeron -] 15 mg PO HS 03/07/19 Pantoprazole Sodium [Protonix] 40 mg PO DAILY 03/07/19 Potassium Chloride [Klor-Con] 40 meq PO DAILY 03/07/19 Amiodarone HCl [Cordarone -] 100 mg PO DAILY tablet 03/15/19 Physical Examination Vital Signs: Vital Signs Temperature 97.3 F L 03/27/19 13:23 Pulse Rate 83 03/27/19 13:23 Respiratory Rate 16 03/27/19 13:23 Blood Pressure 122/74 03/27/19 13:23 O2 Sat by Pulse Oximetry (%) 100 03/27/19 13:23 Constitutional: Yes: No Distress HENT: Yes: Atraumatic Neck: Yes: Supple Cardiovascular: Yes: Regular Rate and Rhythm Respiratory: Yes: CTA Bilaterally Gastrointestinal: Yes: Normal Bowel Sounds Extremities: Yes: WNL Edema: No Peripheral Pulses WNL: Yes Neurological: Yes: Alert Labs: CBC, BMP 03/27/19 14:02 03/27/19 14:02 Imaging - Results X-ray: Report Reviewed Problem List - Problems (1) LILLIE (acute kidney injury) Code(s): N17.9 - ACUTE KIDNEY FAILURE, UNSPECIFIED (2) Elevated troponin Assessment/Plan: monitor demand ischemia? cardio consult Code(s): R74.8 - ABNORMAL LEVELS OF OTHER SERUM ENZYMES (3) CHF (congestive heart failure) Code(s): I50.9 - HEART FAILURE, UNSPECIFIED (4) Dementia Code(s): F03.90 - UNSPECIFIED DEMENTIA WITHOUT BEHAVIORAL DISTURBANCE (5) GERD (gastroesophageal reflux disease) Code(s): K21.9 - GASTRO-ESOPHAGEAL REFLUX DISEASE WITHOUT ESOPHAGITIS (6) Atrial fibrillation Assessment/Plan: on meds Code(s): I48.91 - UNSPECIFIED ATRIAL FIBRILLATION Qualifiers: Atrial fibrillation type: paroxysmal Qualified Code(s): I48.0 - Paroxysmal atrial fibrillation (7) HTN (hypertension) Assessment/Plan: on meds monitor Code(s): I10 - ESSENTIAL (PRIMARY) HYPERTENSION (8) Dehydration Assessment/Plan: hold diuretics hydrate Code(s): E86.0 - DEHYDRATION Assessment/Plan Laboratory Results - last 24 hr 11/18/19 11/18/19 11/18/19 13:48 14:02 14:02 WBC 29.1 H RBC 4.79 Hgb 13.6 Hct 44.8 D MCV 93.5 MCH 28.3 MCHC 30.2 L RDW 17.8 H Plt Count 397 D MPV 10.9 Absolute Neuts (auto) 26.3 H Neutrophils % 90.4 H Neutrophils % (Manual) 97.0 H Band Neutrophils % 0.0 Lymphocytes % 4.0 L D Lymphocytes % (Manual) 1.0 L Monocytes % 5.2 Monocytes % (Manual) 2 L Eosinophils % 0.1 D Eosinophils % (Manual) 0.0 Basophils % 0.3 Basophils % (Manual) 0.0 Myelocytes % (Man) 0 Promyelocytes % (Man) 0 Blast Cells % (Manual) 0 Nucleated RBC % 0 Metamyelocytes 0 Hypochromia 1+ Platelet Estimate Normal Anisocytosis 1+ Schistocytes 1+ Sodium 159 H Potassium 4.3 Chloride 119 H Carbon Dioxide 28 Anion Gap 12 BUN 156.4 H* Creatinine 3.2 H Est GFR (CKD-EPI)AfAm 14.79 Est GFR (CKD-EPI)NonAf 12.76 POC Glucometer 137 Random Glucose 133 H Lactic Acid Calcium 9.3 Phosphorus 8.8 H Magnesium 3.4 H Total Bilirubin 0.4 AST 42 H ALT 38 Alkaline Phosphatase 120 H Creatine Kinase 131 Troponin I 0.22 H B-Natriuretic Peptide Total Protein 7.8 Albumin 2.6 L Urine Color Urine Appearance Urine pH Ur Specific [place] Urine Protein Urine Glucose (UA) Urine Ketones Urine Blood Urine Nitrite Urine Bilirubin Urine Urobilinogen Ur Leukocyte Esterase Urine WBC (Auto) Urine RBC (Auto) Urine Casts (Auto) U Epithel Cells (Auto) Urine Bacteria (Auto) 03/27/19 03/27/19 03/27/19 14:02 14:05 16:34 WBC RBC Hgb Hct MCV MCH MCHC RDW Plt Count MPV Absolute Neuts (auto) Neutrophils % Neutrophils % (Manual) Band Neutrophils % Lymphocytes % Lymphocytes % (Manual) Monocytes % Monocytes % (Manual) Eosinophils % Eosinophils % (Manual) Basophils % Basophils % (Manual) Myelocytes % (Man) Promyelocytes % (Man) Blast Cells % (Manual) Nucleated RBC % Metamyelocytes Hypochromia Platelet Estimate Anisocytosis Schistocytes Sodium Potassium Chloride Carbon Dioxide Anion Gap BUN Creatinine Est GFR (CKD-EPI)AfAm Est GFR (CKD-EPI)NonAf POC Glucometer Random Glucose Lactic Acid 2.5 H* Calcium Phosphorus Magnesium Total Bilirubin AST ALT Alkaline Phosphatase Creatine Kinase Troponin I B-Natriuretic Peptide 2086.8 H Total Protein Albumin Urine Color Yellow Urine Appearance Turbid Urine pH 5.0 Ur Specific Brent[place] 1.016 Urine Protein Trace Urine Glucose (UA) Negative Urine Ketones Negative Urine Blood Negative Urine Nitrite Negative Urine Bilirubin Negative Urine Urobilinogen 0.2 Ur Leukocyte Esterase 2+ H Urine WBC (Auto) 28 Urine RBC (Auto) 1 Urine Casts (Auto) 28 U Epithel Cells (Auto) 1.3 Urine Bacteria (Auto) 5506.7 Active Medications Generic Name Dose Route Start Last Admin Trade Name Freq PRN Reason Stop Dose Admin Sodium Chloride 1,000 mls @ 75 mls/hr 03/27/19 16:00 03/27/19 17:47 1/2 Normal Saline IV 75 mls/hr ASDIR PETTY Administration Active Medications Generic Name Dose Route Start Last Admin Trade Name Jose PRN Reason Stop Dose Admin Amiodarone HCl 100 mg 03/28/19 10:00 03/28/19 10:30 Cordarone - PO 100 mg DAILY PETTY Administration Apixaban 2.5 mg 03/27/19 22:00 03/28/19 10:30 Eliquis - PO 2.5 mg BID PETTY Administration Atorvastatin Calcium 10 mg 03/27/19 22:00 03/27/19 23:52 Lipitor - PO 10 mg HS PETTY Administration Donepezil HCl 10 mg 03/28/19 10:00 03/28/19 10:30 Aricept - PO 10 mg DAILY PETTY Administration Fluoxetine HCl 20 mg 03/28/19 13:00 03/28/19 16:20 Prozac - PO Not Given DAILY PETTY Dextrose 1,000 mls @ 75 mls/hr 03/28/19 14:30 03/28/19 18:10 D5w - IV 75 mls/hr ASDIR PETTY Administration Ceftriaxone Sodium 2 gm/ 100 mls @ 200 mls/hr 03/29/19 10:00 Dextrose IVPB DAILY PETTY Protocol Memantine 5 mg 03/27/19 22:00 03/28/19 10:30 Namenda - PO 5 mg BID PETTY Administration Metoprolol Succinate 25 mg 03/28/19 10:00 03/28/19 10:30 Toprol Xl - PO 25 mg DAILY PETTY Administration Mirtazapine 15 mg 03/28/19 22:00 Remeron - PO HS PETTY Pantoprazole Sodium 40 mg 03/28/19 13:00 03/28/19 16:20 Protonix - PO Not Given DAILY PETTY
[2019-03-27] MEDS ORDERED: ATORVASTATIN CA 10 MG TABLET (FP) ONE (23:00)
[2019-03-27] MEDS: ATORVASTATIN CA 10 MG TABLET (FP) PO SCH (23:52)
[2019-03-27] MEDS: MEMANTINE HCL 5 MG TABLET (UD) PO SCH (23:52)
[2019-03-27] MEDS: APIXABAN 2.5 MG TABLET PO SCH (23:52)
[2019-03-28] MEDS ORDERED: CEFTRIAXONE 1 GM in DEXTROSE 5%-WATER - 50 ML IVPB SCH (10:00)
[2019-03-28] MEDS ORDERED: CEFTRIAXONE 1 GM/50 ML BAG ONE (10:09)
[2019-03-28] MEDS: DONEPEZIL HCL 10 MG TABLET (FP) PO SCH (10:30)
[2019-03-28] MEDS: MEMANTINE HCL 5 MG TABLET (UD) PO SCH ×2 (10:30→22:22)
[2019-03-28] MEDS: APIXABAN 2.5 MG TABLET PO SCH ×2 (10:30→22:22)
[2019-03-28] MEDS: metoPROLOL SUCCINATE 25 MG TAB.SR.24H (FP) PO SCH (10:30)
[2019-03-28] MEDS: AMIODARONE HCL 200 MG TABLET (FP) PO SCH (10:30)
--- NOTE | 2019-03-28 10:37 | EKG ---
Test Reason : Blood Pressure : / mmHG Vent. Rate : 088 BPM Atrial Rate : 088 BPM P-R Int : 138 ms QRS Dur : 084 ms QT Int : 426 ms P-R-T Axes : 067 019 048 degrees QTc Int : 515 ms NORMAL SINUS RHYTHM PROLONGED QT ABNORMAL ECG Confirmed by MD EMPERATRIZ, NOELLE ([id number]) on 03/28/2019 10:37:33 AM Referred By: Confirmed By:NOELLE AWAN MD
--- NOTE | 2019-03-28 10:40 | EKG ---
Test Reason : Blood Pressure : / mmHG Vent. Rate : 077 BPM Atrial Rate : 077 BPM P-R Int : 134 ms QRS Dur : 086 ms QT Int : 384 ms P-R-T Axes : 044 019 034 degrees QTc Int : 434 ms POOR DATA QUALITY, INTERPRETATION MAY BE ADVERSELY AFFECTED SINUS RHYTHM WITH PREMATURE SUPRAVENTRICULAR COMPLEXES NONSPECIFIC ST AND T WAVE ABNORMALITY ABNORMAL ECG Confirmed by MD EMPERATRIZ, NOELLE ([id number]) on 03/28/2019 10:40:13 AM Referred By: Confirmed By:NOELLE AWAN MD
[2019-03-28 11:40] LABS: BASO % 0.1 % (0-2.0); EOS % 0.2 % (0-4.5); HEMATOCRIT 39.2 % (32.4-45.2); HEMOGLOBIN 12.2 GM/dL (10.7-15.3); LYMPH % 6.8 % (8-40); MCH 28.9 pg (25.7-33.7); MEAN CELL VOLUME 93.1 fl (80-96); MEAN PLT VOLUME 10.6 fl (7.5-11.1); NEUT % 87.9 % (42.8-82.8); PLATELET COUNT 310 K/MM3 (134-434); RDW 17.7 % (11.6-15.6); WHITE BLOOD COUNT 19.1 K/mm3 (4.0-10.0)
--- NOTE | 2019-03-28 11:47 | CON.CARD ---
Cardiology Consult (text) - Consultation Consultation Note: Consultation Note: Consult Specialty:: cardio - History of Present Illness History of Present Illness: 83 F h/o severe MR, multiple recent admissions for CHF exac p/w dehydration, weakness. She was recently admitted for dyspnea, diuresed with IV lasix and discharged home PO lasix.. Has had home administrator, visiting nurse, compliant with fluid restriction, lasix. For the last couple of days has been complaining of feeling weak and dehydrated. Found to be in LILLIE, hypernatremic. Did not take lasix day prior to admission. Feels better today, drinking more water. Per daughter reportedly weight stable. 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), Other ( Moderate to sevre Tricuspid regurg) Gastrointestinal: Yes: GERD Renal/: Yes: Renal Inusuff, UTI Infectious Disease: Yes: Other (UTIS) Psych: Yes: Anxiety - Past Surgical History Past Surgical History: Yes: Permanent Pacemaker ([employer]- model # L331 Atrial lead # 7) - Alcohol/Substance Use Hx Alcohol Use: No History of Substance Use: reports: None - Smoking History Smoking history: Never smoked Have you smoked in the past 12 months: No Aproximately how many cigarettes per day: 0 (h/o 2PPD age [age]) If you are a former smoker, when did you quit?: stopped at age 50 - Social History Usual Living Arrangement: Alone ADL: Independent History of Recent Travel: No Home Medications - Allergies Allergies/Adverse Reactions: Allergies Allergy/AdvReac Type Severity Reaction Status Date / Time No Known Allergies Allergy Verified 03/12/19 13:59 Ambulatory Orders Apixaban [Eliquis] 2.5 mg PO BID 03/07/19 Atorvastatin Ca [Lipitor] 10 mg PO HS 03/07/19 Cyanocobalamin (Vitamin B-12) [Vitamin B-12] 2,000 mcg PO DAILY 03/07/19 Docusate Sodium [Colace] 100 mg PO TID 03/07/19 Donepezil HCl [Aricept] 10 mg PO DAILY 03/07/19 Ferrous Sulfate 325 mg PO DAILY 03/07/19 Furosemide [Lasix] 40 mg PO BID 03/07/19 Lorazepam [Ativan] 0.5 mg PO PRN PRN 03/07/19 Mag Hydrox/Al Hydrox/Simeth [Mylanta Oral Suspension -] 30 ml PO PRN PRN Magnesium Oxide 400 40 mg PO BID 03/07/19 Memantine HCl [Namenda -] 5 mg PO BID 03/07/19 Metoprolol Succinate [Toprol Xl] 25 mg PO DAILY 03/07/19 Mirtazapine [Remeron -] 15 mg PO HS 03/07/19 Pantoprazole Sodium [Protonix] 40 mg PO DAILY 03/07/19 Potassium Chloride [Klor-Con] 40 meq PO DAILY 03/07/19 Sucralfate [Carafate -] 1 gm PO TID 03/07/19 Amiodarone HCl [Cordarone -] 100 mg PO DAILY tablet 03/15/19 Vital Signs: Vital Signs Period Temp Pulse Resp BP Sys/Rice Pulse Ox Last 24 Hr 97.3 F-97.3 F 70-83 14-20 105-127/68-78 97-100 NAD nl s1, s2, rrr CTAB soft, nt, nd +bs no edema no jaundice, diaphoresis aox3 not agitated Assessment/Plan CXR: clear lungs/pleura EKG sinus, prolonged QTc 515 ms, stable compared to prior dehydration, hypernatremia, LILLIE - weakness, dehydration improved with IVF - cautious use of IVF given severe MR, recent admissions for CHF - renal consulted UTI - manage per primary chronic diastolic chf, severe MR: - currently dry - holding lasix, IVF as above - monitor volume status PAF: -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
[2019-03-28 12:26] LABS: ALBUMIN 2.5 g/dl (3.4-5.0); BILIRUBIN,TOTAL 0.5 mg/dL (0.2-1); CALCIUM 8.7 mg/dL (8.5-10.1); CREATININE 3.1 mg/dL (0.55-1.3); POTASSIUM 3.1 mmol/L (3.5-5.1); TOT PROT 6.6 g/dl (6.4-8.2)
[2019-03-28 12:31] LABS: BLOOD UREA NITROGEN 143.3 mg/dL (7-18)
--- NOTE | 2019-03-28 14:23 | PN ---
Progress Note, Physician History of Present Illness: Pt seen and examined at bedside. She is more awake and alert today. She denies shortness of breath. - Current Medication List Current Medications: Active Medications Amiodarone HCl (Cordarone -) 100 mg PO DAILY [facility] Last Admin: 03/28/19 10:30 Dose: 100 mg Apixaban (Eliquis -) 2.5 mg PO BID [facility] Last Admin: 03/28/19 10:30 Dose: 2.5 mg Atorvastatin Calcium (Lipitor -) 10 mg PO HS [facility] Last Admin: 03/27/19 23:52 Dose: 10 mg Donepezil HCl (Aricept -) 10 mg PO DAILY [facility] Last Admin: 03/28/19 10:30 Dose: 10 mg Fluoxetine HCl (Prozac -) 20 mg PO DAILY [facility] Sodium Chloride (1/2 Normal Saline) 1,000 mls @ 75 mls/hr IV ASDIR [facility] Last Admin: 03/27/19 17:47 Dose: 75 mls/hr Ceftriaxone Sodium (Ceftriaxone 2 Gm-D5w Bag) 2 gm in 50 mls @ 100 mls/hr IVPB DAILY [facility]; Protocol Memantine (Namenda -) 5 mg PO BID [facility] Last Admin: 03/28/19 10:30 Dose: 5 mg Metoprolol Succinate (Toprol Xl -) 25 mg PO DAILY [facility] Last Admin: 03/28/19 10:30 Dose: 25 mg Mirtazapine (Remeron -) 15 mg PO HS [facility] Pantoprazole Sodium (Protonix -) 40 mg PO DAILY [facility] - Objective Vital Signs: Vital Signs Temperature 97.3 F L 03/28/19 07:30 Pulse Rate 70 03/28/19 07:30 Respiratory Rate 20 03/28/19 07:30 Blood Pressure 114/68 03/28/19 07:30 O2 Sat by Pulse Oximetry (%) 97 03/28/19 07:30 Constitutional: Yes: Calm Eyes: Yes: Conjunctiva Clear HENT: Yes: Atraumatic Neck: Yes: Supple Cardiovascular: Yes: S1, S2 Respiratory: Yes: CTA Bilaterally Gastrointestinal: Yes: Soft Genitourinary: Yes: WNL Musculoskeletal: Yes: WNL Edema: No Neurological: Yes: Confusion Labs: CBC, BMP 03/28/19 10:53 03/28/19 10:53 Assessment/Plan Current Medications Generic Name Dose Route Start Last Admin Trade Name Freq PRN Reason Stop Dose Admin Amiodarone HCl 100 mg 03/28/19 10:00 03/28/19 10:30 Cordarone - PO 100 mg DAILY PETTY Administration Apixaban 2.5 mg 03/27/19 22:00 03/28/19 10:30 Eliquis - PO 2.5 mg BID PETTY Administration Atorvastatin Calcium 10 mg 03/27/19 22:00 03/27/19 23:52 Lipitor - PO 10 mg HS PETTY Administration Donepezil HCl 10 mg 03/28/19 10:00 03/28/19 10:30 Aricept - PO 10 mg DAILY PETTY Administration Fluoxetine HCl 20 mg 03/28/19 13:00 Prozac - PO DAILY PETTY Sodium Chloride 1,000 mls @ 75 mls/hr 03/27/19 16:00 03/27/19 17:47 1/2 Normal Saline IV 75 mls/hr ASDIR PETTY Administration Ceftriaxone Sodium 2 gm in 50 mls @ 100 mls/hr 03/28/19 13:30 Ceftriaxone 2 Gm-D5w Bag IVPB DAILY [facility] Protocol Memantine 5 mg 03/27/19 22:00 03/28/19 10:30 Namenda - PO 5 mg BID PETTY Administration Metoprolol Succinate 25 mg 03/28/19 10:00 03/28/19 10:30 Toprol Xl - PO 25 mg DAILY PETTY Administration Mirtazapine 15 mg 03/28/19 22:00 Remeron - PO HS PETTY Pantoprazole Sodium 40 mg 03/28/19 13:00 Protonix - PO DAILY [facility] Impression 1. LILLIE 2. chf 3. mitral regurg 4. dementia 5. a-fib 6. hld 7. solitary right kidney 8. UTI 9. right side hydro 10. bacteremia Plan - place argueta as she has hysro - change fluids to d5w - cont to follow cultures - cont abx - hold lasix - avoid nephrotoxins and nsaids - case discussed with family
[2019-03-28] MEDS ORDERED: POTASSIUM CHLORIDE TABS 20 MEQ TABLET.ER (FP) PO ONE (14:24)
[2019-03-28] MEDS ORDERED: DEXTROSE 5%-WATER - 1,000 ML IV SCH (14:30)
--- NOTE | 2019-03-28 14:43 | PN ---
Progress Note (short form) - Note Progress Note: ID consult dictated imp/reccd 83 yo female admitted from home with weakness, decreased po intake, since Wednesday unable to ambulate, poor po intake on lasix at home for CHF recent admission [place] for CHF history of severe mitral regurgitation and PPM gram positive bacteremia- ?secondary to UTI acute renal failure severe mitral regurg PPM r/o endocarditis continue vancomycin by level continue ceftriaxone repeat blood cultures echo ivf Problem List - Problems (1) Positive blood culture Code(s): R78.81 - BACTEREMIA (2) ILLLIE (acute kidney injury) Code(s): N17.9 - ACUTE KIDNEY FAILURE, UNSPECIFIED (3) Mitral valve regurgitation Code(s): I34.0 - NONRHEUMATIC MITRAL (VALVE) INSUFFICIENCY (4) Pacemaker Code(s): Z95.0 - PRESENCE OF CARDIAC PACEMAKER
[2019-03-28] MEDS ORDERED: CEFTRIAXONE 2 GM in DEXTROSE 5%-WATER 100 ML IVPB SCH (14:45)
--- NOTE | 2019-03-28 15:38 | CONS ---
INFECTIOUS DISEASE CONSULTATION DATE OF CONSULTATION: DATE OF DICTATION: 03/28/2019 REQUESTING PHYSICIAN: Norman Lamas MD HISTORY: This is an 83-year-old woman who was recently in the hospital March 12 to March 16 with diastolic heart failure. She has a history of severe mitral regurgitation and a pacemaker. She is now admitted from home with a history of decreased p.o. intake and generalized weakness for 3 to 4 days at home She has really been only drinking Ensure. She is confused and reports that she feels very dry and wants something to drink. She was noted in the ER to be very dehydrated, to be in acute renal failure. She had an elevated white count and had blood cultures drawn. This morning, 2 of 4 blood culture bottles are growing gram-positive cocci in chains, and I am asked to see her. She has a white count as well on admission of 29,000. She got vancomycin and Zosyn. She is currently resting comfortably in the emergency room. She has no chest pain. She is not short of breath. She is lying flat. Her only complaint is that she is very dehydrated. PAST MEDICAL HISTORY: Notable for history of CHF, severe mitral regurgitation, pulmonary hypertension, mild dementia, hypertension, hyperlipidemia, CKD, atrial fibrillation, recurrent UTI. She has a history of a hiatal hernia and anxiety as well as hypertension, hypercholesterolemia. SURGICAL HISTORY: Notable for AV node ablation and she has a pacemaker. SOCIAL HISTORY: She lives at home with her family members. There has been no history of recent travel or sick contacts. She stopped smoking at age 50. There is no history of any other substance use. ALLERGIES: She has no known drug allergies. MEDICATIONS: At home include potassium, Protonix, Remeron, Toprol XL, Namenda, Ativan, Lasix, Aricept, Colace, vitamin B12, Lipitor, Eliquis, and amiodarone. REVIEW OF SYSTEMS: She denies any nausea or vomiting. She reports no dysuria or diarrhea. Per the family, has been having hard bowel movements, per the chart. PHYSICAL EXAMINATION: Vital Signs: Temperature 97.3, pulse 70, blood pressure 114/68, respiratory rate 20. She is saturating 97% on room air. HEENT: She is normocephalic. Her eyes are anicteric. She has very dry oral mucosa. Neck: Supple. General: She is alert and responsive. Lungs: Clear to auscultation. Heart: She has a harsh 3/6 systolic ejection murmur heard throughout the precordium. Abdomen: Soft and nontender. Extremities: Without edema. Genitourinary: A Cervantes was placed and is draining clear urine. White count on admission was 29.1, repeat of 19.1 this morning, hemoglobin 310, INR 1.45, BUN 143, creatinine 3.1. Liver function tests are normal. Lactic acid was 2.5. Troponin 0.16. Urinalysis with 2+ leukocyte esterase and 20 white cells. Blood cultures 2 of 4 bottle have grown gram-positive cocci in chains. Urine culture is pending. Chest x-ray shows no acute infiltrate. Renal bladder ultrasound is notable for mild echogenic right kidney, mild right-sided hydronephrosis, and left-sided kidney could not be visualized. Patient to me denies any history of left-sided nephrectomy. In summary, this is an elderly woman admitted from home with: 1. Sepsis, dehydration, acute renal failure in the setting of gram-positive bacteremia, severe mitral regurgitation, and permanent pacemaker. Concerns are for strep bacteremia of unclear etiology including possible source of urinary tract infection. Does not appear to have any lung disease. Her abdominal exam is benign. Would treat her with vancomycin and ceftriaxone at this time while awaiting further culture results. Repeat blood cultures have been ordered as well as a vancomycin level. Echocardiogram was done. Concerns, of course, in this setting would include infected pacemaker wires as well as endocarditis given the mitral regurgitation. 2. Acute renal failure most likely secondary to over diuresis. Her Lasix has been held, and she is responding to IV fluids with good urine output. Overall, prognosis is guarded. Further recommendations to follow. ÁNGELA SAPP M.D. [id number] MTDD
[2019-03-28] MEDS: FLUoxetine HCL 20 MG CAPSULE (FP) PO SCH (16:20)
[2019-03-28] MEDS: PANTOPRAZOLE 40 MG TABLET (FP) PO SCH (16:20)
--- NOTE | 2019-03-28 17:21 | ECHO ---
Name: BOBBI ALBERT Exam:Adult Echocardiogram Study Date: 03/28/2019 01:46 PM Age: 83 yrs Reason For Study: +blood cultures Height: 65 in Weight: 120 lb BSA: 1.6 m2 MMode/2D Measurements & Calculations IVSd: 1.3 cm Ao root diam: 2.9 cm LVIDd: 4.4 cm LA dimension: 3.8 cm LVIDs: 2.7 cm LVPWd: 1.1 cm EDV(Teich): 86.8 ml LVOT diam: 2.0 cm ESV(Teich): 26.0 ml LAV (MOD-bp): 84.7 ml Doppler Measurements & Calculations MV E max ahmet: 157.0 cm/sec Ao V2 max: 141.0 cm/sec MV A max ahmet: 82.0 cm/sec Ao max P.0 mmHg MV E/A: 1.9 AI P1/2t: 695.0 msec MV dec time: 0.26 sec HARINDER(V,D): 2.1 cm2 AI max ahmet: 299.0 cm/sec LV V1 max P.7 mmHg AI max P.8 mmHg LV V1 max: 96.0 cm/sec AI dec slope: 126.0 cm/sec2 MR max ahmet: 390.0 cm/sec TR max ahmet: 278.8 cm/sec MR max P.0 mmHg TR max P.6 mmHg PA V2 max: 199.0 cm/sec Med Peak E' Ahmet: 7.6 cm/sec PA max P.8 mmHg Med E/e': 20.6 Lat Peak E' Ahmet: 9.4 cm/sec Lat E/e': 16.8 PI Vmax: 214.0 cm/sec Procedure A two-dimensional transthoracic echocardiogram with color flow and Doppler was performed. The patient was in normal sinus rhythm during the exam. Left Ventricle There is mild concentric left ventricular hypertrophy. Left ventricular systolic function is normal. Ejection Fraction = 70%. The transmitral spectral Doppler flow pattern is suggestive of pseudonormalization. Right Ventricle A device wire is noted in the right heart. The right ventricle is normal size. The right ventricular systolic function is normal. Atria The left atrium is severely dilated. Right atrial size is normal. Mitral Valve There is moderate mitral annular calcification. There is significant prolapse vs partial flail of the posterior mitral valve leaflet. There is severe mitral regurgitation. Severe, eccentric, anteriorly d irected mitral regurgitation. Tricuspid Valve The tricuspid valve is normal. There is mild to moderate tricuspid regurgitation. Right ventricular s ystolic pressure is elevated at 40-50mmHg. Aortic Valve Fibrocalcific aortic valve disease without stenosis. The aortic valve is trileaflet. Mild aortic regurgitation. Pulmonic Valve The pulmonic valve is not well seen, but is grossly normal. Trace pulmonic valvular regurgitation. Great Vessels The aortic root is normal size. Pericardium/Pleura There is no pericardial effusion. There is no obvious intracardiac vegetations seen. Interpretation Summary There is mild concentric left ventricular hypertrophy. The transmitral spectral Doppler flow pattern is suggestive of pseudonormalization. The right ventricle is normal size. A device wire is noted in the right heart. The right ventricular systolic function is normal. The left atrium is severely dilated. There is moderate mitral annular calcification. There is significant prolapse vs partial flail of the posterior mitral valve leaflet. Severe, eccentric, anteriorly directed mitral regurgitation. There is mild to moderate tricuspid regurgitation. Right ventricular systolic pressure is elevated at 40-50mmHg. Fibrocalcific aortic valve disease without stenosis. Mild aortic regurgitation. Trace pulmonic valvular regurgitation. There is no pericardial effusion. There is no obvious intracardiac vegetations seen. MD Sonido Denney 03/28/2019 05:20 PM
[2019-03-28 17:37] LABS: BASO % 0.5 % (0-2.0); EOS % 0.6 % (0-4.5); HEMATOCRIT 39.3 % (32.4-45.2); HEMOGLOBIN 12.2 GM/dL (10.7-15.3); LYMPH % 5.4 % (8-40); MCH 29.1 pg (25.7-33.7); MCHC 31.1 g/dl (32.0-36.0); MEAN CELL VOLUME 93.5 fl (80-96); MEAN PLT VOLUME 10.9 fl (7.5-11.1); NEUT % 88.5 % (42.8-82.8); PLATELET COUNT 297 K/MM3 (134-434); RDW 17.5 % (11.6-15.6); WHITE BLOOD COUNT 18.7 K/mm3 (4.0-10.0)
--- NOTE | 2019-03-28 18:16 | PN ---
Progress Note, Physician - Current Medication List Current Medications: Active Medications Amiodarone HCl (Cordarone -) 100 mg PO DAILY [facility] Last Admin: 03/28/19 10:30 Dose: 100 mg Apixaban (Eliquis -) 2.5 mg PO BID [facility] Last Admin: 03/28/19 10:30 Dose: 2.5 mg Atorvastatin Calcium (Lipitor -) 10 mg PO HS [facility] Last Admin: 03/27/19 23:52 Dose: 10 mg Donepezil HCl (Aricept -) 10 mg PO DAILY [facility] Last Admin: 03/28/19 10:30 Dose: 10 mg Fluoxetine HCl (Prozac -) 20 mg PO DAILY [facility] Last Admin: 03/28/19 16:20 Dose: Not Given Dextrose (D5w -) 1,000 mls @ 75 mls/hr IV ASDIR [facility] Last Admin: 03/28/19 18:10 Dose: 75 mls/hr Ceftriaxone Sodium 2 gm/ (Dextrose) 100 mls @ 200 mls/hr IVPB DAILY [facility]; Protocol Memantine (Namenda -) 5 mg PO BID [facility] Last Admin: 03/28/19 10:30 Dose: 5 mg Metoprolol Succinate (Toprol Xl -) 25 mg PO DAILY [facility] Last Admin: 03/28/19 10:30 Dose: 25 mg Mirtazapine (Remeron -) 15 mg PO [facility] Pantoprazole Sodium (Protonix -) 40 mg PO DAILY [facility] Last Admin: 03/28/19 16:20 Dose: Not Given - Objective Vital Signs: Vital Signs Temperature 97.3 F L 03/28/19 16:17 Pulse Rate 71 03/28/19 16:17 Respiratory Rate 20 03/28/19 16:17 Blood Pressure 117/68 03/28/19 16:17 O2 Sat by Pulse Oximetry (%) 97 03/28/19 16:17 Constitutional: Yes: No Distress HENT: Yes: Atraumatic Neck: Yes: Supple Cardiovascular: Yes: Regular Rate and Rhythm Respiratory: Yes: CTA Bilaterally Gastrointestinal: Yes: Normal Bowel Sounds Extremities: Yes: WNL Edema: No Neurological: Yes: Alert, Oriented Labs: CBC, BMP 03/28/19 17:00 Problem List - Problems (1) LILLIE (acute kidney injury) Code(s): N17.9 - ACUTE KIDNEY FAILURE, UNSPECIFIED (2) Elevated troponin Assessment/Plan: monitor demand ischemia? cardio consult Code(s): R74.8 - ABNORMAL LEVELS OF OTHER SERUM ENZYMES (3) CHF (congestive heart failure) Code(s): I50.9 - HEART FAILURE, UNSPECIFIED (4) Dementia Code(s): F03.90 - UNSPECIFIED DEMENTIA WITHOUT BEHAVIORAL DISTURBANCE (5) GERD (gastroesophageal reflux disease) Code(s): K21.9 - GASTRO-ESOPHAGEAL REFLUX DISEASE WITHOUT ESOPHAGITIS (6) Atrial fibrillation Assessment/Plan: on meds Code(s): I48.91 - UNSPECIFIED ATRIAL FIBRILLATION Qualifiers: Atrial fibrillation type: paroxysmal Qualified Code(s): I48.0 - Paroxysmal atrial fibrillation (7) HTN (hypertension) Assessment/Plan: on meds monitor Code(s): I10 - ESSENTIAL (PRIMARY) HYPERTENSION (8) Positive blood culture Assessment/Plan: on abx id consult Code(s): R78.81 - BACTEREMIA
[2019-03-28 18:37] LABS: CALCIUM 8.7 mg/dL (8.5-10.1); POTASSIUM 3.3 mmol/L (3.5-5.1)
[2019-03-28 18:41] LABS: BLOOD UREA NITROGEN 134.9 mg/dL (7-18)
[2019-03-28] MEDS ORDERED: VANCOMYCIN 500 MG in DEXTROSE 5%-WATER - 100 ML IVPB ONE (21:37)
[2019-03-28] MEDS: MIRTAZAPINE 15 MG TABLET (FP) PO SCH (22:22)
[2019-03-28] MEDS: ATORVASTATIN CA 10 MG TABLET (FP) PO SCH (22:22)
[2019-03-29 06:57] LABS: BASO % 0.2 % (0-2.0); EOS % 1.2 % (0-4.5); HEMATOCRIT 36.6 % (32.4-45.2); HEMOGLOBIN 11.4 GM/dL (10.7-15.3); LYMPH % 7.8 % (8-40); MEAN CELL VOLUME 93.7 fl (80-96); MONO % 5.3 % (3.8-10.2); NEUT % 85.5 % (42.8-82.8); PLATELET COUNT 252 K/MM3 (134-434); RBC 3.91 M/mm3 (3.60-5.2); RDW 18.2 % (11.6-15.6); WHITE BLOOD COUNT 13.4 K/mm3 (4.0-10.0)
[2019-03-29 07:38] LABS: ALBUMIN 2.3 g/dl (3.4-5.0); BILIRUBIN,TOTAL 0.4 mg/dL (0.2-1); CALCIUM 8.7 mg/dL (8.5-10.1); CREATININE 2.9 mg/dL (0.55-1.3); POTASSIUM 3.4 mmol/L (3.5-5.1)
[2019-03-29 07:42] LABS: BLOOD UREA NITROGEN 129.5 mg/dL (7-18)
[2019-03-29 08:04] LABS: MAGNESIUM 3.2 mg/dL (1.8-2.4)
[2019-03-29] MEDS ORDERED: DEXTROSE 5%-WATER - 1,000 ML IV SCH (08:21)
[2019-03-29] MEDS ORDERED: POTASSIUM CHLORIDE ORAL LIQUID 20 MEQ/15 ML PO ONE (08:30)
[2019-03-29] MEDS ORDERED: DEXTROSE 5%-WATER 100 ML IVPB ONE (08:34)
[2019-03-29] MEDS ORDERED: CEFTRIAXONE 2 GM in DEXTROSE 5%-WATER 100 ML IVPB SCH (10:00)
--- NOTE | 2019-03-29 10:08 | PN ---
Progress Note (short form) - Note Progress Note: alert no distress feels lousy received vancomycin last night Vital Signs Period Temp Pulse Resp BP Sys/Rice Pulse Ox Last 24 Hr 96.3 F-97.4 F 52-71 20-20 104-127/51-68 97-97 cor-rrr 3/6 ry llungs decreased bs at bases abd soft, nt ext no edema dry oral mucosa argueta CBC, BMP 03/29/19 06:08 03/29/19 06:08 Microbiology 03/27/19 16:34 Urine - Urine Clean Catch Urine Culture - Final Contaminated: Please Repeat 03/27/19 15:55 Blood - Peripheral Venous Blood Culture - Preliminary Group D Strep Or Entero Coccus 03/27/19 15:55 Blood - Peripheral Venous Blood Culture - Preliminary Group D Strep Or Entero Coccus blood cultures 03/28 pending Current Medications Amiodarone HCl (Cordarone -) 100 mg PO DAILY [facility] Last Admin: 03/28/19 10:30 Dose: 100 mg Apixaban (Eliquis -) 2.5 mg PO BID [facility] Last Admin: 03/28/19 22:22 Dose: 2.5 mg Atorvastatin Calcium (Lipitor -) 10 mg PO HS [facility] Last Admin: 03/28/19 22:22 Dose: 10 mg Donepezil HCl (Aricept -) 10 mg PO DAILY [facility] Last Admin: 03/28/19 10:30 Dose: 10 mg Fluoxetine HCl (Prozac -) 20 mg PO DAILY [facility] Last Admin: 03/28/19 16:20 Dose: Not Given Ceftriaxone Sodium 2 gm/ (Dextrose) 100 mls @ 200 mls/hr IVPB DAILY [facility]; Protocol Dextrose (D5w -) 1,000 mls @ 83 mls/hr IV ASDIR [facility] Memantine (Namenda -) 5 mg PO BID [facility] Last Admin: 03/28/19 22:22 Dose: 5 mg Metoprolol Succinate (Toprol Xl -) 25 mg PO DAILY [facility] Last Admin: 03/28/19 10:30 Dose: 25 mg Mirtazapine (Remeron -) 15 mg PO HS [facility] Last Admin: 03/28/19 22:22 Dose: 15 mg Pantoprazole Sodium (Protonix -) 40 mg PO DAILY [facility] Last Admin: 03/28/19 16:20 Dose: Not Given echo+valvular disease, no obvious vegetations noted Laboratory Tests 03/28/19 03/29/19 17:00 06:08 Random Vancomycin 16.0 L 12.9 L a/p enterococcal bacteremia repeat blood cultures pending urine culture contaminated and not helpful acute renal failure valvular heart disease PPM r/o endocarditis-f/u blood culture for sensitivity continue vancomycin by level-redose today continue ceftriaxone repeat blood cultures sent and pending echo noted-will d/w cardiology ivf ampicillin and vancomycin for now pending culture results Problem List - Problems (1) Positive blood culture Code(s): R78.81 - BACTEREMIA (2) LILLIE (acute kidney injury) Code(s): N17.9 - ACUTE KIDNEY FAILURE, UNSPECIFIED (3) Mitral valve regurgitation Code(s): I34.0 - NONRHEUMATIC MITRAL (VALVE) INSUFFICIENCY (4) Pacemaker Code(s): Z95.0 - PRESENCE OF CARDIAC PACEMAKER
[2019-03-29] MEDS: PANTOPRAZOLE 40 MG TABLET (FP) PO SCH (10:16)
[2019-03-29] MEDS: FLUoxetine HCL 20 MG CAPSULE (FP) PO SCH (10:16)
[2019-03-29] MEDS: metoPROLOL SUCCINATE 25 MG TAB.SR.24H (FP) PO SCH (10:16)
[2019-03-29] MEDS: APIXABAN 2.5 MG TABLET PO SCH ×2 (10:16→23:18)
[2019-03-29] MEDS: MEMANTINE HCL 5 MG TABLET (UD) PO SCH ×2 (10:16→23:18)
[2019-03-29] MEDS: DONEPEZIL HCL 10 MG TABLET (FP) PO SCH (10:17)
[2019-03-29] MEDS: AMIODARONE HCL 200 MG TABLET (FP) PO SCH (10:17)
[2019-03-29] MEDS ORDERED: VANCOMYCIN 1 GRAM (PRE-DOCKED) 1,000 MG/250 ML BAG IVPB ONE (10:30)
[2019-03-29] MEDS: AMPICILLIN - 2 GM in SODIUM CHLORIDE 100 ML IVPB SCH ×2 (11:26→18:55)
--- NOTE | 2019-03-29 11:37 | PN ---
Progress Note (short form) - Note Progress Note: s: no chest pain, palps, dizziness, dyspnea. feels dry Vital Signs Period Temp Pulse Resp BP Sys/Rice Pulse Ox Last 24 Hr 96.3 F-97.4 F 52-71 20-20 104-127/51-68 97-97 NAD nl s1, s2, rrr CTAB soft, nt, nd +bs no edema no jaundice, diaphoresis aox3 not agitated Current Medications Amiodarone HCl (Cordarone -) 100 mg PO DAILY [facility] Last Admin: 03/29/19 10:17 Dose: 100 mg Apixaban (Eliquis -) 2.5 mg PO BID [facility] Last Admin: 03/29/19 10:16 Dose: 2.5 mg Atorvastatin Calcium (Lipitor -) 10 mg PO HS [facility] Last Admin: 03/28/19 22:22 Dose: 10 mg Donepezil HCl (Aricept -) 10 mg PO DAILY [facility] Last Admin: 03/29/19 10:17 Dose: 10 mg Fluoxetine HCl (Prozac -) 20 mg PO DAILY [facility] Last Admin: 03/29/19 10:16 Dose: 20 mg Dextrose (D5w -) 1,000 mls @ 83 mls/hr IV ASDIR [facility] Last Admin: 03/29/19 10:19 Dose: 83 mls/hr Vancomycin HCl (Vancomycin (Pre-Docked)) 1,000 mg in 250 mls @ 166.667 mls/hr IVPB ONCE ONE; Protocol Stop: 03/29/19 11:59 Last Admin: 03/29/19 11:29 Dose: 166.667 mls/hr Ampicillin Sodium 2 gm/ Sodium (Chloride) 100 mls @ 200 mls/hr IVPB Q8H-IV [facility] ; Protocol Last Admin: 03/29/19 11:26 Dose: 200 mls/hr Memantine (Namenda -) 5 mg PO BID [facility] Last Admin: 03/29/19 10:16 Dose: 5 mg Metoprolol Succinate (Toprol Xl -) 25 mg PO DAILY [facility] Last Admin: 03/29/19 10:16 Dose: 25 mg Mirtazapine (Remeron -) 15 mg PO HS [facility] Last Admin: 03/28/19 22:22 Dose: 15 mg Pantoprazole Sodium (Protonix -) 40 mg PO DAILY [facility] Last Admin: 03/29/19 10:16 Dose: 40 mg Assessment/Plan CXR: clear lungs/pleura EKG sinus, prolonged QTc 515 ms, stable compared to prior echo 03/2019 mild conc LVH, pseudonormalization, RV nl, PPM in R heart, RV function nl, LA severely dilated, mod MAC, significant prolapse vs partial flail of post mitral leaflet, severe eccentric anteriorly directed MR, mild to mod TR, RVSP elevated 40-50 mmHg, mild AR, no obvoius intracardiac vegetations seen tele: sinus sepsis, bacteremia, UTI - manage per ID - no obvious vegetation on echo dehydration, hypernatremia, LILLIE - weakness, dehydration improved with IVF - cautious use of IVF given severe MR, recent admissions for CHF - renal consulted elevated trop - indeterminate range, flat trend, no ischemic changes - less likely ACS - likely demand in setting of sepsis chronic diastolic chf, severe MR: - currently dry - holding lasix, IVF as above - monitor volume status PAF: -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
--- NOTE | 2019-03-29 12:21 | PN ---
Progress Note, Physician History of Present Illness: Pt seen and examined at bedside. She is more awake and alert today. - Current Medication List Current Medications: Active Medications Amiodarone HCl (Cordarone -) 100 mg PO DAILY [facility] Last Admin: 03/29/19 10:17 Dose: 100 mg Apixaban (Eliquis -) 2.5 mg PO BID [facility] Last Admin: 03/29/19 10:16 Dose: 2.5 mg Atorvastatin Calcium (Lipitor -) 10 mg PO HS [facility] Last Admin: 03/28/19 22:22 Dose: 10 mg Donepezil HCl (Aricept -) 10 mg PO DAILY [facility] Last Admin: 03/29/19 10:17 Dose: 10 mg Fluoxetine HCl (Prozac -) 20 mg PO DAILY [facility] Last Admin: 03/29/19 10:16 Dose: 20 mg Dextrose (D5w -) 1,000 mls @ 83 mls/hr IV ASDIR [facility] Last Admin: 03/29/19 10:19 Dose: 83 mls/hr Ampicillin Sodium 2 gm/ Sodium (Chloride) 100 mls @ 200 mls/hr IVPB Q8H-IV [facility] ; Protocol Last Admin: 03/29/19 11:26 Dose: 200 mls/hr Memantine (Namenda -) 5 mg PO BID [facility] Last Admin: 03/29/19 10:16 Dose: 5 mg Metoprolol Succinate (Toprol Xl -) 25 mg PO DAILY [facility] Last Admin: 03/29/19 10:16 Dose: 25 mg Mirtazapine (Remeron -) 15 mg PO HS [facility] Last Admin: 03/28/19 22:22 Dose: 15 mg Pantoprazole Sodium (Protonix -) 40 mg PO DAILY [facility] Last Admin: 03/29/19 10:16 Dose: 40 mg - Objective Vital Signs: Vital Signs Temperature 97.4 F L 03/29/19 08:06 Pulse Rate 67 03/29/19 08:06 Respiratory Rate 20 03/29/19 08:08 Blood Pressure 104/54 L 03/29/19 08:06 O2 Sat by Pulse Oximetry (%) 97 03/29/19 08:08 Constitutional: Yes: Calm Eyes: Yes: Conjunctiva Clear HENT: Yes: Atraumatic Neck: Yes: Supple Cardiovascular: Yes: S1, S2 Gastrointestinal: Yes: Soft Genitourinary: Yes: Cervantes Present Musculoskeletal: Yes: Muscle Weakness Edema: No Neurological: Yes: Oriented Psychiatric: Yes: Oriented Labs: CBC, BMP 03/29/19 06:08 03/29/19 06:08 Problem List - Problems (1) LILLIE (acute kidney injury) Code(s): N17.9 - ACUTE KIDNEY FAILURE, UNSPECIFIED (2) Hypernatremia Code(s): E87.0 - HYPEROSMOLALITY AND HYPERNATREMIA Assessment/Plan Current Medications Generic Name Dose Route Start Last Admin Trade Name Freq PRN Reason Stop Dose Admin Amiodarone HCl 100 mg 03/28/19 10:00 03/29/19 10:17 Cordarone - PO 100 mg DAILY [facility] Administration Apixaban 2.5 mg 03/27/19 22:00 03/29/19 10:16 Eliquis - PO 2.5 mg BID [facility] Administration Atorvastatin Calcium 10 mg 03/27/19 22:00 03/28/19 22:22 Lipitor - PO 10 mg HS [facility] Administration Donepezil HCl 10 mg 03/28/19 10:00 03/29/19 10:17 Aricept - PO 10 mg DAILY [facility] Administration Fluoxetine HCl 20 mg 03/28/19 13:00 03/29/19 10:16 Prozac - PO 20 mg DAILY [facility] Administration Dextrose 1,000 mls @ 83 mls/hr 03/29/19 08:21 03/29/19 10:19 D5w - IV 83 mls/hr ASDIR [facility] Administration Ampicillin Sodium 2 gm/ Sodium 100 mls @ 200 mls/hr 03/29/19 10:30 03/29/19 11:26 Chloride IVPB 200 mls/hr Q8H-IV [facility] Administration Protocol Memantine 5 mg 03/27/19 22:00 03/29/19 10:16 Namenda - PO 5 mg BID [facility] Administration Metoprolol Succinate 25 mg 03/28/19 10:00 03/29/19 10:16 Toprol Xl - PO 25 mg DAILY [facility] Administration Mirtazapine 15 mg 03/28/19 22:00 03/28/19 22:22 Remeron - PO 15 mg HS [facility] Administration Pantoprazole Sodium 40 mg 03/28/19 13:00 03/29/19 10:16 Protonix - PO 40 mg DAILY [facility] Administration Impression 1. LILLIE 2. chf 3. mitral regurg 4. dementia 5. a-fib 6. hld 7. solitary right kidney 8. UTI 9. right side hydro 10. bacteremia Plan - replace potassium - cont d5w - monitor sodium - monitor renal function - hold diuretics - monitor output
--- NOTE | 2019-03-29 14:49 | PN ---
Progress Note, Physician - Current Medication List Current Medications: Active Medications Amiodarone HCl (Cordarone -) 100 mg PO DAILY [facility] Last Admin: 03/29/19 10:17 Dose: 100 mg Apixaban (Eliquis -) 2.5 mg PO BID [facility] Last Admin: 03/29/19 10:16 Dose: 2.5 mg Atorvastatin Calcium (Lipitor -) 10 mg PO HS [facility] Last Admin: 03/28/19 22:22 Dose: 10 mg Donepezil HCl (Aricept -) 10 mg PO DAILY [facility] Last Admin: 03/29/19 10:17 Dose: 10 mg Fluoxetine HCl (Prozac -) 20 mg PO DAILY [facility] Last Admin: 03/29/19 10:16 Dose: 20 mg Dextrose (D5w -) 1,000 mls @ 83 mls/hr IV ASDIR [facility] Last Admin: 03/29/19 10:19 Dose: 83 mls/hr Ampicillin Sodium 2 gm/ Sodium (Chloride) 100 mls @ 200 mls/hr IVPB Q8H-IV [facility] ; Protocol Last Admin: 03/29/19 11:26 Dose: 200 mls/hr Memantine (Namenda -) 5 mg PO BID [facility] Last Admin: 03/29/19 10:16 Dose: 5 mg Metoprolol Succinate (Toprol Xl -) 25 mg PO DAILY [facility] Last Admin: 03/29/19 10:16 Dose: 25 mg Mirtazapine (Remeron -) 15 mg PO HS [facility] Last Admin: 03/28/19 22:22 Dose: 15 mg Pantoprazole Sodium (Protonix -) 40 mg PO DAILY [facility] Last Admin: 03/29/19 10:16 Dose: 40 mg - Objective Vital Signs: Vital Signs Temperature 97.7 F 03/29/19 13:35 Pulse Rate 68 03/29/19 13:35 Respiratory Rate 20 03/29/19 13:35 Blood Pressure 111/56 L 03/29/19 13:35 O2 Sat by Pulse Oximetry (%) 97 03/29/19 08:08 Constitutional: Yes: No Distress HENT: Yes: Atraumatic Neck: Yes: Supple Cardiovascular: Yes: Regular Rate and Rhythm Respiratory: Yes: CTA Bilaterally Gastrointestinal: Yes: Normal Bowel Sounds Extremities: Yes: WNL Edema: No Peripheral Pulses WNL: Yes Neurological: Yes: Alert Labs: CBC, BMP 03/29/19 06:08 03/29/19 06:08 Problem List - Problems (1) LILLIE (acute kidney injury) Code(s): N17.9 - ACUTE KIDNEY FAILURE, UNSPECIFIED (2) Elevated troponin Assessment/Plan: monitor demand ischemia? cardio consult Code(s): R74.8 - ABNORMAL LEVELS OF OTHER SERUM ENZYMES (3) CHF (congestive heart failure) Code(s): I50.9 - HEART FAILURE, UNSPECIFIED (4) Dementia Code(s): F03.90 - UNSPECIFIED DEMENTIA WITHOUT BEHAVIORAL DISTURBANCE (5) GERD (gastroesophageal reflux disease) Code(s): K21.9 - GASTRO-ESOPHAGEAL REFLUX DISEASE WITHOUT ESOPHAGITIS (6) Atrial fibrillation Assessment/Plan: on meds Code(s): I48.91 - UNSPECIFIED ATRIAL FIBRILLATION Qualifiers: Atrial fibrillation type: paroxysmal Qualified Code(s): I48.0 - Paroxysmal atrial fibrillation (7) HTN (hypertension) Assessment/Plan: on meds monitor Code(s): I10 - ESSENTIAL (PRIMARY) HYPERTENSION (8) Positive blood culture Assessment/Plan: on abx id consult Code(s): R78.81 - BACTEREMIA
[2019-03-29] MEDS: ATORVASTATIN CA 10 MG TABLET (FP) PO SCH (23:18)
[2019-03-29] MEDS: MIRTAZAPINE 15 MG TABLET (FP) PO SCH (23:18)
[2019-03-30] MEDS ORDERED: PT OWN MED DRAWER 7, Y5N ONE ×4 (02:06→17:48)
[2019-03-30] MEDS: AMPICILLIN - 2 GM in SODIUM CHLORIDE 100 ML IVPB SCH ×3 (02:10→17:55)
[2019-03-30 09:18] LABS: ALBUMIN 2.3 g/dl (3.4-5.0); BILIRUBIN,TOTAL 0.4 mg/dL (0.2-1); BLOOD UREA NITROGEN 96.9 mg/dL (7-18); CALCIUM 8.3 mg/dL (8.5-10.1); CREATININE 2.5 mg/dL (0.55-1.3); POTASSIUM 3.2 mmol/L (3.5-5.1)
--- NOTE | 2019-03-30 11:37 | PN ---
Progress Note (short form) - Note Progress Note: s: no chest pain, palps, dizziness, dyspnea. Current Medications Generic Name Dose Route Start Last Admin Trade Name Jose PRN Reason Stop Dose Admin Amiodarone HCl 100 mg 03/28/19 10:00 03/29/19 10:17 Cordarone - PO 100 mg DAILY PETTY Administration Apixaban 2.5 mg 03/27/19 22:00 03/29/19 23:18 Eliquis - PO 2.5 mg BID PETTY Administration Atorvastatin Calcium 10 mg 03/27/19 22:00 03/29/19 23:18 Lipitor - PO 10 mg HS EPTTY Administration Donepezil HCl 10 mg 03/28/19 10:00 03/29/19 10:17 Aricept - PO 10 mg DAILY PETTY Administration Fluoxetine HCl 20 mg 03/28/19 13:00 03/29/19 10:16 Prozac - PO 20 mg DAILY PETTY Administration Dextrose 1,000 mls @ 83 mls/hr 03/29/19 08:21 03/29/19 10:19 D5w - IV 83 mls/hr ASDIR PETTY Administration Ampicillin Sodium 2 gm/ Sodium 100 mls @ 200 mls/hr 03/29/19 10:30 03/30/19 02:10 Chloride IVPB 200 mls/hr Q8H-IV PETTY Administration Protocol Memantine 5 mg 03/27/19 22:00 03/29/19 23:18 Namenda - PO 5 mg BID PETTY Administration Metoprolol Succinate 25 mg 03/28/19 10:00 03/29/19 10:16 Toprol Xl - PO 25 mg DAILY PETTY Administration Mirtazapine 15 mg 03/28/19 22:00 03/29/19 23:18 Remeron - PO 15 mg HS PETTY Administration Pantoprazole Sodium 40 mg 03/28/19 13:00 03/29/19 10:16 Protonix - PO 40 mg DAILY PETTY Administration Vital Signs Period Temp Pulse Resp BP Sys/Rice Pulse Ox Last 24 Hr 97.5 F-97.9 F 64-68 18-20 109-114/53-60 95 NAD nl s1, s2, rrr CTAB soft, nt, nd +bs no edema no jaundice, diaphoresis aox3 not agitated CBC, BMP 03/29/19 06:08 03/30/19 07:45 Assessment/Plan CXR: clear lungs/pleura EKG sinus, prolonged QTc 515 ms, stable compared to prior echo 03/2019 mild conc LVH, pseudonormalization, RV nl, PPM in R heart, RV function nl, LA severely dilated, mod MAC, significant prolapse vs partial flail of post mitral leaflet, severe eccentric anteriorly directed MR, mild to mod TR, RVSP elevated 40-50 mmHg, mild AR, no obvoius intracardiac vegetations seen tele: sinus sepsis, bacteremia, UTI - manage per ID - no obvious vegetation on echo. repeat bld cx ngtd dehydration, hypernatremia, LILLIE - weakness, dehydration improved with IVF - cautious use of IVF given severe MR, recent admissions for CHF - renal consulted elevated trop - indeterminate range, flat trend, no ischemic changes - less likely ACS - likely demand in setting of sepsis chronic diastolic chf, severe MR: - currently dry - holding lasix, IVF as above - monitor volume status PAF: -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
[2019-03-30] MEDS: PANTOPRAZOLE 40 MG TABLET (FP) PO SCH (11:38)
[2019-03-30] MEDS: APIXABAN 2.5 MG TABLET PO SCH ×2 (11:38→21:40)
[2019-03-30] MEDS: AMIODARONE HCL 200 MG TABLET (FP) PO SCH (11:38)
[2019-03-30] MEDS: metoPROLOL SUCCINATE 25 MG TAB.SR.24H (FP) PO SCH (11:38)
[2019-03-30] MEDS ORDERED: POTASSIUM CHLORIDE ORAL LIQUID 20 MEQ/15 ML PO ONE (11:43)
--- NOTE | 2019-03-30 11:46 | PN ---
Progress Note, Physician History of Present Illness: Pt seen and examined at bedside. She is awake and appears comfortable. She denies shortness of breath. - Current Medication List Current Medications: Active Medications Amiodarone HCl (Cordarone -) 100 mg PO DAILY COUNTS INCLUDE 234 BEDS AT THE [facility] Last Admin: 03/30/19 11:38 Dose: 100 mg Apixaban (Eliquis -) 2.5 mg PO BID COUNTS INCLUDE 234 BEDS AT THE [facility] Last Admin: 03/30/19 11:38 Dose: 2.5 mg Atorvastatin Calcium (Lipitor -) 10 mg PO HS COUNTS INCLUDE 234 BEDS AT THE [facility] Last Admin: 03/29/19 23:18 Dose: 10 mg Donepezil HCl (Aricept -) 10 mg PO DAILY COUNTS INCLUDE 234 BEDS AT THE [facility] Last Admin: 03/29/19 10:17 Dose: 10 mg Fluoxetine HCl (Prozac -) 20 mg PO DAILY COUNTS INCLUDE 234 BEDS AT THE [facility] Last Admin: 03/29/19 10:16 Dose: 20 mg Dextrose (D5w -) 1,000 mls @ 83 mls/hr IV ASDIR COUNTS INCLUDE 234 BEDS AT THE [facility] Last Admin: 03/29/19 10:19 Dose: 83 mls/hr Ampicillin Sodium 2 gm/ Sodium (Chloride) 100 mls @ 200 mls/hr IVPB Q8H-IV PETTY ; Protocol Last Admin: 03/30/19 11:38 Dose: 200 mls/hr Memantine (Namenda -) 5 mg PO BID COUNTS INCLUDE 234 BEDS AT THE [facility] Last Admin: 03/29/19 23:18 Dose: 5 mg Metoprolol Succinate (Toprol Xl -) 25 mg PO DAILY COUNTS INCLUDE 234 BEDS AT THE [facility] Last Admin: 03/30/19 11:38 Dose: 25 mg Mirtazapine (Remeron -) 15 mg PO HS COUNTS INCLUDE 234 BEDS AT THE [facility] Last Admin: 03/29/19 23:18 Dose: 15 mg Pantoprazole Sodium (Protonix -) 40 mg PO DAILY COUNTS INCLUDE 234 BEDS AT THE [facility] Last Admin: 03/30/19 11:38 Dose: 40 mg Potassium Chloride (Potassium Chloride Oral Liquid) 40 meq PO ONCE ONE Stop: 03/30/19 11:44 - Objective Vital Signs: Vital Signs Temperature 97.7 F 03/29/19 21:00 Pulse Rate 64 03/29/19 21:00 Respiratory Rate 20 03/29/19 21:00 Blood Pressure 113/53 L 03/29/19 21:00 O2 Sat by Pulse Oximetry (%) 95 03/29/19 21:00 Constitutional: Yes: Calm Eyes: Yes: Conjunctiva Clear HENT: Yes: Atraumatic Neck: Yes: Supple Cardiovascular: Yes: Murmur, S1, S2 Respiratory: Yes: CTA Bilaterally Gastrointestinal: Yes: Soft Genitourinary: Yes: WNL Edema: No Neurological: Yes: Confusion Psychiatric: Yes: Oriented Labs: CBC, BMP 03/29/19 06:08 03/30/19 07:45 Problem List - Problems (1) LILLIE (acute kidney injury) Code(s): N17.9 - ACUTE KIDNEY FAILURE, UNSPECIFIED (2) Hypernatremia Code(s): E87.0 - HYPEROSMOLALITY AND HYPERNATREMIA Assessment/Plan Current Medications Generic Name Dose Route Start Last Admin Trade Name Freq PRN Reason Stop Dose Admin Amiodarone HCl 100 mg 03/28/19 10:00 03/30/19 11:38 Cordarone - PO 100 mg DAILY PETTY Administration Apixaban 2.5 mg 03/27/19 22:00 03/30/19 11:38 Eliquis - PO 2.5 mg BID PETTY Administration Atorvastatin Calcium 10 mg 03/27/19 22:00 03/29/19 23:18 Lipitor - PO 10 mg HS PETTY Administration Donepezil HCl 10 mg 03/28/19 10:00 03/29/19 10:17 Aricept - PO 10 mg DAILY PETTY Administration Fluoxetine HCl 20 mg 03/28/19 13:00 03/29/19 10:16 Prozac - PO 20 mg DAILY PETTY Administration Dextrose 1,000 mls @ 83 mls/hr 03/29/19 08:21 03/29/19 10:19 D5w - IV 83 mls/hr ASDIR PETTY Administration Ampicillin Sodium 2 gm/ Sodium 100 mls @ 200 mls/hr 03/29/19 10:30 03/30/19 11:38 Chloride IVPB 200 mls/hr Q8H-IV PETTY Administration Protocol Memantine 5 mg 03/27/19 22:00 03/29/19 23:18 Namenda - PO 5 mg BID PETTY Administration Metoprolol Succinate 25 mg 03/28/19 10:00 03/30/19 11:38 Toprol Xl - PO 25 mg DAILY PETTY Administration Mirtazapine 15 mg 03/28/19 22:00 03/29/19 23:18 Remeron - PO 15 mg HS PETTY Administration Pantoprazole Sodium 40 mg 03/28/19 13:00 03/30/19 11:38 Protonix - PO 40 mg DAILY PETTY Administration Potassium Chloride 40 meq 03/30/19 11:43 Potassium Chloride Oral Liquid PO 03/30/19 11:44 ONCE ONE Microbiology 03/28/19 17:00 Blood - Peripheral Venous Blood Culture - Preliminary NO GROWTH OBTAINED AFTER 24 HOURS, INCUBATION TO CONTINUE FOR 4 DAYS. 03/28/19 17:00 Blood - Peripheral Venous Blood Culture - Preliminary NO GROWTH OBTAINED AFTER 24 HOURS, INCUBATION TO CONTINUE FOR 4 DAYS. 03/27/19 15:55 Blood - Peripheral Venous Blood Culture - Preliminary Group D Strep Or Entero Coccus 03/27/19 15:55 Blood - Peripheral Venous Blood Culture - Preliminary Enterococcus Faecalis Laboratory Tests 03/28/19 10:53 Sodium 157 H Potassium 3.1 L Impression 1. LILLIE 2. chf 3. mitral regurg 4. dementia 5. a-fib 6. hld 7. solitary right kidney 8. UTI 9. right side hydro 10. bacteremia 11. hypernatremia 12. hypokalemia Plan - replace potassium - add potassium to fluids - monitor sodium - renal function improving - hold diuretics and monitor volume status closely - follow repeat cultures - monitor output
[2019-03-30] MEDS: DONEPEZIL HCL 10 MG TABLET (FP) PO SCH (11:47)
[2019-03-30] MEDS: FLUoxetine HCL 20 MG CAPSULE (FP) PO SCH (11:47)
[2019-03-30] MEDS: MEMANTINE HCL 5 MG TABLET (UD) PO SCH ×2 (11:47→21:40)
--- NOTE | 2019-03-30 15:00 | PN ---
Progress Note (short form) - Note Progress Note: alert no distress feels better today Vital Signs Period Temp Pulse Resp BP Sys/Rice Pulse Ox Last 24 Hr 97.5 F-97.9 F 64-67 18-20 109-114/53-60 95 corRRR murmur unchanged lungs clear abd soft,nt ext no edema argueta CBC, BMP 03/29/19 06:08 03/30/19 07:45 Microbiology 03/27/19 15:55 Blood - Peripheral Venous Blood Culture - Final Enterococcus Faecalis 03/27/19 15:55 Blood - Peripheral Venous Blood Culture - Final Enterococcus Faecalis 03/28/19 17:00 Blood - Peripheral Venous Blood Culture - Preliminary NO GROWTH OBTAINED AFTER 24 HOURS, INCUBATION TO CONTINUE FOR 4 DAYS. 03/28/19 17:00 Blood - Peripheral Venous Blood Culture - Preliminary NO GROWTH OBTAINED AFTER 24 HOURS, INCUBATION TO CONTINUE FOR 4 DAYS. 03/27/19 16:34 Urine - Urine Clean Catch Urine Culture - Final Contaminated: Please Repeat echo+valvular disease, no obvious vegetations noted a/p enterococcal bacteremia repeat blood culture negative suspect urinary source with pyuria on admission valvular heart disease PPM continue ampicillin will d/w cardiology spoke with zoey at length at bedside Problem List - Problems (1) Positive blood culture Code(s): R78.81 - BACTEREMIA (2) LILLIE (acute kidney injury) Code(s): N17.9 - ACUTE KIDNEY FAILURE, UNSPECIFIED (3) Mitral valve regurgitation Code(s): I34.0 - NONRHEUMATIC MITRAL (VALVE) INSUFFICIENCY (4) Pacemaker Code(s): Z95.0 - PRESENCE OF CARDIAC PACEMAKER
--- NOTE | 2019-03-30 16:20 | PN ---
Progress Note, Physician History of Present Illness: stable - Current Medication List Current Medications: Active Medications Amiodarone HCl (Cordarone -) 100 mg PO DAILY [facility] Last Admin: 03/30/19 11:38 Dose: 100 mg Apixaban (Eliquis -) 2.5 mg PO BID [facility] Last Admin: 03/30/19 11:38 Dose: 2.5 mg Atorvastatin Calcium (Lipitor -) 10 mg PO HS [facility] Last Admin: 03/29/19 23:18 Dose: 10 mg Donepezil HCl (Aricept -) 10 mg PO DAILY [facility] Last Admin: 03/30/19 11:47 Dose: 10 mg Fluoxetine HCl (Prozac -) 20 mg PO DAILY [facility] Last Admin: 03/30/19 11:47 Dose: 20 mg Ampicillin Sodium 2 gm/ Sodium (Chloride) 100 mls @ 200 mls/hr IVPB Q8H-IV [facility] ; Protocol Last Admin: 03/30/19 11:38 Dose: 200 mls/hr Potassium Chloride 20 meq/ (Dextrose) 1,010 mls @ 83 mls/hr IVPB Q12H [facility] Memantine (Namenda -) 5 mg PO BID [facility] Last Admin: 03/30/19 11:47 Dose: 5 mg Metoprolol Succinate (Toprol Xl -) 25 mg PO DAILY [facility] Last Admin: 03/30/19 11:38 Dose: 25 mg Mirtazapine (Remeron -) 15 mg PO [facility] Last Admin: 03/29/19 23:18 Dose: 15 mg Pantoprazole Sodium (Protonix -) 40 mg PO DAILY [facility] Last Admin: 03/30/19 11:38 Dose: 40 mg - Objective Vital Signs: Vital Signs Temperature 97.7 F 03/29/19 21:00 Pulse Rate 66 03/30/19 09:00 Respiratory Rate 18 03/30/19 09:00 Blood Pressure 113/56 L 03/30/19 09:00 O2 Sat by Pulse Oximetry (%) 95 03/29/19 21:00 Constitutional: Yes: No Distress HENT: Yes: Atraumatic Neck: Yes: Supple Cardiovascular: Yes: Regular Rate and Rhythm Respiratory: Yes: CTA Bilaterally Gastrointestinal: Yes: Normal Bowel Sounds Extremities: Yes: WNL Edema: No Neurological: Yes: Alert, Oriented Labs: CBC, BMP 03/29/19 06:08 03/30/19 07:45 Problem List - Problems (1) LILLIE (acute kidney injury) Code(s): N17.9 - ACUTE KIDNEY FAILURE, UNSPECIFIED (2) Elevated troponin Assessment/Plan: monitor Code(s): R74.8 - ABNORMAL LEVELS OF OTHER SERUM ENZYMES (3) CHF (congestive heart failure) Code(s): I50.9 - HEART FAILURE, UNSPECIFIED (4) Dementia Code(s): F03.90 - UNSPECIFIED DEMENTIA WITHOUT BEHAVIORAL DISTURBANCE (5) GERD (gastroesophageal reflux disease) Code(s): K21.9 - GASTRO-ESOPHAGEAL REFLUX DISEASE WITHOUT ESOPHAGITIS (6) Atrial fibrillation Assessment/Plan: on meds Code(s): I48.91 - UNSPECIFIED ATRIAL FIBRILLATION Qualifiers: Atrial fibrillation type: paroxysmal Qualified Code(s): I48.0 - Paroxysmal atrial fibrillation (7) HTN (hypertension) Assessment/Plan: on meds monitor Code(s): I10 - ESSENTIAL (PRIMARY) HYPERTENSION (8) Positive blood culture Assessment/Plan: on abx id consult Code(s): R78.81 - BACTEREMIA
[2019-03-30] MEDS: POTASSIUM CHLORIDE 20 MEQ in DEXTROSE 5%-WATER - 1,000 ML IVPB SCH (17:52)
[2019-03-30] MEDS ORDERED: DEXTROSE 5%-WATER 100 ML IVPB ONE (20:08)
[2019-03-30] MEDS: CEFTRIAXONE 2 GM in DEXTROSE 5%-WATER 100 ML IVPB SCH (20:19)
[2019-03-30] MEDS: ATORVASTATIN CA 10 MG TABLET (FP) PO SCH (21:40)
[2019-03-30] MEDS: MIRTAZAPINE 15 MG TABLET (FP) PO SCH (21:41)
[2019-03-31] MEDS: AMPICILLIN - 2 GM in SODIUM CHLORIDE 100 ML IVPB SCH ×4 (01:24→23:25)
[2019-03-31] MEDS: POTASSIUM CHLORIDE 20 MEQ in DEXTROSE 5%-WATER - 1,000 ML IVPB SCH ×2 (01:25→14:45)
[2019-03-31] MEDS ORDERED: DEXTROSE 5%-WATER 100 ML IVPB ONE ×2 (05:26→17:18)
[2019-03-31] MEDS: CEFTRIAXONE 2 GM in DEXTROSE 5%-WATER 100 ML IVPB SCH ×2 (05:42→18:27)
[2019-03-31 06:47] LABS: BASO % 0.3 % (0-2.0); EOS % 1.7 % (0-4.5); HEMATOCRIT 33.1 % (32.4-45.2); HEMOGLOBIN 10.4 GM/dL (10.7-15.3); LYMPH % 9.2 % (8-40); MCH 29.4 pg (25.7-33.7); MCHC 31.4 g/dl (32.0-36.0); MEAN CELL VOLUME 93.7 fl (80-96); MEAN PLT VOLUME 10.6 fl (7.5-11.1); MONO % 5.5 % (3.8-10.2); NEUT % 83.3 % (42.8-82.8); PLATELET COUNT 179 K/MM3 (134-434); RBC 3.53 M/mm3 (3.60-5.2); RDW 17.7 % (11.6-15.6); WHITE BLOOD COUNT 8.6 K/mm3 (4.0-10.0)
[2019-03-31 07:30] LABS: BILIRUBIN,TOTAL 0.2 mg/dL (0.2-1); BLOOD UREA NITROGEN 70.7 mg/dL (7-18); CALCIUM 7.8 mg/dL (8.5-10.1); CREATININE 2.2 mg/dL (0.55-1.3); MAGNESIUM 2.6 mg/dL (1.8-2.4); POTASSIUM 3.1 mmol/L (3.5-5.1); TOT PROT 5.5 g/dl (6.4-8.2)
--- NOTE | 2019-03-31 10:20 | PN ---
Progress Note, Physician - Current Medication List Current Medications: Active Medications Amiodarone HCl (Cordarone -) 100 mg PO DAILY [facility] Last Admin: 03/30/19 11:38 Dose: 100 mg Apixaban (Eliquis -) 2.5 mg PO BID [facility] Last Admin: 03/30/19 21:40 Dose: 2.5 mg Atorvastatin Calcium (Lipitor -) 10 mg PO HS [facility] Last Admin: 03/30/19 21:40 Dose: 10 mg Donepezil HCl (Aricept -) 10 mg PO DAILY [facility] Last Admin: 03/30/19 11:47 Dose: 10 mg Fluoxetine HCl (Prozac -) 20 mg PO DAILY [facility] Last Admin: 03/30/19 11:47 Dose: 20 mg Ampicillin Sodium 2 gm/ Sodium (Chloride) 100 mls @ 200 mls/hr IVPB Q8H-IV [facility] ; Protocol Last Admin: 03/31/19 01:24 Dose: 200 mls/hr Potassium Chloride 20 meq/ (Dextrose) 1,010 mls @ 83 mls/hr IVPB Q12H [facility] Last Admin: 03/31/19 01:25 Dose: Not Given Ceftriaxone Sodium 2 gm/ (Dextrose) 100 mls @ 200 mls/hr IVPB Q12H [facility]; Protocol Last Admin: 03/31/19 05:42 Dose: 200 mls/hr Memantine (Namenda -) 5 mg PO BID [facility] Last Admin: 03/30/19 21:40 Dose: 5 mg Metoprolol Succinate (Toprol Xl -) 25 mg PO DAILY [facility] Last Admin: 03/30/19 11:38 Dose: 25 mg Mirtazapine (Remeron -) 15 mg PO HS [facility] Last Admin: 03/30/19 21:41 Dose: 15 mg Pantoprazole Sodium (Protonix -) 40 mg PO DAILY [facility] Last Admin: 03/30/19 11:38 Dose: 40 mg - Objective Vital Signs: Vital Signs Temperature 97.2 F L 03/31/19 06:00 Pulse Rate 64 03/31/19 06:00 Respiratory Rate 18 03/31/19 06:00 Blood Pressure 101/55 L 03/31/19 06:00 O2 Sat by Pulse Oximetry (%) 96 03/30/19 21:00 Labs: CBC, BMP 03/31/19 05:48 03/31/19 05:48 Microbiology 03/28/19 17:00 Blood - Peripheral Venous Blood Culture - Preliminary NO GROWTH OBTAINED AFTER 48 HOURS, INCUBATION TO CONTINUE FOR 3 DAYS. 03/28/19 17:00 Blood - Peripheral Venous Blood Culture - Preliminary NO GROWTH OBTAINED AFTER 48 HOURS, INCUBATION TO CONTINUE FOR 3 DAYS. Laboratory Tests 03/31/19 03/31/19 05:48 05:48 WBC 8.6 Hgb 10.4 L Plt Count 179 D Sodium 154 H Potassium 3.1 L Creatinine 2.2 H Assessment/Plan IMP: Severe MR, chronic Chronic diastolic and valvular CHF AF s/p PPM UTI, Bacteremia REC: Case d/w ID at length: 2 paths of treatment to discuss w/ family - VITA guided abx therapy vs No VITA and trial 2 weeks abx with understanding that this approach may miss endocarditis. Daughter has already indicated that a 6 week empiric course of Abx would not be feasible for her mother and father and would likely lead to further social stress/cognitive decline. I will d/w daughter and pt's primary Care Director Rn Dr. Cam today.
[2019-03-31] MEDS ORDERED: PT OWN MED DRAWER 7, Y5N ONE ×3 (10:46→17:21)
[2019-03-31] MEDS: MEMANTINE HCL 5 MG TABLET (UD) PO SCH ×2 (10:47→22:56)
[2019-03-31] MEDS: metoPROLOL SUCCINATE 25 MG TAB.SR.24H (FP) PO SCH (10:47)
[2019-03-31] MEDS: DONEPEZIL HCL 10 MG TABLET (FP) PO SCH (10:47)
[2019-03-31] MEDS: PANTOPRAZOLE 40 MG TABLET (FP) PO SCH (10:47)
[2019-03-31] MEDS: APIXABAN 2.5 MG TABLET PO SCH ×2 (10:47→22:56)
[2019-03-31] MEDS: FLUoxetine HCL 20 MG CAPSULE (FP) PO SCH (10:47)
[2019-03-31] MEDS: AMIODARONE HCL 200 MG TABLET (FP) PO SCH (10:47)
[2019-03-31] MEDS ORDERED: POTASSIUM CHLORIDE ORAL LIQUID 20 MEQ/15 ML PO ONE (10:59)
--- NOTE | 2019-03-31 11:29 | CONSULT ---
Admitting History and Physical - Primary Care Physician PCP: Cheyenne Estrella - Admission History of Present Illness: 83yo female with hx of chf and mvpadmitted for dehydration, decreased po intake and generalized weakness, confusion, dehydration. History Source: Medical Record Limitations to Obtaining History: Clinical Condition, Dementia - Past Medical History [employer]: Yes: Dementia, Other (Cognitive decline) Cardiovascular: Yes: AFIB, HTN, Hyperlipdemia, Mitral Insufficiency (MVR w Mod- Severe MR), Other ( Moderate to sevre Tricuspid regurg) Gastrointestinal: Yes: GERD Renal/: Yes: Renal Inusuff, UTI Heme/Onc: No: Anemia, B12 Deficiency, Bleeding Disorder, Cancer, Current Chemotherapy, Current Radiation Therapy, Hemochromatosis, Hypercoaguable State, Myeloproliferative Synd, Sickle Cell Disease, Sickle Cell Trait, Thrombocytopenia, Other Infectious Disease: Yes: Other (UTIS) Psych: Yes: Anxiety - Past Surgical History Past Surgical History: Yes: Permanent Pacemaker ([employer]- model # L331 Atrial lead # 7) - Smoking History Smoking history: Never smoked Have you smoked in the past 12 months: No Aproximately how many cigarettes per day: 0 If you are a former smoker, when did you quit?: stopped at age 50 - Alcohol/Substance Use Hx Alcohol Use: No History of Substance Use: reports: None - Social History ADL: Independent 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 History of Recent Travel: No History - Admission Reason For Visit: ACUTE KIDNEY INJURY - Diagnostics X-ray: Report Reviewed CT Scan: Report Reviewed - General Mental Status: Awake and Alert, Able to Follow Commands, Forgetful, Vague, Intermittently Confused Attention: Intact - Hearing Hearing: Impaired Hearing Aide: No Speech Evaluation - Communication Primary Language: PANAMANIAN Communication: Yes: Within Normal Limits Oral Expression Ability: Yes: No Impairment - Speech Production Able to Make Needs Known: Yes: WNL Intelligibility: Yes: WNL - Speech Characteristics Voice Loudness: Normal Voice Pitch: Yes: Normal Voice Phonatory-based Quality: Yes: Normal Speech Pattern: Normal Speech Clarity: < 100% Nasal Resonance: Normal Articulation: Yes: Precise Rate of Speech: Intact - Language/Auditory Comprehension Follows: Yes: 1 Stage Simple Commands Observation: Able to respond to yes/no queries: Yes, Yes/No Confusion: No, Comprehends Conversational Speech: Yes - Language/Verbal Expression Able to Communicate Wants and Needs: Yes: WNL Functional Communication Status: Yes: WNL - Memory/Perception Short Term Memory: Yes: Severely Impaired (Did not remember me after 10 minutes without distraction.) - Swallow Evaluation/Bedside Assessment Current Nutritional Intake: Regular, Thin Liquids, Other (Taking mainly Ensure Clear) Oral Secretions: Yes: WFL, Dryness Dentition: Yes: Adequate, Dental Appliance Upper (well fitting), Dental Appliance Lower (well fitting) Facial Symmetry at Rest: Symmetrical (repaired soft/hard palate/lip clefts) Facial Symmetry on Retraction: Symmetrical (repaired soft/hard palate/lip clefts ) Against Resistance Opening: Normal Against Resistance Closing: Normal Pucker Lips: Normal Smile: Normal Lingual Movement: Normal, Symmetric Lingual Speed of Movement: Normal Lingual Movement Strgth Against Opposition: Normal Lingual Movement Characteristics: Normal Laryngeal Movement: Reduced Excursion, Labored,delay initiation, Other ( recurrent swallows triggered. r/o stasis/aspiration) Rate of Intake: WFL Labial Seal: WFL Chewing: Impaired (refused solids trials. Wanted to sleep) Timing of Swallow: Delayed Coughing/Throat Clear: Yes (repeat swallows with brief recurrent throat clearing ) Recommendations - Speech Evaluation, Impression/Plan Impression: Recurrent swallows triggered. r/o stasis/aspiration. Poor ST memory. Did not recall meeting me when I returned 10 minutes later. - Dysphagia Impressions/Plan Swallowing Skills: Impaired Dysphagia Impressions: Mild Impairment, Moderate Impairment, Ongoing Evaluation *Silent aspiration: cannot be R/O at bedside Recommendations: MBS w Esophagus (recurrent swallows triggered. r/o stasis/ aspiration) - Recommendations Diet Consistency: Other (chopped) Liquids: Thin Liquids (single sips) Supplement: Magic Cup, Ensure Pudding, Other (ensure clear)
--- NOTE | 2019-03-31 11:38 | PN ---
Progress Note (short form) - Note Progress Note: alert no distress feels better today Vital Signs Period Temp Pulse Resp BP Sys/Rice Pulse Ox Last 24 Hr 97.2 F-97.5 F 64-71 18-20 99-117/52-63 96 cor-rrr 3/6 ry lungs clear abd soft,nt ext no edema argueta out CBC, BMP 03/31/19 05:48 03/31/19 05:48 Microbiology 03/28/19 17:00 Blood - Peripheral Venous Blood Culture - Preliminary NO GROWTH OBTAINED AFTER 48 HOURS, INCUBATION TO CONTINUE FOR 3 DAYS. 03/28/19 17:00 Blood - Peripheral Venous Blood Culture - Preliminary NO GROWTH OBTAINED AFTER 48 HOURS, INCUBATION TO CONTINUE FOR 3 DAYS. 03/27/19 15:55 Blood - Peripheral Venous Blood Culture - Final Enterococcus Faecalis 03/27/19 15:55 Blood - Peripheral Venous Blood Culture - Final Enterococcus Faecalis 03/27/19 16:34 Urine - Urine Clean Catch Urine Culture - Final Contaminated: Please Repeat echo+valvular disease, no obvious vegetations noted a/p enterococcal bacteremia repeat blood culture negative suspect urinary source with pyuria on admission valvular heart disease PPM continue ampicillin/ceftriaxone d/w dr arteaga- options for further evaluation discussed spoke with zoey at length at bedside yesterday- she is not comfortable with presumptive residential iv treatment which she feel will be detrimental to both her parents health Problem List - Problems (1) Positive blood culture Code(s): R78.81 - BACTEREMIA (2) LILLIE (acute kidney injury) Code(s): N17.9 - ACUTE KIDNEY FAILURE, UNSPECIFIED (3) Mitral valve regurgitation Code(s): I34.0 - NONRHEUMATIC MITRAL (VALVE) INSUFFICIENCY (4) Pacemaker Code(s): Z95.0 - PRESENCE OF CARDIAC PACEMAKER
[2019-03-31] MEDS: LACTOBACILLUS ACIDOPHILUS 1 TABLET PO SCH (12:18)
[2019-03-31] MEDS ORDERED: POTASSIUM CHLORIDE TABS 20 MEQ TABLET.ER (FP) PO ONE (12:25)
--- NOTE | 2019-03-31 12:30 | PN ---
Progress Note, Physician History of Present Illness: Pt seen and examined at bedside. She is more awake and appears more comfortable. - Current Medication List Current Medications: Active Medications Amiodarone HCl (Cordarone -) 100 mg PO DAILY [facility] Last Admin: 03/31/19 10:47 Dose: 100 mg Apixaban (Eliquis -) 2.5 mg PO BID [facility] Last Admin: 03/31/19 10:47 Dose: 2.5 mg Atorvastatin Calcium (Lipitor -) 10 mg PO HS [facility] Last Admin: 03/30/19 21:40 Dose: 10 mg Donepezil HCl (Aricept -) 10 mg PO DAILY [facility] Last Admin: 03/31/19 10:47 Dose: 10 mg Fluoxetine HCl (Prozac -) 20 mg PO DAILY [facility] Last Admin: 03/31/19 10:47 Dose: 20 mg Potassium Chloride 20 meq/ (Dextrose) 1,010 mls @ 83 mls/hr IVPB Q12H [facility] Last Admin: 03/31/19 01:25 Dose: Not Given Ceftriaxone Sodium 2 gm/ (Dextrose) 100 mls @ 200 mls/hr IVPB Q12H [facility]; Protocol Last Admin: 03/31/19 05:42 Dose: 200 mls/hr Ampicillin Sodium 2 gm/ Sodium (Chloride) 100 mls @ 200 mls/hr IVPB Q6H-IV [facility] ; Protocol Lactobacillus Acidophilus (Bacid -) 1 tab PO DAILY [facility] Last Admin: 03/31/19 12:18 Dose: 1 tab Memantine (Namenda -) 5 mg PO BID [facility] Last Admin: 03/31/19 10:47 Dose: 5 mg Metoprolol Succinate (Toprol Xl -) 25 mg PO DAILY [facility] Last Admin: 03/31/19 10:47 Dose: 25 mg Mirtazapine (Remeron -) 15 mg PO HS [facility] Last Admin: 03/30/19 21:41 Dose: 15 mg Pantoprazole Sodium (Protonix -) 40 mg PO DAILY [facility] Last Admin: 03/31/19 10:47 Dose: 40 mg Potassium Chloride (K-Dur -) 40 meq PO ONCE ONE Stop: 03/31/19 12:26 - Objective Vital Signs: Vital Signs Temperature 97.2 F L 03/31/19 06:00 Pulse Rate 64 03/31/19 06:00 Respiratory Rate 18 03/31/19 06:00 Blood Pressure 101/55 L 03/31/19 06:00 O2 Sat by Pulse Oximetry (%) 96 03/30/19 21:00 Constitutional: Yes: Calm Eyes: Yes: Conjunctiva Clear HENT: Yes: Atraumatic Cardiovascular: Yes: S1, S2 Respiratory: Yes: CTA Bilaterally Gastrointestinal: Yes: Soft Genitourinary: Yes: Cervantes Present Musculoskeletal: Yes: WNL Edema: No Integumentary: Yes: WNL Neurological: Yes: Confusion Labs: CBC, BMP 03/31/19 05:48 03/31/19 05:48 Problem List - Problems (1) LILLIE (acute kidney injury) Code(s): N17.9 - ACUTE KIDNEY FAILURE, UNSPECIFIED (2) Hypernatremia Code(s): E87.0 - HYPEROSMOLALITY AND HYPERNATREMIA Assessment/Plan Current Medications Generic Name Dose Route Start Last Admin Trade Name Freq PRN Reason Stop Dose Admin Amiodarone HCl 100 mg 03/28/19 10:00 03/31/19 10:47 Cordarone - PO 100 mg DAILY [facility] Administration Apixaban 2.5 mg 03/27/19 22:00 03/31/19 10:47 Eliquis - PO 2.5 mg BID [facility] Administration Atorvastatin Calcium 10 mg 03/27/19 22:00 03/30/19 21:40 Lipitor - PO 10 mg HS [facility] Administration Donepezil HCl 10 mg 03/28/19 10:00 03/31/19 10:47 Aricept - PO 10 mg DAILY [facility] Administration Fluoxetine HCl 20 mg 03/28/19 13:00 03/31/19 10:47 Prozac - PO 20 mg DAILY [facility] Administration Potassium Chloride 20 meq/ 1,010 mls @ 83 mls/hr 03/30/19 12:45 03/31/19 01: 25 Dextrose IVPB Not Given Q12H [facility] Ceftriaxone Sodium 2 gm/ 100 mls @ 200 mls/hr 03/30/19 18:00 03/31/19 05:42 Dextrose IVPB 200 mls/hr Q12H [facility] Administration Protocol Ampicillin Sodium 2 gm/ Sodium 100 mls @ 200 mls/hr 03/31/19 15:00 Chloride IVPB Q6H-IV [facility] Protocol Lactobacillus Acidophilus 1 tab 03/31/19 12:00 03/31/19 12:18 Bacid - PO 1 tab DAILY [facility] Administration Memantine 5 mg 03/27/19 22:00 03/31/19 10:47 Namenda - PO 5 mg BID [facility] Administration Metoprolol Succinate 25 mg 03/28/19 10:00 03/31/19 10:47 Toprol Xl - PO 25 mg DAILY [facility] Administration Mirtazapine 15 mg 03/28/19 22:00 03/30/19 21:41 Remeron - PO 15 mg HS [facility] Administration Pantoprazole Sodium 40 mg 03/28/19 13:00 03/31/19 10:47 Protonix - PO 40 mg DAILY [facility] Administration Potassium Chloride 40 meq 03/31/19 12:25 K-Dur - PO 03/31/19 12:26 ONCE ONE Microbiology 03/28/19 17:00 Blood - Peripheral Venous Blood Culture - Preliminary NO GROWTH OBTAINED AFTER 48 HOURS, INCUBATION TO CONTINUE FOR 3 DAYS. 03/28/19 17:00 Blood - Peripheral Venous Blood Culture - Preliminary NO GROWTH OBTAINED AFTER 48 HOURS, INCUBATION TO CONTINUE FOR 3 DAYS. Impression 1. LILLIE 2. chf 3. mitral regurg 4. dementia 5. a-fib 6. hld 7. solitary right kidney 8. UTI 9. right side hydro 10. bacteremia 11. hypernatremia 12. hypokalemia Plan - cont with fluids - sodium improving - renal function improving - diuretics on hold - monitor volume status - repeat culture negative - monitor output
[2019-03-31] MEDS ORDERED: POTASSIUM CHLORIDE TABS 10 MEQ TABLET.ER (FP) PO ONE (13:00)
--- NOTE | 2019-03-31 20:33 | PN ---
Progress Note, Physician - Current Medication List Current Medications: Active Medications Amiodarone HCl (Cordarone -) 100 mg PO DAILY [facility] Last Admin: 03/31/19 10:47 Dose: 100 mg Apixaban (Eliquis -) 2.5 mg PO BID [facility] Last Admin: 03/31/19 10:47 Dose: 2.5 mg Atorvastatin Calcium (Lipitor -) 10 mg PO HS [facility] Last Admin: 03/30/19 21:40 Dose: 10 mg Donepezil HCl (Aricept -) 10 mg PO DAILY [facility] Last Admin: 03/31/19 10:47 Dose: 10 mg Fluoxetine HCl (Prozac -) 20 mg PO DAILY [facility] Last Admin: 03/31/19 10:47 Dose: 20 mg Potassium Chloride 20 meq/ (Dextrose) 1,010 mls @ 83 mls/hr IVPB Q12H [facility] Last Admin: 03/31/19 14:45 Dose: 83 mls/hr Ceftriaxone Sodium 2 gm/ (Dextrose) 100 mls @ 200 mls/hr IVPB Q12H [facility]; Protocol Last Admin: 03/31/19 18:27 Dose: 200 mls/hr Ampicillin Sodium 2 gm/ Sodium (Chloride) 100 mls @ 200 mls/hr IVPB Q6H-IV [facility] ; Protocol Last Admin: 03/31/19 17:23 Dose: 200 mls/hr Lactobacillus Acidophilus (Bacid -) 1 tab PO DAILY [facility] Last Admin: 03/31/19 12:18 Dose: 1 tab Memantine (Namenda -) 5 mg PO BID [facility] Last Admin: 03/31/19 10:47 Dose: 5 mg Metoprolol Succinate (Toprol Xl -) 25 mg PO DAILY [facility] Last Admin: 03/31/19 10:47 Dose: 25 mg Mirtazapine (Remeron -) 15 mg PO HS [facility] Last Admin: 03/30/19 21:41 Dose: 15 mg Pantoprazole Sodium (Protonix -) 40 mg PO DAILY [facility] Last Admin: 03/31/19 10:47 Dose: 40 mg - Objective Vital Signs: Vital Signs Temperature 98.1 F 03/31/19 18:13 Pulse Rate 67 03/31/19 18:13 Respiratory Rate 18 03/31/19 18:13 Blood Pressure 92/48 L 03/31/19 18:13 O2 Sat by Pulse Oximetry (%) 96 03/30/19 21:00 Constitutional: Yes: No Distress HENT: Yes: Atraumatic Neck: Yes: Supple Cardiovascular: Yes: Regular Rate and Rhythm Respiratory: Yes: CTA Bilaterally Extremities: Yes: WNL Neurological: Yes: Alert, Oriented Labs: CBC, BMP 03/31/19 05:48 03/31/19 05:48 Problem List - Problems (1) LILLIE (acute kidney injury) Code(s): N17.9 - ACUTE KIDNEY FAILURE, UNSPECIFIED (2) Elevated troponin Assessment/Plan: monitor demand ischemia? cardio consult Code(s): R74.8 - ABNORMAL LEVELS OF OTHER SERUM ENZYMES (3) CHF (congestive heart failure) Code(s): I50.9 - HEART FAILURE, UNSPECIFIED (4) Dementia Code(s): F03.90 - UNSPECIFIED DEMENTIA WITHOUT BEHAVIORAL DISTURBANCE (5) GERD (gastroesophageal reflux disease) Code(s): K21.9 - GASTRO-ESOPHAGEAL REFLUX DISEASE WITHOUT ESOPHAGITIS (6) Atrial fibrillation Assessment/Plan: on meds Code(s): I48.91 - UNSPECIFIED ATRIAL FIBRILLATION Qualifiers: Atrial fibrillation type: paroxysmal Qualified Code(s): I48.0 - Paroxysmal atrial fibrillation (7) HTN (hypertension) Assessment/Plan: on meds monitor Code(s): I10 - ESSENTIAL (PRIMARY) HYPERTENSION (8) Positive blood culture Assessment/Plan: on abx id consult Code(s): R78.81 - BACTEREMIA
[2019-03-31] MEDS: MIRTAZAPINE 15 MG TABLET (FP) PO SCH (22:56)
[2019-03-31] MEDS: ATORVASTATIN CA 10 MG TABLET (FP) PO SCH (22:56)
[2019-04-01] MEDS: POTASSIUM CHLORIDE 20 MEQ in DEXTROSE 5%-WATER - 1,000 ML IVPB SCH ×2 (00:14→16:40)
[2019-04-01] MEDS: AMPICILLIN - 2 GM in SODIUM CHLORIDE 100 ML IVPB SCH ×4 (04:00→22:00)
[2019-04-01] MEDS ORDERED: PT OWN MED DRAWER 7, Y5N ONE ×3 (04:05→16:22)
[2019-04-01] MEDS ORDERED: DEXTROSE 5%-WATER 100 ML IVPB ONE ×2 (05:19→18:39)
[2019-04-01] MEDS: CEFTRIAXONE 2 GM in DEXTROSE 5%-WATER 100 ML IVPB SCH ×2 (05:23→19:00)
[2019-04-01 07:55] LABS: BILIRUBIN,TOTAL 0.2 mg/dL (0.2-1); BLOOD UREA NITROGEN 50.3 mg/dL (7-18); CALCIUM 7.3 mg/dL (8.5-10.1); CREATININE 1.8 mg/dL (0.55-1.3); POTASSIUM 3.1 mmol/L (3.5-5.1); TOT PROT 5.4 g/dl (6.4-8.2)
--- NOTE | 2019-04-01 12:41 | PN ---
Progress Note (short form) - Note Progress Note: s: no chest pain, palps, dizziness, dyspnea. feels tired. Current Medications Amiodarone HCl (Cordarone -) 100 mg PO DAILY [facility] Last Admin: 03/31/19 10:47 Dose: 100 mg Apixaban (Eliquis -) 2.5 mg PO BID [facility] Last Admin: 03/31/19 22:56 Dose: 2.5 mg Atorvastatin Calcium (Lipitor -) 10 mg PO HS [facility] Last Admin: 03/31/19 22:56 Dose: 10 mg Donepezil HCl (Aricept -) 10 mg PO DAILY [facility] Last Admin: 03/31/19 10:47 Dose: 10 mg Fluoxetine HCl (Prozac -) 20 mg PO DAILY [facility] Last Admin: 03/31/19 10:47 Dose: 20 mg Potassium Chloride 20 meq/ (Dextrose) 1,010 mls @ 83 mls/hr IVPB Q12H [facility] Last Admin: 04/01/19 00:14 Dose: 83 mls/hr Ceftriaxone Sodium 2 gm/ (Dextrose) 100 mls @ 200 mls/hr IVPB Q12H [facility]; Protocol Last Admin: 04/01/19 05:23 Dose: 200 mls/hr Ampicillin Sodium 2 gm/ Sodium (Chloride) 100 mls @ 200 mls/hr IVPB Q6H-IV [facility] ; Protocol Last Admin: 04/01/19 04:00 Dose: 200 mls/hr Lactobacillus Acidophilus (Bacid -) 1 tab PO DAILY [facility] Last Admin: 03/31/19 12:18 Dose: 1 tab Memantine (Namenda -) 5 mg PO BID [facility] Last Admin: 03/31/19 22:56 Dose: 5 mg Metoprolol Succinate (Toprol Xl -) 25 mg PO DAILY [facility] Last Admin: 03/31/19 10:47 Dose: 25 mg Mirtazapine (Remeron -) 15 mg PO HS [facility] Last Admin: 03/31/19 22:56 Dose: 15 mg Pantoprazole Sodium (Protonix -) 40 mg PO DAILY [facility] Last Admin: 03/31/19 10:47 Dose: 40 mg Vital Signs Period Temp Pulse Resp BP Sys/Rice Pulse Ox Last 24 Hr 97.5 F-98.1 F 65-68 16-18 92-126/48-62 97 NAD nl s1, s2, rrr CTAB soft, nt, nd +bs no edema no jaundice, diaphoresis aox3 not agitated Assessment/Plan CXR: clear lungs/pleura EKG sinus, prolonged QTc 515 ms, stable compared to prior echo 03/2019 mild conc LVH, pseudonormalization, RV nl, PPM in R heart, RV function nl, LA severely dilated, mod MAC, significant prolapse vs partial flail of post mitral leaflet, severe eccentric anteriorly directed MR, mild to mod TR, RVSP elevated 40-50 mmHg, mild AR, no obvoius intracardiac vegetations seen tele: sinus sepsis, bacteremia, UTI - manage per ID - no obvious vegetation on echo. repeat bld cx ngtd - per ID d/w Dr Lamas: VITA guided abx therapy vs No VITA and trial 2 weeks abx with understanding that this approach may miss endocarditis. Daughter has indicated that a 6 week empiric course of Abx would not be feasible for her mother and father and would likely lead to further social stress/cognitive decline. - per discussion with Dr. 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, outpatient administrative sales assistant - will consider transfer for VITA at [place] given concomitant MR with consideration for intervention vs outpatient VITA at [place] after 2 weeks of abx - for now, continue current therapy dehydration, hypernatremia, LILLIE - weakness, dehydration improved with IVF - cautious use of IVF given severe MR, recent admissions for CHF - renal consulted elevated trop - indeterminate range, flat trend, no ischemic changes - less likely ACS - likely demand in setting of sepsis chronic diastolic chf, severe MR: - currently dry - holding lasix, IVF as above - monitor volume status PAF: -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
[2019-04-01] MEDS: APIXABAN 2.5 MG TABLET PO SCH ×2 (12:55→22:09)
[2019-04-01] MEDS: MEMANTINE HCL 5 MG TABLET (UD) PO SCH ×2 (12:55→22:09)
[2019-04-01] MEDS: metoPROLOL SUCCINATE 25 MG TAB.SR.24H (FP) PO SCH (12:55)
[2019-04-01] MEDS: LACTOBACILLUS ACIDOPHILUS 1 TABLET PO SCH (12:55)
[2019-04-01] MEDS: FLUoxetine HCL 20 MG CAPSULE (FP) PO SCH (12:55)
[2019-04-01] MEDS: PANTOPRAZOLE 40 MG TABLET (FP) PO SCH (12:55)
[2019-04-01] MEDS: AMIODARONE HCL 200 MG TABLET (FP) PO SCH (12:55)
[2019-04-01] MEDS: DONEPEZIL HCL 10 MG TABLET (FP) PO SCH (12:55)
--- NOTE | 2019-04-01 14:57 | PN ---
Progress Note (short form) - Note Progress Note: covering dr lee problems 1. LILLIE 2. chf 3. mitral regurg 4. dementia 5. a-fib 6. hld 7. solitary right kidney 8. UTI 9. right side hydro 10. bacteremia 11. hypernatremia 12. hypokalemia Current Medications Amiodarone HCl (Cordarone -) 100 mg PO DAILY [facility] Last Admin: 04/01/19 12:55 Dose: 100 mg Apixaban (Eliquis -) 2.5 mg PO BID [facility] Last Admin: 04/01/19 12:55 Dose: 2.5 mg Atorvastatin Calcium (Lipitor -) 10 mg PO HS [facility] Last Admin: 03/31/19 22:56 Dose: 10 mg Donepezil HCl (Aricept -) 10 mg PO DAILY [facility] Last Admin: 04/01/19 12:55 Dose: 10 mg Fluoxetine HCl (Prozac -) 20 mg PO DAILY [facility] Last Admin: 04/01/19 12:55 Dose: 20 mg Potassium Chloride 20 meq/ (Dextrose) 1,010 mls @ 83 mls/hr IVPB Q12H [facility] Last Admin: 04/01/19 00:14 Dose: 83 mls/hr Ceftriaxone Sodium 2 gm/ (Dextrose) 100 mls @ 200 mls/hr IVPB Q12H [facility]; Protocol Last Admin: 04/01/19 05:23 Dose: 200 mls/hr Ampicillin Sodium 2 gm/ Sodium (Chloride) 100 mls @ 200 mls/hr IVPB Q6H-IV [facility] ; Protocol Last Admin: 04/01/19 12:54 Dose: 200 mls/hr Lactobacillus Acidophilus (Bacid -) 1 tab PO DAILY [facility] Last Admin: 04/01/19 12:55 Dose: 1 tab Memantine (Namenda -) 5 mg PO BID [facility] Last Admin: 04/01/19 12:55 Dose: 5 mg Metoprolol Succinate (Toprol Xl -) 25 mg PO DAILY [facility] Last Admin: 04/01/19 12:55 Dose: 25 mg Mirtazapine (Remeron -) 15 mg PO HS [facility] Last Admin: 03/31/19 22:56 Dose: 15 mg Pantoprazole Sodium (Protonix -) 40 mg PO DAILY [facility] Last Admin: 04/01/19 12:55 Dose: 40 mg Last Vital Signs Temp Pulse Resp BP Pulse Ox 97.5 F L 68 18 126/62 97 04/01/19 06:00 04/01/19 10:00 04/01/19 10:00 04/01/19 10:00 03/31/19 21:00 CBC, BMP 03/31/19 05:48 04/01/19 05:46 IMP Hypernatremia Hypokalemia LILLIE improving s/p sepsis s/p bacteremia Plan - cont with fluids - sodium improving - renal function improving - diuretics on hold - monitor volume status - repeat culture negative - monitor output
--- NOTE | 2019-04-01 19:33 | PN ---
Progress Note, Physician History of Present Illness: stable - Current Medication List Current Medications: Active Medications Amiodarone HCl (Cordarone -) 100 mg PO DAILY [facility] Last Admin: 04/01/19 12:55 Dose: 100 mg Apixaban (Eliquis -) 2.5 mg PO BID [facility] Last Admin: 04/01/19 12:55 Dose: 2.5 mg Atorvastatin Calcium (Lipitor -) 10 mg PO HS [facility] Last Admin: 03/31/19 22:56 Dose: 10 mg Donepezil HCl (Aricept -) 10 mg PO DAILY [facility] Last Admin: 04/01/19 12:55 Dose: 10 mg Fluoxetine HCl (Prozac -) 20 mg PO DAILY [facility] Last Admin: 04/01/19 12:55 Dose: 20 mg Potassium Chloride 20 meq/ (Dextrose) 1,010 mls @ 83 mls/hr IVPB Q12H [facility] Last Admin: 04/01/19 16:40 Dose: Not Given Ceftriaxone Sodium 2 gm/ (Dextrose) 100 mls @ 200 mls/hr IVPB Q12H [facility]; Protocol Last Admin: 04/01/19 05:23 Dose: 200 mls/hr Ampicillin Sodium 2 gm/ Sodium (Chloride) 100 mls @ 200 mls/hr IVPB Q6H-IV [facility] ; Protocol Last Admin: 04/01/19 16:39 Dose: 200 mls/hr Lactobacillus Acidophilus (Bacid -) 1 tab PO DAILY [facility] Last Admin: 04/01/19 12:55 Dose: 1 tab Memantine (Namenda -) 5 mg PO BID [facility] Last Admin: 04/01/19 12:55 Dose: 5 mg Metoprolol Succinate (Toprol Xl -) 25 mg PO DAILY [facility] Last Admin: 04/01/19 12:55 Dose: 25 mg Mirtazapine (Remeron -) 15 mg PO HS [facility] Last Admin: 03/31/19 22:56 Dose: 15 mg Pantoprazole Sodium (Protonix -) 40 mg PO DAILY [facility] Last Admin: 04/01/19 12:55 Dose: 40 mg - Objective Vital Signs: Vital Signs Temperature 97.6 F 04/01/19 17:00 Pulse Rate 70 04/01/19 17:00 Respiratory Rate 20 04/01/19 17:00 Blood Pressure 115/56 L 04/01/19 17:00 O2 Sat by Pulse Oximetry (%) 97 03/31/19 21:00 Constitutional: Yes: No Distress HENT: Yes: Atraumatic Neck: Yes: Supple Cardiovascular: Yes: Regular Rate and Rhythm Respiratory: Yes: CTA Bilaterally Gastrointestinal: Yes: Normal Bowel Sounds Extremities: Yes: WNL Edema: No Peripheral Pulses WNL: Yes Neurological: Yes: Alert Labs: CBC, BMP 03/31/19 05:48 04/01/19 05:46 Problem List - Problems (1) LILLIE (acute kidney injury) Assessment/Plan: cr improving Code(s): N17.9 - ACUTE KIDNEY FAILURE, UNSPECIFIED (2) Elevated troponin Assessment/Plan: monitor demand ischemia? cardio consult Code(s): R74.8 - ABNORMAL LEVELS OF OTHER SERUM ENZYMES (3) CHF (congestive heart failure) Code(s): I50.9 - HEART FAILURE, UNSPECIFIED (4) Dementia Code(s): F03.90 - UNSPECIFIED DEMENTIA WITHOUT BEHAVIORAL DISTURBANCE (5) GERD (gastroesophageal reflux disease) Code(s): K21.9 - GASTRO-ESOPHAGEAL REFLUX DISEASE WITHOUT ESOPHAGITIS (6) Atrial fibrillation Assessment/Plan: on meds Code(s): I48.91 - UNSPECIFIED ATRIAL FIBRILLATION Qualifiers: Atrial fibrillation type: paroxysmal Qualified Code(s): I48.0 - Paroxysmal atrial fibrillation (7) HTN (hypertension) Assessment/Plan: on meds monitor Code(s): I10 - ESSENTIAL (PRIMARY) HYPERTENSION (8) Positive blood culture Assessment/Plan: on abx id consult Code(s): R78.81 - BACTEREMIA
[2019-04-01] MEDS: MIRTAZAPINE 15 MG TABLET (FP) PO SCH (22:09)
[2019-04-01] MEDS: ATORVASTATIN CA 10 MG TABLET (FP) PO SCH (22:09)
[2019-04-02] MEDS ORDERED: PT OWN MED DRAWER 7, Y5N ONE ×3 (00:53→21:20)
[2019-04-02] MEDS: POTASSIUM CHLORIDE 20 MEQ in DEXTROSE 5%-WATER - 1,000 ML IVPB SCH ×2 (01:07→13:54)
[2019-04-02] MEDS: AMPICILLIN - 2 GM in SODIUM CHLORIDE 100 ML IVPB SCH ×4 (02:00→21:38)
[2019-04-02] MEDS ORDERED: DEXTROSE 5%-WATER 100 ML IVPB ONE ×2 (05:33→16:42)
[2019-04-02] MEDS: CEFTRIAXONE 2 GM in DEXTROSE 5%-WATER 100 ML IVPB SCH ×2 (05:36→17:05)
[2019-04-02] MEDS: AMIODARONE HCL 200 MG TABLET (FP) PO SCH (09:43)
[2019-04-02] MEDS: LACTOBACILLUS ACIDOPHILUS 1 TABLET PO SCH (09:50)
[2019-04-02] MEDS: PANTOPRAZOLE 40 MG TABLET (FP) PO SCH (09:50)
[2019-04-02] MEDS: metoPROLOL SUCCINATE 25 MG TAB.SR.24H (FP) PO SCH (09:50)
[2019-04-02] MEDS: FLUoxetine HCL 20 MG CAPSULE (FP) PO SCH (09:50)
[2019-04-02] MEDS: MEMANTINE HCL 5 MG TABLET (UD) PO SCH ×2 (09:50→21:38)
[2019-04-02] MEDS: DONEPEZIL HCL 10 MG TABLET (FP) PO SCH (09:50)
[2019-04-02] MEDS: APIXABAN 2.5 MG TABLET PO SCH ×2 (09:50→21:39)
--- NOTE | 2019-04-02 12:03 | PN ---
Progress Note (short form) - Note Progress Note: s: no chest pain, palps, dizziness, dyspnea. Current Medications Amiodarone HCl (Cordarone -) 100 mg PO DAILY [facility] Last Admin: 04/02/19 09:43 Dose: 100 mg Apixaban (Eliquis -) 2.5 mg PO BID [facility] Last Admin: 04/02/19 09:50 Dose: 2.5 mg Atorvastatin Calcium (Lipitor -) 10 mg PO HS [facility] Last Admin: 04/01/19 22:09 Dose: 10 mg Donepezil HCl (Aricept -) 10 mg PO DAILY [facility] Last Admin: 04/02/19 09:50 Dose: 10 mg Fluoxetine HCl (Prozac -) 20 mg PO DAILY [facility] Last Admin: 04/02/19 09:50 Dose: 20 mg Potassium Chloride 20 meq/ (Dextrose) 1,010 mls @ 83 mls/hr IVPB Q12H [facility] Last Admin: 04/02/19 01:07 Dose: 83 mls/hr Ceftriaxone Sodium 2 gm/ (Dextrose) 100 mls @ 200 mls/hr IVPB Q12H [facility]; Protocol Last Admin: 04/02/19 05:36 Dose: 200 mls/hr Ampicillin Sodium 2 gm/ Sodium (Chloride) 100 mls @ 200 mls/hr IVPB Q6H-IV [facility] ; Protocol Last Admin: 04/02/19 10:23 Dose: 200 mls/hr Lactobacillus Acidophilus (Bacid -) 1 tab PO DAILY [facility] Last Admin: 04/02/19 09:50 Dose: 1 tab Memantine (Namenda -) 5 mg PO BID [facility] Last Admin: 04/02/19 09:50 Dose: 5 mg Metoprolol Succinate (Toprol Xl -) 25 mg PO DAILY [facility] Last Admin: 04/02/19 09:50 Dose: 25 mg Mirtazapine (Remeron -) 15 mg PO HS [facility] Last Admin: 04/01/19 22:09 Dose: 15 mg Pantoprazole Sodium (Protonix -) 40 mg PO DAILY [facility] Last Admin: 04/02/19 09:50 Dose: 40 mg Vital Signs Period Temp Pulse Resp BP Sys/Rice Pulse Ox Last 24 Hr 97.6 F-98.0 F 67-71 20-20 103-119/54-63 94-100 NAD nl s1, s2, rrr CTAB soft, nt, nd +bs no edema no jaundice, diaphoresis aox3 not agitated Assessment/Plan CXR: clear lungs/pleura EKG sinus, prolonged QTc 515 ms, stable compared to prior echo 03/2019 mild conc LVH, pseudonormalization, RV nl, PPM in R heart, RV function nl, LA severely dilated, mod MAC, significant prolapse vs partial flail of post mitral leaflet, severe eccentric anteriorly directed MR, mild to mod TR, RVSP elevated 40-50 mmHg, mild AR, no obvoius intracardiac vegetations seen tele: sinus sepsis, bacteremia, UTI - manage per ID - no obvious vegetation on echo. repeat bld cx ngtd - per ID d/w Dr Lamas: VITA guided abx therapy vs No VITA and trial 2 weeks abx with understanding that this approach may miss endocarditis. Daughter has indicated that a 6 week empiric course of Abx would not be feasible for her mother and father and would likely lead to further social stress/cognitive decline. - per discussion with Dr. 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 - will consider transfer for VITA at [place] given concomitant MR with consideration for intervention vs outpatient VITA at [place] after 2 weeks of abx - for now, continue current therapy dehydration, hypernatremia, LILLIE - weakness, dehydration improved with IVF - cautious use of IVF given severe MR, recent admissions for CHF - renal consulted elevated trop - indeterminate range, flat trend, no ischemic changes - less likely ACS - likely demand in setting of sepsis chronic diastolic chf, severe MR: - currently dry - holding lasix, IVF as above - monitor volume status - repeat labs ordered PAF: -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
--- NOTE | 2019-04-02 13:26 | PN ---
Progress Note, Physician - Current Medication List Current Medications: Active Medications Amiodarone HCl (Cordarone -) 100 mg PO DAILY [facility] Last Admin: 04/02/19 09:43 Dose: 100 mg Apixaban (Eliquis -) 2.5 mg PO BID [facility] Last Admin: 04/02/19 09:50 Dose: 2.5 mg Atorvastatin Calcium (Lipitor -) 10 mg PO HS [facility] Last Admin: 04/01/19 22:09 Dose: 10 mg Donepezil HCl (Aricept -) 10 mg PO DAILY [facility] Last Admin: 04/02/19 09:50 Dose: 10 mg Fluoxetine HCl (Prozac -) 20 mg PO DAILY [facility] Last Admin: 04/02/19 09:50 Dose: 20 mg Potassium Chloride 20 meq/ (Dextrose) 1,010 mls @ 83 mls/hr IVPB Q12H [facility] Last Admin: 04/02/19 01:07 Dose: 83 mls/hr Ceftriaxone Sodium 2 gm/ (Dextrose) 100 mls @ 200 mls/hr IVPB Q12H [facility]; Protocol Last Admin: 04/02/19 05:36 Dose: 200 mls/hr Ampicillin Sodium 2 gm/ Sodium (Chloride) 100 mls @ 200 mls/hr IVPB Q6H-IV [facility] ; Protocol Last Admin: 04/02/19 10:23 Dose: 200 mls/hr Lactobacillus Acidophilus (Bacid -) 1 tab PO DAILY [facility] Last Admin: 04/02/19 09:50 Dose: 1 tab Memantine (Namenda -) 5 mg PO BID [facility] Last Admin: 04/02/19 09:50 Dose: 5 mg Metoprolol Succinate (Toprol Xl -) 25 mg PO DAILY [facility] Last Admin: 04/02/19 09:50 Dose: 25 mg Mirtazapine (Remeron -) 15 mg PO HS [facility] Last Admin: 04/01/19 22:09 Dose: 15 mg Pantoprazole Sodium (Protonix -) 40 mg PO DAILY [facility] Last Admin: 04/02/19 09:50 Dose: 40 mg - Objective Vital Signs: Vital Signs Temperature 97.6 F 04/02/19 08:42 Pulse Rate 70 04/02/19 08:42 Respiratory Rate 20 04/02/19 08:42 Blood Pressure 119/60 04/02/19 08:42 O2 Sat by Pulse Oximetry (%) 94 L 04/02/19 08:40 Constitutional: Yes: No Distress HENT: Yes: Atraumatic Cardiovascular: Yes: Regular Rate and Rhythm Respiratory: Yes: CTA Bilaterally Gastrointestinal: Yes: Normal Bowel Sounds Extremities: Yes: WNL Edema: No Peripheral Pulses WNL: Yes Neurological: Yes: Alert, Oriented Labs: CBC, BMP 03/31/19 05:48 04/01/19 05:46 Problem List - Problems (1) LILLIE (acute kidney injury) Assessment/Plan: cr improving Code(s): N17.9 - ACUTE KIDNEY FAILURE, UNSPECIFIED (2) Elevated troponin Assessment/Plan: monitor demand ischemia? cardio consult Code(s): R74.8 - ABNORMAL LEVELS OF OTHER SERUM ENZYMES (3) CHF (congestive heart failure) Code(s): I50.9 - HEART FAILURE, UNSPECIFIED (4) Dementia Code(s): F03.90 - UNSPECIFIED DEMENTIA WITHOUT BEHAVIORAL DISTURBANCE (5) GERD (gastroesophageal reflux disease) Code(s): K21.9 - GASTRO-ESOPHAGEAL REFLUX DISEASE WITHOUT ESOPHAGITIS (6) Atrial fibrillation Assessment/Plan: on meds Code(s): I48.91 - UNSPECIFIED ATRIAL FIBRILLATION Qualifiers: Atrial fibrillation type: paroxysmal Qualified Code(s): I48.0 - Paroxysmal atrial fibrillation (7) HTN (hypertension) Assessment/Plan: on meds monitor Code(s): I10 - ESSENTIAL (PRIMARY) HYPERTENSION (8) Positive blood culture Assessment/Plan: on abx id consult Code(s): R78.81 - BACTEREMIA
[2019-04-02] MEDS ORDERED: KCL 10 MEQ IVPB 10 MEQ/100 ML INFUS.BAG IVPB SCH (13:30)
[2019-04-02] MEDS: POTASSIUM CHLORIDE ORAL LIQUID 20 MEQ/15 ML PO SCH ×2 (13:56→21:38)
[2019-04-02 16:41] LABS: ALBUMIN 1.8 g/dl (3.4-5.0); BILIRUBIN,TOTAL 0.2 mg/dL (0.2-1); BLOOD UREA NITROGEN 28.3 mg/dL (7-18); CALCIUM 7.4 mg/dL (8.5-10.1); CREATININE 1.6 mg/dL (0.55-1.3); POTASSIUM 3.6 mmol/L (3.5-5.1); TOT PROT 5.1 g/dl (6.4-8.2)
--- NOTE | 2019-04-02 21:03 | PN ---
Progress Note (short form) - Note Progress Note: covering dr lee problems 1. LILLIE 2. chf 3. mitral regurg 4. dementia 5. a-fib 6. hld 7. solitary right kidney 8. UTI 9. right side hydro 10. bacteremia 11. hypernatremia 12. hypokalemia Current Medications Amiodarone HCl (Cordarone -) 100 mg PO DAILY [facility] Last Admin: 04/02/19 09:43 Dose: 100 mg Apixaban (Eliquis -) 2.5 mg PO BID [facility] Last Admin: 04/02/19 09:50 Dose: 2.5 mg Atorvastatin Calcium (Lipitor -) 10 mg PO HS [facility] Last Admin: 04/01/19 22:09 Dose: 10 mg Donepezil HCl (Aricept -) 10 mg PO DAILY [facility] Last Admin: 04/02/19 09:50 Dose: 10 mg Fluoxetine HCl (Prozac -) 20 mg PO DAILY [facility] Last Admin: 04/02/19 09:50 Dose: 20 mg Ceftriaxone Sodium 2 gm/ (Dextrose) 100 mls @ 200 mls/hr IVPB Q12H [facility]; Protocol Last Admin: 04/02/19 17:05 Dose: 200 mls/hr Ampicillin Sodium 2 gm/ Sodium (Chloride) 100 mls @ 200 mls/hr IVPB Q6H-IV [facility] ; Protocol Last Admin: 04/02/19 13:59 Dose: 200 mls/hr Lactobacillus Acidophilus (Bacid -) 1 tab PO DAILY [facility] Last Admin: 04/02/19 09:50 Dose: 1 tab Memantine (Namenda -) 5 mg PO BID [facility] Last Admin: 04/02/19 09:50 Dose: 5 mg Metoprolol Succinate (Toprol Xl -) 25 mg PO DAILY [facility] Last Admin: 04/02/19 09:50 Dose: 25 mg Mirtazapine (Remeron -) 15 mg PO HS [facility] Last Admin: 04/01/19 22:09 Dose: 15 mg Pantoprazole Sodium (Protonix -) 40 mg PO DAILY [facility] Last Admin: 04/02/19 09:50 Dose: 40 mg Potassium Chloride (Potassium Chloride Oral Liquid) 40 meq PO BID [facility] Last Admin: 04/02/19 13:56 Dose: 40 meq Last Vital Signs Temp Pulse Resp BP Pulse Ox 97.6 F 72 20 101/57 L 94 L 04/02/19 08:42 04/02/19 18:00 04/02/19 18:00 04/02/19 18:00 04/02/19 08:40 lungs clear heart reg abd soft CBC, BMP 03/31/19 05:48 04/02/19 14:55 CBC, BMP 03/31/19 05:48 04/01/19 05:46 IMP Hypernatremia- resolved Hypokalemia LILLIE improving further s/p sepsis s/p bacteremia Plan - cont with fluids - sodium improving - renal function improving - diuretics on hold - monitor volume status - repeat culture negative - monitor output
[2019-04-02] MEDS: MIRTAZAPINE 15 MG TABLET (FP) PO SCH (21:38)
[2019-04-02] MEDS: ATORVASTATIN CA 10 MG TABLET (FP) PO SCH (21:39)
[2019-04-03] MEDS ORDERED: PT OWN MED DRAWER 7, Y5N ONE ×4 (01:43→21:20)
[2019-04-03] MEDS: AMPICILLIN - 2 GM in SODIUM CHLORIDE 100 ML IVPB SCH ×4 (02:00→21:39)
[2019-04-03] MEDS ORDERED: DEXTROSE 5%-WATER 100 ML IVPB ONE ×2 (05:15→17:06)
[2019-04-03] MEDS: CEFTRIAXONE 2 GM in DEXTROSE 5%-WATER 100 ML IVPB SCH ×2 (05:28→17:08)
[2019-04-03 07:17] LABS: HEMATOCRIT 29.8 % (32.4-45.2); HEMOGLOBIN 9.6 GM/dL (10.7-15.3); MCH 29.9 pg (25.7-33.7); MCHC 32.3 g/dl (32.0-36.0); MEAN CELL VOLUME 92.6 fl (80-96); MEAN PLT VOLUME 10.7 fl (7.5-11.1); PLATELET COUNT 137 K/MM3 (134-434); RBC 3.22 M/mm3 (3.60-5.2); RDW 17.7 % (11.6-15.6); WHITE BLOOD COUNT 6.8 K/mm3 (4.0-10.0)
[2019-04-03 07:48] LABS: ALBUMIN 1.7 g/dl (3.4-5.0); BILIRUBIN,TOTAL 0.2 mg/dL (0.2-1); CALCIUM 7.4 mg/dL (8.5-10.1); CREATININE 1.6 mg/dL (0.55-1.3); POTASSIUM 3.4 mmol/L (3.5-5.1); TOT PROT 4.7 g/dl (6.4-8.2)
[2019-04-03] MEDS: POTASSIUM CHLORIDE ORAL LIQUID 20 MEQ/15 ML PO SCH ×2 (09:11→22:33)
[2019-04-03] MEDS: LACTOBACILLUS ACIDOPHILUS 1 TABLET PO SCH (09:12)
[2019-04-03] MEDS: PANTOPRAZOLE 40 MG TABLET (FP) PO SCH (09:12)
[2019-04-03] MEDS: APIXABAN 2.5 MG TABLET PO SCH ×2 (09:12→21:40)
[2019-04-03] MEDS: FLUoxetine HCL 20 MG CAPSULE (FP) PO SCH (09:12)
[2019-04-03] MEDS: AMIODARONE HCL 200 MG TABLET (FP) PO SCH (09:12)
[2019-04-03] MEDS: metoPROLOL SUCCINATE 25 MG TAB.SR.24H (FP) PO SCH (09:12)
[2019-04-03] MEDS: DONEPEZIL HCL 10 MG TABLET (FP) PO SCH (09:12)
[2019-04-03] MEDS: MEMANTINE HCL 5 MG TABLET (UD) PO SCH ×2 (09:12→21:39)
--- NOTE | 2019-04-03 09:44 | PN ---
Progress Note, Physician Chief Complaint: weakness History of Present Illness: very weak--not improved no sob, orthopnea. no cp, palp, syncope no cigs - Current Medication List Current Medications: Active Medications Amiodarone HCl (Cordarone -) 100 mg PO DAILY [facility] Last Admin: 04/03/19 09:12 Dose: 100 mg Apixaban (Eliquis -) 2.5 mg PO BID [facility] Last Admin: 04/03/19 09:12 Dose: 2.5 mg Atorvastatin Calcium (Lipitor -) 10 mg PO HS [facility] Last Admin: 04/02/19 21:39 Dose: 10 mg Donepezil HCl (Aricept -) 10 mg PO DAILY [facility] Last Admin: 04/03/19 09:12 Dose: 10 mg Fluoxetine HCl (Prozac -) 20 mg PO DAILY [facility] Last Admin: 04/03/19 09:12 Dose: 20 mg Ceftriaxone Sodium 2 gm/ (Dextrose) 100 mls @ 200 mls/hr IVPB Q12H [facility]; Protocol Last Admin: 04/03/19 05:28 Dose: 200 mls/hr Ampicillin Sodium 2 gm/ Sodium (Chloride) 100 mls @ 200 mls/hr IVPB Q6H-IV [facility] ; Protocol Last Admin: 04/03/19 09:11 Dose: 200 mls/hr Lactobacillus Acidophilus (Bacid -) 1 tab PO DAILY [facility] Last Admin: 04/03/19 09:12 Dose: 1 tab Memantine (Namenda -) 5 mg PO BID [facility] Last Admin: 04/03/19 09:12 Dose: 5 mg Metoprolol Succinate (Toprol Xl -) 25 mg PO DAILY [facility] Last Admin: 04/03/19 09:12 Dose: 25 mg Mirtazapine (Remeron -) 15 mg PO HS [facility] Last Admin: 04/02/19 21:38 Dose: 15 mg Pantoprazole Sodium (Protonix -) 40 mg PO DAILY [facility] Last Admin: 04/03/19 09:12 Dose: 40 mg Potassium Chloride (Potassium Chloride Oral Liquid) 40 meq PO BID [facility] Last Admin: 04/03/19 09:11 Dose: 40 meq - Objective Vital Signs: Vital Signs Temperature 98.0 F 04/03/19 09:04 Pulse Rate 74 04/03/19 09:04 Respiratory Rate 18 04/03/19 09:04 Blood Pressure 110/58 L 04/03/19 09:04 O2 Sat by Pulse Oximetry (%) 96 04/03/19 09:00 Constitutional: Yes: No Distress, Calm Eyes: No: Sclera Icterus HENT: No: Nasal Congestion Cardiovascular: Yes: Regular Rate and Rhythm, Murmur (MR murmur apex--stable), S1, S2, Other (PMI non diplaced). No: JVD, Gallop Respiratory: Yes: CTA Bilaterally. No: Accessory Muscle Use, Rales, Wheezes Gastrointestinal: Yes: Normal Bowel Sounds, Soft. No: Tenderness Musculoskeletal: Yes: Other (No kyphosis) Extremities: No: Cold Edema: No Integumentary: No: Jaundice Neurological: Yes: Alert, Oriented (x3) Psychiatric: No: Agitated Labs: CBC, BMP 04/03/19 06:33 04/03/19 06:33 Assessment/Plan CXR: clear lungs/pleura EKG sinus, prolonged QTc 515 ms, stable compared to prior echo 03/2019 mild conc LVH, pseudonormalization, RV nl, PPM in R heart, RV function nl, LA severely dilated, mod MAC, significant prolapse vs partial flail of post mitral leaflet, severe eccentric anteriorly directed MR, mild to mod TR, RVSP elevated 40-50 mmHg, mild AR, no obvoius intracardiac vegetations seen tele: sinus sepsis, E. faecalis bacteremia, UTI - ID input appreciated, likely urinary source - no obvious vegetation on echo. repeat bld cx ngtd. no signs of cardiogenic shock, CVA, acute HF - case has been disc'd by our team with dr bland who feels that conservative mgmt with 6 wks of abx is preferable given she is hi risk for complications of VITA (including if done at [facility] [place]) and unrevealing VITA will not definitively exclude risk of SBE given in light of indwelling PM leads - dr bland will discuss with dtr and rec 6 wks abx course - for now, continue current therapy dehydration, hypernatremia, LILLIE: - weakness, dehydration improved with IVF - cautious use of IVF given severe MR, recent admissions for CHF - renal fxn improving slowly - f/u renal team rec.s elevated trop - indeterminate range, flat trend, no ischemic changes - less likely ACS - likely demand in setting of sepsis chronic diastolic chf, severe MR: - initially felt to be dry. 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 sec to sepsis -monitor trends and stools -cont AC for now VTach: -NSVT on tele during prior admissions -K/Mag per usual aggressive targets (08/09) -low dose BB as soft bp's allow hld: -cont home statin Progressive Cognitive decline: -Followed by Neuro as outpt
--- NOTE | 2019-04-03 12:06 | PN ---
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 2 swallows generated per sip with delayed brief cough with liquids, stronger cough with 1/4 tsp applesauce. Pt refused further trials. Bedside evaluation not conclusive. Poor po sec to impaired cognition vs sepsis, E. faecalis bacteremia, UTI vs dysphagia-r/o stasis/aspiration Accepted Ensure, OJ and 2 tsp yogurt for breakfast=25%, per nursing Encourage Ensure. MBS for further swallowing assessment, as indicated.
--- NOTE | 2019-04-03 12:50 | PN ---
Progress Note, Physician History of Present Illness: Pt seen and examined at bedside. She denies shortness of breath. She has poor PO intake. - Current Medication List Current Medications: Active Medications Amiodarone HCl (Cordarone -) 100 mg PO DAILY [facility] Last Admin: 04/03/19 09:12 Dose: 100 mg Apixaban (Eliquis -) 2.5 mg PO BID [facility] Last Admin: 04/03/19 09:12 Dose: 2.5 mg Atorvastatin Calcium (Lipitor -) 10 mg PO HS [facility] Last Admin: 04/02/19 21:39 Dose: 10 mg Donepezil HCl (Aricept -) 10 mg PO DAILY [facility] Last Admin: 04/03/19 09:12 Dose: 10 mg Fluoxetine HCl (Prozac -) 20 mg PO DAILY [facility] Last Admin: 04/03/19 09:12 Dose: 20 mg Ceftriaxone Sodium 2 gm/ (Dextrose) 100 mls @ 200 mls/hr IVPB Q12H [facility]; Protocol Last Admin: 04/03/19 05:28 Dose: 200 mls/hr Ampicillin Sodium 2 gm/ Sodium (Chloride) 100 mls @ 200 mls/hr IVPB Q6H-IV [facility] ; Protocol Last Admin: 04/03/19 09:11 Dose: 200 mls/hr Lactobacillus Acidophilus (Bacid -) 1 tab PO DAILY [facility] Last Admin: 04/03/19 09:12 Dose: 1 tab Memantine (Namenda -) 5 mg PO BID [facility] Last Admin: 04/03/19 09:12 Dose: 5 mg Metoprolol Succinate (Toprol Xl -) 25 mg PO DAILY [facility] Last Admin: 04/03/19 09:12 Dose: 25 mg Mirtazapine (Remeron -) 15 mg PO HS [facility] Last Admin: 04/02/19 21:38 Dose: 15 mg Pantoprazole Sodium (Protonix -) 40 mg PO DAILY [facility] Last Admin: 04/03/19 09:12 Dose: 40 mg Potassium Chloride (Potassium Chloride Oral Liquid) 40 meq PO BID [facility] Last Admin: 04/03/19 09:11 Dose: 40 meq - Objective Vital Signs: Vital Signs Temperature 98.0 F 04/03/19 09:04 Pulse Rate 74 04/03/19 09:04 Respiratory Rate 18 04/03/19 09:04 Blood Pressure 110/58 L 04/03/19 09:04 O2 Sat by Pulse Oximetry (%) 96 04/03/19 09:00 Constitutional: Yes: Calm Eyes: Yes: Conjunctiva Clear HENT: Yes: Atraumatic Neck: Yes: Supple Cardiovascular: Yes: Murmur, S1, S2 Respiratory: Yes: CTA Bilaterally Gastrointestinal: Yes: Soft Genitourinary: Yes: WNL Musculoskeletal: Yes: WNL Edema: No Integumentary: Yes: WNL Neurological: Yes: Confusion Labs: CBC, BMP 04/03/19 06:33 04/03/19 06:33 Problem List - Problems (1) LILLIE (acute kidney injury) Code(s): N17.9 - ACUTE KIDNEY FAILURE, UNSPECIFIED (2) Hypernatremia Code(s): E87.0 - HYPEROSMOLALITY AND HYPERNATREMIA Assessment/Plan Current Medications Generic Name Dose Route Start Last Admin Trade Name Freq PRN Reason Stop Dose Admin Amiodarone HCl 100 mg 03/28/19 10:00 04/03/19 09:12 Cordarone - PO 100 mg DAILY [facility] Administration Apixaban 2.5 mg 03/27/19 22:00 04/03/19 09:12 Eliquis - PO 2.5 mg BID [facility] Administration Atorvastatin Calcium 10 mg 03/27/19 22:00 04/02/19 21:39 Lipitor - PO 10 mg HS [facility] Administration Donepezil HCl 10 mg 03/28/19 10:00 04/03/19 09:12 Aricept - PO 10 mg DAILY [facility] Administration Fluoxetine HCl 20 mg 03/28/19 13:00 04/03/19 09:12 Prozac - PO 20 mg DAILY [facility] Administration Ceftriaxone Sodium 2 gm/ 100 mls @ 200 mls/hr 03/30/19 18:00 04/03/19 05:28 Dextrose IVPB 200 mls/hr Q12H [facility] Administration Protocol Ampicillin Sodium 2 gm/ Sodium 100 mls @ 200 mls/hr 03/31/19 15:00 04/03/19 09:11 Chloride IVPB 200 mls/hr Q6H-IV [facility] Administration Protocol Lactobacillus Acidophilus 1 tab 03/31/19 12:00 04/03/19 09:12 Bacid - PO 1 tab DAILY [facility] Administration Memantine 5 mg 03/27/19 22:00 04/03/19 09:12 Namenda - PO 5 mg BID [facility] Administration Metoprolol Succinate 25 mg 03/28/19 10:00 04/03/19 09:12 Toprol Xl - PO 25 mg DAILY [facility] Administration Mirtazapine 15 mg 03/28/19 22:00 04/02/19 21:38 Remeron - PO 15 mg HS [facility] Administration Pantoprazole Sodium 40 mg 03/28/19 13:00 04/03/19 09:12 Protonix - PO 40 mg DAILY [facility] Administration Potassium Chloride 40 meq 04/02/19 13:30 04/03/19 09:11 Potassium Chloride Oral Liquid PO 40 meq BID [facility] Administration Impression 1. LILLIE 2. chf 3. mitral regurg 4. dementia 5. a-fib 6. hld 7. solitary right kidney 8. UTI 9. right side hydro 10. bacteremia 11. hypernatremia 12. hypokalemia Plan - resume d5w with potassium - pt has poor po intake, encourage po intake - lasix on hold - monitor volume status - monitor output
--- NOTE | 2019-04-03 15:08 | PN ---
Progress Note, Physician - Current Medication List Current Medications: Active Medications Amiodarone HCl (Cordarone -) 100 mg PO DAILY [facility] Last Admin: 04/03/19 09:12 Dose: 100 mg Apixaban (Eliquis -) 2.5 mg PO BID [facility] Last Admin: 04/03/19 09:12 Dose: 2.5 mg Atorvastatin Calcium (Lipitor -) 10 mg PO HS [facility] Last Admin: 04/02/19 21:39 Dose: 10 mg Donepezil HCl (Aricept -) 10 mg PO DAILY [facility] Last Admin: 04/03/19 09:12 Dose: 10 mg Fluoxetine HCl (Prozac -) 20 mg PO DAILY [facility] Last Admin: 04/03/19 09:12 Dose: 20 mg Ceftriaxone Sodium 2 gm/ (Dextrose) 100 mls @ 200 mls/hr IVPB Q12H [facility]; Protocol Last Admin: 04/03/19 05:28 Dose: 200 mls/hr Ampicillin Sodium 2 gm/ Sodium (Chloride) 100 mls @ 200 mls/hr IVPB Q6H-IV [facility] ; Protocol Last Admin: 04/03/19 14:29 Dose: 200 mls/hr Potassium Chloride 10 meq/ (Dextrose) 1,005 mls @ 60 mls/hr IVPB Q16H [facility] Lactobacillus Acidophilus (Bacid -) 1 tab PO DAILY [facility] Last Admin: 04/03/19 09:12 Dose: 1 tab Memantine (Namenda -) 5 mg PO BID [facility] Last Admin: 04/03/19 09:12 Dose: 5 mg Metoprolol Succinate (Toprol Xl -) 25 mg PO DAILY [facility] Last Admin: 04/03/19 09:12 Dose: 25 mg Mirtazapine (Remeron -) 15 mg PO HS [facility] Last Admin: 04/02/19 21:38 Dose: 15 mg Pantoprazole Sodium (Protonix -) 40 mg PO DAILY [facility] Last Admin: 04/03/19 09:12 Dose: 40 mg Potassium Chloride (Potassium Chloride Oral Liquid) 40 meq PO BID [facility] Last Admin: 04/03/19 09:11 Dose: 40 meq - Objective Vital Signs: Vital Signs Temperature 98.0 F 04/03/19 09:04 Pulse Rate 74 04/03/19 09:04 Respiratory Rate 18 04/03/19 09:04 Blood Pressure 110/58 L 04/03/19 09:04 O2 Sat by Pulse Oximetry (%) 96 04/03/19 09:00 Constitutional: Yes: No Distress HENT: Yes: Atraumatic Neck: Yes: Supple Respiratory: Yes: CTA Bilaterally Gastrointestinal: Yes: Normal Bowel Sounds Extremities: Yes: WNL Edema: No Peripheral Pulses WNL: Yes Neurological: Yes: Alert, Oriented Labs: CBC, BMP 04/03/19 06:33 04/03/19 06:33 Problem List - Problems (1) LILLIE (acute kidney injury) Assessment/Plan: cr improving Code(s): N17.9 - ACUTE KIDNEY FAILURE, UNSPECIFIED (2) Elevated troponin Assessment/Plan: monitor demand ischemia? cardio consult Code(s): R74.8 - ABNORMAL LEVELS OF OTHER SERUM ENZYMES (3) CHF (congestive heart failure) Code(s): I50.9 - HEART FAILURE, UNSPECIFIED (4) Dementia Code(s): F03.90 - UNSPECIFIED DEMENTIA WITHOUT BEHAVIORAL DISTURBANCE (5) GERD (gastroesophageal reflux disease) Code(s): K21.9 - GASTRO-ESOPHAGEAL REFLUX DISEASE WITHOUT ESOPHAGITIS (6) Atrial fibrillation Assessment/Plan: on meds Code(s): I48.91 - UNSPECIFIED ATRIAL FIBRILLATION Qualifiers: Atrial fibrillation type: paroxysmal Qualified Code(s): I48.0 - Paroxysmal atrial fibrillation (7) HTN (hypertension) Assessment/Plan: on meds monitor Code(s): I10 - ESSENTIAL (PRIMARY) HYPERTENSION (8) Positive blood culture Assessment/Plan: on abx id consult Code(s): R78.81 - BACTEREMIA Assessment/Plan ALL NOTES REVIEWED D/W CARDIO NEED IV ABX/PICC LINE FOR 5 MORE WEEKS
--- NOTE | 2019-04-03 15:55 | PN ---
Progress Note (short form) - Note Progress Note: d/w cardiology d/w daughter by phone patient is eating poorly Vital Signs Period Temp Pulse Resp BP Sys/Rice Pulse Ox Last 24 Hr 97.8 F-99.2 F 70-78 18-20 101-114/57-76 96-96 cor-rrr 3/6 ry lungs clear abd soft,nt ext trace edema CBC, BMP 04/03/19 06:33 04/03/19 06:33 Microbiology 03/28/19 17:00 Blood - Peripheral Venous Blood Culture - Final NO GROWTH AFTER 5 DAYS INCUBATION 03/28/19 17:00 Blood - Peripheral Venous Blood Culture - Final NO GROWTH AFTER 5 DAYS INCUBATION 03/27/19 15:55 Blood - Peripheral Venous Blood Culture - Final Enterococcus Faecalis 03/27/19 15:55 Blood - Peripheral Venous Blood Culture - Final Enterococcus Faecalis 03/27/19 16:34 Urine - Urine Clean Catch Urine Culture - Final Contaminated: Please Repeat echo+valvular disease, no obvious vegetations noted a/p enterococcal bacteremia-cannot r/o endocarditis with vavluvlar heart disease and PPM no plans for VITA (high risk), plan 6 weeks amp/rocephin repeat blood culture negative suspect urinary source with pyuria on admission valvular heart disease PPM continue ampicillin/ceftriaxone day #7 antibiotics- 5 more weeks to go spoke with zoey at length [facility] being considered as an option Problem List - Problems (1) Positive blood culture Code(s): R78.81 - BACTEREMIA (2) LILLIE (acute kidney injury) Code(s): N17.9 - ACUTE KIDNEY FAILURE, UNSPECIFIED (3) Mitral valve regurgitation Code(s): I34.0 - NONRHEUMATIC MITRAL (VALVE) INSUFFICIENCY (4) Pacemaker Code(s): Z95.0 - PRESENCE OF CARDIAC PACEMAKER
[2019-04-03] MEDS: POTASSIUM CHLORIDE 10 MEQ in DEXTROSE 5%-WATER - 1,000 ML IVPB SCH (17:08)
[2019-04-03] MEDS: MIRTAZAPINE 15 MG TABLET (FP) PO SCH (21:39)
[2019-04-03] MEDS: ATORVASTATIN CA 10 MG TABLET (FP) PO SCH (21:40)
[2019-04-04] MEDS ORDERED: PT OWN MED DRAWER 7, Y5N ONE ×4 (03:14→21:49)
[2019-04-04] MEDS: AMPICILLIN - 2 GM in SODIUM CHLORIDE 100 ML IVPB SCH ×4 (03:31→22:03)
[2019-04-04] MEDS ORDERED: DEXTROSE 5%-WATER 100 ML IVPB ONE ×2 (05:07→17:24)
[2019-04-04] MEDS: POTASSIUM CHLORIDE 10 MEQ in DEXTROSE 5%-WATER - 1,000 ML IVPB SCH ×2 (05:18→23:03)
[2019-04-04] MEDS: CEFTRIAXONE 2 GM in DEXTROSE 5%-WATER 100 ML IVPB SCH ×2 (05:18→17:26)
[2019-04-04 07:43] LABS: ALK PHOS 88 U/L (45-117); ANION GAP 8 MMOL/L (8-16); BILIRUBIN,TOTAL < 0.1 mg/dL (0.2-1); CALCIUM 7.8 mg/dL (8.5-10.1); CHLORIDE 118 mmol/L (98-107); CO2 20 mmol/L (21-32); CREATININE 1.4 mg/dL (0.55-1.3); GLUCOSE,RANDOM 124 mg/dL (74-106); MAGNESIUM 1.9 mg/dL (1.8-2.4); SGOT/AST 25 U/L (15-37); SGPT/ALT 21 U/L (13-61); SODIUM 145 mmol/L (136-145); TOT PROT 5.9 g/dl (6.4-8.2)
[2019-04-04] MEDS: POTASSIUM CHLORIDE ORAL LIQUID 20 MEQ/15 ML PO SCH (09:15)
[2019-04-04] MEDS: APIXABAN 2.5 MG TABLET PO SCH ×2 (09:15→22:04)
[2019-04-04] MEDS: PANTOPRAZOLE 40 MG TABLET (FP) PO SCH (09:16)
[2019-04-04] MEDS: MEMANTINE HCL 5 MG TABLET (UD) PO SCH ×2 (09:16→22:04)
[2019-04-04] MEDS: metoPROLOL SUCCINATE 25 MG TAB.SR.24H (FP) PO SCH (09:16)
[2019-04-04] MEDS: AMIODARONE HCL 200 MG TABLET (FP) PO SCH (09:16)
[2019-04-04] MEDS: LACTOBACILLUS ACIDOPHILUS 1 TABLET PO SCH (09:16)
[2019-04-04] MEDS: DONEPEZIL HCL 10 MG TABLET (FP) PO SCH (09:16)
[2019-04-04] MEDS: FLUoxetine HCL 20 MG CAPSULE (FP) PO SCH (09:17)
--- NOTE | 2019-04-04 11:00 | PN ---
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 For PICC line today
--- NOTE | 2019-04-04 11:41 | PN ---
Progress Note (short form) - Note Progress Note: s: feels tired. no chest pain, palps, dizziness, dyspnea Current Medications Amiodarone HCl (Cordarone -) 100 mg PO DAILY [facility] Last Admin: 04/04/19 09:16 Dose: 100 mg Apixaban (Eliquis -) 2.5 mg PO BID [facility] Last Admin: 04/03/19 21:40 Dose: 2.5 mg Atorvastatin Calcium (Lipitor -) 10 mg PO HS [facility] Last Admin: 04/03/19 21:40 Dose: 10 mg Donepezil HCl (Aricept -) 10 mg PO DAILY [facility] Last Admin: 04/04/19 09:16 Dose: 10 mg Fluoxetine HCl (Prozac -) 20 mg PO DAILY [facility] Last Admin: 04/04/19 09:17 Dose: 20 mg Ceftriaxone Sodium 2 gm/ (Dextrose) 100 mls @ 200 mls/hr IVPB Q12H [facility]; Protocol Last Admin: 04/04/19 05:18 Dose: 200 mls/hr Ampicillin Sodium 2 gm/ Sodium (Chloride) 100 mls @ 200 mls/hr IVPB Q6H-IV [facility] ; Protocol Last Admin: 04/04/19 08:48 Dose: 200 mls/hr Potassium Chloride 10 meq/ (Dextrose) 1,005 mls @ 60 mls/hr IVPB Q16H [facility] Last Admin: 04/04/19 05:18 Dose: Not Given Lactobacillus Acidophilus (Bacid -) 1 tab PO DAILY [facility] Last Admin: 04/04/19 09:16 Dose: 1 tab Memantine (Namenda -) 5 mg PO BID [facility] Last Admin: 04/04/19 09:16 Dose: 5 mg Metoprolol Succinate (Toprol Xl -) 25 mg PO DAILY [facility] Last Admin: 04/04/19 09:16 Dose: 25 mg Mirtazapine (Remeron -) 15 mg PO HS [facility] Last Admin: 04/03/19 21:39 Dose: 15 mg Pantoprazole Sodium (Protonix -) 40 mg PO DAILY [facility] Last Admin: 04/04/19 09:16 Dose: 40 mg Potassium Chloride (Potassium Chloride Oral Liquid) 40 meq PO BID [facility] Last Admin: 04/04/19 09:15 Dose: 40 meq Vital Signs Period Temp Pulse Resp BP Sys/Rice Pulse Ox Last 24 Hr 97.7 F-99.2 F 77-83 16-20 109-129/50-69 96-96 Constitutional: Yes: No Distress, Calm Eyes: No: Sclera Icterus HENT: No: Nasal Congestion Cardiovascular: Yes: Regular Rate and Rhythm, Murmur (MR murmur apex--stable), S1, S2, Other (PMI non diplaced). No: JVD, Gallop Respiratory: Yes: CTA Bilaterally. No: Accessory Muscle Use, Rales, Wheezes Gastrointestinal: Yes: Normal Bowel Sounds, Soft. No: Tenderness Musculoskeletal: Yes: Other (No kyphosis) Extremities: No: Cold Edema: No Integumentary: No: Jaundice Neurological: Yes: Alert, Oriented (x3) Psychiatric: No: Agitated Assessment/Plan CXR: clear lungs/pleura EKG sinus, prolonged QTc 515 ms, stable compared to prior echo 03/2019 mild conc LVH, pseudonormalization, RV nl, PPM in R heart, RV function nl, LA severely dilated, mod MAC, significant prolapse vs partial flail of post mitral leaflet, severe eccentric anteriorly directed MR, mild to mod TR, RVSP elevated 40-50 mmHg, mild AR, no obvoius intracardiac vegetations seen tele: sinus, [employer] sepsis, E. faecalis bacteremia, UTI - ID input appreciated, likely urinary source - no obvious vegetation on echo. repeat bld cx ngtd. no signs of cardiogenic shock, CVA, acute HF - case has been disc'd by our team with dr bland who feels that conservative mgmt with 6 wks of abx is preferable given she is hi risk for complications of [place] ([place] [facility] [place] and unrevealing VITA will not definitively exclude risk of SBE given in light of indwelling PM leads - dr bland will discuss with dtr and rec 6 wks abx course - for now, continue current therapy - PICC line today dehydration, hypernatremia, LILLIE: - weakness, dehydration improved with IVF - cautious use of IVF given severe MR, recent admissions for CHF - renal fxn improving slowly - f/u renal team rec.s elevated trop - indeterminate range, flat trend, no ischemic changes - less likely ACS - likely demand in setting of sepsis chronic diastolic chf, severe MR: - initially felt to be dry. 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 sec to sepsis -monitor trends and stools -cont AC for now VTach: -NSVT on tele during prior admissions -K/Mag per usual aggressive targets (08/09) -low dose BB as soft bp's allow hld: -cont home statin Progressive Cognitive decline: -Followed by Neuro as outpt
--- NOTE | 2019-04-04 12:36 | DS ---
Physical Examination Vital Signs: Vital Signs Temperature 98.0 F 04/04/19 08:17 Pulse Rate 81 04/04/19 08:17 Respiratory Rate 20 04/04/19 08:18 Blood Pressure 112/63 04/04/19 08:17 O2 Sat by Pulse Oximetry (%) 96 04/04/19 08:18 Constitutional: Yes: No Distress HENT: Yes: Atraumatic Neck: Yes: Supple Cardiovascular: Yes: Regular Rate and Rhythm Respiratory: Yes: CTA Bilaterally Gastrointestinal: Yes: Normal Bowel Sounds Extremities: Yes: WNL Neurological: Yes: Alert Labs: CBC, BMP 04/03/19 06:33 04/04/19 05:55 Discharge Summary Problems reviewed: Yes Reason For Visit: ACUTE KIDNEY INJURY Current Active Problems LILLIE (acute kidney injury) (Acute) Dehydration (Acute) Elevated troponin (Acute) Hypernatremia (Acute) Malaise (Acute) Pacemaker (Acute) Positive blood culture (Acute) Weakness (Acute) Condition: Fair - Instructions Diet, Activity, Other Instructions: IV ABX AND PRESCRIPTION PER ID continue ampicillin/ceftriaxone day #7 antibiotics today 04/03- 5 more weeks to go Referrals: Guerrero Albert [Primary Care Provider] - Elizabeth Amador MD [Staff Physician] - - Home Medications Comprehensive Discharge Medication List: Ambulatory Orders Apixaban [Eliquis] 2.5 mg PO BID 03/07/19 Atorvastatin Ca [Lipitor] 10 mg PO HS 03/07/19 Cyanocobalamin (Vitamin B-12) [Vitamin B-12] 2,000 mcg PO DAILY 03/07/19 Docusate Sodium [Colace] 100 mg PO TID 03/07/19 Donepezil HCl [Aricept] 10 mg PO DAILY 03/07/19 Furosemide [Lasix] 40 mg PO BID 03/07/19 Lorazepam [Ativan] 0.5 mg PO PRN PRN 03/07/19 Memantine HCl [Namenda -] 5 mg PO BID 03/07/19 Metoprolol Succinate [Toprol Xl] 25 mg PO DAILY 03/07/19 Mirtazapine [Remeron -] 15 mg PO HS 03/07/19 Pantoprazole Sodium [Protonix] 40 mg PO DAILY 03/07/19 Potassium Chloride [Klor-Con] 40 meq PO DAILY 03/07/19 Amiodarone HCl [Cordarone -] 100 mg PO DAILY tablet 03/15/19 Ampicillin - 2 gm IVPB Q6H-IV #30 vial 04/03/19 Ceftriaxone [Rocephin -] 2 gm IVPB Q12H #30 vial 04/03/19 HOLD DC PER RENAL
--- NOTE | 2019-04-04 14:34 | PN ---
Progress Note, Physician History of Present Illness: Pt seen and examined at bedside. She is still not eating much. She remains on fluids. - Current Medication List Current Medications: Active Medications Amiodarone HCl (Cordarone -) 100 mg PO DAILY [facility] Last Admin: 04/04/19 09:16 Dose: 100 mg Apixaban (Eliquis -) 2.5 mg PO BID [facility] Last Admin: 04/04/19 09:15 Dose: 2.5 mg Atorvastatin Calcium (Lipitor -) 10 mg PO HS [facility] Last Admin: 04/03/19 21:40 Dose: 10 mg Donepezil HCl (Aricept -) 10 mg PO DAILY [facility] Last Admin: 04/04/19 09:16 Dose: 10 mg Fluoxetine HCl (Prozac -) 20 mg PO DAILY [facility] Last Admin: 04/04/19 09:17 Dose: 20 mg Ceftriaxone Sodium 2 gm/ (Dextrose) 100 mls @ 200 mls/hr IVPB Q12H [facility]; Protocol Last Admin: 04/04/19 05:18 Dose: 200 mls/hr Ampicillin Sodium 2 gm/ Sodium (Chloride) 100 mls @ 200 mls/hr IVPB Q6H-IV [facility] ; Protocol Last Admin: 04/04/19 14:07 Dose: 200 mls/hr Potassium Chloride 10 meq/ (Dextrose) 1,005 mls @ 60 mls/hr IVPB Q16H [facility] Last Admin: 04/04/19 05:18 Dose: Not Given Lactobacillus Acidophilus (Bacid -) 1 tab PO DAILY [facility] Last Admin: 04/04/19 09:16 Dose: 1 tab Memantine (Namenda -) 5 mg PO BID [facility] Last Admin: 04/04/19 09:16 Dose: 5 mg Metoprolol Succinate (Toprol Xl -) 25 mg PO DAILY [facility] Last Admin: 04/04/19 09:16 Dose: 25 mg Mirtazapine (Remeron -) 15 mg PO HS [facility] Last Admin: 04/03/19 21:39 Dose: 15 mg Pantoprazole Sodium (Protonix -) 40 mg PO DAILY [facility] Last Admin: 04/04/19 09:16 Dose: 40 mg Potassium Chloride (Potassium Chloride Oral Liquid) 40 meq PO BID [facility] Last Admin: 04/04/19 09:15 Dose: 40 meq - Objective Vital Signs: Vital Signs Temperature 98.0 F 04/04/19 08:17 Pulse Rate 81 04/04/19 08:17 Respiratory Rate 20 04/04/19 08:18 Blood Pressure 112/63 04/04/19 08:17 O2 Sat by Pulse Oximetry (%) 96 04/04/19 08:18 Constitutional: Yes: Calm Eyes: Yes: Conjunctiva Clear HENT: Yes: Atraumatic Neck: Yes: Supple Cardiovascular: Yes: S1, S2 Respiratory: Yes: CTA Bilaterally Gastrointestinal: Yes: Soft Genitourinary: Yes: Incontinence Musculoskeletal: Yes: Muscle Weakness Edema: No Integumentary: Yes: WNL Neurological: Yes: Confusion Labs: CBC, BMP 04/03/19 06:33 04/04/19 05:55 Problem List - Problems (1) LILLIE (acute kidney injury) Code(s): N17.9 - ACUTE KIDNEY FAILURE, UNSPECIFIED (2) Hypernatremia Code(s): E87.0 - HYPEROSMOLALITY AND HYPERNATREMIA Assessment/Plan Current Medications Generic Name Dose Route Start Last Admin Trade Name Jose PRN Reason Stop Dose Admin Amiodarone HCl 100 mg 03/28/19 10:00 04/04/19 09:16 Cordarone - PO 100 mg DAILY [facility] Administration Apixaban 2.5 mg 03/27/19 22:00 04/04/19 09:15 Eliquis - PO 2.5 mg BID [facility] Administration Atorvastatin Calcium 10 mg 03/27/19 22:00 04/03/19 21:40 Lipitor - PO 10 mg HS [facility] Administration Donepezil HCl 10 mg 03/28/19 10:00 04/04/19 09:16 Aricept - PO 10 mg DAILY [facility] Administration Fluoxetine HCl 20 mg 03/28/19 13:00 04/04/19 09:17 Prozac - PO 20 mg DAILY [facility] Administration Ceftriaxone Sodium 2 gm/ 100 mls @ 200 mls/hr 03/30/19 18:00 04/04/19 05:18 Dextrose IVPB 200 mls/hr Q12H [facility] Administration Protocol Ampicillin Sodium 2 gm/ Sodium 100 mls @ 200 mls/hr 03/31/19 15:00 04/04/19 14:07 Chloride IVPB 200 mls/hr Q6H-IV [facility] Administration Protocol Potassium Chloride 10 meq/ 1,005 mls @ 60 mls/hr 04/03/19 14:00 04/04/19 05: 18 Dextrose IVPB Not Given Q16H [facility] Lactobacillus Acidophilus 1 tab 03/31/19 12:00 04/04/19 09:16 Bacid - PO 1 tab DAILY [facility] Administration Memantine 5 mg 03/27/19 22:00 04/04/19 09:16 Namenda - PO 5 mg BID [facility] Administration Metoprolol Succinate 25 mg 03/28/19 10:00 04/04/19 09:16 Toprol Xl - PO 25 mg DAILY [facility] Administration Mirtazapine 15 mg 03/28/19 22:00 04/03/19 21:39 Remeron - PO 15 mg HS [facility] Administration Pantoprazole Sodium 40 mg 03/28/19 13:00 04/04/19 09:16 Protonix - PO 40 mg DAILY [facility] Administration Potassium Chloride 40 meq 04/02/19 13:30 04/04/19 09:15 Potassium Chloride Oral Liquid PO 40 meq BID [facility] Administration Impression 1. LILLIE 2. chf 3. mitral regurg 4. dementia 5. a-fib 6. hld 7. solitary right kidney 8. UTI 9. right side hydro 10. bacteremia 11. hypernatremia 12. hypokalemia Plan - pt with poor po intake - pt remain on fluids, renal function is still in flux, she is not at baseline - renal dose meds, renal function changing - diuretics are still on hold, will need to get off of fluids before they are restarted - change potassium to daily
--- NOTE | 2019-04-04 17:33 | PN ---
Progress Note, Physician - Current Medication List Current Medications: Active Medications Amiodarone HCl (Cordarone -) 100 mg PO DAILY [facility] Last Admin: 04/04/19 09:16 Dose: 100 mg Apixaban (Eliquis -) 2.5 mg PO BID [facility] Last Admin: 04/04/19 09:15 Dose: 2.5 mg Atorvastatin Calcium (Lipitor -) 10 mg PO HS [facility] Last Admin: 04/03/19 21:40 Dose: 10 mg Donepezil HCl (Aricept -) 10 mg PO DAILY [facility] Last Admin: 04/04/19 09:16 Dose: 10 mg Fluoxetine HCl (Prozac -) 20 mg PO DAILY [facility] Last Admin: 04/04/19 09:17 Dose: 20 mg Ceftriaxone Sodium 2 gm/ (Dextrose) 100 mls @ 200 mls/hr IVPB Q12H [facility]; Protocol Last Admin: 04/04/19 17:26 Dose: 200 mls/hr Ampicillin Sodium 2 gm/ Sodium (Chloride) 100 mls @ 200 mls/hr IVPB Q6H-IV [facility] ; Protocol Last Admin: 04/04/19 14:07 Dose: 200 mls/hr Potassium Chloride 10 meq/ (Dextrose) 1,005 mls @ 60 mls/hr IVPB Q16H [facility] Last Admin: 04/04/19 05:18 Dose: Not Given Lactobacillus Acidophilus (Bacid -) 1 tab PO DAILY [facility] Last Admin: 04/04/19 09:16 Dose: 1 tab Memantine (Namenda -) 5 mg PO BID [facility] Last Admin: 04/04/19 09:16 Dose: 5 mg Metoprolol Succinate (Toprol Xl -) 25 mg PO DAILY [facility] Last Admin: 04/04/19 09:16 Dose: 25 mg Mirtazapine (Remeron -) 15 mg PO HS [facility] Last Admin: 04/03/19 21:39 Dose: 15 mg Pantoprazole Sodium (Protonix -) 40 mg PO DAILY [facility] Last Admin: 04/04/19 09:16 Dose: 40 mg Potassium Chloride (Potassium Chloride Oral Liquid) 40 meq PO DAILY [facility] - Objective Vital Signs: Vital Signs Temperature 98.0 F 04/04/19 08:17 Pulse Rate 81 04/04/19 08:17 Respiratory Rate 20 04/04/19 08:18 Blood Pressure 112/63 04/04/19 08:17 O2 Sat by Pulse Oximetry (%) 96 04/04/19 08:18 Constitutional: Yes: No Distress HENT: Yes: Atraumatic Neck: Yes: Supple Cardiovascular: Yes: Regular Rate and Rhythm Respiratory: Yes: CTA Bilaterally Gastrointestinal: Yes: Normal Bowel Sounds Extremities: Yes: WNL Neurological: Yes: Alert, Oriented Labs: CBC, BMP 04/03/19 06:33 04/04/19 05:55 Problem List - Problems (1) LILLIE (acute kidney injury) Assessment/Plan: cr improving on ivf per renal Code(s): N17.9 - ACUTE KIDNEY FAILURE, UNSPECIFIED (2) Elevated troponin Code(s): R74.8 - ABNORMAL LEVELS OF OTHER SERUM ENZYMES (3) CHF (congestive heart failure) Code(s): I50.9 - HEART FAILURE, UNSPECIFIED (4) Dementia Code(s): F03.90 - UNSPECIFIED DEMENTIA WITHOUT BEHAVIORAL DISTURBANCE (5) GERD (gastroesophageal reflux disease) Code(s): K21.9 - GASTRO-ESOPHAGEAL REFLUX DISEASE WITHOUT ESOPHAGITIS (6) Atrial fibrillation Assessment/Plan: on meds Code(s): I48.91 - UNSPECIFIED ATRIAL FIBRILLATION Qualifiers: Atrial fibrillation type: paroxysmal Qualified Code(s): I48.0 - Paroxysmal atrial fibrillation (7) HTN (hypertension) Assessment/Plan: on meds monitor Code(s): I10 - ESSENTIAL (PRIMARY) HYPERTENSION (8) Positive blood culture Assessment/Plan: on abx id consult Code(s): R78.81 - BACTEREMIA
[2019-04-04] MEDS: ATORVASTATIN CA 10 MG TABLET (FP) PO SCH (22:05)
[2019-04-04] MEDS: MIRTAZAPINE 15 MG TABLET (FP) PO SCH (22:05)
[2019-04-05] MEDS ORDERED: PT OWN MED DRAWER 7, Y5N ONE ×5 (02:28→20:22)
[2019-04-05] MEDS: AMPICILLIN - 2 GM in SODIUM CHLORIDE 100 ML IVPB SCH ×4 (02:36→20:50)
[2019-04-05] MEDS ORDERED: DEXTROSE 5%-WATER 100 ML IVPB ONE ×2 (05:06→17:25)
[2019-04-05] MEDS: CEFTRIAXONE 2 GM in DEXTROSE 5%-WATER 100 ML IVPB SCH ×2 (05:41→17:28)
[2019-04-05 07:14] LABS: ALBUMIN 1.6 g/dl (3.4-5.0); BILIRUBIN,TOTAL 0.2 mg/dL (0.2-1); BLOOD UREA NITROGEN 21.2 mg/dL (7-18); CALCIUM 7.4 mg/dL (8.5-10.1); CREATININE 1.4 mg/dL (0.55-1.3); POTASSIUM 3.3 mmol/L (3.5-5.1); TOT PROT 4.7 g/dl (6.4-8.2)
[2019-04-05] MEDS ORDERED: ONDANSETRON 4 MG/2 ML VIAL IVPUSH ONE (07:26)
[2019-04-05] MEDS: DONEPEZIL HCL 10 MG TABLET (FP) PO SCH (09:05)
[2019-04-05] MEDS: metoPROLOL SUCCINATE 25 MG TAB.SR.24H (FP) PO SCH (09:05)
[2019-04-05] MEDS: AMIODARONE HCL 200 MG TABLET (FP) PO SCH (09:05)
[2019-04-05] MEDS: PANTOPRAZOLE 40 MG TABLET (FP) PO SCH (09:05)
[2019-04-05] MEDS: APIXABAN 2.5 MG TABLET PO SCH ×2 (09:05→21:23)
[2019-04-05] MEDS: FLUoxetine HCL 20 MG CAPSULE (FP) PO SCH (09:05)
[2019-04-05] MEDS: LACTOBACILLUS ACIDOPHILUS 1 TABLET PO SCH (09:05)
[2019-04-05] MEDS: POTASSIUM CHLORIDE ORAL LIQUID 20 MEQ/15 ML PO SCH (09:06)
[2019-04-05] MEDS: MEMANTINE HCL 5 MG TABLET (UD) PO SCH ×2 (09:08→21:14)
[2019-04-05] MEDS ORDERED: POTASSIUM CHLORIDE 10 MEQ in DEXTROSE 5%-WATER - 1,000 ML IVPB SCH ×2 (11:07→20:22)
--- NOTE | 2019-04-05 11:07 | PN ---
Progress Note, Physician History of Present Illness: Pt seen and examined at bedside. She is not eating. She did have an episode of vomiting. She is confused. - Current Medication List Current Medications: Active Medications Amiodarone HCl (Cordarone -) 100 mg PO DAILY [facility] Last Admin: 04/05/19 09:05 Dose: 100 mg Apixaban (Eliquis -) 2.5 mg PO BID [facility] Last Admin: 04/05/19 09:05 Dose: 2.5 mg Atorvastatin Calcium (Lipitor -) 10 mg PO HS [facility] Last Admin: 04/04/19 22:05 Dose: 10 mg Donepezil HCl (Aricept -) 10 mg PO DAILY [facility] Last Admin: 04/05/19 09:05 Dose: 10 mg Fluoxetine HCl (Prozac -) 20 mg PO DAILY [facility] Last Admin: 04/05/19 09:05 Dose: 20 mg Ceftriaxone Sodium 2 gm/ (Dextrose) 100 mls @ 200 mls/hr IVPB Q12H [facility]; Protocol Last Admin: 04/05/19 05:41 Dose: 200 mls/hr Ampicillin Sodium 2 gm/ Sodium (Chloride) 100 mls @ 200 mls/hr IVPB Q6H-IV [facility] ; Protocol Last Admin: 04/05/19 09:06 Dose: 200 mls/hr Potassium Chloride 10 meq/ (Dextrose) 1,005 mls @ 60 mls/hr IVPB Q16H [facility] Last Admin: 04/04/19 23:03 Dose: Not Given Lactobacillus Acidophilus (Bacid -) 1 tab PO DAILY [facility] Last Admin: 04/05/19 09:05 Dose: 1 tab Memantine (Namenda -) 5 mg PO BID [facility] Last Admin: 04/05/19 09:08 Dose: 5 mg Metoprolol Succinate (Toprol Xl -) 25 mg PO DAILY [facility] Last Admin: 04/05/19 09:05 Dose: 25 mg Mirtazapine (Remeron -) 15 mg PO HS [facility] Last Admin: 04/04/19 22:05 Dose: 15 mg Pantoprazole Sodium (Protonix -) 40 mg PO DAILY [facility] Last Admin: 04/05/19 09:05 Dose: 40 mg Potassium Chloride (Potassium Chloride Oral Liquid) 40 meq PO DAILY [facility] Last Admin: 04/05/19 09:06 Dose: 40 meq - Objective Vital Signs: Vital Signs Temperature 98.3 F 04/05/19 08:23 Pulse Rate 92 H 04/05/19 08:23 Respiratory Rate 20 04/05/19 08:25 Blood Pressure 127/50 L 04/05/19 08:23 O2 Sat by Pulse Oximetry (%) 94 L 04/05/19 08:25 Constitutional: Yes: Calm Eyes: Yes: Conjunctiva Clear HENT: Yes: Atraumatic Neck: Yes: Supple Cardiovascular: Yes: S1, S2 Respiratory: Yes: CTA Bilaterally Gastrointestinal: Yes: Soft Genitourinary: Yes: WNL Musculoskeletal: Yes: WNL Edema: No Neurological: Yes: Confusion Labs: CBC, BMP 04/03/19 06:33 04/05/19 05:40 Problem List - Problems (1) LILLIE (acute kidney injury) Code(s): N17.9 - ACUTE KIDNEY FAILURE, UNSPECIFIED (2) Hypernatremia Code(s): E87.0 - HYPEROSMOLALITY AND HYPERNATREMIA Assessment/Plan Current Medications Generic Name Dose Route Start Last Admin Trade Name Jose PRN Reason Stop Dose Admin Amiodarone HCl 100 mg 03/28/19 10:00 04/05/19 09:05 Cordarone - PO 100 mg DAILY [facility] Administration Apixaban 2.5 mg 03/27/19 22:00 04/05/19 09:05 Eliquis - PO 2.5 mg BID [facility] Administration Atorvastatin Calcium 10 mg 03/27/19 22:00 04/04/19 22:05 Lipitor - PO 10 mg HS [facility] Administration Donepezil HCl 10 mg 03/28/19 10:00 04/05/19 09:05 Aricept - PO 10 mg DAILY [facility] Administration Fluoxetine HCl 20 mg 03/28/19 13:00 04/05/19 09:05 Prozac - PO 20 mg DAILY [facility] Administration Ceftriaxone Sodium 2 gm/ 100 mls @ 200 mls/hr 03/30/19 18:00 04/05/19 05:41 Dextrose IVPB 200 mls/hr Q12H [facility] Administration Protocol Ampicillin Sodium 2 gm/ Sodium 100 mls @ 200 mls/hr 03/31/19 15:00 04/05/19 09:06 Chloride IVPB 200 mls/hr Q6H-IV [facility] Administration Protocol Potassium Chloride 10 meq/ 1,005 mls @ 60 mls/hr 04/03/19 14:00 04/04/19 23: 03 Dextrose IVPB Not Given Q16H [facility] Lactobacillus Acidophilus 1 tab 03/31/19 12:00 04/05/19 09:05 Bacid - PO 1 tab DAILY [facility] Administration Memantine 5 mg 03/27/19 22:00 04/05/19 09:08 Namenda - PO 5 mg BID [facility] Administration Metoprolol Succinate 25 mg 03/28/19 10:00 04/05/19 09:05 Toprol Xl - PO 25 mg DAILY [facility] Administration Mirtazapine 15 mg 03/28/19 22:00 04/04/19 22:05 Remeron - PO 15 mg HS [facility] Administration Pantoprazole Sodium 40 mg 03/28/19 13:00 04/05/19 09:05 Protonix - PO 40 mg DAILY [facility] Administration Potassium Chloride 40 meq 04/05/19 10:00 04/05/19 09:06 Potassium Chloride Oral Liquid PO 40 meq DAILY [facility] Administration Impression 1. LILLIE 2. chf 3. mitral regurg 4. dementia 5. a-fib 6. hld 7. solitary right kidney 8. UTI 9. right side hydro 10. bacteremia 11. hypernatremia 12. hypokalemia Plan - cont d5w, increase rate - cont to monitor renal function - pt remains confused - diuretics on hold - abx per ID, machine printer hose unchanged - replace potassium - pt is doing poorly
--- NOTE | 2019-04-05 11:19 | PN ---
Progress Note (short form) - Note Progress Note: s: pt confused, not answering questiong appropriately Current Medications Amiodarone HCl (Cordarone -) 100 mg PO DAILY [facility] Last Admin: 04/05/19 09:05 Dose: 100 mg Apixaban (Eliquis -) 2.5 mg PO BID [facility] Last Admin: 04/05/19 09:05 Dose: 2.5 mg Atorvastatin Calcium (Lipitor -) 10 mg PO HS [facility] Last Admin: 04/04/19 22:05 Dose: 10 mg Donepezil HCl (Aricept -) 10 mg PO DAILY [facility] Last Admin: 04/05/19 09:05 Dose: 10 mg Fluoxetine HCl (Prozac -) 20 mg PO DAILY [facility] Last Admin: 04/05/19 09:05 Dose: 20 mg Ceftriaxone Sodium 2 gm/ (Dextrose) 100 mls @ 200 mls/hr IVPB Q12H [facility]; Protocol Last Admin: 04/05/19 05:41 Dose: 200 mls/hr Ampicillin Sodium 2 gm/ Sodium (Chloride) 100 mls @ 200 mls/hr IVPB Q6H-IV [facility] ; Protocol Last Admin: 04/05/19 09:06 Dose: 200 mls/hr Potassium Chloride 10 meq/ (Dextrose) 1,005 mls @ 80 mls/hr IVPB Q16H [facility] Lactobacillus Acidophilus (Bacid -) 1 tab PO DAILY [facility] Last Admin: 04/05/19 09:05 Dose: 1 tab Memantine (Namenda -) 5 mg PO BID [facility] Last Admin: 04/05/19 09:08 Dose: 5 mg Metoprolol Succinate (Toprol Xl -) 25 mg PO DAILY [facility] Last Admin: 04/05/19 09:05 Dose: 25 mg Mirtazapine (Remeron -) 15 mg PO HS [facility] Last Admin: 04/04/19 22:05 Dose: 15 mg Pantoprazole Sodium (Protonix -) 40 mg PO DAILY [facility] Last Admin: 04/05/19 09:05 Dose: 40 mg Potassium Chloride (Potassium Chloride Oral Liquid) 40 meq PO DAILY [facility] Last Admin: 04/05/19 09:06 Dose: 40 meq Vital Signs Period Temp Pulse Resp BP Sys/Rice Pulse Ox Last 24 Hr 97.4 F-98.3 F 68-92 20-20 97-127/50-85 94-94 Constitutional: Yes: No Distress, Calm Eyes: No: Sclera Icterus HENT: No: Nasal Congestion Cardiovascular: Yes: Regular Rate and Rhythm, Murmur (MR murmur apex--stable), S1, S2, Other (PMI non diplaced). No: JVD, Gallop Respiratory: Yes: CTA Bilaterally. No: Accessory Muscle Use, Rales, Wheezes Gastrointestinal: Yes: Normal Bowel Sounds, Soft. No: Tenderness Musculoskeletal: Yes: Other (No kyphosis) Extremities: No: Cold Edema: No Integumentary: No: Jaundice Neurological: Yes: Alert, Oriented (x3) Psychiatric: No: Agitated Assessment/Plan CXR: clear lungs/pleura EKG sinus, prolonged QTc 515 ms, stable compared to prior echo 03/2019 mild conc LVH, pseudonormalization, RV nl, PPM in R heart, RV function nl, LA severely dilated, mod MAC, significant prolapse vs partial flail of post mitral leaflet, severe eccentric anteriorly directed MR, mild to mod TR, RVSP elevated 40-50 mmHg, mild AR, no obvoius intracardiac vegetations seen tele: sinus, [employer] sepsis, E. faecalis bacteremia, UTI - ID input appreciated, likely urinary source - no obvious vegetation on echo. repeat bld cx ngtd. no signs of cardiogenic shock, CVA, acute HF - case has been disc'd by our team with dr bland who feels that conservative mgmt with 6 wks of abx is preferable given she is hi risk for complications of VITA (including if done at [facility] [place]) and unrevealing VITA will not definitively exclude risk of SBE given in light of indwelling PM leads - cont 6 wks abx course - s/p PICC line dehydration, hypernatremia, LILLIE: - weakness, dehydration improved with IVF - cautious use of IVF given severe MR, recent admissions for CHF - renal fxn improving slowly - f/u renal team recs elevated trop - indeterminate range, flat trend, no ischemic changes - less likely ACS - likely demand in setting of sepsis chronic diastolic chf, severe MR: - initially felt to be dry. 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 sec to sepsis -monitor trends and stools -cont AC for now VTach: -NSVT on tele during prior admissions -K/Mag per usual aggressive targets (08/09) -low dose BB as soft bp's allow hld: -cont home statin Progressive Cognitive decline: -Followed by Neuro as outpt
--- NOTE | 2019-04-05 12:11 | PN ---
Progress Note, [employer] - Note Progress Note: Selected Entries 04/04/19 04/04/19 04/05/19 12:15 19:28 08:23 Breakfast 50% Diet Tolerated Fair Refused Refused 04/05/19 10:54 Breakfast 25% Diet Tolerated Poor Limited appetite. Pt reported to have vomited this am.
--- NOTE | 2019-04-05 18:10 | PN ---
Progress Note (short form) - Note Progress Note: patient is eating poorly fluids being adjusted Vital Signs Period Temp Pulse Resp BP Sys/Rice Pulse Ox Last 24 Hr 97.8 F-98.3 F 68-92 18-20 97-127/50-64 94-94 cor-rrr lungs clear abd soft,nt ext no edema CBC, BMP 04/03/19 06:33 04/05/19 05:40 Microbiology 03/28/19 17:00 Blood - Peripheral Venous Blood Culture - Final NO GROWTH AFTER 5 DAYS INCUBATION 03/28/19 17:00 Blood - Peripheral Venous Blood Culture - Final NO GROWTH AFTER 5 DAYS INCUBATION 03/27/19 15:55 Blood - Peripheral Venous Blood Culture - Final Enterococcus Faecalis 03/27/19 15:55 Blood - Peripheral Venous Blood Culture - Final Enterococcus Faecalis 03/27/19 16:34 Urine - Urine Clean Catch Urine Culture - Final Contaminated: Please Repeat echo+valvular disease, no obvious vegetations noted a/p enterococcal bacteremia-cannot r/o endocarditis with vavluvlar heart disease and PPM no plans for VITA (high risk), plan 6 weeks amp/rocephin repeat blood culture negative suspect urinary source with pyuria on admission valvular heart disease PPM lillie/ckd- slowly improving continue ampicillin/ceftriaxone day #9 antibiotics- on probiotics as well Problem List - Problems (1) Positive blood culture Code(s): R78.81 - BACTEREMIA (2) LILLIE (acute kidney injury) Code(s): N17.9 - ACUTE KIDNEY FAILURE, UNSPECIFIED (3) Mitral valve regurgitation Code(s): I34.0 - NONRHEUMATIC MITRAL (VALVE) INSUFFICIENCY (4) Pacemaker Code(s): Z95.0 - PRESENCE OF CARDIAC PACEMAKER
--- NOTE | 2019-04-05 20:26 | PN ---
Progress Note, Physician History of Present Illness: stable - Current Medication List Current Medications: Active Medications Amiodarone HCl (Cordarone -) 100 mg PO DAILY [facility] Last Admin: 04/05/19 09:05 Dose: 100 mg Apixaban (Eliquis -) 2.5 mg PO BID [facility] Last Admin: 04/05/19 09:05 Dose: 2.5 mg Atorvastatin Calcium (Lipitor -) 10 mg PO HS [facility] Last Admin: 04/04/19 22:05 Dose: 10 mg Donepezil HCl (Aricept -) 10 mg PO DAILY [facility] Last Admin: 04/05/19 09:05 Dose: 10 mg Fluoxetine HCl (Prozac -) 20 mg PO DAILY [facility] Last Admin: 04/05/19 09:05 Dose: 20 mg Ceftriaxone Sodium 2 gm/ (Dextrose) 100 mls @ 200 mls/hr IVPB Q12H [facility]; Protocol Last Admin: 04/05/19 17:28 Dose: 200 mls/hr Ampicillin Sodium 2 gm/ Sodium (Chloride) 100 mls @ 200 mls/hr IVPB Q6H-IV [facility] ; Protocol Last Admin: 04/05/19 14:04 Dose: 200 mls/hr Potassium Chloride 10 meq/ (Dextrose) 1,005 mls @ 50 mls/hr IVPB Q16H [facility] Lactobacillus Acidophilus (Bacid -) 1 tab PO DAILY [facility] Last Admin: 04/05/19 09:05 Dose: 1 tab Memantine (Namenda -) 5 mg PO BID [facility] Last Admin: 04/05/19 09:08 Dose: 5 mg Metoprolol Succinate (Toprol Xl -) 25 mg PO DAILY [facility] Last Admin: 04/05/19 09:05 Dose: 25 mg Mirtazapine (Remeron -) 15 mg PO HS [facility] Last Admin: 04/04/19 22:05 Dose: 15 mg Pantoprazole Sodium (Protonix -) 40 mg PO DAILY [facility] Last Admin: 04/05/19 09:05 Dose: 40 mg Potassium Chloride (Potassium Chloride Oral Liquid) 40 meq PO DAILY [facility] Last Admin: 04/05/19 09:06 Dose: 40 meq - Objective Vital Signs: Vital Signs Temperature 97.7 F 04/05/19 17:00 Pulse Rate 81 04/05/19 17:00 Respiratory Rate 20 04/05/19 17:00 Blood Pressure 109/62 04/05/19 17:00 O2 Sat by Pulse Oximetry (%) 95 04/05/19 20:06 Constitutional: Yes: No Distress HENT: Yes: Atraumatic Neck: Yes: Supple Cardiovascular: Yes: Regular Rate and Rhythm Respiratory: Yes: Rhonchi Gastrointestinal: Yes: Normal Bowel Sounds Extremities: Yes: WNL Edema: No Neurological: Yes: Alert, Oriented Labs: CBC, BMP 04/03/19 06:33 04/05/19 05:40 Problem List - Problems (1) LILLIE (acute kidney injury) Assessment/Plan: cr improving on ivf per renal...will cut down to 50 cc per hour was hypoxic on RA now on 2l NC Code(s): N17.9 - ACUTE KIDNEY FAILURE, UNSPECIFIED (2) Elevated troponin Assessment/Plan: monitor demand ischemia? cardio consult Code(s): R74.8 - ABNORMAL LEVELS OF OTHER SERUM ENZYMES (3) CHF (congestive heart failure) Code(s): I50.9 - HEART FAILURE, UNSPECIFIED (4) Dementia Code(s): F03.90 - UNSPECIFIED DEMENTIA WITHOUT BEHAVIORAL DISTURBANCE (5) GERD (gastroesophageal reflux disease) Code(s): K21.9 - GASTRO-ESOPHAGEAL REFLUX DISEASE WITHOUT ESOPHAGITIS (6) Atrial fibrillation Assessment/Plan: on meds Code(s): I48.91 - UNSPECIFIED ATRIAL FIBRILLATION Qualifiers: Atrial fibrillation type: paroxysmal Qualified Code(s): I48.0 - Paroxysmal atrial fibrillation (7) HTN (hypertension) Assessment/Plan: on meds monitor Code(s): I10 - ESSENTIAL (PRIMARY) HYPERTENSION (8) Positive blood culture Code(s): R78.81 - BACTEREMIA
[2019-04-05] MEDS: MIRTAZAPINE 15 MG TABLET (FP) PO SCH (21:23)
[2019-04-05] MEDS: ATORVASTATIN CA 10 MG TABLET (FP) PO SCH (21:23)
[2019-04-06] MEDS: AMPICILLIN - 2 GM in SODIUM CHLORIDE 100 ML IVPB SCH ×4 (03:56→21:29)
[2019-04-06] MEDS ORDERED: DEXTROSE 5%-WATER 100 ML IVPB ONE ×2 (05:54→16:27)
[2019-04-06] MEDS: CEFTRIAXONE 2 GM in DEXTROSE 5%-WATER 100 ML IVPB SCH ×2 (06:43→17:44)
[2019-04-06 07:58] LABS: ALBUMIN 1.7 g/dl (3.4-5.0); BILIRUBIN,TOTAL 0.3 mg/dL (0.2-1); BLOOD UREA NITROGEN 20.9 mg/dL (7-18); CALCIUM 7.3 mg/dL (8.5-10.1); CREATININE 1.4 mg/dL (0.55-1.3); MAGNESIUM 1.4 mg/dL (1.8-2.4); POTASSIUM 3.3 mmol/L (3.5-5.1); TOT PROT 5.1 g/dl (6.4-8.2)
[2019-04-06] MEDS ORDERED: PT OWN MED DRAWER 7, Y5N ONE ×3 (09:02→19:20)
[2019-04-06] MEDS: AMIODARONE HCL 200 MG TABLET (FP) PO SCH (09:09)
[2019-04-06] MEDS: POTASSIUM CHLORIDE ORAL LIQUID 20 MEQ/15 ML PO SCH ×2 (09:10→21:30)
[2019-04-06] MEDS: MEMANTINE HCL 5 MG TABLET (UD) PO SCH ×2 (09:10→21:29)
[2019-04-06] MEDS: LACTOBACILLUS ACIDOPHILUS 1 TABLET PO SCH (09:10)
[2019-04-06] MEDS: metoPROLOL SUCCINATE 25 MG TAB.SR.24H (FP) PO SCH (09:10)
[2019-04-06] MEDS: FLUoxetine HCL 20 MG CAPSULE (FP) PO SCH (09:10)
[2019-04-06] MEDS: PANTOPRAZOLE 40 MG TABLET (FP) PO SCH (09:10)
[2019-04-06] MEDS: DONEPEZIL HCL 10 MG TABLET (FP) PO SCH (09:10)
[2019-04-06] MEDS: APIXABAN 2.5 MG TABLET PO SCH ×2 (09:10→21:29)
--- NOTE | 2019-04-06 09:12 | PN ---
Progress Note, Physician Chief Complaint: sitting comfortably in bed Denies CP or SOB TELE: NSR, VPCs/ - Current Medication List Current Medications: Active Medications Amiodarone HCl (Cordarone -) 100 mg PO DAILY [facility] Last Admin: 04/06/19 09:09 Dose: 100 mg Apixaban (Eliquis -) 2.5 mg PO BID [facility] Last Admin: 04/06/19 09:10 Dose: 2.5 mg Atorvastatin Calcium (Lipitor -) 10 mg PO HS [facility] Last Admin: 04/05/19 21:23 Dose: 10 mg Donepezil HCl (Aricept -) 10 mg PO DAILY [facility] Last Admin: 04/06/19 09:10 Dose: 10 mg Fluoxetine HCl (Prozac -) 20 mg PO DAILY [facility] Last Admin: 04/06/19 09:10 Dose: 20 mg Ceftriaxone Sodium 2 gm/ (Dextrose) 100 mls @ 200 mls/hr IVPB Q12H [facility]; Protocol Last Admin: 04/06/19 06:43 Dose: 200 mls/hr Ampicillin Sodium 2 gm/ Sodium (Chloride) 100 mls @ 200 mls/hr IVPB Q6H-IV [facility] ; Protocol Last Admin: 04/06/19 09:09 Dose: 200 mls/hr Potassium Chloride 10 meq/ (Dextrose) 1,005 mls @ 50 mls/hr IVPB Q20H [facility] Last Admin: 04/05/19 20:54 Dose: 50 mls/hr Lactobacillus Acidophilus (Bacid -) 1 tab PO DAILY [facility] Last Admin: 04/06/19 09:10 Dose: 1 tab Memantine (Namenda -) 5 mg PO BID [facility] Last Admin: 04/06/19 09:10 Dose: 5 mg Metoprolol Succinate (Toprol Xl -) 25 mg PO DAILY [facility] Last Admin: 04/06/19 09:10 Dose: 25 mg Mirtazapine (Remeron -) 15 mg PO HS [facility] Last Admin: 04/05/19 21:23 Dose: 15 mg Pantoprazole Sodium (Protonix -) 40 mg PO DAILY [facility] Last Admin: 04/06/19 09:10 Dose: 40 mg Potassium Chloride (Potassium Chloride Oral Liquid) 40 meq PO DAILY [facility] Last Admin: 04/06/19 09:10 Dose: 40 meq - Objective Vital Signs: Vital Signs Temperature 98.1 F 04/06/19 02:12 Pulse Rate 76 04/06/19 06:00 Respiratory Rate 20 04/06/19 07:58 Blood Pressure 108/64 04/06/19 06:00 O2 Sat by Pulse Oximetry (%) 95 04/05/19 20:06 Constitutional: Yes: No Distress Eyes: Yes: Conjunctiva Clear Cardiovascular: Yes: Regular Rate and Rhythm Respiratory: Yes: Rhonchi, Other (decreased breath sounds at bases.) Gastrointestinal: Yes: Soft Edema: No Neurological: Yes: Alert, Oriented Labs: CBC, BMP 04/03/19 06:33 04/06/19 06:03 Laboratory Tests 04/06/19 06:03 Sodium 142 Potassium 3.3 L BUN 20.9 H Creatinine 1.4 H - ....Imaging EKG: Image Reviewed Assessment/Plan Data: CXR: clear lungs/pleura EKG sinus, prolonged QTc 515 ms, stable compared to prior echo 03/2019 mild conc LVH, pseudonormalization, RV nl, PPM in R heart, RV function nl, LA severely dilated, mod MAC, significant prolapse vs partial flail of post mitral leaflet, severe eccentric anteriorly directed MR, mild to mod TR, RVSP elevated 40-50 mmHg, mild AR, no obvoius intracardiac vegetations seen tele: 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 faecalis bacteremia, UTI - ID input appreciated, likely urinary source - no obvious vegetation on echo. repeat bld cx ngtd. no signs of cardiogenic shock, CVA, acute HF - case has been disc'd by our team with dr art who feels that conservative mgmt with 6 wks of abx is preferable given she is hi risk for complications of VITA (including if done at [facility] [place]) and unrevealing VITA will not definitively exclude risk of SBE given in light of indwelling PM leads - cont 6 wks abx course - s/p PICC line dehydration, hypernatremia, LILLIE: - weakness, dehydration improved with IVF - cautious use of IVF given severe MR, recent admissions for CHF - renal fxn improving slowly, will need to resume diuretic at some point now that GFR has improved/stabilized - f/u renal team recs elevated trop: - indeterminate range, flat trend, no ischemic changes - less likely ACS - likely demand in setting of sepsis chronic diastolic chf, severe MR: - initially felt to be dry. 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 sec to sepsis -monitor trends and stools -cont AC for now -Repeat CBC VTach: -NSVT on tele during prior admissions -K/Mag per usual aggressive targets (08/09) -low dose BB as soft bp's allow hld: -cont home statin Progressive Cognitive decline: -Followed by Neuro as outpt
[2019-04-06] MEDS: FUROSEMIDE 40 MG TABLET (FP) PO SCH (12:25)
[2019-04-06] MEDS ORDERED: MAGNESIUM SULF 50% (8.12 MEQ/2 ML-1 GM VIAL) IVPB ONE (15:41)
--- NOTE | 2019-04-06 15:45 | PN ---
Progress Note, Physician History of Present Illness: Pt seen and examined at bedside. She does complain of some shortness of breath today. She is still not eating. She drinks ensure at times. - Current Medication List Current Medications: Active Medications Amiodarone HCl (Cordarone -) 100 mg PO DAILY [facility] Last Admin: 04/06/19 09:09 Dose: 100 mg Apixaban (Eliquis -) 2.5 mg PO BID [facility] Last Admin: 04/06/19 09:10 Dose: 2.5 mg Atorvastatin Calcium (Lipitor -) 10 mg PO [facility] Last Admin: 04/05/19 21:23 Dose: 10 mg Donepezil HCl (Aricept -) 10 mg PO DAILY [facility] Last Admin: 04/06/19 09:10 Dose: 10 mg Fluoxetine HCl (Prozac -) 20 mg PO DAILY [facility] Last Admin: 04/06/19 09:10 Dose: 20 mg Furosemide (Lasix -) 40 mg PO DAILY [facility] Last Admin: 04/06/19 12:25 Dose: 40 mg Ceftriaxone Sodium 2 gm/ (Dextrose) 100 mls @ 200 mls/hr IVPB Q12H [facility]; Protocol Last Admin: 04/06/19 06:43 Dose: 200 mls/hr Ampicillin Sodium 2 gm/ Sodium (Chloride) 100 mls @ 200 mls/hr IVPB Q6H-IV [facility] ; Protocol Last Admin: 04/06/19 09:09 Dose: 200 mls/hr Potassium Chloride 10 meq/ (Dextrose) 1,005 mls @ 50 mls/hr IVPB Q20H [facility] Last Admin: 04/05/19 20:54 Dose: 50 mls/hr Lactobacillus Acidophilus (Bacid -) 1 tab PO DAILY [facility] Last Admin: 04/06/19 09:10 Dose: 1 tab Magnesium Sulfate (Magnesium Sulfate) 2 gm IVPB ONCE ONE Stop: 04/06/19 15:42 Memantine (Namenda -) 5 mg PO BID [facility] Last Admin: 04/06/19 09:10 Dose: 5 mg Metoprolol Succinate (Toprol Xl -) 25 mg PO DAILY [facility] Last Admin: 04/06/19 09:10 Dose: 25 mg Mirtazapine (Remeron -) 15 mg PO [facility] Last Admin: 04/05/19 21:23 Dose: 15 mg Pantoprazole Sodium (Protonix -) 40 mg PO DAILY [facility] Last Admin: 04/06/19 09:10 Dose: 40 mg - Objective Vital Signs: Vital Signs Temperature 97.9 F 04/06/19 14:00 Pulse Rate 78 04/06/19 14:00 Respiratory Rate 22 H 04/06/19 14:00 Blood Pressure 96/57 L 04/06/19 14:00 O2 Sat by Pulse Oximetry (%) 95 04/05/19 20:06 Constitutional: Yes: Calm Eyes: Yes: Conjunctiva Clear HENT: Yes: Atraumatic Cardiovascular: Yes: S1, S2 Respiratory: Yes: On Nasal O2, Rhonchi Gastrointestinal: Yes: Normal Bowel Sounds, Soft Genitourinary: Yes: WNL Musculoskeletal: Yes: WNL Edema: No Neurological: Yes: Confusion Labs: CBC, BMP 04/03/19 06:33 04/06/19 06:03 Problem List - Problems (1) LILLIE (acute kidney injury) Code(s): N17.9 - ACUTE KIDNEY FAILURE, UNSPECIFIED (2) Hypernatremia Code(s): E87.0 - HYPEROSMOLALITY AND HYPERNATREMIA Assessment/Plan Current Medications Generic Name Dose Route Start Last Admin Trade Name Freq PRN Reason Stop Dose Admin Amiodarone HCl 100 mg 03/28/19 10:00 04/06/19 09:09 Cordarone - PO 100 mg DAILY [facility] Administration Apixaban 2.5 mg 03/27/19 22:00 04/06/19 09:10 Eliquis - PO 2.5 mg BID [facility] Administration Atorvastatin Calcium 10 mg 03/27/19 22:00 04/05/19 21:23 Lipitor - PO 10 mg HS [facility] Administration Donepezil HCl 10 mg 03/28/19 10:00 04/06/19 09:10 Aricept - PO 10 mg DAILY [facility] Administration Fluoxetine HCl 20 mg 03/28/19 13:00 04/06/19 09:10 Prozac - PO 20 mg DAILY [facility] Administration Furosemide 40 mg 04/06/19 11:30 04/06/19 12:25 Lasix - PO 40 mg DAILY [facility] Administration Ceftriaxone Sodium 2 gm/ 100 mls @ 200 mls/hr 03/30/19 18:00 04/06/19 06:43 Dextrose IVPB 200 mls/hr Q12H [facility] Administration Protocol Ampicillin Sodium 2 gm/ Sodium 100 mls @ 200 mls/hr 03/31/19 15:00 04/06/19 09:09 Chloride IVPB 200 mls/hr Q6H-IV [facility] Administration Protocol Potassium Chloride 10 meq/ 1,005 mls @ 50 mls/hr 04/05/19 20:22 04/05/19 20: 54 Dextrose IVPB 50 mls/hr Q20H [facility] Administration Lactobacillus Acidophilus 1 tab 03/31/19 12:00 04/06/19 09:10 Bacid - PO 1 tab DAILY [facility] Administration Magnesium Sulfate 2 gm 04/06/19 15:41 Magnesium Sulfate IVPB 04/06/19 15:42 ONCE ONE Memantine 5 mg 03/27/19 22:00 04/06/19 09:10 Namenda - PO 5 mg BID [facility] Administration Metoprolol Succinate 25 mg 03/28/19 10:00 04/06/19 09:10 Toprol Xl - PO 25 mg DAILY [facility] Administration Mirtazapine 15 mg 03/28/19 22:00 04/05/19 21:23 Remeron - PO 15 mg HS [facility] Administration Pantoprazole Sodium 40 mg 03/28/19 13:00 04/06/19 09:10 Protonix - PO 40 mg DAILY [facility] Administration Potassium Chloride 40 meq 04/06/19 22:00 Potassium Chloride Oral Liquid PO BID [facility] Laboratory Tests 04/06/19 06:03 Potassium 3.3 L Creatinine 1.4 H Magnesium 1.4 L Impression 1. LILLIE 2. chf 3. mitral regurg 4. dementia 5. a-fib 6. hld 7. solitary right kidney 8. UTI 9. right side hydro 10. bacteremia 11. hypernatremia 12. hypokalemia Plan - d/c fluids - resume diuretics - replace potassium - replace mag - cxr shows congestion - will need to discuss GOC including feeding - pt is doing poorly
--- NOTE | 2019-04-06 15:57 | PN ---
Progress Note, Physician - Current Medication List Current Medications: Active Medications Amiodarone HCl (Cordarone -) 100 mg PO DAILY [facility] Last Admin: 04/06/19 09:09 Dose: 100 mg Apixaban (Eliquis -) 2.5 mg PO BID [facility] Last Admin: 04/06/19 09:10 Dose: 2.5 mg Atorvastatin Calcium (Lipitor -) 10 mg PO HS [facility] Last Admin: 04/05/19 21:23 Dose: 10 mg Donepezil HCl (Aricept -) 10 mg PO DAILY [facility] Last Admin: 04/06/19 09:10 Dose: 10 mg Fluoxetine HCl (Prozac -) 20 mg PO DAILY [facility] Last Admin: 04/06/19 09:10 Dose: 20 mg Furosemide (Lasix -) 40 mg PO DAILY [facility] Last Admin: 04/06/19 12:25 Dose: 40 mg Ceftriaxone Sodium 2 gm/ (Dextrose) 100 mls @ 200 mls/hr IVPB Q12H [facility]; Protocol Last Admin: 04/06/19 06:43 Dose: 200 mls/hr Ampicillin Sodium 2 gm/ Sodium (Chloride) 100 mls @ 200 mls/hr IVPB Q6H-IV [facility] ; Protocol Last Admin: 04/06/19 09:09 Dose: 200 mls/hr Lactobacillus Acidophilus (Bacid -) 1 tab PO DAILY [facility] Last Admin: 04/06/19 09:10 Dose: 1 tab Memantine (Namenda -) 5 mg PO BID [facility] Last Admin: 04/06/19 09:10 Dose: 5 mg Metoprolol Succinate (Toprol Xl -) 25 mg PO DAILY [facility] Last Admin: 04/06/19 09:10 Dose: 25 mg Mirtazapine (Remeron -) 15 mg PO HS [facility] Last Admin: 04/05/19 21:23 Dose: 15 mg Pantoprazole Sodium (Protonix -) 40 mg PO DAILY [facility] Last Admin: 04/06/19 09:10 Dose: 40 mg Potassium Chloride (Potassium Chloride Oral Liquid) 40 meq PO BID [facility] - Objective Vital Signs: Vital Signs Temperature 97.9 F 04/06/19 14:00 Pulse Rate 78 04/06/19 14:00 Respiratory Rate 22 H 04/06/19 14:00 Blood Pressure 96/57 L 04/06/19 14:00 O2 Sat by Pulse Oximetry (%) 95 04/05/19 20:06 Constitutional: Yes: No Distress HENT: Yes: Atraumatic Neck: Yes: Supple Cardiovascular: Yes: Regular Rate and Rhythm Respiratory: Yes: CTA Bilaterally Gastrointestinal: Yes: Normal Bowel Sounds Extremities: Yes: WNL Neurological: Yes: Alert, Oriented Labs: CBC, BMP 04/03/19 06:33 04/06/19 06:03 Problem List - Problems (1) LILLIE (acute kidney injury) Assessment/Plan: cr improving on ivf per renal...will cut down to 50 cc per hour was hypoxic on RA now on 2l NC Code(s): N17.9 - ACUTE KIDNEY FAILURE, UNSPECIFIED (2) Elevated troponin Assessment/Plan: monitor demand ischemia? cardio consult Code(s): R74.8 - ABNORMAL LEVELS OF OTHER SERUM ENZYMES (3) CHF (congestive heart failure) Code(s): I50.9 - HEART FAILURE, UNSPECIFIED (4) Dementia Code(s): F03.90 - UNSPECIFIED DEMENTIA WITHOUT BEHAVIORAL DISTURBANCE (5) GERD (gastroesophageal reflux disease) Code(s): K21.9 - GASTRO-ESOPHAGEAL REFLUX DISEASE WITHOUT ESOPHAGITIS (6) Atrial fibrillation Assessment/Plan: on meds Code(s): I48.91 - UNSPECIFIED ATRIAL FIBRILLATION Qualifiers: Atrial fibrillation type: paroxysmal Qualified Code(s): I48.0 - Paroxysmal atrial fibrillation (7) HTN (hypertension) Assessment/Plan: on meds monitor Code(s): I10 - ESSENTIAL (PRIMARY) HYPERTENSION (8) Positive blood culture Code(s): R78.81 - BACTEREMIA
[2019-04-06] MEDS: MIRTAZAPINE 15 MG TABLET (FP) PO SCH (21:29)
[2019-04-06] MEDS: ATORVASTATIN CA 10 MG TABLET (FP) PO SCH (21:29)
[2019-04-07] MEDS: AMPICILLIN - 2 GM in SODIUM CHLORIDE 100 ML IVPB SCH ×4 (02:18→21:30)
[2019-04-07] MEDS ORDERED: DEXTROSE 5%-WATER 100 ML IVPB ONE ×2 (06:05→16:24)
[2019-04-07] MEDS: CEFTRIAXONE 2 GM in DEXTROSE 5%-WATER 100 ML IVPB SCH ×2 (06:10→17:36)
[2019-04-07 07:41] LABS: BASO % 0.3 % (0-2.0); EOS % 1.4 % (0-4.5); HEMATOCRIT 29.9 % (32.4-45.2); HEMOGLOBIN 9.7 GM/dL (10.7-15.3); LYMPH % 10.4 % (8-40); MCH 29.9 pg (25.7-33.7); MCHC 32.6 g/dl (32.0-36.0); MEAN CELL VOLUME 91.7 fl (80-96); MEAN PLT VOLUME 11.1 fl (7.5-11.1); MONO % 9.1 % (3.8-10.2); NEUT % 78.8 % (42.8-82.8); PLATELET COUNT 177 K/MM3 (134-434); RBC 3.26 M/mm3 (3.60-5.2); RDW 17.9 % (11.6-15.6); WHITE BLOOD COUNT 8.8 K/mm3 (4.0-10.0)
[2019-04-07 07:59] LABS: ALBUMIN 1.8 g/dl (3.4-5.0); BILIRUBIN,TOTAL 0.2 mg/dL (0.2-1); CALCIUM 7.6 mg/dL (8.5-10.1); CREATININE 1.5 mg/dL (0.55-1.3); POTASSIUM 3.5 mmol/L (3.5-5.1); TOT PROT 5.7 g/dl (6.4-8.2)
[2019-04-07] MEDS: metoPROLOL SUCCINATE 25 MG TAB.SR.24H (FP) PO SCH (09:25)
[2019-04-07] MEDS: FLUoxetine HCL 20 MG CAPSULE (FP) PO SCH (09:25)
[2019-04-07] MEDS: AMIODARONE HCL 200 MG TABLET (FP) PO SCH (09:25)
[2019-04-07] MEDS: FUROSEMIDE 40 MG TABLET (FP) PO SCH (09:25)
[2019-04-07] MEDS: MEMANTINE HCL 5 MG TABLET (UD) PO SCH ×2 (09:25→21:30)
[2019-04-07] MEDS: DONEPEZIL HCL 10 MG TABLET (FP) PO SCH (09:26)
[2019-04-07] MEDS: APIXABAN 2.5 MG TABLET PO SCH ×2 (09:26→21:30)
[2019-04-07] MEDS: POTASSIUM CHLORIDE ORAL LIQUID 20 MEQ/15 ML PO SCH ×2 (09:26→21:30)
[2019-04-07] MEDS: PANTOPRAZOLE 40 MG TABLET (FP) PO SCH (09:26)
[2019-04-07] MEDS: LACTOBACILLUS ACIDOPHILUS 1 TABLET PO SCH (09:26)
--- NOTE | 2019-04-07 09:59 | PN ---
Progress Note, Physician Chief Complaint: poor appetite Tearful Denies CP or SOB TELE: NSR, ST - Current Medication List Current Medications: Active Medications Amiodarone HCl (Cordarone -) 100 mg PO DAILY [facility] Last Admin: 04/07/19 09:25 Dose: 100 mg Apixaban (Eliquis -) 2.5 mg PO BID [facility] Last Admin: 04/07/19 09:26 Dose: 2.5 mg Atorvastatin Calcium (Lipitor -) 10 mg PO HS [facility] Last Admin: 04/06/19 21:29 Dose: 10 mg Donepezil HCl (Aricept -) 10 mg PO DAILY [facility] Last Admin: 04/07/19 09:26 Dose: 10 mg Fluoxetine HCl (Prozac -) 20 mg PO DAILY [facility] Last Admin: 04/07/19 09:25 Dose: 20 mg Furosemide (Lasix -) 40 mg PO DAILY [facility] Last Admin: 04/07/19 09:25 Dose: 40 mg Ceftriaxone Sodium 2 gm/ (Dextrose) 100 mls @ 200 mls/hr IVPB Q12H [facility]; Protocol Last Admin: 04/07/19 06:10 Dose: 200 mls/hr Ampicillin Sodium 2 gm/ Sodium (Chloride) 100 mls @ 200 mls/hr IVPB Q6H-IV [facility] ; Protocol Last Admin: 04/07/19 09:24 Dose: 200 mls/hr Lactobacillus Acidophilus (Bacid -) 1 tab PO DAILY [facility] Last Admin: 04/07/19 09:26 Dose: 1 tab Memantine (Namenda -) 5 mg PO BID [facility] Last Admin: 04/07/19 09:25 Dose: 5 mg Metoprolol Succinate (Toprol Xl -) 25 mg PO DAILY [facility] Last Admin: 04/07/19 09:25 Dose: 25 mg Mirtazapine (Remeron -) 15 mg PO HS [facility] Last Admin: 04/06/19 21:29 Dose: 15 mg Pantoprazole Sodium (Protonix -) 40 mg PO DAILY [facility] Last Admin: 04/07/19 09:26 Dose: 40 mg Potassium Chloride (Potassium Chloride Oral Liquid) 40 meq PO BID [facility] Last Admin: 04/07/19 09:26 Dose: 40 meq - Objective Vital Signs: Vital Signs Temperature 98.3 F 04/07/19 01:00 Pulse Rate 78 04/07/19 06:00 Respiratory Rate 20 04/07/19 06:00 Blood Pressure 100/64 04/07/19 06:00 O2 Sat by Pulse Oximetry (%) 92 L 04/06/19 20:24 Constitutional: Yes: Anxious, Pallor HENT: Yes: Normocephalic Cardiovascular: Yes: Regular Rate and Rhythm Respiratory: Yes: Other (decreased basilar breath sounds) Gastrointestinal: Yes: Soft (NT) Edema: No Peripheral Pulses WNL: Yes Neurological: Yes: Alert, Oriented ...Motor Strength: WNL Labs: CBC, BMP 04/07/19 06:10 04/07/19 06:10 Laboratory Tests 04/07/19 04/07/19 06:10 06:10 WBC 8.8 Hgb 9.7 L Plt Count 177 D Sodium 143 Potassium 3.5 BUN 22.0 H Creatinine 1.5 H Magnesium 2.0 Microbiology 03/28/19 17:00 Blood - Peripheral Venous Blood Culture - Final NO GROWTH AFTER 5 DAYS INCUBATION 03/28/19 17:00 Blood - Peripheral Venous Blood Culture - Final NO GROWTH AFTER 5 DAYS INCUBATION - ....Imaging EKG: Image Reviewed Assessment/Plan Data: CXR: clear lungs/pleura EKG sinus, prolonged QTc 515 ms, stable compared to prior echo 03/2019 mild conc LVH, pseudonormalization, RV nl, PPM in R heart, RV function nl, LA severely dilated, mod MAC, significant prolapse vs partial flail of post mitral leaflet, severe eccentric anteriorly directed MR, mild to mod TR, RVSP elevated 40-50 mmHg, mild AR, no obvoius intracardiac vegetations 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 faecalis bacteremia, UTI - ID input appreciated, likely urinary source - no obvious vegetation on echo. repeat bld cx ngtd. no signs of cardiogenic shock, CVA, acute HF - case has been disc'd by our team with dr art who feels that conservative mgmt with 6 wks of abx is preferable given she is hi risk for complications of VITA (including if done [place] [facility] [place]) and unrevealing VITA will not definitively exclude risk of SBE given in light of indwelling PM leads - cont 6 wks abx course - s/p PICC line dehydration, hypernatremia, LILLIE: - weakness, dehydration improved with IVF - cautious use of IVF given severe MR, recent admissions for CHF - resumed PO Lasix yesterday as CXR started showing some congestive changes and weight up a bit. 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 sec to sepsis -monitor trends and stools -cont AC for now -Repeat CBC showed stable H/H VTach: -NSVT on tele during prior admissions -K/Mag per usual aggressive targets (08/09) -low dose BB as soft bp's allow hld: -cont home statin Progressive Cognitive decline: -Followed by Neuro as outpt
--- NOTE | 2019-04-07 12:40 | PN ---
Progress Note, Physician History of Present Illness: Pt seen and examined at bedside. SHe is awake and appears comfortable. She says that her breathing is improved. She did not eat anything today. - Current Medication List Current Medications: Active Medications Amiodarone HCl (Cordarone -) 100 mg PO DAILY [facility] Last Admin: 04/07/19 09:25 Dose: 100 mg Apixaban (Eliquis -) 2.5 mg PO BID [facility] Last Admin: 04/07/19 09:26 Dose: 2.5 mg Atorvastatin Calcium (Lipitor -) 10 mg PO HS [facility] Last Admin: 04/06/19 21:29 Dose: 10 mg Donepezil HCl (Aricept -) 10 mg PO DAILY [facility] Last Admin: 04/07/19 09:26 Dose: 10 mg Fluoxetine HCl (Prozac -) 20 mg PO DAILY [facility] Last Admin: 04/07/19 09:25 Dose: 20 mg Furosemide (Lasix -) 40 mg PO DAILY [facility] Last Admin: 04/07/19 09:25 Dose: 40 mg Ceftriaxone Sodium 2 gm/ (Dextrose) 100 mls @ 200 mls/hr IVPB Q12H [facility]; Protocol Last Admin: 04/07/19 06:10 Dose: 200 mls/hr Ampicillin Sodium 2 gm/ Sodium (Chloride) 100 mls @ 200 mls/hr IVPB Q6H-IV [facility] ; Protocol Last Admin: 04/07/19 09:24 Dose: 200 mls/hr Lactobacillus Acidophilus (Bacid -) 1 tab PO DAILY [facility] Last Admin: 04/07/19 09:26 Dose: 1 tab Memantine (Namenda -) 5 mg PO BID [facility] Last Admin: 04/07/19 09:25 Dose: 5 mg Metoprolol Succinate (Toprol Xl -) 25 mg PO DAILY [facility] Last Admin: 04/07/19 09:25 Dose: 25 mg Mirtazapine (Remeron -) 15 mg PO HS [facility] Last Admin: 04/06/19 21:29 Dose: 15 mg Pantoprazole Sodium (Protonix -) 40 mg PO DAILY [facility] Last Admin: 04/07/19 09:26 Dose: 40 mg Potassium Chloride (Potassium Chloride Oral Liquid) 40 meq PO BID [facility] Last Admin: 04/07/19 09:26 Dose: 40 meq - Objective Vital Signs: Vital Signs Temperature 98.2 F 04/07/19 10:00 Pulse Rate 81 04/07/19 10:00 Respiratory Rate 21 H 04/07/19 10:00 Blood Pressure 113/67 04/07/19 10:00 O2 Sat by Pulse Oximetry (%) 100 04/07/19 09:00 Constitutional: Yes: Calm Eyes: Yes: Conjunctiva Clear HENT: Yes: Atraumatic Neck: Yes: Supple Cardiovascular: Yes: S1, S2 Respiratory: Yes: On Nasal O2 Gastrointestinal: Yes: Normal Bowel Sounds, Soft Genitourinary: Yes: WNL Musculoskeletal: Yes: WNL Edema: No Neurological: Yes: Confusion Labs: CBC, BMP 04/07/19 06:10 04/07/19 06:10 Problem List - Problems (1) LILLIE (acute kidney injury) Code(s): N17.9 - ACUTE KIDNEY FAILURE, UNSPECIFIED (2) Hypernatremia Code(s): E87.0 - HYPEROSMOLALITY AND HYPERNATREMIA Assessment/Plan Current Medications Generic Name Dose Route Start Last Admin Trade Name Freq PRN Reason Stop Dose Admin Amiodarone HCl 100 mg 03/28/19 10:00 04/07/19 09:25 Cordarone - PO 100 mg DAILY [facility] Administration Apixaban 2.5 mg 03/27/19 22:00 04/07/19 09:26 Eliquis - PO 2.5 mg BID [facility] Administration Atorvastatin Calcium 10 mg 03/27/19 22:00 04/06/19 21:29 Lipitor - PO 10 mg HS [facility] Administration Donepezil HCl 10 mg 03/28/19 10:00 04/07/19 09:26 Aricept - PO 10 mg DAILY [facility] Administration Fluoxetine HCl 20 mg 03/28/19 13:00 04/07/19 09:25 Prozac - PO 20 mg DAILY [facility] Administration Furosemide 40 mg 04/06/19 11:30 04/07/19 09:25 Lasix - PO 40 mg DAILY [facility] Administration Ceftriaxone Sodium 2 gm/ 100 mls @ 200 mls/hr 03/30/19 18:00 04/07/19 06:10 Dextrose IVPB 200 mls/hr Q12H [facility] Administration Protocol Ampicillin Sodium 2 gm/ Sodium 100 mls @ 200 mls/hr 03/31/19 15:00 04/07/19 09:24 Chloride IVPB 200 mls/hr Q6H-IV [facility] Administration Protocol Lactobacillus Acidophilus 1 tab 03/31/19 12:00 04/07/19 09:26 Bacid - PO 1 tab DAILY [facility] Administration Memantine 5 mg 03/27/19 22:00 04/07/19 09:25 Namenda - PO 5 mg BID [facility] Administration Metoprolol Succinate 25 mg 03/28/19 10:00 04/07/19 09:25 Toprol Xl - PO 25 mg DAILY [facility] Administration Mirtazapine 15 mg 03/28/19 22:00 04/06/19 21:29 Remeron - PO 15 mg HS [facility] Administration Pantoprazole Sodium 40 mg 03/28/19 13:00 04/07/19 09:26 Protonix - PO 40 mg DAILY [facility] Administration Potassium Chloride 40 meq 04/06/19 22:00 04/07/19 09:26 Potassium Chloride Oral Liquid PO 40 meq BID [facility] Administration Laboratory Tests 04/07/19 06:10 Potassium 3.5 Creatinine 1.5 H Magnesium 2.0 Impression 1. LILLIE 2. chf 3. mitral regurg 4. dementia 5. a-fib 6. hld 7. solitary right kidney 8. UTI 9. right side hydro 10. bacteremia 11. hypernatremia 12. hypokalemia Plan - cont lasix - monitor volume status - pt still with poor po intake - mag is improved - will need to discuss GOC including feeding - will follow PRN - monitor lytes
--- NOTE | 2019-04-07 12:57 | PN ---
Progress Note, Physician History of Present Illness: poor appetite - Current Medication List Current Medications: Active Medications Amiodarone HCl (Cordarone -) 100 mg PO DAILY [facility] Last Admin: 04/07/19 09:25 Dose: 100 mg Apixaban (Eliquis -) 2.5 mg PO BID [facility] Last Admin: 04/07/19 09:26 Dose: 2.5 mg Atorvastatin Calcium (Lipitor -) 10 mg PO HS [facility] Last Admin: 04/06/19 21:29 Dose: 10 mg Donepezil HCl (Aricept -) 10 mg PO DAILY [facility] Last Admin: 04/07/19 09:26 Dose: 10 mg Fluoxetine HCl (Prozac -) 20 mg PO DAILY [facility] Last Admin: 04/07/19 09:25 Dose: 20 mg Furosemide (Lasix -) 40 mg PO DAILY [facility] Last Admin: 04/07/19 09:25 Dose: 40 mg Ceftriaxone Sodium 2 gm/ (Dextrose) 100 mls @ 200 mls/hr IVPB Q12H [facility]; Protocol Last Admin: 04/07/19 06:10 Dose: 200 mls/hr Ampicillin Sodium 2 gm/ Sodium (Chloride) 100 mls @ 200 mls/hr IVPB Q6H-IV [facility] ; Protocol Last Admin: 04/07/19 09:24 Dose: 200 mls/hr Lactobacillus Acidophilus (Bacid -) 1 tab PO DAILY [facility] Last Admin: 04/07/19 09:26 Dose: 1 tab Memantine (Namenda -) 5 mg PO BID [facility] Last Admin: 04/07/19 09:25 Dose: 5 mg Metoprolol Succinate (Toprol Xl -) 25 mg PO DAILY [facility] Last Admin: 04/07/19 09:25 Dose: 25 mg Mirtazapine (Remeron -) 15 mg PO HS [facility] Last Admin: 04/06/19 21:29 Dose: 15 mg Pantoprazole Sodium (Protonix -) 40 mg PO DAILY [facility] Last Admin: 04/07/19 09:26 Dose: 40 mg Potassium Chloride (Potassium Chloride Oral Liquid) 40 meq PO BID [facility] Last Admin: 04/07/19 09:26 Dose: 40 meq - Objective Vital Signs: Vital Signs Temperature 98.2 F 04/07/19 10:00 Pulse Rate 81 04/07/19 10:00 Respiratory Rate 21 H 04/07/19 10:00 Blood Pressure 113/67 04/07/19 10:00 O2 Sat by Pulse Oximetry (%) 100 04/07/19 09:00 Constitutional: Yes: No Distress HENT: Yes: Atraumatic Neck: Yes: Supple Cardiovascular: Yes: Regular Rate and Rhythm Respiratory: Yes: CTA Bilaterally Gastrointestinal: Yes: Normal Bowel Sounds Extremities: Yes: WNL Neurological: Yes: Alert Labs: CBC, BMP 04/07/19 06:10 04/07/19 06:10 Problem List - Problems (1) LILLIE (acute kidney injury) Assessment/Plan: cr improving on ivf per renal...will cut down to 50 cc per hour was hypoxic on RA now on 2l NC Code(s): N17.9 - ACUTE KIDNEY FAILURE, UNSPECIFIED (2) Elevated troponin Assessment/Plan: monitor demand ischemia? cardio consult Code(s): R74.8 - ABNORMAL LEVELS OF OTHER SERUM ENZYMES (3) CHF (congestive heart failure) Code(s): I50.9 - HEART FAILURE, UNSPECIFIED (4) Dementia Code(s): F03.90 - UNSPECIFIED DEMENTIA WITHOUT BEHAVIORAL DISTURBANCE (5) GERD (gastroesophageal reflux disease) Code(s): K21.9 - GASTRO-ESOPHAGEAL REFLUX DISEASE WITHOUT ESOPHAGITIS (6) Atrial fibrillation Assessment/Plan: on meds Code(s): I48.91 - UNSPECIFIED ATRIAL FIBRILLATION Qualifiers: Atrial fibrillation type: paroxysmal Qualified Code(s): I48.0 - Paroxysmal atrial fibrillation (7) HTN (hypertension) Assessment/Plan: on meds monitor Code(s): I10 - ESSENTIAL (PRIMARY) HYPERTENSION (8) Positive blood culture Code(s): R78.81 - BACTEREMIA Assessment/Plan spoke with daughter candace concerns about poor appetite discussed peg placement , she wants gi evjose gi to call her after seeing patient will start megace renal dose
--- NOTE | 2019-04-07 15:15 | PN ---
Progress Note (short form) - Note Progress Note: patient is eating poorly-clear ensure only fluids stopped, now on lasix daily Vital Signs Period Temp Pulse Resp BP Sys/Rice Pulse Ox Last 24 Hr 97.3 F-98.4 F 76-81 20-22 100-120/55-67 92-100 cor-rrr murmur unchanged lungs clear abd soft,nt ext no edema CBC, BMP 04/07/19 06:10 04/07/19 06:10 Microbiology 03/28/19 17:00 Blood - Peripheral Venous Blood Culture - Final NO GROWTH AFTER 5 DAYS INCUBATION 03/28/19 17:00 Blood - Peripheral Venous Blood Culture - Final NO GROWTH AFTER 5 DAYS INCUBATION 03/27/19 15:55 Blood - Peripheral Venous Blood Culture - Final Enterococcus Faecalis 03/27/19 15:55 Blood - Peripheral Venous Blood Culture - Final Enterococcus Faecalis 03/27/19 16:34 Urine - Urine Clean Catch Urine Culture - Final Contaminated: Please Repeat echo+valvular disease, no obvious vegetations noted a/p enterococcal bacteremia-cannot r/o endocarditis with vavluvlar heart disease and PPM no plans for VITA (high risk), plan 6 weeks amp/rocephin repeat blood culture negative suspect urinary source with pyuria on admission valvular heart disease PPM lillie/ckd- now on lasix continue ampicillin/ceftriaxone day #11 antibiotics- on probiotics as well overall doing poorly GOC needs to be addressed Problem List - Problems (1) Positive blood culture Code(s): R78.81 - BACTEREMIA (2) LILLIE (acute kidney injury) Code(s): N17.9 - ACUTE KIDNEY FAILURE, UNSPECIFIED (3) Mitral valve regurgitation Code(s): I34.0 - NONRHEUMATIC MITRAL (VALVE) INSUFFICIENCY (4) Pacemaker Code(s): Z95.0 - PRESENCE OF CARDIAC PACEMAKER
[2019-04-07] MEDS ORDERED: PT OWN MED DRAWER 7, Y5N ONE (16:23)
[2019-04-07] MEDS: MIRTAZAPINE 15 MG TABLET (FP) PO SCH (21:30)
[2019-04-07] MEDS: ATORVASTATIN CA 10 MG TABLET (FP) PO SCH (21:30)
[2019-04-08] MEDS: AMPICILLIN - 2 GM in SODIUM CHLORIDE 100 ML IVPB SCH ×4 (02:49→21:38)
[2019-04-08] MEDS ORDERED: DEXTROSE 5%-WATER 100 ML IVPB ONE ×2 (05:57→16:51)
[2019-04-08] MEDS: CEFTRIAXONE 2 GM in DEXTROSE 5%-WATER 100 ML IVPB SCH ×2 (06:09→17:21)
--- NOTE | 2019-04-08 08:16 | PN ---
Progress Note, Physician Chief Complaint: weakness History of Present Illness: remains extremely weak. denies sob, orthopnea no cp, palpit no cigs - Current Medication List Current Medications: Active Medications Amiodarone HCl (Cordarone -) 100 mg PO DAILY [facility] Last Admin: 04/07/19 09:25 Dose: 100 mg Apixaban (Eliquis -) 2.5 mg PO BID [facility] Last Admin: 04/07/19 21:30 Dose: 2.5 mg Atorvastatin Calcium (Lipitor -) 10 mg PO HS [facility] Last Admin: 04/07/19 21:30 Dose: 10 mg Donepezil HCl (Aricept -) 10 mg PO DAILY [facility] Last Admin: 04/07/19 09:26 Dose: 10 mg Fluoxetine HCl (Prozac -) 20 mg PO DAILY [facility] Last Admin: 04/07/19 09:25 Dose: 20 mg Furosemide (Lasix -) 40 mg PO DAILY [facility] Last Admin: 04/07/19 09:25 Dose: 40 mg Ceftriaxone Sodium 2 gm/ (Dextrose) 100 mls @ 200 mls/hr IVPB Q12H [facility]; Protocol Last Admin: 04/08/19 06:09 Dose: 200 mls/hr Ampicillin Sodium 2 gm/ Sodium (Chloride) 100 mls @ 200 mls/hr IVPB Q6H-IV [facility] ; Protocol Last Admin: 04/08/19 02:49 Dose: 200 mls/hr Lactobacillus Acidophilus (Bacid -) 1 tab PO DAILY [facility] Last Admin: 04/07/19 09:26 Dose: 1 tab Memantine (Namenda -) 5 mg PO BID [facility] Last Admin: 04/07/19 21:30 Dose: 5 mg Metoprolol Succinate (Toprol Xl -) 25 mg PO DAILY [facility] Last Admin: 04/07/19 09:25 Dose: 25 mg Mirtazapine (Remeron -) 15 mg PO HS [facility] Last Admin: 04/07/19 21:30 Dose: 15 mg Pantoprazole Sodium (Protonix -) 40 mg PO DAILY [facility] Last Admin: 04/07/19 09:26 Dose: 40 mg Potassium Chloride (Potassium Chloride Oral Liquid) 40 meq PO BID [facility] Last Admin: 04/07/19 21:30 Dose: 40 meq - Objective Vital Signs: Vital Signs Temperature 97.4 F L 04/08/19 02:00 Pulse Rate 80 04/08/19 02:00 Respiratory Rate 20 04/08/19 02:00 Blood Pressure 105/65 04/08/19 02:00 O2 Sat by Pulse Oximetry (%) 99 04/07/19 21:00 Constitutional: Yes: No Distress, Calm Eyes: No: Sclera Icterus HENT: No: Nasal Congestion Cardiovascular: Yes: Regular Rate and Rhythm, JVD, Murmur (loud MR murmur apex to LLSB), S1, S2, Other (PMI non diplaced). No: Gallop Respiratory: Yes: CTA Bilaterally. No: Accessory Muscle Use, Rales, Wheezes Gastrointestinal: Yes: Normal Bowel Sounds, Soft. No: Tenderness Musculoskeletal: Yes: Other (No kyphosis) Extremities: No: Cold, Cyanosis Edema: No Integumentary: No: Jaundice Neurological: Yes: Alert, Oriented (x3) Psychiatric: No: Agitated Labs: CBC, BMP 04/07/19 06:10 04/07/19 06:10 Assessment/Plan CXR: clear lungs/pleura EKG sinus, prolonged QTc 515 ms, stable compared to prior echo 03/2019 mild conc LVH, pseudonormalization, RV nl, PPM in R heart, RV function nl, LA severely dilated, mod MAC, significant prolapse vs partial flail of post mitral leaflet, severe eccentric anteriorly directed MR, mild to mod TR, RVSP elevated 40-50 mmHg, mild AR, no obvoius intracardiac vegetations seen tele: NSR, PVCs IMP/Plan: sepsis, E. faecalis bacteremia, UTI - ID input appreciated, likely urinary source - no obvious vegetation on echo. repeat bld cx ngtd. no signs of cardiogenic shock, CVA, acute HF - case has been disc'd by our team with dr art who feels that conservative mgmt with 6 wks of abx is preferable given she is hi risk for complications of [place] (including [place] [facility] [place] and unrevealing VITA will not definitively exclude risk of SBE given in light of indwelling PM leads - cont 6 wks abx course - s/p PICC line dehydration, hypernatremia, LILLIE: - baseline creat 1.1-1.3 - weakness, dehydration improved with IVF-->fluids stopped despite creat remains above baseline, given evidence of volume-excess - renal following elevated trop: - indeterminate range, flat trend, no ischemic changes - less likely ACS - likely demand in setting of sepsis chronic diastolic chf, severe MR: - PO lasix resumed 04/06 for evidence of volume s/p IV hydration here, wt increased 118 to 129 lbs here - + JVD, no sob. - note: prior 03/28 admit with acute CHF notes reviewed: she had previously required lasix 80 IV bid for adequate diuresis here, had been sent out on lasix 80 bid in [place] (incorrectly listed as 40 bid in admit notes then)--sent out with rec for 80 bid last time (again notes incorrectly list 40 bid). currently receiving lasix 40 qd, has poor appetite/po intake, considering PEG tube for nutrition support. change lasix to 80 qd for now, observe labs and phys exam. 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
--- NOTE | 2019-04-08 09:45 | CON.GI ---
Consult Consult Specialty:: covering for Dr Strong - History of Present Illness History of Present Illness: 83 y/o F with multiple medical problems including CHF with severe MR,V_tach, elevated troponin PAF is being treated for S feacalis bacteremia possibly secondary to UTI.. She was to undergo Endoscopic ultrasound was deferred because of patient being high risk to IV sedation. She was seen by Barry Drew and was noted to have poor po intake. She has history of dehydration. 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 History of Recent Travel: No Home Medications - Allergies Allergies/Adverse Reactions: Allergies Allergy/AdvReac Type Severity Reaction Status Date / Time No Known Allergies Allergy Verified 03/12/19 13:59 - Home Medications Home Medications: Ambulatory Orders Apixaban [Eliquis] 2.5 mg PO BID 03/07/19 Atorvastatin Ca [Lipitor] 10 mg PO HS 03/07/19 Cyanocobalamin (Vitamin B-12) [Vitamin B-12] 2,000 mcg PO DAILY 03/07/19 Docusate Sodium [Colace] 100 mg PO TID 03/07/19 Donepezil HCl [Aricept] 10 mg PO DAILY 03/07/19 Furosemide [Lasix] 40 mg PO BID 03/07/19 Lorazepam [Ativan] 0.5 mg PO PRN PRN 03/07/19 Memantine HCl [Namenda -] 5 mg PO BID 03/07/19 Metoprolol Succinate [Toprol Xl] 25 mg PO DAILY 03/07/19 Mirtazapine [Remeron -] 15 mg PO HS 03/07/19 Pantoprazole Sodium [Protonix] 40 mg PO DAILY 03/07/19 Potassium Chloride [Klor-Con] 40 meq PO DAILY 03/07/19 Amiodarone HCl [Cordarone -] 100 mg PO DAILY tablet 03/15/19 Ampicillin - 2 gm IVPB Q6H-IV #30 vial 04/03/19 Ceftriaxone [Rocephin -] 2 gm IVPB Q12H #30 vial 04/03/19 Physical Exam-GI Vital Signs: Vital Signs Temperature 97.4 F L 04/08/19 02:00 Pulse Rate 80 04/08/19 02:00 Respiratory Rate 20 04/08/19 02:00 Blood Pressure 105/65 04/08/19 02:00 O2 Sat by Pulse Oximetry (%) 99 04/07/19 21:00 Constitutional: Yes: Well Nourished Eyes: Yes: Conjunctiva Clear HENT: Yes: Atraumatic Neck: Yes: Supple Cardiovascular: Yes: Regular Rate and Rhythm Respiratory: Yes: Rhonchi ...Palpate: Yes: Soft. No: Firm/Rigid, Guarding, Hepatomegaly, Mass, Pulsatile Mass, Splenomegaly Labs: CBC, BMP 04/07/19 06:10 04/07/19 06:10 Problem List - Problems (1) Failure to thrive Assessment/Plan: Because of the presence multiple co morbidities and she is a high risk of endoscopic procedure, gastrostomy placement by Interventional Radiology will be a better option. discussed with her , unclear if they want the PEG Code(s): [id number] -
[2019-04-08] MEDS ORDERED: PT OWN MED DRAWER 7, Y5N ONE ×2 (10:02→14:36)
[2019-04-08] MEDS: POTASSIUM CHLORIDE ORAL LIQUID 20 MEQ/15 ML PO SCH ×2 (10:26→21:39)
[2019-04-08] MEDS: AMIODARONE HCL 200 MG TABLET (FP) PO SCH (10:26)
[2019-04-08] MEDS: PANTOPRAZOLE 40 MG TABLET (FP) PO SCH (10:27)
[2019-04-08] MEDS: FLUoxetine HCL 20 MG CAPSULE (FP) PO SCH (10:27)
[2019-04-08] MEDS: FUROSEMIDE 40 MG TABLET (FP) PO SCH (10:27)
[2019-04-08] MEDS: DONEPEZIL HCL 10 MG TABLET (FP) PO SCH (10:27)
[2019-04-08] MEDS: APIXABAN 2.5 MG TABLET PO SCH ×2 (10:27→21:39)
[2019-04-08] MEDS: MEMANTINE HCL 5 MG TABLET (UD) PO SCH ×2 (10:27→21:39)
[2019-04-08] MEDS: LACTOBACILLUS ACIDOPHILUS 1 TABLET PO SCH (10:27)
[2019-04-08] MEDS: metoPROLOL SUCCINATE 25 MG TAB.SR.24H (FP) PO SCH (10:27)
[2019-04-08] MEDS ORDERED: FUROSEMIDE 40 MG TABLET (FP) PO SCH (10:58)
[2019-04-08] MEDS ORDERED: FUROSEMIDE 40 MG TABLET (FP) PO ONE (10:58)
[2019-04-08] MEDS ORDERED: ONDANSETRON 4 MG/2 ML VIAL ONE (14:03)
--- NOTE | 2019-04-08 14:46 | PN ---
Progress Note, Physician History of Present Illness: poor appetite - Current Medication List Current Medications: Active Medications Amiodarone HCl (Cordarone -) 100 mg PO DAILY [facility] Last Admin: 04/08/19 10:26 Dose: 100 mg Apixaban (Eliquis -) 2.5 mg PO BID [facility] Last Admin: 04/08/19 10:27 Dose: 2.5 mg Atorvastatin Calcium (Lipitor -) 10 mg PO HS [facility] Last Admin: 04/07/19 21:30 Dose: 10 mg Donepezil HCl (Aricept -) 10 mg PO DAILY [facility] Last Admin: 04/08/19 10:27 Dose: 10 mg Fluoxetine HCl (Prozac -) 20 mg PO DAILY [facility] Last Admin: 04/08/19 10:27 Dose: 20 mg Furosemide (Lasix -) 80 mg PO DAILY [facility] Ceftriaxone Sodium 2 gm/ (Dextrose) 100 mls @ 200 mls/hr IVPB Q12H [facility]; Protocol Last Admin: 04/08/19 06:09 Dose: 200 mls/hr Ampicillin Sodium 2 gm/ Sodium (Chloride) 100 mls @ 200 mls/hr IVPB Q6H-IV [facility] ; Protocol Last Admin: 04/08/19 10:26 Dose: 200 mls/hr Lactobacillus Acidophilus (Bacid -) 1 tab PO DAILY [facility] Last Admin: 04/08/19 10:27 Dose: 1 tab Memantine (Namenda -) 5 mg PO BID [facility] Last Admin: 04/08/19 10:27 Dose: 5 mg Metoprolol Succinate (Toprol Xl -) 25 mg PO DAILY [facility] Last Admin: 04/08/19 10:27 Dose: 25 mg Mirtazapine (Remeron -) 15 mg PO HS [facility] Last Admin: 04/07/19 21:30 Dose: 15 mg Pantoprazole Sodium (Protonix -) 40 mg PO DAILY [facility] Last Admin: 04/08/19 10:27 Dose: 40 mg Potassium Chloride (Potassium Chloride Oral Liquid) 40 meq PO BID [facility] Last Admin: 04/08/19 10:26 Dose: 40 meq - Objective Vital Signs: Vital Signs Temperature 97.8 F 04/08/19 10:00 Pulse Rate 86 04/08/19 10:00 Respiratory Rate 20 04/08/19 10:00 Blood Pressure 128/79 04/08/19 10:00 O2 Sat by Pulse Oximetry (%) 98 04/08/19 09:00 Constitutional: Yes: No Distress HENT: Yes: Atraumatic Neck: Yes: Trachea Midline Cardiovascular: Yes: Regular Rate and Rhythm Respiratory: Yes: CTA Bilaterally Gastrointestinal: Yes: Normal Bowel Sounds Extremities: Yes: WNL Edema: No Neurological: Yes: Alert, Oriented Labs: CBC, BMP 04/07/19 06:10 04/07/19 06:10 Problem List - Problems (1) LILLIE (acute kidney injury) Assessment/Plan: cr improving Code(s): N17.9 - ACUTE KIDNEY FAILURE, UNSPECIFIED (2) Elevated troponin Assessment/Plan: monitor demand ischemia? cardio consult Code(s): R74.8 - ABNORMAL LEVELS OF OTHER SERUM ENZYMES (3) CHF (congestive heart failure) Code(s): I50.9 - HEART FAILURE, UNSPECIFIED (4) Dementia Code(s): F03.90 - UNSPECIFIED DEMENTIA WITHOUT BEHAVIORAL DISTURBANCE (5) GERD (gastroesophageal reflux disease) Code(s): K21.9 - GASTRO-ESOPHAGEAL REFLUX DISEASE WITHOUT ESOPHAGITIS (6) Atrial fibrillation Assessment/Plan: on meds Code(s): I48.91 - UNSPECIFIED ATRIAL FIBRILLATION Qualifiers: Atrial fibrillation type: paroxysmal Qualified Code(s): I48.0 - Paroxysmal atrial fibrillation (7) HTN (hypertension) Assessment/Plan: on meds monitor Code(s): I10 - ESSENTIAL (PRIMARY) HYPERTENSION (8) Positive blood culture Assessment/Plan: on abx id consult Code(s): R78.81 - BACTEREMIA (9) Poor appetite Assessment/Plan: gi eval noted on megace renal dose Code(s): R63.0 - ANOREXIA
[2019-04-08] MEDS ORDERED: ONDANSETRON 4 MG/2 ML VIAL IVPUSH ONE (15:30)
[2019-04-08] MEDS ORDERED: ONDANSETRON 4 MG/2 ML VIAL IVPB PRN (15:37)
[2019-04-08] MEDS: AMINO ACIDS 4.25%/D5W 1,000 ML IV SCH (17:22)
[2019-04-08] MEDS: ATORVASTATIN CA 10 MG TABLET (FP) PO SCH (21:39)
[2019-04-08] MEDS: MIRTAZAPINE 15 MG TABLET (FP) PO SCH (21:39)
[2019-04-09] MEDS ORDERED: PT OWN MED DRAWER 7, Y5N ONE ×3 (03:32→16:34)
[2019-04-09] MEDS ORDERED: DEXTROSE 5%-WATER 100 ML IVPB ONE ×2 (03:33→16:34)
[2019-04-09] MEDS: AMPICILLIN - 2 GM in SODIUM CHLORIDE 100 ML IVPB SCH ×4 (03:42→21:48)
[2019-04-09] MEDS: CEFTRIAXONE 2 GM in DEXTROSE 5%-WATER 100 ML IVPB SCH ×2 (05:13→17:02)
[2019-04-09 07:27] LABS: BLOOD UREA NITROGEN 29.3 mg/dL (7-18); CALCIUM 7.6 mg/dL (8.5-10.1); CREATININE 1.6 mg/dL (0.55-1.3); POTASSIUM 3.3 mmol/L (3.5-5.1)
--- NOTE | 2019-04-09 09:36 | PN ---
Progress Note, Physician Chief Complaint: "i can't eat anything" History of Present Illness: very concerned that hasn't eaten in several days due to complete loss of appetite. states she never had this feeling before. denies nausea, altered taste denies sob no cp, palpit, leg swelling no cigs - Current Medication List Current Medications: Active Medications Amiodarone HCl (Cordarone -) 100 mg PO DAILY [facility] Last Admin: 04/08/19 10:26 Dose: 100 mg Apixaban (Eliquis -) 2.5 mg PO BID [facility] Last Admin: 04/08/19 21:39 Dose: 2.5 mg Atorvastatin Calcium (Lipitor -) 10 mg PO HS [facility] Last Admin: 04/08/19 21:39 Dose: 10 mg Donepezil HCl (Aricept -) 10 mg PO DAILY [facility] Last Admin: 04/08/19 10:27 Dose: 10 mg Fluoxetine HCl (Prozac -) 20 mg PO DAILY [facility] Last Admin: 04/08/19 10:27 Dose: 20 mg Furosemide (Lasix -) 80 mg PO DAILY [facility] Ceftriaxone Sodium 2 gm/ (Dextrose) 100 mls @ 200 mls/hr IVPB Q12H [facility]; Protocol Last Admin: 04/09/19 05:13 Dose: 200 mls/hr Ampicillin Sodium 2 gm/ Sodium (Chloride) 100 mls @ 200 mls/hr IVPB Q6H-IV [facility] ; Protocol Last Admin: 04/09/19 03:42 Dose: 200 mls/hr Amino Acids (Clinimix -) 1,000 mls @ 42 mls/hr IV Q24H [facility] Last Admin: 04/08/19 17:22 Dose: 42 mls/hr Lactobacillus Acidophilus (Bacid -) 1 tab PO DAILY [facility] Last Admin: 04/08/19 10:27 Dose: 1 tab Memantine (Namenda -) 5 mg PO BID [facility] Last Admin: 04/08/19 21:39 Dose: 5 mg Metoprolol Succinate (Toprol Xl -) 25 mg PO DAILY [facility] Last Admin: 04/08/19 10:27 Dose: 25 mg Mirtazapine (Remeron -) 15 mg PO HS [facility] Last Admin: 04/08/19 21:39 Dose: 15 mg Ondansetron HCl (Zofran Injection) 4 mg IVPB Q4H PRN PRN Reason: NAUSEA AND/OR VOMITING Pantoprazole Sodium (Protonix -) 40 mg PO DAILY [facility] Last Admin: 04/08/19 10:27 Dose: 40 mg Potassium Chloride (Potassium Chloride Oral Liquid) 40 meq PO BID [facility] Last Admin: 04/08/19 21:39 Dose: 40 meq - Objective Vital Signs: Vital Signs Temperature 97.5 F L 04/09/19 05:47 Pulse Rate 82 04/09/19 05:47 Respiratory Rate 20 04/09/19 05:47 Blood Pressure 122/60 04/09/19 05:47 O2 Sat by Pulse Oximetry (%) 98 04/08/19 20:27 Constitutional: Yes: No Distress, Calm Eyes: No: Sclera Icterus HENT: No: Nasal Congestion Cardiovascular: Yes: Regular Rate and Rhythm, JVD (probable), Murmur (loud MR murmur no change), S1, S2, Other (PMI non diplaced). No: Gallop Respiratory: Yes: CTA Bilaterally. No: Accessory Muscle Use, Rales, Wheezes Gastrointestinal: Yes: Normal Bowel Sounds, Soft. No: Tenderness Musculoskeletal: Yes: Other (No kyphosis) Extremities: No: Cold, Cyanosis Edema: No Integumentary: No: Jaundice Neurological: Yes: Alert. No: Seizure Psychiatric: No: Agitated Labs: CBC, BMP 04/07/19 06:10 04/09/19 05:35 Assessment/Plan CXR: clear lungs/pleura EKG sinus, prolonged QTc 515 ms, stable compared to prior echo 03/2019 mild conc LVH, pseudonormalization, RV nl, PPM in R heart, RV function nl, LA severely dilated, mod MAC, significant prolapse vs partial flail of post mitral leaflet, severe eccentric anteriorly directed MR, mild to mod TR, RVSP elevated 40-50 mmHg, mild AR, no obvoius intracardiac vegetations seen tele: NSR, PVCs, 1x NSVT IMP/Plan: sepsis, E. faecalis bacteremia, UTI - ID input appreciated, likely urinary source - no obvious vegetation on echo. repeat bld cx ngtd. no signs of cardiogenic shock, CVA, acute HF - case has been disc'd by our team with dr art who feels that conservative mgmt with 6 wks of abx is preferable given she is hi risk for complications of VITA (including if done [place] [facility] [place] and unrevealing VITA will not definitively exclude risk of SBE given in light of indwelling PM leads - cont 6 wks abx course - s/p PICC line anorexia, dehydration, hypernatremia, LILLIE: - baseline creat 1.1-1.3 - weakness, dehydration improved with IVF-->fluids stopped despite creat remains above baseline, given evidence of volume-excess - renal following - considering PEG tube - amio added 1-2 mo ago in hospital for AF control--doubt low dose (100 qd) causing severe anorexia but possible, will hold med and observe elevated trop: - indeterminate range, flat trend, no ischemic changes - less likely ACS - likely demand in setting of sepsis chronic diastolic chf, severe MR: - PO lasix resumed 04/06 for evidence of volume s/p IV hydration here, wt increased 118 to 129 lbs here - + JVD, no sob. - note: prior 03/28 admit with acute CHF notes reviewed: she had previously required lasix 80 IV bid for adequate diuresis here, had been sent out on lasix 80 bid in [place] (incorrectly listed as 40 bid in admit notes then)--sent out with rec for 80 bid last time (again notes incorrectly list 40 bid). currently receiving lasix 40 qd, has poor appetite/po intake, considering PEG tube for nutrition support. change lasix to 80 qd for now, observe labs and phys exam. - wt continued to trend up. incr lasix to 80 bid. 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 anorexia s.e.) -incr metoprolol to 25 bid (low bp's during active diuresis previously) -cont eliquis 2.5 bid--adjusted for age, weight anemia: -hgb stable -monitor trends and stools -cont AC for now VTach: -NSVT on tele during prior admissions -K/Mag per usual aggressive targets (08/09) -low dose BB as soft bp's allow hld: -cont home statin Progressive Cognitive decline: -Followed by Neuro as outpt
[2019-04-09] MEDS ORDERED: POTASSIUM CHLORIDE ORAL LIQUID 20 MEQ/15 ML PO SCH ×2 (09:38→14:00)
[2019-04-09] MEDS: AMIODARONE HCL 200 MG TABLET (FP) PO SCH (09:45)
[2019-04-09] MEDS: APIXABAN 2.5 MG TABLET PO SCH ×3 (09:45→22:02)
[2019-04-09] MEDS: metoPROLOL SUCCINATE 25 MG TAB.SR.24H (FP) PO SCH ×4 (09:46→22:03)
[2019-04-09] MEDS: FLUoxetine HCL 20 MG CAPSULE (FP) PO SCH (09:46)
[2019-04-09] MEDS: DONEPEZIL HCL 10 MG TABLET (FP) PO SCH (09:46)
[2019-04-09] MEDS: LACTOBACILLUS ACIDOPHILUS 1 TABLET PO SCH (09:46)
[2019-04-09] MEDS: MEMANTINE HCL 5 MG TABLET (UD) PO SCH ×3 (09:46→22:02)
[2019-04-09] MEDS: PANTOPRAZOLE 40 MG TABLET (FP) PO SCH (09:46)
[2019-04-09] MEDS ORDERED: FUROSEMIDE 40 MG TABLET (FP) PO SCH ×2 (10:00→10:16)
--- NOTE | 2019-04-09 14:49 | PN ---
Progress Note, Physician - Current Medication List Current Medications: Active Medications Apixaban (Eliquis -) 2.5 mg PO BID [facility] Last Admin: 04/09/19 09:45 Dose: 2.5 mg Atorvastatin Calcium (Lipitor -) 10 mg PO HS [facility] Last Admin: 04/08/19 21:39 Dose: 10 mg Donepezil HCl (Aricept -) 10 mg PO DAILY [facility] Last Admin: 04/09/19 09:46 Dose: 10 mg Fluoxetine HCl (Prozac -) 20 mg PO DAILY [facility] Last Admin: 04/09/19 09:46 Dose: 20 mg Furosemide (Lasix -) 80 mg PO BID@0600,1800 [facility] Ceftriaxone Sodium 2 gm/ (Dextrose) 100 mls @ 200 mls/hr IVPB Q12H [facility]; Protocol Last Admin: 04/09/19 05:13 Dose: 200 mls/hr Ampicillin Sodium 2 gm/ Sodium (Chloride) 100 mls @ 200 mls/hr IVPB Q6H-IV [facility] ; Protocol Last Admin: 04/09/19 14:23 Dose: 200 mls/hr Amino Acids (Clinimix -) 1,000 mls @ 42 mls/hr IV Q24H [facility] Last Admin: 04/08/19 17:22 Dose: 42 mls/hr Lactobacillus Acidophilus (Bacid -) 1 tab PO DAILY [facility] Last Admin: 04/09/19 09:46 Dose: 1 tab Memantine (Namenda -) 5 mg PO BID [facility] Last Admin: 04/09/19 09:46 Dose: 5 mg Metoprolol Succinate (Toprol Xl -) 25 mg PO BID [facility] Last Admin: 04/09/19 10:38 Dose: Not Given Mirtazapine (Remeron -) 15 mg PO HS [facility] Last Admin: 04/08/19 21:39 Dose: 15 mg Ondansetron HCl (Zofran Injection) 4 mg IVPB Q4H PRN PRN Reason: NAUSEA AND/OR VOMITING Pantoprazole Sodium (Protonix -) 40 mg PO DAILY [facility] Last Admin: 04/09/19 09:46 Dose: 40 mg Potassium Chloride (Potassium Chloride Oral Liquid) 40 meq PO TID [facility] Last Admin: 04/09/19 14:20 Dose: 40 meq - Objective Vital Signs: Vital Signs Temperature 98.2 F 04/09/19 10:00 Pulse Rate 82 04/09/19 10:00 Respiratory Rate 20 04/09/19 10:00 Blood Pressure 135/84 04/09/19 10:00 O2 Sat by Pulse Oximetry (%) 95 04/09/19 09:00 Constitutional: Yes: No Distress HENT: Yes: Atraumatic Neck: Yes: Supple Cardiovascular: Yes: Regular Rate and Rhythm Respiratory: Yes: CTA Bilaterally Gastrointestinal: Yes: Normal Bowel Sounds Extremities: Yes: WNL Edema: No Neurological: Yes: Alert, Oriented Labs: CBC, BMP 04/07/19 06:10 04/09/19 05:35 Problem List - Problems (1) LILLIE (acute kidney injury) Assessment/Plan: cr improving Code(s): N17.9 - ACUTE KIDNEY FAILURE, UNSPECIFIED (2) Elevated troponin Assessment/Plan: stable Code(s): R74.8 - ABNORMAL LEVELS OF OTHER SERUM ENZYMES (3) CHF (congestive heart failure) Code(s): I50.9 - HEART FAILURE, UNSPECIFIED (4) Dementia Code(s): F03.90 - UNSPECIFIED DEMENTIA WITHOUT BEHAVIORAL DISTURBANCE (5) GERD (gastroesophageal reflux disease) Assessment/Plan: on protonix Code(s): K21.9 - GASTRO-ESOPHAGEAL REFLUX DISEASE WITHOUT ESOPHAGITIS (6) Atrial fibrillation Assessment/Plan: on meds Code(s): I48.91 - UNSPECIFIED ATRIAL FIBRILLATION Qualifiers: Atrial fibrillation type: paroxysmal Qualified Code(s): I48.0 - Paroxysmal atrial fibrillation (7) HTN (hypertension) Assessment/Plan: on meds monitor Code(s): I10 - ESSENTIAL (PRIMARY) HYPERTENSION (8) Positive blood culture Assessment/Plan: on abx id consult Code(s): R78.81 - BACTEREMIA (9) Poor appetite Assessment/Plan: gi eval noted on megace renal dose Code(s): R63.0 - ANOREXIA Assessment/Plan daughter has to decide about peg ? d/w daughter in detail answered all her questions
[2019-04-09] MEDS ORDERED: KCL 10 MEQ IVPB 10 MEQ/100 ML INFUS.BAG IVPB SCH (15:00)
[2019-04-09] MEDS: AMINO ACIDS 4.25%/D5W 1,000 ML IV SCH (15:45)
[2019-04-09] MEDS: MEGESTROL ACETATE 400 MG/10 ML UNIT DOSE CUP PO SCH (17:02)
[2019-04-09] MEDS: MIRTAZAPINE 15 MG TABLET (FP) PO SCH ×2 (21:48→22:03)
[2019-04-09] MEDS: ATORVASTATIN CA 10 MG TABLET (FP) PO SCH ×2 (21:48→22:02)
[2019-04-09] MEDS: POTASSIUM CHLORIDE ORAL LIQUID 20 MEQ/15 ML PO SCH ×2 (21:48→22:02)
[2019-04-10] MEDS: AMPICILLIN - 2 GM in SODIUM CHLORIDE 100 ML IVPB SCH ×4 (03:37→21:37)
[2019-04-10] MEDS ORDERED: DEXTROSE 5%-WATER 100 ML IVPB ONE ×2 (04:54→17:05)
[2019-04-10] MEDS: CEFTRIAXONE 2 GM in DEXTROSE 5%-WATER 100 ML IVPB SCH ×2 (05:13→17:13)
[2019-04-10 07:01] LABS: BASO % 0.2 % (0-2.0); EOS % 1.8 % (0-4.5); HEMATOCRIT 27.8 % (32.4-45.2); LYMPH % 8.8 % (8-40); MCH 29.2 pg (25.7-33.7); MCHC 32.3 g/dl (32.0-36.0); MEAN CELL VOLUME 90.6 fl (80-96); MEAN PLT VOLUME 10.3 fl (7.5-11.1); MONO % 8.1 % (3.8-10.2); NEUT % 81.1 % (42.8-82.8); PLATELET COUNT 193 K/MM3 (134-434); RBC 3.07 M/mm3 (3.60-5.2); RDW 18.1 % (11.6-15.6); WHITE BLOOD COUNT 10.1 K/mm3 (4.0-10.0)
[2019-04-10 07:31] LABS: ALBUMIN 1.8 g/dl (3.4-5.0); BILIRUBIN,TOTAL 0.2 mg/dL (0.2-1); BLOOD UREA NITROGEN 34.5 mg/dL (7-18); CALCIUM 7.7 mg/dL (8.5-10.1); CREATININE 1.7 mg/dL (0.55-1.3); TOT PROT 6.1 g/dl (6.4-8.2)
[2019-04-10 07:47] LABS: POTASSIUM 2.5 mmol/L (3.5-5.1)
[2019-04-10] MEDS ORDERED: POTASSIUM CHLORIDE TABS 20 MEQ TABLET.ER (FP) PO ONE (08:13)
[2019-04-10 08:48] LABS: MAGNESIUM 1.7 mg/dL (1.8-2.4)
[2019-04-10] MEDS: KCL 10 MEQ IVPB 10 MEQ/100 ML INFUS.BAG IVPB SCH ×5 (08:55→21:36)
[2019-04-10] MEDS ORDERED: MAGNESIUM SULF 50% (8.12 MEQ/2 ML-1 GM VIAL) IVPB ONE (09:01)
--- NOTE | 2019-04-10 09:34 | PN ---
Progress Note, Physician Chief Complaint: weakness History of Present Illness: yest had difficulty with PO kcl tabs. received IV, then one dose 40meq liquid ordered but she refused. today K 2.5 very weak, could not take even one step with PT had small amt of breakfast--much better than prior days per dtr at bedside denies sob no cp, palp, syncope no cigs - Current Medication List Current Medications: Active Medications Apixaban (Eliquis -) 2.5 mg PO BID [facility] Last Admin: 04/09/19 22:02 Dose: Not Given Atorvastatin Calcium (Lipitor -) 10 mg PO HS [facility] Last Admin: 04/09/19 22:02 Dose: Not Given Donepezil HCl (Aricept -) 10 mg PO DAILY [facility] Last Admin: 04/09/19 09:46 Dose: 10 mg Fluoxetine HCl (Prozac -) 20 mg PO DAILY [facility] Last Admin: 04/09/19 09:46 Dose: 20 mg Ceftriaxone Sodium 2 gm/ (Dextrose) 100 mls @ 200 mls/hr IVPB Q12H [facility]; Protocol Last Admin: 04/10/19 05:13 Dose: 200 mls/hr Ampicillin Sodium 2 gm/ Sodium (Chloride) 100 mls @ 200 mls/hr IVPB Q6H-IV [facility] ; Protocol Last Admin: 04/10/19 03:37 Dose: 200 mls/hr Amino Acids (Clinimix -) 1,000 mls @ 42 mls/hr IV Q24H [facility] Last Admin: 04/09/19 15:45 Dose: 42 mls/hr Potassium Chloride (Potassium Chloride 10 Meq Premix Ivpb -) 10 meq in 100 mls @ 100 mls/hr IVPB Q60M [facility] Stop: 04/10/19 11:14 Last Admin: 04/10/19 08:55 Dose: 100 mls/hr Lactobacillus Acidophilus (Bacid -) 1 tab PO DAILY [facility] Last Admin: 04/09/19 09:46 Dose: 1 tab Megestrol Acetate (Megace Oral Suspension -) 200 mg PO DAILY [facility] Last Admin: 04/09/19 17:02 Dose: 200 mg Memantine (Namenda -) 5 mg PO BID [facility] Last Admin: 04/09/19 22:02 Dose: Not Given Metoprolol Succinate (Toprol Xl -) 25 mg PO BID [facility] Last Admin: 04/09/19 22:03 Dose: Not Given Mirtazapine (Remeron -) 15 mg PO HS [facility] Last Admin: 04/09/19 22:03 Dose: Not Given Ondansetron HCl (Zofran Injection) 4 mg IVPB Q4H PRN PRN Reason: NAUSEA AND/OR VOMITING Pantoprazole Sodium (Protonix -) 40 mg PO DAILY [facility] Last Admin: 04/09/19 09:46 Dose: 40 mg Potassium Chloride (Potassium Chloride Oral Liquid) 40 meq PO BID [facility] Last Admin: 04/09/19 22:02 Dose: Not Given - Objective Vital Signs: Vital Signs Temperature 97.5 F L 04/09/19 20:14 Pulse Rate 72 04/09/19 20:14 Respiratory Rate 20 04/09/19 20:14 Blood Pressure 106/68 04/09/19 20:14 O2 Sat by Pulse Oximetry (%) 99 04/09/19 20:14 Constitutional: Yes: No Distress, Calm Eyes: No: Sclera Icterus HENT: No: Nasal Congestion Cardiovascular: Yes: Regular Rate and Rhythm, JVD, Murmur (MR murmur unchanged) , S1, S2, Other (PMI non diplaced). No: Gallop Respiratory: Yes: CTA Bilaterally. No: Accessory Muscle Use, Mechanically Ventilated, Wheezes Gastrointestinal: Yes: Normal Bowel Sounds, Soft. No: Tenderness Musculoskeletal: Yes: Other (No kyphosis) Extremities: No: Cold, Cyanosis Edema: No Integumentary: No: Jaundice Neurological: Yes: Alert. No: Seizure Psychiatric: No: Agitated Labs: CBC, BMP 04/10/19 06:23 04/10/19 06:23 Assessment/Plan CXR: clear lungs/pleura EKG sinus, prolonged QTc 515 ms, stable compared to prior echo 03/2019 mild conc LVH, pseudonormalization, RV nl, PPM in R heart, RV function nl, LA severely dilated, mod MAC, significant prolapse vs partial flail of post mitral leaflet, severe eccentric anteriorly directed MR, mild to mod TR, RVSP elevated 40-50 mmHg, mild AR, no obvoius intracardiac vegetations seen tele: NSR, PVCs IMP/Plan: sepsis, E. faecalis bacteremia, UTI - ID input appreciated, likely urinary source - no obvious vegetation on echo. repeat bld cx ngtd. no signs of cardiogenic shock, CVA, acute HF - case has been disc'd by our team with dr art who feels that conservative mgmt with 6 wks of abx is preferable given she is hi risk for complications [place] [facility] [place] and unrevealing VITA will not definitively exclude risk of SBE given in light of indwelling PM leads - cont 6 wks abx course - s/p PICC line anorexia, dehydration, hypernatremia, LILLIE: - baseline creat 1.1-1.3 - weakness, dehydration improved with IVF-->fluids stopped despite creat remains above baseline, given evidence of volume-excess - renal following - considering PEG tube - amio added 1-2 mo ago in hospital for AF control--doubt low dose (100 qd) causing severe anorexia but possible, will hold med and observe - ? defer PEG while assess appetite/PO intake after few days off amio--d/w'd chris lincoln and ericka acute on chronic diastolic chf, severe MR: - PO lasix resumed 04/06 for evidence of volume s/p IV hydration here, wt increased 118 to 129 lbs here - + JVD, mild tachypnea. wt continues to steadily increase despite lasix 40 qd, then 80 qd on 04/09. - will need IV diuresis, however first must replete K (2.5 today)--not taking PO KCL, will change to IV (ordered) and supplement with liquid PO today -please note: elevated bun/creat in setting of clear evidence of volume overload is due to low cardiac output +/- cardiorenal syndrome--despite patient not eating well, the marked JVD, tachypnea and progressively increasing weight of 10 lbs in 8 days demonstrates she is not total body volume-depleted - note: prior 03/28 admit with acute CHF notes reviewed: she had previously required lasix 80 IV bid for adequate diuresis here, had been sent out on lasix 80 bid in [place] (incorrectly listed as 40 bid in admit notes then)--sent out with rec for 80 bid last time (again notes incorrectly list 40 bid). 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 anorexia s.e.) -incr metoprolol to 25 bid (low bp's during active diuresis previously) -cont eliquis 2.5 bid--adjusted for age, weight anemia: -hgb stable -monitor trends and stools -cont AC for now VTach: -NSVT on tele during prior admissions -K/Mag per usual aggressive targets (08/09) -low dose BB as soft bp's allow hld: -cont home statin Progressive Cognitive decline: -Followed by Neuro as outpt
[2019-04-10] MEDS ORDERED: PT OWN MED DRAWER 7, Y5N ONE ×5 (09:47→21:29)
[2019-04-10] MEDS ORDERED: FUROSEMIDE 40 MG TABLET (FP) PO SCH (10:00)
[2019-04-10] MEDS: MEGESTROL ACETATE 400 MG/10 ML UNIT DOSE CUP PO SCH (10:21)
[2019-04-10] MEDS: POTASSIUM CHLORIDE ORAL LIQUID 20 MEQ/15 ML PO SCH ×2 (10:22→21:50)
[2019-04-10] MEDS: APIXABAN 2.5 MG TABLET PO SCH ×2 (10:22→21:49)
[2019-04-10] MEDS: MEMANTINE HCL 5 MG TABLET (UD) PO SCH ×2 (10:22→21:49)
[2019-04-10] MEDS: metoPROLOL SUCCINATE 25 MG TAB.SR.24H (FP) PO SCH ×2 (10:22→21:49)
[2019-04-10] MEDS: LACTOBACILLUS ACIDOPHILUS 1 TABLET PO SCH (10:22)
[2019-04-10] MEDS: FLUoxetine HCL 20 MG CAPSULE (FP) PO SCH (10:22)
[2019-04-10] MEDS: PANTOPRAZOLE 40 MG TABLET (FP) PO SCH (10:22)
[2019-04-10] MEDS: DONEPEZIL HCL 10 MG TABLET (FP) PO SCH (10:22)
--- NOTE | 2019-04-10 10:38 | PN ---
Progress Note, IN[facility]GE - Note Progress Note: Selected Entries 04/09/19 04/09/19 04/09/19 02:00 05:47 10:00 Breakfast 25% Lunch Temperature 97.7 F 97.5 F L 98.2 F 04/09/19 04/09/19 04/09/19 14:00 18:00 20:14 Breakfast Lunch 0 Temperature 97.5 F L 97.4 F L 97.5 F L Laboratory Tests 04/10/19 06:23 WBC 10.1 H Megace initiated on 04/09. PEG via IR being considered. Per Psychiatry-d/c Aricept which can cause Anorexia. Suggest calorie count to determine if pt is receiving sufficient calories via ensure. Consider MBS/esoph or esophagram regarding tolerance of solids.
--- NOTE | 2019-04-10 11:02 | CON.PSY ---
Psychiatry Consult Chief Complaint: 83 Cami 9olod female admitted with CHF, has a history of Depresion and ?: Dementia.Spoke to patients daughter. Lives at home with b and [facility] attending. Symptoms: reports: Anxiety, Panic Attacks, Obsessive Thoughts - Previous Psychiatric Treatment Outpatient: Less than 6 mos ago Inpatient: None - Previous Substance Abuse Treatment Outpatient: None Inpatient: None - Reason for Previous Treatment Reason for Previous Treatment: Major Depression - Current Medications Current Medications: Active Medications Apixaban (Eliquis -) 2.5 mg PO BID [facility] Last Admin: 04/10/19 10:22 Dose: 2.5 mg Atorvastatin Calcium (Lipitor -) 10 mg PO HS [facility] Last Admin: 04/09/19 22:02 Dose: Not Given Donepezil HCl (Aricept -) 10 mg PO DAILY [facility] Last Admin: 04/10/19 10:22 Dose: 10 mg Fluoxetine HCl (Prozac -) 20 mg PO DAILY [facility] Last Admin: 04/10/19 10:22 Dose: 20 mg Ceftriaxone Sodium 2 gm/ (Dextrose) 100 mls @ 200 mls/hr IVPB Q12H [facility]; Protocol Last Admin: 04/10/19 05:13 Dose: 200 mls/hr Ampicillin Sodium 2 gm/ Sodium (Chloride) 100 mls @ 200 mls/hr IVPB Q6H-IV [facility] ; Protocol Last Admin: 04/10/19 03:37 Dose: 200 mls/hr Amino Acids (Clinimix -) 1,000 mls @ 42 mls/hr IV Q24H [facility] Last Admin: 04/09/19 15:45 Dose: 42 mls/hr Potassium Chloride (Potassium Chloride 10 Meq Premix Ivpb -) 10 meq in 100 mls @ 100 mls/hr IVPB Q60M [facility] Stop: 04/10/19 11:14 Last Admin: 04/10/19 10:49 Dose: 100 mls/hr Lactobacillus Acidophilus (Bacid -) 1 tab PO DAILY [facility] Last Admin: 04/10/19 10:22 Dose: 1 tab Megestrol Acetate (Megace Oral Suspension -) 200 mg PO DAILY [facility] Last Admin: 04/10/19 10:21 Dose: 200 mg Memantine (Namenda -) 5 mg PO BID [facility] Last Admin: 04/10/19 10:22 Dose: 5 mg Metoprolol Succinate (Toprol Xl -) 25 mg PO BID [facility] Last Admin: 04/10/19 10:22 Dose: 25 mg Mirtazapine (Remeron -) 15 mg PO HS [facility] Last Admin: 04/09/19 22:03 Dose: Not Given Ondansetron HCl (Zofran Injection) 4 mg IVPB Q4H PRN PRN Reason: NAUSEA AND/OR VOMITING Pantoprazole Sodium (Protonix -) 40 mg PO DAILY [facility] Last Admin: 04/10/19 10:22 Dose: 40 mg Potassium Chloride (Potassium Chloride Oral Liquid) 40 meq PO BID [facility] Last Admin: 04/10/19 10:22 Dose: 40 meq - Allergies Allergies: Allergies Allergy/AdvReac Type Severity Reaction Status Date / Time No Known Allergies Allergy Verified 03/12/19 13:59 - Current Living Status Usual Living Arrangement: With Significant Other - Current Mental Status Evaluation Appearance: Well Groomed Attitude: Cooperative - Affect Affect: Full Range Appropriateness: Appropriate to Content - Mood Mood: Euthymic - Speech/Language Expressive: Coherent Receptive: Age Appropriate Comprehension of Spoken Words - Psychomotor Activity Psychomotor Activity: Slowed - Thought Process Thought Process: Intact - Thought Content Hallucinations: Absent Delusions: Absent - Self Perception Self Perception: No Impairment - Cognition Attention: Alert Orientation: Time, Person Memory, Short Term: 2/3 Memory, Remote with Promptin/3 - Concentration Serial Sevens Intact: Yes Simple Calculations Intact: Yes - Abstraction Proverb Interpretation: Intact Judgement: Intact - Insight Insight: Intact - Impulse Control Impulse Control: Good Control - Suicidal Ideation Suicidal Ideation: No - Homicidal Ideation Homicidal Ideation: No Assessment/Plan 1) Continue with [place] and [place]. 2) d/c Aricept which can cause Anorexia.
--- NOTE | 2019-04-10 14:36 | PN ---
Progress Note, Physician History of Present Illness: Pt seen and examined at bedside. She remains confused. She has poor PO intake. Family are discussing GOC. - Current Medication List Current Medications: Active Medications Apixaban (Eliquis -) 2.5 mg PO BID [facility] Last Admin: 04/10/19 10:22 Dose: 2.5 mg Atorvastatin Calcium (Lipitor -) 10 mg PO HS [facility] Last Admin: 04/09/19 22:02 Dose: Not Given Fluoxetine HCl (Prozac -) 20 mg PO DAILY [facility] Last Admin: 04/10/19 10:22 Dose: 20 mg Ceftriaxone Sodium 2 gm/ (Dextrose) 100 mls @ 200 mls/hr IVPB Q12H [facility]; Protocol Last Admin: 04/10/19 05:13 Dose: 200 mls/hr Ampicillin Sodium 2 gm/ Sodium (Chloride) 100 mls @ 200 mls/hr IVPB Q6H-IV [facility] ; Protocol Last Admin: 04/10/19 11:42 Dose: 200 mls/hr Amino Acids (Clinimix -) 1,000 mls @ 42 mls/hr IV Q24H [facility] Last Admin: 04/09/19 15:45 Dose: 42 mls/hr Lactobacillus Acidophilus (Bacid -) 1 tab PO DAILY [facility] Last Admin: 04/10/19 10:22 Dose: 1 tab Megestrol Acetate (Megace Oral Suspension -) 200 mg PO DAILY [facility] Last Admin: 04/10/19 10:21 Dose: 200 mg Memantine (Namenda -) 5 mg PO BID [facility] Last Admin: 04/10/19 10:22 Dose: 5 mg Metoprolol Succinate (Toprol Xl -) 25 mg PO BID [facility] Last Admin: 04/10/19 10:22 Dose: 25 mg Mirtazapine (Remeron -) 15 mg PO HS [facility] Last Admin: 04/09/19 22:03 Dose: Not Given Ondansetron HCl (Zofran Injection) 4 mg IVPB Q4H PRN PRN Reason: NAUSEA AND/OR VOMITING Pantoprazole Sodium (Protonix -) 40 mg PO DAILY [facility] Last Admin: 04/10/19 10:22 Dose: 40 mg Potassium Chloride (Potassium Chloride Oral Liquid) 40 meq PO BID [facility] Last Admin: 04/10/19 10:22 Dose: 40 meq - Objective Vital Signs: Vital Signs Temperature 97.2 F L 04/10/19 10:00 Pulse Rate 76 04/10/19 10:00 Respiratory Rate 20 04/10/19 10:00 Blood Pressure 120/72 04/10/19 10:00 O2 Sat by Pulse Oximetry (%) 98 04/10/19 09:00 Constitutional: Yes: Calm Eyes: Yes: Conjunctiva Clear HENT: Yes: Atraumatic Neck: Yes: Supple Cardiovascular: Yes: S1, S2 Respiratory: Yes: On Nasal O2 Gastrointestinal: Yes: Soft Genitourinary: Yes: Incontinence Musculoskeletal: Yes: Muscle Weakness Edema: Yes Edema: LLE: Trace, RLE: Trace Neurological: Yes: Confusion Labs: CBC, BMP 04/10/19 06:23 04/10/19 06:23 Problem List - Problems (1) LILLIE (acute kidney injury) Code(s): N17.9 - ACUTE KIDNEY FAILURE, UNSPECIFIED (2) Hypernatremia Code(s): E87.0 - HYPEROSMOLALITY AND HYPERNATREMIA Assessment/Plan Current Medications Generic Name Dose Route Start Last Admin Trade Name Jose PRN Reason Stop Dose Admin Apixaban 2.5 mg 03/27/19 22:00 04/10/19 10:22 Eliquis - PO 2.5 mg BID [facility] Administration Atorvastatin Calcium 10 mg 03/27/19 22:00 04/09/19 22:02 Lipitor - PO Not Given HS [facility] Fluoxetine HCl 20 mg 03/28/19 13:00 04/10/19 10:22 Prozac - PO 20 mg DAILY [facility] Administration Ceftriaxone Sodium 2 gm/ 100 mls @ 200 mls/hr 03/30/19 18:00 04/10/19 05:13 Dextrose IVPB 200 mls/hr Q12H [facility] Administration Protocol Ampicillin Sodium 2 gm/ Sodium 100 mls @ 200 mls/hr 03/31/19 15:00 04/10/19 11:42 Chloride IVPB 200 mls/hr Q6H-IV [facility] Administration Protocol Amino Acids 1,000 mls @ 42 mls/hr 04/08/19 15:45 04/09/19 15:45 Clinimix - IV 42 mls/hr Q24H [facility] Administration Lactobacillus Acidophilus 1 tab 03/31/19 12:00 04/10/19 10:22 Bacid - PO 1 tab DAILY [facility] Administration Megestrol Acetate 200 mg 04/09/19 15:30 04/10/19 10:21 Megace Oral Suspension - PO 200 mg DAILY [facility] Administration Memantine 5 mg 03/27/19 22:00 04/10/19 10:22 Namenda - PO 5 mg BID [facility] Administration Metoprolol Succinate 25 mg 04/09/19 10:15 04/10/19 10:22 Toprol Xl - PO 25 mg BID [facility] Administration Mirtazapine 15 mg 03/28/19 22:00 04/09/19 22:03 Remeron - PO Not Given HS [facility] Ondansetron HCl 4 mg 04/08/19 15:37 Zofran Injection IVPB Q4H PRN NAUSEA AND/OR VOMITING Pantoprazole Sodium 40 mg 03/28/19 13:00 04/10/19 10:22 Protonix - PO 40 mg DAILY [facility] Administration Potassium Chloride 40 meq 04/09/19 22:00 04/10/19 10:22 Potassium Chloride Oral Liquid PO 40 meq BID [facility] Administration Impression 1. LILLIE 2. chf 3. mitral regurg 4. dementia 5. a-fib 6. hld 7. solitary right kidney 8. UTI 9. right side hydro 10. bacteremia 11. hypernatremia 12. hypokalemia Plan - hold lasix as potassium is low - may use aldactone - replace potassium - repeat labs - discussed with family - pt on clinimix trial
[2019-04-10] MEDS: AMINO ACIDS 4.25%/D5W 1,000 ML IV SCH (15:45)
--- NOTE | 2019-04-10 17:28 | PN ---
Progress Note (short form) - Note Progress Note: d/w daughter at bedside meds being adjusted, seen by psychiatry denies abdominal pain, denies diarrhea, denies change in taste ate a bit today Vital Signs Period Temp Pulse Resp BP Sys/Rice Pulse Ox Last 24 Hr 97.2 F-98 F 70-76 20-20 120-139/59-72 98 cor-rrr murmur unchanged lungs decreased bs at bases abd soft,nt ext no edema CBC, BMP 04/10/19 06:23 04/10/19 15:05 Microbiology 03/28/19 17:00 Blood - Peripheral Venous Blood Culture - Final NO GROWTH AFTER 5 DAYS INCUBATION 03/28/19 17:00 Blood - Peripheral Venous Blood Culture - Final NO GROWTH AFTER 5 DAYS INCUBATION 03/27/19 15:55 Blood - Peripheral Venous Blood Culture - Final Enterococcus Faecalis 03/27/19 15:55 Blood - Peripheral Venous Blood Culture - Final Enterococcus Faecalis 03/27/19 16:34 Urine - Urine Clean Catch Urine Culture - Final Contaminated: Please Repeat Current Medications Apixaban (Eliquis -) 2.5 mg PO BID [facility] Last Admin: 04/10/19 21:49 Dose: 2.5 mg Atorvastatin Calcium (Lipitor -) 10 mg PO HS [facility] Last Admin: 04/10/19 21:49 Dose: 10 mg Fluoxetine HCl (Prozac -) 20 mg PO DAILY [facility] Last Admin: 04/10/19 10:22 Dose: 20 mg Ceftriaxone Sodium 2 gm/ (Dextrose) 100 mls @ 200 mls/hr IVPB Q12H [facility]; Protocol Last Admin: 04/10/19 17:13 Dose: 200 mls/hr Ampicillin Sodium 2 gm/ Sodium (Chloride) 100 mls @ 200 mls/hr IVPB Q6H-IV [facility] ; Protocol Last Admin: 04/10/19 21:37 Dose: 200 mls/hr Amino Acids (Clinimix -) 1,000 mls @ 42 mls/hr IV Q24H [facility] Last Admin: 04/10/19 15:45 Dose: 42 mls/hr Lactobacillus Acidophilus (Bacid -) 1 tab PO DAILY [facility] Last Admin: 04/10/19 10:22 Dose: 1 tab Megestrol Acetate (Megace Oral Suspension -) 200 mg PO DAILY [facility] Last Admin: 04/10/19 10:21 Dose: 200 mg Memantine (Namenda -) 5 mg PO BID [facility] Last Admin: 04/10/19 21:49 Dose: 5 mg Metoprolol Succinate (Toprol Xl -) 25 mg PO BID [facility] Last Admin: 04/10/19 21:49 Dose: 25 mg Mirtazapine (Remeron -) 15 mg PO HS [facility] Last Admin: 04/10/19 21:50 Dose: 15 mg Ondansetron HCl (Zofran Injection) 4 mg IVPB Q4H PRN PRN Reason: NAUSEA AND/OR VOMITING Pantoprazole Sodium (Protonix -) 40 mg PO DAILY [facility] Last Admin: 04/10/19 10:22 Dose: 40 mg Potassium Chloride (Potassium Chloride Oral Liquid) 40 meq PO BID [facility] Last Admin: 04/10/19 21:50 Dose: 40 meq echo+valvular disease, no obvious vegetations noted a/p enterococcal bacteremia-cannot r/o endocarditis with valvular heart disease and PPM no plans for VITA (high risk), plan 6 weeks amp/rocephin repeat blood culture negative suspect urinary source with pyuria on admission valvular heart disease PPM lillie/ckd- on clinimis, lasix on hold continue ampicillin/ceftriaxone day #14 antibiotics- on probiotics as well Problem List - Problems (1) Positive blood culture Code(s): R78.81 - BACTEREMIA (2) LILLIE (acute kidney injury) Code(s): N17.9 - ACUTE KIDNEY FAILURE, UNSPECIFIED (3) Mitral valve regurgitation Code(s): I34.0 - NONRHEUMATIC MITRAL (VALVE) INSUFFICIENCY (4) Pacemaker Code(s): Z95.0 - PRESENCE OF CARDIAC PACEMAKER
[2019-04-10 17:52] LABS: GLUCOSE,RANDOM 172 mg/dL (74-106)
[2019-04-10 17:53] LABS: CALCIUM 7.4 mg/dL (8.5-10.1); CHLORIDE 112 mmol/L (98-107); CO2 13 mmol/L (21-32); CREATININE 1.6 mg/dL (0.55-1.3); MAGNESIUM 2.3 mg/dL (1.8-2.4); SODIUM 142 mmol/L (136-145)
[2019-04-10] MEDS ORDERED: POTASSIUM CHLORIDE ORAL LIQUID 20 MEQ/15 ML PO ONE (18:14)
--- NOTE | 2019-04-10 18:31 | PN ---
Progress Note, Physician History of Present Illness: still poor appetite drinking ensure - Current Medication List Current Medications: Active Medications Apixaban (Eliquis -) 2.5 mg PO BID [facility] Last Admin: 04/10/19 10:22 Dose: 2.5 mg Atorvastatin Calcium (Lipitor -) 10 mg PO HS [facility] Last Admin: 04/09/19 22:02 Dose: Not Given Fluoxetine HCl (Prozac -) 20 mg PO DAILY [facility] Last Admin: 04/10/19 10:22 Dose: 20 mg Ceftriaxone Sodium 2 gm/ (Dextrose) 100 mls @ 200 mls/hr IVPB Q12H [facility]; Protocol Last Admin: 04/10/19 17:13 Dose: 200 mls/hr Ampicillin Sodium 2 gm/ Sodium (Chloride) 100 mls @ 200 mls/hr IVPB Q6H-IV [facility] ; Protocol Last Admin: 04/10/19 14:58 Dose: 200 mls/hr Amino Acids (Clinimix -) 1,000 mls @ 42 mls/hr IV Q24H [facility] Last Admin: 04/10/19 15:45 Dose: 42 mls/hr Potassium Chloride (Potassium Chloride 10 Meq Premix Ivpb -) 10 meq in 100 mls @ 100 mls/hr IVPB Q60M [facility] Stop: 04/10/19 21:14 Last Admin: 04/10/19 18:26 Dose: 100 mls/hr Lactobacillus Acidophilus (Bacid -) 1 tab PO DAILY [facility] Last Admin: 04/10/19 10:22 Dose: 1 tab Megestrol Acetate (Megace Oral Suspension -) 200 mg PO DAILY [facility] Last Admin: 04/10/19 10:21 Dose: 200 mg Memantine (Namenda -) 5 mg PO BID [facility] Last Admin: 04/10/19 10:22 Dose: 5 mg Metoprolol Succinate (Toprol Xl -) 25 mg PO BID [facility] Last Admin: 04/10/19 10:22 Dose: 25 mg Mirtazapine (Remeron -) 15 mg PO HS [facility] Last Admin: 04/09/19 22:03 Dose: Not Given Ondansetron HCl (Zofran Injection) 4 mg IVPB Q4H PRN PRN Reason: NAUSEA AND/OR VOMITING Pantoprazole Sodium (Protonix -) 40 mg PO DAILY [facility] Last Admin: 04/10/19 10:22 Dose: 40 mg Potassium Chloride (Potassium Chloride Oral Liquid) 40 meq PO BID [facility] Last Admin: 04/10/19 10:22 Dose: 40 meq - Objective Vital Signs: Vital Signs Temperature 98 F 04/10/19 14:00 Pulse Rate 70 04/10/19 14:00 Respiratory Rate 20 04/10/19 14:00 Blood Pressure 139/59 L 04/10/19 14:00 O2 Sat by Pulse Oximetry (%) 98 04/10/19 09:00 Constitutional: Yes: No Distress HENT: Yes: Atraumatic Neck: Yes: Supple Cardiovascular: Yes: Regular Rate and Rhythm Respiratory: Yes: CTA Bilaterally Gastrointestinal: Yes: Normal Bowel Sounds Extremities: Yes: WNL Edema: No Neurological: Yes: Alert, Oriented Labs: CBC, BMP 04/10/19 06:23 04/10/19 15:05 Problem List - Problems (1) LILLIE (acute kidney injury) Assessment/Plan: cr improving Code(s): N17.9 - ACUTE KIDNEY FAILURE, UNSPECIFIED (2) Elevated troponin Assessment/Plan: stable Code(s): R74.8 - ABNORMAL LEVELS OF OTHER SERUM ENZYMES (3) CHF (congestive heart failure) Code(s): I50.9 - HEART FAILURE, UNSPECIFIED (4) Dementia Code(s): F03.90 - UNSPECIFIED DEMENTIA WITHOUT BEHAVIORAL DISTURBANCE (5) GERD (gastroesophageal reflux disease) Assessment/Plan: on protonix Code(s): K21.9 - GASTRO-ESOPHAGEAL REFLUX DISEASE WITHOUT ESOPHAGITIS (6) Atrial fibrillation Assessment/Plan: on meds Code(s): I48.91 - UNSPECIFIED ATRIAL FIBRILLATION Qualifiers: Atrial fibrillation type: paroxysmal Qualified Code(s): I48.0 - Paroxysmal atrial fibrillation (7) HTN (hypertension) Assessment/Plan: on meds monitor Code(s): I10 - ESSENTIAL (PRIMARY) HYPERTENSION (8) Positive blood culture Assessment/Plan: on abx id consult Code(s): R78.81 - BACTEREMIA (9) Poor appetite Assessment/Plan: gi eval noted on megace renal dose Code(s): R63.0 - ANOREXIA (10) Hypokalemia Assessment/Plan: on supplement Code(s): E87.6 - HYPOKALEMIA (11) Dehydration Code(s): E86.0 - DEHYDRATION (12) Failure to thrive Code(s): [id number] - (13) Pacemaker Code(s): Z95.0 - PRESENCE OF CARDIAC PACEMAKER
[2019-04-10] MEDS: ATORVASTATIN CA 10 MG TABLET (FP) PO SCH (21:49)
[2019-04-10] MEDS: MIRTAZAPINE 15 MG TABLET (FP) PO SCH (21:50)
[2019-04-11] MEDS ORDERED: PT OWN MED DRAWER 7, Y5N ONE ×3 (01:49→14:52)
[2019-04-11] MEDS: KCL 10 MEQ IVPB 10 MEQ/100 ML INFUS.BAG IVPB SCH ×3 (02:10→17:45)
[2019-04-11] MEDS: AMPICILLIN - 2 GM in SODIUM CHLORIDE 100 ML IVPB SCH ×4 (03:00→21:42)
[2019-04-11] MEDS ORDERED: DEXTROSE 5%-WATER 100 ML IVPB ONE ×2 (05:57→18:02)
[2019-04-11] MEDS: CEFTRIAXONE 2 GM in DEXTROSE 5%-WATER 100 ML IVPB SCH ×2 (06:08→18:11)
[2019-04-11] MEDS: MEGESTROL ACETATE 400 MG/10 ML UNIT DOSE CUP PO SCH (09:22)
[2019-04-11] MEDS: PANTOPRAZOLE 40 MG TABLET (FP) PO SCH (09:23)
[2019-04-11] MEDS: MEMANTINE HCL 5 MG TABLET (UD) PO SCH ×2 (09:23→21:45)
[2019-04-11] MEDS: APIXABAN 2.5 MG TABLET PO SCH ×2 (09:23→21:45)
[2019-04-11] MEDS: LACTOBACILLUS ACIDOPHILUS 1 TABLET PO SCH (09:23)
[2019-04-11] MEDS: metoPROLOL SUCCINATE 25 MG TAB.SR.24H (FP) PO SCH ×2 (09:23→21:45)
[2019-04-11] MEDS: FLUoxetine HCL 20 MG CAPSULE (FP) PO SCH (09:23)
[2019-04-11] MEDS: POTASSIUM CHLORIDE ORAL LIQUID 20 MEQ/15 ML PO SCH ×2 (09:34→21:45)
--- NOTE | 2019-04-11 10:47 | PN ---
Progress Note (short form) - Note Progress Note: s: no chest pain, palps, dizziness, dyspnea. appetite is poor and feels nauseated when she eats at times. frustrated with being hospitalized no cigs Current Medications Apixaban (Eliquis -) 2.5 mg PO BID [facility] Last Admin: 04/11/19 09:23 Dose: 2.5 mg Atorvastatin Calcium (Lipitor -) 10 mg PO HS [facility] Last Admin: 04/10/19 21:49 Dose: 10 mg Fluoxetine HCl (Prozac -) 20 mg PO DAILY [facility] Last Admin: 04/11/19 09:23 Dose: 20 mg Ceftriaxone Sodium 2 gm/ (Dextrose) 100 mls @ 200 mls/hr IVPB Q12H [facility]; Protocol Last Admin: 04/11/19 06:08 Dose: 200 mls/hr Ampicillin Sodium 2 gm/ Sodium (Chloride) 100 mls @ 200 mls/hr IVPB Q6H-IV [facility] ; Protocol Last Admin: 04/11/19 03:00 Dose: 200 mls/hr Amino Acids (Clinimix -) 1,000 mls @ 42 mls/hr IV Q24H [facility] Last Admin: 04/10/19 15:45 Dose: 42 mls/hr Lactobacillus Acidophilus (Bacid -) 1 tab PO DAILY [facility] Last Admin: 04/11/19 09:23 Dose: 1 tab Megestrol Acetate (Megace Oral Suspension -) 200 mg PO DAILY [facility] Last Admin: 04/11/19 09:22 Dose: 200 mg Memantine (Namenda -) 5 mg PO BID [facility] Last Admin: 04/11/19 09:23 Dose: 5 mg Metoprolol Succinate (Toprol Xl -) 25 mg PO BID [facility] Last Admin: 04/11/19 09:23 Dose: 25 mg Mirtazapine (Remeron -) 15 mg PO HS [facility] Last Admin: 04/10/19 21:50 Dose: 15 mg Ondansetron HCl (Zofran Injection) 4 mg IVPB Q4H PRN PRN Reason: NAUSEA AND/OR VOMITING Pantoprazole Sodium (Protonix -) 40 mg PO DAILY [facility] Last Admin: 04/11/19 09:23 Dose: 40 mg Potassium Chloride (Potassium Chloride Oral Liquid) 40 meq PO BID [facility] Last Admin: 04/11/19 09:34 Dose: 40 meq Spironolactone (Aldactone -) 25 mg PO ONCE ONE Stop: 04/11/19 10:42 Vital Signs Period Temp Pulse Resp BP Sys/Rice Pulse Ox Last 24 Hr 97.5 F-98.4 F 69-72 18-20 109-139/59-89 99-99 Constitutional: Yes: No Distress, Calm Eyes: No: Sclera Icterus HENT: No: Nasal Congestion Cardiovascular: Yes: Regular Rate and Rhythm, JVD, Murmur (MR murmur unchanged) , S1, S2, Other (PMI non diplaced). No: Gallop Respiratory: Yes: CTA Bilaterally. No: Accessory Muscle Use, Mechanically Ventilated, Wheezes Gastrointestinal: Yes: Normal Bowel Sounds, Soft. No: Tenderness Musculoskeletal: Yes: Other (No kyphosis) Extremities: No: Cold, Cyanosis Edema: No Integumentary: No: Jaundice Neurological: Yes: Alert. No: Seizure Psychiatric: No: Agitated Assessment/Plan CXR: clear lungs/pleura EKG sinus, prolonged QTc 515 ms, stable compared to prior echo 03/2019 mild conc LVH, pseudonormalization, RV nl, PPM in R heart, RV function nl, LA severely dilated, mod MAC, significant prolapse vs partial flail of post mitral leaflet, severe eccentric anteriorly directed MR, mild to mod TR, RVSP elevated 40-50 mmHg, mild AR, no obvoius intracardiac vegetations seen tele: NSR, PVCs IMP/Plan: sepsis, E. faecalis bacteremia, UTI - ID input appreciated, likely urinary source - no obvious vegetation on echo. repeat bld cx ngtd. no signs of cardiogenic shock, CVA, acute HF - case has been disc'd by our team with dr art who feels that conservative mgmt with 6 wks of abx is preferable given she is hi risk for complications of VITA (including if done at [facility] [place]) and unrevealing VITA will not definitively exclude risk of SBE given in light of indwelling PM leads - cont 6 wks abx course - s/p PICC line anorexia, dehydration, hypernatremia, LILLIE: - baseline creat 1.1-1.3 - weakness, dehydration improved with IVF-->fluids stopped despite creat remains above baseline, given evidence of volume-excess - renal following - considering PEG tube - ongoing goals of care discussion with patient and daughter, plan for palliative care discussion today as well - amiodarone held and meds adjusted by psych for anorexia acute on chronic diastolic chf, severe MR: - PO lasix resumed 04/06 for evidence of volume s/p IV hydration here, wt increased 118 on admission - today 137 lbs - + JVD, mild tachypnea. wt continues to steadily increase despite lasix 40 qd, then 80 qd on 04/09. - note: prior 03/28 admit with acute CHF notes reviewed: she had previously required lasix 80 IV bid for adequate diuresis here, had been sent out on lasix 80 bid in [place] (incorrectly listed as 40 bid in admit notes then)--sent out with rec for 80 bid last time (again notes incorrectly list 40 bid). 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 anorexia s.e.) -incr metoprolol to 25 bid (low bp's during active diuresis previously) -cont eliquis 2.5 bid--adjusted for age, weight anemia: -hgb stable -monitor trends and stools -cont AC for now VTach: -NSVT on tele during prior admissions -K/Mag per usual aggressive targets (08/09) -low dose BB as soft bp's allow hld: -cont home statin Progressive Cognitive decline: -Followed by Neuro as outpt
[2019-04-11] MEDS ORDERED: SPIRONOLACTONE 25 MG TABLET (FP) PO ONE (11:00)
--- NOTE | 2019-04-11 11:05 | PN ---
Progress Note, [employer] - Note Progress Note: Selected Entries 04/09/19 04/09/19 04/09/19 02:00 05:47 10:00 Breakfast 25% Lunch Temperature 97.7 F 97.5 F L 98.2 F 04/09/19 04/09/19 04/09/19 14:00 18:00 20:14 Breakfast Lunch 0 Temperature 97.5 F L 97.4 F L 97.5 F L Laboratory Tests 04/10/19 06:23 WBC 10.1 H Selected Entries 04/10/19 04/10/19 04/10/19 10:00 11:46 14:00 Breakfast 25% Supper Temperature 97.2 F L 98 F 04/10/19 04/10/19 04/11/19 18:00 22:00 02:00 Breakfast Supper 0 Temperature 97.6 F 98.4 F 97.5 F L 04/11/19 04/11/19 05:40 10:00 Breakfast 25% Supper Temperature 98 F 97.8 F Laboratory Tests 04/10/19 06:23 WBC 10.1 H Eating poorly, just a few bites. Suggest counting # of ensure pt is drinking daily to determine if pt is receiving sufficient calories via ensure.
[2019-04-11 11:51] LABS: BLOOD UREA NITROGEN 44.7 mg/dL (7-18); CREATININE 1.6 mg/dL (0.55-1.3); MAGNESIUM 2.1 mg/dL (1.8-2.4); POTASSIUM 3.2 mmol/L (3.5-5.1)
--- NOTE | 2019-04-11 15:19 | PN ---
Progress Note, Physician History of Present Illness: Pt seen and examined at bedside. She is awake but confused. She is asking to go home. - Current Medication List Current Medications: Active Medications Apixaban (Eliquis -) 2.5 mg PO BID [facility] Last Admin: 04/11/19 09:23 Dose: 2.5 mg Atorvastatin Calcium (Lipitor -) 10 mg PO HS [facility] Last Admin: 04/10/19 21:49 Dose: 10 mg Fluoxetine HCl (Prozac -) 20 mg PO DAILY [facility] Last Admin: 04/11/19 09:23 Dose: 20 mg Ceftriaxone Sodium 2 gm/ (Dextrose) 100 mls @ 200 mls/hr IVPB Q12H [facility]; Protocol Last Admin: 04/11/19 06:08 Dose: 200 mls/hr Ampicillin Sodium 2 gm/ Sodium (Chloride) 100 mls @ 200 mls/hr IVPB Q6H-IV [facility] ; Protocol Last Admin: 04/11/19 14:57 Dose: 200 mls/hr Lactobacillus Acidophilus (Bacid -) 1 tab PO DAILY [facility] Last Admin: 04/11/19 09:23 Dose: 1 tab Megestrol Acetate (Megace Oral Suspension -) 200 mg PO DAILY [facility] Last Admin: 04/11/19 09:22 Dose: 200 mg Memantine (Namenda -) 5 mg PO BID [facility] Last Admin: 04/11/19 09:23 Dose: 5 mg Metoprolol Succinate (Toprol Xl -) 25 mg PO BID [facility] Last Admin: 04/11/19 09:23 Dose: 25 mg Mirtazapine (Remeron -) 15 mg PO HS [facility] Last Admin: 04/10/19 21:50 Dose: 15 mg Ondansetron HCl (Zofran Injection) 4 mg IVPB Q4H PRN PRN Reason: NAUSEA AND/OR VOMITING Pantoprazole Sodium (Protonix -) 40 mg PO DAILY [facility] Last Admin: 04/11/19 09:23 Dose: 40 mg Potassium Chloride (Potassium Chloride Oral Liquid) 40 meq PO BID [facility] Last Admin: 04/11/19 09:34 Dose: 40 meq - Objective Vital Signs: Vital Signs Temperature 97.8 F 04/11/19 10:00 Pulse Rate 72 04/11/19 10:00 Respiratory Rate 18 04/11/19 02:00 Blood Pressure 122/72 04/11/19 10:00 O2 Sat by Pulse Oximetry (%) 99 04/11/19 09:00 Constitutional: Yes: Calm, Mild Distress Eyes: Yes: Conjunctiva Clear HENT: Yes: Atraumatic Cardiovascular: Yes: S1, S2 Respiratory: Yes: On Nasal O2, Tachypnea Gastrointestinal: Yes: Soft Genitourinary: Yes: Incontinence Musculoskeletal: Yes: Muscle Weakness Edema: LLE: Trace, RLE: Trace Neurological: Yes: Confusion Labs: CBC, BMP 04/10/19 06:23 04/11/19 10:45 Problem List - Problems (1) LILLIE (acute kidney injury) Code(s): N17.9 - ACUTE KIDNEY FAILURE, UNSPECIFIED (2) Hypernatremia Code(s): E87.0 - HYPEROSMOLALITY AND HYPERNATREMIA Assessment/Plan Current Medications Generic Name Dose Route Start Last Admin Trade Name Freq PRN Reason Stop Dose Admin Apixaban 2.5 mg 03/27/19 22:00 04/11/19 09:23 Eliquis - PO 2.5 mg BID [facility] Administration Atorvastatin Calcium 10 mg 03/27/19 22:00 04/10/19 21:49 Lipitor - PO 10 mg HS [facility] Administration Fluoxetine HCl 20 mg 03/28/19 13:00 04/11/19 09:23 Prozac - PO 20 mg DAILY [facility] Administration Ceftriaxone Sodium 2 gm/ 100 mls @ 200 mls/hr 03/30/19 18:00 04/11/19 06:08 Dextrose IVPB 200 mls/hr Q12H [facility] Administration Protocol Ampicillin Sodium 2 gm/ Sodium 100 mls @ 200 mls/hr 03/31/19 15:00 04/11/19 14:57 Chloride IVPB 200 mls/hr Q6H-IV [facility] Administration Protocol Potassium Chloride 10 meq in 100 mls @ 100 mls/hr 04/11/19 15:15 Potassium Chloride 10 Meq Premix Ivpb - IVPB 04/11/19 17:14 Q60M [facility] Lactobacillus Acidophilus 1 tab 03/31/19 12:00 04/11/19 09:23 Bacid - PO 1 tab DAILY [facility] Administration Megestrol Acetate 200 mg 04/09/19 15:30 04/11/19 09:22 Megace Oral Suspension - PO 200 mg DAILY [facility] Administration Memantine 5 mg 03/27/19 22:00 04/11/19 09:23 Namenda - PO 5 mg BID [facility] Administration Metoprolol Succinate 25 mg 04/09/19 10:15 04/11/19 09:23 Toprol Xl - PO 25 mg BID [facility] Administration Mirtazapine 15 mg 03/28/19 22:00 04/10/19 21:50 Remeron - PO 15 mg HS [facility] Administration Ondansetron HCl 4 mg 04/08/19 15:37 Zofran Injection IVPB Q4H PRN NAUSEA AND/OR VOMITING Pantoprazole Sodium 40 mg 03/28/19 13:00 04/11/19 09:23 Protonix - PO 40 mg DAILY [facility] Administration Potassium Chloride 40 meq 04/09/19 22:00 04/11/19 09:34 Potassium Chloride Oral Liquid PO 40 meq BID [facility] Administration Impression 1. LILLIE 2. chf 3. mitral regurg 4. dementia 5. a-fib 6. hld 7. solitary right kidney 8. UTI 9. right side hydro 10. bacteremia 11. hypernatremia 12. hypokalemia Plan - replace potassium - change lasix to aldactone - discussed with cardio - repeat labs - discussed with family - d/c clinimix as she is overloaded
--- NOTE | 2019-04-11 16:52 | PN ---
Progress Note, Physician - Current Medication List Current Medications: Active Medications Apixaban (Eliquis -) 2.5 mg PO BID [facility] Last Admin: 04/11/19 09:23 Dose: 2.5 mg Atorvastatin Calcium (Lipitor -) 10 mg PO HS [facility] Last Admin: 04/10/19 21:49 Dose: 10 mg Fluoxetine HCl (Prozac -) 20 mg PO DAILY [facility] Last Admin: 04/11/19 09:23 Dose: 20 mg Ceftriaxone Sodium 2 gm/ (Dextrose) 100 mls @ 200 mls/hr IVPB Q12H [facility]; Protocol Last Admin: 04/11/19 06:08 Dose: 200 mls/hr Ampicillin Sodium 2 gm/ Sodium (Chloride) 100 mls @ 200 mls/hr IVPB Q6H-IV [facility] ; Protocol Last Admin: 04/11/19 14:57 Dose: 200 mls/hr Potassium Chloride (Potassium Chloride 10 Meq Premix Ivpb -) 10 meq in 100 mls @ 100 mls/hr IVPB Q60M [facility] Stop: 04/11/19 17:14 Last Admin: 04/11/19 16:15 Dose: 100 mls/hr Lactobacillus Acidophilus (Bacid -) 1 tab PO DAILY [facility] Last Admin: 04/11/19 09:23 Dose: 1 tab Megestrol Acetate (Megace Oral Suspension -) 200 mg PO DAILY [facility] Last Admin: 04/11/19 09:22 Dose: 200 mg Memantine (Namenda -) 5 mg PO BID [facility] Last Admin: 04/11/19 09:23 Dose: 5 mg Metoprolol Succinate (Toprol Xl -) 25 mg PO BID [facility] Last Admin: 04/11/19 09:23 Dose: 25 mg Mirtazapine (Remeron -) 15 mg PO HS [facility] Last Admin: 04/10/19 21:50 Dose: 15 mg Ondansetron HCl (Zofran Injection) 4 mg IVPB Q4H PRN PRN Reason: NAUSEA AND/OR VOMITING Pantoprazole Sodium (Protonix -) 40 mg PO DAILY [facility] Last Admin: 04/11/19 09:23 Dose: 40 mg Potassium Chloride (Potassium Chloride Oral Liquid) 40 meq PO BID [facility] Last Admin: 04/11/19 09:34 Dose: 40 meq - Objective Vital Signs: Vital Signs Temperature 97.8 F 04/11/19 10:00 Pulse Rate 74 04/11/19 15:52 Respiratory Rate 18 04/11/19 02:00 Blood Pressure 120/82 04/11/19 15:52 O2 Sat by Pulse Oximetry (%) 99 04/11/19 09:00 Constitutional: Yes: No Distress HENT: Yes: Atraumatic Neck: Yes: Supple Cardiovascular: Yes: Regular Rate and Rhythm Respiratory: Yes: CTA Bilaterally Gastrointestinal: Yes: Normal Bowel Sounds Extremities: Yes: WNL Edema: No Peripheral Pulses WNL: Yes Neurological: Yes: Alert, Oriented Labs: CBC, BMP 04/10/19 06:23 04/11/19 10:45 Problem List - Problems (1) LILLIE (acute kidney injury) Assessment/Plan: cr improving Code(s): N17.9 - ACUTE KIDNEY FAILURE, UNSPECIFIED (2) Elevated troponin Assessment/Plan: stable Code(s): R74.8 - ABNORMAL LEVELS OF OTHER SERUM ENZYMES (3) CHF (congestive heart failure) Code(s): I50.9 - HEART FAILURE, UNSPECIFIED (4) Dementia Code(s): F03.90 - UNSPECIFIED DEMENTIA WITHOUT BEHAVIORAL DISTURBANCE (5) GERD (gastroesophageal reflux disease) Assessment/Plan: on protonix Code(s): K21.9 - GASTRO-ESOPHAGEAL REFLUX DISEASE WITHOUT ESOPHAGITIS (6) Atrial fibrillation Code(s): I48.91 - UNSPECIFIED ATRIAL FIBRILLATION Qualifiers: Atrial fibrillation type: paroxysmal Qualified Code(s): I48.0 - Paroxysmal atrial fibrillation (7) HTN (hypertension) Code(s): I10 - ESSENTIAL (PRIMARY) HYPERTENSION (8) Positive blood culture Code(s): R78.81 - BACTEREMIA (9) Poor appetite Code(s): R63.0 - ANOREXIA (10) Hypokalemia Code(s): E87.6 - HYPOKALEMIA (11) Dehydration Code(s): E86.0 - DEHYDRATION (12) Failure to thrive Code(s): [id number] - (13) Pacemaker Code(s): Z95.0 - PRESENCE OF CARDIAC PACEMAKER (14) Feeding difficulty in elderly Assessment/Plan: on ensure calorie count Code(s): R63.3 - FEEDING DIFFICULTIES
--- NOTE | 2019-04-11 18:04 | PN.GI ---
GI Progress Note Subjective: No acute events Short of breath Tolerating Ensure Clears - Objective Vital Signs: Vital Signs Temperature 97.8 F 04/11/19 10:00 Pulse Rate 74 04/11/19 15:52 Respiratory Rate 18 04/11/19 02:00 Blood Pressure 120/82 04/11/19 15:52 O2 Sat by Pulse Oximetry (%) 99 04/11/19 09:00 Constitutional: Calm Eyes: No: Sclera Icterus Cardiovascular: Yes: Regular Rate and Rhythm, Murmur (2/6 systolic murmur) Respiratory: Yes: Diminished (at bases b/l), Tachypnea Gastrointestinal Inspection: No: Distention ...Auscultate: Yes: Normoactive Bowel Sounds ...Palpate: Yes: Soft. No: Hepatomegaly, Splenomegaly, Tenderness Neurological: Yes: Alert Labs: CBC, BMP 04/10/19 06:23 04/11/19 10:45 Hepatic Panel Total Bilirubin 0.2 mg/dL (0.2-1) 04/10/19 06:23 AST 40 U/L (15-37) H 04/10/19 06:23 ALT 45 U/L (13-61) 04/10/19 06:23 Alkaline Phosphatase 130 U/L (45-117) H 04/10/19 06:23 Albumin 1.8 g/dl (3.4-5.0) L 04/10/19 06:23 Problem List - Problems (1) Failure to thrive Assessment/Plan: Consider calorie count Decision to be made regarding feeding tube if fails calorie count (IR placed) Medication elimination as feasible Code(s): [id number] - (2) Abnormal liver function test Assessment/Plan: Ordered abdominal ultrasound Avoid hepatotoxic agents Code(s): R94.5 - ABNORMAL RESULTS OF LIVER FUNCTION STUDIES
[2019-04-11] MEDS: MIRTAZAPINE 15 MG TABLET (FP) PO SCH (21:45)
[2019-04-11] MEDS: ATORVASTATIN CA 10 MG TABLET (FP) PO SCH (21:45)
[2019-04-12] MEDS: AMPICILLIN - 2 GM in SODIUM CHLORIDE 100 ML IVPB SCH ×4 (03:54→21:15)
[2019-04-12] MEDS ORDERED: DEXTROSE 5%-WATER 100 ML IVPB ONE (05:54)
[2019-04-12] MEDS: CEFTRIAXONE 2 GM in DEXTROSE 5%-WATER 100 ML IVPB SCH (05:56)
[2019-04-12 07:03] LABS: ALBUMIN 1.9 g/dl (3.4-5.0); BILIRUBIN,TOTAL 0.4 mg/dL (0.2-1); BLOOD UREA NITROGEN 55.4 mg/dL (7-18); CALCIUM 7.9 mg/dL (8.5-10.1); CREATININE 1.7 mg/dL (0.55-1.3); POTASSIUM 3.2 mmol/L (3.5-5.1); TOT PROT 5.9 g/dl (6.4-8.2)
[2019-04-12] MEDS ORDERED: PT OWN MED DRAWER 7, Y5N ONE ×4 (10:16→20:49)
--- NOTE | 2019-04-12 10:37 | PN ---
Progress Note (short form) - Note Progress Note: s: no chest pain, palps, dizziness, dyspnea. appetite is poor and feels nauseated when she eats at times. frustrated with being hospitalized Current Medications Apixaban (Eliquis -) 2.5 mg PO BID [facility] Last Admin: 04/11/19 21:45 Dose: 2.5 mg Atorvastatin Calcium (Lipitor -) 10 mg PO HS [facility] Last Admin: 04/11/19 21:45 Dose: 10 mg Fluoxetine HCl (Prozac -) 20 mg PO DAILY [facility] Last Admin: 04/11/19 09:23 Dose: 20 mg Ceftriaxone Sodium 2 gm/ (Dextrose) 100 mls @ 200 mls/hr IVPB Q12H [facility]; Protocol Last Admin: 04/12/19 05:56 Dose: 200 mls/hr Ampicillin Sodium 2 gm/ Sodium (Chloride) 100 mls @ 200 mls/hr IVPB Q6H-IV [facility] ; Protocol Last Admin: 04/12/19 03:54 Dose: 200 mls/hr Lactobacillus Acidophilus (Bacid -) 1 tab PO DAILY [facility] Last Admin: 04/11/19 09:23 Dose: 1 tab Megestrol Acetate (Megace Oral Suspension -) 200 mg PO DAILY [facility] Last Admin: 04/11/19 09:22 Dose: 200 mg Memantine (Namenda -) 5 mg PO BID [facility] Last Admin: 04/11/19 21:45 Dose: 5 mg Metoprolol Succinate (Toprol Xl -) 25 mg PO BID [facility] Last Admin: 04/11/19 21:45 Dose: 25 mg Mirtazapine (Remeron -) 15 mg PO HS [facility] Last Admin: 04/11/19 21:45 Dose: 15 mg Ondansetron HCl (Zofran Injection) 4 mg IVPB Q4H PRN PRN Reason: NAUSEA AND/OR VOMITING Pantoprazole Sodium (Protonix -) 40 mg PO DAILY [facility] Last Admin: 04/11/19 09:23 Dose: 40 mg Potassium Chloride (Potassium Chloride Oral Liquid) 40 meq PO BID [facility] Last Admin: 04/11/19 21:45 Dose: 40 meq Spironolactone (Aldactone -) 25 mg PO DAILY [facility] Vital Signs Period Temp Pulse Resp BP Sys/Rice Pulse Ox Last 24 Hr 96.7 F-97.5 F 65-74 18-18 101-120/58-82 100 Constitutional: Yes: No Distress, Calm Eyes: No: Sclera Icterus HENT: No: Nasal Congestion Cardiovascular: Yes: Regular Rate and Rhythm, JVD, Murmur (MR murmur unchanged) , S1, S2, Other (PMI non diplaced). No: Gallop Respiratory: Yes: CTA Bilaterally. No: Accessory Muscle Use, Mechanically Ventilated, Wheezes Gastrointestinal: Yes: Normal Bowel Sounds, Soft. No: Tenderness Musculoskeletal: Yes: Other (No kyphosis) Extremities: No: Cold, Cyanosis Edema: No Integumentary: No: Jaundice Neurological: Yes: Alert. No: Seizure Psychiatric: No: Agitated Assessment/Plan CXR: clear lungs/pleura EKG sinus, prolonged QTc 515 ms, stable compared to prior echo 03/2019 mild conc LVH, pseudonormalization, RV nl, PPM in R heart, RV function nl, LA severely dilated, mod MAC, significant prolapse vs partial flail of post mitral leaflet, severe eccentric anteriorly directed MR, mild to mod TR, RVSP elevated 40-50 mmHg, mild AR, no obvoius intracardiac vegetations seen tele: NSR, PVCs IMP/Plan: sepsis, E. faecalis bacteremia, UTI - ID input appreciated, likely urinary source - no obvious vegetation on echo. repeat bld cx ngtd. no signs of cardiogenic shock, CVA, acute HF - case has been disc'd by our team with dr art who feels that conservative mgmt with 6 wks of abx is preferable given she is hi risk for complications of VITA (including if done at [facility]) and unrevealing VITA will not definitively exclude risk of SBE given in light of indwelling PM leads - cont 6 wks abx course - s/p PICC line anorexia, dehydration, hypernatremia, LILLIE: - baseline creat 1.1-1.3 - weakness, dehydration improved with IVF-->fluids stopped despite creat remains above baseline, given evidence of volume-excess - renal following - considering PEG tube - ongoing goals of care discussion with patient and daughter, plan for family meeting this afternoon with palliative care - amiodarone held and meds adjusted by psych for anorexia acute on chronic diastolic chf, severe MR: - PO lasix resumed 04/06 for evidence of volume s/p IV hydration here, wt increased 118 on admission - today 137 lbs - + JVD, mild tachypnea. wt continues to steadily increase despite lasix 40 qd, then 80 qd on 04/09. - note: prior 03/28 admit with acute CHF notes reviewed: she had previously required lasix 80 IV bid for adequate diuresis here, had been sent out on lasix 80 bid in [place] (incorrectly listed as 40 bid in admit notes then)--sent out with rec for 80 bid last time (again notes incorrectly list 40 bid). 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 anorexia s.e.) -incr metoprolol to 25 bid (low bp's during active diuresis previously) -cont eliquis 2.5 bid--adjusted for age, weight anemia: -hgb stable -monitor trends and stools -cont AC for now VTach: -NSVT on tele during prior admissions -K/Mag per usual aggressive targets (08/09) -low dose BB as soft bp's allow hld: -cont home statin Progressive Cognitive decline: -Followed by Neuro as outpt
--- NOTE | 2019-04-12 11:00 | PN ---
Progress Note, RN PARALEGAL - Note Progress Note: Selected Entries 04/11/19 04/11/19 04/11/19 02:00 05:40 10:00 Breakfast 25% Supper Temperature 97.5 F L 98 F 97.8 F 04/11/19 04/11/19 04/12/19 18:00 22:00 02:00 Breakfast Supper 25% Temperature 97.3 F L 97.3 F L 96.7 F L 04/12/19 06:00 Breakfast Supper Temperature 97.5 F L Laboratory Tests 04/10/19 06:23 WBC 10.1 H Nauseated with solids but tolerating Ensure clears. NPO for u/s Agree with calorie count regarding decision to be made regarding feeding tube if fails calorie count (IR placed)- Please include Ensure clear in calorie count
--- NOTE | 2019-04-12 13:36 | PN ---
Progress Note, Physician History of Present Illness: Pt seen and examined at bedside. She is awake but confused. - Current Medication List Current Medications: Active Medications Apixaban (Eliquis -) 2.5 mg PO BID [facility] Last Admin: 04/11/19 21:45 Dose: 2.5 mg Atorvastatin Calcium (Lipitor -) 10 mg PO HS [facility] Last Admin: 04/11/19 21:45 Dose: 10 mg Fluoxetine HCl (Prozac -) 20 mg PO DAILY [facility] Last Admin: 04/11/19 09:23 Dose: 20 mg Ceftriaxone Sodium 2 gm/ (Dextrose) 100 mls @ 200 mls/hr IVPB Q12H [facility]; Protocol Last Admin: 04/12/19 05:56 Dose: 200 mls/hr Ampicillin Sodium 2 gm/ Sodium (Chloride) 100 mls @ 200 mls/hr IVPB Q6H-IV [facility] ; Protocol Last Admin: 04/12/19 03:54 Dose: 200 mls/hr Lactobacillus Acidophilus (Bacid -) 1 tab PO DAILY [facility] Last Admin: 04/11/19 09:23 Dose: 1 tab Megestrol Acetate (Megace Oral Suspension -) 200 mg PO DAILY [facility] Last Admin: 04/11/19 09:22 Dose: 200 mg Memantine (Namenda -) 5 mg PO BID [facility] Last Admin: 04/11/19 21:45 Dose: 5 mg Metoprolol Succinate (Toprol Xl -) 25 mg PO BID [facility] Last Admin: 04/11/19 21:45 Dose: 25 mg Mirtazapine (Remeron -) 15 mg PO HS [facility] Last Admin: 04/11/19 21:45 Dose: 15 mg Ondansetron HCl (Zofran Injection) 4 mg IVPB Q4H PRN PRN Reason: NAUSEA AND/OR VOMITING Pantoprazole Sodium (Protonix -) 40 mg PO DAILY [facility] Last Admin: 04/11/19 09:23 Dose: 40 mg Potassium Chloride (Potassium Chloride Oral Liquid) 40 meq PO BID [facility] Last Admin: 04/11/19 21:45 Dose: 40 meq Spironolactone (Aldactone -) 25 mg PO DAILY [facility] - Objective Vital Signs: Vital Signs Temperature 97.5 F L 04/12/19 06:00 Pulse Rate 68 04/12/19 10:00 Respiratory Rate 18 04/12/19 10:00 Blood Pressure 119/76 04/12/19 10:00 O2 Sat by Pulse Oximetry (%) 99 04/12/19 09:00 Constitutional: Yes: Calm Eyes: Yes: Conjunctiva Clear HENT: Yes: Atraumatic Neck: Yes: Supple Cardiovascular: Yes: S1, S2 Respiratory: Yes: On Nasal O2 Gastrointestinal: Yes: Soft Genitourinary: Yes: Incontinence Musculoskeletal: Yes: Muscle Weakness Edema: No Neurological: Yes: Confusion Labs: CBC, BMP 04/10/19 06:23 04/12/19 06:07 Problem List - Problems (1) LILLIE (acute kidney injury) Code(s): N17.9 - ACUTE KIDNEY FAILURE, UNSPECIFIED (2) Hypernatremia Code(s): E87.0 - HYPEROSMOLALITY AND HYPERNATREMIA Assessment/Plan Current Medications Generic Name Dose Route Start Last Admin Trade Name Freq PRN Reason Stop Dose Admin Apixaban 2.5 mg 03/27/19 22:00 04/11/19 21:45 Eliquis - PO 2.5 mg BID [facility] Administration Atorvastatin Calcium 10 mg 03/27/19 22:00 04/11/19 21:45 Lipitor - PO 10 mg HS [facility] Administration Fluoxetine HCl 20 mg 03/28/19 13:00 04/11/19 09:23 Prozac - PO 20 mg DAILY [facility] Administration Ceftriaxone Sodium 2 gm/ 100 mls @ 200 mls/hr 03/30/19 18:00 04/12/19 05:56 Dextrose IVPB 200 mls/hr Q12H [facility] Administration Protocol Ampicillin Sodium 2 gm/ Sodium 100 mls @ 200 mls/hr 03/31/19 15:00 04/12/19 03:54 Chloride IVPB 200 mls/hr Q6H-IV [facility] Administration Protocol Lactobacillus Acidophilus 1 tab 03/31/19 12:00 04/11/19 09:23 Bacid - PO 1 tab DAILY [facility] Administration Megestrol Acetate 200 mg 04/09/19 15:30 04/11/19 09:22 Megace Oral Suspension - PO 200 mg DAILY [facility] Administration Memantine 5 mg 03/27/19 22:00 04/11/19 21:45 Namenda - PO 5 mg BID [facility] Administration Metoprolol Succinate 25 mg 04/09/19 10:15 04/11/19 21:45 Toprol Xl - PO 25 mg BID [facility] Administration Mirtazapine 15 mg 03/28/19 22:00 04/11/19 21:45 Remeron - PO 15 mg HS [facility] Administration Ondansetron HCl 4 mg 04/08/19 15:37 Zofran Injection IVPB Q4H PRN NAUSEA AND/OR VOMITING Pantoprazole Sodium 40 mg 03/28/19 13:00 04/11/19 09:23 Protonix - PO 40 mg DAILY [facility] Administration Potassium Chloride 40 meq 04/09/19 22:00 04/11/19 21:45 Potassium Chloride Oral Liquid PO 40 meq BID [facility] Administration Spironolactone 25 mg 04/12/19 10:45 Aldactone - PO DAILY [facility] Impression 1. LILLIE 2. chf 3. mitral regurg 4. dementia 5. a-fib 6. hld 7. solitary right kidney 8. UTI 9. right side hydro 10. bacteremia 11. hypernatremia 12. hypokalemia Plan - cont aldactone - monitor weights - can increase dose if needed - cardio follow up - encourage PO intake
[2019-04-12] MEDS: POTASSIUM CHLORIDE ORAL LIQUID 20 MEQ/15 ML PO SCH ×2 (14:06→21:27)
[2019-04-12] MEDS: APIXABAN 2.5 MG TABLET PO SCH ×2 (14:06→21:18)
[2019-04-12] MEDS: PANTOPRAZOLE 40 MG TABLET (FP) PO SCH (14:07)
[2019-04-12] MEDS: metoPROLOL SUCCINATE 25 MG TAB.SR.24H (FP) PO SCH ×2 (14:07→21:18)
[2019-04-12] MEDS: MEMANTINE HCL 5 MG TABLET (UD) PO SCH ×2 (14:07→21:18)
[2019-04-12] MEDS: FLUoxetine HCL 20 MG CAPSULE (FP) PO SCH (14:07)
[2019-04-12] MEDS: LACTOBACILLUS ACIDOPHILUS 1 TABLET PO SCH (14:07)
[2019-04-12] MEDS: SPIRONOLACTONE 25 MG TABLET (FP) PO SCH (14:17)
--- NOTE | 2019-04-12 15:08 | PN ---
Progress Note (short form) - Note Progress Note: remains fatigued eating poorly Vital Signs Period Temp Pulse Resp BP Sys/Rice Pulse Ox Last 24 Hr 96.7 F-97.5 F 65-74 18-18 101-120/58-82 99-100 cor-rrr murmur unchanged lungs clear abd soft,nt ext no edema CBC, BMP 04/10/19 06:23 04/12/19 06:07 Microbiology 03/28/19 17:00 Blood - Peripheral Venous Blood Culture - Final NO GROWTH AFTER 5 DAYS INCUBATION 03/28/19 17:00 Blood - Peripheral Venous Blood Culture - Final NO GROWTH AFTER 5 DAYS INCUBATION 03/27/19 15:55 Blood - Peripheral Venous Blood Culture - Final Enterococcus Faecalis 03/27/19 15:55 Blood - Peripheral Venous Blood Culture - Final Enterococcus Faecalis 03/27/19 16:34 Urine - Urine Clean Catch Urine Culture - Final Contaminated: Please Repeat Laboratory Tests 03/28/19 03/29/19 04/12/19 17:00 06:08 06:07 AST 146 H ALT 125 H Alkaline Phosphatase 322 H Random Vancomycin 16.0 L 12.9 L echo+valvular disease, no obvious vegetations noted a/p enterococcal bacteremia-cannot r/o endocarditis with valvular heart disease and PPM pyuria on admission valvular heart disease PPM lillie/ckd- continue ampicillin- day #16 abnl lfts- ?ceftriaxone -will d/c and f/u lfts on probiotics as well Problem List - Problems (1) Positive blood culture Code(s): R78.81 - BACTEREMIA (2) LILLIE (acute kidney injury) Code(s): N17.9 - ACUTE KIDNEY FAILURE, UNSPECIFIED (3) Mitral valve regurgitation Code(s): I34.0 - NONRHEUMATIC MITRAL (VALVE) INSUFFICIENCY (4) Pacemaker Code(s): Z95.0 - PRESENCE OF CARDIAC PACEMAKER
--- NOTE | 2019-04-12 15:42 | EKG ---
Test Reason : Blood Pressure : / mmHG Vent. Rate : 072 BPM Atrial Rate : 072 BPM P-R Int : 140 ms QRS Dur : 098 ms QT Int : 458 ms P-R-T Axes : 067 055 -06 degrees QTc Int : 501 ms SINUS RHYTHM WITH OCCASIONAL PREMATURE VENTRICULAR COMPLEXES NONSPECIFIC ST AND T WAVE ABNORMALITY PROLONGED QT ABNORMAL ECG WHEN COMPARED WITH ECG OF 27-MAR-2019 18:08, PREMATURE VENTRICULAR COMPLEXES ARE NOW PRESENT INVERTED T WAVES HAVE REPLACED NONSPECIFIC T WAVE ABNORMALITY IN INFERIOR LEADS T WAVE INVERSION NOW EVIDENT IN ANTERIOR LEADS Confirmed by KEYLA NDIAYE, DARNELL ([id number]) on 04/12/2019 3:42:09 PM Referred By: Confirmed By:DARNELL RAMIRES MD
[2019-04-12] MEDS: MEGESTROL ACETATE 400 MG/10 ML UNIT DOSE CUP PO SCH (15:45)
--- NOTE | 2019-04-12 19:32 | PN ---
Progress Note, Physician - Current Medication List Current Medications: Active Medications Apixaban (Eliquis -) 2.5 mg PO BID [facility] Last Admin: 04/12/19 14:06 Dose: 2.5 mg Atorvastatin Calcium (Lipitor -) 10 mg PO HS [facility] Last Admin: 04/11/19 21:45 Dose: 10 mg Fluoxetine HCl (Prozac -) 20 mg PO DAILY [facility] Last Admin: 04/12/19 14:07 Dose: 20 mg Ampicillin Sodium 2 gm/ Sodium (Chloride) 100 mls @ 200 mls/hr IVPB Q6H-IV [facility] ; Protocol Last Admin: 04/12/19 18:03 Dose: 200 mls/hr Lactobacillus Acidophilus (Bacid -) 1 tab PO DAILY [facility] Last Admin: 04/12/19 14:07 Dose: 1 tab Megestrol Acetate (Megace Oral Suspension -) 200 mg PO DAILY [facility] Last Admin: 04/12/19 15:45 Dose: 200 mg Memantine (Namenda -) 5 mg PO BID [facility] Last Admin: 04/12/19 14:07 Dose: 5 mg Metoprolol Succinate (Toprol Xl -) 25 mg PO BID [facility] Last Admin: 04/12/19 14:07 Dose: 25 mg Mirtazapine (Remeron -) 15 mg PO HS [facility] Last Admin: 04/11/19 21:45 Dose: 15 mg Ondansetron HCl (Zofran Injection) 4 mg IVPB Q4H PRN PRN Reason: NAUSEA AND/OR VOMITING Pantoprazole Sodium (Protonix -) 40 mg PO DAILY [facility] Last Admin: 04/12/19 14:07 Dose: 40 mg Potassium Chloride (Potassium Chloride Oral Liquid) 40 meq PO BID [facility] Last Admin: 04/12/19 14:06 Dose: 40 meq Spironolactone (Aldactone -) 25 mg PO DAILY [facility] Last Admin: 04/12/19 14:17 Dose: 25 mg - Objective Vital Signs: Vital Signs Temperature 98.2 F 04/12/19 14:00 Pulse Rate 68 04/12/19 14:00 Respiratory Rate 18 04/12/19 10:00 Blood Pressure 118/63 04/12/19 14:00 O2 Sat by Pulse Oximetry (%) 99 04/12/19 09:00 Constitutional: Yes: No Distress HENT: Yes: Atraumatic Neck: Yes: Supple Cardiovascular: Yes: Regular Rate and Rhythm Respiratory: Yes: CTA Bilaterally Gastrointestinal: Yes: Normal Bowel Sounds Extremities: Yes: WNL Edema: No Neurological: Yes: Alert, Oriented Labs: CBC, BMP 04/10/19 06:23 04/12/19 06:07 Problem List - Problems (1) LILLIE (acute kidney injury) Assessment/Plan: cr improving Code(s): N17.9 - ACUTE KIDNEY FAILURE, UNSPECIFIED (2) Elevated troponin Assessment/Plan: stable Code(s): R74.8 - ABNORMAL LEVELS OF OTHER SERUM ENZYMES (3) CHF (congestive heart failure) Code(s): I50.9 - HEART FAILURE, UNSPECIFIED (4) Dementia Code(s): F03.90 - UNSPECIFIED DEMENTIA WITHOUT BEHAVIORAL DISTURBANCE (5) GERD (gastroesophageal reflux disease) Assessment/Plan: on protonix Code(s): K21.9 - GASTRO-ESOPHAGEAL REFLUX DISEASE WITHOUT ESOPHAGITIS (6) Atrial fibrillation Assessment/Plan: on meds Code(s): I48.91 - UNSPECIFIED ATRIAL FIBRILLATION Qualifiers: Atrial fibrillation type: paroxysmal Qualified Code(s): I48.0 - Paroxysmal atrial fibrillation (7) HTN (hypertension) Code(s): I10 - ESSENTIAL (PRIMARY) HYPERTENSION (8) Positive blood culture Code(s): R78.81 - BACTEREMIA (9) Poor appetite Code(s): R63.0 - ANOREXIA (10) Hypokalemia Code(s): E87.6 - HYPOKALEMIA (11) Dehydration Code(s): E86.0 - DEHYDRATION (12) Failure to thrive Code(s): [id number] - (13) Pacemaker Code(s): Z95.0 - PRESENCE OF CARDIAC PACEMAKER (14) Feeding difficulty in elderly Code(s): R63.3 - FEEDING DIFFICULTIES
[2019-04-12] MEDS: MIRTAZAPINE 15 MG TABLET (FP) PO SCH (21:18)
[2019-04-12] MEDS: ATORVASTATIN CA 10 MG TABLET (FP) PO SCH (21:18)
[2019-04-13] MEDS: AMPICILLIN - 2 GM in SODIUM CHLORIDE 100 ML IVPB SCH ×4 (03:36→21:04)
[2019-04-13] MEDS ORDERED: PT OWN MED DRAWER 7, Y5N ONE ×2 (09:51→14:57)
[2019-04-13] MEDS: LACTOBACILLUS ACIDOPHILUS 1 TABLET PO SCH (10:18)
[2019-04-13] MEDS: metoPROLOL SUCCINATE 25 MG TAB.SR.24H (FP) PO SCH ×2 (10:18→21:07)
[2019-04-13] MEDS: MEMANTINE HCL 5 MG TABLET (UD) PO SCH ×2 (10:18→21:07)
[2019-04-13] MEDS: FLUoxetine HCL 20 MG CAPSULE (FP) PO SCH (10:18)
[2019-04-13] MEDS: SPIRONOLACTONE 25 MG TABLET (FP) PO SCH (10:18)
[2019-04-13] MEDS: PANTOPRAZOLE 40 MG TABLET (FP) PO SCH (10:18)
[2019-04-13] MEDS: APIXABAN 2.5 MG TABLET PO SCH ×2 (10:18→21:07)
[2019-04-13] MEDS: POTASSIUM CHLORIDE ORAL LIQUID 20 MEQ/15 ML PO SCH ×2 (10:19→21:07)
[2019-04-13] MEDS: MEGESTROL ACETATE 400 MG/10 ML UNIT DOSE CUP PO SCH (10:19)
--- NOTE | 2019-04-13 10:35 | PN ---
Progress Note (short form) - Note Progress Note: s: no chest pain, palps, dizziness, dyspnea. frustrated with being hospitalized Current Medications Generic Name Dose Route Start Last Admin Trade Name Jose PRN Reason Stop Dose Admin Apixaban 2.5 mg 03/27/19 22:00 04/13/19 10:18 Eliquis - PO 2.5 mg BID PETTY Administration Atorvastatin Calcium 10 mg 03/27/19 22:00 04/12/19 21:18 Lipitor - PO 10 mg HS PETTY Administration Fluoxetine HCl 20 mg 03/28/19 13:00 04/13/19 10:18 Prozac - PO 20 mg DAILY PETTY Administration Ampicillin Sodium 2 gm/ Sodium 100 mls @ 200 mls/hr 03/31/19 15:00 04/13/19 10:12 Chloride IVPB 200 mls/hr Q6H-IV PETTY Administration Protocol Lactobacillus Acidophilus 1 tab 03/31/19 12:00 04/13/19 10:18 Bacid - PO 1 tab DAILY PETTY Administration Megestrol Acetate 200 mg 04/09/19 15:30 04/13/19 10:19 Megace Oral Suspension - PO 200 mg DAILY PETTY Administration Memantine 5 mg 03/27/19 22:00 04/13/19 10:18 Namenda - PO 5 mg BID PETTY Administration Metoprolol Succinate 25 mg 04/09/19 10:15 04/13/19 10:18 Toprol Xl - PO 25 mg BID PETTY Administration Mirtazapine 15 mg 03/28/19 22:00 04/12/19 21:18 Remeron - PO 15 mg HS PETTY Administration Ondansetron HCl 4 mg 04/08/19 15:37 Zofran Injection IVPB Q4H PRN NAUSEA AND/OR VOMITING Pantoprazole Sodium 40 mg 03/28/19 13:00 04/13/19 10:18 Protonix - PO 40 mg DAILY PETTY Administration Potassium Chloride 40 meq 04/09/19 22:00 04/13/19 10:19 Potassium Chloride Oral Liquid PO 40 meq BID PETTY Administration Spironolactone 25 mg 04/12/19 10:45 04/13/19 10:18 Aldactone - PO 25 mg DAILY PETTY Administration Vital Signs Period Temp Pulse Resp BP Sys/Rice Pulse Ox Last 24 Hr 96.4 F-98.2 F 60-68 -22 103-136/59-72 97-98 Constitutional: Yes: No Distress, Calm Eyes: No: Sclera Icterus HENT: No: Nasal Congestion Cardiovascular: Yes: Regular Rate and Rhythm, JVD, Murmur (MR murmur unchanged) , S1, S2, Other (PMI non diplaced). No: Gallop Respiratory: Yes: CTA Bilaterally. No: Accessory Muscle Use, Mechanically Ventilated, Wheezes Gastrointestinal: Yes: Normal Bowel Sounds, Soft. No: Tenderness Extremities: No: Cold, Cyanosis Edema: No Integumentary: No: Jaundice Neurological: Yes: Alert. No: Seizure Psychiatric: No: Agitated CBC, BMP 04/10/19 06:23 04/12/19 06:07 CXR: clear lungs/pleura EKG sinus, prolonged QTc 515 ms, stable compared to prior echo 03/2019 mild conc LVH, pseudonormalization, RV nl, PPM in R heart, RV function nl, LA severely dilated, mod MAC, significant prolapse vs partial flail of post mitral leaflet, severe eccentric anteriorly directed MR, mild to mod TR, RVSP elevated 40-50 mmHg, mild AR, no obvoius intracardiac vegetations seen tele: SR, PVCs IMP/Plan: sepsis, E. faecalis bacteremia, UTI - ID input appreciated, likely urinary source - no obvious vegetation on echo. repeat bld cx ngtd. no signs of cardiogenic shock, CVA, acute HF - case has been disc'd by our team with dr art who feels that conservative mgmt with 6 wks of abx is preferable given she is hi risk for complications of VITA (including if done at [facility] [place]) and unrevealing VITA will not definitively exclude risk of SBE given in light of indwelling PM leads - cont 6 wks abx course - s/p PICC line anorexia, dehydration, hypernatremia, LILLIE: - baseline creat 1.1-1.3 - weakness, dehydration improved with IVF-->fluids stopped given evidence of volume-excess - renal following - considering PEG tube - ongoing goals of care discussion with patient and daughter, plan for family meeting with palliative care - amiodarone held and meds adjusted by psych for anorexia acute on chronic diastolic chf, severe MR: - PO lasix resumed 04/06 for evidence of volume s/p IV hydration here, wt increased 118 on admission - today 137 lbs - + JVD, mild tachypnea. wt continues to steadily increase despite lasix 40 qd, then 80 qd on 04/09. - note: prior 03/28 admit with acute CHF notes reviewed: she had previously required lasix 80 IV bid for adequate diuresis here, had been sent out on lasix 80 bid in [place] (incorrectly listed as 40 bid in admit notes then)--sent out with rec for 80 bid last time (again notes incorrectly list 40 bid). 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 anorexia s.e.) -incr metoprolol to 25 bid (low bp's during active diuresis previously) -cont eliquis 2.5 bid--adjusted for age, weight anemia: -hgb stable -monitor trends and stools -cont AC for now VTach: -NSVT on tele during prior admissions -K/Mag per usual aggressive targets (08/09) -low dose BB as soft bp's allow hld: -cont home statin
--- NOTE | 2019-04-13 11:51 | PN ---
Progress Note, [employer] - Note Progress Note: Nursing reports that pt accepted 1 1/2 Ensure clear and 1 1/2 overnight. She completed 1 today so far. No difficulty with tolerance of liquids.
--- NOTE | 2019-04-13 16:05 | PN ---
Progress Note, Physician History of Present Illness: Pt seen and examined at bedside. She appears comfortable. - Current Medication List Current Medications: Active Medications Apixaban (Eliquis -) 2.5 mg PO BID [facility] Last Admin: 04/13/19 10:18 Dose: 2.5 mg Atorvastatin Calcium (Lipitor -) 10 mg PO HS [facility] Last Admin: 04/12/19 21:18 Dose: 10 mg Fluoxetine HCl (Prozac -) 20 mg PO DAILY [facility] Last Admin: 04/13/19 10:18 Dose: 20 mg Ampicillin Sodium 2 gm/ Sodium (Chloride) 100 mls @ 200 mls/hr IVPB Q6H-IV PETTY ; Protocol Last Admin: 04/13/19 15:12 Dose: 200 mls/hr Lactobacillus Acidophilus (Bacid -) 1 tab PO DAILY [facility] Last Admin: 04/13/19 10:18 Dose: 1 tab Megestrol Acetate (Megace Oral Suspension -) 200 mg PO DAILY [facility] Last Admin: 04/13/19 10:19 Dose: 200 mg Memantine (Namenda -) 5 mg PO BID [facility] Last Admin: 04/13/19 10:18 Dose: 5 mg Metoprolol Succinate (Toprol Xl -) 25 mg PO BID [facility] Last Admin: 04/13/19 10:18 Dose: 25 mg Mirtazapine (Remeron -) 15 mg PO HS [facility] Last Admin: 04/12/19 21:18 Dose: 15 mg Ondansetron HCl (Zofran Injection) 4 mg IVPB Q4H PRN PRN Reason: NAUSEA AND/OR VOMITING Pantoprazole Sodium (Protonix -) 40 mg PO DAILY [facility] Last Admin: 04/13/19 10:18 Dose: 40 mg Potassium Chloride (Potassium Chloride Oral Liquid) 40 meq PO BID [facility] Last Admin: 04/13/19 10:19 Dose: 40 meq Spironolactone (Aldactone -) 25 mg PO DAILY [facility] Last Admin: 04/13/19 10:18 Dose: 25 mg - Objective Vital Signs: Vital Signs Temperature 97.4 F L 04/13/19 14:00 Pulse Rate 61 04/13/19 14:00 Respiratory Rate 20 04/13/19 10:00 Blood Pressure 113/63 04/13/19 14:00 O2 Sat by Pulse Oximetry (%) 97 04/13/19 09:00 Constitutional: Yes: Calm Eyes: Yes: Conjunctiva Clear HENT: Yes: Atraumatic Neck: Yes: Supple Cardiovascular: Yes: S1, S2 Respiratory: Yes: CTA Bilaterally Gastrointestinal: Yes: Normal Bowel Sounds, Soft Genitourinary: Yes: Incontinence Musculoskeletal: Yes: Muscle Weakness Edema: No Neurological: Yes: Confusion Labs: CBC, BMP 04/10/19 06:23 04/12/19 06:07 Problem List - Problems (1) LILLIE (acute kidney injury) Code(s): N17.9 - ACUTE KIDNEY FAILURE, UNSPECIFIED (2) Hypernatremia Code(s): E87.0 - HYPEROSMOLALITY AND HYPERNATREMIA Assessment/Plan Current Medications Generic Name Dose Route Start Last Admin Trade Name Freq PRN Reason Stop Dose Admin Apixaban 2.5 mg 03/27/19 22:00 04/13/19 10:18 Eliquis - PO 2.5 mg BID PETTY Administration Atorvastatin Calcium 10 mg 03/27/19 22:00 04/12/19 21:18 Lipitor - PO 10 mg HS PETTY Administration Fluoxetine HCl 20 mg 03/28/19 13:00 04/13/19 10:18 Prozac - PO 20 mg DAILY PETTY Administration Ampicillin Sodium 2 gm/ Sodium 100 mls @ 200 mls/hr 03/31/19 15:00 04/13/19 15:12 Chloride IVPB 200 mls/hr Q6H-IV PETTY Administration Protocol Lactobacillus Acidophilus 1 tab 03/31/19 12:00 04/13/19 10:18 Bacid - PO 1 tab DAILY PETTY Administration Megestrol Acetate 200 mg 04/09/19 15:30 04/13/19 10:19 Megace Oral Suspension - PO 200 mg DAILY PETTY Administration Memantine 5 mg 03/27/19 22:00 04/13/19 10:18 Namenda - PO 5 mg BID PETTY Administration Metoprolol Succinate 25 mg 04/09/19 10:15 04/13/19 10:18 Toprol Xl - PO 25 mg BID PETTY Administration Mirtazapine 15 mg 03/28/19 22:00 04/12/19 21:18 Remeron - PO 15 mg HS PETTY Administration Ondansetron HCl 4 mg 04/08/19 15:37 Zofran Injection IVPB Q4H PRN NAUSEA AND/OR VOMITING Pantoprazole Sodium 40 mg 03/28/19 13:00 04/13/19 10:18 Protonix - PO 40 mg DAILY PETTY Administration Potassium Chloride 40 meq 04/09/19 22:00 04/13/19 10:19 Potassium Chloride Oral Liquid PO 40 meq BID PETTY Administration Spironolactone 25 mg 04/12/19 10:45 04/13/19 10:18 Aldactone - PO 25 mg DAILY PETTY Administration Impression 1. LILLIE 2. chf 3. mitral regurg 4. dementia 5. a-fib 6. hld 7. solitary right kidney 8. UTI 9. right side hydro 10. bacteremia 11. hypernatremia 12. hypokalemia Plan - check cmp - cont aldactone, may need to titrate up the dose - family discussing GOC - cardio follow up - encourage PO intake
--- NOTE | 2019-04-13 17:18 | PN ---
Progress Note, Physician History of Present Illness: still poor appetite drinking ensure - Current Medication List Current Medications: Active Medications Apixaban (Eliquis -) 2.5 mg PO BID [facility] Last Admin: 04/13/19 10:18 Dose: 2.5 mg Atorvastatin Calcium (Lipitor -) 10 mg PO HS [facility] Last Admin: 04/12/19 21:18 Dose: 10 mg Fluoxetine HCl (Prozac -) 20 mg PO DAILY [facility] Last Admin: 04/13/19 10:18 Dose: 20 mg Ampicillin Sodium 2 gm/ Sodium (Chloride) 100 mls @ 200 mls/hr IVPB Q6H-IV [facility] ; Protocol Last Admin: 04/13/19 15:12 Dose: 200 mls/hr Lactobacillus Acidophilus (Bacid -) 1 tab PO DAILY [facility] Last Admin: 04/13/19 10:18 Dose: 1 tab Megestrol Acetate (Megace Oral Suspension -) 200 mg PO DAILY [facility] Last Admin: 04/13/19 10:19 Dose: 200 mg Memantine (Namenda -) 5 mg PO BID [facility] Last Admin: 04/13/19 10:18 Dose: 5 mg Metoprolol Succinate (Toprol Xl -) 25 mg PO BID [facility] Last Admin: 04/13/19 10:18 Dose: 25 mg Mirtazapine (Remeron -) 15 mg PO HS [facility] Last Admin: 04/12/19 21:18 Dose: 15 mg Ondansetron HCl (Zofran Injection) 4 mg IVPB Q4H PRN PRN Reason: NAUSEA AND/OR VOMITING Pantoprazole Sodium (Protonix -) 40 mg PO DAILY [facility] Last Admin: 04/13/19 10:18 Dose: 40 mg Potassium Chloride (Potassium Chloride Oral Liquid) 40 meq PO BID [facility] Last Admin: 04/13/19 10:19 Dose: 40 meq Spironolactone (Aldactone -) 25 mg PO DAILY [facility] Last Admin: 04/13/19 10:18 Dose: 25 mg - Objective Vital Signs: Vital Signs Temperature 97.4 F L 04/13/19 14:00 Pulse Rate 61 04/13/19 14:00 Respiratory Rate 20 04/13/19 10:00 Blood Pressure 113/63 04/13/19 14:00 O2 Sat by Pulse Oximetry (%) 97 04/13/19 09:00 Constitutional: Yes: Anxious HENT: Yes: Atraumatic Neck: Yes: Supple Cardiovascular: Yes: Regular Rate and Rhythm Respiratory: Yes: CTA Bilaterally Gastrointestinal: Yes: Normal Bowel Sounds Extremities: Yes: WNL Edema: No Neurological: Yes: Alert, Oriented Labs: CBC, BMP 04/10/19 06:23 04/12/19 06:07 Problem List - Problems (1) LILLIE (acute kidney injury) Assessment/Plan: cr improving on diuretics renal on board Code(s): N17.9 - ACUTE KIDNEY FAILURE, UNSPECIFIED (2) Elevated troponin Code(s): R74.8 - ABNORMAL LEVELS OF OTHER SERUM ENZYMES (3) CHF (congestive heart failure) Assessment/Plan: on iv diuretics Code(s): I50.9 - HEART FAILURE, UNSPECIFIED (4) Dementia Code(s): F03.90 - UNSPECIFIED DEMENTIA WITHOUT BEHAVIORAL DISTURBANCE (5) GERD (gastroesophageal reflux disease) Assessment/Plan: on protonix Code(s): K21.9 - GASTRO-ESOPHAGEAL REFLUX DISEASE WITHOUT ESOPHAGITIS (6) Atrial fibrillation Assessment/Plan: on meds Code(s): I48.91 - UNSPECIFIED ATRIAL FIBRILLATION Qualifiers: Atrial fibrillation type: paroxysmal Qualified Code(s): I48.0 - Paroxysmal atrial fibrillation (7) HTN (hypertension) Code(s): I10 - ESSENTIAL (PRIMARY) HYPERTENSION (8) Positive blood culture Code(s): R78.81 - BACTEREMIA (9) Poor appetite Code(s): R63.0 - ANOREXIA (10) Hypokalemia Assessment/Plan: on supplement Code(s): E87.6 - HYPOKALEMIA (11) Dehydration Assessment/Plan: dc lasix Code(s): E86.0 - DEHYDRATION (12) Failure to thrive Code(s): [id number] - (13) Pacemaker Code(s): Z95.0 - PRESENCE OF CARDIAC PACEMAKER (14) Feeding difficulty in elderly Assessment/Plan: on ensure calorie count Code(s): R63.3 - FEEDING DIFFICULTIES (15) Abnormal liver function test Assessment/Plan: monitor gi on board Code(s): R94.5 - ABNORMAL RESULTS OF LIVER FUNCTION STUDIES
--- NOTE | 2019-04-13 19:23 | PN ---
Progress Note (short form) - Note Progress Note: Rising LFTS. Stopped statin. Consider further potentially hepatotoxic medication elimination as feasible per PMD and changing of antibiotic regimen Problem List - Problems (1) Failure to thrive Code(s): [id number] - (2) Abnormal liver function test Code(s): R94.5 - ABNORMAL RESULTS OF LIVER FUNCTION STUDIES
[2019-04-13] MEDS ORDERED: SODIUM CHLORIDE 100 ML IVPB ONE (20:48)
[2019-04-13] MEDS ORDERED: AMPICILLIN SODIUM 2 GM VIAL ONE (20:48)
[2019-04-13] MEDS: MIRTAZAPINE 15 MG TABLET (FP) PO SCH (21:07)
[2019-04-14] MEDS ORDERED: SODIUM CHLORIDE 100 ML IVPB ONE (01:25)
[2019-04-14] MEDS ORDERED: AMPICILLIN SODIUM 2 GM VIAL ONE (01:25)
[2019-04-14] MEDS: AMPICILLIN - 2 GM in SODIUM CHLORIDE 100 ML IVPB SCH ×2 (02:29→09:07)
[2019-04-14 06:50] LABS: HEMATOCRIT 29.1 % (32.4-45.2); HEMOGLOBIN 9.1 GM/dL (10.7-15.3); MCH 28.9 pg (25.7-33.7); MCHC 31.3 g/dl (32.0-36.0); MEAN CELL VOLUME 92.1 fl (80-96); MEAN PLT VOLUME 11.2 fl (7.5-11.1); PLATELET COUNT 196 K/MM3 (134-434); RBC 3.16 M/mm3 (3.60-5.2); RDW 18.9 % (11.6-15.6); WHITE BLOOD COUNT 15.1 K/mm3 (4.0-10.0)
[2019-04-14 07:19] LABS: ALK PHOS 702 U/L (45-117); ANION GAP 15 MMOL/L (8-16); BILIRUBIN,TOTAL 0.8 mg/dL (0.2-1); BLOOD UREA NITROGEN 76.3 mg/dL (7-18); CALCIUM 7.8 mg/dL (8.5-10.1); CHLORIDE 115 mmol/L (98-107); CO2 16 mmol/L (21-32); CREATININE 2.3 mg/dL (0.55-1.3); GLUCOSE,RANDOM 94 mg/dL (74-106); POTASSIUM 3.3 mmol/L (3.5-5.1); SGOT/AST > 1000 U/L (15-37); SGPT/ALT 790 U/L (13-61); SODIUM 146 mmol/L (136-145); TOT PROT 6.1 g/dl (6.4-8.2)
[2019-04-14] MEDS: PANTOPRAZOLE 40 MG TABLET (FP) PO SCH (09:08)
[2019-04-14] MEDS: SPIRONOLACTONE 25 MG TABLET (FP) PO SCH (09:08)
[2019-04-14] MEDS: LACTOBACILLUS ACIDOPHILUS 1 TABLET PO SCH (09:08)
[2019-04-14] MEDS: MEMANTINE HCL 5 MG TABLET (UD) PO SCH (09:08)
[2019-04-14] MEDS: FLUoxetine HCL 20 MG CAPSULE (FP) PO SCH (09:08)
[2019-04-14] MEDS: APIXABAN 2.5 MG TABLET PO SCH (09:08)
[2019-04-14] MEDS: MEGESTROL ACETATE 400 MG/10 ML UNIT DOSE CUP PO SCH (09:08)
[2019-04-14] MEDS: metoPROLOL SUCCINATE 25 MG TAB.SR.24H (FP) PO SCH ×2 (09:08→21:34)
--- NOTE | 2019-04-14 09:46 | PN ---
Progress Note, Physician Chief Complaint: No new complaints LFTs on the rise/ as is creatinine TELE: NSR, VPCs Weight down few pounds from 04/11 but up sig from admission. - Current Medication List Current Medications: Active Medications Apixaban (Eliquis -) 2.5 mg PO BID [facility] Last Admin: 04/14/19 09:08 Dose: 2.5 mg Fluoxetine HCl (Prozac -) 20 mg PO DAILY [facility] Last Admin: 04/14/19 09:08 Dose: 20 mg Ampicillin Sodium 2 gm/ Sodium (Chloride) 100 mls @ 200 mls/hr IVPB Q6H-IV [facility] ; Protocol Last Admin: 04/14/19 09:07 Dose: 200 mls/hr Lactobacillus Acidophilus (Bacid -) 1 tab PO DAILY [facility] Last Admin: 04/14/19 09:08 Dose: 1 tab Megestrol Acetate (Megace Oral Suspension -) 200 mg PO DAILY [facility] Last Admin: 04/14/19 09:08 Dose: 200 mg Memantine (Namenda -) 5 mg PO BID [facility] Last Admin: 04/14/19 09:08 Dose: 5 mg Metoprolol Succinate (Toprol Xl -) 25 mg PO BID [facility] Last Admin: 04/14/19 09:08 Dose: 25 mg Mirtazapine (Remeron -) 15 mg PO HS [facility] Last Admin: 04/13/19 21:07 Dose: 15 mg Ondansetron HCl (Zofran Injection) 4 mg IVPB Q4H PRN PRN Reason: NAUSEA AND/OR VOMITING Pantoprazole Sodium (Protonix -) 40 mg PO DAILY [facility] Last Admin: 04/14/19 09:08 Dose: 40 mg Potassium Chloride (Potassium Chloride Oral Liquid) 40 meq PO BID [facility] Last Admin: 04/13/19 21:07 Dose: 40 meq Spironolactone (Aldactone -) 25 mg PO DAILY [facility] Last Admin: 04/14/19 09:08 Dose: 25 mg - Objective Vital Signs: Vital Signs Temperature 97.6 F 04/14/19 06:00 Pulse Rate 64 04/14/19 06:00 Respiratory Rate 20 04/14/19 06:00 Blood Pressure 150/63 04/14/19 06:00 O2 Sat by Pulse Oximetry (%) 99 04/13/19 21:00 Constitutional: Yes: Calm HENT: Yes: Other (+ JVD) Cardiovascular: Yes: Regular Rate and Rhythm Respiratory: Yes: Other (clear without rales) Edema: No Neurological: Yes: Alert Labs: CBC, BMP 04/14/19 06:10 04/14/19 06:10 Assessment/Plan echo 03/2019 mild conc LVH, pseudonormalization, RV nl, PPM in R heart, RV function nl, LA severely dilated, mod MAC, significant prolapse vs partial flail of post mitral leaflet, severe eccentric anteriorly directed MR, mild to mod TR, RVSP elevated 40-50 mmHg, mild AR, no obvoius intracardiac vegetations seen tele: SR, PVCs IMP/Plan: Worsening LFTS: differential includes- ABx vs ?acalculus cholecysitis? vs passive congestion from right sided failure/PHTN secondary to MR? -GI following -Repeat CXR -Will discuss with renal and GI re trial of more aggressive diuresis. Sepsis, E. faecalis bacteremia, UTI - ID input appreciated, likely urinary source - no obvious vegetation on echo. repeat bld cx ngtd. no signs of cardiogenic shock, CVA, acute HF - case has been disc'd by our team with dr art who feels that conservative mgmt with 6 wks of abx is preferable given she is hi risk for complications of VITA (including if done at [facility] [place]) and unrevealing VITA will not definitively exclude risk of SBE given in light of indwelling PM leads - cont 6 wks abx course - s/p PICC line anorexia, dehydration, hypernatremia, LILLIE: - baseline creat 1.1-1.3 - weakness, dehydration improved with IVF-->fluids stopped given evidence of volume-excess - renal following - considering PEG tube - ongoing goals of care discussion with patient and daughter, plan for family meeting with palliative care - amiodarone held and meds adjusted by psych for anorexia acute on chronic diastolic chf, severe MR: - See above - cont spironolactone elevated trop: - indeterminate range, flat trend, no ischemic changes - less likely ACS - likely demand in setting of sepsis PAF, s/p PM: -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 anorexia s.e.) -incr metoprolol to 25 bid (low bp's during active diuresis previously) -cont eliquis 2.5 bid--adjusted for age, weight anemia: -hgb stable -monitor trends and stools -cont AC for now VTach: -NSVT on tele during prior admissions -K/Mag per usual aggressive targets (08/09) -low dose BB as soft bp's allow hld: -cont home statin
--- NOTE | 2019-04-14 12:26 | PN ---
Progress Note (short form) - Note Progress Note: remains fatigued eating poorly wants to know when she is going home Vital Signs Period Temp Pulse Resp BP Sys/Rice Pulse Ox Last 24 Hr 97.2 F-98 F 60-64 20-20 98-150/60-66 99 cor-rrr lungs clear abd soft, nt no RUQ pain ext trace edema CBC, BMP 04/14/19 06:10 04/14/19 06:10 Microbiology 03/28/19 17:00 Blood - Peripheral Venous Blood Culture - Final NO GROWTH AFTER 5 DAYS INCUBATION 03/28/19 17:00 Blood - Peripheral Venous Blood Culture - Final NO GROWTH AFTER 5 DAYS INCUBATION 03/27/19 15:55 Blood - Peripheral Venous Blood Culture - Final Enterococcus Faecalis 03/27/19 15:55 Blood - Peripheral Venous Blood Culture - Final Enterococcus Faecalis 03/27/19 16:34 Urine - Urine Clean Catch Urine Culture - Final Contaminated: Please Repeat echo+valvular disease, no obvious vegetations noted a/p enterococcal bacteremia-cannot r/o endocarditis with valvular heart disease and PPM pyuria on admission valvular heart disease PPM lillie/ckd- worsening continue ampicillin- day #18-dose adjusted for renal failure abnl lfts- off ceftriaxone since 04/12, d/c all other nonessential meds gi and renal f/u Problem List - Problems (1) Positive blood culture Code(s): R78.81 - BACTEREMIA (2) LILLIE (acute kidney injury) Code(s): N17.9 - ACUTE KIDNEY FAILURE, UNSPECIFIED (3) Mitral valve regurgitation Code(s): I34.0 - NONRHEUMATIC MITRAL (VALVE) INSUFFICIENCY (4) Pacemaker Code(s): Z95.0 - PRESENCE OF CARDIAC PACEMAKER
--- NOTE | 2019-04-14 13:57 | PN.GI ---
GI Progress Note Subjective: Rising LFTs Stopped statin yesterday Abdominal US failed to visualize GB and CBD was 7mm Cannot have MRCP due to PPM present at bedside No abdominal pain No history of cholecystectomy per the patient and her - Objective Vital Signs: Vital Signs Temperature 97.5 F L 04/14/19 10:00 Pulse Rate 62 04/14/19 10:00 Respiratory Rate 20 04/14/19 10:00 Blood Pressure 123/66 04/14/19 10:00 O2 Sat by Pulse Oximetry (%) 99 04/13/19 21:00 Constitutional: Calm Eyes: No: Sclera Icterus Cardiovascular: Yes: Regular Rate and Rhythm, Murmur (2/6 holosystolic murmur) Respiratory: Yes: Rhonchi (at bases bilaterally) Labs: CBC, BMP 04/14/19 06:10 04/14/19 06:10 Laboratory Tests 04/14/19 06:10 Creatine Kinase 50 Hepatic Panel Total Bilirubin 0.8 mg/dL (0.2-1) 04/14/19 06:10 AST > 1000 U/L (15-37) H 04/14/19 06:10 ALT 790 U/L (13-61) H 04/14/19 06:10 Alkaline Phosphatase 702 U/L (45-117) H 04/14/19 06:10 Albumin 2.0 g/dl (3.4-5.0) L 04/14/19 06:10 Laboratory Tests 04/14/19 12:20 INR Pending - ....Imaging Ultrasound: Report Reviewed Problem List - Problems (1) Abnormal liver function test Assessment/Plan: Asymptomatic. Unclear etiology. mixed cholestatic/hepatocellular ? component of right heart failure, medication related (ceftriaxone has been discontinued previously by ID). Stopped lipitor yesterday Continue non essential medication elimination as feasible Ordered CT A/P without contrast to evaluate liver and assess gallbladder (not visualized on US) Awaiting coags If worsening liver function, consider transfer to tertiary care liver center given complicated nature of her case(ie [facility]) Monitor daily coags / LFTs Hepatitis A/B/C serologies ordered for today Discussed plan with Dr. Trevizo Code(s): R94.5 - ABNORMAL RESULTS OF LIVER FUNCTION STUDIES
[2019-04-14 13:58] LABS: ACTIVATED PTT 35.5 SECONDS (25.2-36.5)
[2019-04-14] MEDS ORDERED: FUROSEMIDE 40 MG/4 ML INJECTABLE VIAL IVPUSH SCH (14:00)
--- NOTE | 2019-04-14 14:01 | PN ---
Progress Note, Physician History of Present Illness: Pt seen and examined at bedside. She complains of shortness of breath. She denies chest pain. She is confused. - Current Medication List Current Medications: Active Medications Apixaban (Eliquis -) 2.5 mg PO BID [facility] [place] Last Admin: 04/14/19 09:08 Dose: 2.5 mg Fluoxetine HCl (Prozac -) 20 mg PO DAILY [facility] [place] Last Admin: 04/14/19 09:08 Dose: 20 mg Furosemide (Lasix Injection -) 60 mg IVPUSH BID@0600,1400 [facility] [place] Ampicillin Sodium 2 gm/ Sodium (Chloride) 100 mls @ 200 mls/hr IVPB Q8H-IV [facility] ; Protocol Lactobacillus Acidophilus (Bacid -) 1 tab PO DAILY [facility] [place] Last Admin: 04/14/19 09:08 Dose: 1 tab Megestrol Acetate (Megace Oral Suspension -) 200 mg PO DAILY [facility] [place] Last Admin: 04/14/19 09:08 Dose: 200 mg Memantine (Namenda -) 5 mg PO BID [facility] [place] Last Admin: 04/14/19 09:08 Dose: 5 mg Metoprolol Succinate (Toprol Xl -) 25 mg PO BID [facility] [place] Last Admin: 04/14/19 09:08 Dose: 25 mg Mirtazapine (Remeron -) 15 mg PO HS [facility] [place] Last Admin: 04/13/19 21:07 Dose: 15 mg Ondansetron HCl (Zofran Injection) 4 mg IVPB Q4H PRN PRN Reason: NAUSEA AND/OR VOMITING Pantoprazole Sodium (Protonix -) 40 mg PO DAILY [facility] [place] Last Admin: 04/14/19 09:08 Dose: 40 mg Potassium Chloride (Potassium Chloride Oral Liquid) 40 meq PO BID [facility] [place] Last Admin: 04/13/19 21:07 Dose: 40 meq Spironolactone (Aldactone -) 25 mg PO DAILY [facility] [place] Last Admin: 04/14/19 09:08 Dose: 25 mg - Objective Vital Signs: Vital Signs Temperature 97.5 F L 04/14/19 10:00 Pulse Rate 62 04/14/19 10:00 Respiratory Rate 20 04/14/19 10:00 Blood Pressure 123/66 04/14/19 10:00 O2 Sat by Pulse Oximetry (%) 99 04/13/19 21:00 Constitutional: Yes: Calm Eyes: Yes: Conjunctiva Clear HENT: Yes: Atraumatic Neck: Yes: Supple Cardiovascular: Yes: S1, S2 Respiratory: Yes: On Nasal O2, Rhonchi Gastrointestinal: Yes: Normal Bowel Sounds, Soft Genitourinary: Yes: Incontinence Musculoskeletal: Yes: Muscle Weakness Edema: Yes Edema: LLE: Trace, RLE: Trace Neurological: Yes: Confusion Labs: CBC, BMP 04/14/19 06:10 04/14/19 06:10 Problem List - Problems (1) LILLIE (acute kidney injury) Code(s): N17.9 - ACUTE KIDNEY FAILURE, UNSPECIFIED (2) Hypernatremia Code(s): E87.0 - HYPEROSMOLALITY AND HYPERNATREMIA Assessment/Plan Current Medications Generic Name Dose Route Start Last Admin Trade Name Freq PRN Reason Stop Dose Admin Apixaban 2.5 mg 03/27/19 22:00 04/14/19 09:08 Eliquis - PO 2.5 mg BID [facility] Administration Fluoxetine HCl 20 mg 03/28/19 13:00 04/14/19 09:08 Prozac - PO 20 mg DAILY [facility] Administration Furosemide 60 mg 04/14/19 14:00 Lasix Injection - IVPUSH BID@0600,1400 [facility] Ampicillin Sodium 2 gm/ Sodium 100 mls @ 200 mls/hr 04/14/19 18:00 Chloride IVPB Q8H-IV [facility] Protocol Lactobacillus Acidophilus 1 tab 03/31/19 12:00 04/14/19 09:08 Bacid - PO 1 tab DAILY [facility] Administration Megestrol Acetate 200 mg 04/09/19 15:30 04/14/19 09:08 Megace Oral Suspension - PO 200 mg DAILY [facility] Administration Memantine 5 mg 03/27/19 22:00 04/14/19 09:08 Namenda - PO 5 mg BID [facility] Administration Metoprolol Succinate 25 mg 04/09/19 10:15 04/14/19 09:08 Toprol Xl - PO 25 mg BID [facility] Administration Mirtazapine 15 mg 03/28/19 22:00 04/13/19 21:07 Remeron - PO 15 mg HS [facility] Administration Ondansetron HCl 4 mg 04/08/19 15:37 Zofran Injection IVPB Q4H PRN NAUSEA AND/OR VOMITING Pantoprazole Sodium 40 mg 03/28/19 13:00 04/14/19 09:08 Protonix - PO 40 mg DAILY [facility] Administration Potassium Chloride 40 meq 04/09/19 22:00 04/13/19 21:07 Potassium Chloride Oral Liquid PO 40 meq BID [facility] Administration Spironolactone 25 mg 04/12/19 10:45 04/14/19 09:08 Aldactone - PO 25 mg DAILY [facility] Administration Impression 1. LILLIE 2. chf 3. mitral regurg 4. dementia 5. a-fib 6. hld 7. solitary right kidney 8. UTI 9. right side hydro 10. bacteremia 11. hypernatremia 12. hypokalemia 13. transaminitis Plan - lasix restarted - cont potassium supplements - cont aldactone - pt now with worsening transaminitis - pt with poor po intake - discussed with cardio - family discussing GOC
[2019-04-14 15:34] LABS: INR 5.09 (0.83-1.09)
[2019-04-14] MEDS: POTASSIUM CHLORIDE ORAL LIQUID 20 MEQ/15 ML PO SCH (16:51)
[2019-04-14] MEDS ORDERED: PHYTONADIONE 10 MG/1 ML AMP IVPB ONE (17:30)
--- NOTE | 2019-04-14 18:39 | PN ---
Progress Note, Physician History of Present Illness: on ensure - Current Medication List Current Medications: Active Medications Apixaban (Eliquis -) 2.5 mg PO BID [facility] Ampicillin Sodium 2 gm/ Sodium (Chloride) 100 mls @ 200 mls/hr IVPB Q8H-IV [facility] ; Protocol Lactobacillus Acidophilus (Bacid -) 1 tab PO DAILY [facility] Last Admin: 04/14/19 09:08 Dose: 1 tab Metoprolol Succinate (Toprol Xl -) 25 mg PO BID [facility] Last Admin: 04/14/19 09:08 Dose: 25 mg Mirtazapine (Remeron -) 15 mg PO HS [facility] Last Admin: 04/13/19 21:07 Dose: 15 mg Ondansetron HCl (Zofran Injection) 4 mg IVPB Q4H PRN PRN Reason: NAUSEA AND/OR VOMITING Pantoprazole Sodium (Protonix -) 40 mg PO DAILY [facility] Last Admin: 04/14/19 09:08 Dose: 40 mg Spironolactone (Aldactone -) 25 mg PO DAILY [facility] Last Admin: 04/14/19 09:08 Dose: 25 mg - Objective Vital Signs: Vital Signs Temperature 98.7 F 04/14/19 14:00 Pulse Rate 99 H 04/14/19 14:00 Respiratory Rate 20 04/14/19 14:00 Blood Pressure 115/69 04/14/19 14:00 O2 Sat by Pulse Oximetry (%) 99 04/13/19 21:00 Constitutional: Yes: Calm HENT: Yes: Atraumatic Neck: Yes: Supple Cardiovascular: Yes: Regular Rate and Rhythm Respiratory: Yes: CTA Bilaterally Gastrointestinal: Yes: Normal Bowel Sounds Extremities: Yes: WNL Edema: No Neurological: Yes: Alert, Oriented Labs: CBC, BMP 04/14/19 06:10 04/14/19 06:10 INR, PTT INR 5.09 (0.83-1.09) H* 04/14/19 12:20 Problem List - Problems (1) LILLIE (acute kidney injury) Assessment/Plan: cr went up hold diuretics need renal input Code(s): N17.9 - ACUTE KIDNEY FAILURE, UNSPECIFIED (2) Elevated troponin Assessment/Plan: stable Code(s): R74.8 - ABNORMAL LEVELS OF OTHER SERUM ENZYMES (3) CHF (congestive heart failure) Assessment/Plan: on aldactone only now Code(s): I50.9 - HEART FAILURE, UNSPECIFIED (4) Dementia Code(s): F03.90 - UNSPECIFIED DEMENTIA WITHOUT BEHAVIORAL DISTURBANCE (5) GERD (gastroesophageal reflux disease) Assessment/Plan: on protonix Code(s): K21.9 - GASTRO-ESOPHAGEAL REFLUX DISEASE WITHOUT ESOPHAGITIS (6) Atrial fibrillation Assessment/Plan: on meds Code(s): I48.91 - UNSPECIFIED ATRIAL FIBRILLATION Qualifiers: Atrial fibrillation type: paroxysmal Qualified Code(s): I48.0 - Paroxysmal atrial fibrillation (7) HTN (hypertension) Assessment/Plan: on meds monitor cardiology on board Code(s): I10 - ESSENTIAL (PRIMARY) HYPERTENSION (8) Positive blood culture Assessment/Plan: on abx id consult Code(s): R78.81 - BACTEREMIA (9) Poor appetite Assessment/Plan: gi eval noted Code(s): R63.0 - ANOREXIA (10) Hypokalemia Assessment/Plan: on supplement Code(s): E87.6 - HYPOKALEMIA (11) Dehydration Assessment/Plan: dc lasix Code(s): E86.0 - DEHYDRATION (12) Failure to thrive Code(s): [id number] - (13) Pacemaker Code(s): Z95.0 - PRESENCE OF CARDIAC PACEMAKER (14) Feeding difficulty in elderly Assessment/Plan: on ensure calorie count Code(s): R63.3 - FEEDING DIFFICULTIES (15) Abnormal liver function test Assessment/Plan: went up will stop some meds monitor d/w gi Code(s): R94.5 - ABNORMAL RESULTS OF LIVER FUNCTION STUDIES
[2019-04-14 19:47] LABS: BILIRUBIN,TOTAL 0.9 mg/dL (0.2-1); BLOOD UREA NITROGEN 81.4 mg/dL (7-18); CALCIUM 7.7 mg/dL (8.5-10.1); CREATININE 2.5 mg/dL (0.55-1.3); POTASSIUM 3.3 mmol/L (3.5-5.1); TOT PROT 5.9 g/dl (6.4-8.2)
[2019-04-14] MEDS: MIRTAZAPINE 15 MG TABLET (FP) PO SCH (21:34)
[2019-04-14] MEDS ORDERED: APIXABAN 2.5 MG TABLET PO SCH (22:00)
--- NOTE | 2019-04-15 07:27 | PN.GI ---
GI Progress Note Subjective: FAMILY AT THE BEDSIDE PATIENT DENIES ANY COMPLAINTS - NO ABD PAIN / NAUSEA / VOMITING; TOLERATING SOME DIET - Objective Vital Signs: Vital Signs Temperature 97.5 F L 04/15/19 02:00 Pulse Rate 59 L 04/15/19 02:00 Respiratory Rate 20 04/15/19 02:00 Blood Pressure 108/64 04/15/19 02:00 O2 Sat by Pulse Oximetry (%) 96 04/14/19 21:00 Constitutional: Well Nourished, No Distress, Calm Eyes: Yes: WNL HENT: Yes: WNL Neck: Yes: WNL Cardiovascular: Yes: WNL, Regular Rate and Rhythm Respiratory: Yes: WNL, Regular, CTA Bilaterally Gastrointestinal Inspection: Yes: WNL ...Auscultate: Yes: Normoactive Bowel Sounds Musculoskeletal: Yes: WNL Extremities: Yes: WNL Neurological: Yes: Other (NO ASTERIX ; AAOX3) Labs: CBC, BMP 04/14/19 06:10 04/14/19 15:37 INR, PTT INR 5.09 (0.83-1.09) H* 04/14/19 12:20 Problem List - Problems (1) Abnormal liver function test Assessment/Plan: UNCLEAR ETIOLOGY OF HER TRANSAMININTIS- MOST LIKELY MULTIFACTORIAL - CARDIAC AND MEDICATION INDUCED CT SCAN ABDOMEN PENDING RESULTS TO EXCLUDE OBSTRUCTIVE PROCESS INR ORDERED AM LFT'S DIET TOLERATED DAUGHTER TO MAKE THE DECISION REGARDING HOSPICE CARE WILL F/U Code(s): R94.5 - ABNORMAL RESULTS OF LIVER FUNCTION STUDIES (2) Elevated troponin Code(s): R74.8 - ABNORMAL LEVELS OF OTHER SERUM ENZYMES (3) Failure to thrive Code(s): [id number] -
[2019-04-15 08:09] LABS: BASO % 0.1 % (0-2.0); EOS % 0.1 % (0-4.5); HEMATOCRIT 28.3 % (32.4-45.2); LYMPH % 9.3 % (8-40); MCHC 31.6 g/dl (32.0-36.0); MEAN CELL VOLUME 91.8 fl (80-96); MONO % 11.3 % (3.8-10.2); NEUT % 79.2 % (42.8-82.8); PLATELET COUNT 168 K/MM3 (134-434); RBC 3.09 M/mm3 (3.60-5.2); RDW 19.5 % (11.6-15.6); WHITE BLOOD COUNT 15.3 K/mm3 (4.0-10.0)
[2019-04-15 08:36] LABS: BILIRUBIN,DIRECT 0.8 mg/dL (0.0-0.2); CALCIUM 7.7 mg/dL (8.5-10.1); CREATININE 2.6 mg/dL (0.55-1.3); MAGNESIUM 2.2 mg/dL (1.8-2.4); POTASSIUM 3.2 mmol/L (3.5-5.1)
[2019-04-15] MEDS: AMPICILLIN - 2 GM in SODIUM CHLORIDE 100 ML IVPB SCH ×2 (09:00→18:00)
--- NOTE | 2019-04-15 09:44 | PN ---
Progress Note, Physician Chief Complaint: LFTs trending up History of Present Illness: "I have no problems with my breathing" - Current Medication List Current Medications: Active Medications Ampicillin Sodium 2 gm/ Sodium (Chloride) 100 mls @ 200 mls/hr IVPB Q8H-IV [facility] ; Protocol Lactobacillus Acidophilus (Bacid -) 1 tab PO DAILY [facility] Last Admin: 04/14/19 09:08 Dose: 1 tab Metoprolol Succinate (Toprol Xl -) 25 mg PO BID [facility] Last Admin: 04/14/19 21:34 Dose: 25 mg Mirtazapine (Remeron -) 15 mg PO HS [facility] Last Admin: 04/14/19 21:34 Dose: 15 mg Ondansetron HCl (Zofran Injection) 4 mg IVPB Q4H PRN PRN Reason: NAUSEA AND/OR VOMITING Pantoprazole Sodium (Protonix -) 40 mg PO DAILY [facility] Last Admin: 04/14/19 09:08 Dose: 40 mg Spironolactone (Aldactone -) 25 mg PO DAILY [facility] Last Admin: 04/14/19 09:08 Dose: 25 mg - Objective Vital Signs: Vital Signs Temperature 98 F 04/15/19 09:00 Pulse Rate 60 04/15/19 09:00 Respiratory Rate 20 04/15/19 09:00 Blood Pressure 107/69 04/15/19 09:00 O2 Sat by Pulse Oximetry (%) 96 04/14/19 21:00 Constitutional: Yes: No Distress Eyes: Yes: Conjunctiva Clear Cardiovascular: Yes: Regular Rate and Rhythm Respiratory: Yes: CTA Bilaterally (No rales.) Gastrointestinal: Yes: Soft Edema: No Neurological: Yes: Alert, Oriented ...Motor Strength: WNL Labs: CBC, BMP 04/15/19 05:55 04/15/19 05:55 INR, PTT INR 5.09 (0.83-1.09) H* 04/14/19 12:20 - ....Imaging EKG: Image Reviewed Assessment/Plan IMP: Severe chronic MR PAF s/p PPM Bacteremia, possible IE on dramatic reader IV abx CKD with acute renal failure Worsening transaminitis, liver failure of unclear etiology REC: Case was discussed with her primary voltage tester Dr. Bagley, renal and GI team here yesterday. Lasix was resumed with the thinking that the worsened renal function and liver fx could be reflective of poor cardiac output (passive hepatic congestion and cardiorenal syndrome). Suggest resumption of diuretics and close monitoring of renal/hepatic function. Advanced directives and goals of care to be addressed. As patient has been deemed a poor candidate for MV clip due to her cognitive decline, an appropriate next step would be hospice.
[2019-04-15] MEDS ORDERED: PT OWN MED DRAWER 7, Y5N ONE (09:46)
[2019-04-15] MEDS: metoPROLOL SUCCINATE 25 MG TAB.SR.24H (FP) PO SCH ×3 (09:51→22:28)
[2019-04-15] MEDS: SPIRONOLACTONE 25 MG TABLET (FP) PO SCH (09:51)
[2019-04-15] MEDS: LACTOBACILLUS ACIDOPHILUS 1 TABLET PO SCH (09:51)
[2019-04-15] MEDS: PANTOPRAZOLE 40 MG TABLET (FP) PO SCH (09:51)
[2019-04-15 11:19] LABS: ANISOCYTOSIS 1+; MACROCYTOSIS 1+; OVALOCYTE 1+; PLATELET ESTIMATE DECREASED
--- NOTE | 2019-04-15 11:41 | PN ---
Progress Note, Physician History of Present Illness: AWAKE, ALERT IN BED NO COMPLAINTS AFEBRILE WBC INCREASED LFTS TRENDING UPWARD EVALUATED BY GI THIS AM CT ABDO/PELVIS DONE OFFICIAL READING PENDING - Current Medication List Current Medications: Active Medications Ampicillin Sodium 2 gm/ Sodium (Chloride) 100 mls @ 200 mls/hr IVPB Q8H-IV [facility] ; Protocol Last Admin: 04/15/19 09:00 Dose: 200 mls/hr Lactobacillus Acidophilus (Bacid -) 1 tab PO DAILY [facility] Last Admin: 04/15/19 09:51 Dose: 1 tab Metoprolol Succinate (Toprol Xl -) 25 mg PO BID [facility] Last Admin: 04/15/19 09:51 Dose: 25 mg Mirtazapine (Remeron -) 15 mg PO HS [facility] Last Admin: 04/14/19 21:34 Dose: 15 mg Ondansetron HCl (Zofran Injection) 4 mg IVPB Q4H PRN PRN Reason: NAUSEA AND/OR VOMITING Pantoprazole Sodium (Protonix -) 40 mg PO DAILY [facility] Last Admin: 04/15/19 09:51 Dose: 40 mg Spironolactone (Aldactone -) 25 mg PO DAILY [facility] Last Admin: 04/15/19 09:51 Dose: 25 mg - Objective Vital Signs: Vital Signs Temperature 98 F 04/15/19 09:00 Pulse Rate 60 04/15/19 09:00 Respiratory Rate 20 04/15/19 09:00 Blood Pressure 107/69 04/15/19 09:00 O2 Sat by Pulse Oximetry (%) 96 04/14/19 21:00 Constitutional: Yes: No Distress Eyes: Yes: Conjunctiva Clear Cardiovascular: Yes: Regular Rate and Rhythm, Murmur, S1, S2 Respiratory: Yes: Diminished Gastrointestinal: Yes: Normal Bowel Sounds, Soft. No: Tenderness Labs: CBC, BMP 04/15/19 05:55 04/15/19 05:55 INR, PTT INR 5.09 (0.83-1.09) H* 04/14/19 12:20 Assessment/Plan ENTEROCOCCAL BACTEREMIA R/O ENDOCARDITIS VALVULAR HEART DISEASE PPM ELEVATED LFTS CKD LEUKOCYTOSIS CONTINUE AMPICILLIN CT A/P REPORT PENDING GI F/U
--- NOTE | 2019-04-15 13:42 | PN ---
Progress Note (short form) - Note Progress Note: RENAL Pt complaining that she has been here too long she is confused about how long however by bedside Last Vital Signs Temp Pulse Resp BP Pulse Ox 98 F 60 20 107/69 96 04/15/19 09:00 04/15/19 09:00 04/15/19 09:00 04/15/19 09:00 04/14/19 21:00 lying flat comfortably lungs clear cvs s1s2 rr abd soft ext no edema CBC, BMP 04/15/19 05:55 04/15/19 05:55 Current Medications Generic Name Dose Route Start Last Admin Trade Name Freq PRN Reason Stop Dose Admin Ampicillin Sodium 2 gm/ Sodium 100 mls @ 200 mls/hr 04/14/19 18:00 04/15/19 09:00 Chloride IVPB 200 mls/hr Q8H-IV [facility] Administration Protocol Lactobacillus Acidophilus 1 tab 03/31/19 12:00 04/15/19 09:51 Bacid - PO 1 tab DAILY [facility] Administration Metoprolol Succinate 25 mg 04/09/19 10:15 04/15/19 09:51 Toprol Xl - PO 25 mg BID [facility] Administration Mirtazapine 15 mg 03/28/19 22:00 04/14/19 21:34 Remeron - PO 15 mg HS [facility] Administration Ondansetron HCl 4 mg 04/08/19 15:37 Zofran Injection IVPB Q4H PRN NAUSEA AND/OR VOMITING Pantoprazole Sodium 40 mg 03/28/19 13:00 04/15/19 09:51 Protonix - PO 40 mg DAILY [facility] Administration Impression 1. LILLIE 2. chf 3. mitral regurg 4. dementia 5. a-fib 6. hld 7. solitary right kidney 8. UTI 9. right side hydro 10. bacteremia 11. hypernatremia 12. hypokalemia 13. transaminitis maybe related to antibiotics Plan -antibiotics per ID. Consider changing antibiotics given transaminitis continue other management MV
[2019-04-15] MEDS ORDERED: FUROSEMIDE 100 MG/10 ML INJECTABLE VIAL IVPB SCH (14:00)
--- NOTE | 2019-04-15 15:36 | PN ---
Progress Note, Physician History of Present Illness: on ensure - Current Medication List Current Medications: Active Medications Ampicillin Sodium 2 gm/ Sodium (Chloride) 100 mls @ 200 mls/hr IVPB Q8H-IV [facility] ; Protocol Last Admin: 04/15/19 09:00 Dose: 200 mls/hr Lactobacillus Acidophilus (Bacid -) 1 tab PO DAILY [facility] Last Admin: 04/15/19 09:51 Dose: 1 tab Metoprolol Succinate (Toprol Xl -) 25 mg PO BID [facility] Last Admin: 04/15/19 09:51 Dose: 25 mg Mirtazapine (Remeron -) 15 mg PO HS [facility] Last Admin: 04/14/19 21:34 Dose: 15 mg Ondansetron HCl (Zofran Injection) 4 mg IVPB Q4H PRN PRN Reason: NAUSEA AND/OR VOMITING Pantoprazole Sodium (Protonix -) 40 mg PO DAILY [facility] Last Admin: 04/15/19 09:51 Dose: 40 mg - Objective Vital Signs: Vital Signs Temperature 98 F 04/15/19 09:00 Pulse Rate 60 04/15/19 09:00 Respiratory Rate 20 04/15/19 09:00 Blood Pressure 107/69 04/15/19 09:00 O2 Sat by Pulse Oximetry (%) 96 04/14/19 21:00 Constitutional: Yes: Anxious HENT: Yes: Atraumatic Neck: Yes: Supple Cardiovascular: Yes: Regular Rate and Rhythm Respiratory: Yes: CTA Bilaterally Gastrointestinal: Yes: Normal Bowel Sounds Extremities: Yes: WNL Edema: No Peripheral Pulses WNL: Yes Neurological: Yes: Alert Labs: CBC, BMP 04/15/19 05:55 04/15/19 05:55 INR, PTT INR 5.09 (0.83-1.09) H* 04/14/19 12:20 Problem List - Problems (1) LILLIE (acute kidney injury) Assessment/Plan: cr went up hold diuretics need renal input Code(s): N17.9 - ACUTE KIDNEY FAILURE, UNSPECIFIED (2) Elevated troponin Assessment/Plan: stable Code(s): R74.8 - ABNORMAL LEVELS OF OTHER SERUM ENZYMES (3) CHF (congestive heart failure) Assessment/Plan: on aldactone only now cardiology note reviewed Code(s): I50.9 - HEART FAILURE, UNSPECIFIED (4) Dementia Code(s): F03.90 - UNSPECIFIED DEMENTIA WITHOUT BEHAVIORAL DISTURBANCE (5) GERD (gastroesophageal reflux disease) Assessment/Plan: on protonix Code(s): K21.9 - GASTRO-ESOPHAGEAL REFLUX DISEASE WITHOUT ESOPHAGITIS (6) Atrial fibrillation Assessment/Plan: off of anticoagulant due to hepatic failure Code(s): I48.91 - UNSPECIFIED ATRIAL FIBRILLATION Qualifiers: Atrial fibrillation type: paroxysmal Qualified Code(s): I48.0 - Paroxysmal atrial fibrillation (7) HTN (hypertension) Assessment/Plan: on meds monitor cardiology on board Code(s): I10 - ESSENTIAL (PRIMARY) HYPERTENSION (8) Positive blood culture Code(s): R78.81 - BACTEREMIA (9) Poor appetite Assessment/Plan: gi eval noted Code(s): R63.0 - ANOREXIA (10) Hypokalemia Assessment/Plan: on supplement Code(s): E87.6 - HYPOKALEMIA (11) Dehydration Code(s): E86.0 - DEHYDRATION (12) Failure to thrive Code(s): [id number] - (13) Pacemaker Code(s): Z95.0 - PRESENCE OF CARDIAC PACEMAKER (14) Feeding difficulty in elderly Code(s): R63.3 - FEEDING DIFFICULTIES (15) Abnormal liver function test Assessment/Plan: possibly due to worsening heart failure? monitor Code(s): R94.5 - ABNORMAL RESULTS OF LIVER FUNCTION STUDIES
[2019-04-15] MEDS ORDERED: AMPICILLIN SODIUM 2 GM VIAL ONE (17:12)
[2019-04-15] MEDS ORDERED: SODIUM CHLORIDE 100 ML IVPB ONE (17:13)
[2019-04-15] MEDS ORDERED: LORazepam 2 MG/ML SDV VIAL IVPUSH PRN (18:17)
[2019-04-15 19:35] LABS: INR 2.98 (0.83-1.09); PROTHROMBIN TIME (PATIENT) 35.6 SEC (9.7-13.0)
[2019-04-15] MEDS: MIRTAZAPINE 15 MG TABLET (FP) PO SCH ×2 (22:12→22:28)
[2019-04-16 00:25] VITALS: BMI 22.4
[2019-04-16] MEDS ORDERED: AMPICILLIN SODIUM 2 GM VIAL ONE ×3 (00:59→16:46)
[2019-04-16] MEDS ORDERED: SODIUM CHLORIDE 100 ML IVPB ONE ×3 (00:59→16:47)
[2019-04-16] MEDS: AMPICILLIN - 2 GM in SODIUM CHLORIDE 100 ML IVPB SCH ×3 (01:06→17:27)
--- NOTE | 2019-04-16 07:42 | PN.GI ---
GI Progress Note Subjective: CT SCAN REVIEWED -- NO OBSTRUCTIVE LESION NOTED LFT DOWNTRENDING SOMEWHAT C/W DIET TOLERATED MONITOR LFT QD WHILE HOSPITALIZED DAUGHTER ? LEANING TOWARD COMFORT CARE CONSIDERING HER POOR QUALITY OF LIFE AND COMORBIDITIES. - Objective Vital Signs: Vital Signs Temperature 97.6 F 04/16/19 04:00 Pulse Rate 61 04/16/19 04:00 Respiratory Rate 20 04/16/19 04:00 Blood Pressure 117/68 04/16/19 04:00 O2 Sat by Pulse Oximetry (%) 99 04/15/19 21:00 Labs: CBC, BMP 04/15/19 05:55 04/15/19 05:55 INR, PTT INR 2.98 (0.83-1.09) H 04/15/19 18:30 Problem List - Problems (1) Abnormal liver function test Code(s): R94.5 - ABNORMAL RESULTS OF LIVER FUNCTION STUDIES (2) Elevated troponin Code(s): R74.8 - ABNORMAL LEVELS OF OTHER SERUM ENZYMES (3) Failure to thrive Code(s): [id number] -
[2019-04-16] MEDS: LACTOBACILLUS ACIDOPHILUS 1 TABLET PO SCH (09:16)
[2019-04-16] MEDS: metoPROLOL SUCCINATE 25 MG TAB.SR.24H (FP) PO SCH ×2 (09:16→21:04)
[2019-04-16] MEDS: PANTOPRAZOLE 40 MG TABLET (FP) PO SCH (09:16)
--- NOTE | 2019-04-16 10:59 | PN ---
Progress Note, Physician Chief Complaint: laying comfortably in bed When I enter room she becomes anxious and begins moaning and breathing more rapidly- indicates component of anxiety. TELE: NSR, a-pacing, V couplets. Denies CP or SOB. "I just want to really go home" History of Present Illness: no weight today awaiting labs CT A/P pending read. - Current Medication List Current Medications: Active Medications Ampicillin Sodium 2 gm/ Sodium (Chloride) 100 mls @ 200 mls/hr IVPB Q8H-IV [facility] ; Protocol Last Admin: 04/16/19 09:16 Dose: 200 mls/hr Lactobacillus Acidophilus (Bacid -) 1 tab PO DAILY [facility] Last Admin: 04/16/19 09:16 Dose: 1 tab Lorazepam (Ativan Injection -) 0.5 mg IVPUSH Q6H PRN PRN Reason: ANXIETY Metoprolol Succinate (Toprol Xl -) 25 mg PO BID [facility] Last Admin: 04/16/19 09:16 Dose: 25 mg Mirtazapine (Remeron -) 15 mg PO HS [facility] Last Admin: 04/15/19 22:28 Dose: 15 mg Ondansetron HCl (Zofran Injection) 4 mg IVPB Q4H PRN PRN Reason: NAUSEA AND/OR VOMITING Pantoprazole Sodium (Protonix -) 40 mg PO DAILY [facility] Last Admin: 04/16/19 09:16 Dose: 40 mg - Objective Vital Signs: Vital Signs Temperature 97.8 F 04/16/19 09:00 Pulse Rate 68 04/16/19 09:00 Respiratory Rate 18 04/16/19 09:00 Blood Pressure 120/74 04/16/19 09:00 O2 Sat by Pulse Oximetry (%) 99 04/15/19 21:00 Constitutional: Yes: No Distress Cardiovascular: Yes: Regular Rate and Rhythm, JVD (chronic JVD) Respiratory: Yes: Other (mildly decreased basilar breath sounds/ no wheezing/ no clear rales.) Gastrointestinal: Yes: Soft (NT) Edema: No (cool) Peripheral Pulses WNL: Yes Neurological: Yes: Alert Labs: CBC, BMP 04/15/19 05:55 04/15/19 05:55 INR, PTT INR 2.98 (0.83-1.09) H 04/15/19 18:30 - ....Imaging EKG: Image Reviewed Assessment/Plan IMP: Severe chronic MR with chronic valvular CHF PAF s/p PPM Bacteremia, possible IE on senior care IV abx CKD with acute renal failure Worsening transaminitis and coagulopathy, liver failure of unclear etiology likely multifactorial REC: 1. Case was discussed with her primary electronics mechanic apprentice Dr. Bagley, renal and GI team here Wednesday. Lasix was resumed with the thinking that worsened renal function and liver fx could be reflective of poor cardiac output (passive hepatic congestion and cardiorenal syndrome). May benefit from ionotropic supported diuresis for palliative purposes. 2. Off AC now due to acute liver failure and coagulopathy. 3. Long d/w daughter yesterday re patients poor prognosis and limited medical treatment options. I explained that without surgical correction of severe MR (she has been deemed not a candidate for due to cognitive decline and poor functional status by her primary electronics mechanic apprentice who has followed her closely and with whom patient has a long standing relationship), mortality is high and life expectancy is likely < 6 months. I discussed that Ms. Phan's quality of life has been extremely poor over the last 3 months due to recurrent CHF, hypoxia, intermittent organ failure and she has spent the majority of her days in hospital. Isa agreed with this. I recommended that goals of care be defined, including code status and recommended that a DNR/DNI would be appropriate. Isa agreed and stated that he mother had a DNR order in effect 25 years ago but that she was now conflicted about instituting it during these hospitalizations because her mother has expressed "a will to live" during "more lucid moments". Isa stated she would discuss the advanced directive with her parents again and give us direction. I also discussed hospice care, which I think is appropriate at this time. Daughter is leaning toward hospice care as well but was not certain if she prefers [place] vs home hospice.
[2019-04-16 14:25] LABS: BILIRUBIN,TOTAL 1.3 mg/dL (0.2-1); BLOOD UREA NITROGEN 96.7 mg/dL (7-18); CREATININE 2.9 mg/dL (0.55-1.3); POTASSIUM 3.3 mmol/L (3.5-5.1); TOT PROT 6.4 g/dl (6.4-8.2)
--- NOTE | 2019-04-16 16:09 | PN ---
Progress Note (short form) - Note Progress Note: RENAL smiling more today comfortable Last Vital Signs Temp Pulse Resp BP Pulse Ox 98.3 F 64 22 H 119/73 99 04/16/19 13:37 04/16/19 13:37 04/16/19 13:37 04/16/19 13:37 04/15/19 21:00 lying flat comfortably lungs clear cvs s1s2 rr +DESIREE abd soft ext no edema CBC, BMP 04/15/19 05:55 04/16/19 12:52 Current Medications Generic Name Dose Route Start Last Admin Trade Name Freq PRN Reason Stop Dose Admin Ampicillin Sodium 2 gm/ Sodium 100 mls @ 200 mls/hr 04/14/19 18:00 04/16/19 09:16 Chloride IVPB 200 mls/hr Q8H-IV [facility] Administration Protocol Lactobacillus Acidophilus 1 tab 03/31/19 12:00 04/16/19 09:16 Bacid - PO 1 tab DAILY [facility] Administration Lorazepam 0.5 mg 04/15/19 18:17 Ativan Injection - IVPUSH Q6H PRN ANXIETY Metoprolol Succinate 25 mg 04/09/19 10:15 04/16/19 09:16 Toprol Xl - PO 25 mg BID [facility] Administration Mirtazapine 15 mg 03/28/19 22:00 04/15/19 22:28 Remeron - PO 15 mg HS [facility] Administration Ondansetron HCl 4 mg 04/08/19 15:37 Zofran Injection IVPB Q4H PRN NAUSEA AND/OR VOMITING Pantoprazole Sodium 40 mg 03/28/19 13:00 04/16/19 09:16 Protonix - PO 40 mg DAILY [facility] Administration Impression 1. LILLIE 2. chf 3. mitral regurg 4. dementia 5. a-fib 6. hld 7. solitary right kidney 8. UTI 9. right side hydro 10. bacteremia 11. hypernatremia 12. hypokalemia 13. transaminitis maybe related to antibiotics- improved Plan -antibiotics per ID. -would give 1/2 ns with bicarb -GOC MV
[2019-04-16] MEDS ORDERED: SODIUM CHLORIDE 0.45% 1,000 ML IV SCH (16:15)
--- NOTE | 2019-04-16 16:22 | PN ---
Progress Note, Physician - Current Medication List Current Medications: Active Medications Ampicillin Sodium 2 gm/ Sodium (Chloride) 100 mls @ 200 mls/hr IVPB Q8H-IV [facility] ; Protocol Last Admin: 04/16/19 09:16 Dose: 200 mls/hr Sodium Bicarbonate 50 meq/ (Sodium Chloride) 1,050 mls @ 75 mls/hr IV Q14H [facility] Lactobacillus Acidophilus (Bacid -) 1 tab PO DAILY [facility] Last Admin: 04/16/19 09:16 Dose: 1 tab Lorazepam (Ativan Injection -) 0.5 mg IVPUSH Q6H PRN PRN Reason: ANXIETY Metoprolol Succinate (Toprol Xl -) 25 mg PO BID [facility] Last Admin: 04/16/19 09:16 Dose: 25 mg Mirtazapine (Remeron -) 15 mg PO HS [facility] Last Admin: 04/15/19 22:28 Dose: 15 mg Ondansetron HCl (Zofran Injection) 4 mg IVPB Q4H PRN PRN Reason: NAUSEA AND/OR VOMITING Pantoprazole Sodium (Protonix -) 40 mg PO DAILY [facility] Last Admin: 04/16/19 09:16 Dose: 40 mg - Objective Vital Signs: Vital Signs Temperature 98.3 F 04/16/19 13:37 Pulse Rate 64 04/16/19 13:37 Respiratory Rate 22 H 04/16/19 13:37 Blood Pressure 119/73 04/16/19 13:37 O2 Sat by Pulse Oximetry (%) 99 04/15/19 21:00 Constitutional: Yes: Anxious HENT: Yes: Atraumatic Neck: Yes: Supple Cardiovascular: Yes: Regular Rate and Rhythm Respiratory: Yes: CTA Bilaterally Gastrointestinal: Yes: Normal Bowel Sounds Extremities: Yes: WNL Edema: No Peripheral Pulses WNL: Yes Neurological: Yes: Alert Labs: CBC, BMP 04/15/19 05:55 04/16/19 12:52 INR, PTT INR 2.98 (0.83-1.09) H 04/15/19 18:30 Problem List - Problems (1) LILLIE (acute kidney injury) Code(s): N17.9 - ACUTE KIDNEY FAILURE, UNSPECIFIED (2) Elevated troponin Code(s): R74.8 - ABNORMAL LEVELS OF OTHER SERUM ENZYMES (3) CHF (congestive heart failure) Assessment/Plan: off of diuretics Code(s): I50.9 - HEART FAILURE, UNSPECIFIED (4) Dementia Code(s): F03.90 - UNSPECIFIED DEMENTIA WITHOUT BEHAVIORAL DISTURBANCE (5) GERD (gastroesophageal reflux disease) Assessment/Plan: on protonix Code(s): K21.9 - GASTRO-ESOPHAGEAL REFLUX DISEASE WITHOUT ESOPHAGITIS (6) Atrial fibrillation Assessment/Plan: on meds Code(s): I48.91 - UNSPECIFIED ATRIAL FIBRILLATION Qualifiers: Atrial fibrillation type: paroxysmal Qualified Code(s): I48.0 - Paroxysmal atrial fibrillation (7) HTN (hypertension) Assessment/Plan: on meds monitor cardiology on board Code(s): I10 - ESSENTIAL (PRIMARY) HYPERTENSION (8) Positive blood culture Code(s): R78.81 - BACTEREMIA (9) Poor appetite Assessment/Plan: on ensure Code(s): R63.0 - ANOREXIA (10) Hypokalemia Assessment/Plan: on supplement Code(s): E87.6 - HYPOKALEMIA (11) Dehydration Assessment/Plan: dc lasix Code(s): E86.0 - DEHYDRATION (12) Failure to thrive Code(s): [id number] - (13) Pacemaker Code(s): Z95.0 - PRESENCE OF CARDIAC PACEMAKER (14) Feeding difficulty in elderly Code(s): R63.3 - FEEDING DIFFICULTIES (15) Abnormal liver function test Assessment/Plan: trending down Code(s): R94.5 - ABNORMAL RESULTS OF LIVER FUNCTION STUDIES
[2019-04-16] MEDS: SODIUM BICARBONATE 8.4% - 50 MEQ in SODIUM CHLORIDE 0.45% 1,000 ML IV SCH (20:00)
[2019-04-16] MEDS: MIRTAZAPINE 15 MG TABLET (FP) PO SCH (21:04)
[2019-04-17] MEDS ORDERED: AMPICILLIN SODIUM 2 GM VIAL ONE ×3 (02:44→17:05)
[2019-04-17] MEDS ORDERED: SODIUM CHLORIDE 100 ML IVPB ONE ×3 (02:44→17:05)
[2019-04-17] MEDS: AMPICILLIN - 2 GM in SODIUM CHLORIDE 100 ML IVPB SCH ×3 (02:45→17:10)
[2019-04-17] MEDS: SODIUM BICARBONATE 8.4% - 50 MEQ in SODIUM CHLORIDE 0.45% 1,000 ML IV SCH (09:51)
[2019-04-17] MEDS: LACTOBACILLUS ACIDOPHILUS 1 TABLET PO SCH (09:52)
[2019-04-17] MEDS: metoPROLOL SUCCINATE 25 MG TAB.SR.24H (FP) PO SCH ×2 (09:52→21:30)
[2019-04-17] MEDS: PANTOPRAZOLE 40 MG TABLET (FP) PO SCH (09:52)
--- NOTE | 2019-04-17 11:04 | PN ---
Progress Note, Physician Chief Complaint: weakness History of Present Illness: extremely weak, tired. no sob. no cp, palp no cigs - Current Medication List Current Medications: Active Medications Ampicillin Sodium 2 gm/ Sodium (Chloride) 100 mls @ 200 mls/hr IVPB Q8H-IV [facility] ; Protocol Last Admin: 04/17/19 09:51 Dose: 200 mls/hr Sodium Bicarbonate 50 meq/ (Sodium Chloride) 1,050 mls @ 75 mls/hr IV Q14H [facility] Last Admin: 04/17/19 09:51 Dose: 75 mls/hr Lactobacillus Acidophilus (Bacid -) 1 tab PO DAILY [facility] Last Admin: 04/17/19 09:52 Dose: 1 tab Lorazepam (Ativan Injection -) 0.5 mg IVPUSH Q6H PRN PRN Reason: ANXIETY Metoprolol Succinate (Toprol Xl -) 25 mg PO BID [facility] Last Admin: 04/17/19 09:52 Dose: 25 mg Mirtazapine (Remeron -) 15 mg PO HS [facility] Last Admin: 04/16/19 21:04 Dose: 15 mg Ondansetron HCl (Zofran Injection) 4 mg IVPB Q4H PRN PRN Reason: NAUSEA AND/OR VOMITING Pantoprazole Sodium (Protonix -) 40 mg PO DAILY [facility] Last Admin: 04/17/19 09:52 Dose: 40 mg - Objective Vital Signs: Vital Signs Temperature 97.1 F L 04/17/19 10:00 Pulse Rate 62 04/17/19 10:00 Respiratory Rate 20 04/17/19 10:00 Blood Pressure 113/69 04/17/19 10:00 O2 Sat by Pulse Oximetry (%) 99 04/16/19 20:31 Constitutional: Yes: Well Nourished, No Distress, Calm Eyes: No: Sclera Icterus HENT: No: Nasal Congestion Cardiovascular: Yes: Regular Rate and Rhythm, JVD, Murmur (MR murmur unchanged) , S1, S2. No: Gallop Respiratory: Yes: Regular, CTA Bilaterally. No: Accessory Muscle Use, Rales, Wheezes Gastrointestinal: Yes: Normal Bowel Sounds, Soft. No: Tenderness Musculoskeletal: Yes: Other (No kyphosis) Extremities: No: Cold Edema: No Integumentary: No: Jaundice Neurological: Yes: Alert. No: Seizure Psychiatric: No: Agitated Labs: CBC, BMP 04/15/19 05:55 04/16/19 12:52 INR, PTT INR 2.98 (0.83-1.09) H 04/15/19 18:30 Assessment/Plan tele: NSR IMP: Severe chronic MR with chronic valvular CHF PAF s/p PPM Bacteremia, possible IE on custodial IV abx CKD with acute renal failure Worsening transaminitis and coagulopathy, liver failure of unclear etiology likely multifactorial REC: 1. Case was discussed with her primary marine mechanic Dr. Bagley, renal and GI team here 04/14, with CXR clear and CT abdomen only minimal pleural effusions. Lasix was resumed with the thinking that worsened renal function and liver fx could be reflective of poor cardiac output (passive hepatic congestion and cardiorenal syndrome). May benefit from ionotropic supported diuresis for palliative purposes. significant weight gain vs prior discharge wt. lasix held by renal over weekend, 1/ NS with bicarb started yest evening 75 cc/ hr. renal fxn worse today. remains with JVD--observe x 24 hrs, with plans to stop fluids and diurese aggressively if renal fxn worsens of signif interval wt gain/edema/sob. ditto if worsening LFTs without explanation and GI feels this is congestive etiology. check cxr 2. Off AC now due to acute liver failure and coagulopathy. 3. severe transaminitis -w/u by GI unrevealing, statin held -? congestive-as above 4. dispo/goals of care: Dr Lamas had long d/w daughter 04/15 re patients poor prognosis and limited medical treatment options: -explained that without surgical correction of severe MR (she has been deemed not a candidate for due to cognitive decline and poor functional status by her primary marine mechanic who has followed her closely and with whom patient has a long standing relationship), mortality is high and life expectancy is likely < 6 months; -discussed that Ms. Phan's quality of life has been extremely poor over the last 3 months due to recurrent CHF, hypoxia, intermittent organ failure and she has spent the majority of her days in hospital. Isa agreed with this. -recommended that goals of care be defined, including code status and recommended that a DNR/DNI would be appropriate. Isa agreed and stated that he mother had a DNR order in effect 25 years ago but that she was now conflicted about instituting it during these hospitalizations because her mother has expressed "a will to live" during "more lucid moments". Isa stated she would discuss the advanced directive with her parents again and give us direction. -discussed hospice care, which I think is appropriate at this time. Daughter is leaning toward hospice care as well but was not certain if she prefers [place] vs home hospice.
[2019-04-17 11:51] LABS: ALBUMIN 2.1 g/dl (3.4-5.0); BILIRUBIN,DIRECT 1.1 mg/dL (0.0-0.2); BILIRUBIN,TOTAL 1.5 mg/dL (0.2-1); BLOOD UREA NITROGEN 98.6 mg/dL (7-18); CALCIUM 7.5 mg/dL (8.5-10.1); CREATININE 2.8 mg/dL (0.55-1.3); POTASSIUM 3.1 mmol/L (3.5-5.1); TOT PROT 6.2 g/dl (6.4-8.2)
--- NOTE | 2019-04-17 12:33 | PN ---
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
--- NOTE | 2019-04-17 13:10 | PN ---
Progress Note (short form) - Note Progress Note: remains fatigued eating poorly no abdominal pain Vital Signs Period Temp Pulse Resp BP Sys/Rice Pulse Ox Last 24 Hr 97.1 F-98.3 F 59-69 20-22 107-119/63-73 99 cor-rrr llungs decreased bs t bases abd soft,nt ext trace edema CBC, BMP 04/15/19 05:55 04/17/19 10:20 Microbiology 03/28/19 17:00 Blood - Peripheral Venous Blood Culture - Final NO GROWTH AFTER 5 DAYS INCUBATION 03/28/19 17:00 Blood - Peripheral Venous Blood Culture - Final NO GROWTH AFTER 5 DAYS INCUBATION 03/27/19 15:55 Blood - Peripheral Venous Blood Culture - Final Enterococcus Faecalis 03/27/19 15:55 Blood - Peripheral Venous Blood Culture - Final Enterococcus Faecalis 03/27/19 16:34 Urine - Urine Clean Catch Urine Culture - Final Contaminated: Please Repeat echo+valvular disease, no obvious vegetations noted a/p enterococcal bacteremia-cannot r/o endocarditis with valvular heart disease and PPM pyuria on admission valvular heart disease PPM lillie/ckd- worsening continue ampicillin- day #1-dose adjusted for renal failure abnl lfts- off ceftriaxone since 04/12, lfts appear to have peaked, ct scan abd/ pelvis unrevealing family considering hospice d/w daughter at bedside Problem List - Problems (1) Positive blood culture Code(s): R78.81 - BACTEREMIA (2) LILLIE (acute kidney injury) Code(s): N17.9 - ACUTE KIDNEY FAILURE, UNSPECIFIED (3) Mitral valve regurgitation Code(s): I34.0 - NONRHEUMATIC MITRAL (VALVE) INSUFFICIENCY (4) Pacemaker Code(s): Z95.0 - PRESENCE OF CARDIAC PACEMAKER
--- NOTE | 2019-04-17 13:32 | PN ---
Progress Note (short form) - Note Progress Note: GI follow up Pt taking sips of liquids No abdominal pain Vital Signs Temp 97.1 F L 04/17/19 10:00 Pulse 62 04/17/19 10:00 Resp 20 04/17/19 10:00 BP 113/69 04/17/19 10:00 Pulse Ox 99 04/16/19 20:31 Chronically ill appearing Hepatic Panel Total Bilirubin 1.5 mg/dL (0.2-1) H 04/17/19 10:20 Direct Bilirubin 1.1 mg/dL (0.0-0.2) H 04/17/19 10:20 AST 879 U/L (15-37) H 04/17/19 10:20 ALT 1054 U/L (13-61) H 04/17/19 10:20 Alkaline Phosphatase 935 U/L (45-117) H 04/17/19 10:20 Albumin 2.1 g/dl (3.4-5.0) L 04/17/19 10:20 INR, PTT INR 2.98 (0.83-1.09) H 04/15/19 18:30 Imp: LFTs - likely DILI - appear to have peaked on weekend and are downtrending Would trend LFTs and INR daily Avoid hepatotoxins Please call us back if LFTs begin to rise again
--- NOTE | 2019-04-17 15:36 | PN ---
Progress Note, Physician History of Present Illness: Pt seen and examined at bedside. She appears fatigued. She denies shortness of breath but is confused. - Current Medication List Current Medications: Active Medications Ampicillin Sodium 2 gm/ Sodium (Chloride) 100 mls @ 200 mls/hr IVPB Q8H-IV [facility] ; Protocol Last Admin: 04/17/19 09:51 Dose: 200 mls/hr Sodium Bicarbonate 50 meq/ (Sodium Chloride) 1,050 mls @ 75 mls/hr IV Q14H [facility] Last Admin: 04/17/19 09:51 Dose: 75 mls/hr Lactobacillus Acidophilus (Bacid -) 1 tab PO DAILY [facility] Last Admin: 04/17/19 09:52 Dose: 1 tab Lorazepam (Ativan Injection -) 0.5 mg IVPUSH Q6H PRN PRN Reason: ANXIETY Metoprolol Succinate (Toprol Xl -) 25 mg PO BID [facility] Last Admin: 04/17/19 09:52 Dose: 25 mg Mirtazapine (Remeron -) 15 mg PO HS [facility] Last Admin: 04/16/19 21:04 Dose: 15 mg Ondansetron HCl (Zofran Injection) 4 mg IVPB Q4H PRN PRN Reason: NAUSEA AND/OR VOMITING Pantoprazole Sodium (Protonix -) 40 mg PO DAILY [facility] Last Admin: 04/17/19 09:52 Dose: 40 mg - Objective Vital Signs: Vital Signs Temperature 64.4 F L 04/17/19 14:00 Pulse Rate 71 04/17/19 14:00 Respiratory Rate 20 04/17/19 14:00 Blood Pressure 102/64 04/17/19 14:00 O2 Sat by Pulse Oximetry (%) 99 04/17/19 09:00 Constitutional: Yes: Mild Distress Cardiovascular: Yes: S1, S2 Respiratory: Yes: On Nasal O2 Gastrointestinal: Yes: Normal Bowel Sounds, Soft Genitourinary: Yes: Incontinence Musculoskeletal: Yes: Muscle Weakness Edema: No Neurological: Yes: Confusion Labs: CBC, BMP 04/15/19 05:55 04/17/19 10:20 INR, PTT INR 2.98 (0.83-1.09) H 04/15/19 18:30 Problem List - Problems (1) LILLIE (acute kidney injury) Code(s): N17.9 - ACUTE KIDNEY FAILURE, UNSPECIFIED (2) Hypernatremia Code(s): E87.0 - HYPEROSMOLALITY AND HYPERNATREMIA Assessment/Plan Current Medications Generic Name Dose Route Start Last Admin Trade Name Freq PRN Reason Stop Dose Admin Ampicillin Sodium 2 gm/ Sodium 100 mls @ 200 mls/hr 04/14/19 18:00 04/17/19 09:51 Chloride IVPB 200 mls/hr Q8H-IV [facility] Administration Protocol Sodium Bicarbonate 50 meq/ 1,050 mls @ 75 mls/hr 04/16/19 17:00 04/17/19 09: 51 Sodium Chloride IV 75 mls/hr Q14H [facility] Administration Lactobacillus Acidophilus 1 tab 03/31/19 12:00 04/17/19 09:52 Bacid - PO 1 tab DAILY [facility] Administration Lorazepam 0.5 mg 04/15/19 18:17 Ativan Injection - IVPUSH Q6H PRN ANXIETY Metoprolol Succinate 25 mg 04/09/19 10:15 04/17/19 09:52 Toprol Xl - PO 25 mg BID [facility] Administration Mirtazapine 15 mg 03/28/19 22:00 04/16/19 21:04 Remeron - PO 15 mg HS [facility] Administration Ondansetron HCl 4 mg 04/08/19 15:37 Zofran Injection IVPB Q4H PRN NAUSEA AND/OR VOMITING Pantoprazole Sodium 40 mg 03/28/19 13:00 04/17/19 09:52 Protonix - PO 40 mg DAILY [facility] Administration Impression 1. LILLIE 2. chf 3. mitral regurg 4. dementia 5. a-fib 6. hld 7. solitary right kidney 8. UTI 9. right side hydro 10. bacteremia 11. hypernatremia 12. hypokalemia 13. transaminitis Plan - change fluids to clinimix and decrease rate - repeat labs in am - monitor renal function - am cxr - family discussing GOC - overall prognosis is poor and family are considering hospice - monitor lft and coags
[2019-04-17] MEDS ORDERED: AMINO ACIDS 4.25%/D5W 1,000 ML IV SCH (15:45)
[2019-04-17] MEDS ORDERED: SODIUM BICARBONATE 650 MG TABLET PO ONE (16:15)
[2019-04-17] MEDS: POTASSIUM CHLORIDE 10 MEQ in AMINO ACIDS 4.25%/D5W 1,000 ML IVPB SCH (17:23)
--- NOTE | 2019-04-17 17:49 | PN ---
Progress Note, Physician History of Present Illness: on ensure - Current Medication List Current Medications: Active Medications Ampicillin Sodium 2 gm/ Sodium (Chloride) 100 mls @ 200 mls/hr IVPB Q8H-IV [facility] ; Protocol Last Admin: 04/17/19 17:10 Dose: 200 mls/hr Potassium Chloride 10 meq/ (Amino Acids) 1,005 mls @ 60 mls/hr IVPB Q17H [facility] Last Admin: 04/17/19 17:23 Dose: 60 mls/hr Lactobacillus Acidophilus (Bacid -) 1 tab PO DAILY [facility] Last Admin: 04/17/19 09:52 Dose: 1 tab Lorazepam (Ativan Injection -) 0.5 mg IVPUSH Q6H PRN PRN Reason: ANXIETY Metoprolol Succinate (Toprol Xl -) 25 mg PO BID [facility] Last Admin: 04/17/19 09:52 Dose: 25 mg Mirtazapine (Remeron -) 15 mg PO HS [facility] Last Admin: 04/16/19 21:04 Dose: 15 mg Ondansetron HCl (Zofran Injection) 4 mg IVPB Q4H PRN PRN Reason: NAUSEA AND/OR VOMITING Pantoprazole Sodium (Protonix -) 40 mg PO DAILY [facility] Last Admin: 04/17/19 09:52 Dose: 40 mg - Objective Vital Signs: Vital Signs Temperature 64.4 F L 04/17/19 14:00 Pulse Rate 71 04/17/19 14:00 Respiratory Rate 20 04/17/19 14:00 Blood Pressure 102/64 04/17/19 14:00 O2 Sat by Pulse Oximetry (%) 99 04/17/19 09:00 Constitutional: Yes: No Distress HENT: Yes: Atraumatic Neck: Yes: Supple Cardiovascular: Yes: Regular Rate and Rhythm Respiratory: Yes: CTA Bilaterally Gastrointestinal: Yes: Normal Bowel Sounds Extremities: Yes: WNL Edema: No Neurological: Yes: Alert Labs: CBC, BMP 04/15/19 05:55 04/17/19 10:20 INR, PTT INR 2.98 (0.83-1.09) H 04/15/19 18:30 Problem List - Problems (1) LILLIE (acute kidney injury) Assessment/Plan: cr improving hyration Code(s): N17.9 - ACUTE KIDNEY FAILURE, UNSPECIFIED (2) Elevated troponin Code(s): R74.8 - ABNORMAL LEVELS OF OTHER SERUM ENZYMES (3) CHF (congestive heart failure) Assessment/Plan: off of diuretics stable Code(s): I50.9 - HEART FAILURE, UNSPECIFIED (4) Dementia Code(s): F03.90 - UNSPECIFIED DEMENTIA WITHOUT BEHAVIORAL DISTURBANCE (5) GERD (gastroesophageal reflux disease) Assessment/Plan: on protonix Code(s): K21.9 - GASTRO-ESOPHAGEAL REFLUX DISEASE WITHOUT ESOPHAGITIS (6) Atrial fibrillation Assessment/Plan: on meds Code(s): I48.91 - UNSPECIFIED ATRIAL FIBRILLATION Qualifiers: Atrial fibrillation type: paroxysmal Qualified Code(s): I48.0 - Paroxysmal atrial fibrillation (7) HTN (hypertension) Assessment/Plan: on meds monitor cardiology on board Code(s): I10 - ESSENTIAL (PRIMARY) HYPERTENSION (8) Positive blood culture Assessment/Plan: on abx id consult Code(s): R78.81 - BACTEREMIA (9) Poor appetite Assessment/Plan: on ensure Code(s): R63.0 - ANOREXIA (10) Hypokalemia Assessment/Plan: on supplement Code(s): E87.6 - HYPOKALEMIA (11) Dehydration Assessment/Plan: dc lasix Code(s): E86.0 - DEHYDRATION (12) Failure to thrive Code(s): [id number] - (13) Pacemaker Code(s): Z95.0 - PRESENCE OF CARDIAC PACEMAKER (14) Feeding difficulty in elderly Assessment/Plan: on ensure calorie count Code(s): R63.3 - FEEDING DIFFICULTIES (15) Abnormal liver function test Assessment/Plan: trending down Code(s): R94.5 - ABNORMAL RESULTS OF LIVER FUNCTION STUDIES
[2019-04-17 21:07] LABS: HEP B CORE AB, TOT Negative (Negative)
[2019-04-17] MEDS: MIRTAZAPINE 15 MG TABLET (FP) PO SCH (21:30)
[2019-04-18] MEDS ORDERED: AMPICILLIN SODIUM 2 GM VIAL ONE ×3 (01:30→18:04)
[2019-04-18] MEDS ORDERED: SODIUM CHLORIDE 100 ML IVPB ONE ×3 (01:31→18:05)
[2019-04-18] MEDS: AMPICILLIN - 2 GM in SODIUM CHLORIDE 100 ML IVPB SCH ×3 (01:43→18:09)
[2019-04-18 07:29] LABS: INR 1.69 (0.83-1.09); PROTHROMBIN TIME (PATIENT) 20.1 SEC (9.7-13.0)
[2019-04-18 07:31] LABS: ACTIVATED PTT 30.1 SECONDS (25.2-36.5)
[2019-04-18 08:00] LABS: ALBUMIN 1.8 g/dl (3.4-5.0); BILIRUBIN,TOTAL 1.1 mg/dL (0.2-1); BLOOD UREA NITROGEN 100.7 mg/dL (7-18); CALCIUM 7.5 mg/dL (8.5-10.1); CREATININE 2.6 mg/dL (0.55-1.3); MAGNESIUM 2.3 mg/dL (1.8-2.4); TOT PROT 5.8 g/dl (6.4-8.2)
[2019-04-18 08:36] LABS: POTASSIUM 2.9 mmol/L (3.5-5.1)
[2019-04-18] MEDS: metoPROLOL SUCCINATE 25 MG TAB.SR.24H (FP) PO SCH ×2 (09:24→21:42)
[2019-04-18] MEDS: LACTOBACILLUS ACIDOPHILUS 1 TABLET PO SCH (09:24)
[2019-04-18] MEDS: PANTOPRAZOLE 40 MG TABLET (FP) PO SCH (09:24)
--- NOTE | 2019-04-18 10:39 | PN ---
Progress Note, Physician Chief Complaint: shouting "Isa!" (daughter's name) Denies CP Intermittent SOB TELE: NSR History of Present Illness: K+ low, being repleted. - Current Medication List Current Medications: Active Medications Albuterol Sulfate (Ventolin 0.083% Nebulizer Soln -) 1 amp NEB Q6H PRN PRN Reason: SHORT OF BREATH/WHEEZING Ampicillin Sodium 2 gm/ Sodium (Chloride) 100 mls @ 200 mls/hr IVPB Q8H-IV [facility] ; Protocol Last Admin: 04/18/19 09:24 Dose: 200 mls/hr Potassium Chloride 10 meq/ (Amino Acids) 1,005 mls @ 60 mls/hr IVPB Q17H [facility] Last Admin: 04/17/19 17:23 Dose: 60 mls/hr Potassium Chloride (Potassium Chloride 10 Meq Premix Ivpb -) 10 meq in 100 mls @ 100 mls/hr IVPB Q60M [facility] Stop: 04/18/19 13:44 Lactobacillus Acidophilus (Bacid -) 1 tab PO DAILY [facility] Last Admin: 04/18/19 09:24 Dose: 1 tab Lorazepam (Ativan Injection -) 0.5 mg IVPUSH Q6H PRN PRN Reason: ANXIETY Metoprolol Succinate (Toprol Xl -) 25 mg PO BID [facility] Last Admin: 04/18/19 09:24 Dose: 25 mg Mirtazapine (Remeron -) 15 mg PO HS [facility] Last Admin: 04/17/19 21:30 Dose: 15 mg Ondansetron HCl (Zofran Injection) 4 mg IVPB Q4H PRN PRN Reason: NAUSEA AND/OR VOMITING Pantoprazole Sodium (Protonix -) 40 mg PO DAILY [facility] Last Admin: 04/18/19 09:24 Dose: 40 mg Potassium Chloride (Potassium Chloride Oral Liquid) 40 meq PO DAILY [facility] - Objective Vital Signs: Vital Signs Temperature 98.2 F 04/18/19 09:10 Pulse Rate 62 04/18/19 09:10 Respiratory Rate 19 04/18/19 09:10 Blood Pressure 123/71 04/18/19 09:10 O2 Sat by Pulse Oximetry (%) 100 04/17/19 21:00 Constitutional: Yes: No Distress Cardiovascular: Yes: Regular Rate and Rhythm Respiratory: Yes: CTA Bilaterally (no rales) Gastrointestinal: Yes: Soft (NT) Edema: Yes Edema: LLE: 1+, RLE: 1+ Neurological: Yes: Confusion Labs: CBC, BMP 04/15/19 05:55 04/18/19 06:40 INR, PTT INR 1.69 (0.83-1.09) H 04/18/19 06:40 Laboratory Tests 04/14/19 04/14/19 04/14/19 06:10 06:10 12:20 WBC 15.1 H Hgb 9.1 L Plt Count 196 INR 5.09 H* Sodium 146 H Potassium 3.3 L BUN Creatinine 2.3 H Direct Bilirubin AST > 1000 H ALT 790 H Alkaline Phosphatase 702 H Albumin 04/15/19 04/15/19 04/18/19 05:55 05:55 06:40 WBC 15.3 H Hgb 9.0 L Plt Count 168 INR Sodium 149 H 157 H Potassium 3.2 L 2.9 L* BUN 88.0 H Creatinine 2.6 H 2.6 H Direct Bilirubin 0.8 H AST 1571 H 580 H ALT 1131 H 865 H Alkaline Phosphatase 757 H 810 H Albumin 2.0 L - ....Imaging EKG: Image Reviewed Assessment/Plan IMP: Severe chronic MR with chronic valvular CHF PAF s/p PPM Bacteremia, possible IE on assisted IV abx CKD with acute renal failure Worsening transaminitis and coagulopathy, liver failure of unclear etiology likely multifactorial REC: 1. Case was discussed with her primary cotton wringer Dr. Bagley, renal and GI team here 04/14, with CXR clear and CT abdomen only minimal pleural effusions. -Lasix was resumed with the thinking that worsened renal function and liver fx could be reflective of poor cardiac output (passive hepatic congestion and cardiorenal syndrome). -May benefit from ionotropic supported diuresis for palliative purposes once hypernatremia improves -significant weight gain vs prior discharge wt. -lasix held by renal over weekend, 1/2 NS with bicarb started by renal over weekend for hypernatremia which remains unchanged. Rate decreased yesterday. -Renal fxn mildly improved -CXR largely unchanged -Weight up but ? accuracy given improvement in renal function and LFTs 2. Off AC now due to acute liver failure and coagulopathy. 3. severe transaminitis: improving -w/u by GI unrevealing, statin held -? congestive-as above 4. dispo/goals of care: I had long d/w daughter 04/15 re patients poor prognosis and limited medical treatment options: -explained that without surgical correction of severe MR (she has been deemed not a candidate for due to cognitive decline and poor functional status by her primary cotton wringer who has followed her closely and with whom patient has a long standing relationship), mortality is high and life expectancy is likely < 6 months; -discussed that Ms. Tanners quality of life has been extremely poor over the last 3 months due to recurrent CHF, hypoxia, intermittent organ failure and she has spent the majority of her days in hospital. Isa agreed with this. -recommended that goals of care be defined, including code status and recommended that a DNR/DNI would be appropriate. Isa agreed and stated that he mother had a DNR order in effect 25 years ago but that she was now conflicted about instituting it during these hospitalizations because her mother has expressed "a will to live" during "more lucid moments". Isa stated she would discuss the advanced directive with her parents again and give us direction. -discussed hospice care, which I think is appropriate at this time. Daughter is leaning toward hospice care as well but was not certain if she prefers [place] vs home hospice.
[2019-04-18] MEDS: POTASSIUM CHLORIDE ORAL LIQUID 20 MEQ/15 ML PO SCH (11:29)
[2019-04-18] MEDS: KCL 10 MEQ IVPB 10 MEQ/100 ML INFUS.BAG IVPB SCH ×3 (11:30→14:17)
[2019-04-18] MEDS: POTASSIUM CHLORIDE 10 MEQ in AMINO ACIDS 4.25%/D5W 1,000 ML IVPB SCH (15:06)
--- NOTE | 2019-04-18 16:00 | PN ---
Progress Note, Physician History of Present Illness: Pt seen and examined at bedside. SHe is awake but confused. She denies shortness of breath. - Current Medication List Current Medications: Active Medications Albuterol Sulfate (Ventolin 0.083% Nebulizer Soln -) 1 amp NEB Q6H PRN PRN Reason: SHORT OF BREATH/WHEEZING Ampicillin Sodium 2 gm/ Sodium (Chloride) 100 mls @ 200 mls/hr IVPB Q8H-IV [facility] ; Protocol Last Admin: 04/18/19 09:24 Dose: 200 mls/hr Potassium Chloride 10 meq/ (Amino Acids) 1,005 mls @ 60 mls/hr IVPB Q17H [facility] Last Admin: 04/18/19 15:06 Dose: 60 mls/hr Lactobacillus Acidophilus (Bacid -) 1 tab PO DAILY [facility] Last Admin: 04/18/19 09:24 Dose: 1 tab Lorazepam (Ativan Injection -) 0.5 mg IVPUSH Q6H PRN PRN Reason: ANXIETY Metoprolol Succinate (Toprol Xl -) 25 mg PO BID [facility] Last Admin: 04/18/19 09:24 Dose: 25 mg Mirtazapine (Remeron -) 15 mg PO HS [facility] Last Admin: 04/17/19 21:30 Dose: 15 mg Ondansetron HCl (Zofran Injection) 4 mg IVPB Q4H PRN PRN Reason: NAUSEA AND/OR VOMITING Pantoprazole Sodium (Protonix -) 40 mg PO DAILY [facility] Last Admin: 04/18/19 09:24 Dose: 40 mg Potassium Chloride (Potassium Chloride Oral Liquid) 40 meq PO DAILY [facility] Last Admin: 04/18/19 11:29 Dose: Not Given - Objective Vital Signs: Vital Signs Temperature 98.4 F 04/18/19 14:15 Pulse Rate 65 04/18/19 14:15 Respiratory Rate 22 H 04/18/19 14:15 Blood Pressure 127/60 04/18/19 14:15 O2 Sat by Pulse Oximetry (%) 100 04/18/19 09:10 Constitutional: Yes: Calm Eyes: Yes: Conjunctiva Clear HENT: Yes: Atraumatic Neck: Yes: Supple Cardiovascular: Yes: S1, S2 Respiratory: Yes: On Nasal O2 Gastrointestinal: Yes: Normal Bowel Sounds, Soft Musculoskeletal: Yes: Muscle Weakness Neurological: Yes: Confusion Labs: CBC, BMP 04/15/19 05:55 04/18/19 06:40 INR, PTT INR 1.69 (0.83-1.09) H 04/18/19 06:40 Problem List - Problems (1) LILLIE (acute kidney injury) Code(s): N17.9 - ACUTE KIDNEY FAILURE, UNSPECIFIED (2) Hypernatremia Code(s): E87.0 - HYPEROSMOLALITY AND HYPERNATREMIA Assessment/Plan Current Medications Generic Name Dose Route Start Last Admin Trade Name Freq PRN Reason Stop Dose Admin Albuterol Sulfate 1 amp 04/18/19 10:31 Ventolin 0.083% Nebulizer Soln - NEB Q6H PRN SHORT OF BREATH/WHEEZING Ampicillin Sodium 2 gm/ Sodium 100 mls @ 200 mls/hr 04/14/19 18:00 04/18/19 09:24 Chloride IVPB 200 mls/hr Q8H-IV [facility] Administration Protocol Potassium Chloride 10 meq/ 1,005 mls @ 60 mls/hr 04/17/19 17:00 04/18/19 15: 06 Amino Acids IVPB 60 mls/hr Q17H [facility] Administration Lactobacillus Acidophilus 1 tab 03/31/19 12:00 04/18/19 09:24 Bacid - PO 1 tab DAILY [facility] Administration Lorazepam 0.5 mg 04/15/19 18:17 Ativan Injection - IVPUSH Q6H PRN ANXIETY Metoprolol Succinate 25 mg 04/09/19 10:15 04/18/19 09:24 Toprol Xl - PO 25 mg BID [facility] Administration Mirtazapine 15 mg 03/28/19 22:00 04/17/19 21:30 Remeron - PO 15 mg HS [facility] Administration Ondansetron HCl 4 mg 04/08/19 15:37 Zofran Injection IVPB Q4H PRN NAUSEA AND/OR VOMITING Pantoprazole Sodium 40 mg 03/28/19 13:00 04/18/19 09:24 Protonix - PO 40 mg DAILY [facility] Administration Potassium Chloride 40 meq 04/18/19 10:30 04/18/19 11:29 Potassium Chloride Oral Liquid PO Not Given DAILY [facility] Impression 1. LILLIE 2. chf 3. mitral regurg 4. dementia 5. a-fib 6. hld 7. solitary right kidney 8. UTI 9. right side hydro 10. bacteremia 11. hypernatremia 12. hypokalemia 13. transaminitis Plan - replace potassium - cont clinimix - pt doing poorly - monitor lytes - lfts are improving - monitor renal function
--- NOTE | 2019-04-18 18:08 | PN ---
Progress Note, Physician - Current Medication List Current Medications: Active Medications Albuterol Sulfate (Ventolin 0.083% Nebulizer Soln -) 1 amp NEB Q6H PRN PRN Reason: SHORT OF BREATH/WHEEZING Ampicillin Sodium 2 gm/ Sodium (Chloride) 100 mls @ 200 mls/hr IVPB Q8H-IV [facility] ; Protocol Last Admin: 04/18/19 09:24 Dose: 200 mls/hr Potassium Chloride 20 meq/ (Amino Acids) 1,010 mls @ 60 mls/hr IVPB Q17H [facility] Lactobacillus Acidophilus (Bacid -) 1 tab PO DAILY [facility] Last Admin: 04/18/19 09:24 Dose: 1 tab Lorazepam (Ativan Injection -) 0.5 mg IVPUSH Q6H PRN PRN Reason: ANXIETY Metoprolol Succinate (Toprol Xl -) 25 mg PO BID [facility] Last Admin: 04/18/19 09:24 Dose: 25 mg Mirtazapine (Remeron -) 15 mg PO HS [facility] Last Admin: 04/17/19 21:30 Dose: 15 mg Ondansetron HCl (Zofran Injection) 4 mg IVPB Q4H PRN PRN Reason: NAUSEA AND/OR VOMITING Pantoprazole Sodium (Protonix -) 40 mg PO DAILY [facility] Last Admin: 04/18/19 09:24 Dose: 40 mg Potassium Chloride (Potassium Chloride Oral Liquid) 40 meq PO DAILY [facility] Last Admin: 04/18/19 11:29 Dose: Not Given - Objective Vital Signs: Vital Signs Temperature 98.4 F 04/18/19 14:15 Pulse Rate 65 04/18/19 14:15 Respiratory Rate 22 H 04/18/19 14:15 Blood Pressure 127/60 04/18/19 14:15 O2 Sat by Pulse Oximetry (%) 100 04/18/19 09:10 Constitutional: Yes: No Distress HENT: Yes: Atraumatic Neck: Yes: Supple Cardiovascular: Yes: Regular Rate and Rhythm Respiratory: Yes: CTA Bilaterally Gastrointestinal: Yes: Normal Bowel Sounds Extremities: Yes: WNL Edema: No Peripheral Pulses WNL: Yes Neurological: Yes: Alert, Oriented Labs: CBC, BMP 04/15/19 05:55 04/18/19 06:40 INR, PTT INR 1.69 (0.83-1.09) H 04/18/19 06:40 Problem List - Problems (1) LILLIE (acute kidney injury) Assessment/Plan: cr improving hyration Code(s): N17.9 - ACUTE KIDNEY FAILURE, UNSPECIFIED (2) Elevated troponin Code(s): R74.8 - ABNORMAL LEVELS OF OTHER SERUM ENZYMES (3) CHF (congestive heart failure) Code(s): I50.9 - HEART FAILURE, UNSPECIFIED (4) Dementia Code(s): F03.90 - UNSPECIFIED DEMENTIA WITHOUT BEHAVIORAL DISTURBANCE (5) GERD (gastroesophageal reflux disease) Assessment/Plan: on protonix Code(s): K21.9 - GASTRO-ESOPHAGEAL REFLUX DISEASE WITHOUT ESOPHAGITIS (6) Atrial fibrillation Assessment/Plan: on meds Code(s): I48.91 - UNSPECIFIED ATRIAL FIBRILLATION Qualifiers: Atrial fibrillation type: paroxysmal Qualified Code(s): I48.0 - Paroxysmal atrial fibrillation (7) HTN (hypertension) Assessment/Plan: on meds monitor Code(s): I10 - ESSENTIAL (PRIMARY) HYPERTENSION (8) Positive blood culture Assessment/Plan: on abx id consult Code(s): R78.81 - BACTEREMIA (9) Poor appetite Assessment/Plan: on ensure Code(s): R63.0 - ANOREXIA (10) Hypokalemia Assessment/Plan: on supplement Code(s): E87.6 - HYPOKALEMIA (11) Dehydration Code(s): E86.0 - DEHYDRATION (12) Failure to thrive Code(s): [id number] - (13) Pacemaker Code(s): Z95.0 - PRESENCE OF CARDIAC PACEMAKER (14) Feeding difficulty in elderly Code(s): R63.3 - FEEDING DIFFICULTIES (15) Abnormal liver function test Code(s): R94.5 - ABNORMAL RESULTS OF LIVER FUNCTION STUDIES
[2019-04-18] MEDS: POTASSIUM CHLORIDE 20 MEQ in AMINO ACIDS 4.25%/D5W 1,000 ML IVPB SCH (21:41)
[2019-04-18] MEDS: MIRTAZAPINE 15 MG TABLET (FP) PO SCH (21:42)
[2019-04-19] MEDS ORDERED: AMPICILLIN SODIUM 2 GM VIAL ONE ×3 (00:37→17:10)
[2019-04-19] MEDS ORDERED: SODIUM CHLORIDE 100 ML IVPB ONE ×3 (00:38→17:10)
[2019-04-19] MEDS: AMPICILLIN - 2 GM in SODIUM CHLORIDE 100 ML IVPB SCH ×3 (01:53→17:41)
[2019-04-19] MEDS: POTASSIUM CHLORIDE ORAL LIQUID 20 MEQ/15 ML PO SCH (09:47)
[2019-04-19] MEDS: PANTOPRAZOLE 40 MG TABLET (FP) PO SCH (09:48)
[2019-04-19] MEDS: POTASSIUM CHLORIDE 20 MEQ in AMINO ACIDS 4.25%/D5W 1,000 ML IVPB SCH (09:48)
[2019-04-19] MEDS: LACTOBACILLUS ACIDOPHILUS 1 TABLET PO SCH (09:48)
[2019-04-19] MEDS: metoPROLOL SUCCINATE 25 MG TAB.SR.24H (FP) PO SCH ×2 (09:48→21:23)
--- NOTE | 2019-04-19 13:13 | PN ---
Progress Note, Physician History of Present Illness: Pt seen and examined at bedside. She appears fatigued. She is short of breath. - Current Medication List Current Medications: Active Medications Albuterol Sulfate (Ventolin 0.083% Nebulizer Soln -) 1 amp NEB Q6H PRN PRN Reason: SHORT OF BREATH/WHEEZING Ampicillin Sodium 2 gm/ Sodium (Chloride) 100 mls @ 200 mls/hr IVPB Q8H-IV [facility] ; Protocol Last Admin: 04/19/19 09:47 Dose: 200 mls/hr Potassium Chloride 20 meq/ (Amino Acids) 1,010 mls @ 60 mls/hr IVPB Q17H [facility] Last Admin: 04/19/19 09:48 Dose: 60 mls/hr Lactobacillus Acidophilus (Bacid -) 1 tab PO DAILY [facility] Last Admin: 04/19/19 09:48 Dose: 1 tab Metoprolol Succinate (Toprol Xl -) 25 mg PO BID [facility] Last Admin: 04/19/19 09:48 Dose: 25 mg Mirtazapine (Remeron -) 15 mg PO HS [facility] Last Admin: 04/18/19 21:42 Dose: 15 mg Ondansetron HCl (Zofran Injection) 4 mg IVPB Q4H PRN PRN Reason: NAUSEA AND/OR VOMITING Pantoprazole Sodium (Protonix -) 40 mg PO DAILY [facility] Last Admin: 04/19/19 09:48 Dose: 40 mg Potassium Chloride (Potassium Chloride Oral Liquid) 40 meq PO DAILY [facility] Last Admin: 04/19/19 09:47 Dose: 40 meq - Objective Vital Signs: Vital Signs Temperature 97.7 F 04/19/19 02:32 Pulse Rate 68 04/19/19 02:32 Respiratory Rate 20 04/19/19 02:32 Blood Pressure 110/66 04/19/19 02:32 O2 Sat by Pulse Oximetry (%) 100 04/18/19 21:00 Constitutional: Yes: Calm Eyes: Yes: Conjunctiva Clear HENT: Yes: Atraumatic Neck: Yes: Supple Cardiovascular: Yes: S1, S2 Respiratory: Yes: CTA Bilaterally Gastrointestinal: Yes: Normal Bowel Sounds, Soft Genitourinary: Yes: Incontinence Musculoskeletal: Yes: Muscle Weakness Edema: No Neurological: Yes: Confusion Labs: CBC, BMP 04/15/19 05:55 04/18/19 06:40 INR, PTT INR 1.69 (0.83-1.09) H 04/18/19 06:40 Problem List - Problems (1) LILLIE (acute kidney injury) Code(s): N17.9 - ACUTE KIDNEY FAILURE, UNSPECIFIED (2) Hypernatremia Code(s): E87.0 - HYPEROSMOLALITY AND HYPERNATREMIA Assessment/Plan Current Medications Generic Name Dose Route Start Last Admin Trade Name Freq PRN Reason Stop Dose Admin Albuterol Sulfate 1 amp 04/18/19 10:31 Ventolin 0.083% Nebulizer Soln - NEB Q6H PRN SHORT OF BREATH/WHEEZING Ampicillin Sodium 2 gm/ Sodium 100 mls @ 200 mls/hr 04/14/19 18:00 04/19/19 09:47 Chloride IVPB 200 mls/hr Q8H-IV [facility] Administration Protocol Potassium Chloride 20 meq/ 1,010 mls @ 60 mls/hr 04/18/19 17:00 04/19/19 09: 48 Amino Acids IVPB 60 mls/hr Q17H [facility] Administration Lactobacillus Acidophilus 1 tab 03/31/19 12:00 04/19/19 09:48 Bacid - PO 1 tab DAILY [facility] Administration Metoprolol Succinate 25 mg 04/09/19 10:15 04/19/19 09:48 Toprol Xl - PO 25 mg BID [facility] Administration Mirtazapine 15 mg 03/28/19 22:00 04/18/19 21:42 Remeron - PO 15 mg HS [facility] Administration Ondansetron HCl 4 mg 04/08/19 15:37 Zofran Injection IVPB Q4H PRN NAUSEA AND/OR VOMITING Pantoprazole Sodium 40 mg 03/28/19 13:00 04/19/19 09:48 Protonix - PO 40 mg DAILY [facility] Administration Potassium Chloride 40 meq 04/18/19 10:30 04/19/19 09:47 Potassium Chloride Oral Liquid PO 40 meq DAILY [facility] Administration Impression 1. LILLIE 2. chf 3. mitral regurg 4. dementia 5. a-fib 6. hld 7. solitary right kidney 8. UTI 9. right side hydro 10. bacteremia 11. hypernatremia 12. hypokalemia 13. transaminitis Plan - cont current management - check labs if possible, phlebotomy unable to draw bloods - discussed care with daughter at length - family are discussing GOC - pt doing poorly - monitor lytes - monitor renal function
--- NOTE | 2019-04-19 15:12 | PN ---
Progress Note (short form) - Note Progress Note: s: no cp sob palps dizzy TELE: SR, brief atrial run - Current Medication List Current Medications Generic Name Dose Route Start Last Admin Trade Name Freq PRN Reason Stop Dose Admin Albuterol Sulfate 1 amp 04/18/19 10:31 Ventolin 0.083% Nebulizer Soln - NEB Q6H PRN SHORT OF BREATH/WHEEZING Ampicillin Sodium 2 gm/ Sodium 100 mls @ 200 mls/hr 04/14/19 18:00 04/19/19 09:47 Chloride IVPB 200 mls/hr Q8H-IV [facility] Administration Protocol Potassium Chloride 20 meq/ 1,010 mls @ 60 mls/hr 04/18/19 17:00 04/19/19 09: 48 Amino Acids IVPB 60 mls/hr Q17H [facility] Administration Lactobacillus Acidophilus 1 tab 03/31/19 12:00 04/19/19 09:48 Bacid - PO 1 tab DAILY [facility] Administration Metoprolol Succinate 25 mg 04/09/19 10:15 04/19/19 09:48 Toprol Xl - PO 25 mg BID [facility] Administration Mirtazapine 15 mg 03/28/19 22:00 04/18/19 21:42 Remeron - PO 15 mg HS [facility] Administration Ondansetron HCl 4 mg 04/08/19 15:37 Zofran Injection IVPB Q4H PRN NAUSEA AND/OR VOMITING Pantoprazole Sodium 40 mg 03/28/19 13:00 04/19/19 09:48 Protonix - PO 40 mg DAILY [facility] Administration Potassium Chloride 40 meq 04/18/19 10:30 04/19/19 09:47 Potassium Chloride Oral Liquid PO 40 meq DAILY [facility] Administration - Objective Vital Signs: Vital Signs Period Temp Pulse Resp BP Sys/Rice Pulse Ox Last 24 Hr 97.3 F-98.0 F 63-68 19-22 110-126/57-74 100-100 Constitutional: Yes: No Distress Cardiovascular: Yes: Regular Rate and Rhythm Respiratory: Yes: CTA Bilaterally (no rales) Gastrointestinal: Yes: Soft (NT) Edema: no Neurological: Yes: Confusion no jaundice diaphoresis Labs: CBC, BMP 04/15/19 05:55 04/18/19 06:40 - ....Imaging EKG: Image Reviewed Assessment/Plan IMP: Severe chronic MR with chronic valvular CHF PAF s/p PPM Bacteremia, possible IE on detention IV abx CKD with acute renal failure Worsening transaminitis and coagulopathy, liver failure of unclear etiology likely multifactorial REC: 1. Case was discussed with her primary shot coat tender Dr. Bagley, renal and GI team here 04/14, with CXR clear and CT abdomen only minimal pleural effusions. -Lasix was resumed with the thinking that worsened renal function and liver fx could be reflective of poor cardiac output (passive hepatic congestion and cardiorenal syndrome). -significant weight gain vs prior discharge wt. -lasix held by renal over weekend, 1/ NS with bicarb started for hypernatremia -no labs from today -CXR largely unchanged 2. Off AC now due to acute liver failure and coagulopathy. 3. severe transaminitis: -w/u by GI unrevealing, statin held -? congestive-as above 4. dispo/goals of care: Dr arteaga had long d/w daughter 04/15 re patients poor prognosis and limited medical treatment options: -explained that without surgical correction of severe MR (she has been deemed not a candidate for due to cognitive decline and poor functional status by her primary shot coat tender who has followed her closely and with whom patient has a long standing relationship), mortality is high and life expectancy is likely < 6 months; -discussed that Ms. Phan's quality of life has been extremely poor over the last 3 months due to recurrent CHF, hypoxia, intermittent organ failure and she has spent the majority of her days in hospital. Isa agreed with this. -recommended that goals of care be defined, including code status and recommended that a DNR/DNI would be appropriate. Isa agreed and stated that he mother had a DNR order in effect 25 years ago but that she was now conflicted about instituting it during these hospitalizations because her mother has expressed "a will to live" during "more lucid moments". Isa stated she would discuss the advanced directive with her parents again and give us direction. -spoke with isa today as well, still unsure of goals of care. Pt will likely benefit from hospice.
--- NOTE | 2019-04-19 15:47 | PN ---
Progress Note, Physician - Current Medication List Current Medications: Active Medications Albuterol Sulfate (Ventolin 0.083% Nebulizer Soln -) 1 amp NEB Q6H PRN PRN Reason: SHORT OF BREATH/WHEEZING Ampicillin Sodium 2 gm/ Sodium (Chloride) 100 mls @ 200 mls/hr IVPB Q8H-IV [facility] ; Protocol Last Admin: 04/19/19 09:47 Dose: 200 mls/hr Potassium Chloride 20 meq/ (Amino Acids) 1,010 mls @ 60 mls/hr IVPB Q17H [facility] Last Admin: 04/19/19 09:48 Dose: 60 mls/hr Lactobacillus Acidophilus (Bacid -) 1 tab PO DAILY [facility] Last Admin: 04/19/19 09:48 Dose: 1 tab Metoprolol Succinate (Toprol Xl -) 25 mg PO BID [facility] Last Admin: 04/19/19 09:48 Dose: 25 mg Mirtazapine (Remeron -) 15 mg PO HS [facility] Last Admin: 04/18/19 21:42 Dose: 15 mg Ondansetron HCl (Zofran Injection) 4 mg IVPB Q4H PRN PRN Reason: NAUSEA AND/OR VOMITING Pantoprazole Sodium (Protonix -) 40 mg PO DAILY [facility] Last Admin: 04/19/19 09:48 Dose: 40 mg Potassium Chloride (Potassium Chloride Oral Liquid) 40 meq PO DAILY [facility] Last Admin: 04/19/19 09:47 Dose: 40 meq - Objective Vital Signs: Vital Signs Temperature 97.4 F L 04/19/19 14:45 Pulse Rate 68 04/19/19 14:45 Respiratory Rate 22 H 04/19/19 14:45 Blood Pressure 126/67 04/19/19 14:45 O2 Sat by Pulse Oximetry (%) 100 04/19/19 10:00 Constitutional: Yes: No Distress HENT: Yes: Atraumatic Neck: Yes: Supple Cardiovascular: Yes: Regular Rate and Rhythm Respiratory: Yes: CTA Bilaterally Gastrointestinal: Yes: Normal Bowel Sounds Extremities: Yes: WNL Neurological: Yes: Alert, Oriented Labs: CBC, BMP 04/15/19 05:55 04/18/19 06:40 INR, PTT INR 1.69 (0.83-1.09) H 04/18/19 06:40 Problem List - Problems (1) LILLIE (acute kidney injury) Assessment/Plan: cr improving hyration Code(s): N17.9 - ACUTE KIDNEY FAILURE, UNSPECIFIED (2) Elevated troponin Assessment/Plan: stable Code(s): R74.8 - ABNORMAL LEVELS OF OTHER SERUM ENZYMES (3) CHF (congestive heart failure) Assessment/Plan: stable Code(s): I50.9 - HEART FAILURE, UNSPECIFIED (4) Dementia Code(s): F03.90 - UNSPECIFIED DEMENTIA WITHOUT BEHAVIORAL DISTURBANCE (5) GERD (gastroesophageal reflux disease) Assessment/Plan: on protonix Code(s): K21.9 - GASTRO-ESOPHAGEAL REFLUX DISEASE WITHOUT ESOPHAGITIS (6) Atrial fibrillation Assessment/Plan: on meds Code(s): I48.91 - UNSPECIFIED ATRIAL FIBRILLATION Qualifiers: Atrial fibrillation type: paroxysmal Qualified Code(s): I48.0 - Paroxysmal atrial fibrillation (7) HTN (hypertension) Assessment/Plan: on meds monitor Code(s): I10 - ESSENTIAL (PRIMARY) HYPERTENSION (8) Positive blood culture Code(s): R78.81 - BACTEREMIA (9) Poor appetite Code(s): R63.0 - ANOREXIA (10) Hypokalemia Code(s): E87.6 - HYPOKALEMIA (11) Dehydration Code(s): E86.0 - DEHYDRATION (12) Failure to thrive Code(s): [id number] - (13) Pacemaker Code(s): Z95.0 - PRESENCE OF CARDIAC PACEMAKER (14) Feeding difficulty in elderly Code(s): R63.3 - FEEDING DIFFICULTIES (15) Abnormal liver function test Code(s): R94.5 - ABNORMAL RESULTS OF LIVER FUNCTION STUDIES Assessment/Plan continue current management
[2019-04-19] MEDS: MIRTAZAPINE 15 MG TABLET (FP) PO SCH (21:23)
[2019-04-20] MEDS ORDERED: SODIUM CHLORIDE 100 ML IVPB ONE ×2 (00:56→09:23)
[2019-04-20] MEDS ORDERED: AMPICILLIN SODIUM 2 GM VIAL ONE ×2 (00:56→09:23)
[2019-04-20] MEDS: AMPICILLIN - 2 GM in SODIUM CHLORIDE 100 ML IVPB SCH ×2 (01:22→09:33)
[2019-04-20] MEDS: POTASSIUM CHLORIDE 20 MEQ in AMINO ACIDS 4.25%/D5W 1,000 ML IVPB SCH (04:38)
[2019-04-20] MEDS ORDERED: PT OWN MED DRAWER 7, Y5N ONE (09:23)
[2019-04-20] MEDS: metoPROLOL SUCCINATE 25 MG TAB.SR.24H (FP) PO SCH ×2 (09:33→22:14)
[2019-04-20] MEDS: LACTOBACILLUS ACIDOPHILUS 1 TABLET PO SCH (09:33)
[2019-04-20] MEDS: POTASSIUM CHLORIDE ORAL LIQUID 20 MEQ/15 ML PO SCH (09:34)
[2019-04-20] MEDS: PANTOPRAZOLE 40 MG TABLET (FP) PO SCH (09:34)
[2019-04-20 10:16] LABS: ALBUMIN 2.1 g/dl (3.4-5.0); BILIRUBIN,TOTAL 2.4 mg/dL (0.2-1); CALCIUM 8.1 mg/dL (8.5-10.1); CREATININE 2.8 mg/dL (0.55-1.3); TOT PROT 6.7 g/dl (6.4-8.2)
[2019-04-20 10:34] LABS: BLOOD UREA NITROGEN 134.8 mg/dL (7-18)
--- NOTE | 2019-04-20 10:52 | PN ---
Progress Note, Physician History of Present Illness: comfortable - Current Medication List Current Medications: Active Medications Albuterol Sulfate (Ventolin 0.083% Nebulizer Soln -) 1 amp NEB Q6H PRN PRN Reason: SHORT OF BREATH/WHEEZING Ampicillin Sodium 2 gm/ Sodium (Chloride) 100 mls @ 200 mls/hr IVPB Q8H-IV [facility] ; Protocol Last Admin: 04/20/19 09:33 Dose: 200 mls/hr Potassium Chloride 20 meq/ (Amino Acids) 1,010 mls @ 60 mls/hr IVPB Q17H [facility] Last Admin: 04/20/19 04:38 Dose: Not Given Lactobacillus Acidophilus (Bacid -) 1 tab PO DAILY [facility] Last Admin: 04/20/19 09:33 Dose: 1 tab Metoprolol Succinate (Toprol Xl -) 25 mg PO BID [facility] Last Admin: 04/20/19 09:33 Dose: 25 mg Mirtazapine (Remeron -) 15 mg PO HS [facility] Last Admin: 04/19/19 21:23 Dose: 15 mg Ondansetron HCl (Zofran Injection) 4 mg IVPB Q4H PRN PRN Reason: NAUSEA AND/OR VOMITING Pantoprazole Sodium (Protonix -) 40 mg PO DAILY [facility] Last Admin: 04/20/19 09:34 Dose: 40 mg Potassium Chloride (Potassium Chloride Oral Liquid) 40 meq PO DAILY [facility] Last Admin: 04/20/19 09:34 Dose: 40 meq - Objective Vital Signs: Vital Signs Temperature 97.8 F 04/20/19 10:00 Pulse Rate 66 04/20/19 10:00 Respiratory Rate 22 H 04/20/19 10:00 Blood Pressure 118/58 L 04/20/19 10:00 O2 Sat by Pulse Oximetry (%) 100 04/19/19 21:00 Constitutional: Yes: Calm HENT: Yes: Atraumatic Neck: Yes: Supple Cardiovascular: Yes: Regular Rate and Rhythm Respiratory: Yes: CTA Bilaterally Gastrointestinal: Yes: Normal Bowel Sounds Extremities: Yes: WNL Neurological: Yes: Alert, Oriented Labs: CBC, BMP 04/20/19 08:50 INR, PTT INR 1.69 (0.83-1.09) H 04/18/19 06:40 Problem List - Problems (1) LILLIE (acute kidney injury) Assessment/Plan: cr improving hyration Code(s): N17.9 - ACUTE KIDNEY FAILURE, UNSPECIFIED (2) Elevated troponin Assessment/Plan: stable Code(s): R74.8 - ABNORMAL LEVELS OF OTHER SERUM ENZYMES (3) CHF (congestive heart failure) Assessment/Plan: off of diuretics stable Code(s): I50.9 - HEART FAILURE, UNSPECIFIED (4) Dementia Code(s): F03.90 - UNSPECIFIED DEMENTIA WITHOUT BEHAVIORAL DISTURBANCE (5) GERD (gastroesophageal reflux disease) Assessment/Plan: on protonix Code(s): K21.9 - GASTRO-ESOPHAGEAL REFLUX DISEASE WITHOUT ESOPHAGITIS (6) Atrial fibrillation Assessment/Plan: on meds Code(s): I48.91 - UNSPECIFIED ATRIAL FIBRILLATION Qualifiers: Atrial fibrillation type: paroxysmal Qualified Code(s): I48.0 - Paroxysmal atrial fibrillation (7) HTN (hypertension) Assessment/Plan: on meds monitor Code(s): I10 - ESSENTIAL (PRIMARY) HYPERTENSION (8) Positive blood culture Code(s): R78.81 - BACTEREMIA (9) Poor appetite Code(s): R63.0 - ANOREXIA (10) Hypokalemia Code(s): E87.6 - HYPOKALEMIA (11) Dehydration Code(s): E86.0 - DEHYDRATION (12) Failure to thrive Code(s): [id number] - (13) Pacemaker Code(s): Z95.0 - PRESENCE OF CARDIAC PACEMAKER (14) Feeding difficulty in elderly Code(s): R63.3 - FEEDING DIFFICULTIES (15) Abnormal liver function test Code(s): R94.5 - ABNORMAL RESULTS OF LIVER FUNCTION STUDIES Assessment/Plan family agreed for dnr
[2019-04-20 10:54] LABS: BASO % 0.3 % (0-2.0); HEMOGLOBIN 11.2 GM/dL (10.7-15.3); LYMPH % 7.4 % (8-40); MCH 29.8 pg (25.7-33.7); MCHC 30.3 g/dl (32.0-36.0); MEAN CELL VOLUME 98.1 fl (80-96); MEAN PLT VOLUME 11.8 fl (7.5-11.1); MONO % 6.8 % (3.8-10.2); NEUT % 85.5 % (42.8-82.8); PLATELET COUNT 155 K/MM3 (134-434); RBC 3.77 M/mm3 (3.60-5.2); RDW 22.3 % (11.6-15.6); WHITE BLOOD COUNT 19.6 K/mm3 (4.0-10.0)
[2019-04-20 11:29] LABS: ANISOCYTOSIS 2+; MACROCYTOSIS 1+; PLATELET ESTIMATE DECREASED
[2019-04-20] MEDS: ALBUTEROL SO4 0.083% IH SOL 2.5 MG/3 ML VIAL.NEB. NEB PRN (11:57)
[2019-04-20] MEDS ORDERED: LORazepam 2 MG/ML SDV VIAL IVPUSH ONE (12:00)
--- NOTE | 2019-04-20 12:29 | PN ---
Progress Note (short form) - Note Progress Note: s: no cp sob palps dizzy TELE: SR - Current Medication List Current Medications Generic Name Dose Route Start Last Admin Trade Name Freq PRN Reason Stop Dose Admin Albuterol Sulfate 1 amp 04/18/19 10:31 04/20/19 11:57 Ventolin 0.083% Nebulizer Soln - NEB 1 amp Q6H PRN Administration SHORT OF BREATH/WHEEZING Ampicillin Sodium 2 gm/ Sodium 100 mls @ 200 mls/hr 04/14/19 18:00 04/20/19 09:33 Chloride IVPB 200 mls/hr Q8H-IV PETTY Administration Protocol Potassium Chloride 20 meq/ 1,010 mls @ 60 mls/hr 04/18/19 17:00 04/20/19 04: 38 Amino Acids IVPB Not Given Q17H PETTY Lactobacillus Acidophilus 1 tab 03/31/19 12:00 04/20/19 09:33 Bacid - PO 1 tab DAILY PETTY Administration Metoprolol Succinate 25 mg 04/09/19 10:15 04/20/19 09:33 Toprol Xl - PO 25 mg BID PETTY Administration Mirtazapine 15 mg 03/28/19 22:00 04/19/19 21:23 Remeron - PO 15 mg HS PETTY Administration Ondansetron HCl 4 mg 04/08/19 15:37 Zofran Injection IVPB Q4H PRN NAUSEA AND/OR VOMITING Pantoprazole Sodium 40 mg 03/28/19 13:00 04/20/19 09:34 Protonix - PO 40 mg DAILY PETTY Administration Potassium Chloride 40 meq 04/18/19 10:30 04/20/19 09:34 Potassium Chloride Oral Liquid PO 40 meq DAILY PETTY Administration - Objective Vital Signs: Vital Signs Period Temp Pulse Resp BP Sys/Rice Pulse Ox Last 24 Hr 97.4 F-98.2 F 64-68 20-22 108-135/58-74 100 Constitutional: Yes: No Distress Cardiovascular: Yes: Regular Rate and Rhythm Respiratory: Yes: CTA Bilaterally (no rales) Gastrointestinal: Yes: Soft (NT) Edema: no Neurological: Yes: Confusion no jaundice diaphoresis Labs: CBC, BMP 04/20/19 10:35 04/20/19 08:50 - ....Imaging EKG: Image Reviewed Assessment/Plan IMP: Severe chronic MR with chronic valvular CHF PAF s/p PPM Bacteremia, possible IE on half-way IV abx CKD with acute renal failure Worsening transaminitis and coagulopathy, liver failure of unclear etiology likely multifactorial REC: 1. Case was discussed with her primary bag machine tender Dr. Bagley, renal and GI team here 04/14, with CXR clear and CT abdomen only minimal pleural effusions. -Lasix was resumed with the thinking that worsened renal function and liver fx could be reflective of poor cardiac output (passive hepatic congestion and cardiorenal syndrome). -significant weight gain vs prior discharge wt. -lasix held by renal over weekend, 1/2 NS with bicarb started for hypernatremia -CXR largely unchanged -given poor po intake, sam, hypernatremia, would hold diuretic for now 2. Off AC now due to acute liver failure and coagulopathy. 3. severe transaminitis: -w/u by GI unrevealing, statin held -? congestive-as above 4. dispo/goals of care: Dr arteaga had long d/w daughter 04/15 re patients poor prognosis and limited medical treatment options: -explained that without surgical correction of severe MR (she has been deemed not a candidate for due to cognitive decline and poor functional status by her primary bag machine tender who has followed her closely and with whom patient has a long standing relationship), mortality is high and life expectancy is likely < 6 months; -discussed that Ms. Phan's quality of life has been extremely poor over the last 3 months due to recurrent CHF, hypoxia, intermittent organ failure and she has spent the majority of her days in hospital. Candace agreed with this. -recommended that goals of care be defined, including code status and recommended that a DNR/DNI would be appropriate. Candace agreed and stated that he mother had a DNR order in effect 25 years ago but that she was now conflicted about instituting it during these hospitalizations because her mother has expressed "a will to live" during "more lucid moments". Candace stated she would discuss the advanced directive with her parents again and give us direction. -spoke with candace 04/20 as well, still unsure of goals of care. Pt will likely benefit from hospice.
[2019-04-20] MEDS ORDERED: SODIUM BICARBONATE 8.4% 50 MEQ/50 ML DISP.SYRIN IVPUSH ONE (16:33)
--- NOTE | 2019-04-20 16:36 | PN ---
Progress Note, Physician History of Present Illness: Pt seen and examined at bedside. She is more lethargic today. - Current Medication List Current Medications: Active Medications Albuterol Sulfate (Ventolin 0.083% Nebulizer Soln -) 1 amp NEB Q6H PRN PRN Reason: SHORT OF BREATH/WHEEZING Last Admin: 04/20/19 11:57 Dose: 1 amp Ampicillin Sodium 2 gm/ Sodium (Chloride) 100 mls @ 200 mls/hr IVPB Q8H-IV PETTY ; Protocol Last Admin: 04/20/19 09:33 Dose: 200 mls/hr Potassium Chloride 20 meq/ (Amino Acids) 1,010 mls @ 60 mls/hr IVPB Q17H [facility] Last Admin: 04/20/19 04:38 Dose: Not Given Lactobacillus Acidophilus (Bacid -) 1 tab PO DAILY [facility] Last Admin: 04/20/19 09:33 Dose: 1 tab Metoprolol Succinate (Toprol Xl -) 25 mg PO BID [facility] Last Admin: 04/20/19 09:33 Dose: 25 mg Mirtazapine (Remeron -) 15 mg PO HS [facility] Last Admin: 04/19/19 21:23 Dose: 15 mg Ondansetron HCl (Zofran Injection) 4 mg IVPB Q4H PRN PRN Reason: NAUSEA AND/OR VOMITING Pantoprazole Sodium (Protonix -) 40 mg PO DAILY [facility] Last Admin: 04/20/19 09:34 Dose: 40 mg Potassium Chloride (Potassium Chloride Oral Liquid) 40 meq PO DAILY [facility] Last Admin: 04/20/19 09:34 Dose: 40 meq Sodium Bicarbonate (Sodium Bicarbonate 8.4% -) 50 meq IVPUSH ONCE ONE Stop: 04/20/19 16:34 - Objective Vital Signs: Vital Signs Temperature 98 F 04/20/19 14:00 Pulse Rate 62 04/20/19 14:00 Respiratory Rate 22 H 04/20/19 14:00 Blood Pressure 120/66 04/20/19 14:00 O2 Sat by Pulse Oximetry (%) 100 04/20/19 09:00 Constitutional: Yes: Mild Distress Eyes: Yes: Conjunctiva Clear Cardiovascular: Yes: S1, S2 Respiratory: Yes: On Nasal O2 Gastrointestinal: Yes: Soft Genitourinary: Yes: Incontinence Musculoskeletal: Yes: Muscle Weakness Edema: No Integumentary: Yes: WNL Neurological: Yes: Lethargy Labs: CBC, BMP 04/20/19 10:35 04/20/19 08:50 INR, PTT INR 1.69 (0.83-1.09) H 04/18/19 06:40 Problem List - Problems (1) LILLIE (acute kidney injury) Code(s): N17.9 - ACUTE KIDNEY FAILURE, UNSPECIFIED (2) Hypernatremia Code(s): E87.0 - HYPEROSMOLALITY AND HYPERNATREMIA Assessment/Plan Current Medications Generic Name Dose Route Start Last Admin Trade Name Freq PRN Reason Stop Dose Admin Albuterol Sulfate 1 amp 04/18/19 10:31 04/20/19 11:57 Ventolin 0.083% Nebulizer Soln - NEB 1 amp Q6H PRN Administration SHORT OF BREATH/WHEEZING Ampicillin Sodium 2 gm/ Sodium 100 mls @ 200 mls/hr 04/14/19 18:00 04/20/19 09:33 Chloride IVPB 200 mls/hr Q8H-IV PETTY Administration Protocol Potassium Chloride 20 meq/ 1,010 mls @ 60 mls/hr 04/18/19 17:00 04/20/19 04: 38 Amino Acids IVPB Not Given Q17H PETTY Lactobacillus Acidophilus 1 tab 03/31/19 12:00 04/20/19 09:33 Bacid - PO 1 tab DAILY PETTY Administration Metoprolol Succinate 25 mg 04/09/19 10:15 04/20/19 09:33 Toprol Xl - PO 25 mg BID PETTY Administration Mirtazapine 15 mg 03/28/19 22:00 04/19/19 21:23 Remeron - PO 15 mg HS PETTY Administration Ondansetron HCl 4 mg 04/08/19 15:37 Zofran Injection IVPB Q4H PRN NAUSEA AND/OR VOMITING Pantoprazole Sodium 40 mg 03/28/19 13:00 04/20/19 09:34 Protonix - PO 40 mg DAILY PETTY Administration Potassium Chloride 40 meq 04/18/19 10:30 04/20/19 09:34 Potassium Chloride Oral Liquid PO 40 meq DAILY PETTY Administration Sodium Bicarbonate 50 meq 04/20/19 16:33 Sodium Bicarbonate 8.4% - IVPUSH 04/20/19 16:34 ONCE ONE Impression 1. LILLIE 2. chf 3. mitral regurg 4. dementia 5. a-fib 6. hld 7. solitary right kidney 8. UTI 9. right side hydro 10. bacteremia 11. hypernatremia 12. hypokalemia 13. transaminitis Plan - renal function worsening - cont clinimix for now - will give bicarb - replace potassium - discussed with cardio - pt is doing poorly
--- NOTE | 2019-04-20 17:06 | PN ---
Progress Note (short form) - Note Progress Note: agitated and congested doing poorly Vital Signs Period Temp Pulse Resp BP Sys/Rice Pulse Ox Last 24 Hr 97.4 F-98.2 F 62-68 20-22 108-120/58-74 100-100 cor-rrr lungs bilateral rhonchi abd soft,nt ext cool, no edema CBC, BMP 04/20/19 10:35 04/20/19 08:50 Microbiology 03/28/19 17:00 Blood - Peripheral Venous Blood Culture - Final NO GROWTH AFTER 5 DAYS INCUBATION 03/28/19 17:00 Blood - Peripheral Venous Blood Culture - Final NO GROWTH AFTER 5 DAYS INCUBATION 03/27/19 15:55 Blood - Peripheral Venous Blood Culture - Final Enterococcus Faecalis 03/27/19 15:55 Blood - Peripheral Venous Blood Culture - Final Enterococcus Faecalis 03/27/19 16:34 Urine - Urine Clean Catch Urine Culture - Final Contaminated: Please Repeat echo+valvular disease, no obvious vegetations noted a/p leukocytosis- no diarrhea reported by nursing staff enterococcal bacteremia-cannot r/o endocarditis with valvular heart disease and PPM-day #24 ampicillin valvular heart disease PPM lillie/ckd- worsening abnl lfts- persistent overall worsening per conversation with her daughter yesterday they are still discussing further options family has agreed to dnr/dni she has been declining she is not eating will expand antibiotics to cover for pneumonia given rising wbc and chest congestion and obtain cxray overall prognosis is grim Problem List - Problems (1) Positive blood culture Code(s): R78.81 - BACTEREMIA (2) LILLIE (acute kidney injury) Code(s): N17.9 - ACUTE KIDNEY FAILURE, UNSPECIFIED (3) Mitral valve regurgitation Code(s): I34.0 - NONRHEUMATIC MITRAL (VALVE) INSUFFICIENCY (4) Pacemaker Code(s): Z95.0 - PRESENCE OF CARDIAC PACEMAKER
[2019-04-20] MEDS ORDERED: LORazepam 0.5 MG TABLET PO PRN (17:59)
[2019-04-20] MEDS ORDERED: VANCOMYCIN 1 GM in D5W (PRE-DOCKED) 1,000 MG/250 ML IVPB ONE (18:00)
[2019-04-20] MEDS ORDERED: DEXTROSE 5%-WATER - 50 ML IVPB ONE (18:10)
[2019-04-20] MEDS ORDERED: PIPERACILLIN/TAZOBACTAM 2.25 GM VIAL IVPB ONE (18:10)
[2019-04-20] MEDS: PIPERACILLIN/TAZOB 2.25 GM 2.25 GM in DEXTROSE 5%-WATER - 50 ML IVPB SCH (18:22)
[2019-04-20] MEDS: MIRTAZAPINE 15 MG TABLET (FP) PO SCH (22:14)
[2019-04-21] MEDS ORDERED: DEXTROSE 5%-WATER - 50 ML IVPB ONE ×2 (01:44→11:22)
[2019-04-21] MEDS ORDERED: PIPERACILLIN/TAZOBACTAM 2.25 GM VIAL IVPB ONE ×4 (01:44→17:22)
[2019-04-21] MEDS: PIPERACILLIN/TAZOB 2.25 GM 2.25 GM in DEXTROSE 5%-WATER - 50 ML IVPB SCH ×3 (01:50→17:52)
[2019-04-21 08:15] LABS: BILIRUBIN,TOTAL 2.9 mg/dL (0.2-1); CALCIUM 8.1 mg/dL (8.5-10.1); CREATININE 3.1 mg/dL (0.55-1.3); POTASSIUM 4.3 mmol/L (3.5-5.1); TOT PROT 6.5 g/dl (6.4-8.2)
[2019-04-21 08:51] LABS: BLOOD UREA NITROGEN 158.6 mg/dL (7-18)
--- NOTE | 2019-04-21 09:21 | PN ---
Progress Note (short form) - Note Progress Note: agitated and congested doing poorly unable to draw blood cultures last night on clinimix Vital Signs Period Temp Pulse Resp BP Sys/Rice Pulse Ox Last 24 Hr 97.6 F-98.4 F 61-78 20-22 100-121/58-71 100 cor-rrr lungs bilateral rhonchi abd soft,nt ext +edema CBC, BMP 04/20/19 10:35 04/21/19 05:15 Laboratory Tests 03/28/19 03/29/19 04/12/19 17:00 06:08 06:07 Total Bilirubin AST 146 H ALT 125 H Alkaline Phosphatase 322 H Random Vancomycin 16.0 L 12.9 L 04/21/19 05:15 Total Bilirubin 2.9 H AST 190 H ALT 490 H Alkaline Phosphatase 903 H Random Vancomycin cxray increased markings echo+valvular disease, no obvious vegetations noted a/p leukocytosis- no diarrhea reported by nursing staff-received vancomycin last night, on zosyn for possible aspiration f/u cbc in am enterococcal bacteremia-cannot r/o endocarditis with valvular heart disease and PPM-day #25 antibiotics valvular heart disease PPM lillie/ckd- worsening abnl lfts- persistent overall worsening family has agreed to dnr/dni she has been declining she is not eating overall prognosis is grim Problem List - Problems (1) Positive blood culture Code(s): R78.81 - BACTEREMIA (2) LILLIE (acute kidney injury) Code(s): N17.9 - ACUTE KIDNEY FAILURE, UNSPECIFIED (3) Mitral valve regurgitation Code(s): I34.0 - NONRHEUMATIC MITRAL (VALVE) INSUFFICIENCY (4) Pacemaker Code(s): Z95.0 - PRESENCE OF CARDIAC PACEMAKER
--- NOTE | 2019-04-21 10:26 | PN ---
Progress Note, Physician Chief Complaint: tachypnea History of Present Illness: tele: SR - Current Medication List Current Medications: Active Medications Albuterol Sulfate (Ventolin 0.083% Nebulizer Soln -) 1 amp NEB Q6H PRN PRN Reason: SHORT OF BREATH/WHEEZING Last Admin: 04/20/19 11:57 Dose: 1 amp Potassium Chloride 20 meq/ (Amino Acids) 1,010 mls @ 60 mls/hr IVPB Q17H [facility]TY Last Admin: 04/20/19 04:38 Dose: Not Given Piperacillin Sod/Tazobactam (Sod 2.25 gm/ Dextrose) 50 mls @ 100 mls/hr IVPB Q8H-IV PETTY; Protocol Last Admin: 04/21/19 01:50 Dose: 100 mls/hr Lactobacillus Acidophilus (Bacid -) 1 tab PO DAILY [facility] Last Admin: 04/20/19 09:33 Dose: 1 tab Lorazepam (Ativan -) 0.5 mg PO Q24H PRN PRN Reason: ANXIETY Metoprolol Succinate (Toprol Xl -) 25 mg PO BID [facility] Last Admin: 04/20/19 22:14 Dose: Not Given Mirtazapine (Remeron -) 15 mg PO HS [facility] Last Admin: 04/20/19 22:14 Dose: Not Given Ondansetron HCl (Zofran Injection) 4 mg IVPB Q4H PRN PRN Reason: NAUSEA AND/OR VOMITING Pantoprazole Sodium (Protonix -) 40 mg PO DAILY [facility] Last Admin: 04/20/19 09:34 Dose: 40 mg Potassium Chloride (Potassium Chloride Oral Liquid) 40 meq PO DAILY [facility] Last Admin: 04/20/19 09:34 Dose: 40 meq - Objective Vital Signs: Vital Signs Temperature 97.6 F 04/21/19 06:06 Pulse Rate 61 04/21/19 06:06 Respiratory Rate 20 04/21/19 06:06 Blood Pressure 100/58 L 04/21/19 06:06 O2 Sat by Pulse Oximetry (%) 100 04/20/19 21:00 Constitutional: Yes: No Distress Cardiovascular: Yes: Regular Rate and Rhythm Respiratory: Yes: Other (decreased breath sounds bases) Gastrointestinal: Yes: Soft Edema: No Neurological: Yes: Confusion Labs: CBC, BMP 04/20/19 10:35 04/21/19 05:15 INR, PTT INR 1.69 (0.83-1.09) H 04/18/19 06:40 Assessment/Plan IMP: Severe chronic MR with chronic valvular CHF PAF s/p PPM Bacteremia, possible IE on assisted IV abx CKD with acute renal failure Worsening transaminitis and coagulopathy, liver failure of unclear etiology likely multifactorial REC: 1. Case was discussed with her primary service superintendent Dr. Bagley, renal and GI team here 04/14, with CXR clear and CT abdomen only minimal pleural effusions. -Lasix was resumed with the thinking that worsened renal function and liver fx could be reflective of poor cardiac output (passive hepatic congestion and cardiorenal syndrome). -significant weight gain vs prior discharge wt. -lasix held by renal due to hypernatremia -given poor po intake, sam, hypernatremia, would hold diuretic for now 2. Off AC now due to acute liver failure and coagulopathy. 3. severe transaminitis:improving -w/u by GI unrevealing, statin held -? congestive-as above 4. dispo/goals of care: Now DNR/DNI, september d/c tele I had long d/w daughter 04/15 re patients poor prognosis and limited medical treatment options: -explained that without surgical correction of severe MR (she has been deemed not a candidate for due to cognitive decline and poor functional status by her primary service superintendent who has followed her closely and with whom patient has a long standing relationship), mortality is high and life expectancy is likely < 6 months; -discussed that Ms. Phan's quality of life has been extremely poor over the last 3 months due to recurrent CHF, hypoxia, intermittent organ failure and she has spent the majority of her days in hospital. Isa agreed with this. -recommended that goals of care be defined, including code status and recommended that a DNR/DNI would be appropriate. -Consider hospice
--- NOTE | 2019-04-21 12:37 | PN ---
Progress Note, Physician History of Present Illness: comfortable - Current Medication List Current Medications: Active Medications Albuterol Sulfate (Ventolin 0.083% Nebulizer Soln -) 1 amp NEB Q6H PRN PRN Reason: SHORT OF BREATH/WHEEZING Last Admin: 04/20/19 11:57 Dose: 1 amp Potassium Chloride 20 meq/ (Amino Acids) 1,010 mls @ 60 mls/hr IVPB Q17H [facility] Last Admin: 04/20/19 04:38 Dose: Not Given Piperacillin Sod/Tazobactam (Sod 2.25 gm/ Dextrose) 50 mls @ 100 mls/hr IVPB Q8H-IV PETTY; Protocol Last Admin: 04/21/19 12:29 Dose: 100 mls/hr Lactobacillus Acidophilus (Bacid -) 1 tab PO DAILY [facility] Last Admin: 04/20/19 09:33 Dose: 1 tab Lorazepam (Ativan -) 0.5 mg PO Q24H PRN PRN Reason: ANXIETY Metoprolol Succinate (Toprol Xl -) 25 mg PO BID [facility] Last Admin: 04/20/19 22:14 Dose: Not Given Mirtazapine (Remeron -) 15 mg PO HS [facility] Last Admin: 04/20/19 22:14 Dose: Not Given Ondansetron HCl (Zofran Injection) 4 mg IVPB Q4H PRN PRN Reason: NAUSEA AND/OR VOMITING Pantoprazole Sodium (Protonix -) 40 mg PO DAILY [facility] Last Admin: 04/20/19 09:34 Dose: 40 mg Potassium Chloride (Potassium Chloride Oral Liquid) 40 meq PO DAILY [facility] Last Admin: 04/20/19 09:34 Dose: 40 meq - Objective Vital Signs: Vital Signs Temperature 97.4 F L 04/21/19 10:00 Pulse Rate 68 04/21/19 10:00 Respiratory Rate 20 04/21/19 10:00 Blood Pressure 112/64 04/21/19 10:00 O2 Sat by Pulse Oximetry (%) 100 04/20/19 21:00 Constitutional: Yes: No Distress HENT: Yes: Atraumatic Neck: Yes: Supple Cardiovascular: Yes: Regular Rate and Rhythm Respiratory: Yes: CTA Bilaterally Gastrointestinal: Yes: Normal Bowel Sounds Extremities: Yes: WNL Neurological: Yes: Alert Labs: CBC, BMP 04/20/19 10:35 04/21/19 05:15 INR, PTT INR 1.69 (0.83-1.09) H 04/18/19 06:40 Problem List - Problems (1) LILLIE (acute kidney injury) Assessment/Plan: cr improving hyration Code(s): N17.9 - ACUTE KIDNEY FAILURE, UNSPECIFIED (2) Elevated troponin Assessment/Plan: stable Code(s): R74.8 - ABNORMAL LEVELS OF OTHER SERUM ENZYMES (3) CHF (congestive heart failure) Assessment/Plan: off of diuretics stable Code(s): I50.9 - HEART FAILURE, UNSPECIFIED (4) Dementia Code(s): F03.90 - UNSPECIFIED DEMENTIA WITHOUT BEHAVIORAL DISTURBANCE (5) GERD (gastroesophageal reflux disease) Assessment/Plan: on protonix Code(s): K21.9 - GASTRO-ESOPHAGEAL REFLUX DISEASE WITHOUT ESOPHAGITIS (6) Atrial fibrillation Code(s): I48.91 - UNSPECIFIED ATRIAL FIBRILLATION Qualifiers: Atrial fibrillation type: paroxysmal Qualified Code(s): I48.0 - Paroxysmal atrial fibrillation (7) HTN (hypertension) Assessment/Plan: on meds monitor Code(s): I10 - ESSENTIAL (PRIMARY) HYPERTENSION (8) Positive blood culture Assessment/Plan: on abx id consult Code(s): R78.81 - BACTEREMIA (9) Poor appetite Assessment/Plan: on ensure Code(s): R63.0 - ANOREXIA (10) Hypokalemia Code(s): E87.6 - HYPOKALEMIA (11) Dehydration Code(s): E86.0 - DEHYDRATION (12) Failure to thrive Code(s): [id number] - (13) Pacemaker Code(s): Z95.0 - PRESENCE OF CARDIAC PACEMAKER (14) Feeding difficulty in elderly Code(s): R63.3 - FEEDING DIFFICULTIES (15) Abnormal liver function test Code(s): R94.5 - ABNORMAL RESULTS OF LIVER FUNCTION STUDIES Assessment/Plan family agreed for dnr
[2019-04-21] MEDS: POTASSIUM CHLORIDE ORAL LIQUID 20 MEQ/15 ML PO SCH (12:59)
[2019-04-21] MEDS: metoPROLOL SUCCINATE 25 MG TAB.SR.24H (FP) PO SCH ×2 (12:59→21:48)
[2019-04-21] MEDS: PANTOPRAZOLE 40 MG TABLET (FP) PO SCH (12:59)
[2019-04-21] MEDS: LACTOBACILLUS ACIDOPHILUS 1 TABLET PO SCH (12:59)
--- NOTE | 2019-04-21 13:34 | PN ---
Progress Note, Physician History of Present Illness: Pt seen and examined at bedside. She is fatigued and appears confused. - Current Medication List Current Medications: Active Medications Albuterol Sulfate (Ventolin 0.083% Nebulizer Soln -) 1 amp NEB Q6H PRN PRN Reason: SHORT OF BREATH/WHEEZING Last Admin: 04/20/19 11:57 Dose: 1 amp Potassium Chloride 20 meq/ (Amino Acids) 1,010 mls @ 60 mls/hr IVPB Q17H [facility] Last Admin: 04/20/19 04:38 Dose: Not Given Piperacillin Sod/Tazobactam (Sod 2.25 gm/ Dextrose) 50 mls @ 100 mls/hr IVPB Q8H-IV [facility]; Protocol Last Admin: 04/21/19 12:29 Dose: 100 mls/hr Lactobacillus Acidophilus (Bacid -) 1 tab PO DAILY [facility] Last Admin: 04/21/19 12:59 Dose: Not Given Lorazepam (Ativan -) 0.5 mg PO Q24H PRN PRN Reason: ANXIETY Metoprolol Succinate (Toprol Xl -) 25 mg PO BID [facility] Last Admin: 04/21/19 12:59 Dose: Not Given Mirtazapine (Remeron -) 15 mg PO HS [facility] Last Admin: 04/20/19 22:14 Dose: Not Given Ondansetron HCl (Zofran Injection) 4 mg IVPB Q4H PRN PRN Reason: NAUSEA AND/OR VOMITING Pantoprazole Sodium (Protonix -) 40 mg PO DAILY [facility] Last Admin: 04/21/19 12:59 Dose: Not Given Potassium Chloride (Potassium Chloride Oral Liquid) 40 meq PO DAILY [facility] Last Admin: 04/21/19 12:59 Dose: Not Given - Objective Vital Signs: Vital Signs Temperature 97.4 F L 04/21/19 10:00 Pulse Rate 68 04/21/19 10:00 Respiratory Rate 20 04/21/19 10:00 Blood Pressure 112/64 04/21/19 10:00 O2 Sat by Pulse Oximetry (%) 100 04/20/19 21:00 Constitutional: Yes: Calm Eyes: Yes: Conjunctiva Clear HENT: Yes: Atraumatic Neck: Yes: Supple Cardiovascular: Yes: S1, S2 Respiratory: Yes: CTA Bilaterally Gastrointestinal: Yes: Normal Bowel Sounds, Soft Genitourinary: Yes: WNL Musculoskeletal: Yes: WNL Edema: Yes Edema: LLE: Trace, RLE: Trace Neurological: Yes: Confusion Psychiatric: Yes: Agitated Labs: CBC, BMP 04/20/19 10:35 04/21/19 05:15 INR, PTT INR 1.69 (0.83-1.09) H 04/18/19 06:40 Problem List - Problems (1) LILLIE (acute kidney injury) Code(s): N17.9 - ACUTE KIDNEY FAILURE, UNSPECIFIED (2) Hypernatremia Code(s): E87.0 - HYPEROSMOLALITY AND HYPERNATREMIA Assessment/Plan Current Medications Generic Name Dose Route Start Last Admin Trade Name Freq PRN Reason Stop Dose Admin Albuterol Sulfate 1 amp 04/18/19 10:31 04/20/19 11:57 Ventolin 0.083% Nebulizer Soln - NEB 1 amp Q6H PRN Administration SHORT OF BREATH/WHEEZING Potassium Chloride 20 meq/ 1,010 mls @ 60 mls/hr 04/18/19 17:00 04/20/19 04: 38 Amino Acids IVPB Not Given Q17H [facility] Piperacillin Sod/Tazobactam 50 mls @ 100 mls/hr 04/20/19 18:00 04/21/19 12:29 Sod 2.25 gm/ Dextrose IVPB 100 mls/hr Q8H-IV [facility] Administration Protocol Lactobacillus Acidophilus 1 tab 03/31/19 12:00 04/21/19 12:59 Bacid - PO Not Given DAILY [facility] Lorazepam 0.5 mg 04/20/19 17:59 Ativan - PO Q24H PRN ANXIETY Metoprolol Succinate 25 mg 04/09/19 10:15 04/21/19 12:59 Toprol Xl - PO Not Given BID [facility] Mirtazapine 15 mg 03/28/19 22:00 04/20/19 22:14 Remeron - PO Not Given HS [facility] Ondansetron HCl 4 mg 04/08/19 15:37 Zofran Injection IVPB Q4H PRN NAUSEA AND/OR VOMITING Pantoprazole Sodium 40 mg 03/28/19 13:00 04/21/19 12:59 Protonix - PO Not Given DAILY [facility] Potassium Chloride 40 meq 04/18/19 10:30 04/21/19 12:59 Potassium Chloride Oral Liquid PO Not Given DAILY [facility] Impression 1. LILLIE 2. chf 3. mitral regurg 4. dementia 5. a-fib 6. hld 7. solitary right kidney 8. UTI 9. right side hydro 10. bacteremia 11. hypernatremia 12. hypokalemia 13. transaminitis Plan - renal function is worsening - pts in increasingly confused - will give another amp of bicarb - will adjust fluids - renal function worsening - cont clinimix for now - pt is doing poorly
[2019-04-21] MEDS ORDERED: PT OWN MED DRAWER 7, Y5N ONE (17:15)
[2019-04-21] MEDS: ALBUTEROL SO4 0.083% IH SOL 2.5 MG/3 ML VIAL.NEB. NEB PRN (18:22)
[2019-04-21] MEDS: MIRTAZAPINE 15 MG TABLET (FP) PO SCH (21:48)
[2019-04-21] MEDS: SODIUM BICARBONATE 8.4% - 50 MEQ in DEXTROSE 5%-0.45% SALINE 1,000 ML IV SCH (21:49)
[2019-04-21] MEDS: MORPHINE SULFATE 2 MG/ML VIAL IVPUSH PRN (21:49)
[2019-04-21] MEDS: POTASSIUM CHLORIDE 20 MEQ in AMINO ACIDS 4.25%/D5W 1,000 ML IVPB SCH ×2 (22:01→23:24)
[2019-04-22] MEDS ORDERED: DEXTROSE 5%-WATER - 50 ML IVPB ONE ×3 (01:48→17:41)
[2019-04-22] MEDS ORDERED: PIPERACILLIN/TAZOBACTAM 2.25 GM VIAL IVPB ONE ×3 (01:48→17:41)
[2019-04-22] MEDS: PIPERACILLIN/TAZOB 2.25 GM 2.25 GM in DEXTROSE 5%-WATER - 50 ML IVPB SCH ×3 (01:53→17:43)
[2019-04-22 07:34] LABS: ALBUMIN 1.9 g/dl (3.4-5.0); BILIRUBIN,TOTAL 3.2 mg/dL (0.2-1); CALCIUM 8.2 mg/dL (8.5-10.1); CREATININE 3.4 mg/dL (0.55-1.3); POTASSIUM 4.4 mmol/L (3.5-5.1)
[2019-04-22 07:35] LABS: BLOOD UREA NITROGEN 176.8 mg/dL (7-18)
--- NOTE | 2019-04-22 09:59 | PN ---
Progress Note (short form) - Note Progress Note: s: lethargic TELE: SR - Current Medication List Current Medications Generic Name Dose Route Start Last Admin Trade Name Freq PRN Reason Stop Dose Admin Albuterol Sulfate 1 amp 04/18/19 10:31 04/21/19 18:22 Ventolin 0.083% Nebulizer Soln - NEB 1 amp Q6H PRN Administration SHORT OF BREATH/WHEEZING Piperacillin Sod/Tazobactam 50 mls @ 100 mls/hr 04/20/19 18:00 04/22/19 01:53 Sod 2.25 gm/ Dextrose IVPB 100 mls/hr Q8H-IV PETTY Administration Protocol Sodium Bicarbonate 50 meq/ 1,050 mls @ 35 mls/hr 04/21/19 13:45 04/21/19 21: 49 Dextrose/Sodium Chloride IV 35 mls/hr Q28H PETTY Administration Lactobacillus Acidophilus 1 tab 03/31/19 12:00 04/21/19 12:59 Bacid - PO Not Given DAILY PETTY Lorazepam 0.5 mg 04/20/19 17:59 Ativan - PO Q24H PRN ANXIETY Metoprolol Succinate 25 mg 04/09/19 10:15 04/21/19 21:48 Toprol Xl - PO Not Given BID PETTY Mirtazapine 15 mg 03/28/19 22:00 04/21/19 21:48 Remeron - PO Not Given HS PETTY Morphine Sulfate 1 mg 04/21/19 18:56 04/21/19 21:49 Morphine Sulfate IVPUSH 1 mg Q6H PRN Administration COMFORT Ondansetron HCl 4 mg 04/08/19 15:37 Zofran Injection IVPB Q4H PRN NAUSEA AND/OR VOMITING Pantoprazole Sodium 40 mg 03/28/19 13:00 04/21/19 12:59 Protonix - PO Not Given DAILY PETTY Potassium Chloride 40 meq 04/18/19 10:30 04/21/19 12:59 Potassium Chloride Oral Liquid PO Not Given DAILY PETTY Vital Signs Period Temp Pulse Resp BP Sys/Rice Pulse Ox Last 24 Hr 97.2 F-97.6 F 63-110 20-28 96-118/42-73 95 Constitutional: Yes: No Distress Cardiovascular: Yes: Regular Rate and Rhythm Respiratory: Yes: CTA Bilaterally (no rales) poor effort Gastrointestinal: Yes: Soft (NT) Edema: no Neurological: Yes:lethargic no jaundice diaphoresis Labs: CBC, BMP 04/20/19 10:35 04/22/19 06:00 - ....Imaging EKG: Image Reviewed Assessment/Plan IMP: Severe chronic MR with chronic valvular CHF PAF s/p PPM Bacteremia, possible IE on group home IV abx CKD with acute renal failure Worsening transaminitis and coagulopathy, liver failure of unclear etiology likely multifactorial REC: 1. Case was discussed with her primary frame operator Dr. Bagley, renal and GI team here 04/14, with CXR clear and CT abdomen only minimal pleural effusions. -Lasix was resumed with the thinking that worsened renal function and liver fx could be reflective of poor cardiac output (passive hepatic congestion and cardiorenal syndrome). -significant weight gain vs prior discharge wt. -lasix held by renal over weekend, 1/2 NS with bicarb started for hypernatremia -CXR largely unchanged -given poor po intake, sam, hypernatremia, would hold diuretic for now -rising bun/cr, poor prognosis 2. Off AC now due to acute liver failure and coagulopathy. 3. severe transaminitis: -w/u by GI unrevealing, statin held -? congestive-as above 4. dispo/goals of care: Dr arteaga had long d/w daughter 04/15 re patients poor prognosis and limited medical treatment options: -explained that without surgical correction of severe MR (she has been deemed not a candidate for due to cognitive decline and poor functional status by her primary frame operator who has followed her closely and with whom patient has a long standing relationship), mortality is high and life expectancy is likely < 6 months; -discussed that Ms. Phan's quality of life has been extremely poor over the last 3 months due to recurrent CHF, hypoxia, intermittent organ failure and she has spent the majority of her days in hospital. Candace agreed with this. -recommended that goals of care be defined, including code status and recommended that a DNR/DNI would be appropriate. Candace agreed and stated that he mother had a DNR order in effect 25 years ago but that she was now conflicted about instituting it during these hospitalizations because her mother has expressed "a will to live" during "more lucid moments". Candace stated she would discuss the advanced directive with her parents again and give us direction. -spoke with candace 04/20 as well, still unsure of goals of care. Pt will likely benefit from hospice.
[2019-04-22] MEDS: metoPROLOL SUCCINATE 25 MG TAB.SR.24H (FP) PO SCH ×2 (10:40→23:04)
[2019-04-22] MEDS: PANTOPRAZOLE 40 MG TABLET (FP) PO SCH (10:41)
[2019-04-22] MEDS: LACTOBACILLUS ACIDOPHILUS 1 TABLET PO SCH (10:41)
[2019-04-22] MEDS: POTASSIUM CHLORIDE ORAL LIQUID 20 MEQ/15 ML PO SCH (10:42)
--- NOTE | 2019-04-22 12:44 | PN ---
Progress Note (short form) - Note Progress Note: more lethargic unable to eat able to resppond to voice- denies pain at bedside Vital Signs Period Temp Pulse Resp BP Sys/Rice Pulse Ox Last 24 Hr 97.2 F-97.7 F 63-110 20-28 96-118/42-73 95-95 dry oral mucosa cor rrr murmur unchanged lungs decreased bs at bses abd soft,nt ext +edema CBC, BMP 04/20/19 10:35 04/22/19 06:00 Microbiology 03/28/19 17:00 Blood - Peripheral Venous Blood Culture - Final NO GROWTH AFTER 5 DAYS INCUBATION 03/28/19 17:00 Blood - Peripheral Venous Blood Culture - Final NO GROWTH AFTER 5 DAYS INCUBATION 03/27/19 15:55 Blood - Peripheral Venous Blood Culture - Final Enterococcus Faecalis 03/27/19 15:55 Blood - Peripheral Venous Blood Culture - Final Enterococcus Faecalis 03/27/19 16:34 Urine - Urine Clean Catch Urine Culture - Final Contaminated: Please Repeat echo+valvular disease, no obvious vegetations noted a/p leukocytosis- no diarrhea reported by nursing staff-on coverage for aspiration pneumonia as well as enterococcal pneumonia continue zosyn, check vanco trough and redose they were not able to obtain the blood cultures I ordered prior to switching antibiotics enterococcal bacteremia-cannot r/o endocarditis with valvular heart disease and PPM-day #24 ampicillin valvular heart disease PPM lillie/ckd- worsening abnl lfts- persistent overall worsening per conversation with her daughter yesterday they are still discussing further options family has agreed to dnr/dni she has been declining she is not eating overall prognosis is grim Problem List - Problems (1) Positive blood culture Code(s): R78.81 - BACTEREMIA (2) LILLIE (acute kidney injury) Code(s): N17.9 - ACUTE KIDNEY FAILURE, UNSPECIFIED (3) Mitral valve regurgitation Code(s): I34.0 - NONRHEUMATIC MITRAL (VALVE) INSUFFICIENCY (4) Pacemaker Code(s): Z95.0 - PRESENCE OF CARDIAC PACEMAKER
[2019-04-22] MEDS: MORPHINE SULFATE 2 MG/ML VIAL IVPUSH PRN (14:30)
--- NOTE | 2019-04-22 16:29 | PN ---
Progress Note, Physician History of Present Illness: Pt seen and examined at bedside. She appears fatigued. Pt is lethargic. - Current Medication List Current Medications: Active Medications Albuterol Sulfate (Ventolin 0.083% Nebulizer Soln -) 1 amp NEB Q6H PRN PRN Reason: SHORT OF BREATH/WHEEZING Last Admin: 04/21/19 18:22 Dose: 1 amp Piperacillin Sod/Tazobactam (Sod 2.25 gm/ Dextrose) 50 mls @ 100 mls/hr IVPB Q8H-IV PETTY; Protocol Last Admin: 04/22/19 10:41 Dose: 100 mls/hr Sodium Bicarbonate 50 meq/ (Dextrose/Sodium Chloride) 1,050 mls @ 35 mls/hr IV Q28H PETTY Last Admin: 04/21/19 21:49 Dose: 35 mls/hr Lactobacillus Acidophilus (Bacid -) 1 tab PO DAILY PETTY Last Admin: 04/22/19 10:41 Dose: Not Given Lorazepam (Ativan -) 0.5 mg PO Q24H PRN PRN Reason: ANXIETY Metoprolol Succinate (Toprol Xl -) 25 mg PO BID [facility] Last Admin: 04/22/19 10:40 Dose: Not Given Mirtazapine (Remeron -) 15 mg PO HS [facility] Last Admin: 04/21/19 21:48 Dose: Not Given Morphine Sulfate (Morphine Sulfate) 1 mg IVPUSH Q6H PRN PRN Reason: COMFORT Last Admin: 04/22/19 14:30 Dose: 1 mg Ondansetron HCl (Zofran Injection) 4 mg IVPB Q4H PRN PRN Reason: NAUSEA AND/OR VOMITING Pantoprazole Sodium (Protonix -) 40 mg PO DAILY [facility] Last Admin: 04/22/19 10:41 Dose: Not Given Potassium Chloride (Potassium Chloride Oral Liquid) 40 meq PO DAILY [facility] Last Admin: 04/22/19 10:42 Dose: Not Given - Objective Vital Signs: Vital Signs Temperature 97.7 F 04/22/19 10:00 Pulse Rate 68 04/22/19 14:42 Respiratory Rate 28 H 04/22/19 14:42 Blood Pressure 119/58 L 04/22/19 14:42 O2 Sat by Pulse Oximetry (%) 95 04/22/19 09:00 Constitutional: Yes: Calm Eyes: Yes: Conjunctiva Clear HENT: Yes: Atraumatic Cardiovascular: Yes: S1, S2 Respiratory: Yes: On Nasal O2 Gastrointestinal: Yes: Soft Genitourinary: Yes: Incontinence Musculoskeletal: Yes: Muscle Weakness Edema: Yes Edema: LLE: 1+, RLE: 1+ Neurological: Yes: Lethargy Labs: CBC, BMP 04/20/19 10:35 04/22/19 06:00 INR, PTT INR 1.69 (0.83-1.09) H 04/18/19 06:40 Problem List - Problems (1) LILLIE (acute kidney injury) Code(s): N17.9 - ACUTE KIDNEY FAILURE, UNSPECIFIED (2) Hypernatremia Code(s): E87.0 - HYPEROSMOLALITY AND HYPERNATREMIA Assessment/Plan Current Medications Generic Name Dose Route Start Last Admin Trade Name Freq PRN Reason Stop Dose Admin Albuterol Sulfate 1 amp 04/18/19 10:31 04/21/19 18:22 Ventolin 0.083% Nebulizer Soln - NEB 1 amp Q6H PRN Administration SHORT OF BREATH/WHEEZING Piperacillin Sod/Tazobactam 50 mls @ 100 mls/hr 04/20/19 18:00 04/22/19 10:41 Sod 2.25 gm/ Dextrose IVPB 100 mls/hr Q8H-IV PETTY Administration Protocol Sodium Bicarbonate 50 meq/ 1,050 mls @ 35 mls/hr 04/21/19 13:45 04/21/19 21: 49 Dextrose/Sodium Chloride IV 35 mls/hr Q28H PETTY Administration Lactobacillus Acidophilus 1 tab 03/31/19 12:00 04/22/19 10:41 Bacid - PO Not Given DAILY PETTY Lorazepam 0.5 mg 04/20/19 17:59 Ativan - PO Q24H PRN ANXIETY Metoprolol Succinate 25 mg 04/09/19 10:15 04/22/19 10:40 Toprol Xl - PO Not Given BID PETTY Mirtazapine 15 mg 03/28/19 22:00 04/21/19 21:48 Remeron - PO Not Given HS PETTY Morphine Sulfate 1 mg 04/21/19 18:56 04/22/19 14:30 Morphine Sulfate IVPUSH 1 mg Q6H PRN Administration COMFORT Ondansetron HCl 4 mg 04/08/19 15:37 Zofran Injection IVPB Q4H PRN NAUSEA AND/OR VOMITING Pantoprazole Sodium 40 mg 03/28/19 13:00 04/22/19 10:41 Protonix - PO Not Given DAILY PETTY Potassium Chloride 40 meq 04/18/19 10:30 04/22/19 10:42 Potassium Chloride Oral Liquid PO Not Given DAILY PETTY Impression 1. LILLIE 2. chf 3. mitral regurg 4. dementia 5. a-fib 6. hld 7. solitary right kidney 8. UTI 9. right side hydro 10. bacteremia 11. hypernatremia 12. hypokalemia 13. transaminitis Plan - pt clinically doing poorly - pt is lethargic - cont supportive care - discussed with family
--- NOTE | 2019-04-22 17:51 | PN ---
Progress Note, Physician - Current Medication List Current Medications: Active Medications Albuterol Sulfate (Ventolin 0.083% Nebulizer Soln -) 1 amp NEB Q6H PRN PRN Reason: SHORT OF BREATH/WHEEZING Last Admin: 04/21/19 18:22 Dose: 1 amp Piperacillin Sod/Tazobactam (Sod 2.25 gm/ Dextrose) 50 mls @ 100 mls/hr IVPB Q8H-IV PETTY; Protocol Last Admin: 04/22/19 17:43 Dose: 100 mls/hr Sodium Bicarbonate 50 meq/ (Dextrose/Sodium Chloride) 1,050 mls @ 35 mls/hr IV Q28H [facility] Last Admin: 04/21/19 21:49 Dose: 35 mls/hr Lactobacillus Acidophilus (Bacid -) 1 tab PO DAILY [facility] Last Admin: 04/22/19 10:41 Dose: Not Given Lorazepam (Ativan -) 0.5 mg PO Q24H PRN PRN Reason: ANXIETY Metoprolol Succinate (Toprol Xl -) 25 mg PO BID [facility] Last Admin: 04/22/19 10:40 Dose: Not Given Mirtazapine (Remeron -) 15 mg PO HS [facility] Last Admin: 04/21/19 21:48 Dose: Not Given Morphine Sulfate (Morphine Sulfate) 1 mg IVPUSH Q6H PRN PRN Reason: COMFORT Last Admin: 04/22/19 14:30 Dose: 1 mg Ondansetron HCl (Zofran Injection) 4 mg IVPB Q4H PRN PRN Reason: NAUSEA AND/OR VOMITING Pantoprazole Sodium (Protonix -) 40 mg PO DAILY [facility] Last Admin: 04/22/19 10:41 Dose: Not Given Potassium Chloride (Potassium Chloride Oral Liquid) 40 meq PO DAILY [facility] Last Admin: 04/22/19 10:42 Dose: Not Given - Objective Vital Signs: Vital Signs Temperature 97.7 F 04/22/19 10:00 Pulse Rate 68 04/22/19 14:42 Respiratory Rate 28 H 04/22/19 14:42 Blood Pressure 119/58 L 04/22/19 14:42 O2 Sat by Pulse Oximetry (%) 95 04/22/19 09:00 Constitutional: Yes: Calm HENT: Yes: Atraumatic Neck: Yes: Supple Cardiovascular: Yes: Regular Rate and Rhythm Respiratory: Yes: CTA Bilaterally Gastrointestinal: Yes: Normal Bowel Sounds Neurological: Yes: Alert Labs: CBC, BMP 04/20/19 10:35 04/22/19 06:00 INR, PTT INR 1.69 (0.83-1.09) H 04/18/19 06:40 Problem List - Problems (1) LILLIE (acute kidney injury) Code(s): N17.9 - ACUTE KIDNEY FAILURE, UNSPECIFIED (2) Elevated troponin Assessment/Plan: stable Code(s): R74.8 - ABNORMAL LEVELS OF OTHER SERUM ENZYMES (3) CHF (congestive heart failure) Assessment/Plan: off of diuretics stable Code(s): I50.9 - HEART FAILURE, UNSPECIFIED (4) Dementia Code(s): F03.90 - UNSPECIFIED DEMENTIA WITHOUT BEHAVIORAL DISTURBANCE (5) GERD (gastroesophageal reflux disease) Code(s): K21.9 - GASTRO-ESOPHAGEAL REFLUX DISEASE WITHOUT ESOPHAGITIS (6) Atrial fibrillation Code(s): I48.91 - UNSPECIFIED ATRIAL FIBRILLATION Qualifiers: Atrial fibrillation type: paroxysmal Qualified Code(s): I48.0 - Paroxysmal atrial fibrillation (7) HTN (hypertension) Code(s): I10 - ESSENTIAL (PRIMARY) HYPERTENSION (8) Positive blood culture Code(s): R78.81 - BACTEREMIA (9) Poor appetite Code(s): R63.0 - ANOREXIA (10) Hypokalemia Code(s): E87.6 - HYPOKALEMIA (11) Dehydration Code(s): E86.0 - DEHYDRATION (12) Failure to thrive Code(s): [id number] - (13) Pacemaker Code(s): Z95.0 - PRESENCE OF CARDIAC PACEMAKER (14) Feeding difficulty in elderly Code(s): R63.3 - FEEDING DIFFICULTIES (15) Abnormal liver function test Code(s): R94.5 - ABNORMAL RESULTS OF LIVER FUNCTION STUDIES Assessment/Plan continue current management
[2019-04-22] MEDS ORDERED: SODIUM CHLORIDE 1,000 ML IV SCH (18:00)
[2019-04-22] MEDS: SODIUM BICARBONATE 8.4% - 50 MEQ in DEXTROSE 5%-0.45% SALINE 1,000 ML IV SCH (18:49)
[2019-04-22] MEDS: ALBUTEROL SO4 0.083% IH SOL 2.5 MG/3 ML VIAL.NEB. NEB PRN (21:15)
[2019-04-22] MEDS: MIRTAZAPINE 15 MG TABLET (FP) PO SCH (23:04)
[2019-04-23] MEDS ORDERED: PIPERACILLIN/TAZOBACTAM 2.25 GM VIAL IVPB ONE ×3 (02:59→18:23)
[2019-04-23] MEDS ORDERED: DEXTROSE 5%-WATER - 50 ML IVPB ONE ×3 (03:00→18:23)
[2019-04-23] MEDS: PIPERACILLIN/TAZOB 2.25 GM 2.25 GM in DEXTROSE 5%-WATER - 50 ML IVPB SCH ×3 (03:04→18:27)
[2019-04-23] MEDS: LACTOBACILLUS ACIDOPHILUS 1 TABLET PO SCH (09:13)
[2019-04-23] MEDS: metoPROLOL SUCCINATE 25 MG TAB.SR.24H (FP) PO SCH ×2 (09:14→23:22)
[2019-04-23] MEDS: PANTOPRAZOLE 40 MG TABLET (FP) PO SCH (09:14)
[2019-04-23] MEDS: POTASSIUM CHLORIDE ORAL LIQUID 20 MEQ/15 ML PO SCH (09:14)
--- NOTE | 2019-04-23 10:39 | PN ---
Progress Note (short form) - Note Progress Note: s: lethargic TELE: SR - Current Medication List Current Medications Generic Name Dose Route Start Last Admin Trade Name Freq PRN Reason Stop Dose Admin Piperacillin Sod/Tazobactam 50 mls @ 100 mls/hr 04/20/19 18:00 04/23/19 09:20 Sod 2.25 gm/ Dextrose IVPB 100 mls/hr Q8H-IV PETTY Administration Protocol Sodium Bicarbonate 50 meq/ 1,050 mls @ 35 mls/hr 04/21/19 13:45 04/22/19 18: 49 Dextrose/Sodium Chloride IV 35 mls/hr Q28H PETTY Administration Sodium Chloride 1,000 mls @ 50 mls/hr 04/22/19 18:00 04/22/19 23:06 Normal Saline - IV 50 mls/hr ASDIR PETTY Administration Lactobacillus Acidophilus 1 tab 03/31/19 12:00 04/23/19 09:13 Bacid - PO Not Given DAILY PETTY Lorazepam 0.5 mg 04/20/19 17:59 Ativan - PO Q24H PRN ANXIETY Metoprolol Succinate 25 mg 04/09/19 10:15 04/23/19 09:14 Toprol Xl - PO Not Given BID PETTY Mirtazapine 15 mg 03/28/19 22:00 04/22/19 23:04 Remeron - PO Not Given HS PETTY Morphine Sulfate 1 mg 04/21/19 18:56 04/22/19 14:30 Morphine Sulfate IVPUSH 1 mg Q6H PRN Administration COMFORT Ondansetron HCl 4 mg 04/08/19 15:37 Zofran Injection IVPB Q4H PRN NAUSEA AND/OR VOMITING Pantoprazole Sodium 40 mg 03/28/19 13:00 04/23/19 09:14 Protonix - PO Not Given DAILY PETTY Potassium Chloride 40 meq 04/18/19 10:30 04/23/19 09:14 Potassium Chloride Oral Liquid PO Not Given DAILY PETTY Vital Signs Period Temp Pulse Resp BP Sys/Irce Pulse Ox Last 24 Hr 97.7 F-98.6 F 63-68 20-28 99-119/46-58 95-95 Constitutional: Yes: No Distress Cardiovascular: Yes: Regular Rate and Rhythm Respiratory: Yes: CTA Bilaterally (no rales) poor effort Gastrointestinal: Yes: Soft (NT) Edema: no Neurological: Yes:lethargic no jaundice diaphoresis Labs: CBC, BMP 04/20/19 10:35 04/22/19 06:00 - ....Imaging EKG: Image Reviewed Assessment/Plan IMP: Severe chronic MR with chronic valvular CHF PAF s/p PPM Bacteremia, possible IE on director long term care IV abx CKD with acute renal failure Worsening transaminitis and coagulopathy, liver failure of unclear etiology likely multifactorial REC: 1. Case was discussed with her primary senior analyst programmer Dr. Bagley, renal and GI team here 04/14, with CXR clear and CT abdomen only minimal pleural effusions. -Lasix was resumed with the thinking that worsened renal function and liver fx could be reflective of poor cardiac output (passive hepatic congestion and cardiorenal syndrome). -significant weight gain vs prior discharge wt. -lasix held by renal over weekend, 1/2 NS with bicarb started for hypernatremia -CXR largely unchanged -given poor po intake, sam, hypernatremia, holding diuretic -rising bun/cr, poor prognosis 2. Off AC now due to acute liver failure and coagulopathy. 3. severe transaminitis: -w/u by GI unrevealing, statin held -? congestive-as above 4. dispo/goals of care: Dr arteaga had long d/w daughter 04/15 re patients poor prognosis and limited medical treatment options: -explained that without surgical correction of severe MR (she has been deemed not a candidate for due to cognitive decline and poor functional status by her primary senior analyst programmer who has followed her closely and with whom patient has a long standing relationship), mortality is high and life expectancy is likely < 6 months; -discussed that Ms. Phan's quality of life has been extremely poor over the last 3 months due to recurrent CHF, hypoxia, intermittent organ failure and she has spent the majority of her days in hospital. Candace agreed with this. -recommended that goals of care be defined, including code status and recommended that a DNR/DNI would be appropriate. Candace agreed and stated that he mother had a DNR order in effect 25 years ago but that she was now conflicted about instituting it during these hospitalizations because her mother has expressed "a will to live" during "more lucid moments". Candace stated she would discuss the advanced directive with her parents again and give us direction. -spoke with candace 04/20 as well, still unsure of goals of care. Pt will likely benefit from hospice.
--- NOTE | 2019-04-23 12:05 | PN ---
Progress Note (short form) - Note Progress Note: more lethargic unable to eat daughter at bedside Vital Signs Period Temp Pulse Resp BP Sys/Rice Pulse Ox Last 24 Hr 97.7 F-98.6 F 63-70 20-28 99-120/46-65 95-95 cor-rrr lungs decrased bs at bases abd soft,nt ext trace edema CBC, BMP 04/20/19 10:35 04/22/19 06:00 Microbiology 03/28/19 17:00 Blood - Peripheral Venous Blood Culture - Final NO GROWTH AFTER 5 DAYS INCUBATION 03/28/19 17:00 Blood - Peripheral Venous Blood Culture - Final NO GROWTH AFTER 5 DAYS INCUBATION 03/27/19 15:55 Blood - Peripheral Venous Blood Culture - Final Enterococcus Faecalis 03/27/19 15:55 Blood - Peripheral Venous Blood Culture - Final Enterococcus Faecalis 03/27/19 16:34 Urine - Urine Clean Catch Urine Culture - Final Contaminated: Please Repeat echo+valvular disease, no obvious vegetations noted a/p leukocytosis- no diarrhea reported by nursing staff-on coverage for aspiration pneumonia as well as enterococcal pneumonia continue zosyn, check vanco trough and redose- level 12, 500 mg vanco today they were not able to obtain the blood cultures I ordered prior to switching antibiotics enterococcal bacteremia-cannot r/o endocarditis with valvular heart disease and PPM-day #24 ampicillin valvular heart disease PPM lillie/ckd- worsening abnl lfts- persistent overall worsening planning for hospice next week, daughter not yet ready to stop the antibiotics family has agreed to dnr/dni she has been declining she is not eating overall prognosis is grim Problem List - Problems (1) Positive blood culture Code(s): R78.81 - BACTEREMIA (2) LILLIE (acute kidney injury) Code(s): N17.9 - ACUTE KIDNEY FAILURE, UNSPECIFIED (3) Mitral valve regurgitation Code(s): I34.0 - NONRHEUMATIC MITRAL (VALVE) INSUFFICIENCY (4) Pacemaker Code(s): Z95.0 - PRESENCE OF CARDIAC PACEMAKER
[2019-04-23] MEDS ORDERED: PT OWN MED DRAWER 7, Y5N ONE (13:19)
[2019-04-23] MEDS ORDERED: VANCOMYCIN 500 MG in DEXTROSE 5%-WATER - 100 ML IVPB ONE (13:30)
--- NOTE | 2019-04-23 18:55 | PN ---
Progress Note, Physician - Current Medication List Current Medications: Active Medications Piperacillin Sod/Tazobactam (Sod 2.25 gm/ Dextrose) 50 mls @ 100 mls/hr IVPB Q8H-IV PETTY; Protocol Last Admin: 04/23/19 18:27 Dose: 100 mls/hr Sodium Bicarbonate 50 meq/ (Dextrose/Sodium Chloride) 1,050 mls @ 35 mls/hr IV Q28H [facility] Last Admin: 04/22/19 18:49 Dose: 35 mls/hr Sodium Chloride (Normal Saline -) 1,000 mls @ 50 mls/hr IV ASDIR [facility] Last Admin: 04/22/19 23:06 Dose: 50 mls/hr Lactobacillus Acidophilus (Bacid -) 1 tab PO DAILY [facility] Last Admin: 04/23/19 09:13 Dose: Not Given Metoprolol Succinate (Toprol Xl -) 25 mg PO BID [facility] Last Admin: 04/23/19 09:14 Dose: Not Given Mirtazapine (Remeron -) 15 mg PO HS [facility] Last Admin: 04/22/19 23:04 Dose: Not Given Morphine Sulfate (Morphine Sulfate) 1 mg IVPUSH Q6H PRN PRN Reason: COMFORT Last Admin: 04/22/19 14:30 Dose: 1 mg Ondansetron HCl (Zofran Injection) 4 mg IVPB Q4H PRN PRN Reason: NAUSEA AND/OR VOMITING Pantoprazole Sodium (Protonix -) 40 mg PO DAILY [facility] Last Admin: 04/23/19 09:14 Dose: Not Given Potassium Chloride (Potassium Chloride Oral Liquid) 40 meq PO DAILY [facility] Last Admin: 04/23/19 09:14 Dose: Not Given - Objective Vital Signs: Vital Signs Temperature 98.1 F 04/23/19 14:00 Pulse Rate 66 04/23/19 14:00 Respiratory Rate 20 04/23/19 10:00 Blood Pressure 116/52 L 04/23/19 14:00 O2 Sat by Pulse Oximetry (%) 95 04/23/19 08:47 Constitutional: Yes: Anxious HENT: Yes: Atraumatic Neck: Yes: Supple Cardiovascular: Yes: Regular Rate and Rhythm Respiratory: Yes: Rhonchi Gastrointestinal: Yes: Normal Bowel Sounds Edema: No Neurological: Yes: Alert Labs: CBC, BMP 04/20/19 10:35 04/22/19 06:00 INR, PTT INR 1.69 (0.83-1.09) H 04/18/19 06:40 Problem List - Problems (1) LILLIE (acute kidney injury) Assessment/Plan: monitor renal on board Code(s): N17.9 - ACUTE KIDNEY FAILURE, UNSPECIFIED (2) Elevated troponin Assessment/Plan: stable Code(s): R74.8 - ABNORMAL LEVELS OF OTHER SERUM ENZYMES (3) CHF (congestive heart failure) Assessment/Plan: off of diuretics stable Code(s): I50.9 - HEART FAILURE, UNSPECIFIED (4) Dementia Code(s): F03.90 - UNSPECIFIED DEMENTIA WITHOUT BEHAVIORAL DISTURBANCE (5) GERD (gastroesophageal reflux disease) Code(s): K21.9 - GASTRO-ESOPHAGEAL REFLUX DISEASE WITHOUT ESOPHAGITIS (6) Atrial fibrillation Code(s): I48.91 - UNSPECIFIED ATRIAL FIBRILLATION Qualifiers: Atrial fibrillation type: paroxysmal Qualified Code(s): I48.0 - Paroxysmal atrial fibrillation (7) HTN (hypertension) Code(s): I10 - ESSENTIAL (PRIMARY) HYPERTENSION (8) Positive blood culture Code(s): R78.81 - BACTEREMIA (9) Poor appetite Code(s): R63.0 - ANOREXIA (10) Hypokalemia Code(s): E87.6 - HYPOKALEMIA (11) Dehydration Code(s): E86.0 - DEHYDRATION (12) Failure to thrive Code(s): [id number] - (13) Pacemaker Code(s): Z95.0 - PRESENCE OF CARDIAC PACEMAKER (14) Feeding difficulty in elderly Code(s): R63.3 - FEEDING DIFFICULTIES (15) Abnormal liver function test Code(s): R94.5 - ABNORMAL RESULTS OF LIVER FUNCTION STUDIES Assessment/Plan dnr/dni family deciding for hospice
--- NOTE | 2019-04-23 18:56 | PN ---
Progress Note, Physician History of Present Illness: Pt seen and examined at bedside. She is awake. She appears fatigued. She is confused. - Current Medication List Current Medications: Active Medications Piperacillin Sod/Tazobactam (Sod 2.25 gm/ Dextrose) 50 mls @ 100 mls/hr IVPB Q8H-IV [facility]; Protocol Last Admin: 04/23/19 18:27 Dose: 100 mls/hr Sodium Bicarbonate 50 meq/ (Dextrose/Sodium Chloride) 1,050 mls @ 35 mls/hr IV Q28H [facility] Last Admin: 04/22/19 18:49 Dose: 35 mls/hr Sodium Chloride (Normal Saline -) 1,000 mls @ 50 mls/hr IV ASDIR [facility] Last Admin: 04/22/19 23:06 Dose: 50 mls/hr Lactobacillus Acidophilus (Bacid -) 1 tab PO DAILY [facility] Last Admin: 04/23/19 09:13 Dose: Not Given Metoprolol Succinate (Toprol Xl -) 25 mg PO BID [facility] Last Admin: 04/23/19 09:14 Dose: Not Given Mirtazapine (Remeron -) 15 mg PO HS [facility] Last Admin: 04/22/19 23:04 Dose: Not Given Morphine Sulfate (Morphine Sulfate) 1 mg IVPUSH Q6H PRN PRN Reason: COMFORT Last Admin: 04/22/19 14:30 Dose: 1 mg Ondansetron HCl (Zofran Injection) 4 mg IVPB Q4H PRN PRN Reason: NAUSEA AND/OR VOMITING Pantoprazole Sodium (Protonix -) 40 mg PO DAILY [facility] Last Admin: 04/23/19 09:14 Dose: Not Given Potassium Chloride (Potassium Chloride Oral Liquid) 40 meq PO DAILY [facility] Last Admin: 04/23/19 09:14 Dose: Not Given - Objective Vital Signs: Vital Signs Temperature 98.1 F 04/23/19 14:00 Pulse Rate 66 04/23/19 14:00 Respiratory Rate 20 04/23/19 10:00 Blood Pressure 116/52 L 04/23/19 14:00 O2 Sat by Pulse Oximetry (%) 95 04/23/19 08:47 Constitutional: Yes: Mild Distress Eyes: Yes: Conjunctiva Clear Cardiovascular: Yes: S1, S2 Respiratory: Yes: On Nasal O2, Rhonchi Gastrointestinal: Yes: Soft Genitourinary: Yes: Incontinence Musculoskeletal: Yes: Muscle Weakness Edema: Yes Edema: LLE: 1+, RLE: 1+ Integumentary: Yes: WNL Neurological: Yes: Confusion Labs: CBC, BMP 04/20/19 10:35 04/22/19 06:00 INR, PTT INR 1.69 (0.83-1.09) H 04/18/19 06:40 Problem List - Problems (1) LILLIE (acute kidney injury) Code(s): N17.9 - ACUTE KIDNEY FAILURE, UNSPECIFIED (2) Hypernatremia Code(s): E87.0 - HYPEROSMOLALITY AND HYPERNATREMIA Assessment/Plan Current Medications Generic Name Dose Route Start Last Admin Trade Name Freq PRN Reason Stop Dose Admin Piperacillin Sod/Tazobactam 50 mls @ 100 mls/hr 04/20/19 18:00 04/23/19 18:27 Sod 2.25 gm/ Dextrose IVPB 100 mls/hr Q8H-IV [facility] Administration Protocol Sodium Bicarbonate 50 meq/ 1,050 mls @ 35 mls/hr 04/21/19 13:45 04/22/19 18: 49 Dextrose/Sodium Chloride IV 35 mls/hr Q28H [facility] Administration Sodium Chloride 1,000 mls @ 50 mls/hr 04/22/19 18:00 04/22/19 23:06 Normal Saline - IV 50 mls/hr ASDIR [facility] Administration Lactobacillus Acidophilus 1 tab 03/31/19 12:00 04/23/19 09:13 Bacid - PO Not Given DAILY [facility] Metoprolol Succinate 25 mg 04/09/19 10:15 04/23/19 09:14 Toprol Xl - PO Not Given BID [facility] Mirtazapine 15 mg 03/28/19 22:00 04/22/19 23:04 Remeron - PO Not Given HS [facility] Morphine Sulfate 1 mg 04/21/19 18:56 04/22/19 14:30 Morphine Sulfate IVPUSH 1 mg Q6H PRN Administration COMFORT Ondansetron HCl 4 mg 04/08/19 15:37 Zofran Injection IVPB Q4H PRN NAUSEA AND/OR VOMITING Pantoprazole Sodium 40 mg 03/28/19 13:00 04/23/19 09:14 Protonix - PO Not Given DAILY [facility] Potassium Chloride 40 meq 04/18/19 10:30 04/23/19 09:14 Potassium Chloride Oral Liquid PO Not Given DAILY [facility] Impression 1. LILLIE 2. chf 3. mitral regurg 4. dementia 5. a-fib 6. hld 7. solitary right kidney 8. UTI 9. right side hydro 10. bacteremia 11. hypernatremia 12. hypokalemia 13. transaminitis Plan - no new labs - pt clinically doing poorly - pt more awake - pt getting morphine prn - cont supportive care
[2019-04-23] MEDS: MORPHINE SULFATE 2 MG/ML VIAL IVPUSH PRN (19:12)
[2019-04-23] MEDS: SODIUM BICARBONATE 8.4% - 50 MEQ in DEXTROSE 5%-0.45% SALINE 1,000 ML IV SCH (23:20)
[2019-04-23] MEDS: MIRTAZAPINE 15 MG TABLET (FP) PO SCH (23:22)
[2019-04-24] MEDS ORDERED: PIPERACILLIN/TAZOBACTAM 2.25 GM VIAL IVPB ONE ×2 (00:27→10:58)
[2019-04-24] MEDS ORDERED: DEXTROSE 5%-WATER - 50 ML IVPB ONE ×2 (00:27→10:58)
[2019-04-24] MEDS: MORPHINE SULFATE 2 MG/ML VIAL IVPUSH PRN ×3 (05:05→17:04)
[2019-04-24] MEDS: PIPERACILLIN/TAZOB 2.25 GM 2.25 GM in DEXTROSE 5%-WATER - 50 ML IVPB SCH ×3 (05:07→17:01)
[2019-04-24 07:32] LABS: ALBUMIN 1.6 g/dl (3.4-5.0); CALCIUM 7.6 mg/dL (8.5-10.1); CREATININE 3.4 mg/dL (0.55-1.3); POTASSIUM 3.6 mmol/L (3.5-5.1); TOT PROT 5.3 g/dl (6.4-8.2)
[2019-04-24 07:35] LABS: BLOOD UREA NITROGEN 168.2 mg/dL (7-18)
[2019-04-24] MEDS: LACTOBACILLUS ACIDOPHILUS 1 TABLET PO SCH (11:02)
[2019-04-24] MEDS: PANTOPRAZOLE 40 MG TABLET (FP) PO SCH (11:02)
[2019-04-24] MEDS: POTASSIUM CHLORIDE ORAL LIQUID 20 MEQ/15 ML PO SCH (11:02)
[2019-04-24] MEDS: metoPROLOL SUCCINATE 25 MG TAB.SR.24H (FP) PO SCH ×2 (11:03→22:47)
[2019-04-24] MEDS: DEXTROSE 5%-WATER - 1,000 ML with POTASSIUM CHLORIDE 10 MEQ IV SCH (12:22)
--- NOTE | 2019-04-24 12:30 | PN ---
Progress Note, Physician History of Present Illness: Pt seen and examined at bedside. She appears fatigued. She is going home on hospice tomorrow. - Current Medication List Current Medications: Active Medications Piperacillin Sod/Tazobactam (Sod 2.25 gm/ Dextrose) 50 mls @ 100 mls/hr IVPB Q8H-IV [facility]; Protocol Last Admin: 04/24/19 11:01 Dose: 100 mls/hr Potassium Chloride 10 meq/ (Dextrose) 1,005 mls @ 50 mls/hr IV Q20H [facility] Last Admin: 04/24/19 12:22 Dose: 50 mls/hr Lactobacillus Acidophilus (Bacid -) 1 tab PO DAILY [facility] Last Admin: 04/24/19 11:02 Dose: Not Given Metoprolol Succinate (Toprol Xl -) 25 mg PO BID [facility] Last Admin: 04/24/19 11:03 Dose: Not Given Mirtazapine (Remeron -) 15 mg PO HS [facility] Last Admin: 04/23/19 23:22 Dose: Not Given Morphine Sulfate (Morphine Sulfate) 1 mg IVPUSH Q6H PRN PRN Reason: COMFORT Last Admin: 04/24/19 11:01 Dose: 1 mg Ondansetron HCl (Zofran Injection) 4 mg IVPB Q4H PRN PRN Reason: NAUSEA AND/OR VOMITING Pantoprazole Sodium (Protonix -) 40 mg PO DAILY [facility] Last Admin: 04/24/19 11:02 Dose: Not Given Potassium Chloride (Potassium Chloride Oral Liquid) 40 meq PO DAILY [facility] Last Admin: 04/24/19 11:02 Dose: Not Given - Objective Vital Signs: Vital Signs Temperature 96.6 F L 04/24/19 05:45 Pulse Rate 67 04/24/19 05:45 Respiratory Rate 20 04/24/19 05:45 Blood Pressure 118/62 04/24/19 05:45 O2 Sat by Pulse Oximetry (%) 94 L 04/23/19 21:00 Constitutional: Yes: Moderate Distress Eyes: Yes: Conjunctiva Clear HENT: Yes: Atraumatic Cardiovascular: Yes: S1, S2 Respiratory: Yes: CTA Bilaterally Gastrointestinal: Yes: Normal Bowel Sounds, Soft Genitourinary: Yes: WNL Musculoskeletal: Yes: Muscle Weakness Edema: Yes Edema: LLE: 1+, RLE: 1+ Neurological: Yes: Lethargy Labs: CBC, BMP 04/24/19 05:40 04/24/19 05:40 INR, PTT INR 1.69 (0.83-1.09) H 04/18/19 06:40 Problem List - Problems (1) LILLIE (acute kidney injury) Code(s): N17.9 - ACUTE KIDNEY FAILURE, UNSPECIFIED (2) Hypernatremia Code(s): E87.0 - HYPEROSMOLALITY AND HYPERNATREMIA Assessment/Plan Current Medications Generic Name Dose Route Start Last Admin Trade Name Freq PRN Reason Stop Dose Admin Piperacillin Sod/Tazobactam 50 mls @ 100 mls/hr 04/20/19 18:00 04/24/19 11:01 Sod 2.25 gm/ Dextrose IVPB 100 mls/hr Q8H-IV [facility] Administration Protocol Potassium Chloride 10 meq/ 1,005 mls @ 50 mls/hr 04/24/19 10:15 04/24/19 12: 22 Dextrose IV 50 mls/hr Q20H [facility] Administration Lactobacillus Acidophilus 1 tab 03/31/19 12:00 04/24/19 11:02 Bacid - PO Not Given DAILY [facility] Metoprolol Succinate 25 mg 04/09/19 10:15 04/24/19 11:03 Toprol Xl - PO Not Given BID [facility] Mirtazapine 15 mg 03/28/19 22:00 04/23/19 23:22 Remeron - PO Not Given HS [facility] Morphine Sulfate 1 mg 04/21/19 18:56 04/24/19 11:01 Morphine Sulfate IVPUSH 1 mg Q6H PRN Administration COMFORT Ondansetron HCl 4 mg 04/08/19 15:37 Zofran Injection IVPB Q4H PRN NAUSEA AND/OR VOMITING Pantoprazole Sodium 40 mg 03/28/19 13:00 04/24/19 11:02 Protonix - PO Not Given DAILY [facility] Potassium Chloride 40 meq 04/18/19 10:30 04/24/19 11:02 Potassium Chloride Oral Liquid PO Not Given DAILY [facility] Impression 1. LILLIE 2. chf 3. mitral regurg 4. dementia 5. a-fib 6. hld 7. solitary right kidney 8. UTI 9. right side hydro 10. bacteremia 11. hypernatremia 12. hypokalemia 13. transaminitis Plan - labs reviewed - pt going home on hospice - fluids changed to d5w - pt getting morphine prn - cont supportive care
--- NOTE | 2019-04-24 16:58 | PN ---
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 Current Medications Piperacillin Sod/Tazobactam (Sod 2.25 gm/ Dextrose) 50 mls @ 100 mls/hr IVPB Q8H-IV [facility]; Protocol Last Admin: 04/24/19 11:01 Dose: 100 mls/hr Potassium Chloride 10 meq/ (Dextrose) 1,005 mls @ 50 mls/hr IV Q20H [facility] Last Admin: 04/24/19 12:22 Dose: 50 mls/hr Lactobacillus Acidophilus (Bacid -) 1 tab PO DAILY [facility] Last Admin: 04/24/19 11:02 Dose: Not Given Metoprolol Succinate (Toprol Xl -) 25 mg PO BID [facility] Last Admin: 04/24/19 11:03 Dose: Not Given Mirtazapine (Remeron -) 15 mg PO HS [facility] Last Admin: 04/23/19 23:22 Dose: Not Given Morphine Sulfate (Morphine Sulfate) 1 mg IVPUSH Q6H PRN PRN Reason: COMFORT Last Admin: 04/24/19 11:01 Dose: 1 mg Ondansetron HCl (Zofran Injection) 4 mg IVPB Q4H PRN PRN Reason: NAUSEA AND/OR VOMITING Pantoprazole Sodium (Protonix -) 40 mg PO DAILY [facility] Last Admin: 04/24/19 11:02 Dose: Not Given Potassium Chloride (Potassium Chloride Oral Liquid) 40 meq PO DAILY [facility] Last Admin: 04/24/19 11:02 Dose: Not Given Vital Signs Period Temp Pulse Resp BP Sys/Rice Pulse Ox Last 24 Hr 96.6 F-98.6 F 65-73 16-20 108-123/60-67 94 Constitutional: Yes: No Distress Cardiovascular: Yes: Regular Rate and Rhythm Respiratory: Yes: CTA Bilaterally (no rales) poor effort Gastrointestinal: Yes: Soft (NT) Edema: no Neurological: Yes:lethargic no jaundice diaphoresis - ....Imaging EKG: Image Reviewed Assessment/Plan IMP: Severe chronic MR with chronic valvular CHF PAF s/p PPM Bacteremia, possible IE on senior living IV abx CKD with acute renal failure Worsening transaminitis and coagulopathy, liver failure of unclear etiology likely multifactorial REC: 1. Case was discussed with her primary web services developer Dr. Bagley, renal and GI team here 12/6, with CXR clear and CT abdomen only minimal pleural effusions. -Lasix was resumed with the thinking that worsened renal function and liver fx could be reflective of poor cardiac output (passive hepatic congestion and cardiorenal syndrome). -significant weight gain vs prior discharge wt. -lasix held by renal over weekend, 1/2 NS with bicarb started for hypernatremia -CXR largely unchanged -given poor po intake, sam, hypernatremia, holding diuretic -rising bun/cr, poor prognosis - plan for home hospice 2. Off AC now due to acute liver failure and coagulopathy. 3. severe transaminitis: -w/u by GI unrevealing, statin held -? congestive-as above 4. dispo/goals of care: - palliative care following, plan for dc with home hospice
--- NOTE | 2019-04-24 17:59 | PN ---
Progress Note, Physician History of Present Illness: comfortable - Current Medication List Current Medications: Active Medications Piperacillin Sod/Tazobactam (Sod 2.25 gm/ Dextrose) 50 mls @ 100 mls/hr IVPB Q8H-IV [facility]; Protocol Last Admin: 04/24/19 17:01 Dose: Not Given Potassium Chloride 10 meq/ (Dextrose) 1,005 mls @ 50 mls/hr IV Q20H [facility] Last Admin: 04/24/19 12:22 Dose: 50 mls/hr Lactobacillus Acidophilus (Bacid -) 1 tab PO DAILY [facility] Last Admin: 04/24/19 11:02 Dose: Not Given Metoprolol Succinate (Toprol Xl -) 25 mg PO BID [facility] Last Admin: 04/24/19 11:03 Dose: Not Given Mirtazapine (Remeron -) 15 mg PO HS [facility] Last Admin: 04/23/19 23:22 Dose: Not Given Morphine Sulfate (Morphine Sulfate) 1 mg IVPUSH Q6H PRN PRN Reason: COMFORT Last Admin: 04/24/19 17:04 Dose: 1 mg Ondansetron HCl (Zofran Injection) 4 mg IVPB Q4H PRN PRN Reason: NAUSEA AND/OR VOMITING Pantoprazole Sodium (Protonix -) 40 mg PO DAILY [facility] Last Admin: 04/24/19 11:02 Dose: Not Given Potassium Chloride (Potassium Chloride Oral Liquid) 40 meq PO DAILY [facility] Last Admin: 04/24/19 11:02 Dose: Not Given - Objective Vital Signs: Vital Signs Temperature 97.4 F L 04/24/19 14:00 Pulse Rate 73 04/24/19 14:00 Respiratory Rate 16 04/24/19 14:00 Blood Pressure 118/66 04/24/19 14:00 O2 Sat by Pulse Oximetry (%) 94 L 04/23/19 21:00 Constitutional: Yes: Calm HENT: Yes: Atraumatic Cardiovascular: Yes: Regular Rate and Rhythm Respiratory: Yes: Rhonchi Gastrointestinal: Yes: Normal Bowel Sounds Extremities: Yes: WNL Edema: No Peripheral Pulses WNL: Yes Neurological: Yes: Alert Labs: CBC, BMP 04/24/19 05:40 04/24/19 05:40 INR, PTT INR 1.69 (0.83-1.09) H 04/18/19 06:40 Problem List - Problems (1) LILLIE (acute kidney injury) Code(s): N17.9 - ACUTE KIDNEY FAILURE, UNSPECIFIED (2) Elevated troponin Code(s): R74.8 - ABNORMAL LEVELS OF OTHER SERUM ENZYMES (3) CHF (congestive heart failure) Code(s): I50.9 - HEART FAILURE, UNSPECIFIED (4) Dementia Code(s): F03.90 - UNSPECIFIED DEMENTIA WITHOUT BEHAVIORAL DISTURBANCE (5) GERD (gastroesophageal reflux disease) Code(s): K21.9 - GASTRO-ESOPHAGEAL REFLUX DISEASE WITHOUT ESOPHAGITIS (6) Atrial fibrillation Code(s): I48.91 - UNSPECIFIED ATRIAL FIBRILLATION Qualifiers: Atrial fibrillation type: paroxysmal Qualified Code(s): I48.0 - Paroxysmal atrial fibrillation (7) HTN (hypertension) Code(s): I10 - ESSENTIAL (PRIMARY) HYPERTENSION (8) Positive blood culture Code(s): R78.81 - BACTEREMIA (9) Poor appetite Code(s): R63.0 - ANOREXIA (10) Hypokalemia Code(s): E87.6 - HYPOKALEMIA (11) Dehydration Code(s): E86.0 - DEHYDRATION (12) Failure to thrive Code(s): [id number] - (13) Pacemaker Code(s): Z95.0 - PRESENCE OF CARDIAC PACEMAKER (14) Feeding difficulty in elderly Code(s): R63.3 - FEEDING DIFFICULTIES (15) Abnormal liver function test Code(s): R94.5 - ABNORMAL RESULTS OF LIVER FUNCTION STUDIES Assessment/Plan for home hospice dc antibiotics as per daughter wishes
[2019-04-24] MEDS ORDERED: MORPHINE SULFATE 2 MG/ML VIAL IVPUSH PRN (18:04)
--- NOTE | 2019-04-24 19:47 | DS ---
Physical Examination Vital Signs: Vital Signs Temperature 97.4 F L 04/24/19 14:00 Pulse Rate 73 04/24/19 14:00 Respiratory Rate 16 04/24/19 14:00 Blood Pressure 118/66 04/24/19 14:00 O2 Sat by Pulse Oximetry (%) 94 L 04/23/19 21:00 Labs: CBC, BMP 04/24/19 05:40 04/24/19 05:40 Discharge Summary Problems reviewed: Yes Reason For Visit: ACUTE KIDNEY INJURY Current Active Problems LILLIE (acute kidney injury) (Acute) Abnormal liver function test (Acute) Dehydration (Acute) Elevated troponin (Acute) Failure to thrive (Acute) Feeding difficulty in elderly (Acute) Hypernatremia (Acute) Hypokalemia (Acute) Malaise (Acute) Pacemaker (Acute) Poor appetite (Acute) Positive blood culture (Acute) Weakness (Acute) Condition: Fair - Instructions Diet, Activity, Other Instructions: home hospice Referrals: Guerrero Albert [Primary Care Provider] - Elizabeth Amador MD [Staff Physician] - - Home Medications Comprehensive Discharge Medication List: Ambulatory meds Docusate Sodium [Colace] 100 mg PO TID 03/07/19 Lorazepam [Ativan] 0.5 mg PO PRN PRN 03/07/19 Metoprolol Succinate [Toprol Xl] 25 mg PO DAILY 03/07/19 Mirtazapine [Remeron -] 15 mg PO HS 03/07/19 Pantoprazole Sodium [Protonix] 40 mg PO DAILY 03/07/19
[2019-04-24] MEDS: MIRTAZAPINE 15 MG TABLET (FP) PO SCH (22:47)
[2019-04-25] MEDS: DEXTROSE 5%-WATER - 1,000 ML with POTASSIUM CHLORIDE 10 MEQ IV SCH (07:20)
[2019-04-25] MEDS: POTASSIUM CHLORIDE ORAL LIQUID 20 MEQ/15 ML PO SCH (09:33)
[2019-04-25] MEDS: LACTOBACILLUS ACIDOPHILUS 1 TABLET PO SCH (09:33)
[2019-04-25] MEDS: PANTOPRAZOLE 40 MG TABLET (FP) PO SCH (09:33)
[2019-04-25] MEDS: metoPROLOL SUCCINATE 25 MG TAB.SR.24H (FP) PO SCH (09:34)
[2019-04-25 10:25] VITALS: BP 107/50; PULSE 81; TEMP 97.2
--- NOTE | 2019-04-25 15:56 | DS ---
Physical Examination Vital Signs: Vital Signs Temperature 97.2 F L 04/25/19 10:00 Pulse Rate 81 04/25/19 10:00 Respiratory Rate 23 H 04/25/19 10:00 Blood Pressure 107/50 L 04/25/19 10:00 O2 Sat by Pulse Oximetry (%) 91 L 04/25/19 08:13 Labs: CBC, BMP 04/24/19 05:40 04/24/19 05:40 Discharge Summary Problems reviewed: Yes Reason For Visit: ACUTE KIDNEY INJURY Condition: Fair - Instructions Diet, Activity, Other Instructions: home hospice Referrals: Guerrero Albert [Primary Care Provider] - Elizabeth Amador MD [Staff Physician] - Disposition: HOME - Home Medications Comprehensive Discharge Medication List: Ambulatory Orders Docusate Sodium [Colace] 100 mg PO TID 03/07/19 Lorazepam [Ativan] 0.5 mg PO PRN PRN 03/07/19 Metoprolol Succinate [Toprol Xl] 25 mg PO DAILY 03/07/19 Mirtazapine [Remeron -] 15 mg PO HS 03/07/19 Pantoprazole Sodium [Protonix] 40 mg PO DAILY 03/07/19 home hospice
== END 2019-04-25 11:39 | disposition home or self-care (01) | DRG 871 ==
LOC: JER 13:11 → JERBED 16:29 → J4W 03-28 14:59
PROVIDERS: ADMIT Internal Medicine; ATTEND Internal Medicine
PROC: 02HV33Z Insertion of Infusion Device into Superior Vena Cava, Percutaneous Approach (ICD-10-PCS; principal; 2019-04-04)
PROC: B518ZZA Fluoroscopy of Superior Vena Cava, Guidance (ICD-10-PCS; 2019-04-04)
DX: R78.81 Bacteremia (principal); K72.00 Acute and subacute hepatic failure without coma; J15.9 Unspecified bacterial pneumonia; J69.0 Pneumonitis due to inhalation of food and vomit; I50.33 Acute on chronic diastolic (congestive) heart failure; N17.9 Acute kidney failure, unspecified; E87.0 Hyperosmolality and hypernatremia; N39.0 Urinary tract infection, site not specified; N13.30 Unspecified hydronephrosis; D68.9 Coagulation defect, unspecified; I13.0 Hypertensive heart and chronic kidney disease with heart failure and stage 1 through stage 4 chronic kidney disease, or unspecified chronic kidney disease; I47.2 Ventricular tachycardia; I47.1 Supraventricular tachycardia; R74.8 Abnormal levels of other serum enzymes; F03.90 Unspecified dementia, unspecified severity, without behavioral disturbance, psychotic disturbance, mood disturbance, and anxiety; I48.0 Paroxysmal atrial fibrillation; I34.0 Nonrheumatic mitral (valve) insufficiency; Z95.0 Presence of cardiac pacemaker; R62.7 Adult failure to thrive; E87.6 Hypokalemia; R63.2 Polyphagia; R74.0 Nonspecific elevation of levels of transaminase and lactic acid dehydrogenase [LDH]; D72.829 Elevated white blood cell count, unspecified; K21.9 Gastro-esophageal reflux disease without esophagitis; N18.9 Chronic kidney disease, unspecified; R63.0 Anorexia; E86.0 Dehydration; D64.9 Anemia, unspecified
CPT/HCPCS: 36415; 36569; 70450-TC; 71045-TC-FY; 74018-TC-FY; 74176-TC; 76700-TC; 76775-TC; 76856-TC; 77001-TC-FY; 80048; 80053; 80076; 81003; 82436; 82550; 82565; 82962; 83605; 83735; 83880; 84100; 84133; 84300; 84484; 85025; 85027; 85610; 85651; 85730; 86140; 86704; 86706; 86707; 86708; 86709; 86803; 87040; 87086; 87186; 87340; 93005; 93010; 93306-TC; 94640; 97116-GP; 97161-GP; 99285-25; C1751; G0480; J7030